=== PATIENT | female | born 1945 | race Caucasian/White ===

== ENCOUNTER → 2016-10-24 | Outpatient (CLI) | payer MEDICARE ==
--- NOTE | 2016-10-25 13:05 | MM ---
Reason for exam: screening (asymptomatic). Last mammogram was performed 1 year ago. History: Patient is postmenopausal. Excisional biopsy of the left breast. Took estrogen for 20 years beginning at age 46. Took progesterone for 20 years beginning at age 46. Physical Findings: A clinical breast exam by your physician is recommended on an annual basis and results should be correlated with mammographic findings. MG 3D Screening Mammo W/Cad Bilateral CC and MLO view(s) were taken. Prior study comparison: October 12, 2015, bilateral MG 3d screening mammo w/cad. September 24, 2013, bilateral MG screening mammo w CAD. September 14, 2012, bilateral digital screening mammo w/CAD. There are scattered fibroglandular densities. Breast density show slight increase compatible with the patients weight loss. No significant changes when compared with prior studies. ASSESSMENT: Negative, BI-RAD 1 RECOMMENDATION: Routine screening mammogram of both breasts in 1 year. Patient should continue monthly self breast exams. A negative mammogram should not preclude additional follow up of suspicious palpable abnormalities.
== END | disposition home or self-care (01) ==
LOC: RADMAMWWP 13:33
PROVIDERS: ATTEND Obstetrics & Gynecology
DX: Z12.31 Encounter for screening mammogram for malignant neoplasm of breast (principal)
CPT/HCPCS: 77063; G0202

== ENCOUNTER → 2018-12-11 | Outpatient (CLI) | payer MEDICARE ==
--- NOTE | 2018-12-14 13:16 | MM ---
Reason for exam: screening (asymptomatic). Last mammogram was performed 7 months ago. History: Patient is postmenopausal. Excisional biopsy of the left breast. Took estrogen for 20 years beginning at age 46. Took progesterone for 20 years beginning at age 46. Physical Findings: A clinical breast exam by your physician is recommended on an annual basis and results should be correlated with mammographic findings. MG 3D Screening Mammo W/Cad Bilateral CC and MLO view(s) were taken. Prior study comparison: May 20, 2018, mammogram, performed at [facility]. November 19, 2017, mammogram, performed at [facility]. November 06, 2017, mammogram, performed at [facility]. October 24, 2016, bilateral MG 3d screening mammo w/cad. October 12, 2015, bilateral MG 3d screening mammo w/cad. The breast tissue is heterogeneously dense. This may lower the sensitivity of mammography. Low axillary tail lymph nodes left posterior laterally. No significant changes when compared with prior studies. ASSESSMENT: Negative, BI-RAD 1 RECOMMENDATION: Routine screening mammogram of both breasts in 1 year.
== END | disposition home or self-care (01) ==
LOC: RADMAMWWP 12:05
PROVIDERS: ATTEND Internal Medicine
DX: Z12.31 Encounter for screening mammogram for malignant neoplasm of breast (principal); Z87.898 Personal history of other specified conditions
CPT/HCPCS: 77063; 77067

== ENCOUNTER 2019-09-08 21:05 | Inpatient (IN) | payer MEDICARE ==
[2019-09-08 22:16] LABS: Anisocytosis Slight; HCT 20.5 % (34.0-46.0); Hypochromasia Slight; MCH 31.7 pg (25.0-35.0); MCHC 32.5 g/dL (31.0-37.0); MCV 97.6 fL (80.0-100.0); Macrocytosis Slight; Mean Platelet Volume 10.3; Platelet Count 143 k/uL (150-450); Poikilocytosis Slight; RDW 17.7 % (11.5-15.5)
[2019-09-08] MEDS ORDERED: SODIUM CHLORIDE 0.9% 1,000 ML IV ONE (22:18)
--- NOTE | 2019-09-08 22:18 | ED ---
General Adult HPI - General Chief complaint: Recheck/Abnormal Lab/Rx Stated complaint: abnormal labs Time Seen by Provider: 09/08/19 21:15 Source: patient, RN/MD, EMS, RN notes reviewed, old records reviewed Mode of arrival: EMS Limitations: no limitations - History of Present Illness Initial comments: This is a 73-year-old female who presents emergency Department from [facility]. She went in there because her doctor had done some blood work and told her hemoglobin is low. Patient got a unit of blood prior to arrival here. Patient states she feels a little weak but she denied any shortness of breath or difficulty breathing. Patient denies any chest pain or palpitations. Patient was able to and bili in the emergency department and go to the bathroom on her own. Patient denied any pain. According to the [facility] physician the patient did have a guaiac positive stool. Patient's blood pressure was stable at [facility] and in transport as well as on arrival. - Related Data Home Medications Medication Instructions Recorded Confirmed Allopurinol [Zyloprim] 100 mg PO DAILY 09/08/19 09/08/19 Calcitriol [Rocaltrol] 0.25 mcg PO TU 09/08/19 09/08/19 Ferrous Sulfate [Feosol] 325 mg PO DAILY 09/08/19 09/08/19 Folate 666 mcg PO DAILY 09/08/19 09/08/19 Levothyroxine Sodium [Synthroid] 75 mcg PO DAILY 09/08/19 09/08/19 Losartan Potassium [Cozaar] 25 mg PO DAILY 09/08/19 09/08/19 NIFEdipine XL [Procardia Xl] 30 mg PO DAILY 09/08/19 09/08/19 Allergies Allergy/AdvReac Type Severity Reaction Status Date / Time No Known Allergies Allergy Unverified 09/08/19 21:40 Review of Systems ROS Statement: Those systems with pertinent positive or pertinent negative responses have been documented in the HPI. ROS Other: All systems not noted in ROS Statement are negative. Past Medical History Past Medical History: Hypertension, Renal Disease Additional Past Medical History / Comment(s): Anemia, Stage 4 kidney disease History of Any Multi-Drug Resistant Organisms: None Reported Past Surgical History: Appendectomy, Hysterectomy Past Psychological History: No Psychological Hx Reported Smoking Status: Never smoker Past Alcohol Use History: None Reported Past Drug Use History: None Reported General Exam - General Exam Comments Initial Comments: GENERAL: Patient is well-developed and well-nourished. Patient is nontoxic and well- hydrated and is in mild distress. ENT: Neck is soft and supple. No significant lymphadenopathy is noted. Oropharynx is clear. Moist mucous membranes. Neck has full range of motion without eliciting any pain. EYES: The sclera were anicteric and conjunctiva were pink and moist. Extraocular movements were intact and pupils were equal round and reactive to light. Eye lids were unremarkable. PULMONARY: Unlabored respirations. Good breath sounds bilaterally. No audible rales rhonchi or wheezing was noted. CARDIOVASCULAR: There is a regular rate and rhythm without any murmurs gallops or rubs. ABDOMEN: Soft and nontender with normal bowel sounds. No palpable organomegaly was noted. There is no palpable pulsatile mass. SKIN: Skin was pale NEUROLOGIC: Patient is alert and oriented x3. Cranial nerves II through XII are grossly intact. Motor and sensory are also intact. Normal speech, volume and content. Symmetrical smile. MUSCULOSKELETAL: Normal extremities with adequate strength and full range of motion. LYMPHATICS: No significant lymphadenopathy is noted PSYCHIATRIC: Normal psychiatric evaluation. Limitations: no limitations Course Vital Signs 09/08/19 09/08/19 21:28 22:12 Temperature 98.4 F 98.4 F Pulse Rate 89 93 Respiratory 16 16 Rate Blood Pressure 155/72 155/72 O2 Sat by Pulse 96 98 Oximetry Medical Decision Making - Medical Decision Making Patient received one unit of blood on the way and she was receiving a second unit of blood here in the emergency department. I spoke with Dr. layton. I admitted the patient admitted I wrote admitting orders. I consult the GI Disposition Clinical Impression: GI bleed, Anemia Disposition: ADMITTED IP TO THIS HOSP Referrals: Db Boyd MD [Primary Care Provider] - 1-2 days Time of Disposition: 22:17
[2019-09-08 22:23] LABS: HGB 6.7 gm/dL (11.4-16.0)
[2019-09-09 05:18] LABS: Total Cells Counted 100
[2019-09-09 05:21] LABS: Rouleaux Present
--- NOTE | 2019-09-09 06:37 | P.HPIM ---
History of Present Illness H&P Date: 09/08/19 Patient is 74-year-old female with of HTN and hypothyroidism who presented to the ED as a transfer from [facility] for severe anemia. The patient notes that she had been getting progressively weaker and feeling more lethargic over the past few weeks. She notes taking iron daily basis, and thereby did not notice any change in her stool. She denied bright red blood in her stools or bleeding ulcer. She also denied any additional complaints including abdominal pain, dizziness, nausea, or vomiting. She denied chest pain, shortness of breath, fever, chills, cough, recent travel, or sick contact. The patient underwent an extensive evaluation at [facility] which was reviewed, with hemoglobin 4.5, MCV 103.5, platelet count 135, WBC count 5.6, sodium 137, potassium 4.8, chloride 105, CO2 21, glucose 101, BUN 39, creatinine 2.3, AST 27, ALT 12, calcium 9.2, alkaline phosphatase 95, total protein 8.3, INR 1.1, fecal occult blood positive. First unit of PRBCs was ordered and the patient was transferred to [place] for GI evaluation. Review of Systems Pertinent positives and negatives as discussed in HPI, a complete review of systems was performed and all other systems are negative. Past Medical History Past Medical History: Hypertension, Renal Disease Additional Past Medical History / Comment(s): Anemia, Stage 4 kidney disease History of Any Multi-Drug Resistant Organisms: None Reported Past Surgical History: Appendectomy, Hysterectomy Past Psychological History: No Psychological Hx Reported Smoking Status: Never smoker Past Alcohol Use History: None Reported Past Drug Use History: None Reported Medications and Allergies Home Medications Medication Instructions Recorded Confirmed Type Allopurinol [Zyloprim] 100 mg PO DAILY 09/08/19 09/08/19 History Calcitriol [Rocaltrol] 0.25 mcg PO TU 09/08/19 09/08/19 History Ferrous Sulfate [Feosol] 325 mg PO DAILY 09/08/19 09/08/19 History Folate 666 mcg PO DAILY 09/08/19 09/08/19 History Levothyroxine Sodium [Synthroid] 75 mcg PO DAILY 09/08/19 09/08/19 History Losartan Potassium [Cozaar] 25 mg PO DAILY 09/08/19 09/08/19 History NIFEdipine XL [Procardia Xl] 30 mg PO DAILY 09/08/19 09/08/19 History Allergies Allergy/AdvReac Type Severity Reaction Status Date / Time No Known Allergies Allergy Unverified 09/08/19 21:40 Physical Exam Vitals: Vital Signs Temp Pulse Resp BP Pulse Ox 09/08/19 22:12 98.4 F 93 16 155/72 98 09/08/19 21:28 98.4 F 89 16 155/72 96 Intake and Output 09/08/19 09/08/19 09/08/19 06:59 14:59 22:59 Other: Weight 46.72 kg General: non toxic, no distress, appears at stated age, normal weight Derm: no unusual rashes/lesions no unusual ecchymoses, warm, dry Head: atraumatic, normocephalic, symmetric Eyes: EOMI, no lid lag, anicteric sclera, pupils equal round reactive to light ENT: Nose and ears atraumatic, no thrush, no pharyngeal erythema Neck: No thyromegaly, no cervical lymphadenopathy, trachea midline, supple Mouth: no lip lesion, mucus membranes moist Cardiovascular: S1S2 reg, no murmur, positive posterior tibial pulse bilateral, no edema, capillary refill less than 2 seconds Lungs: CTA bilateral, no rhonchi, no rales , no accessory muscle use Abdominal: soft, nontender to palpation, no guarding, no appreciable organomegaly, normal bowel sounds Ext: no gross muscle atrophy, muscle strength 5 out of 5 in all 4 extremities grossly, no contractures, Neuro: CN II-XI grossly intact, light touch intact all 4 extremities, finger to nose within normal limits, Psych: Alert, oriented, appropriate affect Results CBC & Chem 7: 09/08/19 21:49 Labs: Abnormal Lab Results - Last 24 Hours (Table) 09/08/19 Range/Units 21:49 RBC 2.10 L (3.80-5.40) m/uL Hgb 6.7 L* (11.4-16.0) gm/dL Hct 20.5 L (34.0-46.0) % RDW 17.7 H (11.5-15.5) % Plt Count 143 L (150-450) k/uL Assessment and Plan Plan: Severe anemia, likely secondary to GI bleeding with guaiac positive -Status post 1 unit of PRBCs -GI consult -Nothing by mouth for now -Monitor CBC every 8 hours Hypertension -Continue with home meds DVT prophylaxis -IPCDs The patient is admitted with an anticipated greater than 2 midnight stay for evaluation of GIB CODE STATUS: No Code Discussed with: Patient Anticipated discharge date: 2-[address]: Home A total of 40 minutes was spent on the care of this complex patient more than 5 0% of the time was spent in counseling and care coordination.
[2019-09-09 07:04] LABS: Anisocytosis Slight; HCT 26.7 % (34.0-46.0); Hypochromasia Slight; MCH 32.8 pg (25.0-35.0); MCHC 33.6 g/dL (31.0-37.0); MCV 97.8 fL (80.0-100.0); Macrocytosis Slight; Mean Platelet Volume 10.2; Platelet Count 133 k/uL (150-450); RBC 2.73 m/uL (3.80-5.40); RDW 16.6 % (11.5-15.5); WBC 4.7 k/uL (3.8-10.6)
[2019-09-09] MEDS: PANTOPRAZOLE 40 MG/10 ML VIAL IVP SCH ×2 (08:10→20:26)
[2019-09-09] MEDS: ALLOPURINOL 100 MG TAB PO SCH (08:10)
[2019-09-09] MEDS: LOSARTAN 25 MG TAB PO SCH (08:10)
[2019-09-09 08:51] LABS: Band Neutrophils % 7 %; Blast Cells # (M) 1.73 k/uL (0); Lymphocytes # (M) 1.97 k/uL (1.0-4.8); Metamyelocytes # (M) 0.05 k/uL (0); Metamyelocytes % 1 %; Monocytes # (M) 0.14 k/uL (0-1.0); Neutrophils % (M) 9 %; Nucleated Red Blood Cells 3 /100 WBC (0-0); Promyelocytes # (M) 0.14 k/uL (0); Promyelocytes % 3 %; WBC 4.8 k/uL (3.8-10.6)
[2019-09-09] MEDS ORDERED: NIFEdipine XL 30 MG TAB.ER.24 PO SCH (09:00)
[2019-09-09] MEDS ORDERED: FOLATE 666 MCG PO SCH (09:00)
[2019-09-09 09:51] LABS: Band Neutrophils % 1 %; Metamyelocytes # (M) 0.05 k/uL (0); Metamyelocytes % 1 %; Monocytes # (M) 0.42 k/uL (0-1.0); Neutrophils % (M) 21 %; Nucleated Red Blood Cells 0 /100 WBC (0-0)
[2019-09-09 09:53] LABS: Plasma Cells # (M) 0.09 k/uL (0)
[2019-09-09 09:54] LABS: Myelocytes # (M) 0.05 k/uL (0); Myelocytes % 1 %; Total Cells Counted 100
[2019-09-09 09:55] LABS: Blast Cells # (M) 1.65 k/uL (0)
[2019-09-09 14:00] VITALS: BMI 23.5
--- NOTE | 2019-09-09 14:55 | P.CONS ---
History of Present Illness - Reason for Consult Consult date: 09/09/19 blasts in peripheral blood Requesting physician: Milad Fernandes - Chief Complaint severe anemia - History of Present Illness Mrs. Jules is a very pleasant female who has been following with Dr. Chavez since 2011 as she has a history of ITP, no treatment, has been on observation only. She had non diagnostic bone marrow biopsies in August 2007 and February 2009. She is followed by Nephrology for CKD and subsequent anemia, on oral iron, no other treatment. Pt had routine labs and was found to be more anemic then he baseline (8-9), her occult was +, she had c/o progressive weakness, lethargy, severe tiredness, decreased appetite over the last 2-3 weeks. She was transferred here for further eval and work up. Her CBC on admit showed a 6.4 Hgb so, another unit was transfused, Hgb 9. On both CBCs blasts were found, 36% and 35% respectively. Pt denies fevers, recent illness, night sweats, new or unusual pain, difficulty swallowing, N,V, mild SOB on exertion, no chest pain, abd pain, acute changes in bowel or bladder habits. Review of Systems 14 point ROS is negative except as stated in HPI Past Medical History Past Medical History: Blood Disorder (ITP, anemia of CKD), Hypertension, Renal Disease Additional Past Medical History / Comment(s): Anemia, Stage 4 kidney disease History of Any Multi-Drug Resistant Organisms: None Reported Past Surgical History: Appendectomy, Hysterectomy Past Anesthesia/Blood Transfusion Reactions: No Reported Reaction Past Psychological History: No Psychological Hx Reported Smoking Status: Never smoker Past Alcohol Use History: None Reported Past Drug Use History: None Reported Medications and Allergies Home Medications Medication Instructions Recorded Confirmed Type Allopurinol [Zyloprim] 100 mg PO DAILY 09/08/19 09/08/19 History Calcitriol [Rocaltrol] 0.25 mcg PO TU 09/08/19 09/08/19 History Ferrous Sulfate [Feosol] 325 mg PO DAILY 09/08/19 09/08/19 History Folate 666 mcg PO DAILY 09/08/19 09/08/19 History Levothyroxine Sodium [Synthroid] 75 mcg PO DAILY 09/08/19 09/08/19 History Losartan Potassium [Cozaar] 25 mg PO DAILY 09/08/19 09/08/19 History NIFEdipine XL [Procardia Xl] 30 mg PO DAILY 09/08/19 09/08/19 History Allergies Allergy/AdvReac Type Severity Reaction Status Date / Time No Known Allergies Allergy Unverified 09/08/19 21:40 Physical Exam Vitals: Vital Signs Temp Pulse Pulse Resp BP BP Pulse Ox 09/09/19 11:01 16 09/09/19 11:00 98.8 F 82 16 145/72 96 09/09/19 08:09 16 09/09/19 08:07 98.2 F 80 16 156/84 97 09/09/19 04:00 98.3 F 81 16 166/73 96 09/08/19 22:48 98.3 F 81 17 164/70 97 09/08/19 22:12 98.4 F 93 16 155/72 98 09/08/19 21:28 98.4 F 89 16 155/72 96 Intake and Output 09/08/19 09/09/19 09/09/19 22:59 06:59 14:59 Intake Total 0 1290 Balance 0 1290 Intake: IV 630 Invasive Line 3 30 Sodium Chloride 0.9% 1, 600 000 ml @ 75 mls/hr IV . [id number] ONE Rx#:[id number] Oral 660 Blood Product 0 Rc As-1 Unit 0 [id number] Other: Voiding Method Toilet Toilet # Voids 2 Weight 45.9 kg 45.9 kg 45.9 kg - Constitutional General appearance: average body habitus, cooperative, no acute distress - EENT Eyes: anicteric sclerae, EOMI ENT: hearing grossly normal, normal oropharynx - Neck Neck: no lymphadenopathy - Respiratory Respiratory: bilateral: CTA - Cardiovascular Rhythm: regular Heart sounds: normal: S1, S2 Abnormal Heart Sounds: systolic murmur (2/6, RSB, 4th ICS) leg Peripheral Edema: bilateral: None - Gastrointestinal General gastrointestinal: no absent bowel sounds, no decreased bowel sounds, no distended, no hepatomegaly, no hyperactive bowel sounds, normal bowel sounds, no organomegaly, no rigid, no scaphoid, soft, no splenomegaly, no tenderness, no umbilical hernia, no ventral hernia - Integumentary Integumentary: pale - Neurologic Neurologic: CNII-XII intact - Musculoskeletal Musculoskeletal: generalized weakness, strength equal bilaterally - Psychiatric Psychiatric: A&O x's 3, appropriate affect, intact judgment & insight Results CBC & Chem 7: 09/09/19 06:11 Labs: Abnormal Lab Results - Last 24 Hours (Table) 09/08/19 09/08/19 09/09/19 Range/Units 21:49 21:49 06:11 RBC 2.10 L 2.73 L (3.80-5.40) m/uL Hgb 6.7 L* 9.0 L D (11.4-16.0) gm/dL Hct 20.5 L 26.7 L (34.0-46.0) % RDW 17.7 H 16.6 H (11.5-15.5) % Plt Count 143 L 133 L (150-450) k/uL Blast Cells % 36 H* 35 H* % Neutrophils # (Manual) 0.70 L 1.00 L (1.3-7.7) k/uL Metamyelocytes # (Man) 0.05 H 0.05 H (0) k/uL Myelocytes # (Manual) 0.05 H (0) k/uL Promyelocytes # (Man) 0.14 H (0) k/uL Blast Cells # (Man) 1.73 H 1.65 H (0) k/uL Plasma Cell # (Manual) 0.09 H (0) k/uL Nucleated RBCs 3 H (0-0) /100 WBC Crossmatch See Detail Assessment and Plan (1) GI bleed Narrative/Plan: GI evaluation. Current Visit: Yes Status: Acute Priority: High Code(s): K92.2 - GASTROINTESTINAL HEMORRHAGE, UNSPECIFIED SNOMED Code(s): 46184531 (2) Idiopathic thrombocytopenic purpura Narrative/Plan: History of, no treatment for the same, been on monitoring since 2011. Plt 133K, no acute intervention Current Visit: No Status: Chronic Priority: Low Code(s): D69.3 - IMMUNE THROMBOCYTOPENIC PURPURA SNOMED Code(s): 41842949 (3) Anemia in chronic kidney disease Narrative/Plan: Hgb baseline 8-9 range. No EPO supplementation. Transfuse if Hgb <7 Current Visit: Yes Status: Chronic Priority: High Code(s): N18.9 - CHRONIC KIDNEY DISEASE, UNSPECIFIED; D63.1 - ANEMIA IN CHRONIC KIDNEY DISEASE SNOMED Code(s): 046023861 Plan: BLASTS in peripheral blood: 2 separate lab draws, persistent, progressive anemia (bleeding vs marrow). Her WBC and platelets are at her baseline. Pt does have B symptoms of excessive fatigue, and weakness. Agree with GI eval to rule out acute bleeding. Plan for bone marrow. Pt has had in the past so, she is aware that I may schedule her for one JESÚS. She is ok with that. No acute intervention as her counts are otherwise ok. Ordered TLS labs, CMP.
[2019-09-09 15:19] LABS: Albumin 4.3 g/dL (3.5-5.0); Calcium 9.4 mg/dL (8.4-10.2); Phosphorus 4.2 mg/dL (2.5-4.5); Potassium 4.7 mmol/L (3.5-5.1); Total Bilirubin 0.8 mg/dL (0.2-1.3); Uric Acid 6.6 mg/dL (3.7-7.4)
--- NOTE | 2019-09-09 16:01 | P.PN ---
Subjective Progress Note Date: 09/09/19 Principal diagnosis: Anemia Patient was seen and examined. No acute events overnight. Patient reports improvement in her fatigue since blood transfusion. She denies any melena or blood in her stool. She denies any abdominal pain. She denies any chest pain, shortness breath or palpitations. No nausea or vomiting. No fever or chills. Objective - Vital Signs Vital signs: Vital Signs Temp 98.8 F 09/09/19 11:00 Pulse 82 09/09/19 11:00 Resp 16 09/09/19 11:01 BP 145/72 09/09/19 11:00 Pulse Ox 96 09/09/19 11:00 Intake & Output 09/08/19 09/09/19 09/09/19 18:59 06:59 18:59 Intake Total 0 1290 Balance 0 1290 Weight 45.9 kg 45.9 kg Intake: IV 630 Invasive Line 3 30 Sodium Chloride 0.9% 1, 600 000 ml @ 75 mls/hr IV . [id number] ONE Rx#:[id number] Oral 660 Blood Product 0 Rc As-1 Unit 0 [id number] Other: Voiding Method Toilet Toilet # Voids 2 - Exam General: [non toxic], [no distress], [appears at stated age] Derm: [warm], [dry] Head: [atraumatic], [normocephalic], [symmetric] Eyes: [EOMI], [no lid lag], [anicteric sclera] Mouth: [no lip lesion], [mucus membranes moist] Cardiovascular: [S1S2 reg], [no murmur], [positive posterior tibial pulse bilateral], Lungs: [CTA bilateral], [no rhonchi, no rales] , [no accessory muscle use] Abdominal: [soft], [ nontender to palpation], [no guarding], [no appreciable organomegaly] Ext: [no gross muscle atrophy], [no edema], [no contractures] Neuro: [ CN II-XI grossly intact], [no focal neuro deficits] Psych: [Alert], [oriented], [appropriate affect] - Labs CBC & Chem 7: 09/09/19 06:11 09/09/19 06:11 Labs: Abnormal Lab Results - Last 24 Hours (Table) 09/08/19 09/08/19 09/09/19 Range/Units 21:49 21:49 06:11 RBC 2.10 L 2.73 L (3.80-5.40) m/uL Hgb 6.7 L* 9.0 L D (11.4-16.0) gm/dL Hct 20.5 L 26.7 L (34.0-46.0) % RDW 17.7 H 16.6 H (11.5-15.5) % Plt Count 143 L 133 L (150-450) k/uL Blast Cells % 36 H* 35 H* % Neutrophils # (Manual) 0.70 L 1.00 L (1.3-7.7) k/uL Metamyelocytes # (Man) 0.05 H 0.05 H (0) k/uL Myelocytes # (Manual) 0.05 H (0) k/uL Promyelocytes # (Man) 0.14 H (0) k/uL Blast Cells # (Man) 1.73 H 1.65 H (0) k/uL Plasma Cell # (Manual) 0.09 H (0) k/uL Nucleated RBCs 3 H (0-0) /100 WBC Chloride (98-107) mmol/L Carbon Dioxide (22-30) mmol/L BUN (7-17) mg/dL Creatinine (0.52-1.04) mg/dL Crossmatch See Detail 09/09/19 Range/Units 06:11 RBC (3.80-5.40) m/uL Hgb (11.4-16.0) gm/dL Hct (34.0-46.0) % RDW (11.5-15.5) % Plt Count (150-450) k/uL Blast Cells % % Neutrophils # (Manual) (1.3-7.7) k/uL Metamyelocytes # (Man) (0) k/uL Myelocytes # (Manual) (0) k/uL Promyelocytes # (Man) (0) k/uL Blast Cells # (Man) (0) k/uL Plasma Cell # (Manual) (0) k/uL Nucleated RBCs (0-0) /100 WBC Chloride 110 H (98-107) mmol/L Carbon Dioxide 17 L (22-30) mmol/L BUN 33 H (7-17) mg/dL Creatinine 2.01 H (0.52-1.04) mg/dL Crossmatch Assessment and Plan Assessment: 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 She was transfused 1 unit PRBC and repeat hemoglobin was 9. Her symptoms are consistent with B symptoms. Patient reports previously following with Dr. Dr. Chan. There are plans to do a bone marrow biopsy. Hematology and oncology will be consulted for further diagnosis and management. There is initial concerns for GI bleed. Patient's CBC is suggestive of leukemia rather than acute GI bleed. Iron studies have been ordered. Reticulocyte count has been ordered. Plans on EGD canceled by GI. Patient's blood pressure is 145/72. She will be continued on losartan and nifedipine. Her vitals are be monitored and medications adjusted if necessary. Synthroid will be resumed for hypothyroidism. [Patient admitted for severe anemia. Received one PRBC. Found to have blast cells on peripheral smear. Hematology and oncology consulted.]
[2019-09-09] MEDS ORDERED: ACETAMINOPHEN TAB 325 MG TAB PO PRN (18:04)
--- NOTE | 2019-09-09 22:10 | CONS ---
CONSULTATION DATE OF DICTATION: 09/09/2019 REASON FOR CONSULTATION: Severe symptomatic anemia and dark-colored stool. HISTORY OF PRESENT ILLNESS: The patient is a 73-year-old pleasant white female with history of ITP who was admitted to the hospital because of severe symptomatic anemia and hemoglobin of 6.5 g/dL. She went to the emergency room at [facility]. She was noted to have a hemoglobin of 5.8, given one unit of blood transfusion, and was transferred to [facility]. Here her repeat hemoglobin was 6.5 g/dL and she was given another unit of blood transfusion. She denies any abdominal pain. No nausea, vomiting. No rectal bleeding or melena. She was complaining of progressive weakness and not feeling well, with tiredness for the last few days' duration. We are consulted in regards to anemia and dark-colored stool. The patient has been taking iron supplements for the last one year and her stools have been always darker in color. She denies any prior history of peptic ulcer disease or recent NSAID use. Last colonoscopy in 2016 in [facility] was normal, according to the patient. PAST MEDICAL HISTORY: Her past medical history is significant for ITP, hypertension, stage IV kidney disease. PAST SURGICAL HISTORY: Appendectomy, hysterectomy. HOME MEDICATIONS: Zyloprim, calcitriol, Feosol, Synthroid, Cozaar, Procardia, folate. ALLERGIES: NO KNOWN DRUG ALLERGIES. SOCIAL HISTORY: No smoking. No alcohol use. FAMILY HISTORY: Unremarkable. REVIEW OF SYSTEMS: CARDIOPULMONARY: No chest pain or shortness of breath. GENITOURINARY: No dysuria or hematuria. MUSCULOSKELETAL: Unremarkable. SKIN: Unremarkable. ENDOCRINE: Unremarkable. PSYCHIATRIC: Unremarkable. NEUROLOGY: Unremarkable. ENT/VISION: Unremarkable. CONSTITUTIONAL: No recent weight loss. No fever, chills, night sweats. PHYSICAL EXAMINATION: She appears comfortable. No apparent distress. VITAL SIGNS: Stable. Blood pressure was 149/71, pulse rate 80, temperature 98.6. HEENT examination unremarkable. Conjunctivae pale. Sclerae anicteric. Oral cavity no lesions. NECK: No JVD or lymph node enlargement. CHEST: Clear to auscultation. HEART: Regular rate and rhythm. ABDOMEN: Soft. Bowel sounds are positive. No organomegaly. EXTREMITIES: No pedal edema. SKIN: No rashes. NEUROLOGIC: Alert and oriented x3. No focal deficits. LABS: WBC 4.8, hemoglobin 6.7, platelets 143. Repeat hemoglobin after 2 units of blood transfusion was 9. There were 35% blasts noted in the peripheral smear. BUN and creatinine are 33 and 2.01, respectively. Rest of the labs are within normal limits. IMPRESSION: 1. This is a lady who presented with progressive fatigue and weakness for the last few weeks and noted to have a hemoglobin of 5.8, requiring 2 units of blood transfusion. She had a peripheral smear that showed evidence of blasts suspicious for bone marrow pathology. Clinically no evidence of active ongoing bleeding. She did have some dark-colored stools, but probably related to iron supplements. 2. History of idiopathic thrombocytopenic purpura. RECOMMENDATIONS: 1. No need for any endoscopic intervention at the present time. 2. Agree with bone marrow biopsy. 3. Will follow with you closely. Thank you for this consultation. MMODL / IJN: [id number] /
[2019-09-09] MEDS ORDERED: NIFEdipine XL 30 MG TAB.ER.24 PO STA (23:22)
[2019-09-10] MEDS ORDERED: hydrALAZINE HCL 50 MG TAB PO STA (03:50)
[2019-09-10 04:08] VITALS: TEMP 97.7
[2019-09-10] MEDS ORDERED: MIDAZOLAM 2 MG/2 ML VIAL IV PRN (05:22)
[2019-09-10] MEDS ORDERED: LIDOCAINE 1% (10MG/ML) FOR IV START INTRADERMA PRN (05:22)
[2019-09-10] MEDS ORDERED: LACTATED RINGERS 1,000 ML IV SCH (05:30)
[2019-09-10 06:29] LABS: Calcium 9.2 mg/dL (8.4-10.2); Total Bilirubin 1.2 mg/dL (0.2-1.3); Total Protein 7.8 g/dL (6.3-8.2)
[2019-09-10] MEDS ORDERED: LEVOTHYROXINE 75 MCG TAB PO SCH (06:30)
[2019-09-10 07:04] LABS: Reticulocyte % 2.2 % (0.5-2.0)
[2019-09-10] MEDS: PANTOPRAZOLE 40 MG/10 ML VIAL IVP SCH (09:22)
[2019-09-10] MEDS: ALLOPURINOL 100 MG TAB PO SCH (09:23)
[2019-09-10] MEDS: LOSARTAN 25 MG TAB PO SCH (09:23)
[2019-09-10 10:17] LABS: Anisocytosis Slight; HCT 28.9 % (34.0-46.0); HGB 9.1 gm/dL (11.4-16.0); Hypochromasia Slight; MCHC 31.5 g/dL (31.0-37.0); MCV 98.3 fL (80.0-100.0); Macrocytosis Slight; Mean Platelet Volume 11.7; Platelet Count 106 k/uL (150-450); RBC 2.94 m/uL (3.80-5.40); RDW 16.8 % (11.5-15.5)
[2019-09-10 10:59] LABS: Band Neutrophils % 7 %; Blast Cells # (M) 0.68 k/uL (0); Metamyelocytes # (M) 0.04 k/uL (0); Metamyelocytes % 1 %; Monocytes # (M) 0.16 k/uL (0-1.0); Neutrophils % (M) 21 %; Nucleated Red Blood Cells 4 /100 WBC (0-0); Total Cells Counted 100
[2019-09-10 11:00] LABS: Poikilocytosis (M) Present
[2019-09-10 12:07] VITALS: BP 135/73; PULSE 89; RESP 16
[2019-09-10 12:07] LABS: % Iron Saturation 48.51 (12.00-45.00)
--- NOTE | 2019-09-10 12:57 | P.PN ---
Subjective Progress Note Date: 09/10/19 Principal diagnosis: Anemia Patient was seen and examined. No acute events overnight. Patient reports improvement in her fatigue since blood transfusion. She denies any melena or blood in her stool. She denies any abdominal pain. She denies any chest pain, shortness breath or palpitations. No nausea or vomiting. No fever or chills. Upset that she can't eat anything until her biopsy. States that today [birth year] birthday. Objective - Vital Signs Vital signs: Vital Signs Temp 97.7 F 09/10/19 08:00 Pulse 89 09/10/19 12:00 Resp 16 09/10/19 12:00 BP 135/73 09/10/19 12:00 Pulse Ox 96 09/10/19 12:00 Intake & Output 09/09/19 09/10/19 09/10/19 18:59 06:59 18:59 Intake Total 1640 310 Output Total 700 Balance 1640 -390 Weight 45.9 kg 46 kg Intake: IV 630 Invasive Line 3 30 Sodium Chloride 0.9% 1, 600 000 ml @ 75 mls/hr IV . [id number] Rx#:[id number] Oral 1010 Blood Product 310 Rc As-1 Unit 310 [id number] Output: Urine 700 Other: Voiding Method Toilet Toilet # Voids 2 - Exam General: [non toxic], [no distress], [appears at stated age] Derm: [warm], [dry] Head: [atraumatic], [normocephalic], [symmetric] Eyes: [EOMI], [no lid lag], [anicteric sclera] Mouth: [no lip lesion], [mucus membranes moist] Cardiovascular: [S1S2 reg], [no murmur], [positive posterior tibial pulse bilateral], Lungs: [CTA bilateral], [no rhonchi, no rales] , [no accessory muscle use] Abdominal: [soft], [ nontender to palpation], [no guarding], [no appreciable organomegaly] Ext: [no gross muscle atrophy], [no edema], [no contractures] Neuro: [no focal neuro deficits] Psych: [Alert], [oriented], [appropriate affect] - Labs CBC & Chem 7: 09/10/19 05:39 09/10/19 05:39 Labs: Abnormal Lab Results - Last 24 Hours (Table) 09/08/19 09/08/19 09/09/19 Range/Units 21:49 21:49 06:11 RBC (3.80-5.40) m/uL Hgb (11.4-16.0) gm/dL Hct (34.0-46.0) % RDW (11.5-15.5) % Plt Count (150-450) k/uL Blast Cells % % Neutrophils # (Manual) (1.3-7.7) k/uL Metamyelocytes # (Man) (0) k/uL Blast Cells # (Man) (0) k/uL Nucleated RBCs (0-0) /100 WBC Pathologist Review See comment A Retic Count (0.5-2.0) % Chloride 110 H (98-107) mmol/L Carbon Dioxide 17 L (22-30) mmol/L BUN 33 H (7-17) mg/dL Creatinine 2.01 H (0.52-1.04) mg/dL % Saturation (12.00-45.00) Crossmatch See Detail 09/10/19 09/10/19 09/10/19 Range/Units 05:39 05:39 05:39 RBC 2.94 L (3.80-5.40) m/uL Hgb 9.1 L (11.4-16.0) gm/dL Hct 28.9 L (34.0-46.0) % RDW 16.8 H (11.5-15.5) % Plt Count 106 L (150-450) k/uL Blast Cells % 17 H* % Neutrophils # (Manual) 1.10 L (1.3-7.7) k/uL Metamyelocytes # (Man) 0.04 H (0) k/uL Blast Cells # (Man) 0.68 H (0) k/uL Nucleated RBCs 4 H (0-0) /100 WBC Pathologist Review Retic Count 2.2 H (0.5-2.0) % Chloride 109 H (98-107) mmol/L Carbon Dioxide (22-30) mmol/L BUN 30 H (7-17) mg/dL Creatinine 2.12 H (0.52-1.04) mg/dL % Saturation 48.51 H (12.00-45.00) Crossmatch Assessment and Plan Assessment: 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 She was transfused 1 unit PRBC and repeat hemoglobin was 9, 9.1. Her symptoms are consistent with B symptoms. Patient reports previously following with Dr. Dr. Chan. There are plans to do a bone marrow biopsy today. Hematology and oncology will be consulted for further diagnosis and management. There is initial concerns for GI bleed. Patient's CBC is suggestive of leukemia rather than acute GI bleed. Iron studies are relatively normal and reticulocyte count is slightly elevated.. Plans on EGD canceled by GI. Patient's blood pressure is 135/73. She will be continued on losartan and nifedipine. Her vitals are be monitored and medications adjusted if necessary. Synthroid will be resumed for hypothyroidism. [Patient admitted for severe anemia. Received one PRBC. Found to have blast cells on peripheral smear. Plans for bone marrow biopsy today. Hematology and oncology consulted for further management.]
[2019-09-10] MEDS ORDERED: IV FLUID CONTINUATION 700 ML IV ONE (14:07)
[2019-09-10] MEDS ORDERED: PROPOFOL 10 MG/ML 20 ML VIAL IV ONE ×2 (14:09)
--- NOTE | 2019-09-10 14:35 | P.PCN ---
Date of Procedure: 09/10/19 Preoperative Diagnosis: Anemia, blasts on peripheral smear, suspected acute leukemia Postoperative Diagnosis: Same Procedure(s) Performed: Bone marrow aspiration biopsy Anesthesia: MAC Surgeon: Keagan Escobar High Pressure Firer #1: Stated None Estimated Blood Loss (ml): 1 Pathology: other Condition: stable Disposition: floor Indications for Procedure: Progressive anemia, new onset of blasts on peripheral smear. Operative Findings: Adequate samples Description of Procedure: The procedure was explained indicated to the patient on the floor. Informed consent was obtained on the floor. She was brought to the outpatient endoscopy suite and placed in the left lateral decubitus position. The area over both posterior iliac crests was cleaned and prepped with chlorhexidine and sterile draping. IV sedation was then initiated. Local anesthesia was administered with lidocaine to the right posterior hilar crest. A Jamshidi needle was then inserted and bone marrow aspirate and biopsy obtained. On the first pass the amount of aspirate was quite small. Therefore an additional past was made with adequate aspirate obtained. On withdrawal of the needle hemostasis was easily achieved. Blood loss was minimal and recovery from sedation satisfactory. She appeared to have tolerated the procedure well without any obvious immediate complications.
--- NOTE | 2019-09-11 00:57 | P.PN ---
Subjective Progress Note Date: 09/11/19 Patient was evaluated prior to her bone marrow. She continues to have some generalized weakness and fatigue. She denied any fever or chills. No unusual bleeding or bruising noted. Objective - Vital Signs Vital signs: Vital Signs Temp 97.7 F 09/10/19 08:00 Pulse 89 09/10/19 12:00 Resp 16 09/10/19 12:00 BP 135/73 09/10/19 12:00 Pulse Ox 96 09/10/19 12:00 Intake & Output 09/10/19 09/10/19 09/11/19 06:59 18:59 06:59 Intake Total 310 300 Output Total 700 Balance -390 300 Weight 46 kg Intake: IV 300 Blood Product 310 Rc As-1 Unit 310 [id number] Output: Urine 700 Other: Voiding Method Toilet # Voids 1 - Constitutional General appearance: Present: no acute distress - EENT Eyes: Present: EOMI ENT: Present: hearing grossly normal, normal oropharynx - Respiratory Respiratory: bilateral: CTA - Cardiovascular Rhythm: regular Heart sounds: normal: S1, S2 - Gastrointestinal General gastrointestinal: Present: normal bowel sounds, soft - Integumentary Integumentary: Present: normal - Neurologic Neurologic: Present: CNII-XII intact - Musculoskeletal Musculoskeletal: Present: generalized weakness, strength equal bilaterally - Psychiatric Psychiatric: Present: A&O x's 3 - Labs CBC & Chem 7: 09/10/19 05:39 09/10/19 05:39 Labs: Abnormal Lab Results - Last 24 Hours (Table) 09/10/19 09/10/19 09/10/19 Range/Units 05:39 05:39 05:39 RBC 2.94 L (3.80-5.40) m/uL Hgb 9.1 L (11.4-16.0) gm/dL Hct 28.9 L (34.0-46.0) % RDW 16.8 H (11.5-15.5) % Plt Count 106 L (150-450) k/uL Blast Cells % 17 H* % Neutrophils # (Manual) 1.10 L (1.3-7.7) k/uL Metamyelocytes # (Man) 0.04 H (0) k/uL Blast Cells # (Man) 0.68 H (0) k/uL Nucleated RBCs 4 H (0-0) /100 WBC Retic Count 2.2 H (0.5-2.0) % Chloride 109 H (98-107) mmol/L BUN 30 H (7-17) mg/dL Creatinine 2.12 H (0.52-1.04) mg/dL % Saturation 48.51 H (12.00-45.00) Lactate Dehydrogenase (313-618) U/L 09/10/19 Range/Units 05:39 RBC (3.80-5.40) m/uL Hgb (11.4-16.0) gm/dL Hct (34.0-46.0) % RDW (11.5-15.5) % Plt Count (150-450) k/uL Blast Cells % % Neutrophils # (Manual) (1.3-7.7) k/uL Metamyelocytes # (Man) (0) k/uL Blast Cells # (Man) (0) k/uL Nucleated RBCs (0-0) /100 WBC Retic Count (0.5-2.0) % Chloride (98-107) mmol/L BUN (7-17) mg/dL Creatinine (0.52-1.04) mg/dL % Saturation (12.00-45.00) Lactate Dehydrogenase 1342 H (313-618) U/L Assessment and Plan (1) Anemia Narrative/Plan: Patient's hemoglobin is stable posttransfusion. It is currently stable in a safe range. Workup so far indicates that this is a hypoproliferative anemia, due to a primary bone marrow disorder Status: Acute Code(s): D64.9 - ANEMIA, UNSPECIFIED SNOMED Code(s): 456970564 (2) Blood dyscrasia Narrative/Plan: While total CBC is normal, the patient has obvious left shift with significant number of blasts. This is highly suspicious for primary bone marrow disorder, including acute leukemia, evolved from underlying myelodysplasia, or myelodysplasia in evolution among the differentials. Therefore bone marrow asp iration biopsy is being performed for further workup. Status: Acute Code(s): D75.9 - DISEASE OF BLOOD AND BLOOD-FORMING ORGANS, UNSPECIFIED SNOMED Code(s): 348656481 Plan: Add: As patient's hemoglobin and platelets are in a safe range, from our standpoint it is okay to discharge the patient home. We will monitor counts as an outpatient for supportive transfusions as needed. She'll follow-up in the office next week for the same. She'll follow-up with Dr. Chavez on 09/20/19 for discussion of bone marrow results. Case, and further plan from the hematology standpoint discussed in detail with the admitting service
[2019-09-14] MEDS ORDERED: CALCITRIOL 0.25 MCG CAP PO SCH (09:00)
--- NOTE | 2019-09-14 16:09 | P.DS ---
Providers Date of admission: 09/08/19 22:18 Expected date of discharge: 09/10/19 Attending physician: Mercy Carias MD Consults: 09/08/19 22:18 Consult Physician Urgent Consulting Provider: Joanna Rich Consult Reason/Comments: GI bleed Do you want consulting provider notified?: Yes 09/09/19 09:56 Consult Physician Stat Consulting Provider: Keagan Escobar Consult Reason/Comments: blast cells Do you want consulting provider notified?: Yes Primary care physician: [facility] Course: Patient is 74-year-old female with of HTN and hypothyroidism who presented to the ED as a transfer from [facility] for severe anemia. The patient notes that she had been getting progressively weaker and feeling more lethargic over the past few weeks. She notes taking iron daily basis, and thereby did not notice any change in her stool. She denied bright red blood in her stools or bleeding ulcer. She also denied any additional complaints including abdominal pain, dizziness, nausea, or vomiting. She denied chest pain, shortness of breath, fever, chills, cough, recent travel, or sick contact. The patient underwent an extensive evaluation at [facility] which was reviewed, with hemoglobin 4.5, MCV 103.5, platelet count 135, WBC count 5.6, sodium 137, potassium 4.8, chloride 105, CO2 21, glucose 101, BUN 39, creatinine 2.3, AST 27, ALT 12, calcium 9.2, alkaline phosphatase 95, total protein 8.3, INR 1.1, fecal occult blood positive. First unit of PRBCs was ordered and the patient was transferred to [place] for GI evaluation. Patient admitted with hemoglobin of 6.7 with 36% blast cells. She was transfused 1 unit PRBC and repeat hemoglobin was 9, 9.1. Her symptoms were consistent with B symptoms. GI was consulted due to her guaiac positive results but EGD was canceled when her source of anemia was thought to be related to leukemic process rather than GI bleed. Otherwise, her home medication was resumed for hypertension and hypothyroidism. She underwent bone marrow biopsy and was cleared for discharge with outpatient oncology follow-up. 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 She was transfused 1 unit PRBC and repeat hemoglobin was 9, 9.1. Her symptoms are consistent with B symptoms. Patient reports previously following with Dr. Dr. Chan. There are plans to do a bone marrow biopsy today. Hematology and oncology will be consulted for further diagnosis and management. There is initial concerns for GI bleed. Patient's CBC is suggestive of leukemia rather than acute GI bleed. Iron studies are relatively normal and reticulocyte count is slightly elevated. Plans on EGD canceled by GI. Patient's blood pressure is 135/73. She will be continued on losartan and nifedipine. Her vitals are be monitored and medications adjusted if necessary. Synthroid will be resumed for hypothyroidism. [Patient admitted for severe anemia. Received one PRBC. Found to have blast cells on peripheral smear. Plans for bone marrow biopsy today. Discussed with Dr. Escobar, patient cleared for discharge after her biopsy for follow up with oncology in the outpatient setting. This complex discharge took about 35 minutes to complete.] Pertinent Studies: Peripheral blood smear Procedures: Bone marrow biopsy Patient Condition at Discharge: Stable Plan - Discharge Summary Discharge Rx Participant: No New Discharge Prescriptions: Continue NIFEdipine XL [Procardia XL] 30 mg PO DAILY Losartan Potassium [Cozaar] 25 mg PO DAILY Levothyroxine Sodium [Synthroid] 75 mcg PO DAILY Ferrous Sulfate [Iron (65 MG Elemental)] 325 mg PO DAILY Calcitriol [Rocaltrol] 0.25 mcg PO TU Allopurinol [Zyloprim] 100 mg PO DAILY Folate 666 mcg PO DAILY Discharge Medication List Allopurinol [Zyloprim] 100 mg PO DAILY 09/08/19 [History] Calcitriol [Rocaltrol] 0.25 mcg PO TU 09/08/19 [History] Ferrous Sulfate [Iron (65 MG Elemental)] 325 mg PO DAILY 09/08/19 [History] Folate 666 mcg PO DAILY 09/08/19 [History] Levothyroxine Sodium [Synthroid] 75 mcg PO DAILY 09/08/19 [History] Losartan Potassium [Cozaar] 25 mg PO DAILY 09/08/19 [History] NIFEdipine XL [Procardia XL] 30 mg PO DAILY 09/08/19 [History] Follow up Appointment(s)/Referral(s): Jessy Woodall NPC [Nurse Practitioner] - 09/14/19 2:00 pm Db Boyd MD [Primary Care Provider] - 1-2 days (Please call this office Friday morning to schedule an appointment) Patient Instructions/Handouts: Low-Sodium Diet (DC), Anemia (DC) Activity/Diet/Wound Care/Special Instructions: Diet: Low-salt Follow-up with PCP within 3 days of discharge. Follow-up with hematology within 1 week of discharge. Follow-up with Dr. Merrill within 2 weeks of discharge. Follow-up care core loader for results of your bone marrow biopsy Discharge Disposition: HOME SELF-CARE
== END 2019-09-10 16:38 | disposition home or self-care (01) | DRG 835 ==
LOC: EC 21:05 → SUPCPDRO 21:05 → 3SCARD 22:18
PROVIDERS: ADMIT Internal Medicine; ATTEND Internal Medicine
PROC: 30233N1 Transfusion of Nonautologous Red Blood Cells into Peripheral Vein, Percutaneous Approach (ICD-10-PCS; principal; 2019-09-08)
PROC: 07DR3ZX Extraction of Iliac Bone Marrow, Percutaneous Approach, Diagnostic (ICD-10-PCS; 2019-09-10)
DX: C92.00 Acute myeloblastic leukemia, not having achieved remission (principal); D61.9 Aplastic anemia, unspecified; D69.3 Immune thrombocytopenic purpura; K92.1 Melena; N18.4 Chronic kidney disease, stage 4 (severe); D63.1 Anemia in chronic kidney disease; E03.9 Hypothyroidism, unspecified; I12.9 Hypertensive chronic kidney disease with stage 1 through stage 4 chronic kidney disease, or unspecified chronic kidney disease; Z79.890 Hormone replacement therapy; Z79.899 Other long term (current) drug therapy; Z90.710 Acquired absence of both cervix and uterus; Z90.49 Acquired absence of other specified parts of digestive tract; Z11.59 Encounter for screening for other viral diseases; D75.9 Disease of blood and blood-forming organs, unspecified; Z66 Do not resuscitate
CPT/HCPCS: 36415; 36430; 38222; 80053; 82607; 82747; 83540; 83550; 83615; 84100; 84550; 85025; 85045; 86850; 86900; 86901; 86920; 96360; 96361; 99285

== ENCOUNTER 2019-09-24 12:16 | Day surgery (SDC) | payer MEDICARE ==
[2019-09-24] MEDS ORDERED: LIDOCAINE 1% INJ 10MG/ML (20 ML MDV) ONE (13:03)
[2019-09-24] MEDS ORDERED: LIDOCAINE 1% INJ 10MG/ML (20 ML MDV) SQ ONE (13:10)
[2019-09-24 13:38] VITALS: PULSE 70; RESP 16; TEMP 98.3
--- NOTE | 2019-09-24 13:53 | IR ---
PICC LINE PLACEMENT: HISTORY: Chemotherapy PROCEDURE: Ultrasound and fluoroscopic guidance of PICC line placement. COMPLICATIONS: None ANESTHESIA: 1. 1% Lidocaine locally. FINDINGS/TECHNIQUE: The procedure was explained to the patient. The risks, complications, benefits and alternatives were discussed and any questions were answered. Informed consent was obtained. The patient was placed supine on the fluoroscopic table and prepped and draped in the usual sterile fash ion. Utilizing a 21 gauge needle and sonographic and fluoroscopic guidance, access in the left basi lic vein was achieved and there is placement of a 0.018 guidewire. The vein is patent. A 5-Fr sheat h was placed over the guidewire. The guidewire and dilator were removed and a 5-F. Double lumen PICC line was placed through the sheath with the tip at the level of the SVC. The sheath was removed, th e catheter was flushed and sutured into position. The patient was stable throughout the procedure an d remained stable upon discharge from the Department of Radiology. The vein puncture was patent under ultrasound. A arroyo scale image was obtained to document patency of the vein punctured. All elements of the maximal barrier technique were utilized. FLUOROSCOPY TIME: 0.1 minutes IMPRESSION: Successful PICC double lumen line placement under ultrasound and fluoroscopic guidance.
[2019-09-24 17:18] VITALS: BP 157/77
== END 2019-09-24 14:40 | disposition home or self-care (01) ==
LOC: CATHCVL 12:16
PROVIDERS: ATTEND Radiology Diagnostic Radiology
DX: C95.90 Leukemia, unspecified not having achieved remission (principal); D63.1 Anemia in chronic kidney disease; D63.8 Anemia in other chronic diseases classified elsewhere; E03.9 Hypothyroidism, unspecified; I12.9 Hypertensive chronic kidney disease with stage 1 through stage 4 chronic kidney disease, or unspecified chronic kidney disease; N18.4 Chronic kidney disease, stage 4 (severe); Z90.49 Acquired absence of other specified parts of digestive tract; Z90.710 Acquired absence of both cervix and uterus; Z79.899 Other long term (current) drug therapy; Z79.890 Hormone replacement therapy
CPT/HCPCS: 36573; C1751; C1769; J2001

== ENCOUNTER 2019-09-27 09:53 | Inpatient (IN) | payer MEDICARE ==
[2019-09-27] MEDS: SODIUM CHLORIDE 0.9% 1,000 ML IV SCH ×3 (11:05→20:53)
[2019-09-27] MEDS: VORICONAZOLE 200 MG PO SCH ×2 (11:06→21:03)
[2019-09-27] MEDS: VENCLEXTA 100 MG PO SCH (11:06)
[2019-09-27 11:24] LABS: Albumin 4.4 g/dL (3.5-5.0); Calcium 9.2 mg/dL (8.4-10.2); Magnesium 1.9 mg/dL (1.6-2.3); Phosphorus 3.9 mg/dL (2.5-4.5); Potassium 5.2 mmol/L (3.5-5.1); Total Bilirubin 0.7 mg/dL (0.2-1.3); Total Protein 8.2 g/dL (6.3-8.2); Uric Acid 5.8 mg/dL (3.7-7.4)
[2019-09-27 11:29] LABS: Anisocytosis Slight; Hypochromasia Slight; MCH 31.3 pg (25.0-35.0); MCHC 31.8 g/dL (31.0-37.0); MCV 98.2 fL (80.0-100.0); Macrocytosis Slight; Mean Platelet Volume 11.1; Platelet Count 100 k/uL (150-450); RBC 2.13 m/uL (3.80-5.40); RDW 16.6 % (11.5-15.5)
[2019-09-27 11:45] LABS: HGB 6.7 gm/dL (11.4-16.0)
[2019-09-27] MEDS: SALT AND SODA MOUTHWASH 1,000 ML PO SCH ×3 (12:17→20:52)
[2019-09-27] MEDS: [UNRECOGNIZED DRUG - OTHER] IV SCH (12:18)
[2019-09-27] MEDS: SODIUM CHLORIDE 0.9% IV SCH (12:18)
[2019-09-27 12:20] LABS: Band Neutrophils % 3 %; Lymphocytes # (M) 2.75 k/uL (1.0-4.8); Metamyelocytes # (M) 0.11 k/uL (0); Metamyelocytes % 1 %; Monocytes # (M) 1.32 k/uL (0-1.0); Myelocytes # (M) 0.22 k/uL (0); Myelocytes % 2 %; Neutrophils % (M) 10 %
[2019-09-27 12:21] LABS: Nucleated Red Blood Cells 0 /100 WBC (0-0); Total Cells Counted 200
[2019-09-27 12:22] LABS: Poikilocytosis (M) Present
[2019-09-27] MEDS ORDERED: ONDANSETRON 4 MG/2 ML VIAL IVP PRN (12:42)
[2019-09-27] MEDS ORDERED: LOPERAMIDE 2 MG CAP PO PRN (12:42)
[2019-09-27] MEDS ORDERED: MAGNESIUM HYDROXIDE 2,400 MG/10 ML CUP PO PRN (12:42)
[2019-09-27 15:43] LABS: Anisocytosis Slight; Hypochromasia Slight; MCH 30.5 pg (25.0-35.0); MCHC 31.5 g/dL (31.0-37.0); MCV 96.7 fL (80.0-100.0); Macrocytosis Slight; Mean Platelet Volume 11.2; RBC 2.01 m/uL (3.80-5.40); RDW 16.7 % (11.5-15.5); WBC 7.1 k/uL (3.8-10.6)
[2019-09-27 15:52] LABS: Albumin 3.9 g/dL (3.5-5.0); Calcium 8.6 mg/dL (8.4-10.2); Phosphorus 3.6 mg/dL (2.5-4.5); Total Bilirubin 0.5 mg/dL (0.2-1.3); Total Protein 7.4 g/dL (6.3-8.2); Uric Acid 5.4 mg/dL (3.7-7.4)
[2019-09-27 15:56] LABS: HCT 19.5 % (34.0-46.0); HGB 6.1 gm/dL (11.4-16.0)
[2019-09-27 15:57] LABS: Platelet Count 82 k/uL (150-450)
[2019-09-27 16:20] LABS: Band Neutrophils % 4 %; Metamyelocytes # (M) 0.14 k/uL (0); Metamyelocytes % 2 %; Myelocytes # (M) 0.07 k/uL (0); Myelocytes % 1 %; Neutrophils % (M) 12 %; Promyelocytes # (M) 0.07 k/uL (0); Promyelocytes % 1 %
[2019-09-27 16:21] LABS: Nucleated Red Blood Cells 0 /100 WBC (0-0); Total Cells Counted 100
[2019-09-27 16:23] LABS: Blast Cells # (M) 3.12 k/uL (0); Large Platelets Present; Lymphocytes # (M) 2.06 k/uL (1.0-4.8)
[2019-09-27] MEDS: ACETAMINOPHEN TAB 325 MG TAB PO PRN (17:07)
[2019-09-27] MEDS ORDERED: ACETAMINOPHEN SUPPOSITORY 650 MG SUPP RECTAL STA (17:19)
--- NOTE | 2019-09-27 17:35 | P.HPIM ---
History of Present Illness H&P Date: 09/27/19 Chief Complaint: Admit for AML treatment Mrs. Kingston is a very pleasant 74-year-old female patient of Dr. Chavez with a past medical history significant for ITP, no treatment, observation only. She had non diagnostic bone marrow biopsies in August 2007 and February of 2009. August 2019 she presented to [facility] with progressive weakness,fatigue, found to have severe anemia, requiring blood transfusion. 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 She had only mild constitutional symptoms, no fever, night sweats or weight loss. She is now being admitted for induction with venetoclax and Dacogen. Patient is in good spirits, 14 point review of systems is negative on admit. Review of Systems 14 point review of systems is negative except as stated in HPI Past Medical History Past Medical History: Blood Disorder, Cancer, Hypertension, Renal Disease Additional Past Medical History / Comment(s): Anemia, Stage 4 kidney disease, AML- started inpt. chemo 09/27/19- History of Any Multi-Drug Resistant Organisms: None Reported Past Surgical History: Appendectomy, Hysterectomy Past Anesthesia/Blood Transfusion Reactions: No Reported Reaction Past Psychological History: No Psychological Hx Reported Smoking Status: Never smoker Past Alcohol Use History: None Reported Past Drug Use History: None Reported - Past Family History Father Family Medical History: Cancer Additional Family Medical History / Comment(s): esophageal cancer Mother Family Medical History: Hypertension Medications and Allergies Home Medications Medication Instructions Recorded Confirmed Type Allopurinol [Zyloprim] 100 mg PO DAILY 09/08/19 09/27/19 History Calcitriol [Rocaltrol] 0.25 mcg PO TU 09/08/19 09/27/19 History Folate 666 mcg PO DAILY 09/08/19 09/27/19 History Levothyroxine Sodium [Synthroid] 75 mcg PO DAILY 09/08/19 09/27/19 History Losartan Potassium [Cozaar] 25 mg PO DAILY 09/08/19 09/27/19 History NIFEdipine XL [Procardia XL] 30 mg PO DAILY 09/08/19 09/27/19 History Venetoclax [Venclexta] 100 mg PO DAILY 09/27/19 09/27/19 History Voriconazole [Vfend] 200 mg PO Q12HR 09/27/19 09/27/19 History Allergies Allergy/AdvReac Type Severity Reaction Status Date / Time No Known Allergies Allergy Verified 09/27/19 11:24 Physical Exam Vitals: Vital Signs Temp Pulse Resp BP Pulse Ox 09/27/19 10:35 98.0 F 92 15 133/69 98 Intake and Output 09/26/19 09/27/19 09/27/19 22:59 06:59 14:59 Other: Weight 45.767 kg - Constitutional General appearance: average body habitus, cooperative, no acute distress - EENT Eyes: anicteric sclerae, EOMI, dentition normal ENT: hearing grossly normal, normal oropharynx - Neck Neck: no lymphadenopathy - Respiratory Respiratory: bilateral: CTA - Cardiovascular Rhythm: regular Heart sounds: normal: S1, S2 Abnormal Heart Sounds: systolic murmur (Greatest that right sternal border, third intercostal space, 2 out of 6 ) - Gastrointestinal General gastrointestinal: no absent bowel sounds, no decreased bowel sounds, no distended, no hepatomegaly, no hyperactive bowel sounds, normal bowel sounds, no organomegaly, no rigid, no scaphoid, soft, no splenomegaly, no tenderness, no umbilical hernia, no ventral hernia - Integumentary Integumentary: normal turgor, pale - Neurologic Neurologic: CNII-XII intact - Musculoskeletal Musculoskeletal: strength equal bilaterally - Psychiatric Psychiatric: A&O x's 3, appropriate affect, intact judgment & insight Results CBC & Chem 7: 09/27/19 15:27 09/27/19 15:27 Labs: Abnormal Lab Results - Last 24 Hours (Table) 09/27/19 09/27/19 Range/Units 11:00 11:00 WBC 11.0 H (3.8-10.6) k/uL RBC 2.13 L (3.80-5.40) m/uL Hgb 6.7 L* D (11.4-16.0) gm/dL Hct 21.0 L (34.0-46.0) % RDW 16.6 H (11.5-15.5) % Plt Count 100 L (150-450) k/uL Blast Cells % 50 H* % Monocytes # (Manual) 1.32 H (0-1.0) k/uL Metamyelocytes # (Man) 0.11 H (0) k/uL Myelocytes # (Manual) 0.22 H (0) k/uL Blast Cells # (Man) 5.50 H (0) k/uL Sodium 135 L (137-145) mmol/L Potassium 5.2 H (3.5-5.1) mmol/L Carbon Dioxide 21 L (22-30) mmol/L BUN 47 H (7-17) mg/dL Creatinine 1.89 H (0.52-1.04) mg/dL Thrombosis Risk Factor Assmnt - DVT/VTE Prophylaxis DVT/VTE Prophylaxis: Mechanical Prophylaxis ordered (While in bed. Early ambulation encouraged ) - Choose All That Apply Any of the Below Risk Factors Present?: No Other Risk Factors: Yes Each Risk Factor Represents 2 Points: Malignancy Each Risk Factor Represents 3 Points: Age 75 years or older Other congenital or acquired thrombophilia - If yes, enter type in comment: No Thrombosis Risk Factor Assessment Total Risk Factor Score: 5 Thrombosis Risk Factor Assessment Level: High Risk Assessment and Plan (1) Acute myeloid leukemia Narrative/Plan: Admitted for induction treatment with oral venetoclax and IV Dacogen 5 days. Orders reviewed. Supportive medications ordered for side effects. Preventative medications ordered. Reviewed anticipated hospital course with patient and her daughter at the [facility]. Home meds reviewed and reconciled. DVT prophylaxis with SCDs while in bed and early/frequent ambulation Ambulation ordered. Frequent labs, monitoring for tumor lysis syndrome. Patient is on allopurinol. Grayson fluids both IV and oral. Strict I's and O's to avoid fluid overload. Bone marrow biopsy and aspirate in 21 days reevaluate effectiveness of treatment. Current Visit: Yes Status: Acute Priority: High Code(s): C92.00 - ACUTE MYELOBLASTIC LEUKEMIA, NOT HAVING ACHIEVED REMISSION SNOMED Code(s): 78345033 (2) Pancytopenia Narrative/Plan: No [id number] is not confirmed AML remission Transfuse for hemoglobin less than 7 or symptomatic. 1 unit PRBCs for hemoglobin of 6.7 Transfused for platelet count less than 10,000, unless symptomatic. No transfusion today, platelets 100,000. Irradiated blood products only Current Visit: Yes Status: Acute Priority: High Code(s): D61.818 - OTHER PANCYTOPENIA SNOMED Code(s): 915105909
[2019-09-27] MEDS ORDERED: VANCOMYCIN IV PER PHARMACY 1 EACH MISC MISCELLANE PRN (17:46)
--- NOTE | 2019-09-27 17:46 | XR ---
EXAMINATION TYPE: XR chest 1V portable DATE OF EXAM: 09/27/2019 COMPARISON: NONE HISTORY: Fever TECHNIQUE: Single view FINDINGS: Heart is normal. Lungs are clear of consolidation. There is slight coarsening of interstiti al markings. There is no pleural effusion. There is left subclavian catheter with tip in the superior vena cava. Bony thorax appears intact. IMPRESSION: No active cardiopulmonary disease. Mild pulmonary fibrotic changes.
[2019-09-27] MEDS ORDERED: VANCOMYCIN 750 MG in SODIUM CHLORIDE 0.9% 250 ML IVPB ONE (18:30)
[2019-09-27] MEDS: PROMETHAZINE INJ 25 MG in SODIUM CHLORIDE 0.9% 50 ML IVPB PRN (18:33)
[2019-09-27] MEDS ORDERED: INSULIN REGULAR 100 UNIT/ML VIAL IV ONE ×2 (19:04→20:28)
[2019-09-27] MEDS ORDERED: DEXTROSE 50% SYRINGE 50 ML IVP STA ×2 (19:04→20:28)
[2019-09-27] MEDS ORDERED: CALCIUM GLUCONATE 1 GM in SODIUM CHLORIDE 0.9% 100 ML IVPB ONE (19:04)
[2019-09-27] MEDS ORDERED: SODIUM CHLORIDE 0.9% 1,000 ML IV ONE (19:08)
[2019-09-27 19:10] LABS: Albumin 3.8 g/dL (3.5-5.0); Calcium 7.7 mg/dL (8.4-10.2); Phosphorus 7.9 mg/dL (2.5-4.5); Total Bilirubin 0.4 mg/dL (0.2-1.3); Total Protein 7.2 g/dL (6.3-8.2); Uric Acid 5.9 mg/dL (3.7-7.4)
[2019-09-27] MEDS ORDERED: SODIUM POLYSTYRENE SULFONATE 15 GM/60 ML BOTTLE PO STA (19:10)
[2019-09-27 19:12] LABS: Anisocytosis Slight; Hypochromasia Slight; MCH 31.7 pg (25.0-35.0); MCHC 32.2 g/dL (31.0-37.0); MCV 98.5 fL (80.0-100.0); Macrocytosis Slight; Mean Platelet Volume 11.5; RBC 1.91 m/uL (3.80-5.40); RDW 16.5 % (11.5-15.5)
--- NOTE | 2019-09-27 19:15 | P.CONS ---
History of Present Illness - Reason for Consult Consult date: 09/27/19 Medical management Requesting physician: Keagan Escobar - Chief Complaint Medical management - History of Present Illness Patient is a 74-year-old female with PMH of hypertension, hypothyroidism and recent diagnosis of AML presents to [facility] for induction of chemotherapy. She was recently admitted from September 07 to September 13 for symptomatic anemia. Bone marrow biopsy was performed and she was diagnosed with AML. She is being admitted for induction with venetoclax and Decogen. [facility] physicians has been consulted for medical management of this patient. Patient was seen and examined. Patient reports some nausea and vomiting this morning, vomited her tuna sandwich and oral medication. She is currently receiving promethazine given by oncology service. She continues to complain of fatigue, similar to her previous admission. She denies any headache, lower extremity edema, fever or chills, cough, chest pain, shortness of breath, palpitations, changes in urination or bowel habits. No changes in appetite or weight. She denies any dizziness, numbness/weakness/tingling of the extremities. Her vital signs are stable. CBC shows hemoglobin of 6.1, platelet count of 82 with blast cells. CMP shows potassium of 6, BUN of 44 and creatinine of 1.94. Review of Systems Pertinent positives and negatives as discussed in HPI, a complete review of systems was performed and all other systems are negative. Past Medical History Past Medical History: Blood Disorder, Cancer, Hypertension, Renal Disease Additional Past Medical History / Comment(s): Anemia, Stage 4 kidney disease, AML- started inpt. chemo 09/27/19- History of Any Multi-Drug Resistant Organisms: None Reported Past Surgical History: Appendectomy, Hysterectomy Past Anesthesia/Blood Transfusion Reactions: No Reported Reaction Past Psychological History: No Psychological Hx Reported Smoking Status: Never smoker Past Alcohol Use History: None Reported Past Drug Use History: None Reported - Past Family History Father Family Medical History: Cancer Additional Family Medical History / Comment(s): esophageal cancer Mother Family Medical History: Hypertension Medications and Allergies Home Medications Medication Instructions Recorded Confirmed Type Allopurinol [Zyloprim] 100 mg PO DAILY 09/08/19 09/27/19 History Calcitriol [Rocaltrol] 0.25 mcg PO TU 09/08/19 09/27/19 History Folate 666 mcg PO DAILY 09/08/19 09/27/19 History Levothyroxine Sodium [Synthroid] 75 mcg PO DAILY 09/08/19 09/27/19 History Losartan Potassium [Cozaar] 25 mg PO DAILY 09/08/19 09/27/19 History NIFEdipine XL [Procardia XL] 30 mg PO DAILY 09/08/19 09/27/19 History Venetoclax [Venclexta] 100 mg PO DAILY 09/27/19 09/27/19 History Voriconazole [Vfend] 200 mg PO Q12HR 09/27/19 09/27/19 History Allergies Allergy/AdvReac Type Severity Reaction Status Date / Time No Known Allergies Allergy Verified 09/27/19 11:24 Physical Exam Vitals: Vital Signs Temp Pulse Resp BP Pulse Ox 09/27/19 18:37 99.6 F 09/27/19 17:41 100.8 F H 09/27/19 16:55 99.1 F 09/27/19 16:00 98.7 F 90 16 147/61 95 09/27/19 12:00 98.2 F 86 16 144/64 96 09/27/19 10:35 98.0 F 92 15 133/69 98 Intake and Output 09/27/19 09/27/19 09/27/19 06:59 14:59 22:59 Intake Total 240 1590 Output Total 650 Balance 240 940 Intake: Intake, IV Titration 900 Amount Sodium Chloride 0.9% 1, 900 000 ml @ 175 mls/hr IV . Q5H43M [facility] Rx#:[id number] Oral 240 690 Output: Urine 650 Other: Weight 45.767 kg General: [non toxic], [no distress], [appears at stated age] Derm: [warm], [dry] Head: [atraumatic], [normocephalic], [symmetric] Eyes: [EOMI], [no lid lag], [anicteric sclera] Mouth: [no lip lesion], [mucus membranes moist] Cardiovascular: [S1S2 reg], [systolic murmur], [positive posterior tibial pulse bilateral], Lungs: [CTA bilateral], [no rhonchi, no rales] , [no accessory muscle use] Abdominal: [soft], [ nontender to palpation], [no guarding], [no appreciable organomegaly] Ext: [no gross muscle atrophy], [no edema], [no contractures] Neuro: [ CN II-XI grossly intact], [no focal neuro deficits] Psych: [Alert], [oriented], [appropriate affect] Results CBC & Chem 7: 09/27/19 15:27 09/27/19 15:27 Labs: Abnormal Lab Results - Last 24 Hours (Table) 09/27/19 09/27/19 09/27/19 Range/Units 11:00 11:00 15:27 WBC 11.0 H (3.8-10.6) k/uL RBC 2.13 L 2.01 L (3.80-5.40) m/uL Hgb 6.7 L* D 6.1 L* (11.4-16.0) gm/dL Hct 21.0 L 19.5 L* (34.0-46.0) % RDW 16.6 H 16.7 H (11.5-15.5) % Plt Count 100 L 82 L (150-450) k/uL Blast Cells % 50 H* 44 H* % Neutrophils # (Manual) 1.10 L (1.3-7.7) k/uL Monocytes # (Manual) 1.32 H (0-1.0) k/uL Metamyelocytes # (Man) 0.11 H 0.14 H (0) k/uL Myelocytes # (Manual) 0.22 H 0.07 H (0) k/uL Promyelocytes # (Man) 0.07 H (0) k/uL Blast Cells # (Man) 5.50 H 3.12 H (0) k/uL Sodium 135 L (137-145) mmol/L Potassium 5.2 H (3.5-5.1) mmol/L Carbon Dioxide 21 L (22-30) mmol/L BUN 47 H (7-17) mg/dL Creatinine 1.89 H (0.52-1.04) mg/dL Glucose (74-99) mg/dL Crossmatch 09/27/19 09/27/19 Range/Units 15:27 15:27 WBC (3.8-10.6) k/uL RBC (3.80-5.40) m/uL Hgb (11.4-16.0) gm/dL Hct (34.0-46.0) % RDW (11.5-15.5) % Plt Count (150-450) k/uL Blast Cells % % Neutrophils # (Manual) (1.3-7.7) k/uL Monocytes # (Manual) (0-1.0) k/uL Metamyelocytes # (Man) (0) k/uL Myelocytes # (Manual) (0) k/uL Promyelocytes # (Man) (0) k/uL Blast Cells # (Man) (0) k/uL Sodium 135 L (137-145) mmol/L Potassium 6.0 H (3.5-5.1) mmol/L Carbon Dioxide (22-30) mmol/L BUN 44 H (7-17) mg/dL Creatinine 1.94 H (0.52-1.04) mg/dL Glucose 106 H (74-99) mg/dL Crossmatch See Detail Assessment and Plan Assessment: Severe anemia related to AML Hyperkalemia Acute kidney injury on probable chronic kidney disease Hypertension Hypothyroidism Her hemoglobin is 6.1. Likely related to AML. Plans: 2 units of PRBCs ordered. Potassium 6. Unknown etiology. Plans: 10 units of IV insulin with D50. Telemetry monitoring. EKG stat. Kayexalate 15g. Repeat potassium at 10:00. Hold losartan. BUN 44, creatinine 1.94. Likely related to dehydration and poor oral intake. Plans: Restart calcitriol. Continue normal saline at 175 mL per hour. Avoid nephrotoxins. Repeat BMP tomorrow morning. BP 147/61. Plans: Continue nifedipine. Monitor vitals, adjust medications as necessary. Plans: Resume Synthroid. DVT prophylaxis: [SCD boots due to anemia] Discussed with: [Patient] Anticipated discharge: [2-3 days] Anticipated discharge place: [Home] A total of [35] minutes was spent on the care of this complex patient more than 50% of the time was spent in counseling and care coordination. Patient names her daughter decision maker if she can't make decisions for herself. Patient would like to be full code.
[2019-09-27 19:23] LABS: HCT 18.8 % (34.0-46.0)
[2019-09-27 19:24] LABS: Platelet Count 92 k/uL (150-450)
[2019-09-27 19:28] LABS: Potassium 7.8 mmol/L (3.5-5.1)
[2019-09-27] MEDS: CEFEPIME 2 GM in SODIUM CHLORIDE 0.9% 100 ML IVPB SCH (20:15)
[2019-09-27 20:29] LABS: Band Neutrophils % 7 %; Metamyelocytes % 3 %; Myelocytes # (M) 0.05 k/uL (0); Myelocytes % 1 %; Neutrophils % (M) 10 %; Promyelocytes # (M) 0.05 k/uL (0); Promyelocytes % 1 %
[2019-09-27 20:30] LABS: Blast Cells # (M) 1.99 k/uL (0); Large Platelets Present; Lymphocytes # (M) 1.94 k/uL (1.0-4.8); Metamyelocytes # (M) 0.15 k/uL (0); Monocytes # (M) 0.15 k/uL (0-1.0); Nucleated Red Blood Cells 2 /100 WBC (0-0); Polychromasia Present; Total Cells Counted 200; WBC 5.1 k/uL (3.8-10.6)
[2019-09-27] MEDS ORDERED: VORICONAZOLE 200 MG TAB PO SCH (21:00)
[2019-09-27] MEDS: DEXTROSE 5% IN WATER 1,000 ML with SODIUM BICARB (1 MEQ/ML) 150 ML IV SCH (21:49)
[2019-09-27 23:37] LABS: Albumin 3.3 g/dL (3.5-5.0); Calcium 7.4 mg/dL (8.4-10.2); Magnesium 1.8 mg/dL (1.6-2.3); Phosphorus 7.5 mg/dL (2.5-4.5); Total Bilirubin 0.3 mg/dL (0.2-1.3); Total Protein 6.5 g/dL (6.3-8.2)
[2019-09-28 00:09] LABS: Anisocytosis Slight; Hypochromasia Slight; MCH 31.7 pg (25.0-35.0); MCHC 32.3 g/dL (31.0-37.0); MCV 98.1 fL (80.0-100.0); Macrocytosis Slight; Mean Platelet Volume 11.1; RBC 1.63 m/uL (3.80-5.40); RDW 16.7 % (11.5-15.5)
[2019-09-28 00:11] LABS: HGB 5.2 gm/dL (11.4-16.0)
[2019-09-28 00:12] LABS: Platelet Count 75 k/uL (150-450)
[2019-09-28 00:27] LABS: Potassium 6.9 mmol/L (3.5-5.1)
[2019-09-28] MEDS: SALT AND SODA MOUTHWASH 1,000 ML PO SCH ×7 (00:46→23:51)
[2019-09-28 00:50] LABS: Amorphous Sediment,Urine Rare /hpf; Appearance,Urine Clear (Clear); Bilirubin,Urine Negative (Negative); Blood,Urine Negative (Negative); Color,Urine Light Yellow; Glucose,Urine (UA) Negative (Negative); Hyaline Casts,Urine 1 /lpf (0-2); Ketones,Urine Negative (Negative); Leukocyte Esterase,Urine Negative (Negative); Mucus,Urine Rare /hpf; Nitrite,Urine Negative (Negative); PH, Urine 5.5 (5.0-8.0); Protein,Urine 1+ (Negative); Specific Gravity,Urine 1.008 (1.001-1.035); Squamous Epithelial Cell,Urine <1 /hpf (0-4); Urobilinogen,Urine <2.0 mg/dL (<2.0); WBC,Urine <1 /hpf (0-5)
[2019-09-28] MEDS ORDERED: INSULIN REGULAR 100 UNIT/ML VIAL IV ONE ×2 (01:04→12:00)
[2019-09-28] MEDS ORDERED: DEXTROSE 50% SYRINGE 50 ML IVP STA (01:04)
[2019-09-28] MEDS ORDERED: SODIUM CHLORIDE 0.9% 1,000 ML IV ONE (01:07)
[2019-09-28] MEDS: CEFEPIME 2 GM in SODIUM CHLORIDE 0.9% 100 ML IVPB SCH ×4 (01:15→23:50)
[2019-09-28 01:47] LABS: Band Neutrophils % 10 %; Blast Cells # (M) 1.59 k/uL (0); Lymphocytes # (M) 0.99 k/uL (1.0-4.8); Metamyelocytes # (M) 0.09 k/uL (0); Metamyelocytes % 2 %; Myelocytes # (M) 0.04 k/uL (0); Myelocytes % 1 %; Neutrophils % (M) 21 %; Nucleated Red Blood Cells 3 /100 WBC (0-0); Total Cells Counted 200; WBC 4.3 k/uL (3.8-10.6)
[2019-09-28 01:48] LABS: Polychromasia Present
[2019-09-28 01:49] LABS: Large Platelets Present
[2019-09-28] MEDS: LEVOTHYROXINE 75 MCG TAB PO SCH (05:51)
[2019-09-28] MEDS: DEXTROSE 5% IN WATER 1,000 ML with SODIUM BICARB (1 MEQ/ML) 150 ML IV SCH ×3 (05:51→17:40)
[2019-09-28 08:06] LABS: Anisocytosis Slight; MCH 31.2 pg (25.0-35.0); MCHC 32.7 g/dL (31.0-37.0); MCV 95.4 fL (80.0-100.0); Mean Platelet Volume 12.3; RDW 16.9 % (11.5-15.5); WBC 1.9 k/uL (3.8-10.6)
[2019-09-28 08:08] LABS: Albumin 2.8 g/dL (3.5-5.0); Calcium 6.7 mg/dL (8.4-10.2); Magnesium 1.9 mg/dL (1.6-2.3); Phosphorus 8.6 mg/dL (2.5-4.5); Total Bilirubin 0.4 mg/dL (0.2-1.3); Uric Acid 8.5 mg/dL (3.7-7.4)
[2019-09-28 08:13] LABS: Platelet Count 59 k/uL (150-450)
[2019-09-28 08:18] LABS: HGB 6.2 gm/dL (11.4-16.0)
[2019-09-28 08:29] LABS: Potassium 6.1 mmol/L (3.5-5.1)
[2019-09-28] MEDS: NIFEdipine XL 30 MG TAB.ER.24 PO SCH (08:58)
[2019-09-28] MEDS ORDERED: VENETOCLAX 100 MG PO SCH (09:00)
[2019-09-28] MEDS ORDERED: CALCIUM GLUCONATE 1 GM in SODIUM CHLORIDE 0.9% 100 ML IVPB ONE (09:00)
[2019-09-28] MEDS ORDERED: LOSARTAN 25 MG TAB PO SCH (09:00)
[2019-09-28] MEDS: FOLIC ACID 1 MG TAB PO SCH (09:02)
[2019-09-28] MEDS: allopurinoL 100 MG TAB PO SCH (09:03)
[2019-09-28 09:06] LABS: Band Neutrophils % 1 %; Blast Cells # (M) 0.23 k/uL (0); Lymphocytes # (M) 0.68 k/uL (1.0-4.8); Metamyelocytes # (M) 0.06 k/uL (0); Metamyelocytes % 3 %; Monocytes # (M) 0.13 k/uL (0-1.0); Myelocytes % 5 %; Neutrophils % (M) 38 %; Nucleated Red Blood Cells 0 /100 WBC (0-0); Total Cells Counted 200
[2019-09-28] MEDS ORDERED: RASBURICASE 6 MG in SODIUM CHLORIDE 0.9% 46 ML IV ONE (10:00)
[2019-09-28] MEDS ORDERED: INSULIN REGULAR 100 UNIT/ML VIAL SQ ONE (11:58)
[2019-09-28] MEDS ORDERED: VANCOMYCIN 750 MG in SODIUM CHLORIDE 0.9% 250 ML IVPB ONE (12:00)
[2019-09-28] MEDS: DEXTROSE 50% SYRINGE 50 ML IVP STA ×2 (12:07→12:13)
[2019-09-28] MEDS: VORICONAZOLE 200 MG PO SCH ×2 (12:14→20:53)
[2019-09-28] MEDS: VENCLEXTA 100 MG PO SCH (12:15)
[2019-09-28 12:16] LABS: Anisocytosis Slight; HCT 20.2 % (34.0-46.0); MCH 31.6 pg (25.0-35.0); MCHC 33.4 g/dL (31.0-37.0); MCV 94.6 fL (80.0-100.0); Mean Platelet Volume 11.9; RBC 2.14 m/uL (3.80-5.40); RDW 16.8 % (11.5-15.5)
[2019-09-28 12:21] LABS: Albumin 2.9 g/dL (3.5-5.0); Calcium 6.9 mg/dL (8.4-10.2); Magnesium 1.9 mg/dL (1.6-2.3); Phosphorus 8.6 mg/dL (2.5-4.5); Total Bilirubin 0.5 mg/dL (0.2-1.3); Uric Acid 7.4 mg/dL (3.7-7.4)
[2019-09-28 12:26] LABS: WBC 1.2 k/uL (3.8-10.6)
[2019-09-28 12:27] LABS: HGB 6.8 gm/dL (11.4-16.0)
[2019-09-28 12:40] LABS: Potassium 6.1 mmol/L (3.5-5.1)
[2019-09-28] MEDS: [UNRECOGNIZED DRUG - OTHER] IV SCH (13:25)
[2019-09-28] MEDS: SODIUM CHLORIDE 0.9% IV SCH (13:25)
[2019-09-28 14:58] LABS: Band Neutrophils % 2 %; Lymphocytes # (M) 0.59 k/uL (1.0-4.8); Monocytes # (M) 0.07 k/uL (0-1.0); Myelocytes # (M) 0.01 k/uL (0); Myelocytes % 1 %; Neutrophils % (M) 31 %
[2019-09-28 14:59] LABS: Blast Cells # (M) 0.16 k/uL (0); Nucleated Red Blood Cells 0 /100 WBC (0-0); Total Cells Counted 200
[2019-09-28 15:02] LABS: Hypochromasia (M) Present; Platelet Count 50 k/uL (150-450)
[2019-09-28 15:03] LABS: Polychromasia Present
--- NOTE | 2019-09-28 15:33 | CONS ---
CONSULTATION REASON FOR CONSULT: Renal failure and hyperkalemia. HISTORY OF PRESENT ILLNESS: Patient is a 74-year-old female with history of chronic kidney disease NKF stage IV with previous creatinine around 1.6-1.7 mg/dL secondary to nephrosclerosis. The patient's creatinine, however, had been close to 2 on her last visit in May of 2019. She has been diagnosed with AML and received her 1st dose of chemotherapy yesterday. The patient had Dacogen and . She has a previous history of ITP as well. The patient was found to have a serum creatinine of about 1.9 mg/dL for the last 2 days and her potassium increased from 6.0-7.8 yesterday. Patient has been treated with insulin and D50. She was also mildly acidotic and has been started on bicarb drip. Her serum potassium this morning was 6.1. The patient has not had any constipation. She has had some loose bowel movements. She was on Cozaar which is now discontinued. The patient has good urine output. Blood pressure has been slightly on the lower side with systolic around 85-111 mmHg. PAST MEDICAL HISTORY: CKD stage 4 secondary to nephrosclerosis, recent diagnosis of AML, previous history of ITP, hypertension, CKD mineral bone disorder. PAST SURGICAL HISTORY: Appendectomy and hysterectomy. SOCIAL HISTORY: Negative for smoking, drug abuse or alcohol abuse. MEDICATIONS: Medications at home prior to admission included Zyloprim, Rocaltrol, Synthroid, Cozaar, Procardia, Venclexta and V-Phen was recently started. ALLERGIES: None. REVIEW OF SYSTEMS: As per HPI. Other systems negative. PHYSICAL EXAMINATION: Patient is comfortable, awake, alert, oriented x3, not in any acute distress. Blood pressure was 111/57 this morning, heart rate 91 per minute. She is afebrile. Examination of the heart S1, S2. Examination of the lungs, decreased breath sounds bilateral bases. No crackles or wheezing is heard. Abdomen is soft, nontender. Examination of lower extremities shows trace edema bilaterally. [employer] exam is grossly intact. LABS: Show hemoglobin 6.2, white cell count 1.9, platelet count 59,000, sodium 136, potassium 6.1, chloride 106, CO2 is 23, BUN 55, creatinine 1.86. UA shows 1+ protein, otherwise fairly negative. ASSESSMENT: 1. Chronic kidney disease stage 4 secondary to nephrosclerosis with mild proteinuria. Renal function is stable and at baseline. 2. Hyperkalemia associated with tumor lysis syndrome status post treatment with insulin and D50 and also being treated for metabolic acidosis with IV bicarb which should help with the hyperkalemia as well. I will continue with the bicarb drip and repeat the insulin and D50 cocktail along with the calcium gluconate which was already given this morning. The patient has good urine output. I will check a postvoid residual to rule out any underlying urine retention and repeat serum potassium this evening. 3. Acute myeloid leukemia, status post chemotherapy yesterday. 4. Pancytopenia, multifactorial. 5. Chronic kidney disease mineral bone disorder maintained on calcitriol. Continue current dose. 6. Hypothyroidism. 7. History of hypertension currently controlled. PLAN: Continue off angiotensin receptor blockers. Repeat insulin and D50. Transfusion of packed RBCs as per Hematology. Check postvoid residual. May continue the antibiotics. Continue with the bicarb drip and repeat labs in a.m. and repeat potassium this evening. Thank you for this consultation. We will continue to follow the patient with you during her hospitalization. MMODL / IJN: [id number] /
--- NOTE | 2019-09-28 16:09 | P.PN ---
Subjective Progress Note Date: 09/28/19 Principal diagnosis: Hyperkalemia Patient was seen and examined. No acute events overnight. Potassium continues to be elevated, as high as 7.8 last night. She was given D50, Kayexalate and insulin. Serial EKGs ordered. Patient has no complaints. She denies any chest pain, shortness breath or palpitations. No nausea or vomiting. No fever or chills. Objective - Vital Signs Vital signs: Vital Signs Temp 98.2 F 09/28/19 15:39 Pulse 64 09/28/19 15:39 Resp 18 09/28/19 15:39 BP 112/67 09/28/19 15:39 Pulse Ox 93 L 09/28/19 12:00 Intake & Output 09/27/19 09/28/19 09/28/19 18:59 06:59 18:59 Intake Total 1830 2660 280 Output Total 650 678 Balance 1180 2660 -398 Weight 45.767 kg Intake: Intake, IV Titration 900 2350 Amount Cefepime 2 gm In Sodium 100 Chloride 0.9% 100 ml @ 200 mls/hr IVPB Q8HR [facility] Rx#:[id number] Dextrose 5% in Water 1, 1000 000 ml @ 175 mls/hr IV . Q6H35M [facility] with Sodium Bicarb (1 Meq/ml) 150 ml Rx#:[id number] Sodium Chloride 0.9% 1, 900 000 ml @ 175 mls/hr IV . Q5H43M [facility] Rx#:[id number] Sodium Chloride 0.9% 1, 1000 000 ml @ 999 mls/hr IV . Q1H1M ONE Rx#:[id number] Vancomycin 750 mg In 250 Sodium Chloride 0.9% 250 ml @ 125 mls/hr IVPB ONCE ONE Rx#:[id number] Oral 930 280 Blood Product 310 0 Rc Irr As1 Unit 0 [id number] Rc Irr As1 Unit 310 [id number] Output: Urine 650 600 Post Void Residual 78 Other: Voiding Method Toilet Toilet # Voids 3 - Exam General: [non toxic, appears pale], [no distress], [appears at stated age] Derm: [warm], [dry] Head: [atraumatic], [normocephalic], [symmetric] Eyes: [EOMI], [no lid lag], [anicteric sclera] Mouth: [no lip lesion], [mucus membranes moist] Cardiovascular: [S1S2 reg], [systolic murmur], [positive DP pulse bilateral], Lungs: [CTA bilateral], [no rhonchi, no rales] , [no accessory muscle use] Abdominal: [soft], [ nontender to palpation], [no guarding], [no appreciable organomegaly] Ext: [no gross muscle atrophy], [no edema], [no contractures] Neuro: [no focal neuro deficits] Psych: [Alert], [oriented], [appropriate affect] - Labs CBC & Chem 7: 09/28/19 11:48 09/28/19 11:48 Labs: Abnormal Lab Results - Last 24 Hours (Table) 09/27/19 09/27/19 09/27/19 Range/Units 15:27 15:27 18:27 WBC (3.8-10.6) k/uL RBC 1.91 L (3.80-5.40) m/uL Hgb 6.1 L* 6.0 L* (11.4-16.0) gm/dL Hct 18.8 L* (34.0-46.0) % RDW 16.5 H (11.5-15.5) % Plt Count 82 L 92 L (150-450) k/uL Blast Cells % 44 H* 39 H* % Neutrophils # (Manual) 1.10 L 0.80 L (1.3-7.7) k/uL Lymphocytes # (Manual) (1.0-4.8) k/uL Metamyelocytes # (Man) 0.14 H 0.15 H (0) k/uL Myelocytes # (Manual) 0.07 H 0.05 H (0) k/uL Promyelocytes # (Man) 0.07 H 0.05 H (0) k/uL Blast Cells # (Man) 3.12 H 1.99 H (0) k/uL Nucleated RBCs 2 H (0-0) /100 WBC Sodium (137-145) mmol/L Potassium (3.5-5.1) mmol/L Carbon Dioxide (22-30) mmol/L BUN (7-17) mg/dL Creatinine (0.52-1.04) mg/dL Glucose (74-99) mg/dL Uric Acid (3.7-7.4) mg/dL Calcium (8.4-10.2) mg/dL Phosphorus (2.5-4.5) mg/dL AST (14-36) U/L Total Protein (6.3-8.2) g/dL Albumin (3.5-5.0) g/dL Urine Protein (Negative) Amorphous Sediment (None) /hpf Urine Mucus (None) /hpf Crossmatch See Detail 09/27/19 09/27/19 09/27/19 Range/Units 18:27 23:05 23:05 WBC (3.8-10.6) k/uL RBC 1.63 L (3.80-5.40) m/uL Hgb 5.2 L* (11.4-16.0) gm/dL Hct 16.0 L* (34.0-46.0) % RDW 16.7 H (11.5-15.5) % Plt Count 75 L (150-450) k/uL Blast Cells % 37 H* % Neutrophils # (Manual) (1.3-7.7) k/uL Lymphocytes # (Manual) 0.99 L (1.0-4.8) k/uL Metamyelocytes # (Man) 0.09 H (0) k/uL Myelocytes # (Manual) 0.04 H (0) k/uL Promyelocytes # (Man) (0) k/uL Blast Cells # (Man) 1.59 H (0) k/uL Nucleated RBCs 3 H (0-0) /100 WBC Sodium 136 L 132 L (137-145) mmol/L Potassium 7.8 H* 6.9 H* (3.5-5.1) mmol/L Carbon Dioxide 17 L 19 L (22-30) mmol/L BUN 49 H 56 H (7-17) mg/dL Creatinine 1.97 H 1.90 H (0.52-1.04) mg/dL Glucose 103 H 102 H (74-99) mg/dL Uric Acid (3.7-7.4) mg/dL Calcium 7.7 L 7.4 L (8.4-10.2) mg/dL Phosphorus 7.9 H 7.5 H (2.5-4.5) mg/dL AST 110 H 101 H (14-36) U/L Total Protein (6.3-8.2) g/dL Albumin 3.3 L (3.5-5.0) g/dL Urine Protein (Negative) Amorphous Sediment (None) /hpf Urine Mucus (None) /hpf Crossmatch 09/28/19 09/28/19 09/28/19 Range/Units 00:15 06:34 06:34 WBC 1.9 L (3.8-10.6) k/uL RBC 2.00 L (3.80-5.40) m/uL Hgb 6.2 L* (11.4-16.0) gm/dL Hct 19.0 L* (34.0-46.0) % RDW 16.9 H (11.5-15.5) % Plt Count 59 L (150-450) k/uL Blast Cells % 12 H* % Neutrophils # (Manual) 0.70 L (1.3-7.7) k/uL Lymphocytes # (Manual) 0.68 L (1.0-4.8) k/uL Metamyelocytes # (Man) 0.06 H (0) k/uL Myelocytes # (Manual) 0.10 H (0) k/uL Promyelocytes # (Man) (0) k/uL Blast Cells # (Man) 0.23 H (0) k/uL Nucleated RBCs (0-0) /100 WBC Sodium 136 L (137-145) mmol/L Potassium 6.1 H* (3.5-5.1) mmol/L Carbon Dioxide (22-30) mmol/L BUN 55 H (7-17) mg/dL Creatinine 1.86 H (0.52-1.04) mg/dL Glucose (74-99) mg/dL Uric Acid 8.5 H (3.7-7.4) mg/dL Calcium 6.7 L (8.4-10.2) mg/dL Phosphorus 8.6 H (2.5-4.5) mg/dL AST 99 H (14-36) U/L Total Protein 6.0 L (6.3-8.2) g/dL Albumin 2.8 L (3.5-5.0) g/dL Urine Protein 1+ H (Negative) Amorphous Sediment Rare H (None) /hpf Urine Mucus Rare H (None) /hpf Crossmatch 09/28/19 09/28/19 Range/Units 11:48 11:48 WBC 1.2 L* (3.8-10.6) k/uL RBC 2.14 L (3.80-5.40) m/uL Hgb 6.8 L* (11.4-16.0) gm/dL Hct 20.2 L (34.0-46.0) % RDW 16.8 H (11.5-15.5) % Plt Count 50 L (150-450) k/uL Blast Cells % 13 H* % Neutrophils # (Manual) 0.30 L* (1.3-7.7) k/uL Lymphocytes # (Manual) 0.59 L (1.0-4.8) k/uL Metamyelocytes # (Man) (0) k/uL Myelocytes # (Manual) 0.01 H (0) k/uL Promyelocytes # (Man) (0) k/uL Blast Cells # (Man) 0.16 H (0) k/uL Nucleated RBCs (0-0) /100 WBC Sodium 136 L (137-145) mmol/L Potassium 6.1 H* (3.5-5.1) mmol/L Carbon Dioxide (22-30) mmol/L BUN 56 H (7-17) mg/dL Creatinine 1.97 H (0.52-1.04) mg/dL Glucose (74-99) mg/dL Uric Acid (3.7-7.4) mg/dL Calcium 6.9 L (8.4-10.2) mg/dL Phosphorus 8.6 H (2.5-4.5) mg/dL AST 96 H (14-36) U/L Total Protein 6.0 L (6.3-8.2) g/dL Albumin 2.9 L (3.5-5.0) g/dL Urine Protein (Negative) Amorphous Sediment (None) /hpf Urine Mucus (None) /hpf Crossmatch Assessment and Plan Assessment: Severe anemia with pancytopenia related to AML Hyperkalemia Acute kidney injury on probable chronic kidney disease Hypertension Hypothyroidism Her hemoglobin is 6.2. Likely related to AML. Plans: Has received 1 unit of PRBC so far. Additional unit ordered by oncology. Potassium 6.1. Unknown etiology, possible tumor lysis. Uric acid 8.5. Plans: Patient has received multiple units of insulin along with D50. She was given Kayexalate yesterday. She was given 1 g of calcium gluconate this morning. Nephrology on board, started on sodium bicarb drip. Serial EKGs every 4 hours. Telemetry monitoring. Plans to repeat potassium at 4 PM. Hold losartan. Rasburicase started by Oncology. BUN 55, creatinine 1.86. Likely related to dehydration and poor oral intake. Plans: Restart calcitriol. Continue IV hydration. Avoid nephrotoxins. Repeat BMP tomorrow morning. BP 121/67. Plans: Continue nifedipine. Monitor vitals, adjust medications as necessary. Plans: Resume Synthroid. DVT prophylaxis: [SCD boots due to anemia] Discussed with: [Patient] Anticipated discharge: [2-3 days] Anticipated discharge place: [Home] A total of [35] minutes was spent on the care of this complex patient more than 50% of the time was spent in counseling and care coordination. Patient names her daughter decision maker if she can't make decisions for herself. Patient would like to be full code.
[2019-09-28 16:21] LABS: Anisocytosis Slight; HCT 21.4 % (34.0-46.0); HGB 7.1 gm/dL (11.4-16.0); MCH 31.2 pg (25.0-35.0); MCV 94.4 fL (80.0-100.0); Mean Platelet Volume 11.8; RBC 2.27 m/uL (3.80-5.40); RDW 16.6 % (11.5-15.5)
[2019-09-28 16:26] LABS: WBC 1.2 k/uL (3.8-10.6)
[2019-09-28] MEDS: ACETAMINOPHEN TAB 325 MG TAB PO PRN (16:30)
[2019-09-28 17:33] LABS: Band Neutrophils % 1 %; Lymphocytes # (M) 0.56 k/uL (1.0-4.8); Monocytes # (M) 0.01 k/uL (0-1.0); Neutrophils % (M) 32 %
[2019-09-28 17:34] LABS: Metamyelocytes # (M) 0.02 k/uL (0); Metamyelocytes % 2 %; Nucleated Red Blood Cells 1 /100 WBC (0-0); Promyelocytes # (M) 0.01 k/uL (0); Promyelocytes % 1 %; Total Cells Counted 200
[2019-09-28 17:35] LABS: Hypochromasia (M) Present; Platelet Count 58 k/uL (150-450)
--- NOTE | 2019-09-28 18:29 | P.PN ---
Subjective Progress Note Date: 09/28/19 Principal diagnosis: AML, induction chemo In f/u today pt has not vomited, had diarrhea, she ate breakfast. She had a terrible 1st day of treatment but, a little better today, she is pretty tired. No fever, oral irritation, sore throat, cough, abd pain, dysuria. She is walkin g back and forth to the bathroom Objective - Vital Signs Vital signs: Vital Signs Temp 95.3 F L 09/28/19 16:25 Pulse 88 09/28/19 16:25 Resp 18 09/28/19 16:25 BP 121/67 09/28/19 16:25 Pulse Ox 94 L 09/28/19 16:25 Intake & Output 09/27/19 09/28/19 09/28/19 18:59 06:59 18:59 Intake Total 1830 2660 2380 Output Total 650 978 Balance 1180 2660 1402 Weight 45.767 kg Intake: Intake, IV Titration 900 2350 1550 Amount Calcium Gluconate 1 gm In 100 Sodium Chloride 0.9% 100 ml @ 100 mls/hr IVPB ONCE ONE Rx#:[id number] Cefepime 2 gm In Sodium 100 Chloride 0.9% 100 ml @ 200 mls/hr IVPB Q8HR [facility] Rx#:[id number] Dextrose 5% in Water 1, 1000 1400 000 ml @ 175 mls/hr IV . Q6H35M [facility] with Sodium Bicarb (1 Meq/ml) 150 ml Rx#:[id number] Promethazine Inj 25 mg In 50 Sodium Chloride 0.9% 50 ml @ 200 mls/hr IVPB Q6HR PRN Rx#:[id number] Sodium Chloride 0.9% 1, 900 000 ml @ 175 mls/hr IV . Q5H43M [facility] Rx#:[id number] Sodium Chloride 0.9% 1, 1000 000 ml @ 999 mls/hr IV . Q1H1M ONE Rx#:[id number] Vancomycin 750 mg In 250 Sodium Chloride 0.9% 250 ml @ 125 mls/hr IVPB ONCE ONE Rx#:[id number] Oral 930 520 Blood Product 310 310 Rc Irr As1 Unit 310 [id number] Rc Irr As1 Unit 310 [id number] Output: Urine 650 900 Post Void Residual 78 Other: Voiding Method Toilet Toilet # Voids 3 - Constitutional General appearance: Present: average body habitus, cooperative, no acute distress - EENT Eyes: Present: anicteric sclerae, EOMI ENT: Present: hearing grossly normal, normal oropharynx. Absent: hard of hearing, NA/AT, other, pharyngeal erythema, thrush, tonsillar exudates, tonsillar swelling - Respiratory Respiratory: bilateral: CTA - Cardiovascular Details: EKG shows BBB Rhythm: regular Heart sounds: normal: S1, S2 Abnormal Heart Sounds: Absent: systolic murmur, diastolic murmur, rub, S3 Gallop, S4 Gallop, click, other - Gastrointestinal General gastrointestinal: Present: normal bowel sounds, soft - Neurologic Neurologic: Present: CNII-XII intact - Musculoskeletal Musculoskeletal: Present: generalized weakness, strength equal bilaterally - Psychiatric Psychiatric: Present: A&O x's 3, appropriate affect, intact judgment & insight - Labs CBC & Chem 7: 09/28/19 15:55 09/28/19 15:52 Labs: Abnormal Lab Results - Last 24 Hours (Table) 09/27/19 09/27/19 09/27/19 Range/Units 15:27 18:27 18:27 WBC (3.8-10.6) k/uL RBC 1.91 L (3.80-5.40) m/uL Hgb 6.0 L* (11.4-16.0) gm/dL Hct 18.8 L* (34.0-46.0) % RDW 16.5 H (11.5-15.5) % Plt Count 92 L (150-450) k/uL Blast Cells % 39 H* % Neutrophils # (Manual) 0.80 L (1.3-7.7) k/uL Lymphocytes # (Manual) (1.0-4.8) k/uL Metamyelocytes # (Man) 0.15 H (0) k/uL Myelocytes # (Manual) 0.05 H (0) k/uL Promyelocytes # (Man) 0.05 H (0) k/uL Blast Cells # (Man) 1.99 H (0) k/uL Nucleated RBCs 2 H (0-0) /100 WBC Sodium 136 L (137-145) mmol/L Potassium 7.8 H* (3.5-5.1) mmol/L Carbon Dioxide 17 L (22-30) mmol/L BUN 49 H (7-17) mg/dL Creatinine 1.97 H (0.52-1.04) mg/dL Glucose 103 H (74-99) mg/dL Uric Acid (3.7-7.4) mg/dL Calcium 7.7 L (8.4-10.2) mg/dL Phosphorus 7.9 H (2.5-4.5) mg/dL AST 110 H (14-36) U/L Total Protein (6.3-8.2) g/dL Albumin (3.5-5.0) g/dL Urine Protein (Negative) Amorphous Sediment (None) /hpf Urine Mucus (None) /hpf Crossmatch See Detail 09/27/19 09/27/19 09/28/19 Range/Units 23:05 23:05 00:15 WBC (3.8-10.6) k/uL RBC 1.63 L (3.80-5.40) m/uL Hgb 5.2 L* (11.4-16.0) gm/dL Hct 16.0 L* (34.0-46.0) % RDW 16.7 H (11.5-15.5) % Plt Count 75 L (150-450) k/uL Blast Cells % 37 H* % Neutrophils # (Manual) (1.3-7.7) k/uL Lymphocytes # (Manual) 0.99 L (1.0-4.8) k/uL Metamyelocytes # (Man) 0.09 H (0) k/uL Myelocytes # (Manual) 0.04 H (0) k/uL Promyelocytes # (Man) (0) k/uL Blast Cells # (Man) 1.59 H (0) k/uL Nucleated RBCs 3 H (0-0) /100 WBC Sodium 132 L (137-145) mmol/L Potassium 6.9 H* (3.5-5.1) mmol/L Carbon Dioxide 19 L (22-30) mmol/L BUN 56 H (7-17) mg/dL Creatinine 1.90 H (0.52-1.04) mg/dL Glucose 102 H (74-99) mg/dL Uric Acid (3.7-7.4) mg/dL Calcium 7.4 L (8.4-10.2) mg/dL Phosphorus 7.5 H (2.5-4.5) mg/dL AST 101 H (14-36) U/L Total Protein (6.3-8.2) g/dL Albumin 3.3 L (3.5-5.0) g/dL Urine Protein 1+ H (Negative) Amorphous Sediment Rare H (None) /hpf Urine Mucus Rare H (None) /hpf Crossmatch 09/28/19 09/28/19 09/28/19 Range/Units 06:34 06:34 11:48 WBC 1.9 L 1.2 L* (3.8-10.6) k/uL RBC 2.00 L 2.14 L (3.80-5.40) m/uL Hgb 6.2 L* 6.8 L* (11.4-16.0) gm/dL Hct 19.0 L* 20.2 L (34.0-46.0) % RDW 16.9 H 16.8 H (11.5-15.5) % Plt Count 59 L 50 L (150-450) k/uL Blast Cells % 12 H* 13 H* % Neutrophils # (Manual) 0.70 L 0.30 L* (1.3-7.7) k/uL Lymphocytes # (Manual) 0.68 L 0.59 L (1.0-4.8) k/uL Metamyelocytes # (Man) 0.06 H (0) k/uL Myelocytes # (Manual) 0.10 H 0.01 H (0) k/uL Promyelocytes # (Man) (0) k/uL Blast Cells # (Man) 0.23 H 0.16 H (0) k/uL Nucleated RBCs (0-0) /100 WBC Sodium 136 L (137-145) mmol/L Potassium 6.1 H* (3.5-5.1) mmol/L Carbon Dioxide (22-30) mmol/L BUN 55 H (7-17) mg/dL Creatinine 1.86 H (0.52-1.04) mg/dL Glucose (74-99) mg/dL Uric Acid 8.5 H (3.7-7.4) mg/dL Calcium 6.7 L (8.4-10.2) mg/dL Phosphorus 8.6 H (2.5-4.5) mg/dL AST 99 H (14-36) U/L Total Protein 6.0 L (6.3-8.2) g/dL Albumin 2.8 L (3.5-5.0) g/dL Urine Protein (Negative) Amorphous Sediment (None) /hpf Urine Mucus (None) /hpf Crossmatch 09/28/19 09/28/19 09/28/19 Range/Units 11:48 15:52 15:55 WBC 1.2 L* (3.8-10.6) k/uL RBC 2.27 L (3.80-5.40) m/uL Hgb 7.1 L (11.4-16.0) gm/dL Hct 21.4 L (34.0-46.0) % RDW 16.6 H (11.5-15.5) % Plt Count 58 L (150-450) k/uL Blast Cells % 17 H* % Neutrophils # (Manual) 0.30 L* (1.3-7.7) k/uL Lymphocytes # (Manual) 0.56 L (1.0-4.8) k/uL Metamyelocytes # (Man) 0.02 H (0) k/uL Myelocytes # (Manual) (0) k/uL Promyelocytes # (Man) 0.01 H (0) k/uL Blast Cells # (Man) 0.20 H (0) k/uL Nucleated RBCs 1 H (0-0) /100 WBC Sodium 136 L (137-145) mmol/L Potassium 6.1 H* 5.6 H (3.5-5.1) mmol/L Carbon Dioxide (22-30) mmol/L BUN 56 H (7-17) mg/dL Creatinine 1.97 H (0.52-1.04) mg/dL Glucose (74-99) mg/dL Uric Acid (3.7-7.4) mg/dL Calcium 6.9 L (8.4-10.2) mg/dL Phosphorus 8.6 H (2.5-4.5) mg/dL AST 96 H (14-36) U/L Total Protein 6.0 L (6.3-8.2) g/dL Albumin 2.9 L (3.5-5.0) g/dL Urine Protein (Negative) Amorphous Sediment (None) /hpf Urine Mucus (None) /hpf Crossmatch - Imaging and Cardiology Chest x-ray: report reviewed Assessment and Plan (1) Acute myeloid leukemia Narrative/Plan: Admitted for induction treatment with oral venetoclax and IV Dacogen 5 days. Orders reviewed. Supportive medications ordered for side effects. Preventative medications ordered. Home meds reviewed and reconciled. DVT prophylaxis with SCDs while in bed and early/frequent ambulation Ambulation ordered. Frequent labs, monitoring for tumor lysis syndrome. Patient is on allopurinol. Elitec ordered today. Nephrology Rx for D50 and insulin for severe hyperkalemia [place] fluids both IV and oral. Strict I's and O's to avoid fluid overload. Bone marrow biopsy and aspirate in 21 days reevaluate effectiveness of treatment. Peripheral blast count down from 44 to 12! Current Visit: Yes Status: Acute Priority: High Code(s): C92.00 - ACUTE MYELOBLASTIC LEUKEMIA, NOT HAVING ACHIEVED REMISSION SNOMED Code(s): 61526444 (2) Pancytopenia Narrative/Plan: No [id number] is not confirmed AML remission Transfuse for hemoglobin less than 7 or symptomatic. 1 unit PRBCs for hemoglobin of 6.2 Transfused for platelet count less than 10,000, unless symptomatic. No transfusion today, platelets 59,000. Irradiated blood products only Current Visit: Yes Status: Acute Priority: High Code(s): D61.818 - OTHER PANCYTOPENIA SNOMED Code(s): 728597905 (3) Tumor lysis syndrome following antineoplastic drug therapy Narrative/Plan: Anticipated. Elitec ordered, cont allopurinol, fluids, labs in AM. Current Visit: Yes Status: Acute Priority: High Code(s): E88.3 - TUMOR LYSIS SYNDROME; T45.1X5A - ADVERSE EFFECT OF ANTINEOPLASTIC AND IMMUNOSUP DRUGS, INIT SNOMED Code(s): 130571906 Plan: Case discussed with IM. EKG reviewed with Dr. Escobar. Cont voriconazole Dr. Chavez consulted Nephrology for hyperkalemia and CARRIE. Appreciate IM and Neph following/consult Attests: I have seen and examined patient, performed H&P, developed impression and plan of care. Discussed with dictator, agree with documentation. Documented as a scribe.
[2019-09-28 20:40] LABS: Anisocytosis Slight; HCT 23.3 % (34.0-46.0); HGB 7.5 gm/dL (11.4-16.0); MCH 30.4 pg (25.0-35.0); MCHC 32.3 g/dL (31.0-37.0); MCV 94.1 fL (80.0-100.0); Mean Platelet Volume 11.4; RBC 2.48 m/uL (3.80-5.40)
[2019-09-28 20:50] LABS: WBC 0.8 k/uL (3.8-10.6)
[2019-09-28 21:29] LABS: Anisocytosis (M) Present; Platelet Count 49 k/uL (150-450); Polychromasia Present
[2019-09-28 21:30] LABS: Hypochromasia (M) Present
--- NOTE | 2019-09-28 23:32 | P.CONS ---
History of Present Illness - Reason for Consult Consult date: 09/28/19 AML and fever Requesting physician: Jessy Woodall - Chief Complaint Weakness and vomiting 1 day - History of Present Illness Patient is a 74-year-old female which has been recently diagnosed with acute myeloid leukemia patient has been electively admitted to the hospital on 09/27/2019 for induction chemotherapy, patient on admission Hospital was afebrile however later in the evening she did spike a fever 100.8, for the patient did have a chest x-ray that was negative for any pneumonia UA has been negative patient has been started on cefepime and vancomycin infectious disease was consulted for further management of fever in a patient with AML Patient has no fever after initial episode patient be complaining of weak and tired and no energy patient denies having any headache or URI symptoms denies having any chest pain or shortness of breath or cough denies any abdominal pain however did have an episode of vomiting no diarrhea though And no urinary sym ptoms of burning or frequency Review of Systems Positive point has been mentioned in the HPI rest of the systems are negative Past Medical History Past Medical History: Blood Disorder, Cancer, Hypertension, Renal Disease Additional Past Medical History / Comment(s): Anemia, Stage 4 kidney disease, AML- started inpt. chemo 09/27/19- History of Any Multi-Drug Resistant Organisms: None Reported Past Surgical History: Appendectomy, Hysterectomy Past Anesthesia/Blood Transfusion Reactions: No Reported Reaction Past Psychological History: No Psychological Hx Reported Smoking Status: Never smoker Past Alcohol Use History: None Reported Past Drug Use History: None Reported - Past Family History Father Family Medical History: Cancer Additional Family Medical History / Comment(s): esophageal cancer Mother Family Medical History: Hypertension Medications and Allergies Home Medications Medication Instructions Recorded Confirmed Type Allopurinol [Zyloprim] 100 mg PO DAILY 09/08/19 09/27/19 History Calcitriol [Rocaltrol] 0.25 mcg PO TU 09/08/19 09/27/19 History Folate 666 mcg PO DAILY 09/08/19 09/27/19 History Levothyroxine Sodium [Synthroid] 75 mcg PO DAILY 09/08/19 09/27/19 History Losartan Potassium [Cozaar] 25 mg PO DAILY 09/08/19 09/27/19 History NIFEdipine XL [Procardia XL] 30 mg PO DAILY 09/08/19 09/27/19 History Venetoclax [Venclexta] 100 mg PO DAILY 09/27/19 09/27/19 History Voriconazole [Vfend] 200 mg PO Q12HR 09/27/19 09/27/19 History Allergies Allergy/AdvReac Type Severity Reaction Status Date / Time No Known Allergies Allergy Verified 09/27/19 11:24 Physical Exam Vitals: Vital Signs Temp Pulse Pulse Resp BP BP Pulse Ox 09/28/19 08:33 92 L 09/28/19 07:50 98.8 F 91 16 111/57 90 L 09/28/19 05:34 85 96/52 90 L 09/28/19 04:00 99.4 F 92 16 100/52 93 L 09/28/19 02:33 95 09/28/19 02:32 98.1 F 88 18 97/49 95 09/28/19 00:41 98.3 F 98 18 92/45 92 L 09/28/19 00:11 98.0 F 95 18 94/49 94 L 09/28/19 00:02 98.2 F 92 16 94/47 92 L 09/28/19 00:01 98.2 F 92 16 94/47 92 L 09/27/19 23:40 98.2 F 93 16 85/35 93 L 09/27/19 20:00 99.1 F 110 H 16 91/52 95 09/27/19 18:37 99.6 F 09/27/19 17:41 100.8 F H 09/27/19 16:55 99.1 F 09/27/19 16:00 98.7 F 90 16 147/61 95 Intake and Output 09/27/19 09/28/19 09/28/19 22:59 06:59 14:59 Intake Total 1590 2660 120 Output Total 650 Balance 940 2660 120 Intake: Intake, IV Titration 900 2350 Amount Cefepime 2 gm In Sodium 100 Chloride 0.9% 100 ml @ 200 mls/hr IVPB Q8HR [facility] Rx#:[id number] Dextrose 5% in Water 1, 1000 000 ml @ 175 mls/hr IV . Q6H35M [facility] with Sodium Bicarb (1 Meq/ml) 150 ml Rx#:[id number] Sodium Chloride 0.9% 1, 900 000 ml @ 175 mls/hr IV . Q5H43M [facility] Rx#:[id number] Sodium Chloride 0.9% 1, 1000 000 ml @ 999 mls/hr IV . Q1H1M ONE Rx#:[id number] Vancomycin 750 mg In 250 Sodium Chloride 0.9% 250 ml @ 125 mls/hr IVPB ONCE ONE Rx#:[id number] Oral 690 120 Blood Product 310 Rc Irr As1 Unit 310 [id number] Output: Urine 650 Other: Voiding Method Toilet GENERAL DESCRIPTION: An elderly female lying in bed, no distress. No tachypnea or accessory muscle of respiration use. HEENT: Shows Pallor , no scleral icterus. Oral mucous membrane is dry. No pharyngeal erythema or thrush NECK: Trachea central, no thyromegaly. LUNGS: Unlabored breathing. Decreased breath sounds at the base. No wheeze or crackle. HEART: S1, S2, regular rate and rhythm. No loud murmur ABDOMEN: Soft, no tenderness , guarding or rigidity, no organomegaly EXTREMITIES: No edema of feet. SKIN: No rash, no masses palpable. NEUROLOGICAL: The patient is awake, alert, oriented x3, mood and affect normal. Results CBC & Chem 7: 09/28/19 20:21 09/28/19 20:21 Labs: Abnormal Lab Results - Last 24 Hours (Table) 09/27/19 09/27/19 09/27/19 Range/Units 11:00 15:27 15:27 WBC (3.8-10.6) k/uL RBC 2.01 L (3.80-5.40) m/uL Hgb 6.1 L* (11.4-16.0) gm/dL Hct 19.5 L* (34.0-46.0) % RDW 16.7 H (11.5-15.5) % Plt Count 82 L (150-450) k/uL Blast Cells % 50 H* 44 H* % Neutrophils # (Manual) 1.10 L (1.3-7.7) k/uL Lymphocytes # (Manual) (1.0-4.8) k/uL Monocytes # (Manual) 1.32 H (0-1.0) k/uL Metamyelocytes # (Man) 0.11 H 0.14 H (0) k/uL Myelocytes # (Manual) 0.22 H 0.07 H (0) k/uL Promyelocytes # (Man) 0.07 H (0) k/uL Blast Cells # (Man) 5.50 H 3.12 H (0) k/uL Nucleated RBCs (0-0) /100 WBC Sodium 135 L (137-145) mmol/L Potassium 6.0 H (3.5-5.1) mmol/L Carbon Dioxide (22-30) mmol/L BUN 44 H (7-17) mg/dL Creatinine 1.94 H (0.52-1.04) mg/dL Glucose 106 H (74-99) mg/dL Uric Acid (3.7-7.4) mg/dL Calcium (8.4-10.2) mg/dL Phosphorus (2.5-4.5) mg/dL AST (14-36) U/L Total Protein (6.3-8.2) g/dL Albumin (3.5-5.0) g/dL Urine Protein (Negative) Amorphous Sediment (None) /hpf Urine Mucus (None) /hpf Crossmatch 09/27/19 09/27/19 09/27/19 Range/Units 15:27 18:27 18:27 WBC (3.8-10.6) k/uL RBC 1.91 L (3.80-5.40) m/uL Hgb 6.0 L* (11.4-16.0) gm/dL Hct 18.8 L* (34.0-46.0) % RDW 16.5 H (11.5-15.5) % Plt Count 92 L (150-450) k/uL Blast Cells % 39 H* % Neutrophils # (Manual) 0.80 L (1.3-7.7) k/uL Lymphocytes # (Manual) (1.0-4.8) k/uL Monocytes # (Manual) (0-1.0) k/uL Metamyelocytes # (Man) 0.15 H (0) k/uL Myelocytes # (Manual) 0.05 H (0) k/uL Promyelocytes # (Man) 0.05 H (0) k/uL Blast Cells # (Man) 1.99 H (0) k/uL Nucleated RBCs 2 H (0-0) /100 WBC Sodium 136 L (137-145) mmol/L Potassium 7.8 H* (3.5-5.1) mmol/L Carbon Dioxide 17 L (22-30) mmol/L BUN 49 H (7-17) mg/dL Creatinine 1.97 H (0.52-1.04) mg/dL Glucose 103 H (74-99) mg/dL Uric Acid (3.7-7.4) mg/dL Calcium 7.7 L (8.4-10.2) mg/dL Phosphorus 7.9 H (2.5-4.5) mg/dL AST 110 H (14-36) U/L Total Protein (6.3-8.2) g/dL Albumin (3.5-5.0) g/dL Urine Protein (Negative) Amorphous Sediment (None) /hpf Urine Mucus (None) /hpf Crossmatch See Detail 09/27/19 09/27/19 09/28/19 Range/Units 23:05 23:05 00:15 WBC (3.8-10.6) k/uL RBC 1.63 L (3.80-5.40) m/uL Hgb 5.2 L* (11.4-16.0) gm/dL Hct 16.0 L* (34.0-46.0) % RDW 16.7 H (11.5-15.5) % Plt Count 75 L (150-450) k/uL Blast Cells % 37 H* % Neutrophils # (Manual) (1.3-7.7) k/uL Lymphocytes # (Manual) 0.99 L (1.0-4.8) k/uL Monocytes # (Manual) (0-1.0) k/uL Metamyelocytes # (Man) 0.09 H (0) k/uL Myelocytes # (Manual) 0.04 H (0) k/uL Promyelocytes # (Man) (0) k/uL Blast Cells # (Man) 1.59 H (0) k/uL Nucleated RBCs 3 H (0-0) /100 WBC Sodium 132 L (137-145) mmol/L Potassium 6.9 H* (3.5-5.1) mmol/L Carbon Dioxide 19 L (22-30) mmol/L BUN 56 H (7-17) mg/dL Creatinine 1.90 H (0.52-1.04) mg/dL Glucose 102 H (74-99) mg/dL Uric Acid (3.7-7.4) mg/dL Calcium 7.4 L (8.4-10.2) mg/dL Phosphorus 7.5 H (2.5-4.5) mg/dL AST 101 H (14-36) U/L Total Protein (6.3-8.2) g/dL Albumin 3.3 L (3.5-5.0) g/dL Urine Protein 1+ H (Negative) Amorphous Sediment Rare H (None) /hpf Urine Mucus Rare H (None) /hpf Crossmatch 09/28/19 09/28/19 Range/Units 06:34 06:34 WBC 1.9 L (3.8-10.6) k/uL RBC 2.00 L (3.80-5.40) m/uL Hgb 6.2 L* (11.4-16.0) gm/dL Hct 19.0 L* (34.0-46.0) % RDW 16.9 H (11.5-15.5) % Plt Count 59 L (150-450) k/uL Blast Cells % 12 H* % Neutrophils # (Manual) 0.70 L (1.3-7.7) k/uL Lymphocytes # (Manual) 0.68 L (1.0-4.8) k/uL Monocytes # (Manual) (0-1.0) k/uL Metamyelocytes # (Man) 0.06 H (0) k/uL Myelocytes # (Manual) 0.10 H (0) k/uL Promyelocytes # (Man) (0) k/uL Blast Cells # (Man) 0.23 H (0) k/uL Nucleated RBCs (0-0) /100 WBC Sodium 136 L (137-145) mmol/L Potassium 6.1 H* (3.5-5.1) mmol/L Carbon Dioxide (22-30) mmol/L BUN 55 H (7-17) mg/dL Creatinine 1.86 H (0.52-1.04) mg/dL Glucose (74-99) mg/dL Uric Acid 8.5 H (3.7-7.4) mg/dL Calcium 6.7 L (8.4-10.2) mg/dL Phosphorus 8.6 H (2.5-4.5) mg/dL AST 99 H (14-36) U/L Total Protein 6.0 L (6.3-8.2) g/dL Albumin 2.8 L (3.5-5.0) g/dL Urine Protein (Negative) Amorphous Sediment (None) /hpf Urine Mucus (None) /hpf Crossmatch Assessment and Plan Assessment: 1- patient with recent diagnosis of acute myeloid leukemia in this patient who has been admitted to the hospital electively for induction chemotherapy subsequently speculum difficult 100.8F this patient only symptom has been vomiting no significant abdominal pain or other GI symptoms initial workup so far has been negative including chest x-ray and negative UA with a question of possible fever related to her underlying hematological malignancy versus abdominal source (1) Febrile neutropenia Current Visit: Yes Status: Acute Code(s): D70.9 - NEUTROPENIA, UNSPECIFIED; R50.81 - FEVER PRESENTING WITH CONDITIONS CLASSIFIED ELSEWHERE SNOMED Code(s): 717113207 Plan: 1- we will check an ultrasound of the abdomen 2-cefepime 2 g every 8 hours and vancomycin to continue 3-gentle IV fluid We will follow on clinical condition and cultures to further adjust medication if needed Thank you for this consultation will follow this patient with you Time with Patient: Greater than 30
[2019-09-29] MEDS: DEXTROSE 5% IN WATER 1,000 ML with SODIUM BICARB (1 MEQ/ML) 150 ML IV SCH ×3 (00:15→14:13)
[2019-09-29] MEDS: SALT AND SODA MOUTHWASH 1,000 ML PO SCH ×5 (03:44→19:37)
[2019-09-29] MEDS: ACETAMINOPHEN TAB 325 MG TAB PO PRN ×2 (04:33→16:24)
[2019-09-29] MEDS: LEVOTHYROXINE 75 MCG TAB PO SCH (05:33)
[2019-09-29 07:01] LABS: HCT 21.9 % (34.0-46.0); HGB 7.4 gm/dL (11.4-16.0); MCH 31.7 pg (25.0-35.0); MCHC 33.8 g/dL (31.0-37.0); MCV 93.9 fL (80.0-100.0); Mean Platelet Volume 11.5; Platelet Count 35 k/uL (150-450); RBC 2.33 m/uL (3.80-5.40)
[2019-09-29 07:27] LABS: Albumin 2.7 g/dL (3.5-5.0); Magnesium 1.6 mg/dL (1.6-2.3); Phosphorus 7.6 mg/dL (2.5-4.5); Potassium 4.5 mmol/L (3.5-5.1); Total Bilirubin 1.2 mg/dL (0.2-1.3); Total Protein 5.7 g/dL (6.3-8.2); Uric Acid 5.2 mg/dL (3.7-7.4)
[2019-09-29 07:39] LABS: Calcium 6.3 mg/dL (8.4-10.2); WBC 0.5 k/uL (3.8-10.6)
[2019-09-29 08:26] LABS: Poikilocytosis (M) Present
[2019-09-29] MEDS ORDERED: CALCIUM GLUCONATE 2 GM in SODIUM CHLORIDE 0.9% 100 ML IVPB ONE (08:52)
[2019-09-29] MEDS: FOLIC ACID 1 MG TAB PO SCH (09:27)
[2019-09-29] MEDS: allopurinoL 100 MG TAB PO SCH (09:28)
[2019-09-29] MEDS: NIFEdipine XL 30 MG TAB.ER.24 PO SCH (09:28)
[2019-09-29] MEDS: VENCLEXTA 100 MG PO SCH (09:28)
[2019-09-29] MEDS: VORICONAZOLE 200 MG PO SCH ×2 (09:29→19:40)
--- NOTE | 2019-09-29 09:29 | XR ---
EXAMINATION TYPE: XR chest 1V portable DATE OF EXAM: 09/29/2019 HISTORY: Shortness of breath. COMPARISON: 09/27/2019 TECHNIQUE: Single view of the chest is submitted. FINDINGS: Demonstrated are scattered senescent parenchymal change. Basilar pleural effusions with underlying atelectasis. Infiltrates are difficult to exclude. Left-nano ed PICC line in place. The heart is stable. Hilar and mediastinal structures are within normal limits. Degenerative changes are seen of the dorsal spine. IMPRESSION: 1. Basilar pleural effusions with underlying atelectasis. Infiltrates are difficult to exclude. Left -sided PICC line in place.
[2019-09-29] MEDS: CEFEPIME 2 GM in SODIUM CHLORIDE 0.9% 100 ML IVPB SCH ×3 (09:36→23:28)
[2019-09-29] MEDS ORDERED: VANCOMYCIN 750 MG in SODIUM CHLORIDE 0.9% 250 ML IVPB ONE (10:00)
--- NOTE | 2019-09-29 10:11 | P.PN ---
Subjective Progress Note Date: 09/29/19 Principal diagnosis: AML, induction chemo In f/u today pt denies oral irritation, cough, vomiting, diarrhea, she ate some breakfast. Tired, no pain. She continues walking back and forth to the bathroom Objective - Vital Signs Vital signs: Vital Signs Temp 98.1 F 09/29/19 08:00 Pulse 101 H 09/29/19 08:00 Resp 18 09/29/19 08:00 BP 101/57 09/29/19 08:00 Pulse Ox 92 L 09/29/19 08:00 Intake & Output 09/28/19 09/29/19 09/29/19 18:59 06:59 18:59 Intake Total 2380 1600 712.5 Output Total 978 2000 500 Balance 1402 -400 212.5 Intake: Intake, IV Titration 1550 1400 712.5 Amount Calcium Gluconate 1 gm In 100 Sodium Chloride 0.9% 100 ml @ 100 mls/hr IVPB ONCE ONE Rx#:[id number] Cefepime 2 gm In Sodium 100 Chloride 0.9% 100 ml @ 200 mls/hr IVPB Q8HR [facility] Rx#:[id number] Dextrose 5% in Water 1, 1400 1400 612.5 000 ml @ 70 mls/hr IV . [id number] [facility] with Sodium Bicarb (1 Meq/ml) 150 ml Rx#:[id number] Promethazine Inj 25 mg In 50 Sodium Chloride 0.9% 50 ml @ 200 mls/hr IVPB Q6HR PRN Rx#:[id number] Oral 520 200 Blood Product 310 Rc Irr As1 Unit 310 [id number] Output: Urine 900 2000 500 Post Void Residual 78 Other: Voiding Method Toilet Toilet Toilet # Voids 3 - Constitutional General appearance: Present: average body habitus, cooperative, no acute distress - EENT Eyes: Present: anicteric sclerae, EOMI ENT: Present: normal oropharynx - Respiratory Respiratory: bilateral: CTA - Cardiovascular Rhythm: regular Heart sounds: normal: S1, S2 Abnormal Heart Sounds: Absent: systolic murmur, diastolic murmur, rub, S3 Gallop, S4 Gallop, click, other - Peripheral edema leg Peripheral Edema: bilateral: None - Gastrointestinal General gastrointestinal: Present: normal bowel sounds, soft - Integumentary Integumentary: Present: pale - Neurologic Neurologic: Present: CNII-XII intact - Musculoskeletal Musculoskeletal: Present: strength equal bilaterally - Psychiatric Psychiatric: Present: A&O x's 3, appropriate affect, intact judgment & insight - Labs CBC & Chem 7: 09/29/19 06:49 09/29/19 06:49 Labs: Abnormal Lab Results - Last 24 Hours (Table) 09/27/19 09/28/19 09/28/19 Range/Units 15:27 11:48 11:48 WBC 1.2 L* (3.8-10.6) k/uL RBC 2.14 L (3.80-5.40) m/uL Hgb 6.8 L* (11.4-16.0) gm/dL Hct 20.2 L (34.0-46.0) % RDW 16.8 H (11.5-15.5) % Plt Count 50 L (150-450) k/uL Blast Cells % 13 H* % Neutrophils # (Manual) 0.30 L* (1.3-7.7) k/uL Lymphocytes # (Manual) 0.59 L (1.0-4.8) k/uL Metamyelocytes # (Man) (0) k/uL Myelocytes # (Manual) 0.01 H (0) k/uL Promyelocytes # (Man) (0) k/uL Blast Cells # (Man) 0.16 H (0) k/uL Nucleated RBCs (0-0) /100 WBC Sodium 136 L (137-145) mmol/L Potassium 6.1 H* (3.5-5.1) mmol/L BUN 56 H (7-17) mg/dL Creatinine 1.97 H (0.52-1.04) mg/dL Glucose (74-99) mg/dL Calcium 6.9 L (8.4-10.2) mg/dL Phosphorus 8.6 H (2.5-4.5) mg/dL AST 96 H (14-36) U/L Total Protein 6.0 L (6.3-8.2) g/dL Albumin 2.9 L (3.5-5.0) g/dL Crossmatch See Detail 09/28/19 09/28/19 09/28/19 Range/Units 15:52 15:55 20:21 WBC 1.2 L* 0.8 L* (3.8-10.6) k/uL RBC 2.27 L 2.48 L (3.80-5.40) m/uL Hgb 7.1 L 7.5 L (11.4-16.0) gm/dL Hct 21.4 L 23.3 L (34.0-46.0) % RDW 16.6 H 16.0 H (11.5-15.5) % Plt Count 58 L 49 L (150-450) k/uL Blast Cells % 17 H* % Neutrophils # (Manual) 0.30 L* (1.3-7.7) k/uL Lymphocytes # (Manual) 0.56 L (1.0-4.8) k/uL Metamyelocytes # (Man) 0.02 H (0) k/uL Myelocytes # (Manual) (0) k/uL Promyelocytes # (Man) 0.01 H (0) k/uL Blast Cells # (Man) 0.20 H (0) k/uL Nucleated RBCs 1 H (0-0) /100 WBC Sodium (137-145) mmol/L Potassium 5.6 H (3.5-5.1) mmol/L BUN (7-17) mg/dL Creatinine (0.52-1.04) mg/dL Glucose (74-99) mg/dL Calcium (8.4-10.2) mg/dL Phosphorus (2.5-4.5) mg/dL AST (14-36) U/L Total Protein (6.3-8.2) g/dL Albumin (3.5-5.0) g/dL Crossmatch 09/28/19 09/29/19 09/29/19 Range/Units 20:21 06:49 06:49 WBC 0.5 L* (3.8-10.6) k/uL RBC 2.33 L (3.80-5.40) m/uL Hgb 7.4 L (11.4-16.0) gm/dL Hct 21.9 L (34.0-46.0) % RDW 16.0 H (11.5-15.5) % Plt Count 35 L (150-450) k/uL Blast Cells % % Neutrophils # (Manual) (1.3-7.7) k/uL Lymphocytes # (Manual) (1.0-4.8) k/uL Metamyelocytes # (Man) (0) k/uL Myelocytes # (Manual) (0) k/uL Promyelocytes # (Man) (0) k/uL Blast Cells # (Man) (0) k/uL Nucleated RBCs (0-0) /100 WBC Sodium 135 L (137-145) mmol/L Potassium 5.3 H (3.5-5.1) mmol/L BUN 56 H (7-17) mg/dL Creatinine 1.91 H (0.52-1.04) mg/dL Glucose 107 H (74-99) mg/dL Calcium 6.3 L* (8.4-10.2) mg/dL Phosphorus 7.6 H (2.5-4.5) mg/dL AST 69 H (14-36) U/L Total Protein 5.7 L (6.3-8.2) g/dL Albumin 2.7 L (3.5-5.0) g/dL Crossmatch Microbiology - Last 24 Hours (Table) 09/27/19 18:27 Blood Culture - Preliminary Blood No Growth after 24 hours Assessment and Plan (1) Acute myeloid leukemia Narrative/Plan: Admitted for induction treatment with oral venetoclax and IV Dacogen 5 days. Cont as ordered. Supportive medications ordered for side effects. Preventative medications ordered. DVT prophylaxis with SCDs while in bed and early/frequent ambulation Ambulation ordered. Frequent labs, monitoring for tumor lysis syndrome. Patient is on allopurinol. Elitec ordered yesterday with improved uric acid. Dr. Escobar discussed with Nephrology. Tx for hyperphosphatemia. [place] fluids both IV and oral. Strict I's and O's to avoid fluid overload. Bone marrow biopsy and aspirate 21 days after initiation of treatment to evaluate effectiveness of treatment. Current Visit: Yes Status: Acute Priority: High Code(s): C92.00 - ACUTE MYELOBLASTIC LEUKEMIA, NOT HAVING ACHIEVED REMISSION SNOMED Code(s): 49204488 (2) Pancytopenia Narrative/Plan: No G-[id number] is not confirmed AML remission Transfuse for hemoglobin less than 7 or symptomatic. Hgb 7.4, no transfusion to day Transfused for platelet count less than 10,000, unless symptomatic. No transfusion today, platelets 35,000. Irradiated blood products only Current Visit: Yes Status: Acute Priority: High Code(s): D61.818 - OTHER PANCYTOPENIA SNOMED Code(s): 198639974 (3) Tumor lysis syndrome following antineoplastic drug therapy Narrative/Plan: Anticipated. Elitec given, cont allopurinol, fluids. Labs improved/stable today. Cont labs daily. Current Visit: Yes Status: Acute Priority: High Code(s): E88.3 - TUMOR LYSIS SYNDROME; T45.1X5A - ADVERSE EFFECT OF ANTINEOPLASTIC AND IMMUNOSUP DRUGS, INIT SNOMED Code(s): 197271703 Plan: Attests: I have seen and examined patient, performed H&P, developed impression and plan of care. Discussed with dictator, agree with documentation. Documented as a scribe.
--- NOTE | 2019-09-29 10:15 | US ---
EXAMINATION TYPE: US abdomen comp/pelvis limited DATE OF EXAM: 09/29/2019 COMPARISON: NONE CLINICAL HISTORY: Fever and vomiting. Patient receiving chemotherapy for leukemia; hysterectomy EXAM MEASUREMENTS: Liver Length: 19.6 cm Gallbladder Wall: 0.3 cm CBD: 0.6 cm Spleen: 12.1 x 14.2 x 4.4 cm Right Kidney: 10.0 x 5.1 x 4.0 cm Left Kidney: 9.0 x 4.0 x 3.9cm cm Post Void Residual: not assessed on inpatient Pancreas: wnl Liver: no masses seen; prominent MPV = 13.3cm and color flow patency is hepatopetal Gallbladder: pericholecystic free fluid is seen; gallbladder size is wnl CBD: wnl and is at upper limits of normal Spleen: enlarged in one view Right Kidney: No hydronephrosis or masses seen; small amount of perirenal fluid is seen vs. small am ount of ascites at hepatorenal recess. Left Kidney: mid cortical complex cyst is seen = 1.4 x 1.7 x 1.0cm; small amount of perirenal fluid is seen Upper IVC: wnl Abd Aorta: upper seen near liver and size is wnl; mid and distal is gassed out Bladder: well distended for pelvic US Limited Pelvis US with hysterectomy: vaginal cuff noted; ovaries not seen; small amount of free flui d is seen in cul de sac = 1.4 x 1.8 x 2.0cm. IMPRESSION: 1. Splenomegaly. 2. Ascites. 3. Hysterectomy changes. Ovaries not visualized.
[2019-09-29] MEDS: SODIUM CHLORIDE 0.9% 1,000 ML IV SCH (10:22)
[2019-09-29] MEDS ORDERED: SODIUM CHLORIDE 0.9% 1,000 ML IV SCH (12:45)
[2019-09-29] MEDS: CALCIUM ACETATE 667 MG TAB PO SCH ×2 (14:10→17:13)
--- NOTE | 2019-09-29 14:13 | PN ---
PROGRESS NOTE Patient is seen for followup for acute kidney injury, hyperkalemia. She also has chronic kidney disease. Renal function has been fairly stable. Her potassium is improved. Patient is maintained on bicarb drip. She was treated with chemotherapy for AML and had tumor lysis. On examination today, patient is comfortable. Blood pressure is 122/58, heart rate 91 per minute. She is afebrile. She did have a temp of 100.1 earlier this morning. Examination of the heart S1, S2. Examination of the lungs, bilateral breath sounds are heard. Abdomen is soft, nontender. Examination of lower extremities shows no significant edema. CLAY CASTER exam grossly intact. LABS: Show sodium 135, potassium 4.5, chloride 100, CO2 is 29, BUN 56, creatinine 1.9, calcium was 6.3, hemoglobin 7.4 g/dL. ASSESSMENT: 1. Chronic kidney disease stage 4 renal function at baseline, etiology is nephrosclerosis. 2. Hyperkalemia associated with tumor lysis syndrome in the setting of chronic kidney disease currently improved. Patient is maintained on bicarb drip. 3. Acute myeloid leukemia status post chemotherapy. 4. Chronic kidney disease mineral bone disorder maintained on calcitriol. 5. Pancytopenia, multifactorial. 6. Metabolic acidosis currently improved. PLAN: DC bicarb drip. Add PhosLo for hyperphosphatemia and decrease IV fluids to about 70 mL an hour. Repeat labs in a.m. and avoid nephrotoxic agents. MMODL / IJN: [id number] /
[2019-09-29] MEDS: [UNRECOGNIZED DRUG - OTHER] IV SCH (14:43)
[2019-09-29] MEDS: SODIUM CHLORIDE 0.9% IV SCH (14:43)
[2019-09-29] MEDS ORDERED: FUROSEMIDE 10 MG/ML 4 ML VIAL IV STA (16:39)
--- NOTE | 2019-09-29 16:42 | P.PN ---
Subjective Progress Note Date: 09/29/19 Principal diagnosis: Hyperkalemia Patient was seen and examined. No acute events overnight. Hemoglobin improved to 7.4 this morning. Potassium within normal limits this morning. Patient has no complaints except some mild shortness of breath. She denies any chest pain, or palpitations. No nausea or vomiting. No fever or chills. Objective - Vital Signs Vital signs: Vital Signs Temp 98.0 F 09/29/19 16:00 Pulse 64 09/29/19 16:00 Resp 16 09/29/19 16:00 BP 113/61 09/29/19 16:00 Pulse Ox 91 L 09/29/19 16:00 Intake & Output 09/28/19 09/29/19 09/29/19 18:59 06:59 18:59 Intake Total 2380 1600 2762.5 Output Total 978 2000 1350 Balance 1402 -400 1412.5 Intake: Intake, IV Titration 1550 1400 1562.5 Amount Calcium Gluconate 1 gm In 100 Sodium Chloride 0.9% 100 ml @ 100 mls/hr IVPB ONCE ONE Rx#:[id number] Calcium Gluconate 2 gm In 100 Sodium Chloride 0.9% 100 ml @ 60 mls/hr IVPB ONCE ONE Rx#:[id number] Cefepime 2 gm In Sodium 100 Chloride 0.9% 100 ml @ 200 mls/hr IVPB Q8HR [facility] Rx#:[id number] Dextrose 5% in Water 1, 1400 1400 912.5 000 ml @ 70 mls/hr IV . [id number] [facility] with Sodium Bicarb (1 Meq/ml) 150 ml Rx#:[id number] Promethazine Inj 25 mg In 50 Sodium Chloride 0.9% 50 ml @ 200 mls/hr IVPB Q6HR PRN Rx#:[id number] Sodium Chloride 0.9% 1, 200 000 ml @ 50 mls/hr IV . Q20H [facility] Rx#:[id number] Vancomycin 750 mg In 250 Sodium Chloride 0.9% 250 ml @ 125 mls/hr IVPB ONCE ONE Rx#:[id number] Oral 163 934 9937 Blood Product 310 Rc Irr As1 Unit 310 [id number] Output: Urine 900 2000 1350 Post Void Residual 78 Other: Voiding Method Toilet Toilet Toilet # Voids 3 1 - Exam General: [non toxic, appears pale], [no distress], [appears at stated age] Derm: [warm], [dry] Head: [atraumatic], [normocephalic], [symmetric] Eyes: [EOMI], [no lid lag], [anicteric sclera] Mouth: [no lip lesion], [mucus membranes moist] Cardiovascular: [S1S2 reg], [systolic murmur], [positive DP pulse bilateral], Lungs: [Decreased breath sounds bilateral], [no rhonchi, no rales] , [no accessory muscle use] Abdominal: [soft], [ nontender to palpation], [no guarding], [no appreciable organomegaly] Ext: [no gross muscle atrophy], [no edema], [no contractures] Neuro: [no focal neuro deficits] Psych: [Alert], [oriented], [appropriate affect] - Labs CBC & Chem 7: 09/29/19 06:49 09/29/19 06:49 Labs: Abnormal Lab Results - Last 24 Hours (Table) 09/27/19 09/28/19 09/28/19 Range/Units 15:27 15:55 20:21 WBC 1.2 L* 0.8 L* (3.8-10.6) k/uL RBC 2.48 L (3.80-5.40) m/uL Hgb 7.5 L (11.4-16.0) gm/dL Hct 23.3 L (34.0-46.0) % RDW 16.0 H (11.5-15.5) % Plt Count 58 L 49 L (150-450) k/uL Blast Cells % 17 H* % Neutrophils # (Manual) 0.30 L* (1.3-7.7) k/uL Lymphocytes # (Manual) 0.56 L (1.0-4.8) k/uL Metamyelocytes # (Man) 0.02 H (0) k/uL Promyelocytes # (Man) 0.01 H (0) k/uL Blast Cells # (Man) 0.20 H (0) k/uL Nucleated RBCs 1 H (0-0) /100 WBC Sodium (137-145) mmol/L Potassium (3.5-5.1) mmol/L BUN (7-17) mg/dL Creatinine (0.52-1.04) mg/dL Glucose (74-99) mg/dL Calcium (8.4-10.2) mg/dL Phosphorus (2.5-4.5) mg/dL AST (14-36) U/L Total Protein (6.3-8.2) g/dL Albumin (3.5-5.0) g/dL Crossmatch See Detail 09/28/19 09/29/19 09/29/19 Range/Units 20:21 06:49 06:49 WBC 0.5 L* (3.8-10.6) k/uL RBC 2.33 L (3.80-5.40) m/uL Hgb 7.4 L (11.4-16.0) gm/dL Hct 21.9 L (34.0-46.0) % RDW 16.0 H (11.5-15.5) % Plt Count 35 L (150-450) k/uL Blast Cells % % Neutrophils # (Manual) (1.3-7.7) k/uL Lymphocytes # (Manual) (1.0-4.8) k/uL Metamyelocytes # (Man) (0) k/uL Promyelocytes # (Man) (0) k/uL Blast Cells # (Man) (0) k/uL Nucleated RBCs (0-0) /100 WBC Sodium 135 L (137-145) mmol/L Potassium 5.3 H (3.5-5.1) mmol/L BUN 56 H (7-17) mg/dL Creatinine 1.91 H (0.52-1.04) mg/dL Glucose 107 H (74-99) mg/dL Calcium 6.3 L* (8.4-10.2) mg/dL Phosphorus 7.6 H (2.5-4.5) mg/dL AST 69 H (14-36) U/L Total Protein 5.7 L (6.3-8.2) g/dL Albumin 2.7 L (3.5-5.0) g/dL Crossmatch Microbiology - Last 24 Hours (Table) 09/27/19 18:27 Blood Culture - Preliminary Blood No Growth after 24 hours Assessment and Plan Assessment: Acute hypoxic respiratory failure from volume overload Hypocalcemia Severe anemia with pancytopenia related to AML Acute kidney injury on probable chronic kidney disease Hypertension Hypothyroidism Resolved: Hyperkalemia Chest x-ray showing bilateral pleural effusions. Patient has received 2 units of PRBCs during this admission. She has also been aggressively hydrated. Will DC IVF and give 1 dose of Lasix 40 mg IV. Her corrected calcium is 7.3. She received 2 g of calcium gluconate today. Repeat CMP tomorrow morning. Her hemoglobin is 7.4. Likely related to AML. Plans: Has received 2 units PRBC so far. Repeat CBC tomorrow morning. BUN 56, creatinine 1.91. Likely related to dehydration and poor oral intake. Plans: Restart calcitriol. Avoid nephrotoxins. Repeat BMP tomorrow morning. BP 113/61. Plans: Continue nifedipine. Monitor vitals, adjust medications as necessary. Plans: Resume Synthroid. DVT prophylaxis: [SCD boots due to anemia] Discussed with: [Patient] Anticipated discharge: [2-3 days] Anticipated discharge place: [Home] A total of [35] minutes was spent on the care of this complex patient more than 50% of the time was spent in counseling and care coordination. Patient names her daughter decision maker if she can't make decisions for hersel f. Patient would like to be full code.
[2019-09-29] MEDS: MORPHINE SULFATE 4 MG/ML SYRINGE IVP PRN (20:16)
--- NOTE | 2019-09-29 23:21 | PN ---
PROGRESS NOTE DATE OF SERVICE: 09/29/2019 REASON FOR FOLLOWUP: Febrile neutropenia. INTERVAL HISTORY: The patient did have a low-grade fever of 100.1 early this morning. The patient is afebrile since then. Overall the patient says she is feeling better, breathing comfortably. Denies having any chest pain or shortness of breath or cough. No abdominal pain and no further vomiting has been reported. PHYSICAL EXAMINATION: Blood pressure 102/57 with a pulse of 91, temperature 97.4. She is 92% on 5 L nasal cannula. General description is an elderly female up in the bed in no distress. RESPIRATORY SYSTEM: Unlabored breathing. Clear to auscultation anteriorly. HEART: S1, S2. Regular rate and rhythm. ABDOMEN: Soft. No tenderness. LABS: Hemoglobin 7.4, white count 0.5, BUN of 56, creatinine 1.91. Blood culture has been negative so far. Abdominal ultrasound shows splenomegaly and ascites; no other acute changes. Chest x-ray repeat with bilateral effusion. Infiltrates difficult to exclude. DIAGNOSTIC IMPRESSION AND PLAN: Patient with febrile neutropenia in this patient admitted to hospital for induction chemotherapy without any localizing symptoms of infection. The patient is currently covered with cefepime; to continue and will monitor her clinical course and cultures closely. Continue with supportive care. MMODL / IJN: [id number] /
[2019-09-30] MEDS: SALT AND SODA MOUTHWASH 1,000 ML PO SCH ×7 (01:07→23:37)
[2019-09-30] MEDS: LEVOTHYROXINE 75 MCG TAB PO SCH (05:00)
[2019-09-30] MEDS: CEFEPIME 2 GM in SODIUM CHLORIDE 0.9% 100 ML IVPB SCH ×3 (07:52→23:37)
[2019-09-30] MEDS: allopurinoL 100 MG TAB PO SCH (07:53)
[2019-09-30] MEDS: CALCIUM ACETATE 667 MG TAB PO SCH ×3 (07:53→17:56)
[2019-09-30] MEDS: FOLIC ACID 1 MG TAB PO SCH (07:53)
[2019-09-30] MEDS: NIFEdipine XL 30 MG TAB.ER.24 PO SCH (07:54)
[2019-09-30] MEDS: PROMETHAZINE INJ 25 MG in SODIUM CHLORIDE 0.9% 50 ML IVPB PRN (08:44)
[2019-09-30 08:49] LABS: HCT 25.8 % (34.0-46.0); HGB 8.1 gm/dL (11.4-16.0); MCHC 31.5 g/dL (31.0-37.0); Mean Platelet Volume 11.9; RBC 2.71 m/uL (3.80-5.40); RDW 15.8 % (11.5-15.5)
[2019-09-30 08:56] LABS: Platelet Count 28 k/uL (150-450); WBC 0.5 k/uL (3.8-10.6)
[2019-09-30 09:00] LABS: Albumin 3.1 g/dL (3.5-5.0); Calcium 7.4 mg/dL (8.4-10.2); Magnesium 1.5 mg/dL (1.6-2.3); Potassium 4.4 mmol/L (3.5-5.1); Total Bilirubin 1.4 mg/dL (0.2-1.3); Total Protein 6.5 g/dL (6.3-8.2); Uric Acid 3.4 mg/dL (3.7-7.4)
[2019-09-30 09:05] LABS: Vancomycin,Random 12.2 ug/mL
[2019-09-30] MEDS ORDERED: FUROSEMIDE 10 MG/ML 4 ML VIAL IV STA (10:01)
[2019-09-30] MEDS: VORICONAZOLE 200 MG PO SCH ×2 (10:30→20:28)
[2019-09-30] MEDS: VENCLEXTA 100 MG PO SCH (10:30)
[2019-09-30] MEDS ORDERED: LORazepam 2 MG/ML INJ IV PRN (10:35)
--- NOTE | 2019-09-30 10:58 | P.PN ---
Subjective Progress Note Date: 09/30/19 Principal diagnosis: AML, induction chemo In f/u pt vomited after breakfast, denied nausea prior, appetite is fair, no fever, oral irritation, mild generalized abd discomfort, her back is aching, LUE swelling since yesterday, no diarrhea, dysuria, bleeding Objective - Vital Signs Vital signs: Vital Signs Temp 98.0 F 09/30/19 05:00 Pulse 89 09/30/19 05:00 Resp 20 09/30/19 05:00 BP 113/57 09/30/19 05:00 Pulse Ox 92 L 09/30/19 05:00 Intake & Output 09/29/19 09/30/19 09/30/19 18:59 06:59 18:59 Intake Total 2762.5 300 100 Output Total 1350 2750 450 Balance 1412.5 -2450 -350 Intake: Intake, IV Titration 1562.5 100 Amount Calcium Gluconate 2 gm In 100 Sodium Chloride 0.9% 100 ml @ 60 mls/hr IVPB ONCE ONE Rx#:[id number] Cefepime 2 gm In Sodium 100 100 Chloride 0.9% 100 ml @ 200 mls/hr IVPB Q8HR [facility] Rx#:[id number] Dextrose 5% in Water 1, 912.5 000 ml @ 70 mls/hr IV . [id number] [facility] with Sodium Bicarb (1 Meq/ml) 150 ml Rx#:[id number] Sodium Chloride 0.9% 1, 200 000 ml @ 50 mls/hr IV . Q20H [facility] Rx#:[id number] Vancomycin 750 mg In 250 Sodium Chloride 0.9% 250 ml @ 125 mls/hr IVPB ONCE ONE Rx#:[id number] Oral 1200 300 Output: Urine 1350 2750 450 Other: Voiding Method Toilet Toilet # Voids 1 3 - Constitutional General appearance: Present: average body habitus, cooperative, no acute distress - EENT Eyes: Present: anicteric sclerae, EOMI ENT: Present: hearing grossly normal, normal oropharynx - Respiratory Respiratory: bilateral: CTA - Cardiovascular Heart sounds: normal: S1, S2 - Peripheral edema leg Peripheral Edema Comment(s): LUE swelling Peripheral Edema: bilateral: None - Gastrointestinal General gastrointestinal: Present: normal bowel sounds, soft. Absent: absent bowel sounds, decreased bowel sounds, distended, hepatomegaly, hyperactive bowel sounds, organomegaly, rigid, scaphoid, splenomegaly, tenderness, umbilical hernia, ventral hernia - Integumentary Integumentary: Present: normal, pale - Neurologic Neurologic: Present: CNII-XII intact - Musculoskeletal Musculoskeletal: Present: generalized weakness, strength equal bilaterally - Psychiatric Psychiatric: Present: A&O x's 3, appropriate affect, intact judgment & insight - Labs CBC & Chem 7: 09/30/19 08:20 09/30/19 08:20 Labs: Abnormal Lab Results - Last 24 Hours (Table) 09/27/19 09/30/19 09/30/19 Range/Units 15:27 08:20 08:20 WBC 0.5 L* (3.8-10.6) k/uL RBC 2.71 L (3.80-5.40) m/uL Hgb 8.1 L (11.4-16.0) gm/dL Hct 25.8 L (34.0-46.0) % RDW 15.8 H (11.5-15.5) % Plt Count 28 L (150-450) k/uL Sodium 131 L (137-145) mmol/L Chloride 96 L (98-107) mmol/L BUN 48 H (7-17) mg/dL Creatinine 1.98 H (0.52-1.04) mg/dL Glucose 118 H (74-99) mg/dL Uric Acid 3.4 L (3.7-7.4) mg/dL Calcium 7.4 L (8.4-10.2) mg/dL Phosphorus 6.0 H (2.5-4.5) mg/dL Magnesium 1.5 L (1.6-2.3) mg/dL Total Bilirubin 1.4 H (0.2-1.3) mg/dL AST 55 H (14-36) U/L Albumin 3.1 L (3.5-5.0) g/dL Crossmatch See Detail Microbiology - Last 24 Hours (Table) 09/27/19 18:27 Blood Culture - Preliminary Blood No Growth after 48 hours Assessment and Plan (1) Acute myeloid leukemia Narrative/Plan: Admitted for induction treatment with oral venetoclax and IV Dacogen 5 days. Cont as ordered, dacogen to complete today. Supportive medications ordered for side effects. Preventative medications ordered. DVT prophylaxis with SCDs while in bed and early/frequent ambulation Ambulation ordered. Frequent labs, monitoring for tumor lysis syndrome. She did have TLS, treated, labs stable [place] fluids both IV and oral. Strict I's and O's to avoid fluid overload. Bone marrow biopsy and aspirate 21 days after initiation of treatment to evaluate effectiveness of treatment. Current Visit: Yes Status: Acute Priority: High Code(s): C92.00 - ACUTE MYELOBLASTIC LEUKEMIA, NOT HAVING ACHIEVED REMISSION SNOMED Code(s): 36424267 (2) Pancytopenia Narrative/Plan: No [id number] is not confirmed AML remission Transfuse for hemoglobin less than 7 or symptomatic. Hgb 8.1, no transfusion today Transfused for platelet count less than 10,000, unless symptomatic. No transfusion today, platelets 28,000. Irradiated blood products only Current Visit: Yes Status: Acute Priority: High Code(s): D61.818 - OTHER PANCYTOPENIA SNOMED Code(s): 009373167 (3) Tumor lysis syndrome following antineoplastic drug therapy Narrative/Plan: Anticipated. Elitec given, fluids. Labs stable today. Cont labs daily. Current Visit: Yes Status: Acute Priority: High Code(s): E88.3 - TUMOR LYSIS SYNDROME; T45.1X5A - ADVERSE EFFECT OF ANTINEOPLASTIC AND IMMUNOSUP DRUGS, INIT SNOMED Code(s): 651420801 (4) Left upper extremity swelling Narrative/Plan: Extremity PICC is in. Doppler ordered for evaluation. If pt does have a clot, she cannot be on anticoagulation at this time because of low platelets. Would have to remove line and treat conservatively until plt recover adequately to start anticoagulation. Ativan ordered PRN and zofran frequency increased for nausea DC allopurinol and phenergan. Pt using morphine for back ache-states adequate pain control, denies side effects Current Visit: Yes Status: Acute Priority: High Code(s): M79.89 - OTHER SPECIFIED SOFT TISSUE DISORDERS SNOMED Code(s): 378220606 Plan: Attests: I have seen and examined patient, performed H&P, developed impression and plan of care. Discussed with dictator, agree with documentation. Documented as a scribe.
[2019-09-30] MEDS: SODIUM CHLORIDE 0.9% 1,000 ML IV SCH (11:32)
--- NOTE | 2019-09-30 12:26 | PN ---
PROGRESS NOTE Patient is seen for followup for chronic kidney disease, hyperkalemia, severe acidosis and tumor lysis syndrome post chemotherapy for AML. The patient's renal function is stable. She is complaining of mild shortness of breath. Otherwise, just generalized weakness. No significant complaints. On examination, blood pressure was 113/57, heart rate 89 per minute she is afebrile examination of the heart S1, S2. Examination of the lungs, decreased breath sounds at bases. Abdomen soft, nontender. Exam of lower extremities shows trace edema bilaterally. OPHTHALMOLOGY TECHNICIAN exam is grossly intact. Labs show hemoglobin 8.1, white cell count 0.5, platelet count 28,000, sodium 131, potassium 4.4, chloride 96, CO2 is 27, BUN 48, creatinine 1.98. ASSESSMENT: 1. Chronic kidney disease secondary to nephrosclerosis, renal function fairly stable. 2. Volume overload. I will discontinue the IV fluids. Maintain patient on IV Lasix for at least 24 hours. 3. Hyperkalemia associated with tumor lysis syndrome in the setting of chronic kidney disease, currently improved, status post bicarb drip. 4. Metabolic acidosis associated with renal failure tumor lysis syndrome, now resolved. 5. Chronic kidney disease mineral bone disorder, maintained on calcitriol. 6. Pancytopenia, multifactorial. PLAN: Discontinue IV fluids maintain. Patient on IV Lasix for at least 24 hours. Repeat labs in a.m. MMODL / IJN: [id number] /
[2019-09-30 12:50] LABS: T4, Free (Free Thyroxine) 1.83 ng/dL (0.78-2.19)
[2019-09-30] MEDS: ONDANSETRON 4 MG/2 ML VIAL IVP PRN (12:54)
--- NOTE | 2019-09-30 13:14 | US ---
EXAMINATION TYPE: US venous doppler duplex UE LT DATE OF EXAM: 09/30/2019 COMPARISON: NONE CLINICAL HISTORY: 74-year-old female swelling in arm with PICC line. Swelling left arm, pt had PICC l ine placement 6 days ago SIDE PERFORMED: Left TECHNIQUE: Grayscale, color doppler, spectral doppler imaging performed of the deep veins of the upp er extremities. FINDINGS: There is normal flow, compressibility and vascular waveforms. Left Arm: Senior Accounting Associate notes: Visualized portions appeared negative for DVT, PICC line felt to be with in left axillary and brachial vein, not within basilic vein/ blood flow is visualized around PICC ramila e/ Unable to follow brachial vein to antecubital fossa due to IV and large bandage on left arm, limit ed visualization IMPRESSION: Limited exam as above. No visualized DVT. Note PICC line position as mentioned above.
[2019-09-30] MEDS: SODIUM CHLORIDE 0.9% IV SCH (14:13)
[2019-09-30] MEDS: [UNRECOGNIZED DRUG - OTHER] IV SCH (14:13)
--- NOTE | 2019-09-30 15:33 | P.PN ---
Subjective Progress Note Date: 09/30/19 Principal diagnosis: Hyperkalemia Patient was seen and examined. No acute events overnight. Hemoglobin improved to 8.1 this morning. Potassium within normal limits this morning. Patient has no complaints except some mild shortness of breath. She also has increased swelling in her left upper extremity. She denies any chest pain, or palpitations. No nausea or vomiting. No fever or chills. Objective - Vital Signs Vital signs: Vital Signs Temp 97.9 F 09/30/19 11:54 Pulse 88 09/30/19 11:54 Resp 16 09/30/19 11:54 BP 111/56 09/30/19 11:54 Pulse Ox 89 L 09/30/19 11:54 Intake & Output 09/29/19 09/30/19 09/30/19 18:59 06:59 18:59 Intake Total 2762.5 300 1090 Output Total 1350 2750 1150 Balance 1412.5 -2450 -60 Intake: Intake, IV Titration 1562.5 500 Amount Calcium Gluconate 2 gm In 100 Sodium Chloride 0.9% 100 ml @ 60 mls/hr IVPB ONCE ONE Rx#:[id number] Cefepime 2 gm In Sodium 100 100 Chloride 0.9% 100 ml @ 200 mls/hr IVPB Q8HR [facility] Rx#:[id number] Dextrose 5% in Water 1, 912.5 000 ml @ 70 mls/hr IV . [id number] [facility] with Sodium Bicarb (1 Meq/ml) 150 ml Rx#:[id number] Promethazine Inj 25 mg In 50 Sodium Chloride 0.9% 50 ml @ 200 mls/hr IVPB Q6HR PRN Rx#:[id number] Sodium Chloride 0.9% 1, 200 350 000 ml @ 50 mls/hr IV . Q20H [facility] Rx#:[id number] Vancomycin 750 mg In 250 Sodium Chloride 0.9% 250 ml @ 125 mls/hr IVPB ONCE ONE Rx#:[id number] Oral 1200 300 590 Output: Urine 1350 2750 1150 Other: Voiding Method Toilet Toilet # Voids 1 3 - Exam General: [non toxic, appears pale], [no distress], [appears at stated age] Derm: [warm], [dry] Head: [atraumatic], [normocephalic], [symmetric] Eyes: [EOMI], [no lid lag], [anicteric sclera] Mouth: [no lip lesion], [mucus membranes moist] Cardiovascular: [S1S2 reg], [systolic murmur], [positive DP pulse bilateral], Lungs: [Decreased breath sounds bilateral], [no rhonchi, no rales] , [no accessory muscle use] Abdominal: [soft], [ nontender to palpation], [no guarding], [no appreciable organomegaly] Ext: [no gross muscle atrophy], [no edema], [no contractures], [left upper extremity generalized swelling with intact radial pulse] Neuro: [no focal neuro deficits] Psych: [Alert], [oriented], [appropriate affect] - Labs CBC & Chem 7: 09/30/19 08:20 09/30/19 08:20 Labs: Abnormal Lab Results - Last 24 Hours (Table) 09/27/19 09/30/19 09/30/19 Range/Units 15:27 08:20 08:20 WBC 0.5 L* (3.8-10.6) k/uL RBC 2.71 L (3.80-5.40) m/uL Hgb 8.1 L (11.4-16.0) gm/dL Hct 25.8 L (34.0-46.0) % RDW 15.8 H (11.5-15.5) % Plt Count 28 L (150-450) k/uL Sodium 131 L (137-145) mmol/L Chloride 96 L (98-107) mmol/L BUN 48 H (7-17) mg/dL Creatinine 1.98 H (0.52-1.04) mg/dL Glucose 118 H (74-99) mg/dL Uric Acid 3.4 L (3.7-7.4) mg/dL Calcium 7.4 L (8.4-10.2) mg/dL Phosphorus 6.0 H (2.5-4.5) mg/dL Magnesium 1.5 L (1.6-2.3) mg/dL Total Bilirubin 1.4 H (0.2-1.3) mg/dL AST 55 H (14-36) U/L Albumin 3.1 L (3.5-5.0) g/dL TSH (0.465-4.680) mIU/L Crossmatch See Detail 09/30/19 Range/Units 08:20 WBC (3.8-10.6) k/uL RBC (3.80-5.40) m/uL Hgb (11.4-16.0) gm/dL Hct (34.0-46.0) % RDW (11.5-15.5) % Plt Count (150-450) k/uL Sodium (137-145) mmol/L Chloride (98-107) mmol/L BUN (7-17) mg/dL Creatinine (0.52-1.04) mg/dL Glucose (74-99) mg/dL Uric Acid (3.7-7.4) mg/dL Calcium (8.4-10.2) mg/dL Phosphorus (2.5-4.5) mg/dL Magnesium (1.6-2.3) mg/dL Total Bilirubin (0.2-1.3) mg/dL AST (14-36) U/L Albumin (3.5-5.0) g/dL TSH 4.870 H (0.465-4.680) mIU/L Crossmatch Microbiology - Last 24 Hours (Table) 09/27/19 18:27 Blood Culture - Preliminary Blood No Growth after 48 hours Assessment and Plan Assessment: Acute hypoxic respiratory failure from volume overload Hyponatremia Left upper extremity swelling Hypocalcemia 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 Patient has received 2 units of PRBCs during this admission. She has also been aggressively hydrated. Start Lasix 40 mg IV twice a day and repeat chest x-ray tomorrow morning. Her hyponatremia is likely related to volume overload and will hopefully improve with diuresis. Received PICC line in the left upper extremity. Duplex has been ordered to rule out DVT. Continue Lasix as above. Her calcium is 7.4, improved. She received 2 g of calcium gluconate yesterday. Repeat CMP tomorrow morning. Her hemoglobin is 8.1. Likely related to AML. Plans: Has received 2 units PRBC so far. Repeat CBC tomorrow morning. BUN 48, creatinine 1.98. Likely related to dehydration and poor oral intake. Plans: Restart calcitriol. Avoid nephrotoxins. Repeat BMP tomorrow morning. BP 111/56. Plans: Continue nifedipine. Monitor vitals, adjust medications as necessary. Plans: Resume Synthroid. Repeat TSH in 6 weeks. DVT prophylaxis: [SCD boots due to anemia] Discussed with: [Patient] Anticipated discharge: [2-3 days] Anticipated discharge place: [Home] A total of [35] minutes was spent on the care of this complex patient more than 50% of the time was spent in counseling and care coordination. Patient names her daughter decision maker if she can't make decisions for herself. Patient would like to be full code.
[2019-09-30] MEDS: PANTOPRAZOLE 40 MG/10 ML VIAL IVP SCH (20:27)
[2019-09-30] MEDS: FUROSEMIDE 10 MG/ML 4 ML VIAL IV SCH (20:27)
[2019-09-30] MEDS: ACETAMINOPHEN TAB 325 MG TAB PO PRN (20:33)
[2019-09-30] MEDS ORDERED: VANCOMYCIN 750 MG in SODIUM CHLORIDE 0.9% 250 ML IVPB ONE (21:00)
--- NOTE | 2019-09-30 23:21 | XR ---
EXAMINATION TYPE: XR chest 1V portable DATE OF EXAM: 09/30/2019 COMPARISON: Yesterday HISTORY: Hypoxemia TECHNIQUE: FINDINGS: Heart appears enlarged. There is blunting of the costophrenic angles bilaterally. There is some pulmonary vascular congestion. There are chest leads. IMPRESSION: Congestive heart failure with pleural effusions. Right lower lobe pneumonia is possible. No change compared to yesterday.
[2019-10-01] MEDS: SALT AND SODA MOUTHWASH 1,000 ML PO SCH ×6 (03:00→23:05)
[2019-10-01] MEDS: LEVOTHYROXINE 75 MCG TAB PO SCH (06:09)
--- NOTE | 2019-10-01 07:06 | PN ---
PROGRESS NOTE DATE OF SERVICE: 09/30/2019 REASON FOR FOLLOWUP: Febrile neutropenia. INTERVAL HISTORY: Patient is currently afebrile with no fever for the last 24 hours. The patient is feeling better. No chest pain, shortness of breath or cough. No abdominal pain and no further diarrhea. Did have one episode of vomiting. PHYSICAL EXAMINATION: Blood pressure 113/59 with a pulse of 82, temperature of 98. She is 91% on 5 L nasal cannula. General description is an elderly female lying in bed in no distress. Respiratory system: Unlabored breathing, clear to auscultation anteriorly. Heart S1, S2. Regular rate and rhythm. Abdomen soft, no tenderness. LABS: Hemoglobin 8.8, white count 0.5, creatinine 1.98. Blood culture has been negative. DIAGNOSTIC IMPRESSION AND PLAN: Patient with ( ) in this patient with admission hospital with ( ) for induction of chemotherapy with evidence of neutropenia. The patient is currently covered with cefepime, to continue and monitor clinical course closely. Continue supportive care. MMODL / IJN: [id number] /
--- NOTE | 2019-10-01 07:19 | XR ---
EXAMINATION TYPE: XR chest 1V portable DATE OF EXAM: 10/01/2019 COMPARISON: Prior chest x-ray 09/30/2019 HISTORY: Hypoxia TECHNIQUE: Single frontal view of the chest is obtained. FINDINGS: Bibasilar increased density persists, the hemidiaphragms are secured. Heart size is likely stable. There is no evident pneumothorax. Left-sided PICC line is present, distal tip is overlying t he cavoatrial junction. There are overlying cardiac leads. IMPRESSION: Bibasilar effusions and associated atelectasis, correlate for possible edema or pneumoni a.
[2019-10-01 08:20] LABS: HCT 21.2 % (34.0-46.0); MCH 30.4 pg (25.0-35.0); MCHC 32.3 g/dL (31.0-37.0); MCV 94.2 fL (80.0-100.0); Mean Platelet Volume 11.2; RBC 2.25 m/uL (3.80-5.40); RDW 15.7 % (11.5-15.5)
[2019-10-01 08:28] LABS: WBC 0.5 k/uL (3.8-10.6)
[2019-10-01 08:30] LABS: Albumin 2.9 g/dL (3.5-5.0); Calcium 7.7 mg/dL (8.4-10.2); Magnesium 1.4 mg/dL (1.6-2.3); Phosphorus 5.7 mg/dL (2.5-4.5); Potassium 4.4 mmol/L (3.5-5.1); Total Bilirubin 1.3 mg/dL (0.2-1.3); Total Protein 6.2 g/dL (6.3-8.2)
[2019-10-01 08:31] LABS: HGB 6.8 gm/dL (11.4-16.0); Platelet Count 18 k/uL (150-450)
[2019-10-01] MEDS: PANTOPRAZOLE 40 MG/10 ML VIAL IVP SCH ×2 (09:07→20:30)
[2019-10-01] MEDS: CEFEPIME 2 GM in SODIUM CHLORIDE 0.9% 100 ML IVPB SCH (09:07)
[2019-10-01] MEDS: FUROSEMIDE 10 MG/ML 4 ML VIAL IV SCH (09:07)
[2019-10-01] MEDS: CALCIUM ACETATE 667 MG TAB PO SCH ×3 (09:08→17:48)
[2019-10-01] MEDS: FOLIC ACID 1 MG TAB PO SCH (09:08)
[2019-10-01] MEDS: ACETAMINOPHEN TAB 325 MG TAB PO PRN (09:08)
[2019-10-01] MEDS: VENCLEXTA 100 MG PO SCH (09:10)
[2019-10-01] MEDS: NIFEdipine XL 30 MG TAB.ER.24 PO SCH (09:11)
[2019-10-01] MEDS: VORICONAZOLE 200 MG PO SCH ×2 (09:11→20:31)
[2019-10-01] MEDS ORDERED: MAGNESIUM SULFATE-D5W PMX 1 GM in DEXTROSE/WATER 1 100ML.BAG IVPB ONE (09:26)
--- NOTE | 2019-10-01 12:19 | P.PN ---
Subjective Progress Note Date: 10/01/19 Principal diagnosis: This 74-year-old female with acute kidney injury from tumor lysis syndrome, with a creatinine peak of 2.31 this morning she additionally has chronic kidney dis ease her creatinine was 1.7 as of 09/17/2017 2 years ago. 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 She was admitted for induction chemotherapy. Today she is complaining of feeling fatigued and tired no nausea vomiting diarrhea no chest pain. She is on oxygen but not very short of breath at rest. Her heart rates are in the 70-80. Blood pressure in the 110 range Objective - Vital Signs Vital signs: Vital Signs Temp 98 F 10/01/19 11:49 Pulse 84 10/01/19 11:49 Resp 18 10/01/19 11:49 BP 116/60 10/01/19 11:49 Pulse Ox 90 L 10/01/19 11:49 Intake & Output 09/30/19 10/01/19 10/01/19 18:59 06:59 18:59 Intake Total 1210 590 100 Output Total 1150 2500 1200 Balance 60 -1910 -1100 Intake: Intake, IV Titration 500 350 100 Amount Cefepime 2 gm In Sodium 100 100 100 Chloride 0.9% 100 ml @ 200 mls/hr IVPB Q8HR [facility] Rx#:[id number] Promethazine Inj 25 mg In 50 Sodium Chloride 0.9% 50 ml @ 200 mls/hr IVPB Q6HR PRN Rx#:[id number] Sodium Chloride 0.9% 1, 350 000 ml @ 50 mls/hr IV . Q20H [facility] Rx#:[id number] Vancomycin 750 mg In 250 Sodium Chloride 0.9% 250 ml @ 125 mls/hr IVPB ONCE ONE Rx#:[id number] Oral 710 240 Output: Urine 1150 2500 1200 Other: Voiding Method Toilet Toilet On examination awake alert oriented on nasal cannula oxygen. HEENT exam no JVP neck is supple no facial asymmetry Lungs are clear to auscultation good air entry bilaterally Heart sounds are unremarkable for any murmur rub gallop Abdomen soft nontender Extreme exam was trace edema Neurologically awake alert oriented - Labs CBC & Chem 7: 10/01/19 07:48 10/01/19 07:48 Labs: Abnormal Lab Results - Last 24 Hours (Table) 07/05/2010/01/19 10/01/19 Range/Units 08:20 07:48 07:48 WBC 0.5 L* (3.8-10.6) k/uL RBC 2.25 L (3.80-5.40) m/uL Hgb 6.8 L* (11.4-16.0) gm/dL Hct 21.2 L (34.0-46.0) % RDW 15.7 H (11.5-15.5) % Plt Count 18 L* (150-450) k/uL Sodium 133 L (137-145) mmol/L Chloride 97 L (98-107) mmol/L BUN 49 H (7-17) mg/dL Creatinine 2.31 H (0.52-1.04) mg/dL Uric Acid 1.0 L (3.7-7.4) mg/dL Calcium 7.7 L (8.4-10.2) mg/dL Phosphorus 5.7 H (2.5-4.5) mg/dL Magnesium 1.4 L (1.6-2.3) mg/dL AST 53 H (14-36) U/L Total Protein 6.2 L (6.3-8.2) g/dL Albumin 2.9 L (3.5-5.0) g/dL TSH 4.870 H (0.465-4.680) mIU/L Crossmatch 10/01/19 Range/Units 10:17 WBC (3.8-10.6) k/uL RBC (3.80-5.40) m/uL Hgb (11.4-16.0) gm/dL Hct (34.0-46.0) % RDW (11.5-15.5) % Plt Count (150-450) k/uL Sodium (137-145) mmol/L Chloride (98-107) mmol/L BUN (7-17) mg/dL Creatinine (0.52-1.04) mg/dL Uric Acid (3.7-7.4) mg/dL Calcium (8.4-10.2) mg/dL Phosphorus (2.5-4.5) mg/dL Magnesium (1.6-2.3) mg/dL AST (14-36) U/L Total Protein (6.3-8.2) g/dL Albumin (3.5-5.0) g/dL TSH (0.465-4.680) mIU/L Crossmatch See Detail Microbiology - Last 24 Hours (Table) 09/27/19 18:27 Blood Culture - Preliminary Blood No Growth after 72 hours Assessment and Plan Assessment: Impression 1. Acute kidney injury slowly worsening creatinine and possibly volume depleted. Initially it was thought to be from tumor lysis syndrome as this is resolved with uric acid being 1, potassium is 4.4 phosphorus 5.7. Creatinine is up to 2.31, was 1.98 yesterday and 1.91 the day before. 2. Chronic kidney disease with nephrosclerosis Baseline creatinine 1.8 3. Recent diagnosis of acute myeloid leukemia admitted for induction chemotherapy 4. Mild hyponatremia secondary acute kidney injury. 5. Hypocalcemia from acute kidney injury calcium is 7.7 albumin is 2.9 and therefore corrected calcium is normal 6. Magnesium low is 1.4 this morning, possibly from the chemotherapy she received Dacogen Recommendation 1. Hold Lasix. 2. Reduce nifedipine because of the pressure being somewhat low 3. Replace magnesium. 4. Patient is vancomycin watch for worsening of renal function. 5. Monitor labs. 6. Gently hydrated normal saline at 50 an hour
[2019-10-01] MEDS: SODIUM CHLORIDE 0.9% 1,000 ML IV SCH ×2 (13:20→21:10)
--- NOTE | 2019-10-01 14:02 | P.CRDCN ---
History of Present Illness Consult date: 10/01/19 History of present illness: This is 74-year-old female is admitted for chemotherapy for acute myeloid leukemia. Patient developed renal failure and also anemia, and also thrombocytopenia related to chemotherapy. We're asked to see the patient because of bradycardia and suspected nonsustained V. tach. Patient has underlying left bundle branch block pattern. Patient had episodes of sinus pause during sleep hours. Patient is asymptomatic. Patient has sleep apnea. The bradycardia was most probably related to sleep apnea. Clinically patient does have systolic murmur in the aortic area and left sternal border consistent with probably mild aortic stenosis. No history of previous myocardial infarction. No hypertension or diabetes. We'll continue to monitor her rhythm. We'll get an echocardiogram. The observed suspected nonsustained V. tach seemed to be artifact. Review of Systems As per the chart Past Medical History Past Medical History: Blood Disorder, Cancer, Hypertension, Renal Disease Additional Past Medical History / Comment(s): Anemia, Stage 4 kidney disease, AML- started inpt. chemo 09/27/19- History of Any Multi-Drug Resistant Organisms: None Reported Past Surgical History: Appendectomy, Hysterectomy Past Anesthesia/Blood Transfusion Reactions: No Reported Reaction Past Psychological History: No Psychological Hx Reported Smoking Status: Never smoker Past Alcohol Use History: None Reported Past Drug Use History: None Reported - Past Family History Father Family Medical History: Cancer Additional Family Medical History / Comment(s): esophageal cancer Mother Family Medical History: Hypertension Medications and Allergies Home Medications Medication Instructions Recorded Confirmed Type Allopurinol [Zyloprim] 100 mg PO DAILY 09/08/19 09/27/19 History Calcitriol [Rocaltrol] 0.25 mcg PO TU 09/08/19 09/27/19 History Folate 666 mcg PO DAILY 09/08/19 09/27/19 History Levothyroxine Sodium [Synthroid] 75 mcg PO DAILY 09/08/19 09/27/19 History Losartan Potassium [Cozaar] 25 mg PO DAILY 09/08/19 09/27/19 History NIFEdipine XL [Procardia XL] 30 mg PO DAILY 09/08/19 09/27/19 History Venetoclax [Venclexta] 100 mg PO DAILY 09/27/19 09/27/19 History Voriconazole [Vfend] 200 mg PO Q12HR 09/27/19 09/27/19 History Allergies Allergy/AdvReac Type Severity Reaction Status Date / Time No Known Allergies Allergy Verified 09/27/19 11:24 Physical Exam Vitals: Vital Signs Temp Pulse Resp BP Pulse Ox 10/01/19 11:49 98 F 84 18 116/60 90 L 10/01/19 08:00 98.1 F 82 16 117/59 90 L 10/01/19 03:57 98.2 F 73 18 106/57 91 L 10/01/19 00:00 16 09/30/19 20:18 98 F 82 16 113/59 81 L 09/30/19 16:00 98.1 F 83 17 109/57 91 L Intake and Output 09/30/19 10/01/19 10/01/19 22:59 06:59 14:59 Intake Total 240 470 100 Output Total 4274 969 8576 Balance -1660 -130 -1100 Intake: Intake, IV Titration 350 100 Amount Cefepime 2 gm In Sodium 100 100 Chloride 0.9% 100 ml @ 200 mls/hr IVPB Q8HR [facility] Rx#:[id number] Vancomycin 750 mg In 250 Sodium Chloride 0.9% 250 ml @ 125 mls/hr IVPB ONCE ONE Rx#:[id number] Oral 240 120 Output: Urine 8005 724 1792 Other: Voiding Method Toilet Toilet GENERAL EXAM: Patient is alert and oriented and doesn't appear to be in any acute distress HEENT: Normocephalic. Normal reaction of pupils, equal size, normal range of extraocular motion. No erythema or exudates in the throat. NECK: No masses, no nuchal rigidity. CHEST: No chest wall deformity. LUNGS: Equal air entry with no crackles or wheeze. HEART: S1 and S2 normal with no audible mumurs or gallops. Regular rhythm, femorals equal on both sides.. ABDOMEN: No hepatosplenomegaly, normal bowel sounds, no guarding or rigidity. SKIN: No rashes CENTRAL NERVOUS SYSTEM: No focal deficits. EXTREMITIES: No cyanosis, clubbing or edema. Results 10/01/19 07:48 10/01/19 07:48 Cardiac Enzymes 10/01/19 Range/Units 07:48 AST 53 H (14-36) U/L CBC 10/01/19 Range/Units 07:48 WBC 0.5 L* (3.8-10.6) k/uL RBC 2.25 L (3.80-5.40) m/uL Hgb 6.8 L* (11.4-16.0) gm/dL Hct 21.2 L (34.0-46.0) % Plt Count 18 L* (150-450) k/uL Comprehensive Metabolic Panel 10/01/19 Range/Units 07:48 Sodium 133 L (137-145) mmol/L Potassium 4.4 (3.5-5.1) mmol/L Chloride 97 L (98-107) mmol/L Carbon Dioxide 29 (22-30) mmol/L BUN 49 H (7-17) mg/dL Creatinine 2.31 H (0.52-1.04) mg/dL Glucose 86 (74-99) mg/dL Calcium 7.7 L (8.4-10.2) mg/dL AST 53 H (14-36) U/L ALT 19 (4-34) U/L Alkaline Phosphatase 59 (38-126) U/L Total Protein 6.2 L (6.3-8.2) g/dL Albumin 2.9 L (3.5-5.0) g/dL Current Medications Generic Name Dose Route Start Last Admin Trade Name Freq PRN Reason Stop Dose Admin Acetaminophen 650 mg 09/27/19 17:00 10/01/19 09:08 Tylenol Tab PO 650 mg Q4HR PRN Administration Fever and/ or Pain Calcitriol 0.25 mcg 09/28/19 09:00 09/28/19 09:03 Rocaltrol PO 0.25 mcg TU [facility] Administration Calcium Acetate 667 mg 09/29/19 12:30 10/01/19 13:19 Phoslo PO 667 mg TID-W/MEALS [facility] Administration Folic Acid 0.5 mg 09/28/19 09:00 10/01/19 09:08 Folic Acid PO 0.5 mg DAILY [facility] Administration Dacogen (Decitabine) 50 mls @ 50 mls/hr 09/27/19 14:00 09/30/19 14:13 27 Mg In Sodium IV 10/01/19 14:59 50 mls/hr Chloride 0.9% 50 Ml Q24H [facility] Administration Cefepime HCl 2 gm/ Sodium 100 mls @ 200 mls/hr 09/27/19 18:00 10/01/19 09:07 Chloride IVPB 200 mls/hr Q8HR [facility] Administration Sodium Chloride 1,000 mls @ 50 mls/hr 10/01/19 12:30 10/01/19 13:20 Saline 0.9% IV 50 mls/hr .Q20H [facility] Administration Levothyroxine Sodium 75 mcg 09/28/19 06:30 10/01/19 06:09 Synthroid PO 75 mcg DAILY@0630 [facility] Administration Loperamide HCl 2 mg 09/27/19 12:42 09/27/19 16:35 Imodium PO 2 mg QID PRN Administration Diarrhea Lorazepam 0.5 mg 09/30/19 10:35 Ativan IV Q4HR PRN Anxiety Magnesium Hydroxide 2,400 mg 09/27/19 12:42 Milk Of Magnesia PO DAILY PRN Constipation Miscellaneous Information 1 each 09/27/19 17:46 Pharmacy To Dose Iv Vancomycin MISCELLANE DIRECTED PRN Per Protocol Protocol Morphine Sulfate 4 mg 09/29/19 19:59 09/29/19 20:16 Morphine Sulfate (Inj) IVP 4 mg Q4HR PRN Administration Pain Venclexta ( 1 each 09/27/19 09:00 10/01/19 09:10 Venetoclax) 100 Mg PO 1 each Tablet DAILY [facility] Administration Voriconazole (Vfend) 1 each 09/27/19 09:00 10/01/19 09:11 200 Mg Tablet PO 1 each BID [facility] Administration Ondansetron HCl 4 mg 09/30/19 09:23 09/30/19 12:54 Zofran IVP 4 mg Q4HR PRN Administration Nausea And Vomiting Pantoprazole Sodium 40 mg 09/30/19 21:00 10/01/19 09:07 Protonix IVP 40 mg BID [facility] Administration Senna 8.6 mg 09/27/19 12:42 Senokot PO BID PRN Constipation Sodium Bicarbonate 5 ml 09/27/19 11:00 10/01/19 11:36 PO 5 ml Q4H [facility] Administration Intake and Output 09/30/19 10/01/19 10/01/19 22:59 06:59 14:59 Intake Total 240 470 100 Output Total 8270 577 4844 Balance -1660 -130 -1100 Intake: Intake, IV Titration 350 100 Amount Cefepime 2 gm In Sodium 100 100 Chloride 0.9% 100 ml @ 200 mls/hr IVPB Q8HR [facility] Rx#:[id number] Vancomycin 750 mg In 250 Sodium Chloride 0.9% 250 ml @ 125 mls/hr IVPB ONCE ONE Rx#:[id number] Oral 240 120 Output: Urine 5301 000 6980 Other: Voiding Method Toilet Toilet 10/01/19 07:48 10/01/19 07:48 EKG Interpretations (text) Sinus rhythm with left bundle-branch block pattern Assessment and Plan (1) Acute myeloid leukemia Current Visit: Yes Status: Acute Priority: High Code(s): C92.00 - ACUTE MYELOBLASTIC LEUKEMIA, NOT HAVING ACHIEVED REMISSION SNOMED Code(s): 31499566 (2) Sinus pause Current Visit: Yes Status: Acute Code(s): I45.5 - OTHER SPECIFIED HEART BLOCK SNOMED Code(s): 22577151 (3) Left bundle branch block Current Visit: Yes Status: Acute Code(s): I44.7 - LEFT BUNDLE-BRANCH BLOCK, UNSPECIFIED SNOMED Code(s): 46424225 (4) Left bundle branch block Current Visit: Yes Status: Acute Code(s): I44.7 - LEFT BUNDLE-BRANCH BLOCK, UNSPECIFIED SNOMED Code(s): 42897408 (5) Aortic stenosis Current Visit: Yes Status: Acute Code(s): I35.0 - NONRHEUMATIC AORTIC (VALVE) STENOSIS SNOMED Code(s): 54173383 Plan: Continue to monitor her for any further arrhythmias. CPAP patient may help. We'll get an echocardiogram to assess LV function and also to assess aortic valve function
[2019-10-01] MEDS: [UNRECOGNIZED DRUG - OTHER] IV SCH (14:36)
[2019-10-01] MEDS: SODIUM CHLORIDE 0.9% IV SCH (14:36)
--- NOTE | 2019-10-01 15:58 | P.PN ---
Subjective Progress Note Date: 10/01/19 Principal diagnosis: Hyperkalemia Patient was seen and examined. No acute events overnight. Hemoglobin decreased to 6.8 this morning. Potassium within normal limits this morning. Overnight, patient went bradycardic into the 40s. She was asymptomatic at that time. Patient reports shortness of breath especially with exertion. Swelling in her left upper extremity has improved since yesterday. She denies any chest pain, or palpitations. No nausea or vomiting. No fever or chills. Objective - Vital Signs Vital signs: Vital Signs Temp 98 F 10/01/19 11:49 Pulse 84 10/01/19 11:49 Resp 18 10/01/19 11:49 BP 116/60 10/01/19 11:49 Pulse Ox 90 L 10/01/19 11:49 Intake & Output 09/30/19 10/01/19 10/01/19 18:59 06:59 18:59 Intake Total 1210 590 200 Output Total 1150 2500 1200 Balance 60 -1910 -1000 Intake: Intake, IV Titration 500 350 200 Amount Cefepime 2 gm In Sodium 100 100 100 Chloride 0.9% 100 ml @ 200 mls/hr IVPB Q8HR [facility] Rx#:[id number] Magnesium Sulfate-D5w Pmx 100 1 gm In Dextrose/Water 1 100ml.bag @ 100 mls/hr IVPB ONCE ONE Rx#: [id number] Promethazine Inj 25 mg In 50 Sodium Chloride 0.9% 50 ml @ 200 mls/hr IVPB Q6HR [facility] Rx#:[id number] Sodium Chloride 0.9% 1, 350 000 ml @ 50 mls/hr IV . Q20H [facility] Rx#:[id number] Vancomycin 750 mg In 250 Sodium Chloride 0.9% 250 ml @ 125 mls/hr IVPB ONCE ONE Rx#:[id number] Oral 710 240 Output: Urine 1150 2500 1200 Other: Voiding Method Toilet Toilet - Exam General: [non toxic, appears pale], [no distress], [appears at stated age] Derm: [warm], [dry] Head: [atraumatic], [normocephalic], [symmetric] Eyes: [EOMI], [no lid lag], [anicteric sclera] Mouth: [no lip lesion], [mucus membranes moist] Cardiovascular: [S1S2 reg], [systolic murmur], [positive DP pulse bilateral], Lungs: [Decreased breath sounds bilateral], [no rhonchi, no rales] , [no accessory muscle use] Abdominal: [soft], [ nontender to palpation], [no guarding], [no appreciable organomegaly] Ext: [no gross muscle atrophy], [no edema], [no contractures], [left upper extremity generalized swelling with intact radial pulse] Neuro: [no focal neuro deficits] Psych: [Alert], [oriented], [appropriate affect] - Labs CBC & Chem 7: 10/01/19 07:48 10/01/19 07:48 Labs: Abnormal Lab Results - Last 24 Hours (Table) 10/01/19 10/01/19 10/01/19 Range/Units 07:48 07:48 10:17 WBC 0.5 L* (3.8-10.6) k/uL RBC 2.25 L (3.80-5.40) m/uL Hgb 6.8 L* (11.4-16.0) gm/dL Hct 21.2 L (34.0-46.0) % RDW 15.7 H (11.5-15.5) % Plt Count 18 L* (150-450) k/uL Sodium 133 L (137-145) mmol/L Chloride 97 L (98-107) mmol/L BUN 49 H (7-17) mg/dL Creatinine 2.31 H (0.52-1.04) mg/dL Uric Acid 1.0 L (3.7-7.4) mg/dL Calcium 7.7 L (8.4-10.2) mg/dL Phosphorus 5.7 H (2.5-4.5) mg/dL Magnesium 1.4 L (1.6-2.3) mg/dL AST 53 H (14-36) U/L Total Protein 6.2 L (6.3-8.2) g/dL Albumin 2.9 L (3.5-5.0) g/dL Crossmatch See Detail Microbiology - Last 24 Hours (Table) 09/27/19 18:27 Blood Culture - Preliminary Blood No Growth after 72 hours Assessment and Plan Assessment: Acute hypoxic respiratory failure from volume overload Bradycardia with left bundle branch block Hyponatremia Left upper extremity swelling Hypocalcemia and hypomagnesemia 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 Patient has received 2 units of PRBCs during this admission. She has also been aggressively hydrated. Continue Lasix 40 mg IV twice a day and repeat chest x-ray tomorrow morning. Patient had heart rate in the 40s documented by nursing. Cardiology will be consulted for further recommendations. Follow-up echocardiogram. Her hyponatremia is likely related to volume overload and is improving with diuresis. Received PICC line in the left upper extremity. Duplex has been ordered to rule out DVT and is negative. Continue Lasix as above. Her calcium is 7.7, improved. She received 2 g of calcium gluconate yesterday. Repeat CMP tomorrow morning. Her hemoglobin is 6.8. Likely related to AML. Plans: Has received 2 units PRBC so far. Blood transfusion depending on oncology recommendations. Repeat CBC tomorrow morning. BUN 49, creatinine 2.31. Likely related to dehydration and poor oral intake. Plans: Restart calcitriol. Avoid nephrotoxins. Repeat BMP tomorrow morning. BP 116/60. Plans: Continue nifedipine. Monitor vitals, adjust medications as necessary. Plans: Resume Synthroid. Repeat TSH in 6 weeks. DVT prophylaxis: [SCD boots due to anemia] Discussed with: [Patient] Anticipated discharge: [2-3 days] Anticipated discharge place: [Home] A total of [35] minutes was spent on the care of this complex patient more than 50% of the time was spent in counseling and care coordination. Patient names her daughter decision maker if she can't make decisions for herself. Patient would like to be full code.
--- NOTE | 2019-10-01 16:37 | P.PN ---
Subjective Progress Note Date: 10/01/19 Patient had developed increased shortness of breath yesterday which was felt to be due to fluid overload. She also had nonsustained V. tach. Patient is improved with current management. She'll not had recurrence of nausea since her visit yesterday. No history of any bleeding. She continues to complain of discomfort in the left arm. Objective - Vital Signs Vital signs: Vital Signs Temp 98 F 10/01/19 11:49 Pulse 84 10/01/19 11:49 Resp 18 10/01/19 16:00 BP 116/60 10/01/19 11:49 Pulse Ox 90 L 10/01/19 11:49 Intake & Output 09/30/19 10/01/19 10/01/19 18:59 06:59 18:59 Intake Total 1210 590 200 Output Total 1150 2500 1200 Balance 60 -1910 -1000 Intake: Intake, IV Titration 500 350 200 Amount Cefepime 2 gm In Sodium 100 100 100 Chloride 0.9% 100 ml @ 200 mls/hr IVPB Q8HR [facility] Rx#:[id number] Magnesium Sulfate-D5w Pmx 100 1 gm In Dextrose/Water 1 100ml.bag @ 100 mls/hr IVPB ONCE ONE Rx#: [id number] Promethazine Inj 25 mg In 50 Sodium Chloride 0.9% 50 ml @ 200 mls/hr IVPB Q6HR [facility] Rx#:[id number] Sodium Chloride 0.9% 1, 350 000 ml @ 50 mls/hr IV . Q20H [facility] Rx#:[id number] Vancomycin 750 mg In 250 Sodium Chloride 0.9% 250 ml @ 125 mls/hr IVPB ONCE ONE Rx#:[id number] Oral 710 240 Output: Urine 1150 2500 1200 Other: Voiding Method Toilet Toilet - Constitutional General appearance: Present: no acute distress - EENT Eyes: Present: EOMI ENT: Present: hearing grossly normal, normal oropharynx - Respiratory Respiratory: bilateral: diminished - Cardiovascular Rhythm: regular Heart sounds: normal: S1, S2 - Gastrointestinal General gastrointestinal: Present: normal bowel sounds, soft - Integumentary Integumentary: Present: normal - Neurologic Neurologic: Present: CNII-XII intact - Musculoskeletal Musculoskeletal: Present: generalized weakness, strength equal bilaterally - Psychiatric Psychiatric: Present: A&O x's 3, appropriate affect - Labs CBC & Chem 7: 10/01/19 07:48 10/01/19 07:48 Labs: Abnormal Lab Results - Last 24 Hours (Table) 10/01/19 10/01/19 10/01/19 Range/Units 07:48 07:48 10:17 WBC 0.5 L* (3.8-10.6) k/uL RBC 2.25 L (3.80-5.40) m/uL Hgb 6.8 L* (11.4-16.0) gm/dL Hct 21.2 L (34.0-46.0) % RDW 15.7 H (11.5-15.5) % Plt Count 18 L* (150-450) k/uL Sodium 133 L (137-145) mmol/L Chloride 97 L (98-107) mmol/L BUN 49 H (7-17) mg/dL Creatinine 2.31 H (0.52-1.04) mg/dL Uric Acid 1.0 L (3.7-7.4) mg/dL Calcium 7.7 L (8.4-10.2) mg/dL Phosphorus 5.7 H (2.5-4.5) mg/dL Magnesium 1.4 L (1.6-2.3) mg/dL AST 53 H (14-36) U/L Total Protein 6.2 L (6.3-8.2) g/dL Albumin 2.9 L (3.5-5.0) g/dL Crossmatch See Detail Microbiology - Last 24 Hours (Table) 09/27/19 18:27 Blood Culture - Preliminary Blood No Growth after 72 hours Assessment and Plan (1) Dyspnea Narrative/Plan: This is felt to be due to fluid overload. Patient is improved with oxygen, diuretics, and decrease in IV fluid. Echocardiogram has been ordered. She has been evaluated by cardiology. The patient may need to resume IV hydration because of her underlying tumor lysis, depending on renal function. Nephrology is following. Defer to Them for fluid management. Current Visit: Yes Status: Acute Code(s): R06.00 - DYSPNEA, UNSPECIFIED SNOMED Code(s): 848461589 (2) Acute myeloid leukemia Narrative/Plan: Continue venetoclax. Tumor lysis labs are improved. Renal function is somewhat was in today but that could be due to diuresis. Hemoglobin was 6.8 today and 1 unit of irradiated PRBCs was ordered. Continue to monitor counts platelet transfusion support as needed. Continue oral therapy. Current Visit: Yes Status: Acute Priority: High Code(s): C92.00 - ACUTE MYELOBLASTIC LEUKEMIA, NOT HAVING ACHIEVED REMISSION SNOMED Code(s): 19239402 (3) Left upper extremity swelling Narrative/Plan: The case was discussed with radiology. The clarified that the position of the PICC line was satisfactory and would not interfere with function. It appears that the insertion site area could not be evaluated well on the initial Doppler as the patient had a bandage her arm. She has slightly related to this area. Therefore based on my discussion with radiologist, a repeat ultrasound without the bandage was ordered. If the patient is found to have a DVT, she'll require removal of the line and replacement of the other side. If this procedure isn't needed, she'll need platelet transfusion at that time. Current Visit: Yes Status: Acute Priority: High Code(s): M79.89 - OTHER SPECIFIED SOFT TISSUE DISORDERS SNOMED Code(s): 863049465 (4) Pancytopenia Narrative/Plan: PRBC transfusion today. Continue to monitor counts with transfusion to keep hemoglobin greater than 7 and platelets greater than 10. 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 Hydration had to be discontinued because of fluid overload. Continue to monitor. If there is evidence of recurrence, the patient will need to resume hydration, likely with more aggressive diuresis. Nephrology is following. Current Visit: Yes Status: Acute Priority: High Code(s): E88.3 - TUMOR LY SIS SYNDROME; T45.1X5A - ADVERSE EFFECT OF ANTINEOPLASTIC AND IMMUNOSUP DRUGS, INIT SNOMED Code(s): 488857819
--- NOTE | 2019-10-01 16:41 | US ---
EXAMINATION TYPE: US venous doppler duplex UE LT DATE OF EXAM: 10/01/2019 COMPARISON: 09/30/2019 CLINICAL HISTORY: 74-year-old female LUE swelling. Swelling within left arm, PICC line, patient's sanjuana se removed bandage at site of PICC insertion for tech to evaluate further SIDE PERFORMED: Left TECHNIQUE: Grayscale, color doppler, spectral doppler imaging performed of the deep veins of the upp er extremities. FINDINGS: Left Arm: PICC line seen within anterior brachial vein appears to have thrombus around insertion site , no flow detected around PICC with debris noted around line antecubital fossa IMPRESSION: PICC line seen within the left brachial vein. There is surrounding thrombus which appears occlusive n ear the insertion site. There is nonocclusive thrombus and debris within this vein extending up to th e level of the antecubital fossa.
[2019-10-01] MEDS: MORPHINE SULFATE 4 MG/ML SYRINGE IVP PRN (21:10)
--- NOTE | 2019-10-01 23:11 | PN ---
PROGRESS NOTE DATE OF SERVICE: 10/01/2019 REASON FOR FOLLOWUP: Febrile neutropenia. INTERVAL HISTORY: Patient is currently afebrile. The patient is breathing comfortably. Denies having any chest pain, shortness of breath or cough. No nausea, vomiting, abdominal pain or diarrhea. On exam, blood pressure 132/66, pulse of 82. Temperature is 97.5. She is 91% on 5 L nasal cannula. General description is an elderly female lying in bed in no distress. Respiratory system: Unlabored breathing, clear to auscultation anteriorly. HEART S1, S2. Regular rate and rhythm. Abdomen soft, no tenderness. LABS: Hemoglobin 6.1, white count 0.5, BUN of 49, creatinine is 2.31. DIAGNOSTIC IMPRESSION AND PLAN: Patient with febrile neutropenia in this patient currently undergoing induction chemotherapy. Culture has been negative so far with worsening of her kidney function. Vancomycin will be discontinued as no gram-positive infection has been seen. Continue with cefepime and monitor clinical course closely. MMODL / IJN: [id number] /
[2019-10-02] MEDS: SALT AND SODA MOUTHWASH 1,000 ML PO SCH ×6 (02:43→22:13)
[2019-10-02] MEDS: LEVOTHYROXINE 75 MCG TAB PO SCH (05:59)
[2019-10-02 07:10] LABS: HCT 23.9 % (34.0-46.0); HGB 7.7 gm/dL (11.4-16.0); MCHC 32.4 g/dL (31.0-37.0); MCV 92.6 fL (80.0-100.0); Mean Platelet Volume 13.8; RBC 2.58 m/uL (3.80-5.40); RDW 15.4 % (11.5-15.5)
[2019-10-02 07:21] LABS: Platelet Count 13 k/uL (150-450); WBC 0.5 k/uL (3.8-10.6)
[2019-10-02 07:23] LABS: ALT 29 U/L (4-34); AST 61 U/L (14-36); African American GFR (CKD) 23 (>60 ml/min/1.73 sqM); Albumin 2.9 g/dL (3.5-5.0); Alkaline Phosphatase 73 U/L (38-126); Anion Gap 8 mmol/L; Blood Urea Nitrogen 45 mg/dL (7-17); Calcium 7.8 mg/dL (8.4-10.2); Carbon Dioxide 26 mmol/L (22-30); Chloride 99 mmol/L (98-107); Glucose 85 mg/dL (74-99); Magnesium 1.6 mg/dL (1.6-2.3); Non-African American GFR(CKD) 20 (>60 ml/min/1.73 sqM); Phosphorus 4.5 mg/dL (2.5-4.5); Potassium 3.9 mmol/L (3.5-5.1); Sodium 133 mmol/L (137-145); Total Bilirubin 1.1 mg/dL (0.2-1.3); Uric Acid <0.5 mg/dL (3.7-7.4)
[2019-10-02] MEDS: FOLIC ACID 1 MG TAB PO SCH (08:17)
[2019-10-02] MEDS: CEFEPIME 2 GM in SODIUM CHLORIDE 0.9% 100 ML IVPB SCH (08:17)
[2019-10-02] MEDS: PANTOPRAZOLE 40 MG/10 ML VIAL IVP SCH ×2 (08:18→20:46)
[2019-10-02] MEDS: CALCIUM ACETATE 667 MG TAB PO SCH ×3 (08:18→17:13)
[2019-10-02] MEDS: VORICONAZOLE 200 MG PO SCH ×2 (08:20→20:46)
[2019-10-02 08:21] LABS: Large Platelets Present
[2019-10-02] MEDS: VENCLEXTA 100 MG PO SCH (08:22)
--- NOTE | 2019-10-02 08:45 | XR ---
EXAMINATION TYPE: XR chest 1V portable DATE OF EXAM: 10/02/2019 COMPARISON: 10/01/2019 INDICATION: Short of breath TECHNIQUE: Single frontal view of the chest is obtained. FINDINGS: The heart size is normal. The pulmonary vasculature is normal. Small right and minimal left pleural effusions are present, stable from yesterday. IMPRESSION: 1. Bilateral stable pleural effusions.
[2019-10-02] MEDS ORDERED: FUROSEMIDE 10 MG/ML 4 ML VIAL IV SCH (09:00)
[2019-10-02] MEDS: ONDANSETRON 4 MG/2 ML VIAL IVP PRN (09:07)
--- NOTE | 2019-10-02 10:19 | P.PN ---
Subjective Progress Note Date: 10/02/19 Principal diagnosis: Bradycardia/ LBBB / Sleep Apnea PROGRESS NOTE Patient seen lying in bed this morning with no acute distress. Patient receiving IV and oral chemotherapy for AML. Currently sinus rhythm on monitors heart rate in 80s. VSS. Afebrile. Patient has no current complains of chest pain, chest pressure, shortness of breath or palpitations. patient does have complaints of left arm pain with known thrombus on recent Doppler. Patient con tinues with Lasix 40 mg IV daily. TSH mildly elevated 4.870. Patient states she has followed with cardiology in the past but cannot remember the real estate operations manager's name. Patient has history of low thyroid hypertension, well- controlled and sleep apnea but is noncompliant with CPAP. Bradycardia secondary to MELINDA. Patient hemoglobin and hematocrit remain low. Platelet count 13. Currently on supplemental O2 at 10 L. Recent echo shows preserved ejection fraction at 55% with mild aortic stenosis. PHYSICAL EXAMINATION: HEENT: Head is atraumatic, normocephalic. Pupils are equal, round. Sclerae anicteric. Conjunctivae are clear. Mucous membranes of the mouth are moist. Neck is supple. There is no jugular venous distention. No carotid bruit is heard. No thyromegaly. LUNGS: Diminished to auscultation bilaterally. No chest wall tenderness is noted on palpation or with deep breathing. HEART: Regular rate and rhythm with III/ systolic murmur at base noted. No rubs or gallops. S1 and S2 heard. No lower extremity edema noted. ABDOMEN: Abdominal exam revealed normal bowel sounds. The abdomen was soft, non- tender, and without masses, organomegaly, or appreciable enlargement of the abdominal aorta. EXTREMITIES: Examination of the extremities revealed easily palpable radial, femoral and pedal pulses. There was no cyanosis, clubbing or edema. No calf tenderness noted. VASCULAR: Radial and dorsalis pedis pulses palpated, no evidence of clubbing. NEUROLOGIC: Patient is awake, alert and oriented x3. There were no obvious focal neurologic abnormalities. LAB DATA: WBC 0.5. Hemoglobin 7.7, hematocrit 23.9. Platelet count 13.0. Sodium 133. k 3.9, mag 2.0. BUN 45, CR 2.33. CA 7.8. Albumin/protien low. FINAL IMPRESSION: 1. hypertension, well-controlled 2. bradycardia secondary to MELINDA, advised CPAP use 3. hypothyroid, elevated TSH increased levothyroxine to 88 g daily 4. lower extremity edema, improved decrease Lasix to 20 mg by oral route once d aily. Monitor BUNs /creatinine trend. 5. left bundle branch block PLAN: STOP IV Lasix. Start oral Lasix 20 mg once daily. Increase levothyroxine to 88 g daily. Continue to monitor kidney function and hemoglobin hematocrit, platelet levels. Cardiology to follow along on a when necessary basis. Objective - Vital Signs Vital signs: Vital Signs Temp 97.3 F L 10/02/19 04:46 Pulse 79 10/02/19 08:10 Resp 16 10/02/19 08:10 BP 129/57 10/02/19 08:10 Pulse Ox 92 L 10/02/19 08:10 Intake & Output 10/01/19 10/02/19 10/02/19 18:59 06:59 18:59 Intake Total 755 760 Output Total 1200 1800 Balance -445 -1040 Intake: Intake, IV Titration 255 450 Amount Cefepime 2 gm In Sodium 100 Chloride 0.9% 100 ml @ 200 mls/hr IVPB Q8HR [facility] Rx#:[id number] Magnesium Sulfate-D5w Pmx 100 1 gm In Dextrose/Water 1 100ml.bag @ 100 mls/hr IVPB ONCE ONE Rx#: [id number] Sodium Chloride 0.9% 1, 55 450 000 ml @ 50 mls/hr IV . Q20H [facility] Rx#:[id number] Blood Product 0 310 Rc Irr As1 Unit 0 310 [id number] Other 500 Output: Urine 1200 1800 Other: Voiding Method Toilet Toilet Toilet - Labs CBC & Chem 7: 10/02/19 06:21 10/02/19 06:21 Labs: Abnormal Lab Results - Last 24 Hours (Table) 10/01/19 10/02/19 10/02/19 Range/Units 10:17 06:21 06:21 WBC 0.5 L* (3.8-10.6) k/uL RBC 2.58 L (3.80-5.40) m/uL Hgb 7.7 L (11.4-16.0) gm/dL Hct 23.9 L (34.0-46.0) % Plt Count 13 L* (150-450) k/uL Sodium 133 L (137-145) mmol/L BUN 45 H (7-17) mg/dL Creatinine 2.33 H (0.52-1.04) mg/dL Uric Acid <0.5 L (3.7-7.4) mg/dL Calcium 7.8 L (8.4-10.2) mg/dL AST 61 H (14-36) U/L Total Protein 6.0 L (6.3-8.2) g/dL Albumin 2.9 L (3.5-5.0) g/dL Crossmatch See Detail Microbiology - Last 24 Hours (Table) 09/27/19 18:27 Blood Culture - Preliminary Blood No Growth after 96 hours
--- NOTE | 2019-10-02 12:43 | P.CNPUL ---
History of Present Illness Consult date: 10/02/19 Requesting physician: Nelson Madsen Reason for consult: dyspnea, abnormal CXR/CT Chief complaint: Shortness of breath History of present illness: This is a very pleasant 74-year-old female patient who follows with Dr. Boyd as her primary care provider. She has a history of gout, hypertension, hy pothyroidism, stage IV kidney disease. She does follow with Dr. Chavez for a past history of ITP with observation only. Nondiagnostic bone marrow biopsies in August 2007 and February 2009. In early August she had presented to [facility] for progressive weakness and fatigue and was found to be severely anemic. She was transferred here to [facility] where she was worked up for her anemia. 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 She was subsequently discharged and had a PICC line placed on 09/24/2019. She was admitted here on 09/27/2019 for induction treatment with oral venetoclax and IV Dacogen for 5 days. She had been doing fairly well but did develop prog ressive shortness of breath. Abdominal ultrasound revealed evidence of splenomegaly, ascites. Initial chest x-ray showed mild fibrotic changes but no active acute pulmonary disease. Her oxygen requirements have increased she is currently at 10 L high flow nasal cannula. Today's chest x-ray shows bilateral pleural effusions. We are consulted for the same. She is seen on the oncology floor. She is currently awake and alert in no acute distress. Remains on 10 L high flow nasal cannula. She's currently afebrile. Hemodynamically stable. She did have emesis following her medication this morning. She is having some back discomfort. She has a loose nonproductive cough. She has received 3 units this admission. Blood culture revealing no growth. White count 0.5. Hemoglobin 7.7. Platelet count 13,000. Sodium 133. Potassium 3.9. Creatinine 2.33. She is on cefepime. IV diuretics switched to oral per cardiology. 0.9 normal saline at 50 MLS per hour. Echocardiogram revealed preserved left ventricular systolic function with ejection fraction of 55% and there was noted mild aortic stenosis. Ultrasound of the left upper extremity revealed thrombus around the insertion site of the PICC line, no flow detected around the PICC with debris noted around the left antecubital fossae. Review of Systems REVIEW OF SYSTEMS: CONSTITUTIONAL: Positive for weakness and fatigue. Denies any recent significant weight loss or weight gain. EYES: Denies change in vision. EARS, NOSE, MOUTH, THROAT: Denies headaches, denies sore throat. CARDIOVASCULAR: Denies chest pain, palpitations or syncopal episodes. RESPIRATORY: Positive for shortness of breath, cough, congestion or hemoptysis. GASTROINTESTINAL: Denies change in appetite, denies abdominal pain GENITOURINARY: Denies hematuria, denies infections. MUSKULOSKELETAL: Positive for back pain, denies swelling. INTEGUMENTARY: Denies rash, denies eczema. NEUROLOGICAL: Denies recent memory loss, no recent seizure activity. PSYCHIATRIC: Denies anxiety, denies depression. HEMATOLOGIC/LYMPHATIC: Denies anemia, denies enlarged lymph nodes. Past Medical History Past Medical History: Blood Disorder, Cancer, Hypertension, Renal Disease Additional Past Medical History / Comment(s): Anemia, Stage 4 kidney disease, AML- started inpt. chemo 09/27/19- History of Any Multi-Drug Resistant Organisms: None Reported Past Surgical History: Appendectomy, Hysterectomy Past Anesthesia/Blood Transfusion Reactions: No Reported Reaction Past Psychological History: No Psychological Hx Reported Smoking Status: Never smoker Past Alcohol Use History: None Reported Past Drug Use History: None Reported - Past Family History Father Family Medical History: Cancer Additional Family Medical History / Comment(s): esophageal cancer Mother Family Medical History: Hypertension Medications and Allergies Home Medications Medication Instructions Recorded Confirmed Type Allopurinol [Zyloprim] 100 mg PO DAILY 09/08/19 09/27/19 History Calcitriol [Rocaltrol] 0.25 mcg PO TU 09/08/19 09/27/19 History Folate 666 mcg PO DAILY 09/08/19 09/27/19 History Levothyroxine Sodium [Synthroid] 75 mcg PO DAILY 09/08/19 09/27/19 History Losartan Potassium [Cozaar] 25 mg PO DAILY 09/08/19 09/27/19 History NIFEdipine XL [Procardia XL] 30 mg PO DAILY 09/08/19 09/27/19 History Venetoclax [Venclexta] 100 mg PO DAILY 09/27/19 09/27/19 History Voriconazole [Vfend] 200 mg PO Q12HR 09/27/19 09/27/19 History Allergies Allergy/AdvReac Type Severity Reaction Status Date / Time No Known Allergies Allergy Verified 09/27/19 11:24 Physical Exam Vitals: Vital Signs Temp Pulse Pulse Resp BP BP Pulse Ox 10/02/19 11:24 97.9 F 84 16 133/62 94 L 10/02/19 08:10 79 16 129/57 92 L 10/02/19 08:00 79 16 10/02/19 06:57 16 90 L 10/02/19 06:04 16 86 L 10/02/19 05:47 90 L 10/02/19 05:42 90 L 10/02/19 05:00 90 L 10/02/19 04:46 97.3 F L 79 16 130/61 88 L 10/01/19 20:49 97.5 F L 82 18 132/66 91 L 10/01/19 20:29 97.7 F 67 18 128/65 10/01/19 18:05 97.6 F 79 16 130/56 91 L 10/01/19 17:35 97.6 F 83 18 129/55 89 L 10/01/19 17:25 97.6 F 93 16 115/58 90 L 10/01/19 16:00 97.7 F 79 18 115/59 90 L Intake and Output 10/01/19 10/02/19 10/02/19 22:59 06:59 14:59 Intake Total 865 450 Output Total 1050 750 900 Balance -185 -300 -900 Intake: Intake, IV Titration 55 450 Amount Sodium Chloride 0.9% 1, 55 450 000 ml @ 50 mls/hr IV . Q20H [facility] Rx#:[id number] Blood Product 310 Rc Irr As1 Unit 310 [id number] Other 500 Output: Urine 1050 750 900 Other: Voiding Method Toilet Toilet Toilet GENERAL EXAM: Alert, pleasant 74-year-old female patient, on 10 L high flow nasal cannula, currently comfortable in no apparent distress. HEAD: Normocephalic. EYES: Normal reaction of pupils, equal size. NOSE: Clear with pink turbinates. THROAT: No erythema or exudates. NECK: No masses, no JVD. CHEST: No chest wall deformity. LUNGS: Equal air entry with faint crackles in the posterior bases, diminished. CVS: S1 and S2 normal with no audible murmur, regular rhythm. ABDOMEN: No hepatosplenomegaly, normal bowel sounds, no guarding or rigidity. SPINE: No scoliosis or deformity SKIN: No rashes CENTRAL NERVOUS SYSTEM: No focal deficits, tone is normal in all 4 extremities. EXTREMITIES: Left upper extremity edema. There is no peripheral edema. No clubbing, no cyanosis. Peripheral pulses are intact. Results - Laboratory Findings CBC and BMP: 10/02/19 06:21 10/02/19 06:21 Abnormal lab findings: Abnormal Labs 09/27/19 09/27/19 09/27/19 11:00 11:00 15:27 WBC 11.0 H RBC 2.13 L 2.01 L Hgb 6.7 L* D 6.1 L* Hct 21.0 L 19.5 L* RDW 16.6 H 16.7 H Plt Count 100 L 82 L Blast Cells % 50 H* 44 H* Neutrophils # (Manual) 1.10 L Lymphocytes # (Manual) Monocytes # (Manual) 1.32 H Metamyelocytes # (Man) 0.11 H 0.14 H Myelocytes # (Manual) 0.22 H 0.07 H Promyelocytes # (Man) 0.07 H Blast Cells # (Man) 5.50 H 3.12 H Nucleated RBCs Sodium 135 L Potassium 5.2 H Chloride Carbon Dioxide 21 L BUN 47 H Creatinine 1.89 H Glucose Uric Acid Calcium Phosphorus Magnesium Total Bilirubin AST Total Protein Albumin TSH Urine Protein Amorphous Sediment Urine Mucus Crossmatch 09/27/19 09/27/19 09/27/19 15:27 15:27 18:27 WBC RBC 1.91 L Hgb 6.0 L* Hct 18.8 L* RDW 16.5 H Plt Count 92 L Blast Cells % 39 H* Neutrophils # (Manual) 0.80 L Lymphocytes # (Manual) Monocytes # (Manual) Metamyelocytes # (Man) 0.15 H Myelocytes # (Manual) 0.05 H Promyelocytes # (Man) 0.05 H Blast Cells # (Man) 1.99 H Nucleated RBCs 2 H Sodium 135 L Potassium 6.0 H Chloride Carbon Dioxide BUN 44 H Creatinine 1.94 H Glucose 106 H Uric Acid Calcium Phosphorus Magnesium Total Bilirubin AST Total Protein Albumin TSH Urine Protein Amorphous Sediment Urine Mucus Crossmatch See Detail 09/27/19 09/27/19 09/27/19 18:27 23:05 23:05 WBC RBC 1.63 L Hgb 5.2 L* Hct 16.0 L* RDW 16.7 H Plt Count 75 L Blast Cells % 37 H* Neutrophils # (Manual) Lymphocytes # (Manual) 0.99 L Monocytes # (Manual) Metamyelocytes # (Man) 0.09 H Myelocytes # (Manual) 0.04 H Promyelocytes # (Man) Blast Cells # (Man) 1.59 H Nucleated RBCs 3 H Sodium 136 L 132 L Potassium 7.8 H* 6.9 H* Chloride Carbon Dioxide 17 L 19 L BUN 49 H 56 H Creatinine 1.97 H 1.90 H Glucose 103 H 102 H Uric Acid Calcium 7.7 L 7.4 L Phosphorus 7.9 H 7.5 H Magnesium Total Bilirubin AST 110 H 101 H Total Protein Albumin 3.3 L TSH Urine Protein Amorphous Sediment Urine Mucus Crossmatch 09/28/19 09/28/19 09/28/19 00:15 06:34 06:34 WBC 1.9 L RBC 2.00 L Hgb 6.2 L* Hct 19.0 L* RDW 16.9 H Plt Count 59 L Blast Cells % 12 H* Neutrophils # (Manual) 0.70 L Lymphocytes # (Manual) 0.68 L Monocytes # (Manual) Metamyelocytes # (Man) 0.06 H Myelocytes # (Manual) 0.10 H Promyelocytes # (Man) Blast Cells # (Man) 0.23 H Nucleated RBCs Sodium 136 L Potassium 6.1 H* Chloride Carbon Dioxide BUN 55 H Creatinine 1.86 H Glucose Uric Acid 8.5 H Calcium 6.7 L Phosphorus 8.6 H Magnesium Total Bilirubin AST 99 H Total Protein 6.0 L Albumin 2.8 L TSH Urine Protein 1+ H Amorphous Sediment Rare H Urine Mucus Rare H Crossmatch 09/28/19 09/28/19 09/28/19 11:48 11:48 15:52 WBC 1.2 L* RBC 2.14 L Hgb 6.8 L* Hct 20.2 L RDW 16.8 H Plt Count 50 L Blast Cells % 13 H* Neutrophils # (Manual) 0.30 L* Lymphocytes # (Manual) 0.59 L Monocytes # (Manual) Metamyelocytes # (Man) Myelocytes # (Manual) 0.01 H Promyelocytes # (Man) Blast Cells # (Man) 0.16 H Nucleated RBCs Sodium 136 L Potassium 6.1 H* 5.6 H Chloride Carbon Dioxide BUN 56 H Creatinine 1.97 H Glucose Uric Acid Calcium 6.9 L Phosphorus 8.6 H Magnesium Total Bilirubin AST 96 H Total Protein 6.0 L Albumin 2.9 L TSH Urine Protein Amorphous Sediment Urine Mucus Crossmatch 09/28/19 09/28/19 09/28/19 15:55 20:21 20:21 WBC 1.2 L* 0.8 L* RBC 2.27 L 2.48 L Hgb 7.1 L 7.5 L Hct 21.4 L 23.3 L RDW 16.6 H 16.0 H Plt Count 58 L 49 L Blast Cells % 17 H* Neutrophils # (Manual) 0.30 L* Lymphocytes # (Manual) 0.56 L Monocytes # (Manual) Metamyelocytes # (Man) 0.02 H Myelocytes # (Manual) Promyelocytes # (Man) 0.01 H Blast Cells # (Man) 0.20 H Nucleated RBCs 1 H Sodium Potassium 5.3 H Chloride Carbon Dioxide BUN Creatinine Glucose Uric Acid Calcium Phosphorus Magnesium Total Bilirubin AST Total Protein Albumin TSH Urine Protein Amorphous Sediment Urine Mucus Crossmatch 09/29/19 09/29/19 09/30/19 06:49 06:49 08:20 WBC 0.5 L* 0.5 L* RBC 2.33 L 2.71 L Hgb 7.4 L 8.1 L Hct 21.9 L 25.8 L RDW 16.0 H 15.8 H Plt Count 35 L 28 L Blast Cells % Neutrophils # (Manual) Lymphocytes # (Manual) Monocytes # (Manual) Metamyelocytes # (Man) Myelocytes # (Manual) Promyelocytes # (Man) Blast Cells # (Man) Nucleated RBCs Sodium 135 L Potassium Chloride Carbon Dioxide BUN 56 H Creatinine 1.91 H Glucose 107 H Uric Acid Calcium 6.3 L* Phosphorus 7.6 H Magnesium Total Bilirubin AST 69 H Total Protein 5.7 L Albumin 2.7 L TSH Urine Protein Amorphous Sediment Urine Mucus Crossmatch 09/30/19 09/30/19 10/01/19 08:20 08:20 07:48 WBC 0.5 L* RBC 2.25 L Hgb 6.8 L* Hct 21.2 L RDW 15.7 H Plt Count 18 L* Blast Cells % Neutrophils # (Manual) Lymphocytes # (Manual) Monocytes # (Manual) Metamyelocytes # (Man) Myelocytes # (Manual) Promyelocytes # (Man) Blast Cells # (Man) Nucleated RBCs Sodium 131 L Potassium Chloride 96 L Carbon Dioxide BUN 48 H Creatinine 1.98 H Glucose 118 H Uric Acid 3.4 L Calcium 7.4 L Phosphorus 6.0 H Magnesium 1.5 L Total Bilirubin 1.4 H AST 55 H Total Protein Albumin 3.1 L TSH 4.870 H Urine Protein Amorphous Sediment Urine Mucus Crossmatch 10/01/19 10/01/19 10/02/19 07:48 10:17 06:21 WBC 0.5 L* RBC 2.58 L Hgb 7.7 L Hct 23.9 L RDW Plt Count 13 L* Blast Cells % Neutrophils # (Manual) Lymphocytes # (Manual) Monocytes # (Manual) Metamyelocytes # (Man) Myelocytes # (Manual) Promyelocytes # (Man) Blast Cells # (Man) Nucleated RBCs Sodium 133 L Potassium Chloride 97 L Carbon Dioxide BUN 49 H Creatinine 2.31 H Glucose Uric Acid 1.0 L Calcium 7.7 L Phosphorus 5.7 H Magnesium 1.4 L Total Bilirubin AST 53 H Total Protein 6.2 L Albumin 2.9 L TSH Urine Protein Amorphous Sediment Urine Mucus Crossmatch See Detail 10/02/19 06:21 WBC RBC Hgb Hct RDW Plt Count Blast Cells % Neutrophils # (Manual) Lymphocytes # (Manual) Monocytes # (Manual) Metamyelocytes # (Man) Myelocytes # (Manual) Promyelocytes # (Man) Blast Cells # (Man) Nucleated RBCs Sodium 133 L Potassium Chloride Carbon Dioxide BUN 45 H Creatinine 2.33 H Glucose Uric Acid <0.5 L Calcium 7.8 L Phosphorus Magnesium Total Bilirubin AST 61 H Total Protein 6.0 L Albumin 2.9 L TSH Urine Protein Amorphous Sediment Urine Mucus Crossmatch Assessment and Plan Assessment: 1 Acute hypoxemic respiratory failure secondary to bilateral effusions/atelectasis secondary to fluid volume overload 2 Acute myeloid leukemia. Currently on venetoclax and Dacogen 3 Pancytopenia secondary to above, status post 3 units packed red blood cells this admission. 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 6 History of hypertension 7 Prior history of ITP with observation only Plan: The patient was seen and evaluated by Dr. Alcantara Chest x-ray and labs reviewed Continue with diuretics Encouraged increased use the incentive spirometer and cough and deep breathing exercises No plans for thoracentesis at this time Titrate down the FiO2 as tolerated We will continue to follow and make further recommendations based on her clinical status I, the cosigning physician, performed a history & physical examination of the patient. Lungs sounds with faint crackles in the posterior bases, diminished. Maintaining good O2 saturations in the 90s on 10 L high flow nasal cannula. I discussed the assessment and plan of care with my nurse practitioner, Lily Alegre. I attest to the above consultation as dictated by her. Time with Patient: Greater than 30
--- NOTE | 2019-10-02 13:40 | P.PN ---
Subjective Progress Note Date: 10/02/19 Principal diagnosis: This 74-year-old female with acute kidney injury from tumor lysis syndrome, with a creatinine peak of 2.31 this morning she additionally has chronic kidney dis ease her creatinine was 1.7 as of 09/17/2017, 2 years ago. 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 She was admitted for induction chemotherapy. She is feeling slightly better today. She was started on IV fluids the Lasix was discontinued. She had edema and mild cough with some minimal shortness of breath on nasal cannula oxygen She continues to be nauseated and occasionally throws up needed no diarrhea. Blood pressure is at target in the 120 to 1:30 range afebrile Objective - Vital Signs Vital signs: Vital Signs Temp 97.9 F 10/02/19 11:24 Pulse 84 10/02/19 11:24 Resp 16 10/02/19 11:24 BP 133/62 10/02/19 11:24 Pulse Ox 94 L 10/02/19 11:24 Intake & Output 10/01/19 10/02/19 10/02/19 18:59 06:59 18:59 Intake Total 755 760 Output Total 1200 1800 900 Balance -024 -0575 -900 Intake: Intake, IV Titration 255 450 Amount Cefepime 2 gm In Sodium 100 Chloride 0.9% 100 ml @ 200 mls/hr IVPB Q8HR [facility] Rx#:[id number] Magnesium Sulfate-D5w Pmx 100 1 gm In Dextrose/Water 1 100ml.bag @ 100 mls/hr IVPB ONCE ONE Rx#: [id number] Sodium Chloride 0.9% 1, 55 450 000 ml @ 50 mls/hr IV . Q20H [facility] Rx#:[id number] Blood Product 0 310 Rc Irr As1 Unit 0 310 [id number] Other 500 Output: Urine 1200 1800 900 Other: Voiding Method Toilet Toilet Toilet On exam she is awake alert oriented but fatigued and tired looking HEENT exam no JVP neck is supple no facial asymmetry Lungs are significant for an occasional coarse crackle at bases Heart sounds are unremarkable for any murmur rub gallop Abdomen soft nontender nondistended Extremity exam reveals minimal to mild edema Neurologically awake alert oriented - Labs CBC & Chem 7: 10/02/19 06:21 10/02/19 06:21 Labs: Abnormal Lab Results - Last 24 Hours (Table) 10/01/19 10/02/19 10/02/19 Range/Units 10:17 06:21 06:21 WBC 0.5 L* (3.8-10.6) k/uL RBC 2.58 L (3.80-5.40) m/uL Hgb 7.7 L (11.4-16.0) gm/dL Hct 23.9 L (34.0-46.0) % Plt Count 13 L* (150-450) k/uL Sodium 133 L (137-145) mmol/L BUN 45 H (7-17) mg/dL Creatinine 2.33 H (0.52-1.04) mg/dL Uric Acid <0.5 L (3.7-7.4) mg/dL Calcium 7.8 L (8.4-10.2) mg/dL AST 61 H (14-36) U/L Total Protein 6.0 L (6.3-8.2) g/dL Albumin 2.9 L (3.5-5.0) g/dL Crossmatch See Detail Microbiology - Last 24 Hours (Table) 09/27/19 18:27 Blood Culture - Preliminary Blood No Growth after 96 hours Assessment and Plan Assessment: Impression 1. Acute kidney injury slowly worsening creatinine and possibly volume depleted. Initially it was thought to be from tumor lysis syndrome as this is resolved with uric acid being 1, potassium is 4.4 phosphorus 5.7. Creatinine is up to 2.31, was 2.31 yesterday and 1.98 day before yesterday and 1.91 the day before. 2. Chronic kidney disease with nephrosclerosis Baseline creatinine 1.8 3. Recent diagnosis of acute myeloid leukemia admitted for induction chemotherapy 4. Mild hyponatremia secondary acute kidney injury. Sodium is 133 stable 5. Hypocalcemia from acute kidney injury calcium is 7.7 albumin is 2.9 and the refore corrected calcium is normal 6. Magnesium improved from 1.4-1.6 this morning etiology is possibly from the chemotherapy she received Dacogen Recommendation 1. Hold Lasix. 2. Patient is vancomycin watch for worsening of renal function. 5. Monitor labs. 6. continue toGently hydrated normal saline
--- NOTE | 2019-10-02 14:29 | P.PN ---
Subjective Progress Note Date: 10/02/19 Principal diagnosis: Hyperkalemia Patient was seen and examined. No acute events overnight. Hemoglobin improved to 7.7. Potassium within normal limits this morning. Increase oxygen requirements currently on high flow nasal cannula. Requiring 10 L to maintain O2 saturation in the low 90s. Patient reports shortness of breath especially with exertion. Swelling in her left upper extremity has improved since yesterday. She denies any chest pain, or palpitations. No nausea or vomiting. No fever or chills. Objective - Vital Signs Vital signs: Vital Signs Temp 97.9 F 10/02/19 11:24 Pulse 84 10/02/19 11:24 Resp 16 10/02/19 11:24 BP 133/62 10/02/19 11:24 Pulse Ox 94 L 10/02/19 11:24 Intake & Output 10/01/19 10/02/19 10/02/19 18:59 06:59 18:59 Intake Total 755 760 Output Total 1200 1800 900 Balance -984 -5464 -900 Intake: Intake, IV Titration 255 450 Amount Cefepime 2 gm In Sodium 100 Chloride 0.9% 100 ml @ 200 mls/hr IVPB Q8HR [facility] Rx#:[id number] Magnesium Sulfate-D5w Pmx 100 1 gm In Dextrose/Water 1 100ml.bag @ 100 mls/hr IVPB ONCE ONE Rx#: [id number] Sodium Chloride 0.9% 1, 55 450 000 ml @ 50 mls/hr IV . Q20H [facility] Rx#:[id number] Blood Product 0 310 Rc Irr As1 Unit 0 310 [id number] Other 500 Output: Urine 1200 1800 900 Other: Voiding Method Toilet Toilet Toilet - Exam General: [non toxic, appears pale], [no distress], [appears at stated age] Derm: [warm], [dry] Head: [atraumatic], [normocephalic], [symmetric] Eyes: [EOMI], [no lid lag], [anicteric sclera] Mouth: [no lip lesion], [mucus membranes moist] Cardiovascular: [S1S2 reg], [systolic murmur], [positive DP pulse bilateral], Lungs: [Decreased breath sounds bilateral], [no rhonchi, no rales] , [no accessory muscle use] Abdominal: [soft], [ nontender to palpation], [no guarding], [no appreciable organomegaly] Ext: [no gross muscle atrophy], [no edema], [no contractures], [left upper extremity generalized swelling with intact radial pulse] Neuro: [no focal neuro deficits] Psych: [Alert], [oriented], [appropriate affect] - Labs CBC & Chem 7: 10/02/19 06:21 10/02/19 06:21 Labs: Abnormal Lab Results - Last 24 Hours (Table) 10/01/19 10/02/19 10/02/19 Range/Units 10:17 06:21 06:21 WBC 0.5 L* (3.8-10.6) k/uL RBC 2.58 L (3.80-5.40) m/uL Hgb 7.7 L (11.4-16.0) gm/dL Hct 23.9 L (34.0-46.0) % Plt Count 13 L* (150-450) k/uL Sodium 133 L (137-145) mmol/L BUN 45 H (7-17) mg/dL Creatinine 2.33 H (0.52-1.04) mg/dL Uric Acid <0.5 L (3.7-7.4) mg/dL Calcium 7.8 L (8.4-10.2) mg/dL AST 61 H (14-36) U/L Total Protein 6.0 L (6.3-8.2) g/dL Albumin 2.9 L (3.5-5.0) g/dL Crossmatch See Detail Microbiology - Last 24 Hours (Table) 09/27/19 18:27 Blood Culture - Preliminary Blood No Growth after 96 hours Assessment and Plan Assessment: Acute hypoxic respiratory failure from volume overload Bradycardia with left bundle branch block Hyponatremia Left upper extremity swelling with thrombus Hypocalcemia and hypomagnesemia 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 Patient has received 2 units of PRBCs during this admission. She has also been aggressively hydrated. Supplemental O2 per NC to keep O2 saturation greater than 92%. Lasix discontinued by cardiology. Pulmonology was consulted. Patient had heart rate in the 40s documented by nursing. Echocardiogram shows EF of 55%. Cardiology associates bradycardia to MELINDA. Cardiology will follow on as needed basis. Her hyponatremia is likely related to volume overload and is improving with diuresis. Received PICC line in the left upper extremity. Duplex has been reordered and there is a thrombus around the PICC line which was taken out. Will defer management to primary service oncology. Her calcium is 7.8, improved. Repeat CMP tomorrow morning. Her hemoglobin is 7.7. Likely related to AML. Plans: Has received 3 units PRBC so far. Repeat CBC tomorrow morning. BUN 45, creatinine 2.33. Likely related to dehydration and poor oral intake. Plans: Restart calcitriol. Avoid nephrotoxins. Repeat BMP tomorrow morning. BP 133/62. Plans: Continue nifedipine. Monitor vitals, adjust medications as necessary. Plans: Resume Synthroid. Repeat TSH in 6 weeks. DVT prophylaxis: [SCD boots due to anemia] Discussed with: [Patient] Anticipated discharge: [2-3 days] Anticipated discharge place: [Home] A total of [35] minutes was spent on the care of this complex patient more than 50% of the time was spent in counseling and care coordination. Patient names her daughter decision maker if she can't make decisions for herself. Patient would like to be full code.
--- NOTE | 2019-10-02 15:52 | PN ---
PROGRESS NOTE DATE OF SERVICE: October 02, 2019. CHIEF COMPLAINT: Tired. Roxane is seen today as a followup. She feels tired. There is no fever or chills. She is a little nauseated. No vomiting. No melena, hematochezia, or hemoptysis. Her current medications are reviewed in her electronic medical record. On physical examination, she is alert and x3. No acute distress. Her vital signs: Temperature 97.9, afebrile, pulse 84 regular, respirations 16, blood pressure 133/62, pulse ox 94 percent. HEENT: Normocephalic, atraumatic. She has sores on her lower lip. NECK: Supple. Chest equal expansion bilaterally. LUNGS: Clear to auscultation. Heart is regular rate and rhythm. ABDOMEN: Soft. No tenderness. Extremities reveal 1+ edema. Skin reveals multiple bruises. No petechiae or ecchymosis. LABORATORY DATA: Total WBC of 0.5, hemoglobin 7.7, hematocrit is 23.9, platelet count 13. Sodium 133, potassium 3.9, chloride is 99, CO2 is 26, and BUN is 45, creatinine 2.33. Her calcium is 7.8. IMPRESSION AND PLAN: 1. Recent diagnosis of acute myelogenous leukemia. The patient is currently on induction with Dacogen and oral Venetoclax. She completed 5 days of Dacogen and she continues on Venetoclax. 2. Tumor lysis syndrome. Appeared to be improving. 3. Elevated congestive heart failure due to fluid overload. This also has improved with diuresis, although her creatinine has gone up, but she has a good urine output and Nephrology has been following the patient. 4. Upper extremity thrombosis at the site of PICC line insertion, the PICC line was removed and there is no need of anticoagulation. Anyway she is significantly thrombocytopenic and the anticoagulation is contraindicated. 5. Continue to monitor blood counts. Supportive transfusion as needed. 6. Continue supportive care. 7. Continue prophylactic antifungal antibacterial and also add antiviral medication as well. Above was discussed in detail with the patient. I have answered all her questions. MMODL / IJN: [id number] /
[2019-10-02] MEDS: SODIUM CHLORIDE 0.9% 1,000 ML IV SCH (17:15)
[2019-10-02] MEDS: ACYCLOVIR 200 MG CAP PO SCH (20:46)
[2019-10-02] MEDS: ACETAMINOPHEN TAB 325 MG TAB PO PRN (22:12)
--- NOTE | 2019-10-02 22:21 | PN ---
PROGRESS NOTE DATE OF SERVICE: 10/02/2019 REASON FOR FOLLOWUP: Febrile neutropenia. INTERVAL HISTORY: Patient is currently afebrile. The patient denies having any chest pain. Some shortness of breath and requiring supplemental oxygen. One episode of vomiting this morning. No abdominal pain and no diarrhea. PHYSICAL EXAMINATION: Blood pressure 133/60 with a pulse of 84, temperature 97.9. She is on high-flow oxygen. General description is an elderly female lying in bed in no distress. Respiratory system: Unlabored breathing, clear to auscultation anteriorly. Heart S1, S2. Regular rate and rhythm. Abdomen soft, no tenderness. LABS: Hemoglobin 7.7, white count 0.5, BUN of 25, creatinine is 2.33. DIAGNOSTIC IMPRESSION AND PLAN: Patient with febrile neutropenia. Currently no obvious focus of infection. X-ray is more of a pulmonary vascular congestion, not a pneumonia pattern. The patient is covered with cefepime to continue and will monitor clinical course closely. MMODL / IJN: [id number] /
[2019-10-03] MEDS: MORPHINE SULFATE 4 MG/ML SYRINGE IVP PRN (00:27)
[2019-10-03] MEDS: SALT AND SODA MOUTHWASH 1,000 ML PO SCH ×6 (01:12→22:17)
[2019-10-03] MEDS: LEVOTHYROXINE 88 MCG TAB PO SCH (05:50)
[2019-10-03 07:26] LABS: HCT 23.2 % (34.0-46.0); HGB 7.7 gm/dL (11.4-16.0); Hypochromasia Slight; MCH 31.3 pg (25.0-35.0); MCHC 33.1 g/dL (31.0-37.0); MCV 94.6 fL (80.0-100.0); Mean Platelet Volume 11.9; RBC 2.45 m/uL (3.80-5.40); RDW 15.8 % (11.5-15.5)
[2019-10-03 07:35] LABS: Phosphorus 4.4 mg/dL (2.5-4.5)
[2019-10-03 07:39] LABS: Platelet Count 10 k/uL (150-450); WBC 0.5 k/uL (3.8-10.6)
[2019-10-03 08:02] LABS: Total Bilirubin 0.8 mg/dL (0.2-1.3); Total Protein 6.2 g/dL (6.3-8.2)
[2019-10-03] MEDS ORDERED: FUROSEMIDE 20 MG TAB PO SCH (09:00)
[2019-10-03] MEDS: PANTOPRAZOLE 40 MG/10 ML VIAL IVP SCH ×2 (09:11→21:50)
[2019-10-03] MEDS: ACYCLOVIR 200 MG CAP PO SCH ×2 (09:12→21:50)
[2019-10-03] MEDS: FOLIC ACID 1 MG TAB PO SCH (09:13)
[2019-10-03] MEDS: CALCIUM ACETATE 667 MG TAB PO SCH ×3 (09:13→17:41)
[2019-10-03] MEDS: CEFEPIME 2 GM in SODIUM CHLORIDE 0.9% 100 ML IVPB SCH (09:13)
[2019-10-03] MEDS: VENCLEXTA 100 MG PO SCH (09:14)
[2019-10-03] MEDS: VORICONAZOLE 200 MG PO SCH ×2 (09:14→21:51)
[2019-10-03] MEDS ORDERED: ALPRAZolam 0.5 MG TAB PO PRN (11:54)
--- NOTE | 2019-10-03 12:13 | P.PN ---
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 She was admitted for induction chemotherapy, which she received in the form of dacogen and Venetoclax She is complaining of shortness of breath this morning. She looks comfortable is on nasal cannula oxygen. Chest x-ray yesterday showed minimal bilateral effusions but no congestive heart failure. Creatinine stays stable at 2.31 which probably is her baseline or not far from it She is on small dose of IV Lasix on and off. She has good urine output over the last several days including 4900 mL yesterday. Her hemoglobin though is somewhat low at 7.7, bicarb is 26 therefore she is not acidotic Objective - Vital Signs Vital signs: Vital Signs Temp 97.9 F 10/03/19 11:16 Pulse 90 10/03/19 11:16 Resp 16 10/03/19 11:16 BP 153/65 10/03/19 11:16 Pulse Ox 97 10/03/19 11:16 Intake & Output 10/02/19 10/03/19 10/03/19 18:59 06:59 18:59 Intake Total 240 1390 0 Output Total 3000 1900 Balance -2760 -510 0 Intake: Intake, IV Titration 600 Amount Sodium Chloride 0.9% 1, 600 000 ml @ 50 mls/hr IV . Q20H [facility] Rx#:[id number] Oral 240 790 Blood Product 0 Platelet Irr Pheresis 0 Acda Unit [id number] Output: Urine 3000 1900 Other: Voiding Method Toilet Toilet Toilet # Voids 3 1 On examination awake alert oriented somewhat anxious and concerned. HEENT exam shows no JVP. Neck is supple no facial asymmetry Lungs are clear to auscultation fairly good air entry bilaterally Heart sounds are unremarkable for any murmur rub gallop Abdomen soft nontender Extremity exam reveals trace edema. - Labs CBC & Chem 7: 10/03/19 06:40 10/03/19 06:40 Labs: Abnormal Lab Results - Last 24 Hours (Table) 10/03/19 10/03/19 Range/Units 06:40 06:40 WBC 0.5 L* (3.8-10.6) k/uL RBC 2.45 L (3.80-5.40) m/uL Hgb 7.7 L (11.4-16.0) gm/dL Hct 23.2 L (34.0-46.0) % RDW 15.8 H (11.5-15.5) % Plt Count 10 L* (150-450) k/uL Sodium 136 L (137-145) mmol/L BUN 45 H (7-17) mg/dL Creatinine 2.31 H (0.52-1.04) mg/dL Calcium 8.0 L (8.4-10.2) mg/dL AST 61 H (14-36) U/L ALT 38 H (4-34) U/L Total Protein 6.2 L (6.3-8.2) g/dL Albumin 3.0 L (3.5-5.0) g/dL Microbiology - Last 24 Hours (Table) 09/27/19 18:27 Blood Culture - Preliminary Blood No Growth after 120 hours Assessment and Plan Assessment: Impression 1. Acute kidney injury slowly worsening creatinine and possibly volume depleted. Initially it was thought to be from tumor lysis syndrome as this is resolved with uric acid being 1, potassium is 4.4 phosphorus 5.7. Creatinine is 1.98, 2.31, 2.33, 2.31 over the last few days. 2. Chronic kidney disease, stage IV. Creatinine fluctuates between 1.8-2 over the last 2 years. Etiology is with nephrosclerosis 3. Recent diagnosis of acute myeloid leukemia admitted for induction c hemotherapy, received Dacogen and Venetoclox 4. Mild hyponatremia secondary acute kidney injury. Sodium is 133 stable 5. Hypocalcemia from acute kidney injury calcium is 7.7 albumin is 2.9 and t herefore corrected calcium is normal 6. Magnesium improved from 1.4-1.6 this morning etiology is possibly from the chemotherapy she received Dacogen Recommendation 1. Because of the shortness of breath she was given Lasix and she has made large amount of urine. There is no evidence of congestive heart failure by chest x-ray except for mild bilateral effusions. 2. Will give her 1 more dose of Lasix. 3. Will discontinue IV fluids. 4. Watch labs, including calcium phosphorus and creatinine
--- NOTE | 2019-10-03 12:18 | XR ---
EXAMINATION TYPE: XR chest 1V portable DATE OF EXAM: 10/03/2019 COMPARISON: 16/07/2019 HISTORY: Shortness of breath FINDINGS: There are bilateral pleural effusions with cardiomegaly and bibasilar infiltrate. There is a diffuse interstitial pattern. Heart size stable. IMPRESSION: 1. Bilateral pleural-parenchymal changes correlate for CHF otherwise consider pneumonia.
[2019-10-03] MEDS ORDERED: FUROSEMIDE 10 MG/ML 2 ML VIAL IV ONE (14:00)
--- NOTE | 2019-10-03 14:01 | PN ---
PROGRESS NOTE DATE OF SERVICE: October 03, 2019. CHIEF COMPLAINT: Short of breath. Roxane is seen today as a followup. She feels less just shortness of breath but also she also complained of being anxious and she denies any chest pain or heaviness in her chest. She had nausea, which has improved. No fever or chills. No melena, hematochezia, hematuria or hemoptysis. Medication reviewed in her electronic medical record. On physical examination, she is alert and oriented x3. Does not appear to be in distress. Her vital signs are temperature 98, afebrile, pulse 83, regular, respiration 18, blood pressure 142/70, pulse ox is 97 percent on 8 L nasal cannula. She had she has a good urine output. HEENT: Normocephalic atraumatic. No icterus. NECK: Supple. CHEST equal expansion bilaterally. LUNGS revealed decreased breath sounds at both bases, worse on the right. ABDOMEN: Soft. No tenderness or organomegaly. Bowel sounds present. EXTREMITIES: No edema. SKIN: A few bruises noted. MUSCULOSKELETAL: Moving all extremities appropriately. No percussion tenderness or response to sternum. LABORATORY DATA: Total WBC of 0.5, hemoglobin 7.7, hematocrit is 10. Sodium 136, potassium 4.0, chloride 103, CO2 is 7. Her creatinine is 2.3. Her uric acid is less than 0.5, calcium is 8.0, magnesium is 1.6. IMPRESSION AND PLAN: 1. Recent diagnosis of acute myelogenous leukemia. The patient started on induction treatment with Dacogen and Venetoclax. She completed Dacogen and she continues on Venetoclax. 2. Tumor lysis syndrome. Seems to be improving. 3. Acute on chronic kidney disease. 4. Creatinine now is around baseline. 5. Myelosuppression secondary to above. On supportive transfusion, she will receive platelet transfusion today. 6. Dyspnea. It could be possibly related to fluid overload. She does have bilateral pleural effusion. I did discuss her care with per Nephrology service and plan to give her an extra dose of Lasix later today and to discontinue IV fluids. 7. Continue prophylactic antifungal antiviral and antibiotics. 8. Continue supportive care. MMODL / IJN: [id number] /
[2019-10-03 17:21] LABS: Glucose,Whole Blood 88 mg/dL (75-99)
--- NOTE | 2019-10-03 18:18 | P.PN ---
Subjective Progress Note Date: 10/03/19 Principal diagnosis: Hyperkalemia Patient was seen and examined. No acute events overnight. Hemoglobin improved to 7.7. Potassium within normal limits this morning. Increase oxygen requirements currently on high flow nasal cannula. Requiring 10 L to maintain O2 saturation in the low 90s. Patient reports shortness of breath especially with exertion, worsened from yesterday. Also has lesions on her lip. Swelling in her left upper extremity has improved since yesterday. She denies any chest pain, or palpitations. No nausea or vomiting. No fever or chills. Objective - Vital Signs Vital signs: Vital Signs Temp 98.4 F 10/03/19 12:34 Pulse 90 10/03/19 14:57 Resp 18 10/03/19 14:57 BP 146/78 10/03/19 12:34 Pulse Ox 96 10/03/19 12:34 Intake & Output 10/02/19 10/03/19 10/03/19 18:59 06:59 18:59 Intake Total 240 1390 513 Output Total 3000 1900 1150 Balance -2760 -510 -637 Weight 45.767 kg Intake: Intake, IV Titration 600 Amount Sodium Chloride 0.9% 1, 600 000 ml @ 50 mls/hr IV . Q20H [facility] Rx#:[id number] Oral 240 790 120 Blood Product 393 Platelet Irr Pheresis 393 Acda Unit [id number] Output: Urine 3000 1900 1150 Other: Voiding Method Toilet Toilet Toilet # Voids 3 1 1 - Exam General: [non toxic, appears pale], [no distress], [appears at stated age] Derm: [warm], [dry] herpetic lesions on the left, Head: [atraumatic], [normocephalic], [symmetric] Eyes: [EOMI], [no lid lag], [anicteric sclera] Mouth: [no lip lesion], [mucus membranes moist] Cardiovascular: [S1S2 reg], [systolic murmur], [positive DP pulse bilateral], Lungs: [Decreased breath sounds bilateral], [no rhonchi, no rales] , [no accessory muscle use] Abdominal: [soft], [ nontender to palpation], [no guarding], [no appreciable organomegaly] Ext: [no gross muscle atrophy], [no edema], [no contractures], [left upper extremity generalized swelling with intact radial pulse] Neuro: [no focal neuro deficits] Psych: [Alert], [oriented], [appropriate affect] - Labs CBC & Chem 7: 10/03/19 06:40 10/03/19 06:40 Labs: Abnormal Lab Results - Last 24 Hours (Table) 10/03/19 10/03/19 Range/Units 06:40 06:40 WBC 0.5 L* (3.8-10.6) k/uL RBC 2.45 L (3.80-5.40) m/uL Hgb 7.7 L (11.4-16.0) gm/dL Hct 23.2 L (34.0-46.0) % RDW 15.8 H (11.5-15.5) % Plt Count 10 L* (150-450) k/uL Sodium 136 L (137-145) mmol/L BUN 45 H (7-17) mg/dL Creatinine 2.31 H (0.52-1.04) mg/dL Calcium 8.0 L (8.4-10.2) mg/dL AST 61 H (14-36) U/L ALT 38 H (4-34) U/L Total Protein 6.2 L (6.3-8.2) g/dL Albumin 3.0 L (3.5-5.0) g/dL Microbiology - Last 24 Hours (Table) 09/27/19 18:27 Blood Culture - Preliminary Blood No Growth after 120 hours Assessment and Plan Assessment: Acute hypoxic respiratory failure from volume overload Herpes Bradycardia with left bundle branch block Hyponatremia Left upper extremity swelling with thrombus Hypocalcemia and hypomagnesemia 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 Patient has received 2 units of PRBCs during this admission. She has also been aggressively hydrated. Supplemental O2 per NC to keep O2 saturation greater than 92%. One dose of Lasix 20 mg IV today. Follow cardiology consultation. Follow pulmonology consultation. Likely from chemotherapy. Continue acyclovir. Patient had heart rate in the 40s documented by nursing. Echocardiogram shows EF of 55%. Cardiology associates bradycardia to MELINDA. Cardiology will follow on as needed basis. Her hyponatremia is likely related to volume overload and is improving with diuresis. Received PICC line in the left upper extremity. Duplex has been reordered and there is a thrombus around the PICC line which was taken out. Oncology does not recommend anticoagulation at this time. Her calcium is 8, improved. Repeat CMP tomorrow morning. Her hemoglobin is 7.7. Likely related to AML. Plans: Has received 3 units PRBC so far. Repeat CBC tomorrow morning. BUN 45, creatinine 2.31. Likely related to dehydration and poor oral intake. Plans: Restart calcitriol. Avoid nephrotoxins. Repeat BMP tomorrow morning. BP 146/78. Plans: Continue nifedipine. Monitor vitals, adjust medications as necessary. Plans: Resume Synthroid. Repeat TSH in 6 weeks. DVT prophylaxis: [SCD boots due to anemia] Discussed with: [Patient] Anticipated discharge: [2-3 days] Anticipated discharge place: [Home] A total of [35] minutes was spent on the care of this complex patient more than 50% of the time was spent in counseling and care coordination. Patient names her daughter decision maker if she can't make decisions for herself. Patient would like to be full code.
[2019-10-04] MEDS: SALT AND SODA MOUTHWASH 1,000 ML PO SCH ×6 (03:24→22:41)
[2019-10-04] MEDS: LEVOTHYROXINE 88 MCG TAB PO SCH (06:08)
--- NOTE | 2019-10-04 07:28 | PN ---
PROGRESS NOTE DATE OF SERVICE: 10/03/2019 REASON FOR FOLLOWUP: Febrile neutropenia. INTERVAL HISTORY: The patient is currently afebrile. The patient is breathing slightly comfortably. The patient denies having any chest pain. Minimal cough. No sputum. Some nausea and vomiting. No abdominal pain and no diarrhea. PHYSICAL EXAMINATION: Blood pressure 149/67, pulse of 90, temperature 97.8. She is 94% on high-flow oxygen. General description is an elderly female lying in bed in no distress. RESPIRATORY SYSTEM: Unlabored breathing, clear to auscultation anteriorly. HEART: S1, S2. Regular rate and rhythm. ABDOMEN: Soft, no tenderness. LABS: Hemoglobin 7.7, white count 0.5, BUN 45, creatinine is 2.31. DIAGNOSTIC IMPRESSION AND PLAN: Patient with fever in this patient undergoing chemotherapy for acute myeloid leukemia and significant neutropenia. Patient is covered with cefepime to continue. Will monitor clinical course closely. Continue with supportive care. MMODL / MARIANNEN: [id number] /
[2019-10-04 07:37] LABS: HCT 21.1 % (34.0-46.0); MCH 29.9 pg (25.0-35.0); MCHC 31.8 g/dL (31.0-37.0); Mean Platelet Volume 13.2; RBC 2.25 m/uL (3.80-5.40); RDW 15.4 % (11.5-15.5)
[2019-10-04 07:40] LABS: WBC 0.4 k/uL (3.8-10.6)
[2019-10-04 07:41] LABS: Platelet Count 7 k/uL (150-450)
[2019-10-04 07:44] LABS: HGB 6.7 gm/dL (11.4-16.0)
[2019-10-04] MEDS: CEFEPIME 2 GM in SODIUM CHLORIDE 0.9% 100 ML IVPB SCH (07:50)
[2019-10-04] MEDS: CALCIUM ACETATE 667 MG TAB PO SCH ×3 (07:51→17:58)
[2019-10-04] MEDS: PANTOPRAZOLE 40 MG/10 ML VIAL IVP SCH ×2 (07:51→21:41)
[2019-10-04] MEDS: FOLIC ACID 1 MG TAB PO SCH (07:51)
[2019-10-04] MEDS: ACYCLOVIR 200 MG CAP PO SCH ×2 (07:51→21:41)
[2019-10-04 08:25] LABS: Calcium 8.2 mg/dL (8.4-10.2); Phosphorus 3.1 mg/dL (2.5-4.5); Potassium 3.5 mmol/L (3.5-5.1)
[2019-10-04] MEDS: VENCLEXTA 100 MG PO SCH (08:56)
[2019-10-04] MEDS: VORICONAZOLE 200 MG PO SCH ×2 (08:56→21:43)
[2019-10-04] MEDS ORDERED: FUROSEMIDE 10 MG/ML 4 ML VIAL IV STA (13:18)
[2019-10-04] MEDS ORDERED: LIDOCAINE 1% INJ 10MG/ML (20 ML MDV) ONE (13:38)
[2019-10-04] MEDS ORDERED: LIDOCAINE 1% INJ 10MG/ML (20 ML MDV) SQ ONE (13:42)
--- NOTE | 2019-10-04 14:16 | IR ---
PICC LINE PLACEMENT: HISTORY: Infection requiring long-term antibiotic therapy PROCEDURE: Ultrasound and fluoroscopic guidance of PICC line placement. COMPLICATIONS: None ANESTHESIA: 1. 1% Lidocaine locally. FINDINGS/TECHNIQUE: The procedure was explained to the patient. The risks, complications, benefits and alternatives were discussed and any questions were answered. Informed consent was obtained. The patient was placed supine on the fluoroscopic table and prepped and draped in the usual sterile fash ion. Utilizing a 21 gauge needle and sonographic and fluoroscopic guidance, access in the right cep halic vein was achieved and there is placement of a 0.018 guidewire. The vein is patent. A 4-F mata th was placed over the guidewire. The guidewire and dilator were removed and a 4-F. PICC line was pl aced through the sheath with the tip at the level of the SVC. The sheath was removed, the catheter w as flushed and sutured into position. The patient was stable throughout the procedure and remained s table upon discharge from the Department of Radiology. The vein puncture was patent under ultrasound. A arroyo scale image was obtained to document patency of the vein punctured. All elements of the maximal barrier technique were utilized. FLUOROSCOPY TIME: 0.1 and 1 images submitted IMPRESSION: Successful PICC line placement under ultrasound and fluoroscopic guidance.
--- NOTE | 2019-10-04 15:46 | PN ---
PROGRESS NOTE DATE OF SERVICE: 10/04/2019 REASON FOR FOLLOWUP: Febrile neutropenia. INTERVAL HISTORY: The patient is currently afebrile. She has been complaining of some shortness of breath but denies having any chest pain or cough. Nausea but no vomiting. No abdominal pain and no diarrhea. PHYSICAL EXAMINATION: Blood pressure is 184/71 with a pulse of 87, temperature 97.8. She is 96% on 3 L nasal cannula. General description is an elderly female lying in bed in no distress. RESPIRATORY SYSTEM: Unlabored breathing. Clear to auscultation anteriorly. HEART: S1, S2. Regular rate and rhythm. ABDOMEN: Soft. No tenderness. LABS: Hemoglobin 6.7, white count 0.4. Creatinine is 2.35. DIAGNOSTIC IMPRESSION AND PLAN: Patient with febrile neutropenia. Currently no other focus of infection. Patient is currently covered with cefepime; to continue. Culture has been negative. Monitor clinical course closely. MMODL / IJN: [id number] /
--- NOTE | 2019-10-04 16:03 | P.PN ---
Subjective Progress Note Date: 10/04/19 Principal diagnosis: Dyspnea, fluid overload This is a very pleasant 74-year-old female patient who follows with Dr. Boyd as her primary care provider. She has a history of gout, hypertension, hypothyroidism, stage IV kidney disease. She does follow with Dr. Chavez for a past history of ITP with observation only. Nondiagnostic bone marrow biopsies in August 2007 and February 2009. In early August she had presented to [facility] for progressive weakness and fatigue and was found to be severely anemic. She was transferred here to [facility] where she was worked up for her anemia. 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 She was subsequently discharged and had a PICC line placed on 09/24/2019. She was admitted here on 09/27/2019 for induction treatment with oral venetoclax and IV Dacogen for 5 days. She had been doing fairly well but did develop progressive shortness of breath. Abdominal ultrasound revealed evidence of splenomegaly, ascites. Initial chest x-ray showed mild fibrotic changes but no active acute pulmonary disease. Her oxygen requirements have increased she is currently at 10 L high flow nasal cannula. Today's chest x-ray shows bilateral pleural effusions. We are consulted for the same. She is seen on the oncology floor. She is currently awake and alert in no acute distress. Remains on 10 L high flow nasal cannula. She's currently afebrile. Hemodynamically stable. She did have emesis following her medication this morning. She is having some back discomfort. She has a loose nonproductive cough. She has received 3 units this admission. Blood culture revealing no growth. White count 0.5. Hemoglobin 7.7. Platelet count 13,000. Sodium 133. Potassium 3.9. Creatinine 2.33. She is on cefepime. IV diuretics switched to oral per cardiology. 0.9 normal saline at 50 MLS per hour. Echocardiogram revealed preserved left ventricular systolic function with ejection fraction of 55% and there was noted mild aortic stenosis. Ultrasound of the left upper extremity revealed thrombus around the insertion site of the PICC line, no flow detected around the PICC with debris noted around the left antecubital fossae. On 10/04/2019 patient seen in follow-up on medical oncology unit. She is awake and alert, but appears generally weak, and fatigued, on 3 L of oxygen a pulse ox of 96%, she is afebrile. Mild dyspnea is noted with conversation, lung sounds are diminished at the bases, no complaints of cough or congestion. Patient is on IV antibiotics, she is getting maintenance dose of oral Lasix daily, she received an extra dose of IV Lasix today per nephrology. She is maintaining negative fluid balance, she is in -1 L over the last 24 hours. Yesterday's chest x-ray showed bilateral pleural effusions and bibasilar infiltrated it with a diffuse interstitial pattern related to fluid overload, and CHF. Today's labs have been reviewed showing white blood cell, 0.4, hemoglobin of 6.7, sodium is 135, the rest of the left lites are within normal limits, renal profile is relatively stable with BUN of 41, and creatinine 2.35. Blood culture has shown no growth thus far. Still remains significantly neutropenic, and patient continues on supportive treatment. Objective - Vital Signs Vital signs: Vital Signs Temp 98.1 F 10/04/19 14:35 Pulse 83 10/04/19 14:35 Resp 18 10/04/19 14:35 BP 168/74 10/04/19 14:35 Pulse Ox 99 10/04/19 13:03 Intake & Output 10/03/19 10/04/19 10/04/19 18:59 06:59 18:59 Intake Total 513 1310 1209 Output Total 1150 3300 2250 Balance -637 -1990 -1041 Weight 45.767 kg Intake: Intake, IV Titration 100 Amount Cefepime 2 gm In Sodium 100 Chloride 0.9% 100 ml @ 200 mls/hr IVPB Q24HR [facility] Rx#:[id number] Oral 120 1310 600 Blood Product 393 509 Platelet Irr Pheresis 2 199 Acda Unit [id number] Platelet Irr Pheresis 393 Acda Unit [id number] Rc Irr As1 Unit 310 [id number] Output: Urine 1150 3300 2250 Other: Voiding Method Toilet Toilet # Voids 1 1 - Exam GENERAL EXAM: Alert, active, 74-year-old white female, on 3 L of oxygen pulse ox of 96% comfortable in no apparent distress. Patient appears to be generally weak and tired, mildly dyspneic with conversation HEAD: Normocephalic/atraumatic. EYES: Normal reaction of pupils, equal size. Conjunctiva pink, sclera white. NOSE: Clear with pink turbinates. THROAT: No erythema or exudates. NECK: No masses, no JVD, no thyroid enlargement, no adenopathy. CHEST: No chest wall deformity. Symmetrical expansion. LUNGS: Equal air entry with no crackles, wheeze, rhonchi or dullness. Diminished breath sounds at the bases CVS: Regular rate and rhythm, normal S1 and S2, no gallops, systolic murmur auscultated throughout the precordium, loudest in the right sternal border, second intercostal space, no rubs ABDOMEN: Soft, nontender. No hepatosplenomegaly, normal bowel sounds, no guarding or rigidity. EXTREMITIES: No clubbing, no edema, no cyanosis, 2+ pulses and upper and lower extremities. MUSCULOSKELETAL: Muscle strength and tone normal. SPINE: No scoliosis or deformity SKIN: No rashes CENTRAL NERVOUS SYSTEM: Alert and oriented -3. No focal deficits, tone is normal in all 4 extremities. PSYCHIATRIC: Alert and oriented -3. Appropriate affect. Intact judgment and insight. - Labs CBC & Chem 7: 10/04/19 06:57 10/04/19 06:57 Labs: Abnormal Lab Results - Last 24 Hours (Table) 10/01/19 10/04/19 10/04/19 Range/Units 10:17 06:57 06:57 WBC 0.4 L* (3.8-10.6) k/uL RBC 2.25 L (3.80-5.40) m/uL Hgb 6.7 L* (11.4-16.0) gm/dL Hct 21.1 L (34.0-46.0) % Plt Count 7 L* (150-450) k/uL Sodium 135 L (137-145) mmol/L BUN 41 H (7-17) mg/dL Creatinine 2.35 H (0.52-1.04) mg/dL Glucose 107 H (74-99) mg/dL Calcium 8.2 L (8.4-10.2) mg/dL Crossmatch See Detail Microbiology - Last 24 Hours (Table) 09/27/19 18:27 Blood Culture - Final Blood No Growth after 144 hours Assessment and Plan Plan: Assessment: 1 Acute hypoxemic respiratory failure secondary to bilateral effusions/atelectasis secondary to fluid volume overload 2 Acute myeloid leukemia. Currently on venetoclax and Dacogen 3 Pancytopenia secondary to above, status post 3 units packed red blood cells this admission. 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 6 History of hypertension 7 Prior history of ITP with observation only 8 Valvular heart disease with mild aortic stenosis, and preserved LV function according to recent echocardiogram that must of taken place on an outpatient basis Plan: Recommend additional dose of IV Lasix, patient did receive additional dose of IV Lasix per nephrology, follow-up chest x-ray in the morning, will obtain pro- calcitonin and proBNP. Repeat labs in the morning including CBC and BMP, accurate weight, and accurate intake and output. I performed a history & physical examination of the patient and discussed their management with my nurse practitioner, Silvina Hardwick. I reviewed the nurse practitioner's note and agree with the documented findings and plan of care. Lung sounds are positive for diminished breath sounds. The findings and the impression was discussed with the patient. I attest to the documentation by the nurse practitioner. Time with Patient: Less than 30
[2019-10-04] MEDS: MAG HYDROX/AL HYDROX/SIMETH 30 ML, LIDOCAINE VISCOUS 30 ML, diphenhydrAMINE ELIXIR 75 M... PO SCH ×8 (16:18→21:43)
[2019-10-04] MEDS: DEXAMETHASONE ORAL 4 MG/ML VIAL PO SCH (16:18)
--- NOTE | 2019-10-04 16:19 | PN ---
PROGRESS NOTE Patient is seen for followup for chronic kidney disease. She was admitted for chemotherapy for AML. Renal function has remained fairly stable. Patient has been receiving IV Lasix on and off. This morning she is complaining of weakness. Blood pressure was 172/77, heart rate 90 per minute, she is afebrile. Examination of the heart S1, S2. Examination of the lungs, decreased breath sounds at bases. Abdomen is soft, nontender. Examination of the lower extremities shows edema trace bilaterally. LOAN CLERK exam is grossly intact. LABS: Show sodium of 135, potassium 3.5, chloride 101, BUN 41, creatinine 2.35, hemoglobin 6.7, white cell count 0.4, platelet count 7000. ASSESSMENT: 1. Chronic kidney disease secondary to nephrosclerosis. Renal function is stable. 2. Mild volume overload. Will repeat a dose of IV Lasix today and maintain patient on oral diuretics. 3. AML, status post chemotherapy. 4. Pancytopenia secondary to AML and chemotherapy. 5. Metabolic acidosis, now resolved. PLAN: Repeat IV Lasix today. Maintain on a scheduled dose of oral Lasix. MMODL / IJN: [id number] /
--- NOTE | 2019-10-04 16:45 | P.PN ---
Subjective Progress Note Date: 10/04/19 Principal diagnosis: Hyperkalemia Patient was seen and examined. No acute events overnight. Hemoglobin decreases 6.7 1 unit PRBC ordered. Potassium within normal limits this morning. Platelet count down to 7, 1 unit ordered. Oxygen requirements decreased to 3 L nasal cannula. Patient reports shortness of breath especially with exertion, worsened from yesterday. Also has lesions on her lip complains of sores inside of her mouth. Swelling in her left upper extremity has improved since yesterday. She denies any chest pain, or palpitations. No nausea or vomiting. No fever or chills. Objective - Vital Signs Vital signs: Vital Signs Temp 98.1 F 10/04/19 14:35 Pulse 83 10/04/19 14:35 Resp 18 10/04/19 14:35 BP 168/74 10/04/19 14:35 Pulse Ox 99 10/04/19 13:03 Intake & Output 10/03/19 10/04/19 10/04/19 18:59 06:59 18:59 Intake Total 513 1310 1209 Output Total 1150 3300 2250 Balance -637 -1990 -1041 Weight 45.767 kg Intake: Intake, IV Titration 100 Amount Cefepime 2 gm In Sodium 100 Chloride 0.9% 100 ml @ 200 mls/hr IVPB Q24HR [facility] Rx#:[id number] Oral 120 1310 600 Blood Product 393 509 Platelet Irr Pheresis 2 199 Acda Unit [id number] Platelet Irr Pheresis 393 Acda Unit [id number] Rc Irr As1 Unit 310 [id number] Output: Urine 1150 3300 2250 Other: Voiding Method Toilet Toilet # Voids 1 1 - Exam General: [non toxic, appears pale], [no distress], [appears at stated age] Derm: [warm], [dry] herpetic lesions on the left, Head: [atraumatic], [normocephalic], [symmetric] Eyes: [EOMI], [no lid lag], [anicteric sclera] Mouth: [no lip lesion], [mucus membranes moist] Cardiovascular: [S1S2 reg], [systolic murmur], [positive DP pulse bilateral], Lungs: [Decreased breath sounds bilateral], [no rhonchi, no rales] , [no accessory muscle use] Abdominal: [soft], [ nontender to palpation], [no guarding], [no appreciable organomegaly] Ext: [no gross muscle atrophy], [no edema], [no contractures], [left upper extremity generalized swelling with intact radial pulse] Neuro: [no focal neuro deficits] Psych: [Alert], [oriented], [appropriate affect] - Labs CBC & Chem 7: 10/04/19 06:57 10/04/19 06:57 Labs: Abnormal Lab Results - Last 24 Hours (Table) 10/01/19 10/04/19 10/04/19 Range/Units 10:17 06:57 06:57 WBC 0.4 L* (3.8-10.6) k/uL RBC 2.25 L (3.80-5.40) m/uL Hgb 6.7 L* (11.4-16.0) gm/dL Hct 21.1 L (34.0-46.0) % Plt Count 7 L* (150-450) k/uL Sodium 135 L (137-145) mmol/L BUN 41 H (7-17) mg/dL Creatinine 2.35 H (0.52-1.04) mg/dL Glucose 107 H (74-99) mg/dL Calcium 8.2 L (8.4-10.2) mg/dL Crossmatch See Detail Microbiology - Last 24 Hours (Table) 09/27/19 18:27 Blood Culture - Final Blood No Growth after 144 hours Assessment and Plan Assessment: Acute hypoxic respiratory failure from volume overload Herpes Mucositis Bradycardia with left bundle branch block Hyponatremia Left upper extremity swelling with thrombus Hypocalcemia and hypomagnesemia 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 Patient has received 2 units of PRBCs during this admission. She has also been aggressively hydrated. Supplemental O2 per NC to keep O2 saturation greater than 92%. One dose of Lasix 40 mg IV today. Start Lasix 40 mg by mouth daily starting tomorrow. Follow cardiology consultation. Follow pulmonology consultation. Likely from chemotherapy. Continue acyclovir. Decadron oral and stomatitis cocktail. Patient had heart rate in the 40s documented by nursing. Echocardiogram shows EF of 55%. Cardiology associates bradycardia to MELINDA. Cardiology will follow on as needed basis. Continue telemetry monitoring. Her hyponatremia is likely related to volume overload and is improving with diuresis. Now improved to 135. Received PICC line in the left upper extremity. Duplex has been reordered and there is a thrombus around the PICC line which was taken out. Oncology does not recommend anticoagulation at this time. Her calcium is 8.2, improved. Repeat CMP tomorrow morning. Her hemoglobin is 6.7. Platelet count 7. Likely related to AML. Plans: Has received 4 units PRBC so far. Total of 2 units platelets. Repeat CBC tomorrow morning. BUN 41, creatinine 2.35. Likely related to dehydration and poor oral intake. Plans: Restart calcitriol. Avoid nephrotoxins. Repeat BMP tomorrow morning. BP 168/74. Plans: Continue nifedipine. Monitor vitals, adjust medications as necessary. Plans: Resume Synthroid. Repeat TSH in 6 weeks. DVT prophylaxis: [SCD boots due to anemia] Discussed with: [Patient] Anticipated discharge: [2-3 days] Anticipated discharge place: [Home] A total of [35] minutes was spent on the care of this complex patient more than 50% of the time was spent in counseling and care coordination. Patient names her daughter decision maker if she can't make decisions for herself. Patient would like to be full code.
[2019-10-04] MEDS: MORPHINE SULFATE 4 MG/ML SYRINGE IVP PRN (19:36)
--- NOTE | 2019-10-04 22:22 | P.PN ---
Subjective Progress Note Date: 10/04/19 Principal diagnosis: Acute Leukemia Transfusion support today. No acute complaints overnight. Objective - Vital Signs Vital signs: Vital Signs Temp 98.1 F 10/04/19 14:35 Pulse 83 10/04/19 14:35 Resp 18 10/04/19 14:35 BP 168/74 10/04/19 14:35 Pulse Ox 99 10/04/19 13:03 Intake & Output 10/03/19 10/04/19 10/04/19 18:59 06:59 18:59 Intake Total 513 1310 1209 Output Total 1150 3300 1750 Balance -637 -1990 -541 Weight 45.767 kg Intake: Intake, IV Titration 100 Amount Cefepime 2 gm In Sodium 100 Chloride 0.9% 100 ml @ 200 mls/hr IVPB Q24HR [facility] Rx#:[id number] Oral 120 1310 600 Blood Product 393 509 Platelet Irr Pheresis 2 199 Acda Unit [id number] Platelet Irr Pheresis 393 Acda Unit [id number] Rc Irr As1 Unit 310 [id number] Output: Urine 1150 3300 1750 Other: Voiding Method Toilet Toilet # Voids 1 1 - Exam - Constitutional General appearance: Present: no acute distress - EENT Eyes: Present: EOMI ENT: Present: hearing grossly normal, normal oropharynx - Respiratory Respiratory: bilateral: diminished - Cardiovascular Rhythm: regular Heart sounds: normal: S1, S2 - Gastrointestinal General gastrointestinal: Present: normal bowel sounds, soft - Integumentary Integumentary: Present: normal - Neurologic Neurologic: Present: CNII-XII intact - Musculoskeletal Musculoskeletal: Present: generalized weakness, strength equal bilaterally - Psychiatric Psychiatric: Present: A&O x's 3, appropriate affect - Labs CBC & Chem 7: 10/04/19 06:57 10/04/19 06:57 Labs: Abnormal Lab Results - Last 24 Hours (Table) 10/01/19 10/04/19 10/04/19 Range/Units 10:17 06:57 06:57 WBC 0.4 L* (3.8-10.6) k/uL RBC 2.25 L (3.80-5.40) m/uL Hgb 6.7 L* (11.4-16.0) gm/dL Hct 21.1 L (34.0-46.0) % Plt Count 7 L* (150-450) k/uL Sodium 135 L (137-145) mmol/L BUN 41 H (7-17) mg/dL Creatinine 2.35 H (0.52-1.04) mg/dL Glucose 107 H (74-99) mg/dL Calcium 8.2 L (8.4-10.2) mg/dL Crossmatch See Detail Microbiology - Last 24 Hours (Table) 09/27/19 18:27 Blood Culture - Final Blood No Growth after 144 hours Assessment and Plan Plan: Assessment and Plan Dyspnea - improving This is felt to be due to fluid overload. - Echocardiogram Reviewed - Cardiology following The patient may need to resume IV hydration because of her underlying tumor lysis, depending on renal function. - Nephrology is following. Defer to Them for fluid management. Acute myeloid leukemia - Continue venetoclax. - Tumor lysis labs are improving - Renal function remains stagnant - stable Left upper extremity swelling - Picc associated DVT, status post removal of the line and replacement of the other side. - platelets prior Pancytopenia PRBC transfusion today. Continue to monitor counts with transfusion to keep hem oglobin greater than 7 and platelets greater than 10. Tumor lysis syndrome following antineoplastic drug therapy Tumor lysis labs are overall improved. Hydration had to be discontinued because of fluid overload. Continue to monitor. Physician Attest: I have completed the full history and physical and agree with above dictation, dictated as a scribe
[2019-10-05] MEDS: DEXAMETHASONE ORAL 4 MG/ML VIAL PO SCH ×4 (00:02→17:43)
[2019-10-05] MEDS: SALT AND SODA MOUTHWASH 1,000 ML PO SCH ×6 (02:48→21:49)
[2019-10-05] MEDS: LEVOTHYROXINE 88 MCG TAB PO SCH (05:57)
[2019-10-05 07:13] LABS: HCT 24.7 % (34.0-46.0); MCH 29.9 pg (25.0-35.0); MCHC 32.5 g/dL (31.0-37.0); MCV 92.1 fL (80.0-100.0); Mean Platelet Volume 12.5; RBC 2.68 m/uL (3.80-5.40); RDW 14.9 % (11.5-15.5)
[2019-10-05 07:16] LABS: Platelet Count 7 k/uL (150-450); WBC 0.5 k/uL (3.8-10.6)
[2019-10-05 07:28] LABS: Albumin 3.3 g/dL (3.5-5.0); Calcium 8.2 mg/dL (8.4-10.2); Magnesium 1.5 mg/dL (1.6-2.3); Potassium 4.1 mmol/L (3.5-5.1); Total Bilirubin 0.9 mg/dL (0.2-1.3); Total Protein 6.6 g/dL (6.3-8.2); Uric Acid 0.7 mg/dL (3.7-7.4)
[2019-10-05] MEDS: CEFEPIME 2 GM in SODIUM CHLORIDE 0.9% 100 ML IVPB SCH (08:01)
[2019-10-05] MEDS: PANTOPRAZOLE 40 MG/10 ML VIAL IVP SCH ×2 (08:02→20:24)
[2019-10-05] MEDS: CALCIUM ACETATE 667 MG TAB PO SCH ×2 (08:02→13:04)
[2019-10-05] MEDS: SENNOSIDES 8.6 MG TAB PO PRN (08:02)
[2019-10-05] MEDS: FUROSEMIDE 40 MG TAB PO SCH (08:03)
[2019-10-05] MEDS: ACYCLOVIR 200 MG CAP PO SCH ×2 (08:03→20:24)
[2019-10-05] MEDS: FOLIC ACID 1 MG TAB PO SCH (08:03)
[2019-10-05] MEDS: MAG HYDROX/AL HYDROX/SIMETH 30 ML, LIDOCAINE VISCOUS 30 ML, diphenhydrAMINE ELIXIR 75 M... PO SCH ×12 (08:05→21:47)
[2019-10-05] MEDS: ONDANSETRON 4 MG/2 ML VIAL IVP PRN (08:46)
--- NOTE | 2019-10-05 09:52 | XR ---
EXAMINATION TYPE: XR chest 1V portable DATE OF EXAM: 10/05/2019 COMPARISON: 10/03/2019 INDICATION: Dyspnea TECHNIQUE: Single frontal view of the chest is obtained. FINDINGS: The heart size is normal. The pulmonary vasculature is normal. Small bilateral pleural effusions are present. A right lower lobe infiltrate may be improving residua l remains at the diaphragm. PICC line enters on the right with the tip in the superior vena cava aquilino on. IMPRESSION: 1. Improving right lower lobe infiltrate. 2. Small bilateral pleural effusions, stable.
--- NOTE | 2019-10-05 10:02 | P.PN ---
Subjective Progress Note Date: 10/05/19 Principal diagnosis: Dyspnea, fluid overload This is a very pleasant 74-year-old female patient who follows with Dr. Boyd as her primary care provider. She has a history of gout, hypertension, hypothyroidism, stage IV kidney disease. She does follow with Dr. Chavez for a past history of ITP with observation only. Nondiagnostic bone marrow biopsies in August 2007 and February 2009. In early August she had presented to [facility] for progressive weakness and fatigue and was found to be severely anemic. She was transferred here to [facility] where she was worked up for her anemia. 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 She was subsequently discharged and had a PICC line placed on 09/24/2019. She was admitted here on 09/27/2019 for induction treatment with oral venetoclax and IV Dacogen for 5 days. She had been doing fairly well but did develop progressive shortness of breath. Abdominal ultrasound revealed evidence of splenomegaly, ascites. Initial chest x-ray showed mild fibrotic changes but no active acute pulmonary disease. Her oxygen requirements have increased she is currently at 10 L high flow nasal cannula. Today's chest x-ray shows bilateral pleural effusions. We are consulted for the same. She is seen on the oncology floor. She is currently awake and alert in no acute distress. Remains on 10 L high flow nasal cannula. She's currently afebrile. Hemodynamically stable. She did have emesis following her medication this morning. She is having some back discomfort. She has a loose nonproductive cough. She has received 3 units this admission. Blood culture revealing no growth. White count 0.5. Hemoglobin 7.7. Platelet count 13,000. Sodium 133. Potassium 3.9. Creatinine 2.33. She is on cefepime. IV diuretics switched to oral per cardiology. 0.9 normal saline at 50 MLS per hour. Echocardiogram revealed preserved left ventricular systolic function with ejection fraction of 55% and there was noted mild aortic stenosis. Ultrasound of the left upper extremity revealed thrombus around the insertion site of the PICC line, no flow detected around the PICC with debris noted around the left antecubital fossae. On 10/04/2019 patient seen in follow-up on medical oncology unit. She is awake and alert, but appears generally weak, and fatigued, on 3 L of oxygen a pulse ox of 96%, she is afebrile. Mild dyspnea is noted with conversation, lung sounds are diminished at the bases, no complaints of cough or congestion. Patient is on IV antibiotics, she is getting maintenance dose of oral Lasix daily, she received an extra dose of IV Lasix today per nephrology. She is maintaining negative fluid balance, she is in -1 L over the last 24 hours. Yesterday's chest x-ray showed bilateral pleural effusions and bibasilar infiltrated it with a diffuse interstitial pattern related to fluid overload, and CHF. Today's labs have been reviewed showing white blood cell, 0.4, hemoglobin of 6.7, sodium is 135, the rest of the left lites are within normal limits, renal profile is relatively stable with BUN of 41, and creatinine 2.35. Blood culture has shown no growth thus far. Still remains significantly neutropenic, and patient continues on supportive treatment. On 10/05/2019 patient seen in follow-up on medical oncology unit. She looks a little better today, although still very fatigued. Patient is on 10/2 L to 3 L of oxygen a pulse ox of 95%, afebrile, patient was given additional dose of Lasix yesterday, today's chest x-ray shows improving right lower lobe infiltrate and small bilateral pleural effusions that are stable in appearance. Patient has produced 3.8 L in urine output, and she is in 2.6 L negative fluid balance over the last 24 hours. Today's labs have been reviewed showing white count of 0.5, hemoglobin of 8.0, platelet count is 7, and patient will be transfused with platelets per medical oncology, sodium is 136, potassium is 4.1, chloride is 101, CO2 is 28, BUN is 47, creatinine is 2.34. Antibiotic coverage is cefepime, and acyclovir. No evidence of oropharyngeal thrush, blood culture has been negative since admission. No nausea vomiting or diarrhea. Appetite is poor, patient is generally weak, but looks to be in no acute distress. Objective - Vital Signs Vital signs: Vital Signs Temp 97.6 F 10/05/19 04:48 Pulse 91 10/05/19 04:48 Resp 16 10/05/19 04:48 BP 171/72 10/05/19 04:48 Pulse Ox 95 10/05/19 04:48 Intake & Output 10/04/19 10/05/19 10/05/19 18:59 06:59 18:59 Intake Total 1209 120 Output Total 3050 800 100 Balance -1841 -800 20 Weight 50.5 kg Intake: Intake, IV Titration 100 Amount Cefepime 2 gm In Sodium 100 Chloride 0.9% 100 ml @ 200 mls/hr IVPB Q24HR [facility] Rx#:[id number] Oral 600 120 Blood Product 509 Platelet Irr Pheresis 2 199 Acda Unit [id number] Rc Irr As1 Unit 310 [id number] Output: Urine 3050 800 Emesis 100 Other: Voiding Method Toilet # Voids 1 - Exam GENERAL EXAM: Alert, active, 74-year-old white female, on 3 L of oxygen pulse ox of 96% comfortable in no apparent distress. Patient appears to be generally weak and tired, less dyspneic with conversation HEAD: Normocephalic/atraumatic. EYES: Normal reaction of pupils, equal size. Conjunctiva pink, sclera white. NOSE: Clear with pink turbinates. THROAT: No erythema or exudates. NECK: No masses, no JVD, no thyroid enlargement, no adenopathy. CHEST: No chest wall deformity. Symmetrical expansion. LUNGS: Equal air entry with no crackles, wheeze, rhonchi or dullness. Diminished breath sounds at the bases CVS: Regular rate and rhythm, normal S1 and S2, no gallops, systolic murmur auscultated throughout the precordium, loudest in the right sternal border, second intercostal space, no rubs ABDOMEN: Soft, nontender. No hepatosplenomegaly, normal bowel sounds, no guarding or rigidity. EXTREMITIES: No clubbing, no edema, no cyanosis, 2+ pulses and upper and lower extremities. MUSCULOSKELETAL: Muscle strength and tone normal. SPINE: No scoliosis or deformity SKIN: No rashes CENTRAL NERVOUS SYSTEM: Alert and oriented -3. No focal deficits, tone is normal in all 4 extremities. PSYCHIATRIC: Alert and oriented -3. Appropriate affect. Intact judgment and insight. - Labs CBC & Chem 7: 10/05/19 06:48 10/05/19 06:48 Labs: Abnormal Lab Results - Last 24 Hours (Table) 10/01/19 10/04/19 10/05/19 Range/Units 10:17 15:06 06:48 WBC 0.5 L* (3.8-10.6) k/uL RBC 2.68 L (3.80-5.40) m/uL Hgb 8.0 L (11.4-16.0) gm/dL Hct 24.7 L (34.0-46.0) % Plt Count 7 L* (150-450) k/uL Sodium (137-145) mmol/L BUN (7-17) mg/dL Creatinine (0.52-1.04) mg/dL Uric Acid (3.7-7.4) mg/dL Calcium (8.4-10.2) mg/dL Magnesium (1.6-2.3) mg/dL AST (14-36) U/L ALT (4-34) U/L Albumin (3.5-5.0) g/dL Crossmatch See Detail See Detail 10/05/19 Range/Units 06:48 WBC (3.8-10.6) k/uL RBC (3.80-5.40) m/uL Hgb (11.4-16.0) gm/dL Hct (34.0-46.0) % Plt Count (150-450) k/uL Sodium 136 L (137-145) mmol/L BUN 47 H (7-17) mg/dL Creatinine 2.34 H (0.52-1.04) mg/dL Uric Acid 0.7 L (3.7-7.4) mg/dL Calcium 8.2 L (8.4-10.2) mg/dL Magnesium 1.5 L (1.6-2.3) mg/dL AST 52 H (14-36) U/L ALT 35 H (4-34) U/L Albumin 3.3 L (3.5-5.0) g/dL Crossmatch Assessment and Plan Plan: Assessment: 1 Acute hypoxemic respiratory failure secondary to bilateral effusions/atelectasis secondary to fluid volume overload 2 Acute myeloid leukemia. Currently on venetoclax and Dacogen 3 Pancytopenia secondary to above, status post 3 units packed red blood cells this admission. 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 6 History of hypertension 7 Prior history of ITP with observation only 8 Valvular heart disease with mild aortic stenosis, and preserved LV function according to recent echocardiogram that must of taken place on an outpatient basis Plan: Today's chest x-ray shows improvement in the appearance of right lower lobe infiltrate, and small bilateral pleural effusions. Continue with oral diuretics, antibiotics, echocardiogram is pending. ProBNP and broke acetone pending, microbiology data is negative, patient is afebrile, will continue with current medical treatment I performed a history & physical examination of the patient and discussed their management with my nurse practitioner, Silvina Hardwick. I reviewed the nurse practitioner's note and agree with the documented findings and plan of care. Lung sounds are positive for diminished breath sounds. The findings and the impression was discussed with the patient. I attest to the documentation by the nurse practitioner. Time with Patient: Less than 30
[2019-10-05] MEDS: VENCLEXTA 100 MG PO SCH (10:15)
[2019-10-05] MEDS: VORICONAZOLE 200 MG PO SCH ×2 (10:16→20:24)
--- NOTE | 2019-10-05 15:03 | P.PN ---
Subjective Progress Note Date: 10/05/19 Principal diagnosis: Hyperkalemia Patient was seen and examined. No acute events overnight. Hemoglobin improved to 8 with one PRBC yesterday. Potassium within normal limits this morning. Platelet count down to 7, 1 unit ordered. Oxygen requirements decreased now on room air. Chest x-ray improved. Patient reports no improvement in her breathing. Also has lesions on her lip complains of sores inside of her mouth. Swelling in her left upper extremity has improved since yesterday. She denies any chest pain, or palpitations. No nausea or vomiting. No fever or chills. Objective - Vital Signs Vital signs: Vital Signs Temp 97.8 F 10/05/19 12:22 Pulse 85 10/05/19 12:22 Resp 18 10/05/19 12:22 BP 163/68 10/05/19 12:22 Pulse Ox 94 L 10/05/19 12:22 Intake & Output 10/04/19 10/05/19 10/05/19 18:59 06:59 18:59 Intake Total 1209 321 Output Total 3050 800 100 Balance -1841 -800 221 Weight 50.5 kg Intake: Intake, IV Titration 100 Amount Cefepime 2 gm In Sodium 100 Chloride 0.9% 100 ml @ 200 mls/hr IVPB Q24HR [facility] Rx#:[id number] Oral 600 120 Blood Product 509 201 Platelet Irr Pheresis 2 201 Acda Unit [id number] Platelet Irr Pheresis 2 199 Acda Unit [id number] Rc Irr As1 Unit 310 [id number] Output: Urine 3050 800 Emesis 100 Other: Voiding Method Toilet # Voids 1 - Exam General: [non toxic, appears pale], [no distress], [appears at stated age] Derm: [warm], [dry] herpetic lesions on the left, Head: [atraumatic], [normocephalic], [symmetric] Eyes: [EOMI], [no lid lag], [anicteric sclera] Mouth: [no lip lesion], [mucus membranes moist] Cardiovascular: [S1S2 reg], [systolic murmur], [positive DP pulse bilateral], Lungs: [Decreased breath sounds bilateral], [no rhonchi, no rales] , [no accessory muscle use] Abdominal: [soft], [ nontender to palpation], [no guarding], [no appreciable organomegaly] Ext: [no gross muscle atrophy], [no edema], [no contractures], [left upper extremity generalized swelling with intact radial pulse] Neuro: [no focal neuro deficits] Psych: [Alert], [oriented], [appropriate affect] - Labs CBC & Chem 7: 10/05/19 06:48 10/05/19 06:48 Labs: Abnormal Lab Results - Last 24 Hours (Table) 10/04/19 10/05/19 10/05/19 Range/Units 15:06 06:48 06:48 WBC 0.5 L* (3.8-10.6) k/uL RBC 2.68 L (3.80-5.40) m/uL Hgb 8.0 L (11.4-16.0) gm/dL Hct 24.7 L (34.0-46.0) % Plt Count 7 L* (150-450) k/uL Sodium 136 L (137-145) mmol/L BUN 47 H (7-17) mg/dL Creatinine 2.34 H (0.52-1.04) mg/dL Uric Acid 0.7 L (3.7-7.4) mg/dL Calcium 8.2 L (8.4-10.2) mg/dL Magnesium 1.5 L (1.6-2.3) mg/dL AST 52 H (14-36) U/L ALT 35 H (4-34) U/L Albumin 3.3 L (3.5-5.0) g/dL Crossmatch See Detail Assessment and Plan Assessment: Acute hypoxic respiratory failure from volume overload Herpes Mucositis Bradycardia with left bundle branch block Hyponatremia Left upper extremity swelling with thrombus Hypocalcemia and hypomagnesemia 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 Patient has received 4 units of PRBCs during this admission along with 3 units of platelets. She has also been aggressively hydrated. Supplemental O2 per NC to keep O2 saturation greater than 92%. Start Lasix 40 mg by mouth daily starting today. Follow cardiology consultation. Follow pulmonology consultation. Likely from chemotherapy. Continue acyclovir. Decadron oral and stomatitis cocktail. Patient had heart rate in the 40s documented by nursing. Echocardiogram shows EF of 55%. Cardiology associates bradycardia to MELINDA. Cardiology will follow on as needed basis. Continue telemetry monitoring. Her hyponatremia is likely related to volume overload and is improving with diuresis. Now improved to 136. Received PICC line in the left upper extremity. Duplex has been reordered and there is a thrombus around the PICC line which was taken out. Oncology does not recommend anticoagulation at this time. Her calcium is 8.2, improved. Repeat CMP tomorrow morning. Her hemoglobin is 8. Platelet count 7. Likely related to AML. Plans: Has received 4 units PRBC so far. Total of 2 units platelets. Plans for platelets today. Repeat CBC tomorrow morning. BUN 47, creatinine 2.34. Likely related to dehydration and poor oral intake. Plans: Restart calcitriol. Avoid nephrotoxins. Repeat BMP tomorrow morning. BP 163/68. Plans: Continue nifedipine. Monitor vitals, adjust medications as necessary. Plans: Resume Synthroid. Repeat TSH in 6 weeks.
--- NOTE | 2019-10-05 15:27 | PN ---
PROGRESS NOTE DATE OF SERVICE: 10/05/2019 REASON FOR FOLLOWUP: Febrile neutropenia. INTERVAL HISTORY: The patient is currently afebrile, patient is breathing comfortably. Currently off nasal cannula oxygen. Denies having any chest pain. She still complaints of shortness of breath, but no cough, did have an episode of vomiting but no abdominal pain, no diarrhea. PHYSICAL EXAMINATION: Blood pressure 130/68 with a pulse of 85, temperature 97.8. She is 94% on room air. General description is an elderly female, lying in bed in no distress. RESPIRATORY SYSTEM: Unlabored breathing, clear to auscultation anteriorly. HEART: S1, S2. Regular rhythm and rhythm. ABDOMEN: Soft, no tenderness. LABS: Hemoglobin 8, white count 0.5, creatinine is 2.34. Chest x-ray improving right lower lobe infiltrate. DIAGNOSTIC IMPRESSION AND PLAN: Patient with febrile neutropenia with concern for possible pneumonia. X-ray did show overall improvement. Patient to continue with cefepime and monitor clinical course closely. MMODL / IJN: [id number] /
--- NOTE | 2019-10-05 15:50 | PN ---
PROGRESS NOTE Patient is seen for followup for chronic kidney disease. Patient's renal function has been stable. This morning she is complaining of nausea and was not able to eat much. PHYSICAL EXAMINATION: On examination, blood pressure is 155/71, heart rate 83 per minute. She is afebrile. EXAMINATION OF THE HEART: S1 and S2. EXAMINATION OF LUNGS: Decreased breath sounds at bases. ABDOMEN: Soft, non-tender. Examination of lower extremities shows no significant edema. Trace ankle edema is noted. SURFACE GRINDER TENDER exam is grossly intact. LABS: Labs show sodium 136, potassium 4.1, chloride 101, BUN 47, creatinine 2.34. White cell count was 0.5, hemoglobin 8.0, platelet count 7000. ASSESSMENT: 1. Chronic kidney disease, stage 4, secondary to nephrosclerosis, currently stable. 2. AML, status post chemotherapy. 3. Pancytopenia secondary to AML and chemotherapy. 4. Metabolic acidosis, resolved. Sodium bicarb has been discontinued. 5. Mild hypervolemia, maintained on oral Lasix. PLAN: Encourage increased oral intake. Monitor renal function periodically. Continue with the Rocaltrol. Hold PhosLo, as phosphorus is low at 3 and patient is not eating much. MMODL / IJN: [id number] /
--- NOTE | 2019-10-05 19:49 | P.PN ---
Subjective Progress Note Date: 10/05/19 Principal diagnosis: AML, induction chemo In f/u pt is feeling frustrated, she is weak, SOB with any exertion, mouth is sore, nausea, Vx1 today and her back hurts from laying in bed. She denies fever, purulent sputum, bleeding, abd pain, dysuria, diarrhea or constipation. Objective - Vital Signs Vital signs: Vital Signs Temp 97.8 F 10/05/19 12:22 Pulse 85 10/05/19 12:22 Resp 18 10/05/19 12:22 BP 163/68 10/05/19 12:22 Pulse Ox 94 L 10/05/19 12:22 Intake & Output 10/05/19 10/05/19 10/06/19 06:59 18:59 06:59 Intake Total 1141 Output Total 800 1500 Balance -800 -359 Weight 50.5 kg Intake: Intake, IV Titration 100 Amount Cefepime 2 gm In Sodium 100 Chloride 0.9% 100 ml @ 200 mls/hr IVPB Q24HR [facility] Rx#:[id number] Oral 840 Blood Product 201 Platelet Irr Pheresis 2 201 Acda Unit [id number] Output: Urine 800 1400 Emesis 100 Other: Voiding Method Toilet # Voids 2 - Constitutional General appearance: Present: average body habitus, cooperative, mild distress - EENT EENT Comment(s): moderate mucositis Eyes: Present: anicteric sclerae, EOMI ENT: Present: hearing grossly normal, pharyngeal erythema - Respiratory Respiratory: bilateral: CTA, other (weak inspiratory effort) - Cardiovascular Rhythm: regular Heart sounds: normal: S1, S2 Abnormal Heart Sounds: Present: systolic murmur - Peripheral edema leg Peripheral Edema: bilateral: None - Gastrointestinal General gastrointestinal: Present: normal bowel sounds, soft. Absent: absent bowel sounds, decreased bowel sounds, distended, hepatomegaly, hyperactive bowel sounds, organomegaly, rigid, scaphoid, splenomegaly, tenderness, umbilical hernia, ventral hernia - Integumentary Integumentary: Present: pale - Neurologic Neurologic: Present: CNII-XII intact - Musculoskeletal Musculoskeletal: Present: generalized weakness - Psychiatric Psychiatric: Present: A&O x's 3, appropriate affect (improving RLL infiltrate, bilateral pleural effusions stable), intact judgment & insight - Labs CBC & Chem 7: 10/05/19 06:48 10/05/19 06:48 Labs: Abnormal Lab Results - Last 24 Hours (Table) 10/04/19 10/05/19 10/05/19 Range/Units 15:06 06:48 06:48 WBC 0.5 L* (3.8-10.6) k/uL RBC 2.68 L (3.80-5.40) m/uL Hgb 8.0 L (11.4-16.0) gm/dL Hct 24.7 L (34.0-46.0) % Plt Count 7 L* (150-450) k/uL Sodium 136 L (137-145) mmol/L BUN 47 H (7-17) mg/dL Creatinine 2.34 H (0.52-1.04) mg/dL Uric Acid 0.7 L (3.7-7.4) mg/dL Calcium 8.2 L (8.4-10.2) mg/dL Magnesium 1.5 L (1.6-2.3) mg/dL AST 52 H (14-36) U/L ALT 35 H (4-34) U/L Albumin 3.3 L (3.5-5.0) g/dL Procalcitonin (0.02-0.09) ng/mL Crossmatch See Detail 10/05/19 Range/Units 06:48 WBC (3.8-10.6) k/uL RBC (3.80-5.40) m/uL Hgb (11.4-16.0) gm/dL Hct (34.0-46.0) % Plt Count (150-450) k/uL Sodium (137-145) mmol/L BUN (7-17) mg/dL Creatinine (0.52-1.04) mg/dL Uric Acid (3.7-7.4) mg/dL Calcium (8.4-10.2) mg/dL Magnesium (1.6-2.3) mg/dL AST (14-36) U/L ALT (4-34) U/L Albumin (3.5-5.0) g/dL Procalcitonin 2.60 H (0.02-0.09) ng/mL Crossmatch Assessment and Plan (1) Acute myeloid leukemia Narrative/Plan: Admitted for induction treatment with oral venetoclax and IV Dacogen 5 days. Supportive medications ordered for side effects. Preventative medications ordered. DVT prophylaxis with SCDs while in bed and early/frequent ambulation Ambulation ordered. Daily labs [place] fluids both IV and oral. Strict I's and O's to avoid fluid overload. Bone marrow biopsy and aspirate 21 days after initiation of treatment to evaluate effectiveness of treatment. Current Visit: Yes Status: Acute Priority: High Code(s): C92.00 - ACUTE MYELOBLASTIC LEUKEMIA, NOT HAVING ACHIEVED REMISSION SNOMED Code(s): 72702449 (2) Pancytopenia Narrative/Plan: No L-KBM-utadptn is not confirmed AML remission Transfuse for hemoglobin less than 7 or symptomatic. Hgb 8, no transfusion today Transfused for platelet count less than 10,000, unless symptomatic. Transfusion today, platelets 7,000. Irradiated blood products only Current Visit: Yes Status: Acute Priority: High Code(s): D61.818 - OTHER PANCYTOPENIA SNOMED Code(s): 482698436 (3) Tumor lysis syndrome following antineoplastic drug therapy Current Visit: Yes Status: Resolved Priority: High Code(s): E88.3 - TUMOR LYSIS SYNDROME; T45.1X5A - ADVERSE EFFECT OF ANTINEOPLASTIC AND IMMUNOSUP DRUGS, INIT SNOMED Code(s): 285254685 (4) Left upper extremity swelling Narrative/Plan: Clot at PICC line, line removed. No anticoagulation due to extremely low plt Current Visit: Yes Status: Acute Priority: High Code(s): M79.89 - OTHER SPECIFIED SOFT TISSUE DISORDERS SNOMED Code(s): 469662425 Plan: Had a long talk with pt, she is frustrated with her condition and situation. We discussed what things we can change and what we cannot. I cannot say how fast her counts would recover if she were to stop treatment, or if they will recover at all. It is not certain at this time what treatment has done to the leukemia. I reminded her that she is not quite half way (she is 8 days into 1st 21 day cycle). I told her that she can choose if she wants to continue with treatment and we will support her decision. Together we made some changes to her meds and diet to see if she can be more comfortable. We will talk again in the morning and if she is not better or worse she can stop. She verbalized understanding Spoke to daughter and told her the same Discussed case with RN.
[2019-10-06] MEDS: DEXAMETHASONE ORAL 4 MG/ML VIAL PO SCH ×4 (00:49→18:02)
[2019-10-06] MEDS: SALT AND SODA MOUTHWASH 1,000 ML PO SCH ×6 (02:21→23:00)
[2019-10-06] MEDS: LEVOTHYROXINE 88 MCG TAB PO SCH (05:45)
[2019-10-06] MEDS: CEFEPIME 2 GM in SODIUM CHLORIDE 0.9% 100 ML IVPB SCH (08:14)
[2019-10-06] MEDS: FUROSEMIDE 40 MG TAB PO SCH (08:15)
[2019-10-06] MEDS: PANTOPRAZOLE 40 MG/10 ML VIAL IVP SCH ×2 (08:15→20:00)
[2019-10-06] MEDS: ACYCLOVIR 200 MG CAP PO SCH ×2 (08:15→20:00)
[2019-10-06] MEDS: MAG HYDROX/AL HYDROX/SIMETH 30 ML, LIDOCAINE VISCOUS 30 ML, diphenhydrAMINE ELIXIR 75 M... PO SCH ×12 (08:16→22:00)
[2019-10-06] MEDS: FOLIC ACID 1 MG TAB PO SCH (08:16)
[2019-10-06] MEDS ORDERED: VANCOMYCIN 750 MG in SODIUM CHLORIDE 0.9% 250 ML IVPB ONE ×2 (12:52→19:00)
[2019-10-06] MEDS ORDERED: VANCOMYCIN IV PER PHARMACY 1 EACH MISC MISCELLANE PRN ×2 (12:53→18:57)
--- NOTE | 2019-10-06 12:55 | P.PN ---
Subjective Progress Note Date: 10/06/19 Principal diagnosis: Hyperkalemia Patient was seen and examined. No acute events overnight. CBC and CMP pending this morning. Oxygen requirements decreased now on room air. She continues to report shortness of breath especially with exertion. She denies any cough. Patient appears to be depressed with flat affect. Agreeable to continuing chemotherapy. Also has lesions on her lip complains of sores inside of her mouth. She denies any chest pain, or palpitations. No nausea or vomiting. No fever or chills. Objective - Vital Signs Vital signs: Vital Signs Temp 98 F 10/06/19 05:00 Pulse 104 H 10/06/19 05:00 Resp 18 10/06/19 05:00 BP 149/79 10/06/19 05:00 Pulse Ox 93 L 10/06/19 05:00 Intake & Output 10/05/19 10/06/19 10/06/19 18:59 06:59 18:59 Intake Total 1141 960 Output Total 1500 500 Balance -359 460 Weight 50.5 kg Intake: Intake, IV Titration 100 Amount Cefepime 2 gm In Sodium 100 Chloride 0.9% 100 ml @ 200 mls/hr IVPB Q24HR [facility] Rx#:[id number] Oral 840 960 Blood Product 201 Platelet Irr Pheresis 2 201 Acda Unit [id number] Output: Urine 1400 500 Emesis 100 Other: Voiding Method Toilet # Voids 2 - Exam General: [non toxic, appears pale], [no distress], [appears at stated age] Derm: [warm], [dry] herpetic lesions on the left, Head: [atraumatic], [normocephalic], [symmetric] Eyes: [EOMI], [no lid lag], [anicteric sclera] Mouth: [no lip lesion], [mucus membranes moist] Cardiovascular: [S1S2 reg], [systolic murmur], [positive DP pulse bilateral], Lungs: [Decreased breath sounds bilateral], [no rhonchi, no rales] , [no accessory muscle use] Abdominal: [soft], [ nontender to palpation], [no guarding], [no appreciable organomegaly] Ext: [no gross muscle atrophy], [no edema], [no contractures], [left upper extremity generalized swelling with intact radial pulse] Neuro: [no focal neuro deficits] Psych: [Alert], [oriented], [appropriate affect] - Labs CBC & Chem 7: 10/05/19 06:48 10/05/19 06:48 Labs: Abnormal Lab Results - Last 24 Hours (Table) 10/05/19 Range/Units 06:48 Procalcitonin 2.60 H (0.02-0.09) ng/mL Assessment and Plan Assessment: Acute hypoxic respiratory failure from volume overload versus pneumonia Herpes Mucositis Bradycardia with left bundle branch block Hyponatremia Left upper extremity swelling with thrombus Hypocalcemia and hypomagnesemia Severe anemia with pancytopenia related to AML Acute kidney injury on probable chronic kidney disease Hypertension Subclinical hypothyroidism Resolved: Hyperkalemia Chest x-ray showing bilateral pleural effusions and right lower lobe infiltrate with elevated pro-calcitonin. Patient has received 4 units of PRBCs during this admission along with 3 units of platelets. She has also been aggressively hydrated. Supplemental O2 per NC to keep O2 saturation greater than 92%. Continue Lasix 40 mg by mouth daily. Continue cefepime IV for possible pneumonia and follow sputum culture. Start vancomycin for coverage of MRSA g iven her neutropenia. Follow cardiology consultation. Follow pulmonology consultation. Likely from chemotherapy. Continue acyclovir. Decadron oral and stomatitis cocktail. Patient had heart rate in the 40s documented by nursing. Echocardiogram shows EF of 55%. Cardiology associates bradycardia to MELINDA. Cardiology will follow on as needed basis. Continue telemetry monitoring. Her hyponatremia is likely related to volume overload and is improving with diuresis. Now improved to 136. CMP pending this morning. Received PICC line in the left upper extremity. Duplex has been reordered and there is a thrombus around the PICC line which was taken out. Oncology does not recommend anticoagulation at this time. Her calcium is 8.2, improved. CMP pending this morning. Her hemoglobin is 8. Platelet count 7. Likely related to AML. Plans: Has rece ived 4 units PRBC so far. Total of 2 units platelets. CBC pending this morning. BUN 47, creatinine 2.34. Likely related to dehydration and poor oral intake. Plans: Restart calcitriol. Avoid nephrotoxins. CMP pending this morning. BP 149/79. Plans: Continue nifedipine. Monitor vitals, adjust medications as necessary. Plans: Resume Synthroid. Repeat TSH in 6 weeks.
[2019-10-06] MEDS: VENCLEXTA 100 MG PO SCH (12:59)
[2019-10-06] MEDS: VORICONAZOLE 200 MG PO SCH (12:59)
[2019-10-06 13:11] LABS: HCT 23.8 % (34.0-46.0); HGB 7.7 gm/dL (11.4-16.0); MCH 30.1 pg (25.0-35.0); MCHC 32.3 g/dL (31.0-37.0); MCV 93.2 fL (80.0-100.0); Mean Platelet Volume 10.6; RBC 2.55 m/uL (3.80-5.40); RDW 15.1 % (11.5-15.5); WBC 0.4 k/uL (3.8-10.6)
[2019-10-06 13:12] LABS: Albumin 3.5 g/dL (3.5-5.0); Calcium 8.2 mg/dL (8.4-10.2); Potassium 3.9 mmol/L (3.5-5.1); Total Bilirubin 0.8 mg/dL (0.2-1.3); Total Protein 6.8 g/dL (6.3-8.2)
[2019-10-06 13:21] LABS: Platelet Count 12 k/uL (150-450)
[2019-10-06 14:03] LABS: Anisocytosis (M) Present; Poikilocytosis (M) Present
--- NOTE | 2019-10-06 14:49 | P.PN ---
Subjective Progress Note Date: 10/06/19 Principal diagnosis: AML, induction chemo In f/u pt is feeling just a little better then yesterday. Mouth soreness little less, mild N, no V today, she is using pain and antianxiety meds with fair relief of symptoms, she did get some sleep. Denies fever, bleeding, mild abd discomfort, no dysuria, diarrhea or constipation. Objective - Vital Signs Vital signs: Vital Signs Temp 97.8 F 10/06/19 13:00 Pulse 82 10/06/19 13:00 Resp 16 10/06/19 13:00 BP 173/77 10/06/19 13:00 Pulse Ox 97 10/06/19 13:00 Intake & Output 10/05/19 10/06/19 10/06/19 18:59 06:59 18:59 Intake Total 1141 960 480 Output Total 1500 500 Balance -359 460 480 Weight 50.5 kg Intake: Intake, IV Titration 100 Amount Cefepime 2 gm In Sodium 100 Chloride 0.9% 100 ml @ 200 mls/hr IVPB Q24HR [facility] Rx#:[id number] Oral 840 960 480 Blood Product 201 Platelet Irr Pheresis 2 201 Acda Unit [id number] Output: Urine 1400 500 Emesis 100 Other: Voiding Method Toilet # Voids 2 750 - Constitutional General appearance: Present: average body habitus, cooperative, no acute distress - EENT Eyes: Present: anicteric sclerae, EOMI ENT: Present: hearing grossly normal, pharyngeal erythema (less intense today) - Respiratory Respiratory: bilateral: CTA, diminished (bases) - Cardiovascular Rhythm: regular Heart sounds: normal: S1, S2 - Peripheral edema leg Peripheral Edema: bilateral: None - Gastrointestinal General gastrointestinal: Present: normal bowel sounds, soft, tenderness (RLQ, mild rebound, no ascites) - Integumentary Integumentary: Present: pale - Neurologic Neurologic: Present: CNII-XII intact - Musculoskeletal Musculoskeletal: Present: generalized weakness - Psychiatric Psychiatric: Present: A&O x's 3, appropriate affect, intact judgment & insight - Labs CBC & Chem 7: 10/06/19 12:00 10/06/19 12:00 Labs: Abnormal Lab Results - Last 24 Hours (Table) 07/07/20 07/08/20 07/08/20 Range/Units 06:48 12:00 12:00 WBC 0.4 L* (3.8-10.6) k/uL RBC 2.55 L (3.80-5.40) m/uL Hgb 7.7 L (11.4-16.0) gm/dL Hct 23.8 L (34.0-46.0) % Plt Count 12 L* D (150-450) k/uL Sodium 133 L (137-145) mmol/L Chloride 97 L (98-107) mmol/L BUN 55 H (7-17) mg/dL Creatinine 2.53 H (0.52-1.04) mg/dL Glucose 118 H (74-99) mg/dL Calcium 8.2 L (8.4-10.2) mg/dL AST 46 H (14-36) U/L Procalcitonin 2.60 H (0.02-0.09) ng/mL Assessment and Plan (1) Acute myeloid leukemia Narrative/Plan: Admitted for induction treatment with oral venetoclax and IV Dacogen 5 days. Supportive medications ordered for side effects. Preventative medications ordered. DVT prophylaxis with SCDs while in bed and early/frequent ambulation-due to low plt counts Ambulation ordered. Daily labs [place] fluids both IV and oral. Strict I's and O's to avoid fluid overload. Bone marrow biopsy and aspirate 21 days after initiation of treatment to evalua te effectiveness of treatment. Current Visit: Yes Status: Acute Priority: High Code(s): C92.00 - ACUTE MYELOBLASTIC LEUKEMIA, NOT HAVING ACHIEVED REMISSION SNOMED Code(s): 06264529 (2) Pancytopenia Narrative/Plan: No [id number] is not confirmed AML remission Transfuse for hemoglobin less than 7 or symptomatic. Hgb 7.7, no transfusion today Transfused for platelet count less than 10,000, unless symptomatic. No transfusion today, platelets 12,000. Irradiated blood products only Current Visit: Yes Status: Acute Priority: High Code(s): D61.818 - OTHER PANCYTOPENIA SNOMED Code(s): 270298640 (3) Tumor lysis syndrome following antineoplastic drug therapy Current Visit: Yes Status: Resolved Priority: High Code(s): E88.3 - TUMOR LYSIS SYNDROME; T45.1X5A - ADVERSE EFFECT OF ANTINEOPLASTIC AND IMMUNOSUP DRUGS, INIT SNOMED Code(s): 192075847 (4) Left upper extremity swelling Narrative/Plan: Clot at PICC line, line removed. No anticoagulation due to extremely low plt Current Visit: Yes Status: Acute Priority: High Code(s): M79.89 - OTHER SPECIFIED SOFT TISSUE DISORDERS SNOMED Code(s): 055095947 Plan: Had a long talk with pt, she is frustrated with her condition and situation. We discussed what things we can change and what we cannot. I cannot say how fast her counts would recover if she were to stop treatment, or if they will recover at all. It is not certain at this time what treatment has done to the leukemia. I reminded her that she is not quite half way (she is 8 days into 1st 21 day cycle). I told her that she can choose if she wants to continue with treatment and we will support her decision. Together we made some changes to her meds and diet to see if she can be more comfortable. We will talk again in the morning and if she is not better or worse she can stop. She verbalized understanding 10/06/19-We revisited our discussion from yesterday-as above. Pt was able to say she feels a little better with some easy changes in her care. All questions discussed to pt satisfaction. She is going to continue for now. Changed fungal prophylaxis from BID voriconazole to daily diflucan. Clear liquid diet Neph cont to follow for stable CKD
--- NOTE | 2019-10-06 15:33 | PN ---
PROGRESS NOTE DATE OF SERVICE: 10/06/2019 This is a very pleasant 74-year-old female patient with a known history of acute myelocytic leukemia, status post chemotherapy, who developed pancytopenia and shortness of breath. She is seen again today in followup in the oncology area. She is awake and alert, in no acute distress. No worsening shortness of breath, cough or congestion. PHYSICAL EXAMINATION: CONSTITUTIONAL: Alert and oriented 74-year-old female patient in no acute distress. HEAD: Normocephalic. Sclerae anicteric. NECK: Supple. Trachea midline. LUNGS: Her lungs are clear anteriorly and posteriorly. HEART: Regular S1, S2. ABDOMEN: Soft, nontender. Bowel sounds are present. EXTREMITIES: There is no peripheral edema. No clubbing. No cyanosis. Peripheral pulses are intact. NEUROLOGIC: Alert and oriented. No focal deficits. INVESTIGATIONS: Lab results reviewed. Medications reviewed. IMPRESSION: 1. Pancytopenia secondary to acute myelocytic leukemia, status post chemotherapy. 2. Multiple medical problems, as mentioned in our previous note. PLAN: The patient was seen and evaluated by Dr. Rivas. She is currently stable from the pulmonary standpoint. Oncology is following as well. Increase her activity as tolerated. Will continue to follow. I, the cosigning physician, performed a history and physical examination on the patient. Lung sounds are clear. Maintain oxygen saturations in the 90s on room air. I discussed the assessment and plan of care with my nurse practitioner, Lily Alegre. I attest to the above progress as dictated by her. MMODL / IJN: [id number] /
--- NOTE | 2019-10-06 16:00 | ECHOF ---
Referral Reason:murmur MEASUREMENTS -------- HEIGHT: 147.3 cm WEIGHT: 45.4 kg BP: 116/60 RVIDd: 3.8 cm (< 3.3) IVSd: 1.8 cm (0.6 - 1.1) LVIDd: 3.1 cm (3.9 - 5.3) LVPWd: 1.9 cm (0.6 - 1.1) IVSs: 2.2 cm LVIDs: 2.2 cm LVPWs: 1.5 cm LAESV Index (A-L): 40.78 ml/m Ao Diam: 3.3 cm (2.0 - 3.7) AV Cusp: 1.5 cm (1.5 - 2.6) MV EXCURSION: 12.108 mm (> 18.000) MV EF SLOPE: 73 mm/s (70 - 150) EPSS: 1.0 cm MV E Eliot: 0.94 m/s MV DecT: 261 ms MV A Eliot: 1.34 m/s MV E/A Ratio: 0.71 AV maxP.19 mmHg AV meanP.12 mmHg RAP: 5.00 mmHg RVSP: 34.18 mmHg FINDINGS -------- This was a technically adequate study. The left ventricular size is normal. There is severe concentric left ventricular hypertrophy. Ove rall left ventricular systolic function is normal with, an EF between 55 - 60 %. Left ventricular f illimg pressure cannot be estimated due to severe mitral annular calcification. Septal wall motion is delayed, and consistent with conduction delay/bundle branch block. The right ventricle is mild to moderately enlarged. LA is moderately dilated 34-39 ml/m2 The right atrium is mildly enlarged. Interatrial and interventricular septum intact. There is no evidence of aortic regurgitation. There is mild aortic stenosis present. Peak/mean gr adient across the Aortic Valve is 25.19mmHg / 13.12mmHg. Severe mitral annular calcification present. Moderate mitral regurgitation is present. Mild tricuspid regurgitation present. There is borderline pulmonary artery hypertension. The righ t ventricular systolic pressure, as measured by Doppler, is 34.18mmHg. There is no pulmonic regurgitation present. The aortic root size is normal. IVC Not well visulized. There is no pericardial effusion. CONCLUSIONS -------- 1. This was a technically adequate study. 2. The left ventricular size is normal. 3. There is severe concentric left ventricular hypertrophy. 4. Overall left ventricular systolic function is normal with, an EF between 55 - 60 %. 5. Left ventricular fillimg pressure cannot be estimated due to severe mitral annular calcification. 6. Septal wall motion is delayed, and consistent with conduction delay/bundle branch block. 7. The right ventricle is mild to moderately enlarged. 8. LA is moderately dilated 34-39 ml/m2 9. The right atrium is mildly enlarged. 10. Interatrial and interventricular septum intact. 11. There is no evidence of aortic regurgitation. 12. There is mild aortic stenosis present. 13. Peak/mean gradient across the Aortic Valve is 25.19mmHg / 13.12mmHg. 14. Severe mitral annular calcification present. 15. Moderate mitral regurgitation is present. 16. Mild tricuspid regurgitation present. 17. There is borderline pulmonary artery hypertension. 18. The right ventricular systolic pressure, as measured by Doppler, is 34.18mmHg. 19. There is no pulmonic regurgitation present. 20. The aortic root size is normal. 21. IVC Not well visulized. 22. There is no pericardial effusion. RADIOLOGY CT TECHNOLOGIST: Rain Mahajan RDCS
[2019-10-06] MEDS ORDERED: DEXAMETHASONE ORAL 4 MG/ML VIAL ONE (21:00)
[2019-10-06] MEDS ORDERED: ACYCLOVIR 200 MG CAP ONE (21:00)
[2019-10-06] MEDS ORDERED: PANTOPRAZOLE 40 MG/10 ML VIAL ONE (21:00)
[2019-10-06] MEDS: MORPHINE SULFATE 4 MG/ML SYRINGE IVP PRN (22:28)
--- NOTE | 2019-10-06 23:50 | PN ---
PROGRESS NOTE DATE OF SERVICE: 10/06/2019 REASON FOR FOLLOWUP: Febrile neutropenia, possible pneumonia. INTERVAL HISTORY: Patient is currently afebrile. The patient is breathing comfortably. Denies having any chest pain. Occasional cough. No nausea, no vomiting or any diarrhea. PHYSICAL EXAMINATION: Blood pressure 189/95 with a pulse of 89, temperature 97.1. She is 92% on room air. General description is an elderly female up in the bed in no distress. RESPIRATORY SYSTEM: Unlabored breathing with decreased breath sounds in the bases. No wheeze. HEART: S1, S2. Regular rate and rhythm. ABDOMEN: Soft, no tenderness. LABS: Hemoglobin is 7.7, white count 0.4, BUN of 55, creatinine is 2.53. DIAGNOSTIC IMPRESSION AND PLAN: Patient with fever and is admitted to the hospital for induction chemo for the acute myeloid leukemia. So far culture has been negative. Patient is currently covered with cefepime to continue. No need for vancomycin. Continue with supportive care. MMODL / IJN: [id number] /
[2019-10-07] MEDS ORDERED: DEXAMETHASONE ORAL 4 MG/ML VIAL ONE
[2019-10-07] MEDS: SALT AND SODA MOUTHWASH 1,000 ML PO SCH ×6 (03:00→23:08)
[2019-10-07] MEDS: LEVOTHYROXINE 88 MCG TAB PO SCH (06:12)
[2019-10-07] MEDS: DEXAMETHASONE ORAL 4 MG/ML VIAL PO SCH ×4 (06:12→17:36)
[2019-10-07 08:31] LABS: HCT 22.6 % (34.0-46.0); HGB 7.4 gm/dL (11.4-16.0); MCH 30.2 pg (25.0-35.0); MCHC 32.8 g/dL (31.0-37.0); Mean Platelet Volume 12.6; RBC 2.45 m/uL (3.80-5.40); RDW 14.8 % (11.5-15.5)
[2019-10-07 08:36] LABS: Platelet Count 11 k/uL (150-450); WBC 0.5 k/uL (3.8-10.6)
[2019-10-07] MEDS: ONDANSETRON 4 MG/2 ML VIAL IVP PRN (08:39)
[2019-10-07] MEDS: CEFEPIME 2 GM in SODIUM CHLORIDE 0.9% 100 ML IVPB SCH (08:40)
[2019-10-07] MEDS: PANTOPRAZOLE 40 MG/10 ML VIAL IVP SCH ×2 (08:41→20:00)
[2019-10-07] MEDS ORDERED: VANCOMYCIN 750 MG in SODIUM CHLORIDE 0.9% 250 ML IVPB ONE (09:00)
[2019-10-07] MEDS ORDERED: FLUCONAZOLE 100 MG TAB PO SCH ×2 (09:00)
[2019-10-07] MEDS: FUROSEMIDE 40 MG TAB PO SCH (09:25)
[2019-10-07] MEDS: ACYCLOVIR 200 MG CAP PO SCH ×2 (09:25→20:00)
[2019-10-07] MEDS: MAG HYDROX/AL HYDROX/SIMETH 30 ML, LIDOCAINE VISCOUS 30 ML, diphenhydrAMINE ELIXIR 75 M... PO SCH ×12 (09:26→21:48)
[2019-10-07] MEDS: VENCLEXTA 100 MG PO SCH (09:26)
[2019-10-07] MEDS: FOLIC ACID 1 MG TAB PO SCH (09:28)
--- NOTE | 2019-10-07 10:34 | P.PN ---
Subjective Progress Note Date: 10/07/19 Principal diagnosis: AML, induction chemo In f/u pt is feeling just a little better then yesterday. Mouth soreness stable, persistent, moderate N and V, she is using pain meds, antiemetics and antianxiety meds with little to no relief at this time. Denies fever, bleeding, mild abd discomfort, no dysuria, diarrhea or constipation. Objective - Vital Signs Vital signs: Vital Signs Temp 97.8 F 10/07/19 04:30 Pulse 66 10/07/19 04:30 Resp 16 10/07/19 04:30 BP 176/84 10/07/19 06:05 Pulse Ox 95 10/07/19 04:30 Intake & Output 10/06/19 10/07/19 10/07/19 18:59 06:59 18:59 Intake Total 720 Output Total 1650 1000 Balance -930 -1000 Weight 52.8 kg 51.8 kg Intake: Oral 720 Output: Urine 1650 1000 Other: Voiding Method Toilet # Voids 750 # Bowel Movements 1 1 - Constitutional General appearance: Present: average body habitus, cooperative, mild distress - EENT Eyes: Present: anicteric sclerae, EOMI ENT: Present: hearing grossly normal, pharyngeal erythema - Respiratory Respiratory: bilateral: CTA (weak inspiratory effort) - Cardiovascular Rhythm: regular Heart sounds: normal: S1, S2 Abnormal Heart Sounds: Absent: systolic murmur, diastolic murmur, rub, S3 Gallop, S4 Gallop, click, other - Peripheral edema leg Peripheral Edema: bilateral: None - Gastrointestinal General gastrointestinal: Present: normal bowel sounds, soft - Neurologic Neurologic: Present: CNII-XII intact - Musculoskeletal Musculoskeletal: Present: generalized weakness - Psychiatric Psychiatric Comment(s): flat affect Psychiatric: Present: A&O x's 3, intact judgment & insight - Labs CBC & Chem 7: 10/07/19 07:19 10/06/19 12:00 Labs: Abnormal Lab Results - Last 24 Hours (Table) 09/27/19 09/30/19 10/01/19 Range/Units 15:27 08:20 10:17 WBC (3.8-10.6) k/uL RBC (3.80-5.40) m/uL Hgb (11.4-16.0) gm/dL Hct (34.0-46.0) % Plt Count (150-450) k/uL Sodium (137-145) mmol/L Chloride (98-107) mmol/L BUN (7-17) mg/dL Creatinine (0.52-1.04) mg/dL Glucose (74-99) mg/dL Calcium (8.4-10.2) mg/dL AST (14-36) U/L ALT (4-34) U/L Total Protein (6.3-8.2) g/dL Albumin (3.5-5.0) g/dL TSH 4.870 H (0.465-4.680) mIU/L Crossmatch See Detail See Detail 10/03/19 10/04/19 10/06/19 Range/Units 06:40 15:06 12:00 WBC (3.8-10.6) k/uL RBC (3.80-5.40) m/uL Hgb (11.4-16.0) gm/dL Hct (34.0-46.0) % Plt Count (150-450) k/uL Sodium 136 L 133 L (137-145) mmol/L Chloride 97 L (98-107) mmol/L BUN 45 H 55 H (7-17) mg/dL Creatinine 2.31 H 2.53 H (0.52-1.04) mg/dL Glucose 118 H (74-99) mg/dL Calcium 8.0 L 8.2 L (8.4-10.2) mg/dL AST 61 H 46 H (14-36) U/L ALT 38 H (4-34) U/L Total Protein 6.2 L (6.3-8.2) g/dL Albumin 3.0 L (3.5-5.0) g/dL TSH (0.465-4.680) mIU/L Crossmatch See Detail 10/06/19 10/07/19 Range/Units 12:00 07:19 WBC 0.4 L* (3.8-10.6) k/uL RBC 2.55 L 2.45 L (3.80-5.40) m/uL Hgb 7.7 L 7.4 L (11.4-16.0) gm/dL Hct 23.8 L 22.6 L (34.0-46.0) % Plt Count 12 L* D (150-450) k/uL Sodium (137-145) mmol/L Chloride (98-107) mmol/L BUN (7-17) mg/dL Creatinine (0.52-1.04) mg/dL Glucose (74-99) mg/dL Calcium (8.4-10.2) mg/dL AST (14-36) U/L ALT (4-34) U/L Total Protein (6.3-8.2) g/dL Albumin (3.5-5.0) g/dL TSH (0.465-4.680) mIU/L Crossmatch Assessment and Plan (1) Acute myeloid leukemia Narrative/Plan: Admitted for induction treatment with oral venetoclax and IV Dacogen 5 days. Supportive medications ordered for side effects. Preventative medications ordered. DVT prophylaxis with SCDs while in bed and early/frequent ambulation-due to low plt counts Ambulation ordered. Daily labs [place] fluids both IV and oral. Strict I's and O's to avoid fluid overload. Bone marrow biopsy and aspirate 21 days after initiation of treatment to evaluate effectiveness of treatment. Holding antifungal medication to see if r/t symptoms/side effects Current Visit: Yes Status: Acute Priority: High Code(s): C92.00 - ACUTE MYELOBLASTIC LEUKEMIA, NOT HAVING ACHIEVED REMISSION SNOMED Code(s): 39168824 (2) Pancytopenia Narrative/Plan: No [id number] is not confirmed AML remission Transfuse for hemoglobin less than 7 or symptomatic. Hgb 7.4, no transfusion today Transfused for platelet count less than 10,000, unless symptomatic. Pending plt count this AM, Nursing will report and orders will be given if needed. Irradiated blood products only Current Visit: Yes Status: Acute Priority: High Code(s): D61.818 - OTHER PANCYTOPENIA SNOMED Code(s): 526866313 (3) Tumor lysis syndrome following antineoplastic drug therapy Current Visit: Yes Status: Resolved Priority: High Code(s): E88.3 - TUMOR LYSIS SYNDROME; T45.1X5A - ADVERSE EFFECT OF ANTINEOPLASTIC AND IMMUNOSUP DRUGS, INIT SNOMED Code(s): 544180220 (4) Left upper extremity swelling Narrative/Plan: Clot at PICC line, line removed. No anticoagulation due to extremely low plt Current Visit: Yes Status: Acute Priority: High Code(s): M79.89 - OTHER SPECIFIED SOFT TISSUE DISORDERS SNOMED Code(s): 381918669 (5) Hypertension Narrative/Plan: Asked Nursing to communicate with Nephrology re: resuming BP meds Current Visit: Yes Status: Acute Priority: High Code(s): I10 - ESSENTIAL (PRIMARY) HYPERTENSION SNOMED Code(s): 06521652 (6) Acute renal failure superimposed on chronic kidney disease Narrative/Plan: Renal function worse today. Pending Neph evaluation and exam today. Current Visit: Yes Status: Acute Priority: High Code(s): N17.9 - ACUTE KIDNEY FAILURE, UNSPECIFIED; N18.9 - CHRONIC KIDNEY DISEASE, UNSPECIFIED SNOMED Code(s): 242327980 Plan: DC daily diflucan. Cont clear liquid diet. Add Olanzapine for nausea. Doctor attests: I performed a history and physical examination of this patient, developed impression and plan of care. Discussed with dictator. I agree with dictators note, documented as a scribe.
[2019-10-07] MEDS ORDERED: LORazepam 2 MG/ML INJ IV PRN (10:35)
--- NOTE | 2019-10-07 10:50 | P.PN ---
Subjective Progress Note Date: 10/07/19 Principal diagnosis: Dyspnea, fluid overload This is a very pleasant 74-year-old female patient who follows with Dr. Boyd as her primary care provider. She has a history of gout, hypertension, hypothyroidism, stage IV kidney disease. She does follow with Dr. Chavez for a past history of ITP with observation only. Nondiagnostic bone marrow biopsies in August 2007 and February 2009. In early August she had presented to [facility] for progressive weakness and fatigue and was found to be severely anemic. She was transferred here to [facility] where she was worked up for her anemia. 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 She was subsequently discharged and had a PICC line placed on 09/24/2019. She was admitted here on 09/27/2019 for induction treatment with oral venetoclax and IV Dacogen for 5 days. She had been doing fairly well but did develop progressive shortness of breath. Abdominal ultrasound revealed evidence of splenomegaly, ascites. Initial chest x-ray showed mild fibrotic changes but no active acute pulmonary disease. Her oxygen requirements have increased she is currently at 10 L high flow nasal cannula. Today's chest x-ray shows bilateral pleural effusions. We are consulted for the same. She is seen on the oncology floor. She is currently awake and alert in no acute distress. Remains on 10 L high flow nasal cannula. She's currently afebrile. Hemodynamically stable. She did have emesis following her medication this morning. She is having some back discomfort. She has a loose nonproductive cough. She has received 3 units this admission. Blood culture revealing no growth. White count 0.5. Hemoglobin 7.7. Platelet count 13,000. Sodium 133. Potassium 3.9. Creatinine 2.33. She is on cefepime. IV diuretics switched to oral per cardiology. 0.9 normal saline at 50 MLS per hour. Echocardiogram revealed preserved left ventricular systolic function with ejection fraction of 55% and there was noted mild aortic stenosis. Ultrasound of the left upper extremity revealed thrombus around the insertion site of the PICC line, no flow detected around the PICC with debris noted around the left antecubital fossae. On 10/04/2019 patient seen in follow-up on medical oncology unit. She is awake and alert, but appears generally weak, and fatigued, on 3 L of oxygen a pulse ox of 96%, she is afebrile. Mild dyspnea is noted with conversation, lung sounds are diminished at the bases, no complaints of cough or congestion. Patient is on IV antibiotics, she is getting maintenance dose of oral Lasix daily, she received an extra dose of IV Lasix today per nephrology. She is maintaining negative fluid balance, she is in -1 L over the last 24 hours. Yesterday's chest x-ray showed bilateral pleural effusions and bibasilar infiltrated it with a diffuse interstitial pattern related to fluid overload, and CHF. Today's labs have been reviewed showing white blood cell, 0.4, hemoglobin of 6.7, sodium is 135, the rest of the left lites are within normal limits, renal profile is relatively stable with BUN of 41, and creatinine 2.35. Blood culture has shown no growth thus far. Still remains significantly neutropenic, and patient continues on supportive treatment. On 10/05/2019 patient seen in follow-up on medical oncology unit. She looks a little better today, although still very fatigued. Patient is on 10/2 L to 3 L of oxygen a pulse ox of 95%, afebrile, patient was given additional dose of Lasix yesterday, today's chest x-ray shows improving right lower lobe infiltrate and small bilateral pleural effusions that are stable in appearance. Patient has produced 3.8 L in urine output, and she is in 2.6 L negative fluid balance over the last 24 hours. Today's labs have been reviewed showing white count of 0.5, hemoglobin of 8.0, platelet count is 7, and patient will be transfused with platelets per medical oncology, sodium is 136, potassium is 4.1, chloride is 101, CO2 is 28, BUN is 47, creatinine is 2.34. Antibiotic coverage is cefepime, and acyclovir. No evidence of oropharyngeal thrush, blood culture has been negative since admission. No nausea vomiting or diarrhea. Appetite is poor, patient is generally weak, but looks to be in no acute distress. On 10/07/2019 patient seen in follow-up on medical oncology floor, she is resting comfortably in bed, appears to be in no acute distress. Reports no shortness of breath, room air pulse ox is 95%, lung sounds are clear, patient is afebrile, vital signs reviewed and patient is hypertensive, with systolic in the 160s to 180s range. No complaints of chest pain, no cough or congestion, her only complaint today is nausea and vomiting. Today's blood work has been reviewed, white blood cell count is still pending, hemoglobin is 7.4, no BMP. No new chest x-ray. Patient is on cefepime and vancomycin. Blood culture has shown no growth. She is on maintenance dose of oral Lasix on a daily basis. Nephrology is following. Patient is in -930 mL fluid balance over the last 24 hours. Objective - Vital Signs Vital signs: Vital Signs Temp 97.8 F 10/07/19 04:30 Pulse 66 10/07/19 04:30 Resp 16 10/07/19 04:30 BP 176/84 10/07/19 06:05 Pulse Ox 95 10/07/19 04:30 Intake & Output 10/06/19 10/07/19 10/07/19 18:59 06:59 18:59 Intake Total 720 Output Total 1650 1000 Balance -930 -1000 Weight 52.8 kg 51.8 kg Intake: Oral 720 Output: Urine 1650 1000 Other: Voiding Method Toilet Toilet # Voids 750 # Bowel Movements 1 1 - Exam GENERAL EXAM: Alert, active, 74-year-old white female, on room air, with a pulse ox of 95% comfortable in no apparent distress. Patient appears to be in no acute distress, she sits up in bed, looks comfortable, does report some nausea and vomiting. HEAD: Normocephalic/atraumatic. EYES: Normal reaction of pupils, equal size. Conjunctiva pink, sclera white. NOSE: Clear with pink turbinates. THROAT: No erythema or exudates. NECK: No masses, no JVD, no thyroid enlargement, no adenopathy. CHEST: No chest wall deformity. Symmetrical expansion. LUNGS: Equal air entry with no crackles, wheeze, rhonchi or dullness. Diminished breath sounds at the bases CVS: Regular rate and rhythm, normal S1 and S2, no gallops, systolic murmur auscultated throughout the precordium, loudest in the right sternal border, second intercostal space, no rubs ABDOMEN: Soft, nontender. No hepatosplenomegaly, normal bowel sounds, no guarding or rigidity. EXTREMITIES: No clubbing, no edema, no cyanosis, 2+ pulses and upper and lower extremities. MUSCULOSKELETAL: Muscle strength and tone normal. SPINE: No scoliosis or deformity SKIN: No rashes CENTRAL NERVOUS SYSTEM: Alert and oriented -3. No focal deficits, tone is normal in all 4 extremities. PSYCHIATRIC: Alert and oriented -3. Appropriate affect. Intact judgment and insight. - Labs CBC & Chem 7: 10/07/19 07:19 10/06/19 12:00 Labs: Abnormal Lab Results - Last 24 Hours (Table) 09/27/19 09/30/19 10/01/19 Range/Units 15:27 08:20 10:17 WBC (3.8-10.6) k/uL RBC (3.80-5.40) m/uL Hgb (11.4-16.0) gm/dL Hct (34.0-46.0) % Plt Count (150-450) k/uL Sodium (137-145) mmol/L Chloride (98-107) mmol/L BUN (7-17) mg/dL Creatinine (0.52-1.04) mg/dL Glucose (74-99) mg/dL Calcium (8.4-10.2) mg/dL AST (14-36) U/L ALT (4-34) U/L Total Protein (6.3-8.2) g/dL Albumin (3.5-5.0) g/dL TSH 4.870 H (0.465-4.680) mIU/L Crossmatch See Detail See Detail 10/03/19 10/04/19 10/06/19 Range/Units 06:40 15:06 12:00 WBC (3.8-10.6) k/uL RBC (3.80-5.40) m/uL Hgb (11.4-16.0) gm/dL Hct (34.0-46.0) % Plt Count (150-450) k/uL Sodium 136 L 133 L (137-145) mmol/L Chloride 97 L (98-107) mmol/L BUN 45 H 55 H (7-17) mg/dL Creatinine 2.31 H 2.53 H (0.52-1.04) mg/dL Glucose 118 H (74-99) mg/dL Calcium 8.0 L 8.2 L (8.4-10.2) mg/dL AST 61 H 46 H (14-36) U/L ALT 38 H (4-34) U/L Total Protein 6.2 L (6.3-8.2) g/dL Albumin 3.0 L (3.5-5.0) g/dL TSH (0.465-4.680) mIU/L Crossmatch See Detail 10/06/19 10/07/19 Range/Units 12:00 07:19 WBC 0.4 L* (3.8-10.6) k/uL RBC 2.55 L 2.45 L (3.80-5.40) m/uL Hgb 7.7 L 7.4 L (11.4-16.0) gm/dL Hct 23.8 L 22.6 L (34.0-46.0) % Plt Count 12 L* D (150-450) k/uL Sodium (137-145) mmol/L Chloride (98-107) mmol/L BUN (7-17) mg/dL Creatinine (0.52-1.04) mg/dL Glucose (74-99) mg/dL Calcium (8.4-10.2) mg/dL AST (14-36) U/L ALT (4-34) U/L Total Protein (6.3-8.2) g/dL Albumin (3.5-5.0) g/dL TSH (0.465-4.680) mIU/L Crossmatch Assessment and Plan Plan: Assessment: 1 Acute hypoxemic respiratory failure secondary to bilateral effusions/atelectasis secondary to fluid volume overload, improved, patient has been diuresed, and patient is on room air on today's exam on 10/07/2019 2 Acute myeloid leukemia. Currently on venetoclax and Dacogen 3 Pancytopenia secondary to above, status post 3 units packed red blood cells this admission. 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 6 History of hypertension 7 Prior history of ITP with observation only 8 Valvular heart disease with mild aortic stenosis, and preserved LV function according to recent echocardiogram that must of taken place on an outpatient basis Plan: Continue with oral dose of Lasix, antibiotics, blood cultures have shown no growth, patient is afebrile, her shortness of breath has improved, patient is currently on room air, no cough or congestion. Reports some nausea and vomiting. Vital signs are stable. Continue supportive treatment. ID service is following. Monitor white blood cell count, hemoglobin and platelets. Medical oncology is following. I performed a history & physical examination of the patient and discussed their management with my nurse practitioner, Silvina Hardwick. I reviewed the nurse practitioner's note and agree with the documented findings and plan of care. Lung sounds are positive for diminished breath sounds. The findings and the impression was discussed with the patient. I attest to the documentation by the nurse practitioner. Time with Patient: Less than 30
[2019-10-07] MEDS ORDERED: SODIUM CHLORIDE 0.9% 1,000 ML IV SCH (11:45)
[2019-10-07] MEDS ORDERED: NIFEdipine XL 30 MG TAB.ER.24 PO SCH (11:45)
--- NOTE | 2019-10-07 11:52 | P.PN ---
Subjective Progress Note Date: 10/07/19 Patient is awake and alert. She is still complaining of nausea. She also vomited this morning. She denies any abdominal pain. Objective - Vital Signs Vital signs: Vital Signs Temp 97.8 F 10/07/19 04:30 Pulse 66 10/07/19 04:30 Resp 16 10/07/19 04:30 BP 176/84 10/07/19 06:05 Pulse Ox 95 10/07/19 04:30 Intake & Output 10/06/19 10/07/19 10/07/19 18:59 06:59 18:59 Intake Total 720 Output Total 1650 1000 Balance -930 -1000 Weight 52.8 kg 51.8 kg Intake: Oral 720 Output: Urine 1650 1000 Other: Voiding Method Toilet Toilet # Voids 750 # Bowel Movements 1 1 - Exam General: The patient is awake and alert, in no distress Eye: there is normal conjunctiva bilaterally. Neck: The neck is supple, there is no JVD. Cardiovascular: Normal S1-S2, no S3-S4, no murmurs. Respiratory: Lungs clear to auscultation bilaterally Gastrointestinal: Abdomen is soft, nontender Musculoskeletal: There is no pedal edema. Neurological:. Speech is normal. Skin: Skin is warm and dry - Labs CBC & Chem 7: 10/07/19 07:19 10/06/19 12:00 Labs: Abnormal Lab Results - Last 24 Hours (Table) 09/27/19 09/30/19 10/01/19 Range/Units 15:27 08:20 10:17 WBC (3.8-10.6) k/uL RBC (3.80-5.40) m/uL Hgb (11.4-16.0) gm/dL Hct (34.0-46.0) % Plt Count (150-450) k/uL Sodium (137-145) mmol/L Chloride (98-107) mmol/L BUN (7-17) mg/dL Creatinine (0.52-1.04) mg/dL Glucose (74-99) mg/dL Calcium (8.4-10.2) mg/dL AST (14-36) U/L ALT (4-34) U/L Total Protein (6.3-8.2) g/dL Albumin (3.5-5.0) g/dL TSH 4.870 H (0.465-4.680) mIU/L Crossmatch See Detail See Detail 10/03/19 10/04/19 10/06/19 Range/Units 06:40 15:06 12:00 WBC (3.8-10.6) k/uL RBC (3.80-5.40) m/uL Hgb (11.4-16.0) gm/dL Hct (34.0-46.0) % Plt Count (150-450) k/uL Sodium 136 L 133 L (137-145) mmol/L Chloride 97 L (98-107) mmol/L BUN 45 H 55 H (7-17) mg/dL Creatinine 2.31 H 2.53 H (0.52-1.04) mg/dL Glucose 118 H (74-99) mg/dL Calcium 8.0 L 8.2 L (8.4-10.2) mg/dL AST 61 H 46 H (14-36) U/L ALT 38 H (4-34) U/L Total Protein 6.2 L (6.3-8.2) g/dL Albumin 3.0 L (3.5-5.0) g/dL TSH (0.465-4.680) mIU/L Crossmatch See Detail 10/06/19 10/07/19 Range/Units 12:00 07:19 WBC 0.4 L* (3.8-10.6) k/uL RBC 2.55 L 2.45 L (3.80-5.40) m/uL Hgb 7.7 L 7.4 L (11.4-16.0) gm/dL Hct 23.8 L 22.6 L (34.0-46.0) % Plt Count 12 L* D (150-450) k/uL Sodium (137-145) mmol/L Chloride (98-107) mmol/L BUN (7-17) mg/dL Creatinine (0.52-1.04) mg/dL Glucose (74-99) mg/dL Calcium (8.4-10.2) mg/dL AST (14-36) U/L ALT (4-34) U/L Total Protein (6.3-8.2) g/dL Albumin (3.5-5.0) g/dL TSH (0.465-4.680) mIU/L Crossmatch Assessment and Plan Assessment: 1. Acute myeloid leukemia, management per hematology. Admitted for induction chemotherapy. 2. Pancytopenia, potassium is as needed for hemoglobin less than 7 and platelets less than 10. Hematology following closely. Status post 4 units of PRBC transfusion since admission. 3 units of platelets since admission. 3. Right lower lobe pneumonia, with elevated pro-calcitonin. Maintained on cefepime. Infectious disease following closely. Vancomycin discontinued. 4. Acute hypoxic respiratory failure, continue to wean off oxygen as tolerated for O2 sats greater than 90% 5. Acute kidney injury, continue IV fluid hydration 6. Stage IIIC daily, with baseline creatinine around 2 7. Essential hypertension, blood pressure not well controlled. Increase nifedipine dose to 60 mg daily 8. Bradycardia: patient had heart rate in the 40s documented by nursing. Echocardiogram shows EF of 55%. Cardiology associates bradycardia to MELINDA. Cardiology will follow on as needed basis. Continue telemetry monitoring. 9. Hypothyroidism, maintained on levothyroxin Continue current management otherwise. Appreciate hematology recommendations.
[2019-10-07 11:57] LABS: Poikilocytosis (M) Present
[2019-10-07] MEDS: OLANZapine ODT 5 MG TAB PO SCH (12:14)
--- NOTE | 2019-10-07 14:36 | PN ---
PROGRESS NOTE Patient is seen for followup for chronic kidney disease. She was admitted for chemotherapy for AML. Patient's renal function has remained fairly stable. Her serum creatinine was slightly elevated at 2.5 from 2.34. Previously patient is maintained on oral Lasix. She states she has not been eating much. She has had good urine output. There was evidence of volume overload previously. Therefore, she was started on regular dose of p.o. Lasix. PHYSICAL EXAMINATION: On examination today, blood pressure is 176/84, heart rate 66 per minute, she is afebrile. Examination of the heart S1, S2. Examination of the lungs, decreased breath sounds at the bases. Abdomen is soft, nontender. Examination of lower extremities shows no edema [employer] exam grossly intact. LABS: From yesterday sodium 133, potassium 3.9, chloride 97, BUN 55, creatinine 2.53, hemoglobin 7.7 g/dL from yesterday, today it is 7.4. ASSESSMENT: 1. Chronic kidney disease NKF stage 4 secondary to nephrosclerosis. Serum creatinine was slightly elevated yesterday, mostly prerenal as patient is not eating. I will hold off on her Lasix. 2. A mL status post chemotherapy, currently complaining of fatigue. 3. Pancytopenia, multifactorial. 4. Tumor lysis syndrome post antineoplastic drug therapy, currently improved. 5. Hypertension, blood pressure remains elevated. Patient is maintained on Cozaar at home and Procardia. PLAN: Add Procardia hold Lasix. Add IV fluids for about 8 hours today and encourage increased oral intake. If renal function is stable and if the blood pressure remains elevated, we can resume the Cozaar as well. MMODL / IJN: [id number] /
--- NOTE | 2019-10-07 15:50 | PN ---
PROGRESS NOTE DATE OF SERVICE: 10/07/2019 REASON FOR FOLLOWUP: Febrile neutropenia and question of pneumonia. INTERVAL HISTORY: The patient is currently afebrile, patient is breathing more comfortably. Patient denies having any chest pain. Minimal cough. No nausea, no vomiting. No abdominal pain, no diarrhea. PHYSICAL EXAMINATION: Blood pressure 130/75 with a pulse of 81, temperature is . General description is an elderly female, lying in bed in no distress. RESPIRATORY SYSTEM: Unlabored breathing, decreased breath sounds at the base, no wheeze. HEART: S1, S2. Regular rate and rhythm. ABDOMEN: Soft, no tenderness. LABS: Hemoglobin 7.4, white count is 0.5. DIAGNOSTIC IMPRESSION AND PLAN: Patient with a fever in this patient with underlying neutropenia from her chemotherapy with concern for possible pneumonia. Chest x-ray showed improvement, oxygen has decreased with the patient's pain and monitor clinical course closely. MMODL / IJN: [id number] /
[2019-10-07] MEDS: MORPHINE SULFATE 4 MG/ML SYRINGE IVP PRN (21:47)
[2019-10-08] MEDS: DEXAMETHASONE ORAL 4 MG/ML VIAL PO SCH ×4 (00:08→16:24)
[2019-10-08] MEDS: SALT AND SODA MOUTHWASH 1,000 ML PO SCH ×6 (03:30→23:31)
[2019-10-08] MEDS: LEVOTHYROXINE 88 MCG TAB PO SCH (06:03)
[2019-10-08 06:25] LABS: HCT 22.6 % (34.0-46.0); HGB 7.5 gm/dL (11.4-16.0); MCH 30.5 pg (25.0-35.0); MCHC 33.3 g/dL (31.0-37.0); MCV 91.7 fL (80.0-100.0); Mean Platelet Volume 12.1; RBC 2.47 m/uL (3.80-5.40); RDW 14.9 % (11.5-15.5)
[2019-10-08 06:50] LABS: Platelet Count 6 k/uL (150-450); WBC 0.5 k/uL (3.8-10.6)
[2019-10-08 07:25] LABS: Anisocytosis (M) Present
[2019-10-08] MEDS: ACYCLOVIR 200 MG CAP PO SCH ×2 (08:57→20:49)
[2019-10-08] MEDS: PANTOPRAZOLE 40 MG/10 ML VIAL IVP SCH ×2 (08:57→20:50)
[2019-10-08] MEDS: CEFEPIME 2 GM in SODIUM CHLORIDE 0.9% 100 ML IVPB SCH (08:57)
[2019-10-08] MEDS: OLANZapine ODT 5 MG TAB PO SCH (08:57)
[2019-10-08] MEDS: NIFEdipine XL 30 MG TAB.ER.24 PO SCH (08:57)
[2019-10-08] MEDS: FOLIC ACID 1 MG TAB PO SCH (08:58)
[2019-10-08] MEDS: VENCLEXTA 100 MG PO SCH (08:59)
[2019-10-08] MEDS: MAG HYDROX/AL HYDROX/SIMETH 30 ML, LIDOCAINE VISCOUS 30 ML, diphenhydrAMINE ELIXIR 75 M... PO SCH ×12 (08:59→22:22)
[2019-10-08 10:59] LABS: Calcium 8.2 mg/dL (8.4-10.2); Potassium 3.6 mmol/L (3.5-5.1)
--- NOTE | 2019-10-08 11:01 | P.PN ---
Subjective Progress Note Date: 10/08/19 Patient is feeling very weak today. She is still having some nausea but no vomiting. Objective - Vital Signs Vital signs: Vital Signs Temp 97.4 F L 10/08/19 05:00 Pulse 89 10/08/19 05:00 Resp 16 10/08/19 05:00 BP 188/81 10/08/19 05:00 Pulse Ox 93 L 10/08/19 05:00 Intake & Output 10/07/19 10/08/19 10/08/19 18:59 06:59 18:59 Intake Total 100 Output Total 1900 1400 Balance -1900 -1300 Weight 50.8 kg Intake: Oral 100 Output: Urine 1900 1400 Other: Voiding Method Toilet Toilet Toilet # Bowel Movements 1 - Exam General: The patient is awake and alert, in no distress Eye: there is normal conjunctiva bilaterally. Neck: The neck is supple, there is no JVD. Cardiovascular: Normal S1-S2, no S3-S4, no murmurs. Respiratory: Lungs clear to auscultation bilaterally Gastrointestinal: Abdomen is soft, nontender Musculoskeletal: There is no pedal edema. Neurological:. Speech is normal. Skin: Skin is warm and dry - Labs CBC & Chem 7: 10/08/19 05:39 10/06/19 12:00 Labs: Abnormal Lab Results - Last 24 Hours (Table) 10/07/19 10/08/19 Range/Units 07:19 05:39 WBC 0.5 L* 0.5 L* (3.8-10.6) k/uL RBC 2.47 L (3.80-5.40) m/uL Hgb 7.5 L (11.4-16.0) gm/dL Hct 22.6 L (34.0-46.0) % Plt Count 11 L* 6 L* (150-450) k/uL Assessment and Plan Assessment: This is a 74-year-old female with complex past medical history noted below who presented to the hospital originally with worsening weakness, fatigue, and nausea. Patient was found to have severe anemia and admitted to the hospital for further management of her medical problems noted below. 1. Acute myeloid leukemia, diagnosed in August 2019, management per hematology. Admitted for induction chemotherapy. 2. Pancytopenia, transfuse as needed for hemoglobin less than 7 and platelets less than 10. Hematology following closely. Status post 4 units of PRBC transfusion since admission. 3 units of platelets since admission.. She is receiving another platelet transfusion today for a platelet count of 6 3. Right lower lobe pneumonia, with elevated pro-calcitonin. Maintained on c efepime. Infectious disease following closely. Vancomycin discontinued. 4. Acute hypoxic respiratory failure, continue to wean off oxygen as tolerated for O2 sats greater than 90% 5. Acute kidney injury, awaiting repeat lab work this morning. continue IV fluid hydration for now given poor by mouth intake 6. Stage IIIb CKD, with baseline creatinine around 2 7. Essential hypertension, blood pressure not well controlled. I Increased nifedipine dose to 60 mg daily. Continue to monitor closely 8. Bradycardia: patient had heart rate in the 40s documented by nursing. Echocardiogram shows EF of 55%. Cardiology associates bradycardia to MELINDA. Cardiology will follow on as needed basis. Continue telemetry monitoring. 9. Hypothyroidism, maintained on levothyroxin Continue current management otherwise. Appreciate hematology recommendations.
[2019-10-08] MEDS ORDERED: SODIUM CHLORIDE 0.9% 500 ML 500 ML IV ONE (11:35)
--- NOTE | 2019-10-08 11:39 | P.PN ---
Subjective Progress Note Date: 10/08/19 Principal diagnosis: Dyspnea, fluid overload This is a very pleasant 74-year-old female patient who follows with Dr. Boyd as her primary care provider. She has a history of gout, hypertension, hypothyroidism, stage IV kidney disease. She does follow with Dr. Chavez for a past history of ITP with observation only. Nondiagnostic bone marrow biopsies in August 2007 and February 2009. In early August she had presented to [facility] for progressive weakness and fatigue and was found to be severely anemic. She was transferred here to [facility] where she was worked up for her anemia. 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 She was subsequently discharged and had a PICC line placed on 09/24/2019. She was admitted here on 09/27/2019 for induction treatment with oral venetoclax and IV Dacogen for 5 days. She had been doing fairly well but did develop progressive shortness of breath. Abdominal ultrasound revealed evidence of splenomegaly, ascites. Initial chest x-ray showed mild fibrotic changes but no active acute pulmonary disease. Her oxygen requirements have increased she is currently at 10 L high flow nasal cannula. Today's chest x-ray shows bilateral pleural effusions. We are consulted for the same. She is seen on the oncology floor. She is currently awake and alert in no acute distress. Remains on 10 L high flow nasal cannula. She's currently afebrile. Hemodynamically stable. She did have emesis following her medication this morning. She is having some back discomfort. She has a loose nonproductive cough. She has received 3 units this admission. Blood culture revealing no growth. White count 0.5. Hemoglobin 7.7. Platelet count 13,000. Sodium 133. Potassium 3.9. Creatinine 2.33. She is on cefepime. IV diuretics switched to oral per cardiology. 0.9 normal saline at 50 MLS per hour. Echocardiogram revealed preserved left ventricular systolic function with ejection fraction of 55% and there was noted mild aortic stenosis. Ultrasound of the left upper extremity revealed thrombus around the insertion site of the PICC line, no flow detected around the PICC with debris noted around the left antecubital fossae. On 10/04/2019 patient seen in follow-up on medical oncology unit. She is awake and alert, but appears generally weak, and fatigued, on 3 L of oxygen a pulse ox of 96%, she is afebrile. Mild dyspnea is noted with conversation, lung sounds are diminished at the bases, no complaints of cough or congestion. Patient is on IV antibiotics, she is getting maintenance dose of oral Lasix daily, she received an extra dose of IV Lasix today per nephrology. She is maintaining negative fluid balance, she is in -1 L over the last 24 hours. Yesterday's chest x-ray showed bilateral pleural effusions and bibasilar infiltrated it with a diffuse interstitial pattern related to fluid overload, and CHF. Today's labs have been reviewed showing white blood cell, 0.4, hemoglobin of 6.7, sodium is 135, the rest of the left lites are within normal limits, renal profile is relatively stable with BUN of 41, and creatinine 2.35. Blood culture has shown no growth thus far. Still remains significantly neutropenic, and patient continues on supportive treatment. On 10/05/2019 patient seen in follow-up on medical oncology unit. She looks a little better today, although still very fatigued. Patient is on 10/2 L to 3 L of oxygen a pulse ox of 95%, afebrile, patient was given additional dose of Lasix yesterday, today's chest x-ray shows improving right lower lobe infiltrate and small bilateral pleural effusions that are stable in appearance. Patient has produced 3.8 L in urine output, and she is in 2.6 L negative fluid balance over the last 24 hours. Today's labs have been reviewed showing white count of 0.5, hemoglobin of 8.0, platelet count is 7, and patient will be transfused with platelets per medical oncology, sodium is 136, potassium is 4.1, chloride is 101, CO2 is 28, BUN is 47, creatinine is 2.34. Antibiotic coverage is cefepime, and acyclovir. No evidence of oropharyngeal thrush, blood culture has been negative since admission. No nausea vomiting or diarrhea. Appetite is poor, patient is generally weak, but looks to be in no acute distress. On 10/07/2019 patient seen in follow-up on medical oncology floor, she is resting comfortably in bed, appears to be in no acute distress. Reports no shortness of breath, room air pulse ox is 95%, lung sounds are clear, patient is afebrile, vital signs reviewed and patient is hypertensive, with systolic in the 160s to 180s range. No complaints of chest pain, no cough or congestion, her only complaint today is nausea and vomiting. Today's blood work has been reviewed, white blood cell count is still pending, hemoglobin is 7.4, no BMP. No new chest x-ray. Patient is on cefepime and vancomycin. Blood culture has shown no growth. She is on maintenance dose of oral Lasix on a daily basis. Nephrology is following. Patient is in -930 mL fluid balance over the last 24 hours. On 10/08/2019 patient seen in follow-up on medical oncology floor. She is resting comfortably in bed, still slightly nauseous but has not thrown up today. Denies any shortness of breath, currently on 2 L of oxygen with pulse ox of 93- 95%, lung sounds are clear, diminished at the bases, breathing seems to be comfortable, we'll obtain follow-up chest x-ray today, patient remains on antibiotics with cefepime and vancomycin. Blood cultures have been negative, patient has not produced a sputum sample, she is afebrile, today's labs have been reviewed showing white blood cell, 0.5, hemoglobin of 7.5, sodium is 134, the rest of electrolytes are within normal limits, BUN is 63 and creatinine is 2.63. Diuretics have been discontinued. IV bolus has been ordered. I'll intake has been poor. Today's platelet count has further dropped down to 6, and patient is awaiting transfusion of platelets Objective - Vital Signs Vital signs: Vital Signs Temp 97.4 F L 10/08/19 05:00 Pulse 89 10/08/19 05:00 Resp 16 10/08/19 05:00 BP 188/81 10/08/19 05:00 Pulse Ox 93 L 10/08/19 05:00 Intake & Output 10/07/19 10/08/19 10/08/19 18:59 06:59 18:59 Intake Total 100 Output Total 1900 1400 Balance -1900 -1300 Weight 50.8 kg Intake: Oral 100 Output: Urine 1900 1400 Other: Voiding Method Toilet Toilet Toilet # Bowel Movements 1 - Exam GENERAL EXAM: Alert, active, 74-year-old white female, 2 L of oxygen with a pulse ox of 93-95% comfortable in no apparent distress. Patient appears to be in no acute distress, she sits up in bed, looks comfortable, does report some nausea and vomiting. HEAD: Normocephalic/atraumatic. EYES: Normal reaction of pupils, equal size. Conjunctiva pink, sclera white. NOSE: Clear with pink turbinates. THROAT: No erythema or exudates. NECK: No masses, no JVD, no thyroid enlargement, no adenopathy. CHEST: No chest wall deformity. Symmetrical expansion. LUNGS: Equal air entry with no crackles, wheeze, rhonchi or dullness. Diminished breath sounds at the bases CVS: Regular rate and rhythm, normal S1 and S2, no gallops, systolic murmur auscultated throughout the precordium, loudest in the right sternal border, se cond intercostal space, no rubs ABDOMEN: Soft, nontender. No hepatosplenomegaly, normal bowel sounds, no guarding or rigidity. EXTREMITIES: No clubbing, no edema, no cyanosis, 2+ pulses and upper and lower extremities. MUSCULOSKELETAL: Muscle strength and tone normal. SPINE: No scoliosis or deformity SKIN: No rashes CENTRAL NERVOUS SYSTEM: Alert and oriented -3. No focal deficits, tone is norm al in all 4 extremities. PSYCHIATRIC: Alert and oriented -3. Appropriate affect. Intact judgment and insight. - Labs CBC & Chem 7: 10/08/19 05:39 10/08/19 05:39 Labs: Abnormal Lab Results - Last 24 Hours (Table) 10/07/19 10/08/19 10/08/19 Range/Units 07:19 05:39 05:39 WBC 0.5 L* 0.5 L* (3.8-10.6) k/uL RBC 2.47 L (3.80-5.40) m/uL Hgb 7.5 L (11.4-16.0) gm/dL Hct 22.6 L (34.0-46.0) % Plt Count 11 L* 6 L* (150-450) k/uL Sodium 134 L (137-145) mmol/L BUN 53 H (7-17) mg/dL Creatinine 2.63 H (0.52-1.04) mg/dL Calcium 8.2 L (8.4-10.2) mg/dL Assessment and Plan Plan: Assessment: 1 Acute hypoxemic respiratory failure secondary to bilateral effusions/atelectasis secondary to fluid volume overload, improved, patient has been diuresed, and patient is on room air on today's exam on 10/07/2019 2 Acute myeloid leukemia. Currently on venetoclax and Dacogen 3 Pancytopenia secondary to above, status post 3 units packed red blood cells this admission. 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 6 History of hypertension 7 Prior history of ITP with observation only 8 Valvular heart disease with mild aortic stenosis, and preserved LV function according to recent echocardiogram that must of taken place on an outpatient basis Plan: We'll repeat chest x-ray today, patient likely denies any shortness of breath, she is afebrile, she remains on antibiotics, cultures are negative thus far, platelet count has further decreased, and patient is awaiting transfusion of platelets. Lasix is on hold, oral intake has been very poor, patient still nauseous, and will receive a small IV bolus. Nephrology is following. We'll review the chest x-ray, otherwise patient denies cough or congestion, shortness of breath, continue to follow I performed a history & physical examination of the patient and discussed their management with my nurse practitioner, Silvina Hardwick. I reviewed the nurse practitioner's note and agree with the documented findings and plan of care. Lung sounds are positive for diminished breath sounds. The findings and the impression was discussed with the patient. I attest to the documentation by the nurse practitioner. Time with Patient: Less than 30
--- NOTE | 2019-10-08 12:28 | PN ---
PROGRESS NOTE Patient is seen for followup for chronic kidney disease and acute kidney injury. Patient was admitted to the hospital for initiation of chemotherapy for AML. Her renal function has remained fairly stable with creatinine at about 2.3 mg/dL. However, for the last couple of days, her serum creatinine has increased. The patient was maintained on Lasix p.o. for volume overload. However, but this was discontinued yesterday and patient did receive gentle IV hydration last night. She did get her dose of p.o. Lasix yesterday. Overall, patient states she is feeling slightly better. Her nausea has improved. PHYSICAL EXAMINATION: On examination today, blood pressure was still elevated at 188/81, heart rate of 80 per minute, she is afebrile. Examination of the heart S1, S2. Examination of lungs, bilateral breath sounds are heard. Abdomen is soft, nontender. Examination of the lower extremities shows no evidence of edema. [employer] exam is grossly intact. LABS: Show sodium 134, potassium of 3.6, chloride 99, BUN 53, serum creatinine 2.63. ASSESSMENT: 1. Acute kidney injury, mostly prerenal, status post IV fluids yesterday. Patient did receive the p.o. dose of Lasix yesterday morning. Her Lasix is now discontinued. We will repeat labs in a.m. She is encouraged to increase her oral intake as she is not nauseated anymore. If her creatinine is again higher tomorrow, I will start her on IV hydration. I will give her 250 mL bolus today. 2. AML, status post chemotherapy, currently with pancytopenia, receiving platelet transfusion. 3. Chronic kidney disease, NKF stage IV, secondary to nephrosclerosis, baseline creatinine about 2.3 mg/dL. 4. Hypertension, uncontrolled. Patient was restarted on Procardia. Her blood pressure was slightly better but again high this morning. I will increase the Procardia to 60 mg daily. 5. Volume overload, now resolved. At this point patient appears hypovolemic. She did get IV fluids yesterday. PLAN: A 500 mL IV fluid bolus today. Repeat labs in a.m. Continue to avoid nephrotoxic agents. Increase Procardia to 60 mg daily. MMODL / IJN: [id number] /
--- NOTE | 2019-10-08 14:49 | PN ---
PROGRESS NOTE DATE OF SERVICE: 10/08/2019 REASON FOR FOLLOWUP: Fever and a question of pneumonia. INTERVAL HISTORY: The patient is currently afebrile. The patient is breathing comfortably. The patient denies having any chest pain, no shortness of breath or cough. Currently not requiring any supplemental oxygen. No nausea, no vomiting. No abdominal pain or diarrhea. PHYSICAL EXAMINATION: Blood pressure 118/81 with a pulse of 89, temperature is 97.4. She is 93% on 2 L on room air. General description is an elderly female up in the bed in no distress. RESPIRATORY SYSTEM: Unlabored breathing, decreased breath sounds at the base, no wheeze. HEART: S1, S2. Regular rate and rhythm. ABDOMEN: Soft, no tenderness. EXTREMITIES: No edema of the feet. LABS: Hemoglobin 7.5, white count 0.5, BUN 53, creatinine 2.63. DIAGNOSTIC IMPRESSION AND PLAN: Patient with febrile neutropenia, concern for possible pneumonia and this patient seemed to have shown overall clinical improvement on cefepime to continue and will monitor clinical course closely. Daughter at the bedside. Questions were answered. MMODL / IJN: [id number] /
--- NOTE | 2019-10-08 15:37 | XR ---
EXAMINATION TYPE: XR chest 1V portable DATE OF EXAM: 10/08/2019 HISTORY: Shortness of breath. COMPARISON: 10/05/2019 TECHNIQUE: Single view of the chest is submitted. FINDINGS: Demonstrated are scattered senescent parenchymal change. Basilar infiltrates and/or atelectasis with small effusions remain unchanged. Right-sided PICC line r edemonstrated. The heart is stable. Hilar and mediastinal structures are within normal limits. Degenerative changes are seen of the dorsal spine. IMPRESSION: 1. Basilar infiltrates and/or atelectasis with small effusions remain unchanged.
--- NOTE | 2019-10-08 16:43 | P.PN ---
Subjective Progress Note Date: 10/08/19 Principal diagnosis: Acute Leukemia Nausea is mildly improved on zyprexa. She still feels nauseated but no emesis yet today Objective - Vital Signs Vital signs: Vital Signs Temp 97.6 F 10/08/19 14:03 Pulse 80 10/08/19 14:43 Resp 18 10/08/19 14:43 BP 131/71 10/08/19 14:43 Pulse Ox 95 10/08/19 14:13 Intake & Output 10/07/19 10/08/19 10/08/19 18:59 06:59 18:59 Intake Total 100 0 Output Total 1900 1400 Balance -1900 -1300 0 Weight 50.8 kg Intake: Oral 100 Blood Product 0 Platelet Irr Pheresis 0 Acda1 Unit [id number] Output: Urine 1900 1400 Other: Voiding Method Toilet Toilet Toilet # Bowel Movements 1 - Exam - Constitutional General appearance: Present: average body habitus, cooperative, mild distress - EENT Eyes: Present: anicteric sclerae, EOMI ENT: Present: hearing grossly normal, pharyngeal erythema - Respiratory Respiratory: bilateral: CTA (weak inspiratory effort) - Cardiovascular Rhythm: regular Heart sounds: normal: S1, S2 Abnormal Heart Sounds: Absent: systolic murmur, diastolic murmur, rub, S3 Gallop, S4 Gallop, click, other - Peripheral edema leg Peripheral Edema: bilateral: None - Gastrointestinal General gastrointestinal: Present: normal bowel sounds, soft - Neurologic Neurologic: Present: CNII-XII intact - Musculoskeletal Musculoskeletal: Present: generalized weakness - Psychiatric Psychiatric Comment(s): flat affect Psychiatric: Present: A&O x's 3, intact judgment & insight - Labs CBC & Chem 7: 10/08/19 05:39 10/08/19 05:39 Labs: Abnormal Lab Results - Last 24 Hours (Table) 10/08/19 10/08/19 Range/Units 05:39 05:39 WBC 0.5 L* (3.8-10.6) k/uL RBC 2.47 L (3.80-5.40) m/uL Hgb 7.5 L (11.4-16.0) gm/dL Hct 22.6 L (34.0-46.0) % Plt Count 6 L* (150-450) k/uL Sodium 134 L (137-145) mmol/L BUN 53 H (7-17) mg/dL Creatinine 2.63 H (0.52-1.04) mg/dL Calcium 8.2 L (8.4-10.2) mg/dL Assessment and Plan Plan: Assessment and Plan Nausea and vomiting: - Zyprexa initated 10/06 - with some improvement Mucocytits: - Stable - COntinue supportive care Dyspnea - improving This is felt to be due to fluid overload. - Echocardiogram Reviewed - Cardiology following The patient may need to resume IV hydration because of her underlying tumor lysis, depending on renal function. - Nephrology is following. Defer to Them for fluid management. Acute myeloid leukemia - Continue venetoclax. - Tumor lysis labs are improving - Renal function remains stagnant - stable Left upper extremity swelling - Picc associated DVT, status post removal of the line and replacement of the other side. - platelets prior Pancytopenia - Secondary to AML and Chemo Platelets to transfuse today for 6K - Daily CBC - Irradiated products Keep hemoglobin greater than 7 and platelets greater than 10. Tumor lysis syndrome following antineoplastic drug therapy - Tumor lysis labs are overall improved. Hydration had to be discontinued because of fluid overload. Continue to monitor. Physician Attest: I have completed the full history and physical and agree with above dictation, dictated as a scribe
[2019-10-08] MEDS: MORPHINE SULFATE 4 MG/ML SYRINGE IVP PRN (22:21)
[2019-10-09] MEDS: DEXAMETHASONE ORAL 4 MG/ML VIAL PO SCH ×5 (00:02→23:57)
[2019-10-09] MEDS: SALT AND SODA MOUTHWASH 1,000 ML PO SCH ×6 (04:03→23:56)
[2019-10-09] MEDS: LEVOTHYROXINE 88 MCG TAB PO SCH (06:17)
[2019-10-09 07:09] LABS: MCH 31.5 pg (25.0-35.0); MCHC 34.1 g/dL (31.0-37.0); MCV 92.2 fL (80.0-100.0); RBC 1.94 m/uL (3.80-5.40); RDW 14.9 % (11.5-15.5)
[2019-10-09 07:24] LABS: INR 1.2 (<1.2); Prothrombin Time 11.9 sec (9.0-12.0)
[2019-10-09 07:34] LABS: Albumin 3.2 g/dL (3.5-5.0); Calcium 8.3 mg/dL (8.4-10.2); Magnesium 1.5 mg/dL (1.6-2.3); Potassium 3.4 mmol/L (3.5-5.1); Total Bilirubin 0.7 mg/dL (0.2-1.3); Total Protein 6.4 g/dL (6.3-8.2); WBC 0.4 k/uL (3.8-10.6)
[2019-10-09 07:37] LABS: HCT 17.8 % (34.0-46.0); HGB 6.1 gm/dL (11.4-16.0)
[2019-10-09 07:38] LABS: Platelet Count 10 k/uL (150-450)
[2019-10-09] MEDS: NIFEdipine XL 30 MG TAB.ER.24 PO SCH (08:08)
[2019-10-09] MEDS: ACYCLOVIR 200 MG CAP PO SCH ×2 (08:08→20:51)
[2019-10-09] MEDS: FOLIC ACID 1 MG TAB PO SCH (08:08)
[2019-10-09] MEDS: CEFEPIME 2 GM in SODIUM CHLORIDE 0.9% 100 ML IVPB SCH (08:09)
[2019-10-09] MEDS: PANTOPRAZOLE 40 MG/10 ML VIAL IVP SCH ×2 (08:09→20:51)
[2019-10-09] MEDS: OLANZapine ODT 5 MG TAB PO SCH (08:09)
[2019-10-09] MEDS: VENCLEXTA 100 MG PO SCH (08:10)
[2019-10-09] MEDS: MAG HYDROX/AL HYDROX/SIMETH 30 ML, LIDOCAINE VISCOUS 30 ML, diphenhydrAMINE ELIXIR 75 M... PO SCH ×12 (08:15→22:13)
[2019-10-09] MEDS: ONDANSETRON 4 MG/2 ML VIAL IVP PRN (08:50)
[2019-10-09] MEDS ORDERED: FUROSEMIDE 10 MG/ML 2 ML VIAL IV ONE (12:45)
[2019-10-09] MEDS: POTASSIUM CHLORIDE ER 20 MEQ TAB.ER PO SCH ×2 (13:07→14:33)
--- NOTE | 2019-10-09 14:01 | P.PN ---
Subjective Progress Note Date: 10/09/19 Principal diagnosis: Acute Leukemia Transfuse today one unit Platelets irradiated and one unit of PRBC irradiated Hemoglobin 6.1, platelets 10K Objective - Vital Signs Vital signs: Vital Signs Temp 98.3 F 10/09/19 12:46 Pulse 78 10/09/19 12:46 Resp 16 10/09/19 12:46 BP 163/68 10/09/19 12:46 Pulse Ox 95 10/09/19 12:46 Intake & Output 10/08/19 10/09/19 10/09/19 18:59 06:59 18:59 Intake Total 773 197 0011 Balance 755 187 7124 Weight 50.8 kg Intake: Oral 120 720 Blood Product 310 310 Platelet Irr Pheresis 310 Acda1 Unit [id number] Rc Irr As1 Unit 310 [id number] Other: Voiding Method Toilet Toilet Toilet - Exam - Constitutional General appearance: Present: average body habitus, cooperative, mild distress - EENT Eyes: Present: anicteric sclerae, EOMI ENT: Present: hearing grossly normal, pharyngeal erythema - Respiratory Respiratory: bilateral: CTA (weak inspiratory effort) - Cardiovascular Rhythm: regular Heart sounds: normal: S1, S2 Abnormal Heart Sounds: Absent: systolic murmur, diastolic murmur, rub, S3 Gallop, S4 Gallop, click, other - Peripheral edema leg Peripheral Edema: bilateral: None - Gastrointestinal General gastrointestinal: Present: normal bowel sounds, soft - Neurologic Neurologic: Present: CNII-XII intact - Musculoskeletal Musculoskeletal: Present: generalized weakness - Psychiatric Psychiatric Comment(s): flat affect Psychiatric: Present: A&O x's 3, intact judgment & insight - Labs CBC & Chem 7: 10/09/19 06:09 10/09/19 06:09 Labs: Abnormal Lab Results - Last 24 Hours (Table) 10/09/19 10/09/19 10/09/19 Range/Units 06:09 06:09 06:09 WBC 0.4 L* (3.8-10.6) k/uL RBC 1.94 L (3.80-5.40) m/uL Hgb 6.1 L* (11.4-16.0) gm/dL Hct 17.8 L* (34.0-46.0) % Plt Count 10 L* D (150-450) k/uL INR 1.2 H (<1.2) Sodium 135 L (137-145) mmol/L Potassium 3.4 L (3.5-5.1) mmol/L BUN 46 H (7-17) mg/dL Creatinine 2.58 H (0.52-1.04) mg/dL Calcium 8.3 L (8.4-10.2) mg/dL Magnesium 1.5 L (1.6-2.3) mg/dL Albumin 3.2 L (3.5-5.0) g/dL Crossmatch 10/09/19 Range/Units 08:55 WBC (3.8-10.6) k/uL RBC (3.80-5.40) m/uL Hgb (11.4-16.0) gm/dL Hct (34.0-46.0) % Plt Count (150-450) k/uL INR (<1.2) Sodium (137-145) mmol/L Potassium (3.5-5.1) mmol/L BUN (7-17) mg/dL Creatinine (0.52-1.04) mg/dL Calcium (8.4-10.2) mg/dL Magnesium (1.6-2.3) mg/dL Albumin (3.5-5.0) g/dL Crossmatch See Detail Assessment and Plan Plan: Assessment and Plan Nausea and vomiting: - Zyprexa initated 10/06 - with some improvement Mucocytits: - Stable - Continue supportive care Dyspnea - improving This is felt to be due to fluid overload. - Echocardiogram Reviewed - Cardiology following The patient may need to resume IV hydration because of her underlying tumor lysis, depending on renal function. - Nephrology is following. Defer to Them for fluid management. Acute myeloid leukemia - Continue venetoclax. - Tumor lysis labs are improving - Renal function remains stagnant - stable Left upper extremity swelling - Picc associated DVT, status post removal of the line and replacement of the other side. - platelets prior Pancytopenia - Secondary to AML and Chemo Platelets to transfuse today for 10K PRBC transfusion today for hemoglobin of 6.1 - Daily CBC - Irradiated products Keep hemoglobin greater than 7 and platelets greater than 10. - Anemia work-up ordered to re-assess for asssociated causes Tumor lysis syndrome following antineoplastic drug therapy - Tumor lysis labs are overall improved. Hydration had to be discontinued because of fluid overload. Continue to monitor.
--- NOTE | 2019-10-09 14:02 | P.PN ---
Subjective Patient is seen in follow-up for acute kidney injury on chronic kidney disease. Renal function is stable. Hemoglobin 6.1 this morning. She's currently receiving a unit of blood. She remains pancytopenic. Denies chest pain or shortness of breath. Feels weak. Oral intake just fair. She has been voiding. Vital signs are stable. General: The patient appeared well nourished and normally developed. HEENT: Head exam is unremarkable. Neck is without jugular venous distension. LUNGS: Lungs are clear to auscultation and percussion. Breath sounds decreased. HEART: Rate and Rhythm are regular. ABDOMEN: Soft, nontender. EXTREMITITES: No clubbing, cyanosis, or edema. Objective - Vital Signs Vital signs: Vital Signs Temp 98.3 F 10/09/19 12:46 Pulse 78 10/09/19 12:46 Resp 16 10/09/19 12:46 BP 163/68 10/09/19 12:46 Pulse Ox 95 10/09/19 12:46 Intake & Output 10/08/19 10/09/19 10/09/19 18:59 06:59 18:59 Intake Total 620 076 2298 Balance 332 947 4160 Weight 50.8 kg Intake: Oral 120 720 Blood Product 310 310 Platelet Irr Pheresis 310 Acda1 Unit [id number] Rc Irr As1 Unit 310 [id number] Other: Voiding Method Toilet Toilet Toilet - Labs CBC & Chem 7: 10/09/19 06:09 10/09/19 06:09 Labs: Abnormal Lab Results - Last 24 Hours (Table) 10/09/19 10/09/19 10/09/19 Range/Units 06:09 06:09 06:09 WBC 0.4 L* (3.8-10.6) k/uL RBC 1.94 L (3.80-5.40) m/uL Hgb 6.1 L* (11.4-16.0) gm/dL Hct 17.8 L* (34.0-46.0) % Plt Count 10 L* D (150-450) k/uL INR 1.2 H (<1.2) Sodium 135 L (137-145) mmol/L Potassium 3.4 L (3.5-5.1) mmol/L BUN 46 H (7-17) mg/dL Creatinine 2.58 H (0.52-1.04) mg/dL Calcium 8.3 L (8.4-10.2) mg/dL Magnesium 1.5 L (1.6-2.3) mg/dL Albumin 3.2 L (3.5-5.0) g/dL Crossmatch 10/09/19 Range/Units 08:55 WBC (3.8-10.6) k/uL RBC (3.80-5.40) m/uL Hgb (11.4-16.0) gm/dL Hct (34.0-46.0) % Plt Count (150-450) k/uL INR (<1.2) Sodium (137-145) mmol/L Potassium (3.5-5.1) mmol/L BUN (7-17) mg/dL Creatinine (0.52-1.04) mg/dL Calcium (8.4-10.2) mg/dL Magnesium (1.6-2.3) mg/dL Albumin (3.5-5.0) g/dL Crossmatch See Detail Assessment and Plan Plan: Assessment: 1. Acute kidney injury mostly prerenal secondary to diuresis. Renal function stable. 2. Chronic kidney disease stage IV secondary to nephrosclerosis with baseline creatinine near 2-2.3. 3. AML status post chemotherapy. 4. Pancytopenia. Oncology following. Receiving blood transfusion today. 5. Volume overload. Resolved. 6. Hypertension with chronic kidney disease. Stable. 7. Chronic kidney disease mineral bone disease maintained on calcitriol. 8. Hypokalemia from poor oral intake and diuresis. Plan: Lasix 20 mg IV post blood transfusion. Replace potassium. 40 mg once today. Replace magnesium. 2 g IV today. Continue to monitor renal function and urine output. Follow-up iron studies.
--- NOTE | 2019-10-09 14:07 | P.PN ---
Subjective Progress Note Date: 10/09/19 Patient was seen and examined at the bedside on 10/08. Patient reported that she continues to feel really weak and has inability to tolerate any solids. She denied any additional complaints including chest pain, shortness of breath, fever, chills, cough. Objective - Vital Signs Vital signs: Vital Signs Temp 98.3 F 10/09/19 12:46 Pulse 78 10/09/19 12:46 Resp 16 10/09/19 12:46 BP 163/68 10/09/19 12:46 Pulse Ox 95 10/09/19 12:46 Intake & Output 10/08/19 10/09/19 10/09/19 18:59 06:59 18:59 Intake Total 092 923 0141 Balance 098 575 7098 Weight 50.8 kg Intake: Oral 120 720 Blood Product 310 310 Platelet Irr Pheresis 310 Acda1 Unit [id number] Rc Irr As1 Unit 310 [id number] Other: Voiding Method Toilet Toilet Toilet - Exam General: Non-toxic, in no acute distress, appears stated age, normal weight HEENT: NC/AT, anicteric sclerae, moist conjunctiva, no lid-lag, PERRLA Cardiovascular: S1/S2 wnl, no murmurs, rubs, or gallops Lungs: Clear to auscultation, normal respiratory effort, no accessory muscle use Abdominal: Soft, non-tender, non-distended, no guarding, rebound, or rigidity Skin: Warm, dry Extremities: No edema or contractures Psychiatric: Alert and oriented to person, place and time, appropriate affect Neuro: Speech intact, no focal neuro deficits noted - Labs CBC & Chem 7: 10/09/19 06:09 10/09/19 06:09 Labs: Abnormal Lab Results - Last 24 Hours (Table) 10/09/19 10/09/19 10/09/19 Range/Units 06:09 06:09 06:09 WBC 0.4 L* (3.8-10.6) k/uL RBC 1.94 L (3.80-5.40) m/uL Hgb 6.1 L* (11.4-16.0) gm/dL Hct 17.8 L* (34.0-46.0) % Plt Count 10 L* D (150-450) k/uL INR 1.2 H (<1.2) Sodium 135 L (137-145) mmol/L Potassium 3.4 L (3.5-5.1) mmol/L BUN 46 H (7-17) mg/dL Creatinine 2.58 H (0.52-1.04) mg/dL Calcium 8.3 L (8.4-10.2) mg/dL Magnesium 1.5 L (1.6-2.3) mg/dL Albumin 3.2 L (3.5-5.0) g/dL Crossmatch 10/09/19 Range/Units 08:55 WBC (3.8-10.6) k/uL RBC (3.80-5.40) m/uL Hgb (11.4-16.0) gm/dL Hct (34.0-46.0) % Plt Count (150-450) k/uL INR (<1.2) Sodium (137-145) mmol/L Potassium (3.5-5.1) mmol/L BUN (7-17) mg/dL Creatinine (0.52-1.04) mg/dL Calcium (8.4-10.2) mg/dL Magnesium (1.6-2.3) mg/dL Albumin (3.5-5.0) g/dL Crossmatch See Detail Assessment and Plan Plan: Acute myeloleukemia, diagnosed 08/2019, admitted for induction chemotherapy -Management as per hematology/oncology Pancytopenia -Patient has received multiple blood and platelet transfusions and received a platelet transfusion yesterday and another PRBC transfusion today -Heme/Onc following Right lower lobe pneumonia -Vancomycin and cefepime now discontinued -Infectious disease following CARRIE on chronic kidney disease -Nephrology following, believed to be mostly prerenal from diuresis -Lasix post-transfusion -Monitor BMP Hypokalemia and hypomagnesemia -Replace and monitor Hypertension -Continue with nifedipine 60 mg daily Hypothyroidism -Continue levothyroxine home dose
[2019-10-09] MEDS: MAGNESIUM SULFATE-D5W PMX 1 GM in DEXTROSE/WATER 1 100ML.BAG IVPB SCH ×2 (14:40→17:20)
[2019-10-09 14:49] LABS: Reticulocyte % 2.6 % (0.5-2.0)
--- NOTE | 2019-10-09 16:53 | PN ---
PROGRESS NOTE DATE OF SERVICE: 10/09/2019 REASON FOR FOLLOWUP: Possible pneumonia. INTERVAL HISTORY: Patient is currently afebrile. Patient is breathing comfortably. Patient denies having any chest pain or shortness of breath. Minimal cough. No nausea, no vomiting. No abdominal pain or diarrhea. PHYSICAL EXAMINATION: Blood pressure 130/68 with a pulse of 78, temperature 98.2. She is 95% on room air. General description is an elderly female up in the bed in no distress. Respiratory system: Unlabored breathing, decreased breath sounds at the base. No wheeze. Heart: S1, S2. Regular rate and rhythm. Abdomen soft, no tenderness. LABS: Hemoglobin 6.1, white count 0.4, BUN of 46, creatinine 2.58. DIAGNOSTIC IMPRESSION AND PLAN: Patient with fever with concern for possible pneumonia. The patient received about 10 days of antibiotic therapy. The patient's cefepime has been discontinued. Will monitor the patient closely off antibiotics. Continue supportive care. MMODL / IJN: [id number] /
[2019-10-09 22:56] LABS: % Iron Saturation 40.76 (12.00-45.00)
[2019-10-09 23:28] LABS: Ferritin 1793.3 ng/mL (10.0-291.0); Folate, Serum 23.1 ng/mL
[2019-10-10] MEDS: SALT AND SODA MOUTHWASH 1,000 ML PO SCH ×6 (02:37→22:20)
[2019-10-10] MEDS: DEXAMETHASONE ORAL 4 MG/ML VIAL PO SCH ×3 (06:42→17:00)
[2019-10-10 07:21] LABS: HCT 24.5 % (34.0-46.0); MCH 31.5 pg (25.0-35.0); MCHC 34.9 g/dL (31.0-37.0); MCV 90.3 fL (80.0-100.0); RBC 2.71 m/uL (3.80-5.40); RDW 14.6 % (11.5-15.5)
[2019-10-10 07:22] LABS: HGB 8.6 gm/dL (11.4-16.0); Platelet Count 7 k/uL (150-450); WBC 0.4 k/uL (3.8-10.6)
[2019-10-10 07:24] LABS: Albumin 3.5 g/dL (3.5-5.0); Calcium 8.8 mg/dL (8.4-10.2); Potassium 3.8 mmol/L (3.5-5.1); Total Bilirubin 0.9 mg/dL (0.2-1.3); Total Protein 6.9 g/dL (6.3-8.2)
[2019-10-10] MEDS: FOLIC ACID 1 MG TAB PO SCH (09:31)
[2019-10-10] MEDS: LEVOTHYROXINE 88 MCG TAB PO SCH (09:32)
[2019-10-10] MEDS: OLANZapine ODT 5 MG TAB PO SCH ×2 (09:32→22:02)
[2019-10-10] MEDS: ACYCLOVIR 200 MG CAP PO SCH ×2 (09:32→22:01)
[2019-10-10] MEDS: NIFEdipine XL 30 MG TAB.ER.24 PO SCH (09:32)
[2019-10-10] MEDS: PANTOPRAZOLE 40 MG/10 ML VIAL IVP SCH ×2 (09:32→22:01)
[2019-10-10] MEDS: VENCLEXTA 100 MG PO SCH (09:32)
[2019-10-10] MEDS: SENNOSIDES 8.6 MG TAB PO PRN (09:32)
[2019-10-10] MEDS: MAG HYDROX/AL HYDROX/SIMETH 30 ML, LIDOCAINE VISCOUS 30 ML, diphenhydrAMINE ELIXIR 75 M... PO SCH ×12 (09:33→22:03)
[2019-10-10] MEDS: ONDANSETRON 4 MG/2 ML VIAL IVP PRN (09:42)
--- NOTE | 2019-10-10 11:18 | P.PN ---
Subjective Patient is seen in follow-up for acute kidney injury on chronic kidney disease. Renal function is stable. Hemoglobin 8.6 this morning. She received blood transfusion on October 08. She remains pancytopenic. Denies chest pain or shortness of breath. Feels weak. Oral intake just fair. Could not tolerate Ensure. She has been voiding. Vital signs are stable. General: The patient appeared well nourished and normally developed. HEENT: Head exam is unremarkable. Neck is without jugular venous distension. LUNGS: Lungs are clear to auscultation and percussion. Breath sounds decreased. HEART: Rate and Rhythm are regular. ABDOMEN: Soft, nontender. EXTREMITITES: No clubbing, cyanosis, or edema. Objective - Vital Signs Vital signs: Vital Signs Temp 98.7 F 10/10/19 04:35 Pulse 93 10/10/19 08:00 Resp 16 10/10/19 08:00 BP 151/68 10/10/19 04:35 Pulse Ox 96 10/10/19 04:35 Intake & Output 10/09/19 10/10/19 10/10/19 18:59 06:59 18:59 Intake Total 2470 540 1440 Output Total 900 1500 1500 Balance 1570 -960 -60 Weight 50.2 kg Intake: Oral 2160 240 1440 Blood Product 310 300 Platelet Irr Pheresis 2 300 Acda Unit [id number] Rc Irr As1 Unit 310 [id number] Output: Urine 900 1500 1500 Other: Voiding Method Toilet Toilet Toilet # Voids 750 750 - Labs CBC & Chem 7: 10/10/19 06:41 10/10/19 06:41 Labs: Abnormal Lab Results - Last 24 Hours (Table) 09/27/19 10/09/19 10/09/19 Range/Units 15:27 06:09 06:09 WBC (3.8-10.6) k/uL RBC (3.80-5.40) m/uL Hgb (11.4-16.0) gm/dL Hct (34.0-46.0) % Plt Count (150-450) k/uL Retic Count 2.6 H (0.5-2.0) % Sodium (137-145) mmol/L BUN (7-17) mg/dL Creatinine (0.52-1.04) mg/dL TIBC 211 L (228-460) ug/dL Ferritin 1793.3 H (10.0-291.0) ng/mL Lactate Dehydrogenase 1282 H (313-618) U/L Crossmatch See Detail 10/09/19 10/10/19 10/10/19 Range/Units 08:55 06:41 06:41 WBC 0.4 L* (3.8-10.6) k/uL RBC 2.71 L (3.80-5.40) m/uL Hgb 8.6 L D (11.4-16.0) gm/dL Hct 24.5 L (34.0-46.0) % Plt Count 7 L* (150-450) k/uL Retic Count (0.5-2.0) % Sodium 136 L (137-145) mmol/L BUN 46 H (7-17) mg/dL Creatinine 2.66 H (0.52-1.04) mg/dL TIBC (228-460) ug/dL Ferritin (10.0-291.0) ng/mL Lactate Dehydrogenase (313-618) U/L Crossmatch See Detail Assessment and Plan Plan: Assessment: 1. Acute kidney injury mostly prerenal secondary to diuresis and anemia. Renal function stable. 2. Chronic kidney disease stage IV secondary to nephrosclerosis with baseline creatinine near 2-2.3. 3. AML status post chemotherapy. 4. Pancytopenia. Oncology following. Status post blood transfusion this admission. Iron replete. 5. Volume overload. Resolved. 6. Hypertension with chronic kidney disease. Stable. 7. Chronic kidney disease mineral bone disease maintained on calcitriol. 8. Hypokalemia from poor oral intake and diuresis. Better post replacement. Plan: Encouraged oral intake. Hold diuretics. Continue to monitor renal function and urine output.
--- NOTE | 2019-10-10 14:26 | P.PN ---
Subjective Progress Note Date: 10/10/19 Principal diagnosis: Acute Leukemia Patient has required Platelet transfusion daily last three days, appears she is likely refractory. Have asked nursing to discuss ording crossmatched platelets this week, anticipating 2-3 crossmatched units, orradiated. Please draw one hour post platelets after each transfusion. Platelets 7K today and transfusion ordered Objective - Vital Signs Vital signs: Vital Signs Temp 98 F 10/10/19 13:00 Pulse 81 10/10/19 13:00 Resp 19 10/10/19 13:00 BP 155/77 10/10/19 13:00 Pulse Ox 96 10/10/19 13:00 Intake & Output 10/09/19 10/10/19 10/10/19 18:59 06:59 18:59 Intake Total 2470 540 1440 Output Total 900 1500 1500 Balance 1570 -960 -60 Weight 50.2 kg Intake: Oral 2160 240 1440 Blood Product 310 300 Platelet Irr Pheresis 2 300 Acda Unit [id number] Rc Irr As1 Unit 310 [id number] Output: Urine 900 1500 1500 Other: Voiding Method Toilet Toilet Toilet # Voids 750 750 - Exam - Constitutional General appearance: Present: average body habitus, cooperative, mild distress - EENT Eyes: Present: anicteric sclerae, EOMI ENT: Present: hearing grossly normal, pharyngeal erythema - Respiratory Respiratory: bilateral: CTA (weak inspiratory effort) - Cardiovascular Rhythm: regular Heart sounds: normal: S1, S2 Abnormal Heart Sounds: Absent: systolic murmur, diastolic murmur, rub, S3 Gallop, S4 Gallop, click, other - Peripheral edema leg Peripheral Edema: bilateral: None - Gastrointestinal General gastrointestinal: Present: normal bowel sounds, soft - Neurologic Neurologic: Present: CNII-XII intact - Musculoskeletal Musculoskeletal: Present: generalized weakness - Psychiatric Psychiatric Comment(s): flat affect Psychiatric: Present: A&O x's 3, intact judgment & insight - Labs CBC & Chem 7: 10/10/19 06:41 10/10/19 06:41 Labs: Abnormal Lab Results - Last 24 Hours (Table) 09/27/19 10/09/19 10/09/19 Range/Units 15:27 06:09 06:09 WBC (3.8-10.6) k/uL RBC (3.80-5.40) m/uL Hgb (11.4-16.0) gm/dL Hct (34.0-46.0) % Plt Count (150-450) k/uL Retic Count 2.6 H (0.5-2.0) % Sodium (137-145) mmol/L BUN (7-17) mg/dL Creatinine (0.52-1.04) mg/dL TIBC 211 L (228-460) ug/dL Ferritin 1793.3 H (10.0-291.0) ng/mL Lactate Dehydrogenase 1282 H (313-618) U/L Crossmatch See Detail 10/09/19 10/10/19 10/10/19 Range/Units 08:55 06:41 06:41 WBC 0.4 L* (3.8-10.6) k/uL RBC 2.71 L (3.80-5.40) m/uL Hgb 8.6 L D (11.4-16.0) gm/dL Hct 24.5 L (34.0-46.0) % Plt Count 7 L* (150-450) k/uL Retic Count (0.5-2.0) % Sodium 136 L (137-145) mmol/L BUN 46 H (7-17) mg/dL Creatinine 2.66 H (0.52-1.04) mg/dL TIBC (228-460) ug/dL Ferritin (10.0-291.0) ng/mL Lactate Dehydrogenase (313-618) U/L Crossmatch See Detail Assessment and Plan Plan: Assessment and Plan Nausea and vomiting: - Zyprexa initated 10/06 - with some improvement Mucocytits: Improving - Stable - Continue supportive care Dyspnea - improving This is felt to be due to fluid overload. - Echocardiogram Reviewed - Cardiology following The patient may need to resume IV hydration because of her underlying tumor lysis, depending on renal function. - Nephrology is following. Defer to Them for fluid management. Acute myeloid leukemia - Continue venetoclax. - Tumor lysis labs are improving - Renal function remains stagnant - stable Left upper extremity swelling - Picc associated DVT, status post removal of the line and replacement of the other side. - platelets prior - Unable to anticoagulate due to thrombocytopenia Pancytopenia - Secondary to AML and Chemo Platelets to transfuse today for 10K - Daily CBC - Irradiated products Keep hemoglobin greater than 7 and platelets greater than 10. - Anemia work-up ordered to re-assess for asssociated causes Platelets appear refractory, will order crossmatched platelets for future units, anticipate 3 units this week, continue irradiated when crossmatched Plan: - Crossmatched Irradiated Platelets moving Forward - Increase Zyprexa dose, no emesis but still persistent nausea - Increase Bowel Protocol for perisistent constipation - Add marinol for appetite and nausea - Transfusion platelets today irradiated and one hour post CBC
--- NOTE | 2019-10-10 16:35 | P.PN ---
Subjective Progress Note Date: 10/10/19 Patient was seen and examined at the bedside on 10/09. Patient reports that he continues to feel weak though somewhat better than yesterday. Denied any additional complaints. Denied chest pain, shortness of breath, fever, chills, nausea, vomiting. Objective - Vital Signs Vital signs: Vital Signs Temp 98 F 10/10/19 13:00 Pulse 81 10/10/19 13:00 Resp 19 10/10/19 13:00 BP 155/77 10/10/19 13:00 Pulse Ox 96 10/10/19 13:00 Intake & Output 10/09/19 10/10/19 10/10/19 18:59 06:59 18:59 Intake Total 2470 540 2880 Output Total 900 1500 2700 Balance 1570 -960 180 Weight 50.2 kg Intake: Oral 2160 240 2880 Blood Product 310 300 Platelet Irr Pheresis 2 300 Acda Unit [id number] Rc Irr As1 Unit 310 [id number] Output: Urine 900 1500 2700 Other: Voiding Method Toilet Toilet Toilet # Voids 750 3 - Exam General: Non-toxic, in no acute distress, appears stated age, normal weight HEENT: NC/AT, anicteric sclerae, moist conjunctiva, no lid-lag, PERRLA Cardiovascular: S1/S2 wnl, systolic murmur appreciated, rubs, or gallops Lungs: Clear to auscultation, normal respiratory effort, no accessory muscle use Abdominal: Soft, non-tender, non-distended, no guarding, rebound, or rigidity Skin: Warm, dry Extremities: No edema or contractures Psychiatric: Alert and oriented to person, place and time, appropriate affect Neuro: Speech intact, no focal neuro deficits noted - Labs CBC & Chem 7: 10/10/19 06:41 10/10/19 06:41 Labs: Abnormal Lab Results - Last 24 Hours (Table) 09/27/19 10/09/19 10/09/19 Range/Units 15:27 06:09 08:55 WBC (3.8-10.6) k/uL RBC (3.80-5.40) m/uL Hgb (11.4-16.0) gm/dL Hct (34.0-46.0) % Plt Count (150-450) k/uL Sodium (137-145) mmol/L BUN (7-17) mg/dL Creatinine (0.52-1.04) mg/dL TIBC 211 L (228-460) ug/dL Ferritin 1793.3 H (10.0-291.0) ng/mL Crossmatch See Detail See Detail 10/10/19 10/10/19 Range/Units 06:41 06:41 WBC 0.4 L* (3.8-10.6) k/uL RBC 2.71 L (3.80-5.40) m/uL Hgb 8.6 L D (11.4-16.0) gm/dL Hct 24.5 L (34.0-46.0) % Plt Count 7 L* (150-450) k/uL Sodium 136 L (137-145) mmol/L BUN 46 H (7-17) mg/dL Creatinine 2.66 H (0.52-1.04) mg/dL TIBC (228-460) ug/dL Ferritin (10.0-291.0) ng/mL Crossmatch Assessment and Plan Plan: Acute myeloleukemia, diagnosed 08/2019, admitted for induction chemotherapy -Management as per hematology/oncology Pancytopenia -Patient has received a total of 5 PRBCs and 5 platelet transfusions -Continue to monitor CBC Right lower lobe pneumonia -Vancomycin and cefepime now discontinued, after receiving a total of 10 days -Infectious disease following CARRIE on chronic kidney disease -Nephrology following, believed to be mostly prerenal from diuresis -Lasix post-transfusion -Monitor BMP Hypokalemia and hypomagnesemia -Replace and monitor Hypertension -Continue with nifedipine 60 mg daily Hypothyroidism -Continue levothyroxine home dose
[2019-10-10 21:34] LABS: HCT 20.4 % (34.0-46.0); MCH 30.9 pg (25.0-35.0); MCHC 34.3 g/dL (31.0-37.0); MCV 90.2 fL (80.0-100.0); Mean Platelet Volume 10.9; RBC 2.26 m/uL (3.80-5.40); RDW 14.5 % (11.5-15.5)
[2019-10-10 21:57] LABS: Platelet Count 8 k/uL (150-450)
[2019-10-10] MEDS: SENNOSIDES-DOCUSATE SODIUM 1 EACH TAB PO SCH (22:03)
[2019-10-10 22:27] LABS: WBC 0.3 k/uL (3.8-10.6)
--- NOTE | 2019-10-10 23:22 | P.PN ---
Progress Note - Text Progress Note Date: 10/10/19 REASON FOR FOLLOWUP: Possible pneumonia. INTERVAL HISTORY: Patient remains to be afebrile. Patient is breathing comfortably. Patient denies having any chest pain or shortness of breath. Patient did have minimal cough. No nausea, no vomiting. No abdominal pain or diarrhea. PHYSICAL EXAMINATION: Blood pressure 130/60 with a pulse of 70, temperature 98.2. She is 95% on room air. General description is an elderly female up in the bed in no distress. Respiratory system: Unlabored breathing, decreased breath sounds at the base. No wheeze. Heart: S1, S2. Regular rate and rhythm. Abdomen soft, no tenderness. LABS: Reviewed DIAGNOSTIC IMPRESSION AND PLAN: Patient with fever with concern for possible pneumonia. The patient received about 10 days of antibiotic therapy and the patient's cefepime has been discontinued. ID will Signoff please call back if any questions regarding her infectious disease care
[2019-10-11] MEDS: DEXAMETHASONE ORAL 4 MG/ML VIAL PO SCH ×5 (00:58→23:18)
[2019-10-11] MEDS: SALT AND SODA MOUTHWASH 1,000 ML PO SCH ×6 (03:37→23:19)
[2019-10-11 05:44] LABS: HCT 25.6 % (34.0-46.0); MCH 31.2 pg (25.0-35.0); MCHC 34.7 g/dL (31.0-37.0); MCV 89.9 fL (80.0-100.0); RBC 2.85 m/uL (3.80-5.40)
[2019-10-11 05:59] LABS: WBC 0.4 k/uL (3.8-10.6)
[2019-10-11 06:00] LABS: Platelet Count 7 k/uL (150-450)
[2019-10-11] MEDS: LEVOTHYROXINE 88 MCG TAB PO SCH (06:09)
[2019-10-11 06:35] LABS: Albumin 3.3 g/dL (3.5-5.0); Calcium 8.6 mg/dL (8.4-10.2); Magnesium 2.1 mg/dL (1.6-2.3); Potassium 3.7 mmol/L (3.5-5.1); Total Bilirubin 0.9 mg/dL (0.2-1.3); Total Protein 6.5 g/dL (6.3-8.2)
[2019-10-11 06:45] LABS: HGB 8.9 gm/dL (11.4-16.0)
[2019-10-11] MEDS: SENNOSIDES-DOCUSATE SODIUM 1 EACH TAB PO SCH ×2 (08:14→21:32)
[2019-10-11] MEDS: FOLIC ACID 1 MG TAB PO SCH (08:14)
[2019-10-11] MEDS: ACYCLOVIR 200 MG CAP PO SCH ×2 (08:14→20:46)
[2019-10-11] MEDS: MAG HYDROX/AL HYDROX/SIMETH 30 ML, LIDOCAINE VISCOUS 30 ML, diphenhydrAMINE ELIXIR 75 M... PO SCH ×12 (08:17→21:33)
[2019-10-11] MEDS: polyethylene glycoL 3350 17 GM POWD.PACK PO SCH (08:23)
[2019-10-11] MEDS: NIFEdipine XL 30 MG TAB.ER.24 PO SCH (08:24)
[2019-10-11] MEDS: PANTOPRAZOLE 40 MG/10 ML VIAL IVP SCH ×2 (08:24→20:47)
[2019-10-11] MEDS: VENCLEXTA 100 MG PO SCH (08:35)
--- NOTE | 2019-10-11 09:55 | P.PN ---
Subjective Patient is seen in follow-up for acute kidney injury on chronic kidney disease. Renal function is stable. Hemoglobin 8.9 this morning. She has received blood transfusions this admission. She remains pancytopenic. Denies chest pain or shortness of breath. Feels weak. Oral intake just fair. Could not tolerate Ensure. She has been voiding. Vital signs are stable. General: The patient appeared well nourished and normally developed. HEENT: Head exam is unremarkable. Neck is without jugular venous distension. LUNGS: Lungs are clear to auscultation and percussion. Breath sounds decreased. HEART: Rate and Rhythm are regular. ABDOMEN: Soft, nontender. EXTREMITITES: No clubbing, cyanosis, or edema. Objective - Vital Signs Vital signs: Vital Signs Temp 97.7 F 10/11/19 05:00 Pulse 78 10/11/19 05:00 Resp 16 10/11/19 05:00 BP 149/72 10/11/19 05:00 Pulse Ox 95 10/11/19 05:51 Intake & Output 10/10/19 10/11/19 10/11/19 18:59 06:59 18:59 Intake Total 3600 454 Output Total 3900 1600 Balance -300 -1146 Weight 49.4 kg Intake: Oral 3600 Blood Product 0 454 Platelet Irr Pheresis 3 0 204 Acda Unit [id number] Rc Irr Cpda1 Unit 250 [id number] Output: Urine 3900 1600 Other: Voiding Method Toilet Toilet # Voids 3 - Labs CBC & Chem 7: 10/11/19 04:55 10/11/19 04:55 Labs: Abnormal Lab Results - Last 24 Hours (Table) 10/09/19 10/10/19 10/11/19 Range/Units 08:55 21:04 04:55 WBC 0.3 L* 0.4 L* (3.8-10.6) k/uL RBC 2.26 L 2.85 L (3.80-5.40) m/uL Hgb 7.0 L D 8.9 L D (11.4-16.0) gm/dL Hct 20.4 L 25.6 L (34.0-46.0) % Plt Count 8 L* 7 L* (150-450) k/uL Sodium (137-145) mmol/L BUN (7-17) mg/dL Creatinine (0.52-1.04) mg/dL Albumin (3.5-5.0) g/dL Crossmatch See Detail 10/11/19 Range/Units 04:55 WBC (3.8-10.6) k/uL RBC (3.80-5.40) m/uL Hgb (11.4-16.0) gm/dL Hct (34.0-46.0) % Plt Count (150-450) k/uL Sodium 136 L (137-145) mmol/L BUN 43 H (7-17) mg/dL Creatinine 2.64 H (0.52-1.04) mg/dL Albumin 3.3 L (3.5-5.0) g/dL Crossmatch Assessment and Plan Plan: Assessment: 1. Acute kidney injury mostly prerenal secondary to diuresis and anemia. Renal function stable. 2. Chronic kidney disease stage IV secondary to nephrosclerosis with baseline creatinine near 2-2.3. 3. AML status post chemotherapy. 4. Pancytopenia. Oncology following. Status post blood transfusion this admission. Iron replete. 5. Volume overload. Resolved. 6. Hypertension with chronic kidney disease. Stable. 7. Chronic kidney disease mineral bone disease maintained on calcitriol. 8. Hypokalemia from poor oral intake and diuresis. Better post replacement. Plan: Encouraged oral intake. Continue to hold diuretics. Continue to monitor renal function and urine output.
--- NOTE | 2019-10-11 14:03 | P.PN ---
Subjective Progress Note Date: 10/11/19 Patient was seen and examined at the bedside on 10/10. Patient continues to feel weak and overall fatigue. Though denying any additional complaints. Denying fever, chills, chest pain, shortness of breath or nausea, vomiting, or abdominal pain. Objective - Vital Signs Vital signs: Vital Signs Temp 97.4 F L 10/11/19 11:49 Pulse 76 10/11/19 11:49 Resp 17 10/11/19 11:49 BP 164/66 10/11/19 11:49 Pulse Ox 99 10/11/19 11:49 Intake & Output 10/10/19 10/11/19 10/11/19 18:59 06:59 18:59 Intake Total 3600 454 Output Total 3900 1600 Balance -300 -1146 Weight 49.4 kg 49.4 kg Intake: Oral 3600 Blood Product 0 454 Platelet Irr Pheresis 3 0 204 Acda Unit [id number] Rc Irr Cpda1 Unit 250 [id number] Output: Urine 3900 1600 Other: Voiding Method Toilet Toilet Toilet # Voids 3 - Exam General: Non-toxic, in no acute distress, appears stated age, normal weight HEENT: NC/AT, anicteric sclerae, moist conjunctiva, no lid-lag, PERRLA Cardiovascular: S1/S2 wnl, systolic murmur appreciated, rubs, or gallops Lungs: Clear to auscultation, normal respiratory effort, no accessory muscle use Abdominal: Soft, non-tender, non-distended, no guarding, rebound, or rigidity Skin: Warm, dry Extremities: No edema or contractures Psychiatric: Alert and oriented to person, place and time, appropriate affect Neuro: Speech intact, no focal neuro deficits noted - Labs CBC & Chem 7: 10/11/19 04:55 10/11/19 04:55 Labs: Abnormal Lab Results - Last 24 Hours (Table) 10/08/19 10/09/19 10/10/19 Range/Units 05:39 08:55 21:04 WBC 0.3 L* (3.8-10.6) k/uL RBC 2.26 L (3.80-5.40) m/uL Hgb 7.0 L D (11.4-16.0) gm/dL Hct 20.4 L (34.0-46.0) % Plt Count 8 L* (150-450) k/uL Haptoglobin 229.0 H (31.2-198.0) mg/dL Sodium (137-145) mmol/L BUN (7-17) mg/dL Creatinine (0.52-1.04) mg/dL Albumin (3.5-5.0) g/dL Crossmatch See Detail 10/11/19 10/11/19 Range/Units 04:55 04:55 WBC 0.4 L* (3.8-10.6) k/uL RBC 2.85 L (3.80-5.40) m/uL Hgb 8.9 L D (11.4-16.0) gm/dL Hct 25.6 L (34.0-46.0) % Plt Count 7 L* (150-450) k/uL Haptoglobin (31.2-198.0) mg/dL Sodium 136 L (137-145) mmol/L BUN 43 H (7-17) mg/dL Creatinine 2.64 H (0.52-1.04) mg/dL Albumin 3.3 L (3.5-5.0) g/dL Crossmatch Assessment and Plan Plan: Acute myeloleukemia, diagnosed 08/2019, admitted for induction chemotherapy -Management as per hematology/oncology Pancytopenia -Patient has received a total of 6 PRBCs and 6 platelet transfusions -Continue to monitor CBC Right lower lobe pneumonia -Vancomycin and cefepime now discontinued, after receiving a total of 10 days -Infectious disease following CARRIE on chronic kidney disease -Nephrology following, believed to be mostly prerenal from diuresis -Lasix post-transfusion -Monitor BMP Hypokalemia and hypomagnesemia, resolved Hypertension -Continue with nifedipine 60 mg daily Hypothyroidism -Continue levothyroxine home dose
[2019-10-11] MEDS: OLANZapine ODT 5 MG TAB PO SCH (20:46)
[2019-10-11 21:09] LABS: HCT 23.7 % (34.0-46.0); HGB 8.4 gm/dL (11.4-16.0); MCH 31.8 pg (25.0-35.0); MCHC 35.2 g/dL (31.0-37.0); MCV 90.3 fL (80.0-100.0); Mean Platelet Volume 12.1; RBC 2.63 m/uL (3.80-5.40); RDW 14.2 % (11.5-15.5)
--- NOTE | 2019-10-11 21:20 | P.PN ---
Subjective Progress Note Date: 10/11/19 Principal diagnosis: Acute Leukemia Patient is not responding to platelets, awaiting cross matched. Objective - Vital Signs Vital signs: Vital Signs Temp 98 F 10/11/19 20:08 Pulse 82 10/11/19 20:08 Resp 18 10/11/19 20:08 BP 161/72 10/11/19 20:08 Pulse Ox 95 10/11/19 20:08 Intake & Output 10/11/19 10/11/19 10/12/19 06:59 18:59 06:59 Intake Total 454 0 205 Output Total 1600 600 Balance -1146 -600 205 Weight 49.4 kg 49.4 kg Intake: Blood Product 454 0 205 Platelet Irr Pheresis 2 0 205 Acda Unit [id number] Platelet Irr Pheresis 3 204 Acda Unit [id number] Rc Irr Cpda1 Unit 250 [id number] Output: Urine 1600 600 Other: Voiding Method Toilet Toilet - Exam - Constitutional General appearance: Present: average body habitus, cooperative, mild distress - EENT Eyes: Present: anicteric sclerae, EOMI ENT: Present: hearing grossly normal, pharyngeal erythema - Respiratory Respiratory: bilateral: CTA (weak inspiratory effort) - Cardiovascular Rhythm: regular Heart sounds: normal: S1, S2 Abnormal Heart Sounds: Absent: systolic murmur, diastolic murmur, rub, S3 Gallop, S4 Gallop, click, other - Peripheral edema leg Peripheral Edema: bilateral: None - Gastrointestinal General gastrointestinal: Present: normal bowel sounds, soft - Neurologic Neurologic: Present: CNII-XII intact - Musculoskeletal Musculoskeletal: Present: generalized weakness - Psychiatric Psychiatric Comment(s): flat affect Psychiatric: Present: A&O x's 3, intact judgment & insight - Labs CBC & Chem 7: 10/11/19 04:55 10/11/19 04:55 Labs: Abnormal Lab Results - Last 24 Hours (Table) 10/08/19 10/09/19 10/10/19 Range/Units 05:39 08:55 21:04 WBC 0.3 L* (3.8-10.6) k/uL RBC 2.26 L (3.80-5.40) m/uL Hgb 7.0 L D (11.4-16.0) gm/dL Hct 20.4 L (34.0-46.0) % Plt Count 8 L* (150-450) k/uL Haptoglobin 229.0 H (31.2-198.0) mg/dL Sodium (137-145) mmol/L BUN (7-17) mg/dL Creatinine (0.52-1.04) mg/dL Albumin (3.5-5.0) g/dL Crossmatch See Detail 10/11/19 10/11/19 Range/Units 04:55 04:55 WBC 0.4 L* (3.8-10.6) k/uL RBC 2.85 L (3.80-5.40) m/uL Hgb 8.9 L D (11.4-16.0) gm/dL Hct 25.6 L (34.0-46.0) % Plt Count 7 L* (150-450) k/uL Haptoglobin (31.2-198.0) mg/dL Sodium 136 L (137-145) mmol/L BUN 43 H (7-17) mg/dL Creatinine 2.64 H (0.52-1.04) mg/dL Albumin 3.3 L (3.5-5.0) g/dL Crossmatch Assessment and Plan Plan: Assessment and Plan Nausea and vomiting: - Zyprexa initated 10/06 - with some improvement Mucocytits: Improving - Stable - Continue supportive care Dyspnea - improving This is felt to be due to fluid overload. - Echocardiogram Reviewed - Cardiology following The patient may need to resume IV hydration because of her underlying tumor lysis, depending on renal function. - Nephrology is following. Defer to Them for fluid management. Acute myeloid leukemia - Continue venetoclax. - Tumor lysis labs are improving - Renal function remains stagnant - stable Left upper extremity swelling - Picc associated DVT, status post removal of the line and replacement of the other side. - platelets prior - Unable to anticoagulate due to thrombocytopenia Pancytopenia - Secondary to AML and Chemo Platelets to transfuse today for 10K - Daily CBC - Irradiated products Keep hemoglobin greater than 7 and platelets greater than 10. - Anemia work-up ordered to re-assess for asssociated causes Platelets appear refractory, will order crossmatched platelets for future units, anticipate 3 units this week, continue irradiated when crossmatched Plan: - Crossmatched Irradiated Platelets moving Forward, although until they are available continue to transsfuse irradiated platelets - Increase Bowel Protocol for perisistent constipation - Add marinol for appetite and nausea - Transfusion platelets today irradiated and one hour post CBC
[2019-10-11 21:44] LABS: WBC 0.4 k/uL (3.8-10.6)
[2019-10-11 21:45] LABS: Platelet Count 8 k/uL (150-450)
[2019-10-12 01:20] LABS: Anisocytosis (M) Present
[2019-10-12] MEDS: SALT AND SODA MOUTHWASH 1,000 ML PO SCH ×6 (02:21→22:24)
[2019-10-12] MEDS: DEXAMETHASONE ORAL 4 MG/ML VIAL PO SCH ×3 (05:51→17:00)
[2019-10-12] MEDS: LEVOTHYROXINE 88 MCG TAB PO SCH (05:51)
[2019-10-12 07:05] LABS: Albumin 3.4 g/dL (3.5-5.0); Calcium 8.4 mg/dL (8.4-10.2); Magnesium 1.9 mg/dL (1.6-2.3); Phosphorus 3.1 mg/dL (2.5-4.5); Potassium 3.7 mmol/L (3.5-5.1); Total Bilirubin 0.9 mg/dL (0.2-1.3); Total Protein 6.7 g/dL (6.3-8.2)
[2019-10-12 08:33] LABS: HCT 25.3 % (34.0-46.0); HGB 8.5 gm/dL (11.4-16.0); MCH 30.3 pg (25.0-35.0); MCHC 33.8 g/dL (31.0-37.0); MCV 89.7 fL (80.0-100.0); Mean Platelet Volume 12.9; RBC 2.82 m/uL (3.80-5.40)
[2019-10-12 08:36] LABS: Platelet Count 6 k/uL (150-450); WBC 0.3 k/uL (3.8-10.6)
[2019-10-12] MEDS: VENCLEXTA 100 MG PO SCH (09:22)
[2019-10-12] MEDS: FOLIC ACID 1 MG TAB PO SCH (09:23)
[2019-10-12] MEDS: polyethylene glycoL 3350 17 GM POWD.PACK PO SCH (09:23)
[2019-10-12] MEDS: ACYCLOVIR 200 MG CAP PO SCH ×2 (09:23→22:09)
[2019-10-12] MEDS: SENNOSIDES-DOCUSATE SODIUM 1 EACH TAB PO SCH ×2 (09:23→22:09)
[2019-10-12] MEDS: PANTOPRAZOLE 40 MG/10 ML VIAL IVP SCH ×2 (09:23→22:10)
[2019-10-12] MEDS: MAG HYDROX/AL HYDROX/SIMETH 30 ML, LIDOCAINE VISCOUS 30 ML, diphenhydrAMINE ELIXIR 75 M... PO SCH ×12 (09:24→22:15)
[2019-10-12] MEDS: NIFEdipine XL 30 MG TAB.ER.24 PO SCH (09:24)
--- NOTE | 2019-10-12 11:50 | P.PN ---
Subjective Patient is seen in follow-up for acute kidney injury on chronic kidney disease. Renal function is fairly stable. Hemoglobin 8.5 this morning. She has received blood transfusions this admission. She remains pancytopenic. Denies chest pain or shortness of breath. Feels weak. Oral intake just fair. Could not tolerate Ensure. She has been voiding. No changes overnight. No edema. Vital signs are stable. General: The patient appeared well nourished and normally developed. HEENT: Head exam is unremarkable. Neck is without jugular venous distension. LUNGS: Lungs are clear to auscultation and percussion. Breath sounds decreased. HEART: Rate and Rhythm are regular. ABDOMEN: Soft, nontender. EXTREMITITES: No clubbing, cyanosis, or edema. Objective - Vital Signs Vital signs: Vital Signs Temp 98.6 F 10/12/19 05:00 Pulse 87 10/12/19 05:00 Resp 16 10/12/19 05:00 BP 172/79 10/12/19 05:00 Pulse Ox 95 10/12/19 07:19 Intake & Output 10/11/19 10/12/19 10/12/19 18:59 06:59 18:59 Intake Total 0 1095 Output Total 600 1500 800 Balance -600 -405 -800 Weight 49.4 kg 49.9 kg Intake: Oral 890 Blood Product 0 205 Platelet Irr Pheresis 2 0 205 Acda Unit [id number] Output: Urine 600 1500 800 Other: Voiding Method Toilet Toilet Toilet - Labs CBC & Chem 7: 10/12/19 05:37 10/12/19 05:31 Labs: Abnormal Lab Results - Last 24 Hours (Table) 10/08/19 10/08/19 10/11/19 Range/Units 05:39 05:39 20:38 WBC 0.4 L* (3.8-10.6) k/uL RBC 2.63 L (3.80-5.40) m/uL Hgb 8.4 L (11.4-16.0) gm/dL Hct 23.7 L (34.0-46.0) % Plt Count 8 L* (150-450) k/uL Haptoglobin 229.0 H (31.2-198.0) mg/dL BUN (7-17) mg/dL Creatinine (0.52-1.04) mg/dL Albumin (3.5-5.0) g/dL Methylmalonic Acid 0.90 H (<0.40) umol/L 10/12/19 10/12/19 Range/Units 05:31 05:37 WBC 0.3 L* (3.8-10.6) k/uL RBC 2.82 L (3.80-5.40) m/uL Hgb 8.5 L (11.4-16.0) gm/dL Hct 25.3 L (34.0-46.0) % Plt Count 6 L* (150-450) k/uL Haptoglobin (31.2-198.0) mg/dL BUN 42 H (7-17) mg/dL Creatinine 2.76 H (0.52-1.04) mg/dL Albumin 3.4 L (3.5-5.0) g/dL Methylmalonic Acid (<0.40) umol/L Assessment and Plan Plan: Assessment: 1. Acute kidney injury mostly prerenal secondary to diuresis and anemia. Renal function fairly stable. 2. Chronic kidney disease stage IV secondary to nephrosclerosis with baseline creatinine near 2-2.3. 3. AML status post chemotherapy. 4. Pancytopenia. Oncology following. Status post blood transfusion this admission. Iron replete. 5. Volume overload. Resolved. 6. Hypertension with chronic kidney disease. Stable. 7. Chronic kidney disease mineral bone disease maintained on calcitriol. 8. Hypokalemia from poor oral intake and diuresis. Better post replacement. Plan: Encouraged oral intake. Continue to hold diuretics. Continue to monitor renal function and urine output. Increase Procardia to 90 mg daily.
--- NOTE | 2019-10-12 14:25 | P.PN ---
Subjective Progress Note Date: 10/12/19 Principal diagnosis: Acute Leukemia Her counts are lower this am, she is still very weak and overall not appearing to respond. Awaiting on Crossmatched platelets for refractory status. Objective - Vital Signs Vital signs: Vital Signs Temp 98.1 F 10/12/19 11:44 Pulse 81 10/12/19 11:44 Resp 16 10/12/19 11:44 BP 169/72 10/12/19 11:44 Pulse Ox 95 10/12/19 11:44 Intake & Output 10/11/19 10/12/19 10/12/19 18:59 06:59 18:59 Intake Total 0 1095 Output Total 600 1500 1200 Balance -600 -405 -1200 Weight 49.4 kg 49.9 kg Intake: Oral 890 Blood Product 0 205 Platelet Irr Pheresis 2 0 205 Acda Unit [id number] Output: Urine 600 1500 1200 Other: Voiding Method Toilet Toilet Toilet - Exam - Constitutional General appearance: Present: average body habitus, cooperative, mild distress - EENT Eyes: Present: anicteric sclerae, EOMI ENT: Present: hearing grossly normal, pharyngeal erythema - Respiratory Respiratory: bilateral: CTA (weak inspiratory effort) - Cardiovascular Rhythm: regular Heart sounds: normal: S1, S2 Abnormal Heart Sounds: Absent: systolic murmur, diastolic murmur, rub, S3 Gallop, S4 Gallop, click, other - Peripheral edema leg Peripheral Edema: bilateral: None - Gastrointestinal General gastrointestinal: Present: normal bowel sounds, soft - Neurologic Neurologic: Present: CNII-XII intact - Musculoskeletal Musculoskeletal: Present: generalized weakness - Psychiatric Psychiatric Comment(s): flat affect Psychiatric: Present: A&O x's 3, intact judgment & insight - Labs CBC & Chem 7: 10/12/19 05:37 10/12/19 05:31 Labs: Abnormal Lab Results - Last 24 Hours (Table) 10/08/19 10/11/19 10/12/19 Range/Units 05:39 20:38 05:31 WBC 0.4 L* (3.8-10.6) k/uL RBC 2.63 L (3.80-5.40) m/uL Hgb 8.4 L (11.4-16.0) gm/dL Hct 23.7 L (34.0-46.0) % Plt Count 8 L* (150-450) k/uL BUN 42 H (7-17) mg/dL Creatinine 2.76 H (0.52-1.04) mg/dL Albumin 3.4 L (3.5-5.0) g/dL Methylmalonic Acid 0.90 H (<0.40) umol/L 10/11/ Range/Units 05:37 WBC 0.3 L* (3.8-10.6) k/uL RBC 2.82 L (3.80-5.40) m/uL Hgb 8.5 L (11.4-16.0) gm/dL Hct 25.3 L (34.0-46.0) % Plt Count 6 L* (150-450) k/uL BUN (7-17) mg/dL Creatinine (0.52-1.04) mg/dL Albumin (3.5-5.0) g/dL Methylmalonic Acid (<0.40) umol/L Assessment and Plan Plan: Assessment and Plan Nausea and vomiting: Improving - Zyprexa initated 10/06 - with some improvement Mucocytits: Improving - Stable - Continue supportive care Dyspnea - improving This is felt to be due to fluid overload. - Echocardiogram Reviewed - Cardiology following The patient may need to resume IV hydration because of her underlying tumor lysis, depending on renal function. - Nephrology is following. Defer to Them for fluid management. Acute myeloid leukemia - Continue venetoclax. - Tumor lysis labs are improving - Renal function remains stagnant - stable - Likely need repeat BM soon without improvement in CBC Left upper extremity swelling - Picc associated DVT, status post removal of the line and replacement of the other side. - platelets prior - Unable to anticoagulate due to thrombocytopenia Pancytopenia - Secondary to AML and Chemo - Worsening Platelets to transfuse today for 10K - Daily CBC - Irradiated products Keep hemoglobin greater than 7 and platelets greater than 10. - Anemia work-up ordered to re-assess for asssociated causes Platelets appear refractory, will order crossmatched platelets for future units, anticipate 3 units this week, continue irradiated when crossmatched Plan: - Crossmatched Irradiated Platelets moving Forward, although until they are available continue to transsfuse irradiated platelets - Transfusion platelets today irradiated and one hour post CBC - Per Dr. Escobar Stop Venetoclax and Bone Marrow biopsy to be scheduled
--- NOTE | 2019-10-12 15:01 | P.PN ---
Subjective Progress Note Date: 10/12/19 Principal diagnosis: Thrombocytopenia Patient was seen and examined. No acute events overnight. Patient reports fatigue and tiredness. She reports exertional shortness of breath. She denies any chest pain or palpitations. No nausea or vomiting. No fever or chills. Objective - Vital Signs Vital signs: Vital Signs Temp 98.1 F 10/12/19 11:44 Pulse 81 10/12/19 11:44 Resp 16 10/12/19 11:44 BP 169/72 10/12/19 11:44 Pulse Ox 95 10/12/19 11:44 Intake & Output 10/11/19 10/12/19 10/12/19 18:59 06:59 18:59 Intake Total 0 1095 Output Total 600 1500 1200 Balance -600 -405 -1200 Weight 49.4 kg 49.9 kg Intake: Oral 890 Blood Product 0 205 Platelet Irr Pheresis 2 0 205 Acda Unit [id number] Output: Urine 600 1500 1200 Other: Voiding Method Toilet Toilet Toilet - Exam General: [non toxic, appears pale], [no distress], [appears at stated age] Derm: [warm], [dry] Head: [atraumatic], [normocephalic], [symmetric] Eyes: [EOMI], [no lid lag], [anicteric sclera] Mouth: [no lip lesion], [mucus membranes moist] Cardiovascular: [S1S2 reg], [systolic murmur], [positive DP pulse bilateral], Lungs: [Decreased breath sounds bilateral], [no rhonchi, no rales] , [no acce ssory muscle use] Abdominal: [soft], [ nontender to palpation], [no guarding], [no appreciable organomegaly] Ext: [no gross muscle atrophy], [no edema], [no contractures] Neuro: [no focal neuro deficits] Psych: [Alert], [oriented], [appropriate affect] - Labs CBC & Chem 7: 10/12/19 05:37 10/12/19 05:31 Labs: Abnormal Lab Results - Last 24 Hours (Table) 10/08/19 10/11/19 10/12/19 Range/Units 05:39 20:38 05:31 WBC 0.4 L* (3.8-10.6) k/uL RBC 2.63 L (3.80-5.40) m/uL Hgb 8.4 L (11.4-16.0) gm/dL Hct 23.7 L (34.0-46.0) % Plt Count 8 L* (150-450) k/uL BUN 42 H (7-17) mg/dL Creatinine 2.76 H (0.52-1.04) mg/dL Albumin 3.4 L (3.5-5.0) g/dL Methylmalonic Acid 0.90 H (<0.40) umol/L 10/12/19 Range/Units 05:37 WBC 0.3 L* (3.8-10.6) k/uL RBC 2.82 L (3.80-5.40) m/uL Hgb 8.5 L (11.4-16.0) gm/dL Hct 25.3 L (34.0-46.0) % Plt Count 6 L* (150-450) k/uL BUN (7-17) mg/dL Creatinine (0.52-1.04) mg/dL Albumin (3.5-5.0) g/dL Methylmalonic Acid (<0.40) umol/L Assessment and Plan Assessment: Severe anemia with pancytopenia related to AML Herpes with mucositis Left upper extremity swelling with thrombus Acute kidney injury on probable chronic kidney disease Hypertension Subclinical hypothyroidism Resolved: Hyperkalemia, hypocalcemia, hypomagnesemia, hyponatremia, bradycardia with left bundle branch block, acute hypoxic respiratory failure Her hemoglobin is 8.5. Platelet count 6. Likely related to AML. Plans: Has received 6 units PRBC so far. Total of 7 units platelets. Waiting on HLA crossmatched irradiated platelets. Daily CBC. Follow hematology recommendations. Transfuse PRBC if hemoglobin is less than 7. Likely from chemotherapy. Continue acyclovir. Continue Decadron oral and stomatitis cocktail. Received PICC line in the left upper extremity. Duplex has been reordered and there is a thrombus around the PICC line which was taken out. Oncology does not recommend anticoagulation at this time. BUN 42, creatinine 2.76. Likely related to dehydration and poor oral intake. Plans: Restart calcitriol. Avoid nephrotoxins. Daily BMP. BP 169/72. Plans: Procardia increased. Monitor vitals, adjust medications as necessary. Plans: Resume Synthroid. Repeat TSH in 6 weeks.
[2019-10-12] MEDS ORDERED: LORazepam 2 MG/ML INJ IV PRN (17:32)
[2019-10-12] MEDS: ONDANSETRON 4 MG/2 ML VIAL IVP PRN (21:01)
[2019-10-12] MEDS: OLANZapine ODT 5 MG TAB PO SCH (22:10)
[2019-10-13] MEDS: ACETAMINOPHEN TAB 325 MG TAB PO PRN (00:22)
[2019-10-13] MEDS: DEXAMETHASONE ORAL 4 MG/ML VIAL PO SCH ×4 (02:05→16:57)
[2019-10-13] MEDS: SALT AND SODA MOUTHWASH 1,000 ML PO SCH ×5 (04:06→21:52)
[2019-10-13] MEDS: LEVOTHYROXINE 88 MCG TAB PO SCH (06:13)
[2019-10-13 08:08] LABS: INR 1.1 (<1.2); Partial Thromboplastin Time 29.4 sec (22.0-30.0); Prothrombin Time 11.7 sec (9.0-12.0)
[2019-10-13 08:12] LABS: HCT 23.9 % (34.0-46.0); HGB 8.3 gm/dL (11.4-16.0); MCH 31.8 pg (25.0-35.0); MCHC 34.9 g/dL (31.0-37.0); MCV 91.1 fL (80.0-100.0); Mean Platelet Volume 11.4; RBC 2.62 m/uL (3.80-5.40); RDW 14.2 % (11.5-15.5)
[2019-10-13 08:13] LABS: Platelet Count 11 k/uL (150-450); WBC 0.5 k/uL (3.8-10.6)
[2019-10-13 08:32] LABS: Albumin 3.4 g/dL (3.5-5.0); Calcium 8.2 mg/dL (8.4-10.2); Magnesium 1.7 mg/dL (1.6-2.3); Phosphorus 3.7 mg/dL (2.5-4.5); Potassium 3.6 mmol/L (3.5-5.1); Total Bilirubin 0.9 mg/dL (0.2-1.3); Total Protein 6.7 g/dL (6.3-8.2)
[2019-10-13 08:54] LABS: Anisocytosis (M) Present; Poikilocytosis (M) Present
[2019-10-13 08:55] LABS: Spherocytes Present
[2019-10-13] MEDS: amLODIPine 10 MG TAB PO SCH (09:00)
[2019-10-13] MEDS: polyethylene glycoL 3350 17 GM POWD.PACK PO SCH (09:00)
[2019-10-13] MEDS: ACYCLOVIR 200 MG CAP PO SCH ×2 (09:00→21:51)
[2019-10-13] MEDS: FOLIC ACID 1 MG TAB PO SCH (09:00)
[2019-10-13] MEDS ORDERED: NIFEdipine XL 90 MG TAB.ER.24 PO SCH (09:00)
[2019-10-13] MEDS: SENNOSIDES-DOCUSATE SODIUM 1 EACH TAB PO SCH ×2 (09:00→21:51)
[2019-10-13] MEDS: MAG HYDROX/AL HYDROX/SIMETH 30 ML, LIDOCAINE VISCOUS 30 ML, diphenhydrAMINE ELIXIR 75 M... PO SCH ×12 (09:01→21:51)
[2019-10-13] MEDS: VENCLEXTA 100 MG PO SCH (09:01)
[2019-10-13] MEDS: PANTOPRAZOLE 40 MG/10 ML VIAL IVP SCH ×2 (09:01→21:50)
--- NOTE | 2019-10-13 10:48 | P.PN ---
Subjective Patient is seen in follow-up for acute kidney injury on chronic kidney disease. Renal function is fairly stable. Hemoglobin 8.3 this morning. She has received blood transfusions this admission. She remains pancytopenic. Denies chest pain or shortness of breath. Feels weak. Oral intake just fair. Could not tolerate Ensure. She has been voiding. No changes overnight. No edema. Vital signs are stable. General: The patient appeared well nourished and normally developed. HEENT: Head exam is unremarkable. Neck is without jugular venous distension. LUNGS: Lungs are clear to auscultation and percussion. Breath sounds decreased. HEART: Rate and Rhythm are regular. ABDOMEN: Soft, nontender. EXTREMITITES: No clubbing, cyanosis, or edema. Objective - Vital Signs Vital signs: Vital Signs Temp 98.2 F 10/13/19 09:10 Pulse 94 10/13/19 09:10 Resp 18 10/13/19 09:10 BP 159/76 10/13/19 09:10 Pulse Ox 92 L 10/13/19 09:10 Intake & Output 10/12/19 10/13/19 10/13/19 18:59 06:59 18:59 Intake Total 334 Output Total 1400 400 Balance -1400 334 -400 Weight 49.9 kg 50.1 kg Intake: Blood Product 334 Platelet Irr Pheresis Pas 334 -C Unit [id number] Output: Urine 1400 400 Other: Voiding Method Toilet Toilet Toilet # Voids 0 - Labs CBC & Chem 7: 10/13/19 07:27 10/13/19 07:27 Labs: Abnormal Lab Results - Last 24 Hours (Table) 10/13/19 10/13/19 Range/Units 07:27 07:27 WBC 0.5 L* (3.8-10.6) k/uL RBC 2.62 L (3.80-5.40) m/uL Hgb 8.3 L (11.4-16.0) gm/dL Hct 23.9 L (34.0-46.0) % Plt Count 11 L* D (150-450) k/uL BUN 45 H (7-17) mg/dL Creatinine 2.76 H (0.52-1.04) mg/dL Calcium 8.2 L (8.4-10.2) mg/dL Lactate Dehydrogenase 1122 H (313-618) U/L Albumin 3.4 L (3.5-5.0) g/dL Assessment and Plan Plan: Assessment: 1. Acute kidney injury mostly prerenal secondary to diuresis and anemia. Renal function fairly stable. 2. Chronic kidney disease stage IV secondary to nephrosclerosis with baseline creatinine near 2-2.3. 3. AML status post chemotherapy. 4. Pancytopenia. Oncology following. Status post blood transfusion this admission. Iron replete. 5. Volume overload. Resolved. 6. Hypertension with chronic kidney disease. Stable. 7. Chronic kidney disease mineral bone disease maintained on calcitriol. 8. Hypokalemia from poor oral intake and diuresis. Better post replacement. Plan: Encouraged oral intake. Continue to hold diuretics. Continue to monitor renal function and urine output. Maintain amlodipine. Add hydralazine.
--- NOTE | 2019-10-13 14:20 | P.PN ---
Subjective Progress Note Date: 10/13/19 Principal diagnosis: Acute Leukemia Spoke to dieticien today, patient has been introduced to many options for increasing PO intake. She is worried and states she has no appetite. Marinol has been added, zyprexa for nausea, which did greatly reduce emesis. Only one episode since starting. Her CBC is not recovering either and BM biopsy is planned for am. Objective - Vital Signs Vital signs: Vital Signs Temp 98.9 F 10/13/19 12:50 Pulse 103 H 10/13/19 12:50 Resp 22 10/13/19 12:50 BP 161/72 10/13/19 12:50 Pulse Ox 92 L 10/13/19 12:50 Intake & Output 10/12/19 10/13/19 10/13/19 18:59 06:59 18:59 Intake Total 334 Output Total 1400 400 Balance -1400 334 -400 Weight 49.9 kg 50.1 kg Intake: Blood Product 334 Platelet Irr Pheresis Pas 334 -C Unit [id number] Output: Urine 1400 400 Other: Voiding Method Toilet Toilet Toilet # Voids 0 - Exam - Constitutional General appearance: Present: malnourished body habitus, cooperative, mild distress, thin and chronically ill appearing - EENT Eyes: Present: anicteric sclerae, EOMI ENT: Present: hearing grossly normal, pharyngeal erythema - Respiratory Respiratory: bilateral: CTA (weak inspiratory effort) - Cardiovascular Rhythm: regular Heart sounds: normal: S1, S2 Abnormal Heart Sounds: Absent: systolic murmur, diastolic murmur, rub, S3 Gallop, S4 Gallop, click, other - Peripheral edema leg Peripheral Edema: bilateral: None - Gastrointestinal General gastrointestinal: Present: normal bowel sounds, soft - Neurologic Neurologic: Present: CNII-XII intact - Musculoskeletal Musculoskeletal: Present: generalized weakness - Psychiatric Psychiatric Comment(s): flat affect Psychiatric: Present: A&O x's 3, intact judgment & insight - Labs CBC & Chem 7: 10/13/19 07:27 10/13/19 07:27 Labs: Abnormal Lab Results - Last 24 Hours (Table) 10/13/19 10/13/19 Range/Units 07:27 07:27 WBC 0.5 L* (3.8-10.6) k/uL RBC 2.62 L (3.80-5.40) m/uL Hgb 8.3 L (11.4-16.0) gm/dL Hct 23.9 L (34.0-46.0) % Plt Count 11 L* D (150-450) k/uL BUN 45 H (7-17) mg/dL Creatinine 2.76 H (0.52-1.04) mg/dL Calcium 8.2 L (8.4-10.2) mg/dL Lactate Dehydrogenase 1122 H (313-618) U/L Albumin 3.4 L (3.5-5.0) g/dL Assessment and Plan Plan: Assessment and Plan Nausea and vomiting: Improving - Zyprexa initated 10/06 - with some improvement Mucocytits: Improving - Stable - Continue supportive care Protein calorie Malnutrition: - Marinol added - Dieticien following - Mucocytis and Nausea interventions increased. - Have asked for a dobhoff to increase protein per recs of dieticien and dieticien to manage feedings Dyspnea - improving This is felt to be due to fluid overload. - Cardiology following The patient may need to resume IV hydration because of her underlying tumor lysis, depending on renal function. - Nephrology is following. Defer to Them for fluid management. Acute myeloid leukemia - Continue venetoclax. - Tumor lysis labs are improving - Renal function remains stagnant - stable - Likely need repeat BM soon without improvement in CBC Left upper extremity swelling - Picc associated DVT, status post removal of the line and replacement of the other side. - platelets prior - Unable to anticoagulate due to thrombocytopenia Pancytopenia - Secondary to AML and Chemo - Worsening Platelets to transfuse today for 10K - Daily CBC - Irradiated products (crossmatched preferred) Keep hemoglobin greater than 7 and platelets greater than 10. Platelets appear refractory, will order crossmatched platelets for future units, anticipate 3 units this week, continue irradiated when crossmatched Plan: - Dobhoff for enteral feedings ordered and dieticien to manage TF recommendations, discussed with patient and daughter agreeable - Plan for BM biopsy in am. - Crossmatched Irradiated Platelets moving Forward, although until they are available continue to transfuse irradiated platelets - Transfusion platelets today irradiated and one hour post CBC - Per Dr. Escobar Stop Venetoclax and Bone Marrow biopsy to be scheduled tomorrow Physician Attest: I have completed the full history and physical and agree with above dictation, dictated as a scribe.
--- NOTE | 2019-10-13 14:43 | P.PN ---
Subjective Progress Note Date: 10/13/19 Principal diagnosis: Thrombocytopenia Patient was seen and examined. Family member at bedside. No acute events overnight. Patient reports fatigue and tiredness. She reports exertional shortness of breath. She denies any chest pain or palpitations. Patient reports very poor appetite and nausea just at the thought of eating food. No fever or chills. Objective - Vital Signs Vital signs: Vital Signs Temp 98.9 F 10/13/19 12:50 Pulse 103 H 10/13/19 12:50 Resp 22 10/13/19 12:50 BP 161/72 10/13/19 12:50 Pulse Ox 92 L 10/13/19 12:50 Intake & Output 10/12/19 10/13/19 10/13/19 18:59 06:59 18:59 Intake Total 334 Output Total 1400 700 Balance -1400 334 -700 Weight 49.9 kg 50.1 kg Intake: Blood Product 334 Platelet Irr Pheresis Pas 334 -C Unit [id number] Output: Urine 1400 700 Other: Voiding Method Toilet Toilet Toilet # Voids 0 - Exam General: [non toxic, appears pale], [no distress], [appears at stated age] Derm: [warm], [dry] Head: [atraumatic], [normocephalic], [symmetric] Eyes: [EOMI], [no lid lag], [anicteric sclera] Mouth: [no lip lesion], [mucus membranes moist] Cardiovascular: [S1S2 reg], [systolic murmur], [positive DP pulse bilateral], Lungs: [Decreased breath sounds bilateral], [no rhonchi, no rales] , [no accessory muscle use] Abdominal: [soft], [ nontender to palpation], [no guarding], [no appreciable organomegaly] Ext: [no gross muscle atrophy], [no edema], [no contractures] Neuro: [no focal neuro deficits] Psych: [Alert], [oriented], [appropriate affect] - Labs CBC & Chem 7: 10/13/19 07:27 10/13/19 07:27 Labs: Abnormal Lab Results - Last 24 Hours (Table) 10/13/19 10/13/19 Range/Units 07: 07:27 WBC 0.5 L* (3.8-10.6) k/uL RBC 2.62 L (3.80-5.40) m/uL Hgb 8.3 L (11.4-16.0) gm/dL Hct 23.9 L (34.0-46.0) % Plt Count 11 L* D (150-450) k/uL BUN 45 H (7-17) mg/dL Creatinine 2.76 H (0.52-1.04) mg/dL Calcium 8.2 L (8.4-10.2) mg/dL Lactate Dehydrogenase 1122 H (313-618) U/L Albumin 3.4 L (3.5-5.0) g/dL Assessment and Plan Assessment: Protein calorie malnutrition 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 Dietitian has been consulted. Family at bedside aware. Stop Zyprexa as she has received 3 days for chemotherapy-induced nausea. Continue Marinol. Her hemoglobin is 8.3. Platelet count 11. Likely related to AML. Plans: Has received 6 units PRBC so far. Total of 8 units platelets. Waiting on HLA crossmatched irradiated platelets. Daily CBC. Follow hematology recommendations. Transfuse PRBC if hemoglobin is less than 7. Transfuse if platelet count less than 10. Likely from chemotherapy. Continue acyclovir. Continue Decadron oral and stomatitis cocktail. Received PICC line in the left upper extremity. Duplex has been reordered and there is a thrombus around the PICC line which was taken out. Oncology does not recommend anticoagulation at this time. BUN 45, creatinine 2.76. Likely related to dehydration and poor oral intake. Plans: Restart calcitriol. Avoid nephrotoxins. Daily BMP. BP 161/72. Plans: Procardia discontinued yesterday due to interaction with chem otherapy agent. Started on amlodipine and hydralazine added this morning. Monitor vitals, adjust medications as necessary. Plans: Resume Synthroid. Repeat TSH in 6 weeks.
[2019-10-13] MEDS: hydrALAZINE HCL 25 MG TAB PO SCH ×2 (16:57→21:51)
[2019-10-14] MEDS: SALT AND SODA MOUTHWASH 1,000 ML PO SCH ×7 (00:12→22:10)
[2019-10-14] MEDS: DEXAMETHASONE ORAL 4 MG/ML VIAL PO SCH ×4 (00:18→17:12)
[2019-10-14] MEDS: LEVOTHYROXINE 88 MCG TAB PO SCH (06:25)
[2019-10-14 06:54] LABS: HGB 8.3 gm/dL (11.4-16.0); MCH 31.5 pg (25.0-35.0); MCHC 34.6 g/dL (31.0-37.0); Mean Platelet Volume 12.6; RBC 2.63 m/uL (3.80-5.40); RDW 14.2 % (11.5-15.5)
[2019-10-14 07:07] LABS: Platelet Count 8 k/uL (150-450); WBC 0.5 k/uL (3.8-10.6)
[2019-10-14 07:21] LABS: Calcium 8.1 mg/dL (8.4-10.2); Magnesium 1.6 mg/dL (1.6-2.3); Potassium 3.5 mmol/L (3.5-5.1)
[2019-10-14] MEDS: ONDANSETRON 4 MG/2 ML VIAL IVP PRN (09:50)
[2019-10-14] MEDS: ACYCLOVIR 200 MG CAP PO SCH ×2 (09:51→20:09)
[2019-10-14] MEDS: hydrALAZINE HCL 25 MG TAB PO SCH ×3 (09:52→22:08)
[2019-10-14] MEDS: FOLIC ACID 1 MG TAB PO SCH (09:52)
[2019-10-14] MEDS: amLODIPine 10 MG TAB PO SCH (09:52)
[2019-10-14] MEDS: PANTOPRAZOLE 40 MG/10 ML VIAL IVP SCH ×2 (09:52→20:09)
[2019-10-14] MEDS: VENCLEXTA 100 MG PO SCH ×2 (09:52→13:30)
[2019-10-14] MEDS: SENNOSIDES-DOCUSATE SODIUM 1 EACH TAB PO SCH ×2 (09:53→20:09)
[2019-10-14] MEDS: MAG HYDROX/AL HYDROX/SIMETH 30 ML, LIDOCAINE VISCOUS 30 ML, diphenhydrAMINE ELIXIR 75 M... PO SCH ×12 (09:56→22:09)
--- NOTE | 2019-10-14 10:42 | P.PN ---
Subjective Patient is seen in follow-up for acute kidney injury on chronic kidney disease. Renal function is fairly stable. Hemoglobin stable at 8.3 this morning. She has received blood transfusions this admission. She remains pancytopenic. Denies chest pain or shortness of breath. Oral intake just fair. Could not tolerate Ensure. She has been voiding. No changes overnight. No edema. Feels constipated. Vital signs are stable. General: The patient appeared well nourished and normally developed. HEENT: Head exam is unremarkable. Neck is without jugular venous distension. LUNGS: Lungs are clear to auscultation and percussion. Breath sounds decreased. HEART: Rate and Rhythm are regular. ABDOMEN: Soft, nontender. EXTREMITITES: No clubbing, cyanosis, or edema. Objective - Vital Signs Vital signs: Vital Signs Temp 99.2 F 10/14/19 04:45 Pulse 95 10/14/19 04:45 Resp 22 10/14/19 04:45 BP 149/65 10/14/19 04:45 Pulse Ox 92 L 10/14/19 04:45 Intake & Output 10/13/19 10/14/19 10/14/19 18:59 06:59 18:59 Intake Total 240 Output Total 950 600 0 Balance -950 -600 240 Weight 50.1 kg 49 kg Intake: Oral 240 Output: Urine 950 600 0 Other: Voiding Method Toilet Toilet # Voids 0 0 - Labs CBC & Chem 7: 10/14/19 06:31 10/14/19 06:31 Labs: Abnormal Lab Results - Last 24 Hours (Table) 10/14/19 10/14/19 Range/Units 06:31 06:31 WBC 0.5 L* (3.8-10.6) k/uL RBC 2.63 L (3.80-5.40) m/uL Hgb 8.3 L (11.4-16.0) gm/dL Hct 24.0 L (34.0-46.0) % Plt Count 8 L* (150-450) k/uL BUN 44 H (7-17) mg/dL Creatinine 2.70 H (0.52-1.04) mg/dL Calcium 8.1 L (8.4-10.2) mg/dL Assessment and Plan Plan: Assessment: 1. Acute kidney injury mostly prerenal secondary to diuresis and anemia. Renal function fairly stable. 2. Chronic kidney disease stage IV secondary to nephrosclerosis with baseline creatinine near 2-2.3. 3. AML status post chemotherapy. 4. Pancytopenia. Oncology following. Status post blood transfusion this admission. Iron replete. 5. Volume overload. Resolved. 6. Hypertension with chronic kidney disease. Better controlled. 7. Chronic kidney disease mineral bone disease maintained on calcitriol. 8. Hypokalemia from poor oral intake and diuresis. Better post replacement. Plan: Encouraged oral intake. Continue to hold diuretics. Continue to monitor renal function and urine output. Add lactulose as needed for constipation.
--- NOTE | 2019-10-14 10:45 | CDI ---
Documentation Clarification Form Date: 10/14/2019 10:26:49 AM From: Leelee Del Rio CCS, CCDS Admit Date: 09/27/2019 09:53:00 AM Patient Name: Roxane Jules Visit Number: [id number] Discharge Date: ATTENTION: The Clinical Documentation Specialists (CDI) and [facility] Coding Staff appreciate your assistance in clarifying documentation. Please respond to the clarification below the line at the bottom and electronically sign. The CDI & [facility] Coding staff will review the response and follow-up if needed. Please note: Queries are made part of the Legal Health Record. If you have any questions, please contact the author of this message via ITS. Dr. Milad Fernandes: Per the 10/12 Medical Management Progress Note: "Protein Calorie Malnutrition" is documented without further specificity. History/Risk Factors: ITP, Hypertension, CKD stage IV, Anemia. Clinical Indicators: 74 yo female patient, admitted on 09/26 for chemotherapy to treat AML Labs 09/26 total Protein 8.2, Albumin 4.4-3.3*; 09/27: Total Protein 6.0*, Albumin 2.8*; 09/28 total Protein 5.7*, Albumin 2.7*; 10/12 Total Protein 6.7, Albumin 3.4*. Current BMI: 24.2 Nutritional Assessment on Admission: Diet tolerated: [id number]. On 10/02: Intake: poor (25-50%), has lip mouth sores: difficult to eat, Fair appetite; Given Ensure Enlive BID. Wt 45.767 kg. Ht 4 ft 8 in. BMI 22.6. Inadequate energy balance. 10/12: Dietitian consult. Diet: 0-25%, Weight: 59 kg. Refused some food due to nausea. Treatment: Oral supplements, soft foods, high protein snacks. Marinol added for nausea. Chemotherapy continued. Transfusions: PRBC, Platelets, Irradiated Platelets. IV Promethazine, IV Cefepime, IV Vancomycin, IV Calcium Gluconate, IV fluid boluses, IV Zofran. Oncology requested Dofhoff to increase protein per recommendation by dietitician. In your professional opinion, can you please clarify if these findings signify one of the following conditions? Mild Protein-Calorie Malnutrition Moderate Protein-Calorie Malnutrition Severe Protein-Calorie Malnutrition Other condition, please specify Unable to determine (Last Revision: September 2018) mild MTDD
[2019-10-14 11:40] LABS: Reticulocyte % 1.9 % (0.5-2.0)
[2019-10-14] MEDS ORDERED: PROPOFOL 10 MG/ML 20 ML VIAL IV ONE (12:39)
[2019-10-14] MEDS ORDERED: LACTATED RINGERS 1,000 ML IV ONE ×2 (12:39)
--- NOTE | 2019-10-14 13:05 | P.PCN ---
Date of Procedure: 10/14/19 Preoperative Diagnosis: Acute myeloid leukemia, status post induction chemotherapy. Persistent pancytopenia Postoperative Diagnosis: Same Procedure(s) Performed: Bone marrow aspiration and biopsy Anesthesia: MAC Surgeon: Keagan Escobar Angular Developer #1: Stated None Estimated Blood Loss (ml): 1 Pathology: other Condition: stable Disposition: floor Indications for Procedure: Acute myeloid leukemia, status post induction chemotherapy. Persistent pancytopenia. Bone marrow aspiration biopsy is being done to assess response Operative Findings: Adequate samples Description of Procedure: The procedure was explained in detail to the patient on the floor. Informed consent was obtained on the floor. She was brought to the outpatient endoscopy suite and placed in the left lateral decubitus position. The area over both posterior iliac crest was cleaned and prepped with chlorhexidine and sterile draping. IV sedation was then initiated. Local anesthesia was administered with Xylocaine to the right posterior iliac crest. A Jamshidi needle was then inserted and bone marrow aspirate and biopsy obtained. On withdrawal of the needle hemostasis was easily achieved. Blood loss was minimal and recovery from sedation was satisfactory. She appeared to have tolerated the procedure well without any obvious immediate complications.
[2019-10-14] MEDS: polyethylene glycoL 3350 17 GM POWD.PACK PO SCH (13:30)
[2019-10-14] MEDS: MAGNESIUM SULFATE-D5W PMX 1 GM in DEXTROSE/WATER 1 100ML.BAG IVPB SCH ×2 (13:30→15:31)
--- NOTE | 2019-10-14 15:29 | P.PN ---
Subjective Progress Note Date: 10/14/19 Principal diagnosis: Acute Leukemia Plan for bone marrow biopsy today. Platelet transfusion today Plt count 8K Objective - Vital Signs Vital signs: Vital Signs Temp 97.9 F 10/14/19 13:41 Pulse 90 10/14/19 13:41 Resp 22 10/14/19 08:00 BP 153/71 10/14/19 13:41 Pulse Ox 92 L 10/14/19 13:41 Intake & Output 10/13/19 10/14/19 10/14/19 18:59 06:59 18:59 Intake Total 200 Output Total 950 600 0 Balance -950 -600 200 Weight 50.1 kg 49 kg Intake: IV 200 Oral 0 Output: Urine 950 600 0 Other: Voiding Method Toilet Toilet Toilet # Voids 0 0 - Exam - Constitutional General appearance: Present: malnourished body habitus, cooperative, mild distress, thin and chronically ill appearing - EENT Eyes: Present: anicteric sclerae, EOMI ENT: Present: hearing grossly normal, pharyngeal erythema - Respiratory Respiratory: bilateral: CTA (weak inspiratory effort) - Cardiovascular Rhythm: regular Heart sounds: normal: S1, S2 Abnormal Heart Sounds: Absent: systolic murmur, diastolic murmur, rub, S3 Gallop, S4 Gallop, click, other - Peripheral edema leg Peripheral Edema: bilateral: None - Gastrointestinal General gastrointestinal: Present: normal bowel sounds, soft - Neurologic Neurologic: Present: CNII-XII intact - Musculoskeletal Musculoskeletal: Present: generalized weakness - Psychiatric Psychiatric Comment(s): flat affect Psychiatric: Present: A&O x's 3, intact judgment & insight - Labs CBC & Chem 7: 10/14/19 06:31 10/14/19 06:31 Labs: Abnormal Lab Results - Last 24 Hours (Table) 10/14/19 10/14/19 Range/Units 06:31 06:31 WBC 0.5 L* (3.8-10.6) k/uL RBC 2.63 L (3.80-5.40) m/uL Hgb 8.3 L (11.4-16.0) gm/dL Hct 24.0 L (34.0-46.0) % Plt Count 8 L* (150-450) k/uL BUN 44 H (7-17) mg/dL Creatinine 2.70 H (0.52-1.04) mg/dL Calcium 8.1 L (8.4-10.2) mg/dL Assessment and Plan Plan: Assessment and Plan Nausea and vomiting: Improving - Zyprexa initated 10/06 - with some improvement Mucocytits: Improving - Stable - Continue supportive care Protein calorie Malnutrition: - Marinol added - Dieticien following - Mucocytis and Nausea interventions increased. - Have asked for a dobhoff to increase protein per recs of dieticien and dieticien to manage feedings. I do not see this order anymore, will further review. Dyspnea - improving This is felt to be due to fluid overload. - Cardiology following The patient may need to resume IV hydration because of her underlying tumor lysis, depending on renal function. - Nephrology is following. Defer to Them for fluid management. Acute myeloid leukemia - Continue venetoclax. - Tumor lysis labs are improving - Renal function remains stagnant - stable - Likely need repeat BM soon without improvement in CBC Left upper extremity swelling - Picc associated DVT, status post removal of the line and replacement of the other side. - platelets prior - Unable to anticoagulate due to thrombocytopenia Pancytopenia - Secondary to AML and Chemo - Worsening Platelets to transfuse today for 10K - Daily CBC - Irradiated products (crossmatched preferred) Keep hemoglobin greater than 7 and platelets greater than 10. Platelets appear refractory, crossmatched arrived today and first unit to be given this evening Plan: - Dobhoff for enteral feedings ordered and dieticien to manage TF recommendations, discussed with patient and daughter agreeable - Status post BM biopsy await results. Physician Attest: I have completed the full history and physical and agree with above dictation, dictated as a scribe.
[2019-10-14] MEDS ORDERED: LACTULOSE 20 GM/30 ML CUP PO PRN (16:48)
--- NOTE | 2019-10-14 16:52 | P.PN ---
Subjective Progress Note Date: 10/14/19 Principal diagnosis: Thrombocytopenia Patient was seen and examined. No acute events overnight. Patient reports fatigue and tiredness. She denies any chest pain or palpitations. Patient reports very poor appetite and nausea just at the thought of eating food. No fever or chills. Her condition is unchanged from yesterday. Objective - Vital Signs Vital signs: Vital Signs Temp 97.7 F 10/14/19 16:36 Pulse 91 10/14/19 16:36 Resp 18 10/14/19 16:36 BP 142/68 10/14/19 16:36 Pulse Ox 94 L 10/14/19 16:36 Intake & Output 10/13/19 10/14/19 10/14/19 18:59 06:59 18:59 Intake Total 680 Output Total 950 600 0 Balance -950 -600 680 Weight 50.1 kg 49 kg Intake: IV 200 Oral 480 Blood Product 0 Platelet Irr Pheresis Pas 0 -C Unit [id number] Output: Urine 950 600 0 Other: Voiding Method Toilet Toilet Toilet # Voids 0 0 - Exam General: [non toxic, appears pale], [no distress], [appears at stated age] Derm: [warm], [dry] Head: [atraumatic], [normocephalic], [symmetric] Eyes: [EOMI], [no lid lag], [anicteric sclera] Mouth: [no lip lesion], [mucus membranes moist] Cardiovascular: [S1S2 reg], [systolic murmur, tachycardic], [positive DP pulse bilateral], Lungs: [Decreased breath sounds bilateral], [no rhonchi, no rales] , [no accessory muscle use] Abdominal: [soft], [ nontender to palpation], [no guarding], [no appreciable organomegaly] Ext: [no gross muscle atrophy], [no edema], [no contractures] Neuro: [no focal neuro deficits] Psych: [Alert], [oriented], [appropriate affect] - Labs CBC & Chem 7: 10/14/19 06:31 10/14/19 06:31 Labs: Abnormal Lab Results - Last 24 Hours (Table) 10/14/19 10/14/19 Range/Units 06:31 06:31 WBC 0.5 L* (3.8-10.6) k/uL RBC 2.63 L (3.80-5.40) m/uL Hgb 8.3 L (11.4-16.0) gm/dL Hct 24.0 L (34.0-46.0) % Plt Count 8 L* (150-450) k/uL BUN 44 H (7-17) mg/dL Creatinine 2.70 H (0.52-1.04) mg/dL Calcium 8.1 L (8.4-10.2) mg/dL Assessment and Plan Assessment: Protein calorie malnutrition 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 Dietitian has been consulted. Family at bedside aware. Continue Marinol. Her hemoglobin is 8.3. Platelet count 8. Likely related to AML. Plans: Has received 6 units PRBC so far. Total of 8 units platelets. Waiting on HLA crossmatched irradiated platelets. Daily CBC. Follow hematology recommendations. Transfuse PRBC if hemoglobin is less than 7. Transfuse if platelet count less than 10 with plans to transfuse 1 unit platelet today. Likely from chemotherapy. Continue acyclovir. Continue Decadron oral and stomatitis cocktail. Received PICC line in the left upper extremity. Duplex has been reordered and there is a thrombus around the PICC line which was taken out. Oncology does not recommend anticoagulation at this time. BUN 44, creatinine 2.7. Likely related to dehydration and poor oral intake. Plans: Restart calcitriol. Avoid nephrotoxins. Daily BMP. BP 142/68. Plans: Procardia discontinued due to interaction with chemotherapy agent. Started on amlodipine and hydralazine added. Monitor vitals, adjust medications as necessary. Plans: Resume Synthroid. Repeat TSH in 6 weeks.
[2019-10-14] MEDS: ACETAMINOPHEN TAB 325 MG TAB PO PRN (17:12)
[2019-10-15] MEDS: DEXAMETHASONE ORAL 4 MG/ML VIAL PO SCH ×5 (00:25→23:16)
[2019-10-15] MEDS: ONDANSETRON 4 MG/2 ML VIAL IVP PRN ×2 (03:04→13:19)
[2019-10-15] MEDS: SALT AND SODA MOUTHWASH 1,000 ML PO SCH ×6 (03:05→23:15)
[2019-10-15] MEDS: LEVOTHYROXINE 88 MCG TAB PO SCH (05:53)
[2019-10-15] MEDS: MAG HYDROX/AL HYDROX/SIMETH 30 ML, LIDOCAINE VISCOUS 30 ML, diphenhydrAMINE ELIXIR 75 M... PO SCH ×12 (08:01→21:00)
[2019-10-15] MEDS: hydrALAZINE HCL 25 MG TAB PO SCH ×3 (08:02→21:00)
[2019-10-15] MEDS: FOLIC ACID 1 MG TAB PO SCH (08:02)
[2019-10-15] MEDS: ACYCLOVIR 200 MG CAP PO SCH ×2 (08:02→20:58)
[2019-10-15] MEDS: amLODIPine 10 MG TAB PO SCH (08:02)
[2019-10-15] MEDS: SENNOSIDES-DOCUSATE SODIUM 1 EACH TAB PO SCH ×2 (08:03→20:59)
[2019-10-15] MEDS: polyethylene glycoL 3350 17 GM POWD.PACK PO SCH (08:03)
[2019-10-15] MEDS: PANTOPRAZOLE 40 MG/10 ML VIAL IVP SCH ×2 (08:03→20:58)
[2019-10-15] MEDS: VENCLEXTA 100 MG PO SCH (08:03)
[2019-10-15 08:04] LABS: HCT 23.3 % (34.0-46.0); MCH 30.7 pg (25.0-35.0); MCHC 34.1 g/dL (31.0-37.0); MCV 89.8 fL (80.0-100.0); Mean Platelet Volume 14.3; RDW 14.4 % (11.5-15.5)
[2019-10-15 08:08] LABS: WBC 0.8 k/uL (3.8-10.6)
[2019-10-15 08:09] LABS: Platelet Count 15 k/uL (150-450)
[2019-10-15 08:30] LABS: Calcium 8.3 mg/dL (8.4-10.2); Potassium 3.6 mmol/L (3.5-5.1)
--- NOTE | 2019-10-15 11:37 | P.PN ---
Subjective Patient is seen in follow-up for acute kidney injury on chronic kidney disease. Renal function is fairly stable. Hemoglobin stable at 8.0 this morning. She has received blood as well as platelet transfusions this admission. She remains pancytopenic. Denies chest pain or shortness of breath. Oral intake just fair. Could not tolerate Ensure. She has been voiding. No changes overnight. No edema. Vital signs are stable. General: The patient appeared well nourished and normally developed. HEENT: Head exam is unremarkable. Neck is without jugular venous distension. LUNGS: Lungs are clear to auscultation and percussion. Breath sounds decreased. HEART: Rate and Rhythm are regular. ABDOMEN: Soft, nontender. EXTREMITITES: No clubbing, cyanosis, or edema. Objective - Vital Signs Vital signs: Vital Signs Temp 98.1 F 10/15/19 04:25 Pulse 99 10/15/19 04:25 Resp 22 10/15/19 04:25 BP 137/66 10/15/19 04:25 Pulse Ox 92 L 10/15/19 04:25 Intake & Output 10/14/19 10/15/19 10/15/19 18:59 06:59 18:59 Intake Total 1454 240 530 Output Total 0 900 500 Balance 1454 -660 30 Weight 49.4 kg Intake: IV 200 Oral 960 240 530 Blood Product 294 Platelet Irr Pheresis Pas 294 -C Unit [id number] Output: Urine 0 900 500 Other: Voiding Method Toilet Toilet # Voids 0 1 # Bowel Movements 1 - Labs CBC & Chem 7: 10/15/19 07:40 10/15/19 07:40 Labs: Abnormal Lab Results - Last 24 Hours (Table) 10/15/19 10/15/19 Range/Units 07:40 07:40 WBC 0.8 L* (3.8-10.6) k/uL RBC 2.60 L (3.80-5.40) m/uL Hgb 8.0 L (11.4-16.0) gm/dL Hct 23.3 L (34.0-46.0) % Plt Count 15 L* D (150-450) k/uL BUN 48 H (7-17) mg/dL Creatinine 2.68 H (0.52-1.04) mg/dL Calcium 8.3 L (8.4-10.2) mg/dL Assessment and Plan Plan: Assessment: 1. Acute kidney injury mostly prerenal secondary to diuresis and anemia. Renal function fairly stable. 2. Chronic kidney disease stage IV secondary to nephrosclerosis with baseline creatinine near 2-2.3. 3. AML status post chemotherapy. 4. Pancytopenia. Oncology following. Status post blood transfusion this admission. Iron replete. 5. Volume overload. Resolved. 6. Hypertension with chronic kidney disease. Better controlled. 7. Chronic kidney disease mineral bone disease maintained on calcitriol. 8. Hypokalemia from poor oral intake and diuresis. Better post replacement. Plan: Encouraged oral intake. Continue to hold diuretics. Continue to monitor renal function and urine output.
--- NOTE | 2019-10-15 13:17 | P.PN ---
Subjective Progress Note Date: 10/15/19 Principal diagnosis: Acute Leukemia Discussed Dobhoff with surgery today and Dieticien. Platelets are 15K and will transfuse this now in preparation for procedure. Objective - Vital Signs Vital signs: Vital Signs Temp 98.1 F 10/15/19 04:25 Pulse 99 10/15/19 04:25 Resp 22 10/15/19 04:25 BP 137/66 10/15/19 04:25 Pulse Ox 92 L 10/15/19 04:25 Intake & Output 10/14/19 10/15/19 10/15/19 18:59 06:59 18:59 Intake Total 1454 240 530 Output Total 0 900 500 Balance 1454 -660 30 Weight 49.4 kg Intake: IV 200 Oral 960 240 530 Blood Product 294 Platelet Irr Pheresis Pas 294 -C Unit [id number] Output: Urine 0 900 500 Other: Voiding Method Toilet Toilet # Voids 0 1 # Bowel Movements 1 - Exam - Constitutional General appearance: Present: malnourished body habitus, cooperative, mild distress, thin and chronically ill appearing - EENT Eyes: Present: anicteric sclerae, EOMI ENT: Present: hearing grossly normal, pharyngeal erythema - Respiratory Respiratory: bilateral: CTA (weak inspiratory effort) - Cardiovascular Rhythm: regular Heart sounds: normal: S1, S2 Abnormal Heart Sounds: Absent: systolic murmur, diastolic murmur, rub, S3 Gallop, S4 Gallop, click, other - Peripheral edema leg Peripheral Edema: bilateral: None - Gastrointestinal General gastrointestinal: Present: normal bowel sounds, soft - Neurologic Neurologic: Present: CNII-XII intact - Musculoskeletal Musculoskeletal: Present: generalized weakness - Psychiatric Psychiatric Comment(s): flat affect Psychiatric: Present: A&O x's 3, intact judgment & insight - Labs CBC & Chem 7: 10/15/19 07:40 10/15/19 07:40 Labs: Abnormal Lab Results - Last 24 Hours (Table) 10/15/19 10/15/19 Range/Units 07:40 07:40 WBC 0.8 L* (3.8-10.6) k/uL RBC 2.60 L (3.80-5.40) m/uL Hgb 8.0 L (11.4-16.0) gm/dL Hct 23.3 L (34.0-46.0) % Plt Count 15 L* D (150-450) k/uL BUN 48 H (7-17) mg/dL Creatinine 2.68 H (0.52-1.04) mg/dL Calcium 8.3 L (8.4-10.2) mg/dL Assessment and Plan Plan: Assessment and Plan Nausea and vomiting: Improving - Zyprexa initated 10/06 - with some improvement Mucocytits: Improving - Stable - Continue supportive care Protein calorie Malnutrition: - Marinol added - Dieticien following - Mucocytis and Nausea interventions increased. - Have asked for a dobhoff to increase protein per recs of dieticien and dieticien to manage feedings. I do not see this order anymore to IR, therefore will consult Gen surgery Dyspnea - improving This is felt to be due to fluid overload. - Cardiology following The patient may need to resume IV hydration because of her underlying tumor lysis, depending on renal function. - Nephrology is following. Defer to Them for fluid management. Acute myeloid leukemia - Continue venetoclax. - Tumor lysis labs are improving - Renal function remains stagnant - stable - Likely need repeat BM soon without improvement in CBC Left upper extremity swelling - Picc associated DVT, status post removal of the line and replacement of the other side. - platelets prior - Unable to anticoagulate due to thrombocytopenia Pancytopenia - Secondary to AML and Chemo - Worsening Platelets to transfuse today for 10K - Daily CBC - Irradiated products (crossmatched preferred) Keep hemoglobin greater than 7 and platelets greater than 10. Platelets appear refractory, crossmatched to be used. Plan: - Dobhoff for enteral feedings ordered and dieticien to manage TF recommendations, discussed with patient and daughter agreeable - Consult placed for Dr. Nguyen. Discussed with him and crossmatched platelets prior - Status post BM biopsy 10/14/19 await results. Physician Attest: I have completed the full history and physical and agree with above dictation, dictated as a scribe.
[2019-10-15] MEDS ORDERED: TRIMETHOBENZAMIDE 100 MG/ML 2 ML VIAL IM STA (13:37)
--- NOTE | 2019-10-15 14:00 | P.GSCN ---
History of Present Illness Consult date: 10/15/19 Reason for Consult: nmalnutrition History of present illness: this a 74-year-old female who is being treated for AML. Patient has dentures and she is unable to eat anything significant. I will see her regarding Dobbhoff tube placement Past Medical History Past Medical History: Blood Disorder, Cancer, Hypertension, Renal Disease Additional Past Medical History / Comment(s): Anemia, Stage 4 kidney disease, AML- started inpt. chemo 09/27/19- History of Any Multi-Drug Resistant Organisms: None Reported Past Surgical History: Appendectomy, Hysterectomy Past Anesthesia/Blood Transfusion Reactions: No Reported Reaction Past Psychological History: No Psychological Hx Reported Past Alcohol Use History: None Reported Past Drug Use History: None Reported - Past Family History Father Family Medical History: Cancer Additional Family Medical History / Comment(s): esophageal cancer Mother Family Medical History: Hypertension Medications and Allergies Home Medications Medication Instructions Recorded Confirmed Type Allopurinol [Zyloprim] 100 mg PO DAILY 09/08/19 09/27/19 History Calcitriol [Rocaltrol] 0.25 mcg PO TU 09/08/19 09/27/19 History Folate 666 mcg PO DAILY 09/08/19 09/27/19 History Levothyroxine Sodium [Synthroid] 75 mcg PO DAILY 09/08/19 09/27/19 History Losartan Potassium [Cozaar] 25 mg PO DAILY 09/08/19 09/27/19 History NIFEdipine XL [Procardia XL] 30 mg PO DAILY 09/08/19 09/27/19 History Venetoclax [Venclexta] 100 mg PO DAILY 09/27/19 09/27/19 History Voriconazole [Vfend] 200 mg PO Q12HR 09/27/19 09/27/19 History Allergies Allergy/AdvReac Type Severity Reaction Status Date / Time No Known Allergies Allergy Verified 09/27/19 11:24 Surgical - Exam Vital Signs Temp Pulse Resp BP Pulse Ox 98.0 F 92 15 133/69 98 09/27/19 10:35 09/27/19 10:35 09/27/19 10:35 09/27/19 10:35 09/27/19 10:35 - General no distress - Eyes PERRL - ENT normal pinna - Neck no masses - Respiratory normal expansion - Cardiovascular Rhythm: regular - Abdomen Abdomen: soft, non tender Results - Labs 10/15/19 07:40 10/15/19 07:40 Abnormal Lab Results - Last 24 Hours (Table) 10/15/19 10/15/19 Range/Units 07:40 07:40 WBC 0.8 L* (3.8-10.6) k/uL RBC 2.60 L (3.80-5.40) m/uL Hgb 8.0 L (11.4-16.0) gm/dL Hct 23.3 L (34.0-46.0) % Plt Count 15 L* D (150-450) k/uL BUN 48 H (7-17) mg/dL Creatinine 2.68 H (0.52-1.04) mg/dL Calcium 8.3 L (8.4-10.2) mg/dL Diabetes panel 10/15/19 Range/Units 07:40 Sodium 137 (137-145) mmol/L Potassium 3.6 (3.5-5.1) mmol/L Chloride 101 (98-107) mmol/L Carbon Dioxide 24 (22-30) mmol/L BUN 48 H (7-17) mg/dL Creatinine 2.68 H (0.52-1.04) mg/dL Glucose 90 (74-99) mg/dL Calcium 8.3 L (8.4-10.2) mg/dL Calcium panel 10/15/19 Range/Units 07:40 Calcium 8.3 L (8.4-10.2) mg/dL Pituitary panel 10/15/19 Range/Units 07:40 Sodium 137 (137-145) mmol/L Potassium 3.6 (3.5-5.1) mmol/L Chloride 101 (98-107) mmol/L Carbon Dioxide 24 (22-30) mmol/L BUN 48 H (7-17) mg/dL Creatinine 2.68 H (0.52-1.04) mg/dL Glucose 90 (74-99) mg/dL Calcium 8.3 L (8.4-10.2) mg/dL Adrenal panel 10/15/19 Range/Units 07:40 Sodium 137 (137-145) mmol/L Potassium 3.6 (3.5-5.1) mmol/L Chloride 101 (98-107) mmol/L Carbon Dioxide 24 (22-30) mmol/L BUN 48 H (7-17) mg/dL Creatinine 2.68 H (0.52-1.04) mg/dL Glucose 90 (74-99) mg/dL Calcium 8.3 L (8.4-10.2) mg/dL Assessment and Plan Assessment: mild attrition. Patient will receive Dobbhoff tube placement.
--- NOTE | 2019-10-15 14:30 | P.PN ---
Subjective Progress Note Date: 10/15/19 Principal diagnosis: Thrombocytopenia Patient was seen and examined. No acute events overnight. Patient reports fatigue and tiredness. She denies any chest pain or palpitations. Patient reports very poor appetite and nausea just at the thought of eating food. No fever or chills. Her condition is unchanged from yesterday. Patient reports a small bowel movement today. Objective - Vital Signs Vital signs: Vital Signs Temp 98.1 F 10/15/19 14:26 Pulse 88 10/15/19 14:26 Resp 16 10/15/19 14:26 BP 142/68 10/15/19 14:26 Pulse Ox 92 L 10/15/19 14:26 Intake & Output 10/14/19 10/15/19 10/15/19 18:59 06:59 18:59 Intake Total 1454 240 530 Output Total 0 900 500 Balance 1454 -660 30 Weight 49.4 kg 49.4 kg Intake: IV 200 Oral 960 240 530 Blood Product 294 0 Platelet Irr Pheresis Pas 294 0 -C Unit [id number] Output: Urine 0 900 500 Other: Voiding Method Toilet Toilet # Voids 0 1 # Bowel Movements 1 - Exam General: [non toxic, appears pale], [no distress], [appears at stated age] Derm: [warm], [dry] Head: [atraumatic], [normocephalic], [symmetric] Eyes: [EOMI], [no lid lag], [anicteric sclera] Mouth: [no lip lesion], [mucus membranes moist] Cardiovascular: [S1S2 reg], [systolic murmur], [positive DP pulse bilateral], Lungs: [Decreased breath sounds bilateral], [no rhonchi, no rales] , [no accessory muscle use] Abdominal: [soft], [ nontender to palpation], [no guarding], [no appreciable organomegaly] Ext: [no gross muscle atrophy], [no edema], [no contractures] Neuro: [no focal neuro deficits] Psych: [Alert], [oriented], [appropriate affect] - Labs CBC & Chem 7: 10/15/19 07:40 10/15/19 07:40 Labs: Abnormal Lab Results - Last 24 Hours (Table) 10/15/19 10/15/19 Range/Units 07:40 07:40 WBC 0.8 L* (3.8-10.6) k/uL RBC 2.60 L (3.80-5.40) m/uL Hgb 8.0 L (11.4-16.0) gm/dL Hct 23.3 L (34.0-46.0) % Plt Count 15 L* D (150-450) k/uL BUN 48 H (7-17) mg/dL Creatinine 2.68 H (0.52-1.04) mg/dL Calcium 8.3 L (8.4-10.2) mg/dL Assessment and Plan Assessment: Protein calorie malnutrition 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 Dietitian has been consulted. Family at bedside aware. Continue Marinol. Discussed with Dr. Nguyen for Dubhoff placement. Her hemoglobin is 8. Platelet count 15. Likely related to AML. Plans: Has received 6 units PRBC so far. Total of 9 units platelets. Waiting on HLA crossmatched irradiated platelets. Daily CBC. Follow hematology recommendations. Transfuse PRBC if hemoglobin is less than 7. Transfuse if platelet count less than 10. Likely from chemotherapy. Continue acyclovir. Continue Decadron oral and stomatitis cocktail. Received PICC line in the left upper extremity. Duplex has been reordered and there is a thrombus around the PICC line which was taken out. Oncology does not recommend anticoagulation at this time. BUN 48, creatinine 2.6.. Likely related to dehydration and poor oral intake. Plans: Restart calcitriol. Avoid nephrotoxins. Daily BMP. BP 142/68. Plans: Procardia discontinued due to interaction with chemotherapy agent. Started on amlodipine and hydralazine added. Monitor vitals, adjust medications as necessary. Plans: Resume Synthroid. Repeat TSH in 6 weeks.
--- NOTE | 2019-10-15 14:59 | XR ---
EXAMINATION TYPE: XR abdomen 1V DATE OF EXAM: 10/15/2019 COMPARISON: None INDICATION: Dobbhoff tube placement TECHNIQUE: Single view abdomen FINDINGS: There is prominent loops of bowel present within the midabdomen. Air is within the descending colon r egion. Psoas margins are normal. No organomegaly is present. Dobbhoff tube is present with tip in left upper quadrant of the abdomen. This appears to be the expec cielo region of the stomach. IMPRESSION: 1. Feeding tube with tip placement in left upper quadrant abdomen. 2. Nonspecific bowel gas with prominent mid bowel loops
[2019-10-15] MEDS: METOCLOPRAMIDE 5 MG/ML 2 ML VIAL IVP SCH ×2 (17:12→23:17)
[2019-10-16] MEDS: SALT AND SODA MOUTHWASH 1,000 ML PO SCH ×6 (02:45→23:34)
[2019-10-16] MEDS: LEVOTHYROXINE 88 MCG TAB PO SCH (06:19)
[2019-10-16] MEDS: DEXAMETHASONE ORAL 4 MG/ML VIAL PO SCH ×4 (06:19→23:34)
[2019-10-16 08:50] LABS: HCT 21.6 % (34.0-46.0); HGB 7.4 gm/dL (11.4-16.0); MCH 31.2 pg (25.0-35.0); MCV 91.7 fL (80.0-100.0); Mean Platelet Volume 14.1; RBC 2.36 m/uL (3.80-5.40); RDW 14.9 % (11.5-15.5)
[2019-10-16] MEDS: PANTOPRAZOLE 40 MG/10 ML VIAL IVP SCH ×2 (08:50→20:37)
[2019-10-16] MEDS: amLODIPine 10 MG TAB PO SCH (08:51)
[2019-10-16] MEDS: ACYCLOVIR 200 MG CAP PO SCH ×2 (08:51→20:37)
[2019-10-16] MEDS: FOLIC ACID 1 MG TAB PO SCH (08:52)
[2019-10-16] MEDS: hydrALAZINE HCL 25 MG TAB PO SCH ×3 (08:52→21:36)
[2019-10-16] MEDS: METOCLOPRAMIDE 5 MG/ML 2 ML VIAL IVP SCH ×3 (08:52→23:34)
[2019-10-16 08:53] LABS: WBC 0.8 k/uL (3.8-10.6)
[2019-10-16] MEDS: polyethylene glycoL 3350 17 GM POWD.PACK PO SCH (08:53)
[2019-10-16 08:54] LABS: Platelet Count 25 k/uL (150-450)
[2019-10-16] MEDS: MAG HYDROX/AL HYDROX/SIMETH 30 ML, LIDOCAINE VISCOUS 30 ML, diphenhydrAMINE ELIXIR 75 M... PO SCH ×12 (08:54→21:36)
[2019-10-16 08:55] LABS: Albumin 3.4 g/dL (3.5-5.0); Calcium 8.1 mg/dL (8.4-10.2); Potassium 3.3 mmol/L (3.5-5.1); Total Bilirubin 0.9 mg/dL (0.2-1.3); Total Protein 6.8 g/dL (6.3-8.2)
[2019-10-16] MEDS: SENNOSIDES-DOCUSATE SODIUM 1 EACH TAB PO SCH ×2 (09:20→20:37)
[2019-10-16] MEDS: VENCLEXTA 100 MG PO SCH (09:21)
[2019-10-16] MEDS ORDERED: ONDANSETRON 4 MG/2 ML VIAL IVP PRN (10:45)
--- NOTE | 2019-10-16 11:00 | P.PN ---
Progress Note - Text Progress Note Date: 10/16/19 The patient states she feels bloated. She also had an emesis this morning with medication. On exam vital signs are stable. Abdomen soft. Patient may have an ileus. Her tube feed rate will be decreased at 10 mL an hour. We will follow with you.
[2019-10-16] MEDS ORDERED: Potassium Replacement Protocol 1 EACH MISC MISCELLANE PRN (13:39)
--- NOTE | 2019-10-16 14:32 | P.PN ---
Subjective Progress Note Date: 10/16/19 Principal diagnosis: AML Nausea/vomiting Pancytopenia Mucositis LUE DVT Acute on chronic renal failure Dobhoff placed yesterday. Tube feeding started. Had bout of emesis today when tube feeds were at goal at 35 cc/hr, decreased rate to 10 cc after stopping for a while. No further vomiting but still nauseated. Objective - Vital Signs Vital signs: Vital Signs Temp 98.1 F 10/15/19 20:10 Pulse 95 10/15/19 20:10 Resp 18 10/15/19 20:10 BP 134/71 10/15/19 20:10 Pulse Ox 94 L 10/15/19 20:10 Intake & Output 10/15/19 10/15/19 10/16/19 06:59 18:59 06:59 Intake Total 240 1543 250 Output Total 900 950 200 Balance -660 593 50 Weight 49.4 kg 49.4 kg Intake: Oral 240 1250 150 Tube Feeding 100 Blood Product 293 Platelet Irr Pheresis Pas 293 -C Unit [id number] Output: Urine 900 950 200 Other: Voiding Method Toilet Toilet # Voids 1 # Bowel Movements 1 - Exam General: In no acute distress. HEENT: She does have conjunctival pallor. No scleral icterus. Mucosa moist. Neck: Neck supple. Lungs: No respiratory distress, on 3L NC. Heart: Regular rate. Abdomen: Soft. MSK: 4/4 strength in all 4 extremities. Neuro: Alert and oriented 3. Skin: No jaundice or rash. Psych: Appropriate affect. - Labs CBC & Chem 7: 10/16/19 07:16 10/16/19 07:16 Labs: Abnormal Lab Results - Last 24 Hours (Table) 10/15/19 10/15/19 Range/Units 07:40 07:40 WBC 0.8 L* (3.8-10.6) k/uL RBC 2.60 L (3.80-5.40) m/uL Hgb 8.0 L (11.4-16.0) gm/dL Hct 23.3 L (34.0-46.0) % Plt Count 15 L* D (150-450) k/uL BUN 48 H (7-17) mg/dL Creatinine 2.68 H (0.52-1.04) mg/dL Calcium 8.3 L (8.4-10.2) mg/dL Assessment and Plan Assessment: 1. AML 2. Pancytopenia due to leukemia and chemotherapy 3. Nausea/vomiting, due to chemotherapy 4. Mucositis due to chemotherapy 5. Dyspnea due to fluid overload 6. LUE DVT due to PICC line 7. Severe Malnutrition 8. Acute on chronic renal failure Plan: Ms. Jules is a very pleasant 74 yo female with newly found AML here for induction chemotherapy with venetoclax and dacogen, admitted on 09/27/19. She is having several toxicities from chemotherapy, including the following N/V which has improved with zyprexa, mucositis overall improving, and pancytopenia due to chemotherapy and leukemia. She is also not eating. Dobhoff placed and she was started on tube feeding. Would advance tube feed very slowly to avoid further nausea and vomiting. Hold off on adjusting antiemetics for now and will reassess in 1-2 days if tube feeding otherwise is tolerated. Plan to monitor CBC and supportive transfusion for Hgb <7 or plt <10, leukoreduced and irradiated blood products (crossmatched plt due to refractory thrombocytopenia). Continue tube feeding and watch for electrolyte derangements and supplement as needed. Diuresis for her dyspnea, nephrology and cardiology following. Await repeat BMB results from 10/14/19. Hold anticoagulation for LUE PICC associated DVT due to thrombocytopenia; PICC removed and placed on RUE. Discussed with pt and family at bedside and they are agreeable to the plan. All questions answered.
--- NOTE | 2019-10-16 15:19 | P.PN ---
Subjective Progress Note Date: 10/16/19 Follow-up for acute kidney injury. Denies any nausea vomiting diarrhea. Complains of some abdominal discomfort. Objective - Vital Signs Vital signs: Vital Signs Temp 98 F 10/16/19 11:30 Pulse 90 10/16/19 11:30 Resp 16 10/16/19 11:30 BP 142/72 10/16/19 11:30 Pulse Ox 97 10/16/19 11:30 Intake & Output 10/15/19 10/16/19 10/16/19 18:59 06:59 18:59 Intake Total 1543 660 95 Output Total 950 700 Balance 593 -40 95 Weight 49.4 kg Intake: Oral 1250 400 Tube Feeding 260 95 Blood Product 293 Platelet Irr Pheresis Pas 293 -C Unit [id number] Output: Urine 950 700 Other: Voiding Method Toilet Toilet Toilet Bedside Commode Bedside Commode # Voids 1 # Bowel Movements 1 - Exam No acute distress lying comfortable S1-S2 heard Lungs clear Abdomen distended No edema - Labs CBC & Chem 7: 10/16/19 07:16 10/16/19 07:16 Labs: Abnormal Lab Results - Last 24 Hours (Table) 10/16/19 10/16/19 Range/Units 07:16 07:16 WBC 0.8 L* (3.8-10.6) k/uL RBC 2.36 L (3.80-5.40) m/uL Hgb 7.4 L (11.4-16.0) gm/dL Hct 21.6 L (34.0-46.0) % Plt Count 25 L D (150-450) k/uL Sodium 136 L (137-145) mmol/L Potassium 3.3 L (3.5-5.1) mmol/L BUN 52 H (7-17) mg/dL Creatinine 2.75 H (0.52-1.04) mg/dL Glucose 125 H (74-99) mg/dL Calcium 8.1 L (8.4-10.2) mg/dL Albumin 3.4 L (3.5-5.0) g/dL Assessment and Plan Assessment: #1 acute kidney injury suspect prerenal process/progressive chronic kidney disease. Renal function stable. #2 chronic kidney disease stage IV secondary to nephrosclerosis baseline creatinine 2.0-2.3 MG per DL. #3 AML status post chemotherapy #4 abdominal distention rule out urinary retention #5 hypertension with chronic kidney disease #6 pancytopenia #7 mild hypokalemia Plan: #1 bladder scan to rule out urinary retention #2 renal function stable, replace potassium #3 avoid nephrotoxic agents and hypotensive episodes. #4 continue to hold diuretics for now.
[2019-10-16] MEDS: POTASSIUM CHLORIDE 20 MEQ in WATER FOR INJECTION 1 100ML.BAG IVPB SCH ×2 (16:03→19:53)
--- NOTE | 2019-10-16 18:04 | P.PN ---
Subjective Progress Note Date: 10/16/19 Principal diagnosis: Thrombocytopenia Patient was seen and examined. No acute events overnight. Patient reports fatigue and tiredness. She denies any chest pain or palpitations. Patient reports very poor appetite and nausea just at the thought of eating food. She underwent Dobbhoff placement and started on tube feeds overnight. This morning she had an episode of emesis and tube feeds were decreased to 10 mL per hour. Objective - Vital Signs Vital signs: Vital Signs Temp 98 F 10/16/19 11:30 Pulse 90 10/16/19 11:30 Resp 16 10/16/19 11:30 BP 142/72 10/16/19 11:30 Pulse Ox 97 10/16/19 11:30 Intake & Output 10/15/19 10/16/19 10/16/19 18:59 06:59 18:59 Intake Total 1543 660 135 Output Total 950 700 349 Balance 593 -40 -214 Weight 49.4 kg 50.1 kg Intake: Oral 1250 400 Tube Feeding 260 135 Blood Product 293 Platelet Irr Pheresis Pas 293 -C Unit [id number] Output: Urine 950 700 300 Post Void Residual 49 Other: Voiding Method Toilet Toilet Toilet Bedside Commode Bedside Commode # Voids 1 # Bowel Movements 1 - Exam General: [non toxic, appears pale], [no distress], [appears at stated age] Derm: [warm], [dry] Head: [atraumatic], [normocephalic], [symmetric], Dobbhoff in place Eyes: [EOMI], [no lid lag], [anicteric sclera] Mouth: [no lip lesion], [mucus membranes moist] Cardiovascular: [S1S2 reg], [systolic murmur with tachycardia], [positive DP pulse bilateral], Lungs: [Decreased breath sounds bilateral], [no rhonchi, no rales] , [no accessory muscle use] Abdominal: [soft], [ nontender to palpation], [no guarding], [no appreciable organomegaly] Ext: [no gross muscle atrophy], [no edema], [no contractures] Neuro: [no focal neuro deficits] Psych: [Alert], [oriented], [appropriate affect] - Labs CBC & Chem 7: 10/16/19 07:16 10/16/19 07:16 Labs: Abnormal Lab Results - Last 24 Hours (Table) 10/16/19 10/16/19 Range/Units 07:16 07:16 WBC 0.8 L* (3.8-10.6) k/uL RBC 2.36 L (3.80-5.40) m/uL Hgb 7.4 L (11.4-16.0) gm/dL Hct 21.6 L (34.0-46.0) % Plt Count 25 L D (150-450) k/uL Sodium 136 L (137-145) mmol/L Potassium 3.3 L (3.5-5.1) mmol/L BUN 52 H (7-17) mg/dL Creatinine 2.75 H (0.52-1.04) mg/dL Glucose 125 H (74-99) mg/dL Calcium 8.1 L (8.4-10.2) mg/dL Albumin 3.4 L (3.5-5.0) g/dL Assessment and Plan Assessment: Protein calorie malnutrition with chemotherapy-induced nausea and vomiting Hypokalemia Severe anemia with pancytopenia related to AML Herpes with mucositis Left upper extremity swelling with thrombus Acute kidney injury on probable chronic kidney disease Hypertension Subclinical hypothyroidism Resolved: Hyperkalemia, hypocalcemia, hypomagnesemia, hyponatremia, bradycardia with left bundle branch block, acute hypoxic respiratory failure Noyff placed October 14 and started on tube feeds. Dietitian has been consulted. Family at bedside aware. Continue Marinol. She had 3 days of [place]. Started on Reglan scheduled. Zofran as needed for nausea or vomiting. Potassium 3.3. Replace via protocol. Repeat BMP tomorrow morning. Her hemoglobin is 7.4. Platelet count 25. Likely related to AML. Plans: Has received 6 units PRBC so far. Total of 10 units platelets. Waiting on HLA crossmatched irradiated platelets. Daily CBC. Follow hematology recommendations. Transfuse PRBC if hemoglobin is less than 7. Transfuse if platelet count less than 10. Likely from chemotherapy. Continue acyclovir. Continue Decadron oral and stomatitis cocktail. Received PICC line in the left upper extremity. Duplex has been reordered and there is a thrombus around the PICC line which was taken out. Oncology does not recommend anticoagulation at this time. BUN 52, creatinine 2.75. Likely related to dehydration and poor oral intake. Plans: Restart calcitriol. Avoid nephrotoxins. Daily BMP. BP 142/72. Plans: Procardia discontinued due to interaction with chemotherapy agent. Started on amlodipine and hydralazine added. Monitor vitals, adjust medications as necessary. Plans: Resume Synthroid. Repeat TSH in 6 weeks.
[2019-10-17] MEDS: SALT AND SODA MOUTHWASH 1,000 ML PO SCH ×6 (02:31→23:58)
[2019-10-17] MEDS: DEXAMETHASONE ORAL 4 MG/ML VIAL PO SCH ×4 (05:59→23:58)
[2019-10-17] MEDS: LEVOTHYROXINE 88 MCG TAB PO SCH (05:59)
--- NOTE | 2019-10-17 07:22 | XR ---
EXAMINATION TYPE: XR chest 1V portable DATE OF EXAM: 10/17/2019 HISTORY: SOB. REFERENCE: Previous study dated 10/08/2019. FINDINGS: Tubing projects over the right upper chest. There is bibasilar infiltrates present. There are bilateral effusions. Heart size is mildly prominent . IMPRESSION: 1. CONTINUING BILATERAL EFFUSIONS, SLIGHTLY LARGER ON THE RIGHT. 2. BIBASILAR INFILTRATES 3. MILD CARDIOMEGALY.
[2019-10-17 08:49] LABS: Albumin 3.3 g/dL (3.5-5.0); Calcium 8.3 mg/dL (8.4-10.2); Potassium 4.1 mmol/L (3.5-5.1); Total Bilirubin 0.9 mg/dL (0.2-1.3); Total Protein 6.5 g/dL (6.3-8.2)
[2019-10-17 08:56] LABS: HCT 20.7 % (34.0-46.0); MCH 31.3 pg (25.0-35.0); Mean Platelet Volume 13.3; RBC 2.25 m/uL (3.80-5.40)
[2019-10-17 09:00] LABS: WBC 0.8 k/uL (3.8-10.6)
[2019-10-17 09:02] LABS: Platelet Count 30 k/uL (150-450)
[2019-10-17] MEDS: METOCLOPRAMIDE 5 MG/ML 2 ML VIAL IVP SCH ×3 (09:38→23:58)
[2019-10-17] MEDS: polyethylene glycoL 3350 17 GM POWD.PACK PO SCH (09:38)
[2019-10-17] MEDS: VENCLEXTA 100 MG PO SCH (09:38)
[2019-10-17] MEDS: ACYCLOVIR 200 MG CAP PO SCH ×2 (09:39→21:08)
[2019-10-17] MEDS: PANTOPRAZOLE 40 MG/10 ML VIAL IVP SCH ×2 (09:39→21:08)
[2019-10-17] MEDS: amLODIPine 10 MG TAB PO SCH (09:39)
[2019-10-17] MEDS: FOLIC ACID 1 MG TAB PO SCH (09:39)
[2019-10-17] MEDS: hydrALAZINE HCL 25 MG TAB PO SCH ×3 (09:39→21:08)
[2019-10-17] MEDS: SENNOSIDES-DOCUSATE SODIUM 1 EACH TAB PO SCH ×2 (09:39→21:08)
[2019-10-17] MEDS: MAG HYDROX/AL HYDROX/SIMETH 30 ML, LIDOCAINE VISCOUS 30 ML, diphenhydrAMINE ELIXIR 75 M... PO SCH ×12 (09:40→21:09)
[2019-10-17] MEDS ORDERED: FUROSEMIDE 10 MG/ML 4 ML VIAL IV STA (09:40)
--- NOTE | 2019-10-17 11:27 | P.PN ---
Progress Note - Text Progress Note Date: 10/17/19 The patient is resting comfortably bed. Her tube feeds are at 25 mL per hour. On exam vital signs are stable. Abdomen soft. Patient's had no further nausea. Patient will have her tube feed increased to goal rate of 35 mL/h. Appears that her ileus is resolved.
--- NOTE | 2019-10-17 12:01 | P.PN ---
Subjective Progress Note Date: 10/17/19 Principal diagnosis: AML Nausea/vomiting Pancytopenia Mucositis LUE DVT Acute on chronic renal failure Tube feeding slowly being increased, at 25cc/hr now and pt tolerating now without nausea or vomiting. Continues to be fatigued. Improved mucositis. Objective - Vital Signs Vital signs: Vital Signs Temp 98.3 F 10/17/19 05:58 Pulse 102 H 10/17/19 05:58 Resp 15 10/17/19 05:58 BP 145/65 10/17/19 05:58 Pulse Ox 94 L 10/17/19 05:58 Intake & Output 10/16/19 10/17/19 10/17/19 18:59 06:59 18:59 Intake Total 135 960 60 Output Total 349 500 Balance -214 460 60 Weight 50.1 kg 50.6 kg Intake: Intake, IV Titration 100 Amount Potassium Chloride 20 meq 100 In Water For Injection 1 100ml.bag @ 50 mls/hr IVPB Q2H [facility] Rx#: [id number] Oral 720 Tube Feeding 135 140 60 Output: Urine 300 500 Post Void Residual 49 Other: Voiding Method Toilet Bedside Commode Bedside Commode Bedside Commode - Exam General: In no acute distress. HEENT: She does have conjunctival pallor. No scleral icterus. Mucosa moist. Neck: Neck supple. Lungs: No respiratory distress, on 3L NC. Heart: Regular rate. Abdomen: Soft. MSK: 4/4 strength in all 4 extremities. Neuro: Alert and oriented 3. Skin: No jaundice or rash. Psych: Appropriate affect. - Labs CBC & Chem 7: 10/17/19 07:36 10/17/19 07:36 Labs: Abnormal Lab Results - Last 24 Hours (Table) 10/17/19 10/17/19 Range/Units 07:36 07:36 WBC 0.8 L* (3.8-10.6) k/uL RBC 2.25 L (3.80-5.40) m/uL Hgb 7.0 L (11.4-16.0) gm/dL Hct 20.7 L (34.0-46.0) % Plt Count 30 L (150-450) k/uL Sodium 134 L (137-145) mmol/L BUN 57 H (7-17) mg/dL Creatinine 2.83 H (0.52-1.04) mg/dL Glucose 112 H (74-99) mg/dL Calcium 8.3 L (8.4-10.2) mg/dL Albumin 3.3 L (3.5-5.0) g/dL Assessment and Plan Assessment: 1. AML 2. Pancytopenia due to leukemia and chemotherapy 3. Nausea/vomiting, due to chemotherapy 4. Mucositis due to chemotherapy 5. Dyspnea due to fluid overload 6. LUE DVT due to PICC line 7. Severe Malnutrition 8. Acute on chronic renal failure Plan: Ms. Jules is a very pleasant 74 yo female with newly found AML here for induction chemotherapy with venetoclax and dacogen, admitted on 09/27/19. She is having several toxicities from chemotherapy, including the following N/V which has improved with zyprexa, mucositis overall improving, and pancytopenia due to chemotherapy and leukemia. She is also not eating. Dobhoff placed and she was started on tube feeding. Would advance tube feed very slowly to avoid further nausea and vomiting. Hold off on adjusting antiemetics for now and will reassess in 1-2 days if tube feeding otherwise is tolerated. Plan to monitor CBC and supportive transfusion for Hgb <7 or plt <10, leukoreduced and irradiated blood products (crossmatched plt due to refractory thrombocytopenia; will give 1 unit pRBC today). Continue tube feeding and watch for electrolyte derangements and supplement as needed. Diuresis for her dyspnea, nephrology and cardiology following. Await repeat BMB results from 10/14/19. Hold anticoagulation for LUE PICC associated DVT due to thrombocytopenia; PICC removed and placed on RUE. Discussed with pt and she is agreeable to the plan. All questions answered.
--- NOTE | 2019-10-17 13:39 | P.PN ---
Subjective Progress Note Date: 10/17/19 Follow-up for acute kidney injury. Denies any nausea vomiting diarrhea. Objective - Vital Signs Vital signs: Vital Signs Temp 98.0 F 10/17/19 12:43 Pulse 97 10/17/19 12:43 Resp 14 10/17/19 12:43 BP 131/71 10/17/19 12:43 Pulse Ox 96 10/17/19 12:43 Intake & Output 10/16/19 10/17/19 10/17/19 18:59 06:59 18:59 Intake Total 135 960 80 Output Total 349 500 Balance -214 460 80 Weight 50.1 kg 50.6 kg Intake: Intake, IV Titration 100 Amount Potassium Chloride 20 meq 100 In Water For Injection 1 100ml.bag @ 50 mls/hr IVPB Q2H [facility] Rx#: [id number] Oral 720 Tube Feeding 135 140 80 Output: Urine 300 500 Post Void Residual 49 Other: Voiding Method Toilet Bedside Commode Bedside Commode Bedside Commode - Exam No acute distress lying comfortable S1-S2 heard Lungs clear Abdomen distended No edema - Labs CBC & Chem 7: 10/17/19 07:36 10/17/19 07:36 Labs: Abnormal Lab Results - Last 24 Hours (Table) 10/17/19 10/17/19 Range/Units 07:36 07:36 WBC 0.8 L* (3.8-10.6) k/uL RBC 2.25 L (3.80-5.40) m/uL Hgb 7.0 L (11.4-16.0) gm/dL Hct 20.7 L (34.0-46.0) % Plt Count 30 L (150-450) k/uL Sodium 134 L (137-145) mmol/L BUN 57 H (7-17) mg/dL Creatinine 2.83 H (0.52-1.04) mg/dL Glucose 112 H (74-99) mg/dL Calcium 8.3 L (8.4-10.2) mg/dL Albumin 3.3 L (3.5-5.0) g/dL Assessment and Plan Assessment: #1 acute kidney injury suspect prerenal process/progressive chronic kidney disease. Renal function stable. #2 chronic kidney disease stage IV secondary to nephrosclerosis baseline creatinine 2.0-2.3 MG per DL. #3 AML status post chemotherapy #4 abdominal distention rule out urinary retention #5 hypertension with chronic kidney disease #6 pancytopenia Plan: #1 bladder scan no urinary retention #2 renal function stable. #3 avoid nephrotoxic agents and hypotensive episodes. #4 continue to hold diuretics for now.
--- NOTE | 2019-10-17 17:12 | P.PN ---
Subjective Progress Note Date: 10/17/19 Principal diagnosis: Thrombocytopenia Patient was seen and examined. No acute events overnight. Patient reports fatigue and tiredness. She denies any chest pain or palpitations. Patient continues to report poor appetite only able to eat a few spoonfuls of applesauce today. Drinking jose alberto jamari. She denies any nausea today. Patient reports small bowel movement today. Passing plenty of gas. Objective - Vital Signs Vital signs: Vital Signs Temp 99.6 F 10/17/19 16:25 Pulse 100 10/17/19 16:25 Resp 22 10/17/19 16:25 BP 125/56 10/17/19 16:25 Pulse Ox 94 L 10/17/19 16:25 Intake & Output 10/16/19 10/17/19 10/17/19 18:59 06:59 18:59 Intake Total 135 960 100 Output Total 349 500 Balance -214 460 100 Weight 50.1 kg 50.6 kg 50.6 kg Intake: Intake, IV Titration 100 Amount Potassium Chloride 20 meq 100 In Water For Injection 1 100ml.bag @ 50 mls/hr IVPB Q2H [facility] Rx#: [id number] Oral 720 Tube Feeding 135 140 100 Blood Product 0 Rc Irr Cpda1 Unit 0 [id number] Output: Urine 300 500 Post Void Residual 49 Other: Voiding Method Toilet Bedside Commode Bedside Commode Bedside Commode - Exam General: [non toxic, appears pale], [no distress], [appears at stated age] Derm: [warm], [dry] Head: [atraumatic], [normocephalic], [symmetric], Dobbhoff in place Eyes: [EOMI], [no lid lag], [anicteric sclera] Mouth: [no lip lesion], [mucus membranes moist] Cardiovascular: [S1S2 reg], [systolic murmur with tachycardia], [positive DP pulse bilateral], Lungs: [Decreased breath sounds bilateral], [no rhonchi, no rales] , [no accessory muscle use] Abdominal: [soft], [ nontender to palpation with decreased bowel sounds], [no guarding], [no appreciable organomegaly] Ext: [no gross muscle atrophy], [no edema], [no contractures] Neuro: [no focal neuro deficits] Psych: [Alert and oriented 3, flat affect] - Labs CBC & Chem 7: 10/17/19 07:36 10/17/19 07:36 Labs: Abnormal Lab Results - Last 24 Hours (Table) 10/17/19 10/17/19 10/17/19 Range/Units 07:36 07:36 12:16 WBC 0.8 L* (3.8-10.6) k/uL RBC 2.25 L (3.80-5.40) m/uL Hgb 7.0 L (11.4-16.0) gm/dL Hct 20.7 L (34.0-46.0) % Plt Count 30 L (150-450) k/uL Sodium 134 L (137-145) mmol/L BUN 57 H (7-17) mg/dL Creatinine 2.83 H (0.52-1.04) mg/dL Glucose 112 H (74-99) mg/dL Calcium 8.3 L (8.4-10.2) mg/dL Albumin 3.3 L (3.5-5.0) g/dL Crossmatch See Detail Assessment and Plan Assessment: Protein calorie malnutrition with chemotherapy-induced nausea and vomiting Bilateral pleural effusion 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 Dietitian has been consulted. Family at bedside aware. Continue Marinol. She had 3 days of olanzapine. Started on Reglan scheduled. Zofran as needed for nausea or vomiting. As seen on chest x-ray. Lasix 40 mg IV 1. Supplemental O2 to maintain O2 saturation greater than 92%. Her hemoglobin is 7. Platelet count 30. Likely related to AML. Plans: Has received 6 units PRBC so far. Total of 10 units platelets. Plans for one PRBC today. Daily CBC. Follow hematology recommendations. Transfuse PRBC if hemoglobin is less than 7. Transfuse if platelet count less than 10. Likely from chemotherapy. Continue acyclovir. Continue Decadron oral and stomatitis cocktail. Received PICC line in the left upper extremity. Duplex has been reordered and there is a thrombus around the PICC line which was taken out. Oncology does not recommend anticoagulation at this time. BUN 57, creatinine 2.83. Likely related to dehydration and poor oral intake. Plans: Restart calcitriol. Avoid nephrotoxins. Daily BMP. BP 144/66. Plans: Procardia discontinued due to interaction with chemotherapy agent. Started on amlodipine and hydralazine added. Monitor vitals, adjust medications as necessary. Plans: Resume Synthroid. Repeat TSH in 6 weeks.
[2019-10-18] MEDS: SALT AND SODA MOUTHWASH 1,000 ML PO SCH ×6 (02:42→23:44)
[2019-10-18] MEDS: DEXAMETHASONE ORAL 4 MG/ML VIAL PO SCH ×4 (05:55→23:46)
[2019-10-18] MEDS: LEVOTHYROXINE 88 MCG TAB PO SCH (05:55)
[2019-10-18] MEDS: ACYCLOVIR 200 MG CAP PO SCH (08:28)
[2019-10-18] MEDS: hydrALAZINE HCL 25 MG TAB PO SCH ×3 (08:28→21:04)
[2019-10-18] MEDS: METOCLOPRAMIDE 5 MG/ML 2 ML VIAL IVP SCH ×3 (08:29→23:46)
[2019-10-18] MEDS: SENNOSIDES-DOCUSATE SODIUM 1 EACH TAB PO SCH ×2 (08:29→21:04)
[2019-10-18] MEDS: amLODIPine 10 MG TAB PO SCH (08:29)
[2019-10-18] MEDS: FOLIC ACID 1 MG TAB PO SCH (08:29)
[2019-10-18] MEDS: VENCLEXTA 100 MG PO SCH (08:30)
[2019-10-18] MEDS: PANTOPRAZOLE 40 MG/10 ML VIAL IVP SCH ×2 (08:31→21:04)
[2019-10-18] MEDS: polyethylene glycoL 3350 17 GM POWD.PACK PO SCH ×2 (08:31→08:34)
[2019-10-18] MEDS: MAG HYDROX/AL HYDROX/SIMETH 30 ML, LIDOCAINE VISCOUS 30 ML, diphenhydrAMINE ELIXIR 75 M... PO SCH ×12 (08:33→21:04)
[2019-10-18 09:40] LABS: Calcium 8.1 mg/dL (8.4-10.2); Potassium 3.7 mmol/L (3.5-5.1)
[2019-10-18 09:46] LABS: HGB 8.3 gm/dL (11.4-16.0); MCH 30.7 pg (25.0-35.0); MCHC 34.6 g/dL (31.0-37.0); Mean Platelet Volume 14.2; RDW 15.6 % (11.5-15.5)
[2019-10-18 09:59] LABS: WBC 1.1 k/uL (3.8-10.6)
[2019-10-18 10:00] LABS: Platelet Count 42 k/uL (150-450)
--- NOTE | 2019-10-18 10:08 | CDI ---
Documentation Clarification Form Date: 10/18/2019 10:02:00 AM From: Leelee Del Rio CCS, CCDS Admit Date: 09/27/2019 09:53:00 AM Patient Name: Roxane Jules Visit Number: [id number] Discharge Date: ATTENTION: The Clinical Documentation Specialists (CDI) and [facility] Coding Staff appreciate your assistance in clarifying documentation. Please respond to the clarification below the line at the bottom and electronically sign. The CDI & [facility] Coding staff will review the response and follow-up if needed. Please note: Queries are made part of the Legal Health Record. If you have any questions, please contact the author of this message via ITS. Dr. Milad Fernandes: Thank you for responding to this malnutrition query. There is now conflicting documentation in the record regarding the severity of malnutrition. Per the 10/12 Medical Management Progress Note: "Protein Calorie Malnutrition" is documented without further specificity. Per the 10/14 & 10/16 Oncology Progress Notes: the patient has "severe malnutrition". History/Risk Factors: ITP, Hypertension, CKD stage IV, Anemia. Clinical Indicators: 74 yo female patient, admitted on 09/26 for chemotherapy to treat AML Labs 09/26 total Protein 8.2, Albumin 4.4-3.3*; 09/27: Total Protein 6.0*, Albumin 2.8*; 09/28 total Protein 5.7*, Albumin 2.7*; 10/12 Totap Protein 6.7, Albumin 3.4*. BMI as of 10/14: 24.2 Current BMI: 25.0 Nutritional Assessment on Admission: Diet tolerated: [id number]. On 10/02: Intake: poor (25-50%), has lip mouth sores: difficult to eat, Fair appetite; Given Ensure Enlive BID. Wt 45.767 kg. Ht 4 ft 8 in. BMI 22.6. Inadequate energy balance. 10/12: Dietitian consult. Diet: 0-25%, Weight: 59 kg. Refused some food due to nausea. Treatment: Oral supplements, soft foods, high protein snacks. Marinol added for nausea. Chemotherapy continued. Transfusions: PRBC, Platelets, Irradiated Platelets. IV Promethazine, IV Cefepime, IV Vancomycin, IV Calcium Gluconate, IV fluid boluses, IV Zofran. Oncology requested Dofhoff to increase protein per recommendation by dietitian. Dobhoff feeding tube was placed on 09/28 by general surgery. In your professional opinion, can you please clarify if these findings signify one of the following conditions? Mild Protein-Calorie Malnutrition Moderate Protein-Calorie Malnutrition Severe Protein-Calorie Malnutrition Other condition, please specify Unable to determine Present on Admission: Yes or No (Last Revision: September 2018) severe malnutrition developed during chemotherapy while inpatient MTDD
--- NOTE | 2019-10-18 10:25 | P.PN ---
Progress Note - Text Progress Note Date: 10/18/19 Patient's resting comfortably bed. Her tube feeds are at goal. She appears to be tolerating them. On exam vessels are stable. Abdomen soft. Malnutrition. Patient's a Dobbhoff tube feedings. We will follow with you
[2019-10-18 10:52] LABS: Lymphocytes # (M) 0.35 k/uL (1.0-4.8); Monocytes # (M) 0.13 k/uL (0-1.0); Neutrophils # (M) 0.62 k/uL (1.3-7.7); Neutrophils % (M) 56 %; Nucleated Red Blood Cells 0 /100 WBC (0-0); Total Cells Counted 100
[2019-10-18 10:54] LABS: Polychromasia Present
[2019-10-18 11:04] LABS: Uric Acid 5.7 mg/dL (3.7-7.4)
--- NOTE | 2019-10-18 12:19 | PN ---
PROGRESS NOTE Patient is seen for followup for chronic kidney disease and acute kidney injury. She has not been eating much and currently has a Dobbhoff tube with feeding. The feeding was increased to goal last night. The patient is complaining of weakness. She denies any significant chest pains or shortness of breath. PHYSICAL EXAMINATION: On examination today, blood pressure 147/68, heart rate 93 per minute. She is afebrile. Examination of the heart S1, S2. Examination of lungs decreased breath sounds at bases. Abdomen is soft, nontender. Examination of lower extremities shows no significant edema. SIGNS CLEANER exam grossly intact. LAB: Show hemoglobin 8.3, white cell count 1.1, platelet count 42,000. Sodium 135, potassium 3.7, BUN 57 serum creatinine 2.94. ASSESSMENT: 1. Acute kidney injury, possibly prerenal versus acute tubular necrosis currently maintained on tube feedings. The goal was increased last night. Serum creatinine has increased slightly to 2.9 now from baseline of about 2.5 mg/dL. Urine output over 24 hours at about 849 mL. The patient did receive IV Lasix recently for mild volume overload. Therefore, I will hold off on IV fluid administration since the tube feedings was recently increased. We will repeat labs in a.m. and avoid hypotension and any other nephrotoxic medications. 2. Acute myeloid leukemia status post chemotherapy. 3. Chronic kidney disease stage 4 secondary to nephrosclerosis. Baseline creatinine 2- 2.5 mg/dL. 4. Pancytopenia, being followed by Hematology. PLAN: Continue to feedings with free water down the feeding tube. Repeat labs in a.m. I will hold off on IV fluids for now, as chest x-ray from yesterday shows bilateral pleural effusions and mild cardiomegaly. MMODL / IJN: [id number] /
--- NOTE | 2019-10-18 14:59 | P.PN ---
Subjective Progress Note Date: 10/18/19 Principal diagnosis: Thrombocytopenia Patient was seen and examined. No acute events overnight. Patient reports fatigue and tiredness. She denies any chest pain or palpitations. Patient was able to eat some chicken Knodel soup today. Drinking jose alberto jamari. She denies any nausea or vomiting today. She reports some exertional dyspnea but able to ambulate the hallways without much difficulties. Objective - Vital Signs Vital signs: Vital Signs Temp 97.6 F 10/18/19 05:00 Pulse 93 10/18/19 05:00 Resp 18 10/18/19 05:00 BP 147/68 10/18/19 05:00 Pulse Ox 95 10/18/19 05:00 Intake & Output 10/17/19 10/18/19 10/18/19 18:59 06:59 18:59 Intake Total 100 950 280 Output Total 600 Balance 100 350 280 Weight 50.6 kg 50.6 kg Intake: Oral 300 Tube Feeding 100 400 280 Blood Product 0 250 Rc Irr Cpda1 Unit 0 250 [id number] Output: Urine 600 Other: Voiding Method Bedside Commode Bedside Commode - Exam General: [non toxic, appears pale], [no distress], [appears at stated age] Derm: [warm], [dry] Head: [atraumatic], [normocephalic], [symmetric], Dobbhoff in place Eyes: [EOMI], [no lid lag], [anicteric sclera] Mouth: [no lip lesion], [mucus membranes moist] Cardiovascular: [S1S2 reg], [systolic murmur with tachycardia], [positive DP pulse bilateral], Lungs: [Decreased breath sounds bilateral], [no rhonchi, no rales] , [no accessory muscle use] Abdominal: [soft], [ nontender to palpation with decreased bowel sounds], [no guarding], [no appreciable organomegaly] Ext: [no gross muscle atrophy], [no edema], [no contractures] Neuro: [no focal neuro deficits] Psych: [Alert and oriented 3, flat affect] - Labs CBC & Chem 7: 10/18/19 09:06 10/18/19 09:06 Labs: Abnormal Lab Results - Last 24 Hours (Table) 10/17/19 10/18/19 10/18/19 Range/Units 12:16 09:06 09:06 WBC 1.1 L* (3.8-10.6) k/uL RBC 2.70 L (3.80-5.40) m/uL Hgb 8.3 L (11.4-16.0) gm/dL Hct 24.0 L (34.0-46.0) % RDW 15.6 H (11.5-15.5) % Plt Count 42 L (150-450) k/uL Neutrophils # (Manual) 0.62 L (1.3-7.7) k/uL Lymphocytes # (Manual) 0.35 L (1.0-4.8) k/uL Sodium 135 L (137-145) mmol/L BUN 57 H (7-17) mg/dL Creatinine 2.94 H (0.52-1.04) mg/dL Glucose 113 H (74-99) mg/dL Calcium 8.1 L (8.4-10.2) mg/dL Lactate Dehydrogenase (313-618) U/L Crossmatch See Detail 10/18/19 Range/Units 09:06 WBC (3.8-10.6) k/uL RBC (3.80-5.40) m/uL Hgb (11.4-16.0) gm/dL Hct (34.0-46.0) % RDW (11.5-15.5) % Plt Count (150-450) k/uL Neutrophils # (Manual) (1.3-7.7) k/uL Lymphocytes # (Manual) (1.0-4.8) k/uL Sodium (137-145) mmol/L BUN (7-17) mg/dL Creatinine (0.52-1.04) mg/dL Glucose (74-99) mg/dL Calcium (8.4-10.2) mg/dL Lactate Dehydrogenase 1043 H (313-618) U/L Crossmatch Assessment and Plan Assessment: Protein calorie malnutrition with chemotherapy-induced nausea and vomiting Bilateral pleural effusion 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 Dietitian has been consulted. Family at bedside aware. Continue Marinol. She had 3 days of olanzapine. Started on Reglan scheduled. Zofran as needed for nausea or vomiting. Patient will likely need to be discharged with tube feeds. As seen on chest x-ray. Lasix 40 mg IV 1 yesterday. Supplemental O2 to maintain O2 saturation greater than 92%. Her hemoglobin is 8.3. Platelet count 42. Likely related to AML. Plans: Has received 7 units PRBC so far. Total of 10 units platelets. Daily CBC. Follow hematology recommendations. Transfuse PRBC if hemoglobin is less than 7. Transfuse if platelet count less than 10. Likely from chemotherapy. Continue acyclovir. Continue Decadron oral and stomatitis cocktail. Received PICC line in the left upper extremity. Duplex has been reordered and there is a thrombus around the PICC line which was taken out. Oncology does not recommend anticoagulation at this time. BUN 57, creatinine 2.94. Likely related to dehydration and poor oral intake. Plans: Restart calcitriol. Avoid nephrotoxins. Daily BMP. BP 147/68. Plans: Procardia discontinued due to interaction with chemotherapy agent. Started on amlodipine and hydralazine added. Monitor vitals, adjust medications as necessary. Plans: Resume Synthroid. Repeat TSH in 6 weeks. [Patient's nausea and vomiting has improved greatly since admission. Her platelet count has improved over the last few days. Her hemoglobin is stable. Would consider discharge planning in the next 1-2 days for patient to recover at home prior to her next round of chemotherapy. She will need home O2 evaluation prior to discharge. Oncology on board.]
[2019-10-18] MEDS ORDERED: bisacodyL 10 MG SUPP RECTAL STA (15:46)
--- NOTE | 2019-10-18 22:19 | P.PN ---
Subjective Progress Note Date: 10/18/19 Principal diagnosis: Acute Leukemia blood counts stable and platelets improving Objective - Vital Signs Vital signs: Vital Signs Temp 97.6 F 10/18/19 05:00 Pulse 93 10/18/19 05:00 Resp 18 10/18/19 05:00 BP 147/68 10/18/19 05:00 Pulse Ox 95 10/18/19 05:00 Intake & Output 10/17/19 10/18/19 10/18/19 18:59 06:59 18:59 Intake Total 100 950 280 Output Total 600 Balance 100 350 280 Weight 50.6 kg 50.6 kg Intake: Oral 300 Tube Feeding 100 400 280 Blood Product 0 250 Rc Irr Cpda1 Unit 0 250 [id number] Output: Urine 600 Other: Voiding Method Bedside Commode Bedside Commode - Exam - Constitutional General appearance: Present: malnourished body habitus, cooperative, mild distress, thin and chronically ill appearing - EENT Eyes: Present: anicteric sclerae, EOMI ENT: Present: hearing grossly normal, pharyngeal erythema - Respiratory Respiratory: bilateral: CTA (weak inspiratory effort) - Cardiovascular Rhythm: regular Heart sounds: normal: S1, S2 Abnormal Heart Sounds: Absent: systolic murmur, diastolic murmur, rub, S3 Gallop, S4 Gallop, click, other - Peripheral edema leg Peripheral Edema: bilateral: None - Gastrointestinal General gastrointestinal: Present: normal bowel sounds, soft - Neurologic Neurologic: Present: CNII-XII intact - Musculoskeletal Musculoskeletal: Present: generalized weakness - Psychiatric Psychiatric Comment(s): flat affect Psychiatric: Present: A&O x's 3, intact judgment & insight - Labs CBC & Chem 7: 10/18/19 09:06 10/18/19 09:06 Labs: Abnormal Lab Results - Last 24 Hours (Table) 10/17/19 10/18/19 10/18/19 Range/Units 12:16 09:06 09:06 WBC 1.1 L* (3.8-10.6) k/uL RBC 2.70 L (3.80-5.40) m/uL Hgb 8.3 L (11.4-16.0) gm/dL Hct 24.0 L (34.0-46.0) % RDW 15.6 H (11.5-15.5) % Plt Count 42 L (150-450) k/uL Neutrophils # (Manual) 0.62 L (1.3-7.7) k/uL Lymphocytes # (Manual) 0.35 L (1.0-4.8) k/uL Sodium 135 L (137-145) mmol/L BUN 57 H (7-17) mg/dL Creatinine 2.94 H (0.52-1.04) mg/dL Glucose 113 H (74-99) mg/dL Calcium 8.1 L (8.4-10.2) mg/dL Lactate Dehydrogenase (313-618) U/L Crossmatch See Detail 10/18/19 Range/Units 09:06 WBC (3.8-10.6) k/uL RBC (3.80-5.40) m/uL Hgb (11.4-16.0) gm/dL Hct (34.0-46.0) % RDW (11.5-15.5) % Plt Count (150-450) k/uL Neutrophils # (Manual) (1.3-7.7) k/uL Lymphocytes # (Manual) (1.0-4.8) k/uL Sodium (137-145) mmol/L BUN (7-17) mg/dL Creatinine (0.52-1.04) mg/dL Glucose (74-99) mg/dL Calcium (8.4-10.2) mg/dL Lactate Dehydrogenase 1043 H (313-618) U/L Crossmatch Assessment and Plan Plan: Assessment and Plan Nausea and vomiting: Improving - COntinue antieemetics and zyprexa Mucocytits: Improving - Stable - Continue supportive care Protein calorie Malnutrition: - Continue TF via dobhoff - Dieticien following Dyspnea - improving This is felt to be due to fluid overload. - Cardiology following Renal Insufficiency - Worsening - Nephrology FOllowing 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 - Tumor lysis resolved - Status POst repeat Bone Marrow biopsy Friday - Await results Left upper extremity swelling - Picc associated DVT, status post removal of the line and replacement of the other side. - platelets prior - Unable to anticoagulate due to thrombocytopenia - Start AC when platlets are greater than 50K Pancytopenia - Secondary to AML and Chemo - improved Platelets to transfuse today for 10K - Daily CBC - Irradiated products (crossmatched preferred) Keep hemoglobin greater than 7 and platelets greater than 10. Platelets appear refractory, crossmatched to be used. Plan: - COntinue daily cbc - COntinue TF Physician Attest: I have completed the full history and physical and agree with above dictation, dictated as a scribe.
[2019-10-19] MEDS: SALT AND SODA MOUTHWASH 1,000 ML PO SCH ×5 (02:26→17:59)
[2019-10-19] MEDS: DEXAMETHASONE ORAL 4 MG/ML VIAL PO SCH ×3 (06:06→17:58)
[2019-10-19] MEDS: LEVOTHYROXINE 88 MCG TAB PO SCH (06:06)
[2019-10-19 06:50] LABS: HCT 23.5 % (34.0-46.0); HGB 8.2 gm/dL (11.4-16.0); MCH 31.1 pg (25.0-35.0); MCHC 34.9 g/dL (31.0-37.0); MCV 89.2 fL (80.0-100.0); Mean Platelet Volume 13.3; RBC 2.64 m/uL (3.80-5.40); RDW 15.7 % (11.5-15.5)
[2019-10-19 06:58] LABS: Albumin 3.4 g/dL (3.5-5.0); Calcium 8.4 mg/dL (8.4-10.2); Potassium 4.1 mmol/L (3.5-5.1); Total Protein 6.6 g/dL (6.3-8.2)
[2019-10-19 07:02] LABS: Platelet Count 65 k/uL (150-450); WBC 1.1 k/uL (3.8-10.6)
[2019-10-19] MEDS: METOCLOPRAMIDE 5 MG/ML 2 ML VIAL IVP SCH ×2 (09:30→16:26)
[2019-10-19] MEDS: amLODIPine 10 MG TAB PO SCH (09:31)
[2019-10-19] MEDS: hydrALAZINE HCL 25 MG TAB PO SCH ×3 (09:31→21:36)
[2019-10-19] MEDS: VENCLEXTA 100 MG PO SCH (09:31)
[2019-10-19] MEDS: FOLIC ACID 1 MG TAB PO SCH (09:31)
[2019-10-19] MEDS: PANTOPRAZOLE 40 MG/10 ML VIAL IVP SCH ×2 (09:32→21:36)
[2019-10-19] MEDS: polyethylene glycoL 3350 17 GM POWD.PACK PO SCH (09:32)
[2019-10-19] MEDS: SENNOSIDES-DOCUSATE SODIUM 1 EACH TAB PO SCH ×2 (09:32→21:36)
[2019-10-19] MEDS: MAG HYDROX/AL HYDROX/SIMETH 30 ML, LIDOCAINE VISCOUS 30 ML, diphenhydrAMINE ELIXIR 75 M... PO SCH ×12 (09:33→21:37)
[2019-10-19 11:16] LABS: Band Neutrophils % 1 %; Neutrophils % (M) 44 %
[2019-10-19 11:17] LABS: Metamyelocytes # (M) 0.01 k/uL (0); Metamyelocytes % 1 %; Nucleated Red Blood Cells 0 /100 WBC (0-0); Total Cells Counted 100
[2019-10-19 11:38] LABS: Anisocytosis (M) Present; Poikilocytosis (M) Present
--- NOTE | 2019-10-19 12:16 | P.PN ---
Progress Note - Text Progress Note Date: 10/19/19 Patient is resting comfortably in bed. She is tolerant tube feeds at goal. On exam vital signs are stable. Abdomen soft. Malnutrition. Patient continue tube feeds via Dobbhoff catheter.
--- NOTE | 2019-10-19 12:59 | P.PN ---
Subjective Progress Note Date: 10/19/19 Principal diagnosis: Acute Leukemia She is tolerating TF well. Her CBC is actually appearing to recover. She is status post BM biopsy late last week, those results are still pending. Objective - Vital Signs Vital signs: Vital Signs Temp 98.3 F 10/19/19 11:39 Pulse 95 10/19/19 11:39 Resp 17 10/19/19 11:39 BP 131/72 10/19/19 11:39 Pulse Ox 93 L 10/19/19 11:39 Intake & Output 10/18/19 10/19/19 10/19/19 18:59 06:59 18:59 Intake Total 420 870 280 Output Total 600 300 Balance -180 570 280 Weight 50.1 kg 50.1 kg Intake: Oral 450 Tube Feeding 420 420 280 Output: Urine 600 300 Other: Voiding Method Bedside Commode Bedside Commode - Exam - Constitutional General appearance: Present: malnourished body habitus, cooperative, mild distress, thin and chronically ill appearing - EENT Eyes: Present: anicteric sclerae, EOMI ENT: Present: hearing grossly normal, pharyngeal erythema - Respiratory Respiratory: bilateral: CTA (weak inspiratory effort) - Cardiovascular Rhythm: regular Heart sounds: normal: S1, S2 Abnormal Heart Sounds: Absent: systolic murmur, diastolic murmur, rub, S3 Gallop, S4 Gallop, click, other - Peripheral edema leg Peripheral Edema: bilateral: None - Gastrointestinal General gastrointestinal: Present: normal bowel sounds, soft - Neurologic Neurologic: Present: CNII-XII intact - Musculoskeletal Musculoskeletal: Present: generalized weakness - Psychiatric Psychiatric Comment(s): flat affect Psychiatric: Present: A&O x's 3, intact judgment & insight - Labs CBC & Chem 7: 10/19/19 06:11 10/19/19 06:11 Labs: Abnormal Lab Results - Last 24 Hours (Table) 10/19/19 10/19/19 Range/Units 06:11 06:11 WBC 1.1 L* (3.8-10.6) k/uL RBC 2.64 L (3.80-5.40) m/uL Hgb 8.2 L (11.4-16.0) gm/dL Hct 23.5 L (34.0-46.0) % RDW 15.7 H (11.5-15.5) % Plt Count 65 L D (150-450) k/uL Neutrophils # (Manual) 0.40 L* (1.3-7.7) k/uL Lymphocytes # (Manual) 0.40 L (1.0-4.8) k/uL Metamyelocytes # (Man) 0.01 H (0) k/uL BUN 57 H (7-17) mg/dL Creatinine 2.90 H (0.52-1.04) mg/dL Glucose 110 H (74-99) mg/dL Albumin 3.4 L (3.5-5.0) g/dL Assessment and Plan Plan: Assessment and Plan Nausea and vomiting: Improving - COntinue antieemetics and zyprexa Mucocytits: Improving - Stable - Continue supportive care Protein calorie Malnutrition: - Continue TF via dobhoff - Dieticien following Dyspnea - improving This is felt to be due to fluid overload. - Cardiology following Renal Insufficiency - Worsening/Stable - Nephrology FOllowing 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 - Tumor lysis resolved - Status POst repeat Bone Marrow biopsy Friday - Await results Left upper extremity swelling - Picc associated DVT, status post removal of the line and replacement of the other side. - platelets prior - Unable to anticoagulate due to thrombocytopenia - Start AC when platlets are greater than 50K Pancytopenia - Secondary to AML and Chemo - improved Platelets to transfuse today for 10K - Daily CBC - Irradiated products (crossmatched preferred) Keep hemoglobin greater than 7 and platelets greater than 10. Platelets appeared refractory, crossmatched to be used. This has now improved and no transfusion needed at this time Plan: - COntinue daily cbc - COntinue TF - COntinue PT/OT
--- NOTE | 2019-10-19 14:34 | PN ---
PROGRESS NOTE Patient is seen for followup for chronic kidney disease and acute kidney injury. Her serum creatinine is staying at about 2.9 mg/dL. Patient's tube feedings were just increased. She continues to have fairly good urine output. The patient did receive Lasix over the weekend for mild hypervolemia. At this time, I will hold off on any diuretics or IV fluids and continue to maintain tube feedings at goal and continue with the free water as well. Avoid nephrotoxic medications. PHYSICAL EXAMINATION: On examination, blood pressure is 131/72, heart rate 95 per minute, patient is afebrile. Examination of the heart, S1, S2. Examination of the lungs, bilateral breath sounds are heard. Decreased breath sounds at bases. Abdomen is soft, nontender. Examination of lower extremities shows no significant edema. [employer] exam grossly intact. LAB: Show hemoglobin 8.2, white cell count 1.1, platelet count 65,000. Sodium 137, potassium 4.1, chloride 101, BUN 57, creatinine 2.9. ASSESSMENT: 1. Chronic kidney disease NKF stage IV. Baseline creatinine about 2.5 mg/dL. 2. Acute kidney injury, mostly prerenal. I will hold off on the IV fluids or IV Lasix. Continue to maintain tube feedings at goal. Renal function is stable since yesterday. Patient's urine output is adequate. Continue to avoid nephrotoxic medications. 3. Acute myeloid leukemia, status post chemotherapy. 4. Pancytopenia, secondary to chemotherapy, being followed by Hematology. PLAN: Continue to maintain patient on tube feedings. Hold off on IV fluids or Lasix for now. MMODL / IJN: [id number] /
[2019-10-20] MEDS: SALT AND SODA MOUTHWASH 1,000 ML PO SCH ×6 (00:07→17:41)
[2019-10-20] MEDS: METOCLOPRAMIDE 5 MG/ML 2 ML VIAL IVP SCH ×2 (00:07→08:31)
[2019-10-20] MEDS: DEXAMETHASONE ORAL 4 MG/ML VIAL PO SCH ×4 (00:08→17:39)
[2019-10-20] MEDS: LEVOTHYROXINE 88 MCG TAB PO SCH (06:09)
[2019-10-20] MEDS: polyethylene glycoL 3350 17 GM POWD.PACK PO SCH (08:30)
[2019-10-20] MEDS: amLODIPine 10 MG TAB PO SCH (08:30)
[2019-10-20] MEDS: FOLIC ACID 1 MG TAB PO SCH (08:30)
[2019-10-20] MEDS: hydrALAZINE HCL 25 MG TAB PO SCH ×3 (08:30→20:40)
[2019-10-20] MEDS: SENNOSIDES-DOCUSATE SODIUM 1 EACH TAB PO SCH ×2 (08:31→20:40)
[2019-10-20] MEDS: PANTOPRAZOLE 40 MG/10 ML VIAL IVP SCH ×2 (08:31→20:40)
[2019-10-20] MEDS: MAG HYDROX/AL HYDROX/SIMETH 30 ML, LIDOCAINE VISCOUS 30 ML, diphenhydrAMINE ELIXIR 75 M... PO SCH ×8 (08:33→16:02)
[2019-10-20] MEDS: VENCLEXTA 100 MG PO SCH (08:33)
--- NOTE | 2019-10-20 11:54 | P.PN ---
Subjective Progress Note Date: 10/20/19 Principal diagnosis: Acute Leukemia Awaiting on CBC from today and path still pending Objective - Vital Signs Vital signs: Vital Signs Temp 98.4 F 10/20/19 05:00 Pulse 95 10/20/19 05:00 Resp 16 10/20/19 05:00 BP 146/71 10/20/19 05:00 Pulse Ox 93 L 10/20/19 05:00 Intake & Output 10/19/19 10/20/19 10/20/19 18:59 06:59 18:59 Intake Total 900 450 Output Total 850 450 Balance 50 0 Weight 50.1 kg 50.3 kg Intake: Oral 480 Tube Feeding 420 450 Output: Urine 850 450 Other: Voiding Method Bedside Commode Bedside Commode # Voids 1 - Exam - Constitutional General appearance: Present: malnourished body habitus, cooperative, mild distress, thin and chronically ill appearing - EENT Eyes: Present: anicteric sclerae, EOMI ENT: Present: hearing grossly normal, pharyngeal erythema - Respiratory Respiratory: bilateral: CTA (weak inspiratory effort) - Cardiovascular Rhythm: regular Heart sounds: normal: S1, S2 Abnormal Heart Sounds: Absent: systolic murmur, diastolic murmur, rub, S3 Gallop, S4 Gallop, click, other - Peripheral edema leg Peripheral Edema: bilateral: None - Gastrointestinal General gastrointestinal: Present: normal bowel sounds, soft - Neurologic Neurologic: Present: CNII-XII intact - Musculoskeletal Musculoskeletal: Present: generalized weakness - Psychiatric Psychiatric Comment(s): flat affect Psychiatric: Present: A&O x's 3, intact judgment & insight - Labs CBC & Chem 7: 10/20/19 11:55 10/20/19 11:55 Labs: Abnormal Lab Results - Last 24 Hours (Table) 10/19/19 Range/Units 06:11 WBC 1.1 L* (3.8-10.6) k/uL Neutrophils # (Manual) 0.40 L* (1.3-7.7) k/uL Lymphocytes # (Manual) 0.40 L (1.0-4.8) k/uL Metamyelocytes # (Man) 0.01 H (0) k/uL Assessment and Plan Plan: Assessment and Plan Nausea and vomiting: Improving - Cntinue antiemetics and zyprexa Mucocytits: Improving she - Stable - Continue supportive care Protein calorie Malnutrition: - Continue TF via dobhoff - Dieticien following Dyspnea - improving This is felt to be due to fluid overload. - Cardiology following Renal Insufficiency - Worsening/Stable - Nephrology FOllowing 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 - Tumor lysis resolved - Status POst repeat Bone Marrow biopsy Friday - Await results Left upper extremity swelling - Picc associated DVT, status post removal of the line and replacement of the other side. - platelets prior - Unable to anticoagulate due to thrombocytopenia - Start AC when platlets are greater than 50K Pancytopenia - Secondary to AML and Chemo - improved Platelets to transfuse today for 10K - Daily CBC - Irradiated products (crossmatched preferred) Keep hemoglobin greater than 7 and platelets greater than 10. Platelets appeared refractory, crossmatched to be used. This has now improved and no transfusion needed at this time Plan: - Continue daily cbc - Continue TF - Continue PT/OT Long discussion with daughter, currently patients performance is poor, will need to improve. She will also need another round of treatment (possibly decreased intensity as induction was difficult for her.) - Will discuss increased PT/OT while inpatient - Will add incentive spirometer - WIll proceed with plan of IPR prior to home. we discussed the importance of her getting out of bed, working with PT/OT and increasing activity.
[2019-10-20 12:34] LABS: HCT 27.1 % (34.0-46.0); HGB 8.8 gm/dL (11.4-16.0); MCH 30.2 pg (25.0-35.0); MCHC 32.4 g/dL (31.0-37.0); RBC 2.91 m/uL (3.80-5.40); RDW 15.3 % (11.5-15.5); WBC 1.5 k/uL (3.8-10.6)
[2019-10-20 12:39] LABS: Platelet Count 90 k/uL (150-450)
[2019-10-20 12:41] LABS: Albumin 3.4 g/dL (3.5-5.0); Calcium 8.4 mg/dL (8.4-10.2); Potassium 4.3 mmol/L (3.5-5.1); Total Bilirubin 0.8 mg/dL (0.2-1.3); Total Protein 6.8 g/dL (6.3-8.2)
[2019-10-20 13:12] LABS: Band Neutrophils % 1 %; Lymphocytes # (M) 0.33 k/uL (1.0-4.8); Neutrophils % (M) 57 %; Nucleated Red Blood Cells 0 /100 WBC (0-0); Total Cells Counted 100
[2019-10-20] MEDS ORDERED: METOCLOPRAMIDE 5 MG/ML 2 ML VIAL IVP PRN (13:16)
--- NOTE | 2019-10-20 13:19 | P.PN ---
Subjective Progress Note Date: 10/20/19 (cat charting seen at 0815) Principal diagnosis: chemo start Patient is a 74 -year-old female with a history of acute myelogenous leukemia, chronic kidney disease stage IV, anemia, hypertension, ITP and hypothyroidism who presented for induction chemotherapy. Patient seen and examined at bedside. She is feeling very fatigued. Some shortness of breath when up and moving, no nausea or vomiting today, still not much of an appetite, no chest discomfort. We had a long discussion and she would be agreeable to palliative care on discharge. She states her daughter will be with her almost 21/10 when she goes home. All questions answered best of my ability. Objective - Vital Signs Vital signs: Vital Signs Temp 98.4 F 10/20/19 05:00 Pulse 95 10/20/19 05:00 Resp 16 10/20/19 05:00 BP 146/71 10/20/19 05:00 Pulse Ox 93 L 10/20/19 05:00 Intake & Output 10/19/19 10/20/19 10/20/19 18:59 06:59 18:59 Intake Total 900 450 Output Total 850 450 Balance 50 0 Weight 50.1 kg 50.3 kg Intake: Oral 480 Tube Feeding 420 450 Output: Urine 850 450 Other: Voiding Method Bedside Commode Bedside Commode # Voids 1 - Exam General: ill appearing, no distress, appears at stated age Derm: warm, dry Head: atraumatic, normocephalic, symmetric Eyes: EOMI, no lid lag, anicteric sclera Mouth: no lip lesion, mucus membranes dry, + NGT in place Cardiovascular: S1S2 reg, no murmur, positive posterior tibial pulse bilateral, Lungs: Decreased bs bilateral, no rhonchi, no rales , no accessory muscle use Abdominal: soft, nontender to palpation, no guarding, no appreciable organomegaly Ext: no gross muscle atrophy, no edema, no contractures Neuro: CN II-XI grossly intact, no focal neuro deficits Psych: Alert, oriented, flat affect - Labs CBC & Chem 7: 10/20/19 11:55 10/20/19 11:55 Labs: Abnormal Lab Results - Last 24 Hours (Table) 10/20/19 10/20/19 Range/Units 11:55 11:55 WBC 1.5 L (3.8-10.6) k/uL RBC 2.91 L (3.80-5.40) m/uL Hgb 8.8 L (11.4-16.0) gm/dL Hct 27.1 L (34.0-46.0) % Sodium 135 L (137-145) mmol/L BUN 56 H (7-17) mg/dL Creatinine 2.55 H (0.52-1.04) mg/dL Glucose 133 H (74-99) mg/dL Albumin 3.4 L (3.5-5.0) g/dL Assessment and Plan Assessment: 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 -Status post 7 units packed red blood cells and 10 units of platelets -Follow CBC -Management per oncology - Palliative care on discharge Intractable nausea and vomiting resulting in severe protein calorie malnutrition requiring Dobbhoff placement -Continue tube feeds -Dexamethasone on Reglan scheduled will change to prn , will adjust to as needed -On Marinol for appetite stimulation PICC associated DVT -Status post PICC being changed to alternate site Acute kidney injury on chronic kidney disease stage IV -Nephro recommendations -Continue with tube feeds -Avoid additional nephrotoxic agents -Outpatient follow-up Bilateral pleural effusions - chronic, continue to monitor Hypertension, controlled -Continue with Norvasc, hydralazine Hypothyroidism -Patient was on 75 g of Synthroid prior to hospitalization now on 88 mcg -Recheck TSH -Subclinical hypothyroidism has been ruled out as the patient already had a diagnosis of hypothyroidism and was noted to have elevated TSH with normal T4 which is to be in anticipated if Synthroid dosing needs to be adjusted. Resolved: Tumor lysis syndrome
--- NOTE | 2019-10-20 16:26 | P.PN ---
Progress Note - Text Progress Note Date: 10/20/19 The patient's resting comfortably in her bed. She is tolerating tube feeds. On exam vital signs are stable. Abdomen soft. Malnutrition. Patient's is being supported with Jevity tube feeds.
--- NOTE | 2019-10-20 22:57 | PN ---
PROGRESS NOTE The patient is seen for followup for chronic kidney disease. She is resting comfortably this morning. Patient is arousable. She denies any significant complaints. The patient is tolerating her tube feeds. She has good urine output, although it is not documented. Serum creatinine has decreased to 2.5 mg/dL today. On examination, patient is comfortable. Blood pressure was 131/72, heart rate 80 per minute. Patient is afebrile. Examination of the legs shows trace edema bilaterally. Abdomen is soft, nontender. Labs show sodium of 135, potassium 4.3, BUN 56, serum creatinine 2.5 mg/dL. ASSESSMENT: 1. Chronic kidney disease, NKF stage 4, secondary to nephrosclerosis. Serum creatinine decreased back to baseline. 2. Acute kidney injury, mostly prerenal, improved with tube feeds, currently at goal. 3. AML, status post chemotherapy. 4. Hypervolemia, currently improved. Patient received Lasix over the weekend. We will continue to monitor her volume status. Chest x-ray from 10/17/2019 continues to show bilateral pleural effusions and bibasilar infiltrates. Patient is currently asymptomatic and resting comfortably while she is flat. MMODL / IJN: [id number] /
[2019-10-21] MEDS: SALT AND SODA MOUTHWASH 1,000 ML PO SCH ×7 (00:06→22:15)
[2019-10-21] MEDS: DEXAMETHASONE ORAL 4 MG/ML VIAL PO SCH ×5 (00:06→23:33)
[2019-10-21] MEDS: LEVOTHYROXINE 88 MCG TAB PO SCH (06:05)
[2019-10-21] MEDS: hydrALAZINE HCL 25 MG TAB PO SCH ×3 (07:14→22:15)
[2019-10-21] MEDS: amLODIPine 10 MG TAB PO SCH (07:14)
[2019-10-21] MEDS: SENNOSIDES-DOCUSATE SODIUM 1 EACH TAB PO SCH ×2 (07:14→20:58)
[2019-10-21] MEDS: FOLIC ACID 1 MG TAB PO SCH (07:15)
[2019-10-21] MEDS: PANTOPRAZOLE 40 MG/10 ML VIAL IVP SCH ×2 (07:15→20:58)
[2019-10-21] MEDS: polyethylene glycoL 3350 17 GM POWD.PACK PO SCH (07:17)
[2019-10-21] MEDS: VENCLEXTA 100 MG PO SCH (07:23)
[2019-10-21 08:23] LABS: Albumin 3.6 g/dL (3.5-5.0); Calcium 8.5 mg/dL (8.4-10.2); Potassium 4.3 mmol/L (3.5-5.1); Total Bilirubin 1.1 mg/dL (0.2-1.3)
[2019-10-21 08:43] LABS: HCT 27.3 % (34.0-46.0); HGB 9.1 gm/dL (11.4-16.0); MCH 30.2 pg (25.0-35.0); MCHC 33.2 g/dL (31.0-37.0); MCV 90.9 fL (80.0-100.0); Mean Platelet Volume 13.7; Platelet Count 102 k/uL (150-450); RBC 3.01 m/uL (3.80-5.40); RDW 15.4 % (11.5-15.5); WBC 2.2 k/uL (3.8-10.6)
[2019-10-21] MEDS ORDERED: bisacodyL 5 MG TABLET.DR PO STA (09:01)
[2019-10-21] MEDS ORDERED: bisacodyL 5 MG TABLET.DR PO PRN (09:01)
[2019-10-21 09:16] LABS: T4, Free (Free Thyroxine) 1.82 ng/dL (0.78-2.19)
[2019-10-21 09:42] LABS: Band Neutrophils % 4 %; Lymphocytes # (M) 0.33 k/uL (1.0-4.8); Monocytes # (M) 0.92 k/uL (0-1.0); Myelocytes # (M) 0.02 k/uL (0); Myelocytes % 1 %; Neutrophils % (M) 38 %; Nucleated Red Blood Cells 0 /100 WBC (0-0); Total Cells Counted 100
[2019-10-21 09:43] LABS: Anisocytosis (M) Present; Poikilocytosis (M) Present
--- NOTE | 2019-10-21 12:27 | PN ---
PROGRESS NOTE Patient is seen for followup for acute kidney injury and chronic kidney disease. Patient is currently doing fairly well. She has ongoing tube feedings. Overall, she appears to be better and she has had good urine output. PHYSICAL EXAMINATION: Today blood pressure was 156/76, heart rate of 99 per minute, patient is afebrile. Examination of the heart S1, S2. Examination of the lungs, bilateral breath sounds are heard. Abdomen is soft, nontender. Examination of the lower extremities shows no evidence of edema. LABS: Show sodium 137, potassium 4.3, chloride 101, BUN 50, creatinine 2.7. ASSESSMENT: 1. Chronic kidney disease, NKF stage IV. Baseline creatinine about 2.5 mg/dL. 2. Acute kidney injury, mostly prerenal. Renal function had improved with creatinine going down to 2.5 yesterday when advancement in tube feedings. However, serum creatinine is again up to 2.7 today. I will not make any changes. We will continue off of diuretics and fluids, continue with tube feedings. 3. 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 4. AML, status post chemotherapy. 5. Protein calorie malnutrition with decreased oral intake, currently with ongoing tube feeds. PLAN: Continue with the tube feedings. Continue to hold off on IV fluids or diuretics. MMODL / IJN: [id number] /
--- NOTE | 2019-10-21 14:03 | P.PN ---
Subjective Progress Note Date: 10/21/19 Principal diagnosis: chemo start Patient is a 74 -year-old female with a history of acute myelogenous leukemia, chronic kidney disease stage IV, anemia, hypertension, ITP and hypothyroidism who presented for induction chemotherapy. Patient seen and examined at bedside. She denies any pain, slight nausea this morning, no shortness of breath, no chest pain, still feeling very tired and fatigued. We discussed that she will either need to come off tube feeding or get a PEG placed prior to discharge. We will start to decreased tube feeds to encourage oral intake. She needs to get out of bed more and on her own if she wants to go home and not to rehab. Patient states she is going home and does not want rehab. Objective - Vital Signs Vital signs: Vital Signs Temp 98.3 F 10/21/19 12:49 Pulse 93 10/21/19 12:49 Resp 18 10/21/19 12:49 BP 133/67 10/21/19 12:49 Pulse Ox 94 L 10/21/19 12:49 Intake & Output 10/20/19 10/21/19 10/21/19 18:59 06:59 18:59 Intake Total 1500 450 Output Total 450 Balance 1050 450 Weight 50.3 kg Intake: Oral 960 Tube Feeding 540 450 Output: Urine 450 Other: Voiding Method Bedside Commode Bedside Commode Bedside Commode # Voids 1 - Exam General: ill appearing, no distress, appears at stated age Derm: warm, dry Head: atraumatic, normocephalic, symmetric Eyes: EOMI, no lid lag, anicteric sclera Mouth: no lip lesion, mucus membranes dry, + sony in place Cardiovascular: S1S2 reg, no murmur, positive posterior tibial pulse bilateral, Lungs: Decreased bs bilateral, no rhonchi, no rales , no accessory muscle use Abdominal: soft, nontender to palpation, no guarding, no appreciable organomegaly Ext: no gross muscle atrophy, no edema, no contractures Neuro: CN II-XI grossly intact, no focal neuro deficits Psych: Alert, oriented, flat affect - Labs CBC & Chem 7: 10/21/19 06:40 10/21/19 06:40 Labs: Abnormal Lab Results - Last 24 Hours (Table) 10/21/19 10/21/19 Range/Units 06:40 06:40 WBC 2.2 L (3.8-10.6) k/uL RBC 3.01 L (3.80-5.40) m/uL Hgb 9.1 L (11.4-16.0) gm/dL Hct 27.3 L (34.0-46.0) % Plt Count 102 L (150-450) k/uL Neutrophils # (Manual) 0.90 L (1.3-7.7) k/uL Lymphocytes # (Manual) 0.33 L (1.0-4.8) k/uL Myelocytes # (Manual) 0.02 H (0) k/uL BUN 50 H (7-17) mg/dL Creatinine 2.78 H (0.52-1.04) mg/dL TSH 6.100 H (0.465-4.680) mIU/L Assessment and Plan Assessment: 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 - pancytopenia improving, Status post 7 units packed red blood cells and 10 units of platelets - Follow CBC - Management per oncology - Palliative care on discharge Intractable nausea and vomiting resulting in severe protein calorie malnutrition requiring Dobbhoff placement -Continue tube feeds decreased rate by half to see if she can take in orals. If unable to tolerate orals would be safer to consider more permanent feeding tube options. Patient aware that TF not covered by insurance for low appetite -Dexamethasone, Reglan prn -On Marinol for appetite stimulation PICC associated DVT -Status post PICC being changed to alternate site - Plt have improved will begin eliquis if okay with oncology Acute kidney injury on chronic kidney disease stage IV -Nephro recommendations -Continue with tube feeds -Avoid additional nephrotoxic agents -Outpatient follow-up Bilateral pleural effusions - chronic, continue to monitor Hypertension, controlled -Continue with Norvasc, hydralazine Hypothyroidism -TSH still elevated and now more so, will increase levothyroxine -Recheck TSH in 4 weeks Resolved: Tumor lysis syndrome
--- NOTE | 2019-10-21 16:04 | P.PN ---
Subjective Progress Note Date: 10/21/19 Principal diagnosis: Acute Leukemia She is still weak and fatigued. Her CBC is recovering and platelets greater 50K therefore will re-evaluate UE DVT and initiate AC therapy. Objective - Vital Signs Vital signs: Vital Signs Temp 98.3 F 10/21/19 12:49 Pulse 93 10/21/19 12:49 Resp 18 10/21/19 12:49 BP 133/67 10/21/19 12:49 Pulse Ox 94 L 10/21/19 12:49 Intake & Output 10/20/19 10/21/19 10/21/19 18:59 06:59 18:59 Intake Total 1500 450 Output Total 450 Balance 1050 450 Weight 50.3 kg 50.3 kg Intake: Oral 960 Tube Feeding 540 450 Output: Urine 450 Other: Voiding Method Bedside Commode Bedside Commode Bedside Commode # Voids 1 - Exam - Constitutional General appearance: Present: malnourished body habitus, cooperative, mild distress, thin and chronically ill appearing - EENT Eyes: Present: anicteric sclerae, EOMI ENT: Present: hearing grossly normal, pharyngeal erythema - Respiratory Respiratory: bilateral: CTA (weak inspiratory effort) - Cardiovascular Rhythm: regular Heart sounds: normal: S1, S2 Abnormal Heart Sounds: Absent: systolic murmur, diastolic murmur, rub, S3 Gallop, S4 Gallop, click, other - Peripheral edema leg Peripheral Edema: bilateral: None - Gastrointestinal General gastrointestinal: Present: normal bowel sounds, soft - Neurologic Neurologic: Present: CNII-XII intact - Musculoskeletal Musculoskeletal: Present: generalized weakness - Psychiatric Psychiatric Comment(s): flat affect Psychiatric: Present: A&O x's 3, intact judgment & insight - Labs CBC & Chem 7: 10/21/19 06:40 10/21/19 06:40 Labs: Abnormal Lab Results - Last 24 Hours (Table) 10/21/19 10/21/19 Range/Units 06:40 06:40 WBC 2.2 L (3.8-10.6) k/uL RBC 3.01 L (3.80-5.40) m/uL Hgb 9.1 L (11.4-16.0) gm/dL Hct 27.3 L (34.0-46.0) % Plt Count 102 L (150-450) k/uL Neutrophils # (Manual) 0.90 L (1.3-7.7) k/uL Lymphocytes # (Manual) 0.33 L (1.0-4.8) k/uL Myelocytes # (Manual) 0.02 H (0) k/uL BUN 50 H (7-17) mg/dL Creatinine 2.78 H (0.52-1.04) mg/dL TSH 6.100 H (0.465-4.680) mIU/L Assessment and Plan Plan: Assessment and Plan Nausea and vomiting: Improving Mucocytits: Improving Protein calorie Malnutrition: - Continue TF via dobhoff - Dieticien following - Need to start increasing PO intake, to eliminate dobhoff and be stable for discharge Dyspnea - improving Renal Insufficiency - Worsening/Stable - Nephrology Following 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 - Tumor lysis resolved - Status Post repeat Bone Marrow biopsy Friday - Results do show response, although she had a very difficult time with round one and was not able to complete full round. Will discuss with Dr. Chavez plan for continuation of treatment. If rehab is needed, to increase performance this will delay treatment as this cannot be given while there. IPR would be better choice if patient candidate Left upper extremity swelling - Picc associated DVT, status post removal of the line and replacement of the other side. - Recheck doppler and initiate eliquis Pancytopenia - Secondary to AML and Chemo - improved - Continue to monitor daily - Supportive transfusions PRN Illness Myopathy and overall generalized weakness and decreased performance - Continued Re-education to patient about increasing activity and need for increased performance. SHe lives alone and cares for a dog. At her current status it is not felt she could perform her ADLs independently. - RN has been asked to increase activity, up in chair with meals and walking to bathroom rather then BSC - PT/OT has been asked to increase treatment as well. Discussed above with Primary team Discussed with Daughter Niki Will discuss eligibility with PT/OT for option of IPR (could receive at least her venetoclax) Will discuss increasing PO intake with dieticien and add PO intake Physician Attest: I have completed the above history and physical and agree with assessment and plan, dictated as a scribe.
[2019-10-21] MEDS ORDERED: RIVAROXABAN 15 MG TAB PO SCH (17:30)
--- NOTE | 2019-10-21 20:04 | P.PN ---
Progress Note - Text Progress Note Date: 10/21/19 Patient appears be stable. She is tolerating tube feeds at 35 mL an hour. Abdomen soft nontender.
[2019-10-21] MEDS: APIXABAN 5 MG TAB PO SCH (20:58)
[2019-10-22] MEDS: SALT AND SODA MOUTHWASH 1,000 ML PO SCH ×6 (02:42→22:51)
[2019-10-22] MEDS: LEVOTHYROXINE 100 MCG TAB PO SCH (05:39)
[2019-10-22] MEDS: DEXAMETHASONE ORAL 4 MG/ML VIAL PO SCH ×3 (05:39→18:08)
[2019-10-22] MEDS ORDERED: LACTULOSE 20 GM/30 ML CUP PO ONE (08:29)
[2019-10-22] MEDS: FOLIC ACID 1 MG TAB PO SCH (09:16)
[2019-10-22] MEDS: amLODIPine 10 MG TAB PO SCH (09:16)
[2019-10-22] MEDS: hydrALAZINE HCL 25 MG TAB PO SCH ×3 (09:16→22:51)
[2019-10-22] MEDS: APIXABAN 5 MG TAB PO SCH ×2 (09:17→19:58)
[2019-10-22] MEDS: PANTOPRAZOLE 40 MG/10 ML VIAL IVP SCH ×2 (09:25→19:56)
[2019-10-22] MEDS: polyethylene glycoL 3350 17 GM POWD.PACK PO SCH (09:26)
[2019-10-22] MEDS: SENNOSIDES-DOCUSATE SODIUM 1 EACH TAB PO SCH ×2 (09:26→19:59)
[2019-10-22 09:55] LABS: HGB 8.7 gm/dL (11.4-16.0); MCH 29.2 pg (25.0-35.0); MCHC 32.3 g/dL (31.0-37.0); MCV 90.4 fL (80.0-100.0); Mean Platelet Volume 13.5; Platelet Count 125 k/uL (150-450); RBC 2.99 m/uL (3.80-5.40); RDW 15.5 % (11.5-15.5); WBC 2.8 k/uL (3.8-10.6)
[2019-10-22 10:02] LABS: Calcium 8.5 mg/dL (8.4-10.2); Magnesium 1.9 mg/dL (1.6-2.3); Potassium 4.4 mmol/L (3.5-5.1)
--- NOTE | 2019-10-22 12:12 | P.PN ---
Progress Note - Text Progress Note Date: 10/22/19 Patient denies any abdominal pain. On exam vessels are stable.. Patient is having tube feeds at 35 mL an hour. She will continue receive supportive care.
[2019-10-22 12:24] LABS: Lymphocytes # (M) 0.25 k/uL (1.0-4.8); Monocytes # (M) 0.59 k/uL (0-1.0); Neutrophils # (M) 1.96 k/uL (1.3-7.7); Neutrophils % (M) 70 %; Nucleated Red Blood Cells 0 /100 WBC (0-0); Total Cells Counted 100
[2019-10-22 12:25] LABS: Anisocytosis (M) Present; Poikilocytosis (M) Present
[2019-10-22] MEDS: VENCLEXTA 100 MG PO SCH (13:39)
--- NOTE | 2019-10-22 15:00 | P.PN ---
Subjective Progress Note Date: 10/22/19 Principal diagnosis: Acute Leukemia Blood counts continue to recover although her drive to increase activity and po intake Objective - Vital Signs Vital signs: Vital Signs Temp 97.6 F 10/22/19 12:46 Pulse 78 10/22/19 12:46 Resp 17 10/22/19 12:46 BP 134/74 10/22/19 12:46 Pulse Ox 96 10/22/19 12:46 Intake & Output 10/21/19 10/22/19 10/22/19 18:59 06:59 18:59 Intake Total 520 100 Output Total 425 200 200 Balance -425 320 -100 Weight 50.3 kg 43.5 kg Intake: Oral 120 Tube Feeding 400 100 Output: Urine 425 200 200 Other: Voiding Method Bedside Commode Toilet Toilet # Voids 1 - Exam - Constitutional General appearance: Present: malnourished body habitus, cooperative, mild distress, thin and chronically ill appearing - EENT Eyes: Present: anicteric sclerae, EOMI ENT: Present: hearing grossly normal, pharyngeal erythema - Respiratory Respiratory: bilateral: CTA (weak inspiratory effort) - Cardiovascular Rhythm: regular Heart sounds: normal: S1, S2 Abnormal Heart Sounds: Absent: systolic murmur, diastolic murmur, rub, S3 Gallop, S4 Gallop, click, other - Peripheral edema leg Peripheral Edema: bilateral: None - Gastrointestinal General gastrointestinal: Present: normal bowel sounds, soft - Neurologic Neurologic: Present: CNII-XII intact - Musculoskeletal Musculoskeletal: Present: generalized weakness - Psychiatric Psychiatric Comment(s): flat affect Psychiatric: Present: A&O x's 3, intact judgment & insight - Labs CBC & Chem 7: 10/22/19 09:40 10/22/19 09:40 Labs: Abnormal Lab Results - Last 24 Hours (Table) 10/22/19 10/22/19 Range/Units 09:40 09:40 WBC 2.8 L (3.8-10.6) k/uL RBC 2.99 L (3.80-5.40) m/uL Hgb 8.7 L (11.4-16.0) gm/dL Hct 27.0 L (34.0-46.0) % Plt Count 125 L (150-450) k/uL Lymphocytes # (Manual) 0.25 L (1.0-4.8) k/uL Sodium 136 L (137-145) mmol/L BUN 51 H (7-17) mg/dL Creatinine 2.61 H (0.52-1.04) mg/dL Glucose 157 H (74-99) mg/dL Assessment and Plan Plan: Assessment and Plan Nausea and vomiting: Improving Mucocytits: Improving Protein calorie Malnutrition: - Continue TF via dobhoff, start to Wean - Dieticien following - Need to start increasing PO intake, to eliminate dobhoff and be stable for discharge Dyspnea - improving Renal Insufficiency - Worsening/Stable - Nephrology Following 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 - Tumor lysis resolved - Status Post repeat Bone Marrow biopsy Friday - Results do show response, although she had a very difficult time with round one and was not able to complete full round. Will discuss with Dr. Chavez plan for continuation of treatment. If rehab is needed, to increase performance this will delay treatment as this cannot be given while there. IPR would be better choice if patient candidate Left upper extremity swelling - Picc associated DVT, status post removal of the line and replacement of the other side. - Recheck doppler and initiate eliquis Pancytopenia - Secondary to AML and Chemo - improved - Continue to monitor daily - Supportive transfusions PRN Illness Myopathy and overall generalized weakness and decreased performance - Continued Re-education to patient about increasing activity and need for increased performance. SHe lives alone and cares for a dog. At her current status it is not felt she could perform her ADLs independently. - RN has been asked to increase activity, up in chair with meals and walking to bathroom rather then BSC - PT/OT has been asked to increase treatment as well. Will discuss eligibility with PT/OT for option of IPR (could receive at least her venetoclax) Will discuss increasing PO intake with dieticien and add PO intake and wean dophoff Physician Attest: I have completed the above history and physical and agree with assessment and plan, dictated as a scribe.
--- NOTE | 2019-10-22 15:10 | P.PN ---
Subjective Progress Note Date: 10/22/19 (delayed charting seen at 0815) Principal diagnosis: chemo start Patient is a 74 -year-old female with a history of acute myelogenous leukemia, chronic kidney disease stage IV, anemia, hypertension, ITP and hypothyroidism who presented for induction chemotherapy. Patient seen and examined at bedside. She was able to eat a little that for lunch yesterday, was not really hungry at dinner. We discussed the importance of increasing her diet and she is in agreement. She does not want to go home on tube feeds. She denies any current nausea or vomiting. She states she had 3 bowel movements yesterday but still feels as though she has more she needs to pass. Denies any chest pain or shortness of breath. He got up and sat in the chair multiple times of the day yesterday. We discussed the importance of trying a shower today. She is in agreement. Objective - Vital Signs Vital signs: Vital Signs Temp 97.6 F 10/22/19 12:46 Pulse 78 10/22/19 12:46 Resp 17 10/22/19 12:46 BP 134/74 10/22/19 12:46 Pulse Ox 96 10/22/19 12:46 Intake & Output 10/21/19 10/22/19 10/22/19 18:59 06:59 18:59 Intake Total 520 100 Output Total 425 200 200 Balance -425 320 -100 Weight 50.3 kg 43.5 kg Intake: Oral 120 Tube Feeding 400 100 Output: Urine 425 200 200 Other: Voiding Method Bedside Commode Toilet Toilet # Voids 1 - Exam General: Chronically ill appearing, no distress, appears at stated age Derm: warm, dry Head: atraumatic, normocephalic, symmetric Eyes: EOMI, no lid lag, anicteric sclera Mouth: no lip lesion, mucus membranes dry, + sony in place Cardiovascular: S1S2 reg, no murmur, positive posterior tibial pulse bilateral, Lungs: Decreased bs bilateral, no rhonchi, no rales , no accessory muscle use Abdominal: soft, nontender to palpation, no guarding, no appreciable organo megaly Ext: no gross muscle atrophy, no edema, no contractures Neuro: CN II-XI grossly intact, no focal neuro deficits Psych: Alert, oriented, flat affect - Labs CBC & Chem 7: 10/22/19 09:40 07/24/20 09:40 Labs: Abnormal Lab Results - Last 24 Hours (Table) 10/22/19 10/22/19 Range/Units 09:40 09:40 WBC 2.8 L (3.8-10.6) k/uL RBC 2.99 L (3.80-5.40) m/uL Hgb 8.7 L (11.4-16.0) gm/dL Hct 27.0 L (34.0-46.0) % Plt Count 125 L (150-450) k/uL Lymphocytes # (Manual) 0.25 L (1.0-4.8) k/uL Sodium 136 L (137-145) mmol/L BUN 51 H (7-17) mg/dL Creatinine 2.61 H (0.52-1.04) mg/dL Glucose 157 H (74-99) mg/dL Assessment and Plan Assessment: 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 - pancytopenia improving, Status post 7 units packed red blood cells and 10 units of platelets - Follow CBC - Management per oncology - Palliative care on discharge Intractable nausea and vomiting resulting in severe protein calorie malnutrition requiring Dobbhoff placement -Continue tube feeds at 25 cc/hr encourage oral intake. If unable to tolerate orals would be safer to consider more permanent feeding tube options. Patient aware that TF not covered by insurance for low appetite -Dexamethasone, Reglan prn -On Marinol for appetite stimulation PICC associated DVT -Status post PICC being changed to alternate site -Eliquis on discharge, RX sent Acute kidney injury on chronic kidney disease stage IV -Nephro recommendations -Continue with tube feeds -Avoid additional nephrotoxic agents -Outpatient follow-up Bilateral pleural effusions - chronic, continue to monitor Hypertension, controlled -Continue with Norvasc, hydralazine Hypothyroidism -TSH still elevated and now more so, will increase levothyroxine -Recheck TSH in 4 weeks Resolved: Tumor lysis syndrome Hyperkalemia hypokalemia hypocalcemia hypomagnesemia hyponatremia bradycardia with left bundle branch block acute hypoxic respiratory failure
--- NOTE | 2019-10-22 17:12 | PN ---
PROGRESS NOTE Patient is seen for followup for chronic kidney disease. She is currently sitting up on a bedside chair. Patient is comfortable. She denies any complaints. She is maintained on tube feedings. On examination this morning, blood pressure was 157/77, heart rate 80 per minute. She is afebrile. EXAMINATION OF THE HEART: S1 and S2. EXAMINATION OF LUNGS: Bilateral breath sounds are heard. ABDOMEN: Soft, non-tender. Examination of lower extremities shows no significant edema. KILN FEEDER exam is grossly intact. Labs show sodium of 136, potassium 4.4, BUN 51, creatinine 2.6, hemoglobin 8.7 g/dL. ASSESSMENT: 1. Chronic kidney disease, currently stable, NKF stage IV. Renal function close to baseline. 2. Acute kidney injury, somewhat improved; serum creatinine fluctuating between 2.5 and 2.7 mg/dL. Today it is down to 2.6. Continue with goal tube feedings and free water. Continue to hold off on diuretics. 3. AML, status post chemotherapy. 4. 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 5. Hypertension, now controlled. PLAN: Continue tube feedings at goal rate. Continue current antihypertensive regimen. Encourage increased oral intake as well. MMODL / IJN: [id number] /
[2019-10-23] MEDS: DEXAMETHASONE ORAL 4 MG/ML VIAL PO SCH ×4 (01:09→17:04)
[2019-10-23] MEDS: SALT AND SODA MOUTHWASH 1,000 ML PO SCH ×6 (04:49→23:40)
[2019-10-23] MEDS: LEVOTHYROXINE 100 MCG TAB PO SCH (05:55)
[2019-10-23] MEDS: amLODIPine 10 MG TAB PO SCH (07:26)
[2019-10-23] MEDS: APIXABAN 5 MG TAB PO SCH ×2 (07:27→20:22)
[2019-10-23] MEDS: FOLIC ACID 1 MG TAB PO SCH (07:29)
[2019-10-23] MEDS: hydrALAZINE HCL 25 MG TAB PO SCH ×3 (07:29→21:18)
[2019-10-23] MEDS: VENCLEXTA 100 MG PO SCH (07:30)
[2019-10-23] MEDS: PANTOPRAZOLE 40 MG/10 ML VIAL IVP SCH ×2 (07:30→20:22)
[2019-10-23] MEDS: polyethylene glycoL 3350 17 GM POWD.PACK PO SCH (07:30)
[2019-10-23] MEDS: SENNOSIDES-DOCUSATE SODIUM 1 EACH TAB PO SCH (07:30)
[2019-10-23 08:07] LABS: HCT 23.3 % (34.0-46.0); HGB 7.6 gm/dL (11.4-16.0); MCH 29.4 pg (25.0-35.0); MCHC 32.5 g/dL (31.0-37.0); MCV 90.5 fL (80.0-100.0); Mean Platelet Volume 13.3; RBC 2.58 m/uL (3.80-5.40); RDW 15.2 % (11.5-15.5); WBC 1.5 k/uL (3.8-10.6)
[2019-10-23 08:16] LABS: Calcium 7.8 mg/dL (8.4-10.2); Potassium 4.7 mmol/L (3.5-5.1)
[2019-10-23 09:00] LABS: Band Neutrophils % 5 %; Lymphocytes # (M) 0.26 k/uL (1.0-4.8); Monocytes # (M) 0.18 k/uL (0-1.0); Neutrophils % (M) 66 %; Nucleated Red Blood Cells 0 /100 WBC (0-0); Total Cells Counted 100
[2019-10-23 09:01] LABS: Large Platelets Present; Platelet Count 86 k/uL (150-450); Poikilocytosis (M) Present
--- NOTE | 2019-10-23 10:28 | P.PN ---
Subjective Progress Note Date: 10/23/19 Patient states that she did well with physical therapy yesterday. She reports some increase in appetite, but states she does not like the hospital food. No obvious bleeding. No fevers/chills/nausea/vomiting. Objective - Vital Signs Vital signs: Vital Signs Temp 97.9 F 10/23/19 06:16 Pulse 88 10/23/19 07:50 Resp 15 10/23/19 06:16 BP 134/69 10/23/19 06:16 Pulse Ox 97 10/23/19 06:16 Intake & Output 10/22/19 10/23/19 10/23/19 18:59 06:59 18:59 Intake Total 200 300 Output Total 400 Balance -200 300 Intake: Tube Feeding 200 300 Output: Urine 400 Other: Voiding Method Toilet Toilet # Voids 1 # Bowel Movements 2 1 - Constitutional General appearance: Present: no acute distress - EENT Eyes: Present: EOMI ENT: Present: hearing grossly normal, normal oropharynx - Respiratory Respiratory: bilateral: CTA - Cardiovascular Rhythm: regular - Gastrointestinal General gastrointestinal: Present: normal bowel sounds, soft - Integumentary Integumentary: Present: normal - Neurologic Neurologic: Present: CNII-XII intact - Musculoskeletal Musculoskeletal: Present: generalized weakness, strength equal bilaterally - Psychiatric Psychiatric: Present: A&O x's 3, appropriate affect - Labs CBC & Chem 7: 10/23/19 07:15 10/23/19 07:15 Labs: Abnormal Lab Results - Last 24 Hours (Table) 10/22/19 10/23/19 10/23/19 Range/Units 09:40 07:15 07:15 WBC 1.5 L (3.8-10.6) k/uL RBC 2.58 L (3.80-5.40) m/uL Hgb 7.6 L (11.4-16.0) gm/dL Hct 23.3 L (34.0-46.0) % Plt Count 125 L 86 L (150-450) k/uL Neutrophils # (Manual) 1.00 L (1.3-7.7) k/uL Lymphocytes # (Manual) 0.25 L 0.26 L (1.0-4.8) k/uL Sodium 135 L (137-145) mmol/L BUN 52 H (7-17) mg/dL Creatinine 2.33 H (0.52-1.04) mg/dL Calcium 7.8 L (8.4-10.2) mg/dL Assessment and Plan (1) Acute myeloid leukemia Narrative/Plan: The patient's bone marrow had shown a very good partial response. She still however had about 7-8% blasts. Blood counts were improving, as expected with the response. However today blood counts are slightly lower than yesterday. 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 - The patient was advised that for continued benefit against leukemia, we would need to start her back on treatment as soon as possible. She had questions about problems in the future. She was advised that this could not be predicted unless she is challenged. It is however possible that given the decreased burde n of disease at this time tolerance could be somewhat better. At this time the plan is to resume the patient on Venetoclax, if she is improved enough for discharge. Current Visit: Yes Status: Acute Priority: High Code(s): C92.00 - ACUTE MYELOBLASTIC LEUKEMIA, NOT HAVING ACHIEVED REMISSION SNOMED Code(s): 55124753 (2) Left upper extremity swelling Narrative/Plan: PICC line has been removed and the patient started on anticoagulation once her platelet counts improved. Continue to monitor platelet counts. We'll repeat Doppler of the left lower extremity to check for resolution of the clot as I'm not sure how long we can continue the anticoagulation especially if the patient resumes treatment for her leukemia Current Visit: Yes Status: Acute Priority: High Code(s): M79.89 - OTHER SPECIFIED SOFT TISSUE DISORDERS SNOMED Code(s): 265015191 (3) Pancytopenia Narrative/Plan: Due to underlying AML, treatment effect, and MDS. Counts have been improving due to response to treatment. However counts today were somewhat less than yesterday though still in a safe range. The implications were discussed with the patient, as noted above. Current Visit: Yes Status: Acute Priority: High Code(s): D61.818 - OTHER PANCYTOPENIA SNOMED Code(s): 304605295 (4) Tumor lysis syndrome following antineoplastic drug therapy Narrative/Plan: Resolved. If the patient is able to resume treatment in the near future, the risk of recurrence would be much lower than before given the markedly decreased burden of disease compared to before her first cycle. Current Visit: Yes Status: Resolved Priority: High Code(s): E88.3 - TUMOR LYSIS SYNDROME; T45.1X5A - ADVERSE EFFECT OF ANTINEOPLASTIC AND IMMUNOSUP DRUGS, INIT SNOMED Code(s): 218843684 Plan: The patient's to feed is being decreased to try to improve her on appetite and oral intake. Nursing was advised that patient can take food from home.
--- NOTE | 2019-10-23 11:34 | P.PN ---
Subjective Progress Note Date: 10/23/19 (delayed charting seen at 0845) Principal diagnosis: chemo start Patient is a 74 -year-old female with a history of acute myelogenous leukemia, chronic kidney disease stage IV, anemia, hypertension, ITP and hypothyroidism who presented for induction chemotherapy. Patient seen and examined at bedside. Feeling much improved today. No chest pain, no nausea, + multiple large BM yesterday. Walked with OT and did well needing minimal assistance. Objective - Vital Signs Vital signs: Vital Signs Temp 97.9 F 10/23/19 06:16 Pulse 88 10/23/19 07:50 Resp 15 10/23/19 06:16 BP 134/69 10/23/19 06:16 Pulse Ox 97 10/23/19 06:16 Intake & Output 10/22/19 10/23/19 10/23/19 18:59 06:59 18:59 Intake Total 200 300 Output Total 400 Balance -200 300 Intake: Tube Feeding 200 300 Output: Urine 400 Other: Voiding Method Toilet Toilet # Voids 1 # Bowel Movements 2 1 - Exam General: Chronically ill appearing, no distress, appears at stated age Derm: warm, dry Head: atraumatic, normocephalic, symmetric Eyes: EOMI, no lid lag, anicteric sclera Mouth: no lip lesion, mucus membranes dry, + sony in place Cardiovascular: S1S2 reg, no murmur, positive posterior tibial pulse bilateral, Lungs: Decreased bs bilateral, no rhonchi, no rales , no accessory muscle use Abdominal: soft, nontender to palpation, no guarding, no appreciable organomegaly Ext: no gross muscle atrophy, no edema, no contractures Neuro: CN II-XI grossly intact, no focal neuro deficits Psych: Alert, oriented, flat affect - Labs CBC & Chem 7: 10/23/19 07:15 10/23/19 07:15 Labs: Abnormal Lab Results - Last 24 Hours (Table) 10/22/19 10/22/19 10/23/19 Range/Units 09:40 09:40 07:15 WBC 2.8 L 1.5 L (3.8-10.6) k/uL RBC 2.99 L 2.58 L (3.80-5.40) m/uL Hgb 8.7 L 7.6 L (11.4-16.0) gm/dL Hct 27.0 L 23.3 L (34.0-46.0) % Plt Count 125 L 86 L (150-450) k/uL Neutrophils # (Manual) 1.00 L (1.3-7.7) k/uL Lymphocytes # (Manual) 0.25 L 0.26 L (1.0-4.8) k/uL Sodium 136 L (137-145) mmol/L BUN 51 H (7-17) mg/dL Creatinine 2.61 H (0.52-1.04) mg/dL Glucose 157 H (74-99) mg/dL Calcium (8.4-10.2) mg/dL 10/23/19 Range/Units 07:15 WBC (3.8-10.6) k/uL RBC (3.80-5.40) m/uL Hgb (11.4-16.0) gm/dL Hct (34.0-46.0) % Plt Count (150-450) k/uL Neutrophils # (Manual) (1.3-7.7) k/uL Lymphocytes # (Manual) (1.0-4.8) k/uL Sodium 135 L (137-145) mmol/L BUN 52 H (7-17) mg/dL Creatinine 2.33 H (0.52-1.04) mg/dL Glucose (74-99) mg/dL Calcium 7.8 L (8.4-10.2) mg/dL Assessment and Plan Assessment: 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 - Pancytopenia, Status post 7 units packed red blood cells and 10 units of platelets - Follow CBC - Management per oncology - Palliative care on discharge Intractable nausea and vomiting resulting in severe protein calorie malnutrition requiring Dobbhoff placement -Continue to decrease tube feedings -Dexamethasone, Reglan prn -On Marinol for appetite stimulation PICC associated DVT -Status post PICC being changed to alternate site -Eliquis on discharge, RX sent Constipation, resolved - Doing well and resolved, Acute kidney injury on chronic kidney disease stage IV -Nephro recommendations -Continue with tube feeds -Avoid additional nephrotoxic agents -Outpatient follow-up Bilateral pleural effusions - chronic, continue to monitor Hypertension, controlled -Continue with Norvasc, hydralazine Hypothyroidism -TSH still elevated and now more so, will increase levothyroxine -Recheck TSH in 4 weeks Resolved: Tumor lysis syndrome Hyperkalemia hypokalemia hypocalcemia hypomagnesemia hyponatremia bradycardia with left bundle branch block acute hypoxic respiratory failure
[2019-10-23 11:39] LABS: Glucose,Whole Blood 135 mg/dL (75-99)
--- NOTE | 2019-10-23 13:41 | PN ---
PROGRESS NOTE REASON FOR FOLLOWUP: For chronic kidney disease. She is currently in a shower. Patient denies any significant complaints. Blood pressure was noted to be 134/69, heart rate 88 per minute. Tube feeds were decreased. Patient is tolerating increased oral intake. She has had good urine output. Renal function is fairly stable. Creatinine was down to 2.3 today. ASSESSMENT: 1. Chronic kidney disease, NKF stage IV, currently stable. 2. Acute kidney injury with improvement in renal function with tube feeding. Patient is encouraged to maintain good oral intake. 3. Acute myelocytic leukemia, status post chemotherapy. 4. 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 5. Hypertension, controlled. PLAN: Continue to encourage increased oral intake. Continue to avoid nephrotoxic agents. MMODL / IJN: [id number] /
[2019-10-23 13:47] LABS: Glucose,Whole Blood 124 mg/dL (75-99)
--- NOTE | 2019-10-23 14:56 | US ---
EXAMINATION TYPE: US venous doppler duplex UE LT DATE OF EXAM: 10/23/2019 COMPARISON: NONE CLINICAL HISTORY: DVT. HX of DVT chemo patient limitations patient has very small vessels. SIDE PERFORMED: Left Left Arm: Negative for DVT There is patency demonstrated in the subclavian axillary and brachial veins. There is patency of the radial and ulnar veins. IMPRESSION: No sign of left arm deep vein thrombosis.
--- NOTE | 2019-10-23 15:21 | P.PN ---
Subjective Progress Note Date: 10/23/19 CHIEF COMPLAINT: AML HISTORY OF PRESENT ILLNESS: The patient is a 74-year-old female with AML. She has a feeding tube with Dobhoff. She is sleeping well. She is resting comfortably. Per nursing, she is having a good day. She had multiple bowel movements. ROS: No reports of nausea and vomiting. No fevers or chills. No new chest pain. No productive sputum PHYSICAL EXAM: VITAL SIGNS: Reviewed CONSTITUTIONAL: Well developed and in no acute distress. EYES: Conjuctivae without sclera icterus. Extraocular movements grossly intact. HEAD, EARS, NOSE, THROAT: Moist buccal mucosa. Head is atraumatic, normocephalic. Hears conversational speech. No nasal drainage. NECK: Supple. No thyroidomegaly. RESPIRATORY: Non-labored respirations and equal bilateral excursions. CARDIOVASCULAR: Palpable 2+ radial pulses. Regular rate. Regular rhythm. ABDOMEN: Incisions clean dry and intact. Soft. No peritonitis. Minimal tenderness left upper quadrant. MUSCULOSKELETAL: No gross deformity of the lower extremities noted. No clubbing. No cyanosis. SKIN: Good skin turgor. Well perfused. NEUROLOGIC: Cranial nerves II through XII grossly intact. No focal or lateralizing signs. PSYCH: Appropriate affect. Alert and oriented to person, place and time. CLINICAL LABS: White blood cell count 1.5. Hgb down 8.7 to 7.6 ASSESSMENT: 1. AML PLAN: 1. Continue tube feeds. 2. Will follow as needed. Objective - Vital Signs Vital signs: Vital Signs Temp 97.9 F 10/23/19 12:46 Pulse 74 10/23/19 12:46 Resp 16 10/23/19 12:46 BP 133/67 10/23/19 12:46 Pulse Ox 98 10/23/19 12:46 Intake & Output 10/22/19 10/23/19 10/23/19 18:59 06:59 18:59 Intake Total 200 300 250 Output Total 400 Balance -200 300 250 Weight 49.5 kg Intake: Oral 250 Tube Feeding 200 300 Output: Urine 400 Other: Voiding Method Toilet Toilet # Voids 1 1 # Bowel Movements 2 1 1 - Labs CBC & Chem 7: 10/23/19 07:15 10/23/19 07:15 Labs: Abnormal Lab Results - Last 24 Hours (Table) 10/23/19 10/23/19 10/23/19 Range/Units 07:15 07:15 11:28 WBC 1.5 L (3.8-10.6) k/uL RBC 2.58 L (3.80-5.40) m/uL Hgb 7.6 L (11.4-16.0) gm/dL Hct 23.3 L (34.0-46.0) % Plt Count 86 L (150-450) k/uL Neutrophils # (Manual) 1.00 L (1.3-7.7) k/uL Lymphocytes # (Manual) 0.26 L (1.0-4.8) k/uL Sodium 135 L (137-145) mmol/L BUN 52 H (7-17) mg/dL Creatinine 2.33 H (0.52-1.04) mg/dL POC Glucose (mg/dL) 135 H (75-99) mg/dL Calcium 7.8 L (8.4-10.2) mg/dL 10/23/19 Range/Units 13:44 WBC (3.8-10.6) k/uL RBC (3.80-5.40) m/uL Hgb (11.4-16.0) gm/dL Hct (34.0-46.0) % Plt Count (150-450) k/uL Neutrophils # (Manual) (1.3-7.7) k/uL Lymphocytes # (Manual) (1.0-4.8) k/uL Sodium (137-145) mmol/L BUN (7-17) mg/dL Creatinine (0.52-1.04) mg/dL POC Glucose (mg/dL) 124 H (75-99) mg/dL Calcium (8.4-10.2) mg/dL Assessment and Plan (1) Acute myeloid leukemia Current Visit: Yes Status: Acute Priority: High Code(s): C92.00 - ACUTE MYELOBLASTIC LEUKEMIA, NOT HAVING ACHIEVED REMISSION SNOMED Code(s): 73943686 (2) Anemia Current Visit: No Status: Acute Code(s): D64.9 - ANEMIA, UNSPECIFIED SNOMED Code(s): 892105748
[2019-10-23 15:40] LABS: Glucose,Whole Blood 157 mg/dL (75-99)
[2019-10-24] MEDS: DEXAMETHASONE ORAL 4 MG/ML VIAL PO SCH ×5 (01:12→23:32)
[2019-10-24] MEDS: SALT AND SODA MOUTHWASH 1,000 ML PO SCH ×6 (03:35→22:42)
[2019-10-24] MEDS: LEVOTHYROXINE 100 MCG TAB PO SCH (05:57)
[2019-10-24 08:11] LABS: HCT 25.4 % (34.0-46.0); HGB 8.2 gm/dL (11.4-16.0); MCH 29.1 pg (25.0-35.0); MCHC 32.1 g/dL (31.0-37.0); MCV 90.6 fL (80.0-100.0); RDW 15.4 % (11.5-15.5); WBC 1.5 k/uL (3.8-10.6)
[2019-10-24] MEDS: DOCUSATE 100 MG CAP PO SCH (08:14)
[2019-10-24] MEDS: APIXABAN 5 MG TAB PO SCH ×2 (08:14→20:44)
[2019-10-24] MEDS: amLODIPine 10 MG TAB PO SCH (08:14)
[2019-10-24] MEDS: hydrALAZINE HCL 25 MG TAB PO SCH ×3 (08:14→20:45)
[2019-10-24] MEDS: VENCLEXTA 100 MG PO SCH (08:15)
[2019-10-24] MEDS: FOLIC ACID 1 MG TAB PO SCH (08:15)
[2019-10-24] MEDS: PANTOPRAZOLE 40 MG/10 ML VIAL IVP SCH ×2 (08:15→20:44)
[2019-10-24 08:17] LABS: Albumin 3.5 g/dL (3.5-5.0); Calcium 7.8 mg/dL (8.4-10.2); Potassium 4.3 mmol/L (3.5-5.1); Total Bilirubin 0.8 mg/dL (0.2-1.3); Total Protein 6.8 g/dL (6.3-8.2)
[2019-10-24 08:27] LABS: Platelet Count 98 k/uL (150-450)
[2019-10-24 09:55] LABS: Band Neutrophils % 1 %; Large Platelets Present; Lymphocytes # (M) 0.56 k/uL (1.0-4.8); Metamyelocytes # (M) 0.03 k/uL (0); Metamyelocytes % 2 %; Monocytes # (M) 0.32 k/uL (0-1.0); Neutrophils % (M) 39 %; Nucleated Red Blood Cells 0 /100 WBC (0-0); Total Cells Counted 100
[2019-10-24 09:56] LABS: Poikilocytosis (M) Present
--- NOTE | 2019-10-24 10:44 | P.PN ---
Subjective Progress Note Date: 10/24/19 The patient continues to show incremental improvement. Feeding tube has been discontinued. She had food brought from home by her daughter yesterday and tolerated it well. She denies any obvious bleeding. She has been more active, walking outside in the corridor. No fever/chills/nausea/vomiting Objective - Vital Signs Vital signs: Vital Signs Temp 98.2 F 10/24/19 06:11 Pulse 81 10/24/19 06:11 Resp 16 10/24/19 06:11 BP 155/75 10/24/19 06:11 Pulse Ox 97 10/24/19 06:11 Intake & Output 10/23/19 10/24/19 10/24/19 18:59 06:59 18:59 Intake Total 250 200 0 Balance 250 200 0 Weight 48.1 kg Intake: Oral 250 Tube Feeding 200 0 Other: Voiding Method Toilet Toilet # Voids 1 1 # Bowel Movements 1 1 - Constitutional General appearance: Present: no acute distress - EENT Eyes: Present: EOMI ENT: Present: hearing grossly normal, normal oropharynx - Respiratory Respiratory: bilateral: diminished (At bases) - Cardiovascular Rhythm: regular Heart sounds: normal: S1, S2 - Gastrointestinal General gastrointestinal: Present: normal bowel sounds, soft - Integumentary Integumentary: Present: normal - Neurologic Neurologic: Present: CNII-XII intact - Musculoskeletal Musculoskeletal: Present: generalized weakness (Improved), strength equal bilaterally - Psychiatric Psychiatric: Present: A&O x's 3, appropriate affect - Labs CBC & Chem 7: 10/24/19 07:39 10/24/19 07:39 Labs: Abnormal Lab Results - Last 24 Hours (Table) 10/23/19 10/23/19 10/23/19 Range/Units 11:28 13:44 15:37 WBC (3.8-10.6) k/uL RBC (3.80-5.40) m/uL Hgb (11.4-16.0) gm/dL Hct (34.0-46.0) % Plt Count (150-450) k/uL Neutrophils # (Manual) (1.3-7.7) k/uL Lymphocytes # (Manual) (1.0-4.8) k/uL Metamyelocytes # (Man) (0) k/uL BUN (7-17) mg/dL Creatinine (0.52-1.04) mg/dL POC Glucose (mg/dL) 135 H 124 H 157 H (75-99) mg/dL Calcium (8.4-10.2) mg/dL 10/24/19 10/24/19 Range/Units 07:39 07:39 WBC 1.5 L (3.8-10.6) k/uL RBC 2.80 L (3.80-5.40) m/uL Hgb 8.2 L (11.4-16.0) gm/dL Hct 25.4 L (34.0-46.0) % Plt Count 98 L (150-450) k/uL Neutrophils # (Manual) 0.60 L (1.3-7.7) k/uL Lymphocytes # (Manual) 0.56 L (1.0-4.8) k/uL Metamyelocytes # (Man) 0.03 H (0) k/uL BUN 47 H (7-17) mg/dL Creatinine 2.39 H (0.52-1.04) mg/dL POC Glucose (mg/dL) (75-99) mg/dL Calcium 7.8 L (8.4-10.2) mg/dL Assessment and Plan (1) Acute myeloid leukemia Narrative/Plan: Good partial remission following treatment. Currently treatment is on hold because of multiple issues related to this hospitalization. At this time the plan is to resume Venetoclax at the time of discharge. She will then follow-up with Dr. Chavez in the office, with likely a plan to be rechallenged with HMA resuming her performance status is adequate. Current Visit: Yes Status: Acute Priority: High Code(s): C92.00 - ACUTE MYELOBLASTIC LEUKEMIA, NOT HAVING ACHIEVED REMISSION SNOMED Code(s): 77227650 (2) Left upper extremity swelling Narrative/Plan: Repeat Doppler shows resolution of the clot in the left upper extremity. Continue anticoagulation as long as platelets are adequate, greater than 50,000 Current Visit: Yes Status: Acute Priority: High Code(s): M79.89 - OTHER SPECIFIED SOFT TISSUE DISORDERS SNOMED Code(s): 500910075 (3) Pancytopenia Narrative/Plan: P2 underlying marrow condition as well as affect of treatment. Counts are fairly stable compared to yesterday. Continue to monitor and transfuse as needed to keep hemoglobin greater than 7. Current Visit: Yes Status: Acute Priority: High Code(s): D61.818 - OTHER PANCYTOPENIA SNOMED Code(s): 671413583 (4) Tumor lysis syndrome following antineoplastic drug therapy Narrative/Plan: No evidence of the same at this time. Given decrease in tumor burden, risk of recurrence is going to be lower as and when the patient is able to resume treatment. Current Visit: Yes Status: Resolved Priority: High Code(s): E88.3 - TUMOR LYSIS SYNDROME; T45.1X5A - ADVERSE EFFECT OF ANTINEOPLASTIC AND IMMUNOSUP DRUGS, INIT SNOMED Code(s): 046019574 Plan: - Tube feeds have been discontinued and the patient is tolerating orals well. She is doing better with food brought from home than from the hospital. - Patient encourage to continue to increase mobility and also use the incentive spirometer.
--- NOTE | 2019-10-24 13:58 | P.PN ---
Subjective Progress Note Date: 10/24/19 Principal diagnosis: Thrombocytopenia Patient was seen and examined. No acute events overnight. Dobbhoff discontinued this morning. Patient tolerating diet well. Able to ambulate the hallways without much difficulties. Patient denies any chest pain or palpitations. No nausea or vomiting. No fever or chills. Wanting to go home. Objective - Vital Signs Vital signs: Vital Signs Temp 98.4 F 10/24/19 12:55 Pulse 87 10/24/19 12:55 Resp 16 10/24/19 12:55 BP 148/72 10/24/19 12:55 Pulse Ox 95 10/24/19 12:55 Intake & Output 10/23/19 10/24/19 10/24/19 18:59 06:59 18:59 Intake Total 250 200 0 Balance 250 200 0 Weight 48.1 kg Intake: Oral 250 Tube Feeding 200 0 Other: Voiding Method Toilet Toilet # Voids 1 1 # Bowel Movements 1 1 - Exam General: [non toxic, appears pale], [no distress], [appears at stated age] Derm: [warm], [dry] Head: [atraumatic], [normocephalic], [symmetric] Eyes: [EOMI], [no lid lag], [anicteric sclera] Mouth: [no lip lesion], [mucus membranes moist] Cardiovascular: [S1S2 reg], [systolic murmur], [positive DP pulse bilateral], Lungs: [Decreased breath sounds bilateral], [no rhonchi, no rales] , [no accessory muscle use] Abdominal: [soft], [ nontender to palpation with decreased bowel sounds], [no guarding], [no appreciable organomegaly] Ext: [no gross muscle atrophy], [no edema], [no contractures] Neuro: [no focal neuro deficits] Psych: [Alert and oriented 3, flat affect] - Labs CBC & Chem 7: 10/24/19 07:39 10/24/19 07:39 Labs: Abnormal Lab Results - Last 24 Hours (Table) 10/23/19 10/24/19 10/24/19 Range/Units 15:37 07:39 07:39 WBC 1.5 L (3.8-10.6) k/uL RBC 2.80 L (3.80-5.40) m/uL Hgb 8.2 L (11.4-16.0) gm/dL Hct 25.4 L (34.0-46.0) % Plt Count 98 L (150-450) k/uL Neutrophils # (Manual) 0.60 L (1.3-7.7) k/uL Lymphocytes # (Manual) 0.56 L (1.0-4.8) k/uL Metamyelocytes # (Man) 0.03 H (0) k/uL BUN 47 H (7-17) mg/dL Creatinine 2.39 H (0.52-1.04) mg/dL POC Glucose (mg/dL) 157 H (75-99) mg/dL Calcium 7.8 L (8.4-10.2) mg/dL Assessment and Plan Assessment: 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 - Pancytopenia, Status post 7 units packed red blood cells and 10 units of platelets - Follow CBC - Management per oncology - Palliative care on discharge Intractable nausea and vomiting resulting in severe protein calorie malnutrition requiring Dobbhoff placement -Encourage oral intake -Dexamethasone, Reglan prn -On Marinol for appetite stimulation PICC associated DVT -Status post PICC being changed to alternate site -Eliquis on discharge, RX sent Constipation, resolved - Doing well and resolved Acute kidney injury on chronic kidney disease stage IV -Nephro recommendations -Avoid additional nephrotoxic agents -Outpatient follow-up Bilateral pleural effusions - chronic, continue to monitor Hypertension, controlled -Continue with Norvasc, hydralazine Hypothyroidism -TSH still elevated and now more so, will increase levothyroxine -Recheck TSH in 4 weeks Resolved: Tumor lysis syndrome Hyperkalemia hypokalemia hypocalcemia hypomagnesemia hyponatremia bradycardia with left bundle branch block acute hypoxic respiratory failure [Patient has improved significantly since admission. Dobbhoff discontinued. Patient encouraged oral intake. Patient encouraged increased ambulation. Plans on DC home tomorrow if patient continues to progress well. Discussed with oncology.]
[2019-10-24 14:22] VITALS: BMI 23.8
--- NOTE | 2019-10-24 15:21 | PN ---
PROGRESS NOTE Patient is seen for followup for chronic kidney disease and acute kidney injury. She is currently doing well. Serum creatinine has improved and staying at about 2.3 mg/dL. Tube feeds have been decreased and patient has increased her oral intake. PHYSICAL EXAMINATION: On examination today, blood pressure was 148/72, heart rate 87 per minute, patient is afebrile. She is sitting on a bedside chair. She is comfortable. Denies any significant complaints. Examination of the heart S1, S2. Examination of lungs, bilateral breath sounds are heard. Abdomen is soft, nontender. Examination of lower extremities shows no edema. RATE SUPERVISOR exam grossly intact. LABS: Show hemoglobin 8.2, white cell count 1.5, sodium 138, potassium 4.3, chloride 104. BUN 47, serum creatinine 2.39. ASSESSMENT: 1. Acute kidney injury, prerenal, currently improved. 2. Chronic kidney disease stage 4 secondary to nephrosclerosis. Baseline creatinine 2.3-2.5 mg/dL. 3. AML, status post chemotherapy. 4. Generalized debility, currently improved. 5. Protein calorie malnutrition, improved with tube feedings. Currently patient's tube feedings have been decreased and she has increased her oral intake through the mouth. PLAN: Patient is stable for discharge from nephrology standpoint. She should follow up as outpatient for CKD management post discharge. MMODL / IJN: [id number] /
[2019-10-24 20:56] VITALS: RESP 14
[2019-10-25] MEDS: SALT AND SODA MOUTHWASH 1,000 ML PO SCH ×2 (02:59→10:07)
[2019-10-25 06:13] VITALS: BP 148/67; PULSE 89; TEMP 98.3
[2019-10-25] MEDS: LEVOTHYROXINE 100 MCG TAB PO SCH (06:24)
[2019-10-25] MEDS: DEXAMETHASONE ORAL 4 MG/ML VIAL PO SCH (06:24)
[2019-10-25 09:11] LABS: HCT 23.1 % (34.0-46.0); HGB 7.9 gm/dL (11.4-16.0); MCH 30.8 pg (25.0-35.0); MCV 90.6 fL (80.0-100.0); Mean Platelet Volume 13.3; RBC 2.55 m/uL (3.80-5.40); RDW 15.5 % (11.5-15.5); WBC 2.3 k/uL (3.8-10.6)
[2019-10-25 09:12] LABS: Platelet Count 92 k/uL (150-450)
[2019-10-25 09:17] LABS: Albumin 3.4 g/dL (3.5-5.0); Potassium 3.9 mmol/L (3.5-5.1); Total Bilirubin 0.9 mg/dL (0.2-1.3); Total Protein 6.7 g/dL (6.3-8.2)
[2019-10-25] MEDS: APIXABAN 5 MG TAB PO SCH (09:29)
[2019-10-25] MEDS: VENCLEXTA 100 MG PO SCH (09:30)
[2019-10-25] MEDS: FOLIC ACID 1 MG TAB PO SCH (09:31)
[2019-10-25] MEDS: DOCUSATE 100 MG CAP PO SCH (09:31)
[2019-10-25] MEDS: hydrALAZINE HCL 25 MG TAB PO SCH (09:31)
[2019-10-25] MEDS: PANTOPRAZOLE 40 MG/10 ML VIAL IVP SCH (09:33)
[2019-10-25] MEDS: amLODIPine 10 MG TAB PO SCH (10:07)
[2019-10-25 10:11] LABS: Band Neutrophils % 1 %; Lymphocytes # (M) 0.62 k/uL (1.0-4.8); Metamyelocytes # (M) 0.02 k/uL (0); Metamyelocytes % 1 %; Monocytes # (M) 0.25 k/uL (0-1.0); Myelocytes # (M) 0.05 k/uL (0); Myelocytes % 2 %; Neutrophils % (M) 60 %; Nucleated Red Blood Cells 0 /100 WBC (0-0); Total Cells Counted 200
[2019-10-25 10:13] LABS: Large Platelets Present; Polychromasia Present
--- NOTE | 2019-10-25 10:29 | P.PN ---
Subjective Patient is seen in follow-up for acute kidney injury on chronic kidney disease. Renal function is a little improved. Hemoglobin stable at 7.9 this morning. She has received blood as well as platelet transfusions this admission. Denies chest pain or shortness of breath. Oral intake is fair. Good urine output. No vomiting or diarrhea. Vital signs are stable. General: The patient appeared well nourished and normally developed. HEENT: Head exam is unremarkable. Neck is without jugular venous distension. LUNGS: Lungs are clear to auscultation and percussion. Breath sounds decreased. HEART: Rate and Rhythm are regular. ABDOMEN: Soft, nontender. EXTREMITITES: No clubbing, cyanosis, or edema. Objective - Vital Signs Vital signs: Vital Signs Temp 98.3 F 10/25/19 05:20 Pulse 89 10/25/19 08:00 Resp 14 10/25/19 08:00 BP 148/67 10/25/19 05:20 Pulse Ox 95 10/25/19 05:20 Intake & Output 10/24/19 10/25/19 10/25/19 18:59 06:59 18:59 Intake Total 0 Output Total 200 Balance 0 -200 Weight 48.1 kg 46.9 kg Intake: Tube Feeding 0 Output: Urine 200 Other: Voiding Method Toilet Toilet # Voids 3 3 # Bowel Movements 2 2 - Labs CBC & Chem 7: 10/25/19 07:57 10/25/19 07:57 Labs: Abnormal Lab Results - Last 24 Hours (Table) 10/25/19 10/25/19 Range/Units 07:57 07:57 WBC 2.3 L (3.8-10.6) k/uL RBC 2.55 L (3.80-5.40) m/uL Hgb 7.9 L (11.4-16.0) gm/dL Hct 23.1 L (34.0-46.0) % Plt Count 92 L (150-450) k/uL Lymphocytes # (Manual) 0.62 L (1.0-4.8) k/uL Metamyelocytes # (Man) 0.02 H (0) k/uL Myelocytes # (Manual) 0.05 H (0) k/uL Sodium 136 L (137-145) mmol/L BUN 40 H (7-17) mg/dL Creatinine 2.17 H (0.52-1.04) mg/dL Calcium 8.0 L (8.4-10.2) mg/dL Albumin 3.4 L (3.5-5.0) g/dL Assessment and Plan Plan: Assessment: 1. Acute kidney injury mostly prerenal secondary to diuresis and anemia. Renal function a little better. Creatinine 2.17 today. 2. Chronic kidney disease stage IV secondary to nephrosclerosis with baseline creatinine near 2-2.3. 3. AML status post chemotherapy. 4. Pancytopenia. Oncology following. Status post blood and platelet transfusion this admission. Iron replete. Stable. 5. Volume overload. Resolved. 6. Hypertension with chronic kidney disease. Better controlled. 7. Chronic kidney disease mineral bone disease maintained on calcitriol. Plan: Encouraged oral intake. Continue to hold diuretics. Continue to monitor renal function and urine output. Stable to be discharged home from nephrology standpoint. Follow up outpatient in 1-2 weeks.
--- NOTE | 2019-10-25 10:56 | P.DS ---
Providers Date of admission: 09/27/19 09:53 Expected date of discharge: 10/25/19 Attending physician: Litzy Chavez Consults: 09/27/19 12:53 Consult Physician Routine Consulting Provider: Milad Fernandes Consult Reason/Comments: medical management Do you want consulting provider notified?: Yes 09/27/19 17:50 Consult Physician Urgent Consulting Provider: Olga Lidia Ness Consult Reason/Comments: AML, fever Do you want consulting provider notified?: Yes 09/27/19 19:40 Consult Physician Stat Consulting Provider: Jeff Mendez Consult Reason/Comments: k+ 7.8; ? tumor lysis syndrome Do you want consulting provider notified?: Yes 10/01/19 04:40 Consult Physician Routine Consulting Provider: Maulik Murphy Consult Reason/Comments: Bradycardia Do you want consulting provider notified?: Yes, Notify in am 10/02/19 07:26 Consult Physician Stat Consulting Provider: Jaime Alcantara Consult Reason/Comments: pulm edema Do you want consulting provider notified?: Yes 10/15/19 13:02 Consult Physician Routine Consulting Provider: Devyn Nguyen Consult Reason/Comments: Dobhoff for malnutrition Do you want consulting provider notified?: Yes Primary care physician: Matthew Chaudhari - Discharge Diagnosis(es) (1) Acute myeloid leukemia Current Visit: Yes Status: Acute Priority: High (2) Pancytopenia Current Visit: Yes Status: Acute Priority: High (3) Tumor lysis syndrome following antineoplastic drug therapy Current Visit: Yes Status: Resolved Priority: High (4) Left upper extremity swelling Current Visit: Yes Status: Acute Priority: High (5) Hypertension Current Visit: Yes Status: Acute Priority: High (6) Acute renal failure superimposed on chronic kidney disease Current Visit: Yes Status: Acute Priority: High Hospital Course: Patient was admitted 28 days ago for treatment of acute myeloid leukemia. She received 1 week of parenteral therapy and then she was on oral therapy. She has required blood and platelet transfusions for anticipated jerome. Patient was tr eated for tumor lysis syndrome with resolution. Patient did experience moderate to severe neutropenic colitis which has resolved. Medications were adjusted during the time of moderate/severe gastrointestinal distress and nausea. This has resolved. Patient required feeding tube, this is been discontinued. She is now tolerating significant oral intake. Patient had a left upper extremity thrombus secondary to PICC line, this was removed, PICC line inserted in the right upper extremity, she is on anticoagulation without complaints of bleeding. Repeat Doppler of the left upper extremity shows no thrombus. Patient is now standby assist for ambulation. Patient is anxious to go home. Case was discussed with Internal Medicine. Assessment: Well-developed, adequately nourished, no acute distress, alert and oriented 4. Oral mucosa is free of thrush or lesions, respirations are even and unlabored, skin is warm and dry to the touch, patient is able to position her on body weight, she is able to stand with holding onto something, standby assist. Health Concerns: We reviewed activity, nutrition, use of incentive spirometry. Medications reviewed and reconciled with appropriate adjustments. Case discussed with Internal Medicine. Medications that were adjusted have been prescribed at the new adjusted doses. Doctor attests: I performed a history and physical examination of this patient, developed impression and plan of care. Discussed with dictator. I agree with dictators note, documented as a scribe. Procedures: PICC line left upper extremity removal and right upper extremity insertion Dobboff feeding tube insertion and removal Patient Condition at Discharge: Fair Plan - Discharge Summary Discharge Rx Participant: No New Discharge Prescriptions: New Apixaban [Eliquis Starter Pack (for VTE)] 0 mg PO DIRECTED 30 Days #1 pack hydrALAZINE HCL [Apresoline] 25 mg PO TID #90 tab bisacodyL [Dulcolax] 5 mg PO DAILY PRN #30 tablet.dr [place] Reason: Constipation amLODIPine [Norvasc] 10 mg PO DAILY #30 tab Levothyroxine Sodium [Synthroid] 100 mcg PO DAILY@0630 #30 tab Continue allopurinoL [Zyloprim] 100 mg PO DAILY Discontinued NIFEdipine XL [Procardia XL] 30 mg PO DAILY Losartan Potassium [Cozaar] 25 mg PO DAILY Levothyroxine Sodium [Synthroid] 75 mcg PO DAILY Voriconazole [Vfend] 200 mg PO Q12HR No Action calcitrioL [Rocaltrol] 0.25 mcg PO TU Folate 666 mcg PO DAILY Venetoclax [Venclexta] 200 mg PO DAILY Discharge Medication List Folate 666 mcg PO DAILY 09/08/19 [History] allopurinoL [Zyloprim] 100 mg PO DAILY 09/08/19 [History] calcitrioL [Rocaltrol] 0.25 mcg PO TU 09/08/19 [History] Venetoclax [Venclexta] 200 mg PO DAILY 09/27/19 [History] Apixaban [Eliquis Starter Pack (for VTE)] 0 mg PO DIRECTED 30 Days #1 pack 10/22/19 [Rx] Levothyroxine Sodium [Synthroid] 100 mcg PO DAILY@0630 #30 tab 10/25/19 [Rx] amLODIPine [Norvasc] 10 mg PO DAILY #30 tab 10/25/19 [Rx] bisacodyL [Dulcolax] 5 mg PO DAILY PRN #30 tablet. 10/25/19 [Rx] hydrALAZINE HCL [Apresoline] 25 mg PO TID #90 tab 10/25/19 [Rx] Follow up Appointment(s)/Referral(s): Winifred Hall MD [STAFF PHYSICIAN] - 1 Week ([facility], [NON-STAFF] - 1 Week Matthew Chaudhari NPC [Primary Care Provider] - 1 Week Patient Instructions/Handouts: Acute Myeloid Leukemia (DC), Chemo Induced Nausea and Vomiting (DC) Activity/Diet/Wound Care/Special Instructions: Activity: [] As tolerated, encouraged, use assistive device Diet: [] As tolerated Wound Care: [] PICC line dressing change weekly and when necessary. PICC line flush 3 times a week with 10 mL of normal saline Special Instructions: Repeat TSH in 4-6 weeks Walk around the house 3 times daily Palliative care and home health will also follow with you at home Discharge Disposition: HOME WITH HOME HEALTH SERVICES
--- NOTE | 2019-10-25 11:17 | P.PN ---
Subjective Progress Note Date: 10/25/19 (trevae charting seen at 0845) Principal diagnosis: chemo start Patient is a 74 -year-old female with a history of acute myelogenous leukemia, chronic kidney disease stage IV, anemia, hypertension, ITP and hypothyroidism who presented for induction chemotherapy. Patient seen and examined at bedside. Doing well, still feeling tired, daily BM, no SOB, no nausea, no chest pain, has been up and walking. Feeling ready to go home. Objective - Vital Signs Vital signs: Vital Signs Temp 98.3 F 10/25/19 05:20 Pulse 89 10/25/19 08:00 Resp 14 10/25/19 08:00 BP 148/67 10/25/19 05:20 Pulse Ox 95 10/25/19 05:20 Intake & Output 10/24/19 10/25/19 10/25/19 18:59 06:59 18:59 Intake Total 0 Output Total 200 Balance 0 -200 Weight 48.1 kg 46.9 kg Intake: Tube Feeding 0 Output: Urine 200 Other: Voiding Method Toilet Toilet # Voids 3 1 # Bowel Movements 2 1 - Exam General: Chronically ill appearing, no distress, appears at stated age Derm: warm, dry Head: atraumatic, normocephalic, symmetric Eyes: EOMI, no lid lag, anicteric sclera Mouth: no lip lesion, mucus membranes moist Cardiovascular: S1S2 reg, no murmur, positive posterior tibial pulse bilateral, Lungs: Decreased bs bilateral, no rhonchi, no rales , no accessory muscle use Abdominal: soft, nontender to palpation, no guarding, no appreciable organomegaly Ext: no gross muscle atrophy, no edema, no contractures Neuro: CN II-XI grossly intact, no focal neuro deficits Psych: Alert, oriented, flat affect - Labs CBC & Chem 7: 10/25/19 07:57 10/25/19 07:57 Labs: Abnormal Lab Results - Last 24 Hours (Table) 10/25/19 10/25/19 Range/Units 07:57 07:57 WBC 2.3 L (3.8-10.6) k/uL RBC 2.55 L (3.80-5.40) m/uL Hgb 7.9 L (11.4-16.0) gm/dL Hct 23.1 L (34.0-46.0) % Plt Count 92 L (150-450) k/uL Lymphocytes # (Manual) 0.62 L (1.0-4.8) k/uL Metamyelocytes # (Man) 0.02 H (0) k/uL Myelocytes # (Manual) 0.05 H (0) k/uL Sodium 136 L (137-145) mmol/L BUN 40 H (7-17) mg/dL Creatinine 2.17 H (0.52-1.04) mg/dL Calcium 8.0 L (8.4-10.2) mg/dL Albumin 3.4 L (3.5-5.0) g/dL Assessment and Plan Assessment: 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 - Pancytopenia, Status post 7 units packed red blood cells and 10 units of platelets - Follow CBC - Management per oncology - Palliative care on discharge PICC associated DVT -Status post PICC being changed to alternate site -Eliquis on discharge, RX sent Acute kidney injury on chronic kidney disease stage IV -Nephro recommendations outpatient follow-up added to discharge -Avoid additional nephrotoxic agents Bilateral pleural effusions - chronic, continue to monitor Hypertension, controlled -Continue with Norvasc, hydralazine- new RX sent Hypothyroidism -TSH still elevated and now more so, will increase levothyroxine -Recheck TSH in 4 weeks Resolved: Tumor lysis syndrome Hyperkalemia hypokalemia hypocalcemia hypomagnesemia hyponatremia bradycardia with left bundle branch block acute hypoxic respiratory failure Constipation Intractable nausea and vomiting resulting in severe protein calorie malnutrition
== END 2019-10-25 16:14 | disposition home health service (06) | DRG 837 ==
LOC: 5NMEDONC 09:53
PROVIDERS: ADMIT Internal Medicine Hematology & Oncology; ATTEND Internal Medicine Hematology & Oncology
PROC: XW0DXR5 Introduction of Venetoclax Antineoplastic into Mouth and Pharynx, External Approach, New Technology Group 5 (ICD-10-PCS; principal; 2019-09-27)
PROC: 30233N1 Transfusion of Nonautologous Red Blood Cells into Peripheral Vein, Percutaneous Approach (ICD-10-PCS; 2019-09-30)
PROC: 30233R1 Transfusion of Nonautologous Platelets into Peripheral Vein, Percutaneous Approach (ICD-10-PCS; 2019-09-30)
PROC: 02HV33Z Insertion of Infusion Device into Superior Vena Cava, Percutaneous Approach (ICD-10-PCS; 2019-10-04)
PROC: 0DH67UZ Insertion of Feeding Device into Stomach, Via Natural or Artificial Opening (ICD-10-PCS; 2019-10-04)
PROC: 3E0G76Z Introduction of Nutritional Substance into Upper GI, Via Natural or Artificial Opening (ICD-10-PCS; 2019-10-04)
PROC: 07DR3ZX Extraction of Iliac Bone Marrow, Percutaneous Approach, Diagnostic (ICD-10-PCS; 2019-10-14)
DX: Z51.11 Encounter for antineoplastic chemotherapy (principal); E88.3 Tumor lysis syndrome; C92.00 Acute myeloblastic leukemia, not having achieved remission; E43 Unspecified severe protein-calorie malnutrition; J96.01 Acute respiratory failure with hypoxia; D61.810 Antineoplastic chemotherapy induced pancytopenia; J18.9 Pneumonia, unspecified organism; N18.4 Chronic kidney disease, stage 4 (severe); N17.9 Acute kidney failure, unspecified; E87.2 Acidosis; E44.1 Mild protein-calorie malnutrition; E87.1 Hypo-osmolality and hyponatremia; I47.2 Ventricular tachycardia; T82.868A Thrombosis due to vascular prosthetic devices, implants and grafts, initial encounter; J98.11 Atelectasis; I82.622 Acute embolism and thrombosis of deep veins of left upper extremity; K56.7 Ileus, unspecified; J90 Pleural effusion, not elsewhere classified; R18.8 Other ascites; E83.51 Hypocalcemia; E83.42 Hypomagnesemia; Y84.8 Other medical procedures as the cause of abnormal reaction of the patient, or of later complication, without mention of misadventure at the time of the procedure; E86.1 Hypovolemia; E87.6 Hypokalemia; Z51.5 Encounter for palliative care; E87.5 Hyperkalemia; E03.9 Hypothyroidism, unspecified; I12.9 Hypertensive chronic kidney disease with stage 1 through stage 4 chronic kidney disease, or unspecified chronic kidney disease; E86.0 Dehydration; N25.0 Renal osteodystrophy; D70.1 Agranulocytosis secondary to cancer chemotherapy; E83.39 Other disorders of phosphorus metabolism; D69.59 Other secondary thrombocytopenia; M10.9 Gout, unspecified; I44.7 Left bundle-branch block, unspecified; G47.33 Obstructive sleep apnea (adult) (pediatric); B00.9 Herpesviral infection, unspecified; T50.2X5A Adverse effect of carbonic-anhydrase inhibitors, benzothiadiazides and other diuretics, initial encounter; T45.1X5A Adverse effect of antineoplastic and immunosuppressive drugs, initial encounter; R50.81 Fever presenting with conditions classified elsewhere; K12.31 Oral mucositis (ulcerative) due to antineoplastic therapy; K59.00 Constipation, unspecified; I35.0 Nonrheumatic aortic (valve) stenosis; Z60.2 Problems related to living alone; R53.81 Other malaise; Z86.2 Personal history of diseases of the blood and blood-forming organs and certain disorders involving the immune mechanism; Z91.19 Patient's noncompliance with other medical treatment and regimen; Z90.710 Acquired absence of both cervix and uterus; Z90.49 Acquired absence of other specified parts of digestive tract; Z80.0 Family history of malignant neoplasm of digestive organs; Z82.49 Family history of ischemic heart disease and other diseases of the circulatory system; Z79.899 Other long term (current) drug therapy; Z79.890 Hormone replacement therapy; Z79.2 Long term (current) use of antibiotics; Z79.01 Long term (current) use of anticoagulants; Z68.25 Body mass index [BMI] 25.0-25.9, adult
CPT/HCPCS: 36573; 38222; 71045; 74018; 76700; 76857; 80048; 80053; 80202; 81001; 82607; 82728; 82746; 83010; 83540; 83550; 83615; 83735; 83880; 83921; 84100; 84132; 84145; 84439; 84443; 84550; 85025; 85027; 85045; 85610; 85730; 86850; 86900; 86901; 86920; 87040; 93005; 93306; 94760

== ENCOUNTER 2019-11-17 14:32 | Inpatient (IN) | payer MEDICARE ==
[2019-11-17] MEDS ORDERED: NALOXONE 0.4 MG/ML 1 ML VIAL IV PRN (15:54)
[2019-11-17] MEDS ORDERED: HYDROmorphone 0.5 MG/0.5 ML SYRINGE IVP PRN (15:57)
[2019-11-17] MEDS ORDERED: ALPRAZolam 0.25 MG TAB PO PRN (15:57)
[2019-11-17] MEDS ORDERED: TEMAZEPAM 15 MG CAP PO PRN (15:57)
[2019-11-17] MEDS ORDERED: HYDROcodone/APAP 5-325MG 1 EACH TAB PO PRN (15:57)
[2019-11-17] MEDS ORDERED: SODIUM CHLORIDE 0.9% 1,000 ML IV SCH (16:00)
[2019-11-17 17:41] LABS: INR 1.1 (<1.2); Prothrombin Time 10.9 sec (9.0-12.0)
[2019-11-17 17:42] LABS: Basophils % (A) 1 %; Eosinophils % (A) 0 %; HCT 20.8 % (34.0-46.0); Lymphocytes # (A) 0.2 k/uL (1.0-4.8); Lymphocytes % (A) 30 %; MCH 29.9 pg (25.0-35.0); MCHC 32.9 g/dL (31.0-37.0); MCV 90.8 fL (80.0-100.0); Mean Platelet Volume 8.4; Monocytes # (A) 0.1 k/uL (0-1.0); Monocytes % (A) 8 %; Neutrophils % (A) 58 %; RBC 2.28 m/uL (3.80-5.40); RDW 15.7 % (11.5-15.5)
[2019-11-17 17:43] LABS: Neutrophils # (A) 0.4 k/uL (1.3-7.7)
[2019-11-17 17:44] LABS: HGB 6.8 gm/dL (11.4-16.0); WBC 0.6 k/uL (3.8-10.6)
[2019-11-17 18:06] LABS: Albumin 4.6 g/dL (3.5-5.0); Calcium 9.3 mg/dL (8.4-10.2); Magnesium 1.7 mg/dL (1.6-2.3); Potassium 4.9 mmol/L (3.5-5.1); Total Bilirubin 0.9 mg/dL (0.2-1.3); Total Protein 8.4 g/dL (6.3-8.2)
[2019-11-17 18:16] LABS: Platelet Count 2 k/uL (150-450)
[2019-11-17] MEDS ORDERED: bisacodyL 5 MG TABLET.DR PO PRN (18:34)
--- NOTE | 2019-11-17 18:59 | XR ---
EXAMINATION TYPE: XR chest 1V portable DATE OF EXAM: 11/17/2019 COMPARISON: 10/17/2019 HISTORY: Short of breath TECHNIQUE: Single view FINDINGS: There is no heart failure nor confluent pneumonic infiltrate. There are chest leads. Thorac ic aorta is atheromatous. There is some coarse interstitial density at the lung bases. There is right central venous catheter with tip in the superior vena cava. IMPRESSION: Mild interstitial basilar pulmonary infiltrates. Chest is much improved compared to previ ous exam. There is significant clearing of the pleural fluid and atelectasis and infiltrate at the mariana ng bases.
[2019-11-17] MEDS: PANTOPRAZOLE 40 MG/10 ML VIAL IVP SCH (19:46)
[2019-11-17] MEDS: hydrALAZINE HCL 25 MG TAB PO SCH (22:16)
--- NOTE | 2019-11-17 23:28 | HP ---
HISTORY AND PHYSICAL CHIEF COMPLAINTS: Severe thrombocytopenia as well as epistaxis. HISTORY OF PRESENT ILLNESS: This 74-year-old woman with a past medical history of acute myeloid leukemia, hypertension, history of renal disease, stage 4 kidney disease, being followed by Dr. Umesh Ramos in the outpatient setting, was diagnosed with AML recently with anemia and blast. The patient was receiving inpatient chemotherapy and subsequently currently on outpatient chemotherapy by Dr. Chavez the patient were noted to have epistaxis and platelets were found to be 2. The patient was admitted for further evaluation and treatment. White count is 0.6, hemoglobin 6.8, indicating severe pancytopenia. Also sodium is 134, creatinine is 2.51. The baseline creatinine was around 2 to 3. There is no history of any fever, rigor or chills. No history of headache, loss of consciousness, seizures. PAST MEDICAL HISTORY: History of AML, history of hypertension, history of kidney disease, history of appendectomy, hysterectomy. HOME MEDICATIONS: Medications prior to admission include: 1. Apresoline 25 mg p.o. b.i.d. 2. Rocaltrol 0.5 mg Friday. 3. Dulcolax 5 mg daily p.r.n. 4. Norvasc 10 mg daily. 5. Zyloprim 100 mg p.o. daily. 6. Venetoclax 200 mg p.o. daily. 7. Synthroid 100 mcg p.o. daily. 8. Folate 666 p.o. daily. 9. Eliquis taper b.i.d. ALLERGIES: NONE. FAMILY HISTORY: History of esophageal cancer in the family. SOCIAL HISTORY: No history of smoking. No history of alcohol intake. REVIEW OF SYSTEMS: ENT: As mentioned earlier. CARDIOVASCULAR SYSTEM: No angina, palpitations. RESPIRATORY SYSTEM: No cough, hemoptysis. GI: As mentioned earlier. : No dysuria or retention. NERVOUS SYSTEM: No numbness, weakness. ALLERGY/IMMUNOLOGY: No asthma, hayfever. MUSCULOSKELETAL: As mentioned earlier. HEMATOLOGY/ONCOLOGY: As mentioned earlier. ENDOCRINE: No history of diabetes, hypothyroidism. CONSTITUTIONAL: As mentioned earlier. DERMATOLOGY: Negative. RHEUMATOLOGY: Negative. PSYCHIATRY: As mentioned earlier. PHYSICAL EXAMINATION: Patient alert and oriented x3. The pulse is 80, blood pressure ntd, respiration normal. HEENT: Conjunctivae pale. Oral mucosa moist. NECK: No jugular venous distention. No carotid bruit. No lymph node enlargement. CARDIOVASCULAR SYSTEM: S1, S2 muffled. No S3. No S4. Ejection systolic murmur present. RESPIRATORY SYSTEM: Breath sounds diminished at the bases. No rhonchi. No crackles. ABDOMEN: Soft, non-tender. No mass palpable. LEGS: Minimal leg edema and bilateral petechial hemorrhage also present around the perifollicular NERVOUS SYSTEM: Higher functions as mentioned earlier. Moves all 4 limbs. No focal motor or sensory deficit. LYMPHATICS: No lymph node palpable in neck, axillae or groin. JOINTS: No active deforming arthropathy. SKIN: As mentioned earlier. LABS: Labs at this time show WBC 0.6, hemoglobin 6.8, and platelets are 2. Sodium 134, potassium 4.9. Creatinine is 2.1. ASSESSMENT: 1. Epistaxis secondary from severe thrombocytopenia secondary to chemotherapy. 2. Severe pancytopenia secondary to chemotherapy. 3. Acute myeloid leukemia, on chemotherapy. 4. Hyponatremia. 5. Decreased carbon dioxide. 6. Chronic kidney disease, stage 4. 7. History of hypertension. 8. History of renal disease. 9. History of appendectomy. 10.History of hysterectomy. 11.FULL CODE. RECOMMENDATIONS AND DISCUSSION: In this 74-year-old woman who presented with multiple medical issues, we will monitor the patient closely, continue the current medications, continue with symptomatic treatment. I recommend transfusion and also platelet transfusion. Closely follow with Hematology/Oncology. Resume the home medications. Repeat labs. Prognosis guarded because of multiple complex medical problems. Further recommendations to follow. A copy of this dictation is being forwarded to Dr. Ramos, who is the primary physician. MMODL / IJN: [id number] / [facility]
[2019-11-18] MEDS ORDERED: LEVOTHYROXINE 100 MCG TAB PO SCH (06:30)
[2019-11-18 06:42] LABS: HCT 23.2 % (34.0-46.0); HGB 7.7 gm/dL (11.4-16.0); MCH 29.6 pg (25.0-35.0); MCHC 33.3 g/dL (31.0-37.0); MCV 88.8 fL (80.0-100.0); RBC 2.62 m/uL (3.80-5.40); RDW 15.1 % (11.5-15.5)
[2019-11-18 06:47] LABS: WBC 0.4 k/uL (3.8-10.6)
[2019-11-18 06:53] LABS: Calcium 8.8 mg/dL (8.4-10.2); Potassium 4.7 mmol/L (3.5-5.1)
[2019-11-18 07:07] LABS: Platelet Count 10 k/uL (150-450)
[2019-11-18] MEDS ORDERED: amLODIPine 10 MG TAB PO SCH (09:00)
[2019-11-18] MEDS ORDERED: allopurinoL 100 MG TAB PO SCH (09:00)
[2019-11-18] MEDS ORDERED: FOLIC ACID 1 MG TAB PO SCH (09:00)
[2019-11-18 10:14] VITALS: RESP 16
[2019-11-18] MEDS: PANTOPRAZOLE 40 MG/10 ML VIAL IVP SCH (10:18)
[2019-11-18] MEDS: hydrALAZINE HCL 25 MG TAB PO SCH (10:18)
[2019-11-18 11:20] LABS: Appearance,Urine Clear (Clear); Bilirubin,Urine Negative (Negative); Blood,Urine Negative (Negative); Color,Urine Light Yellow; Glucose,Urine (UA) Negative (Negative); Ketones,Urine Negative (Negative); Leukocyte Esterase,Urine Negative (Negative); Nitrite,Urine Negative (Negative); PH, Urine 5.5 (5.0-8.0); Protein,Urine Trace (Negative); Specific Gravity,Urine 1.008 (1.001-1.035); Urobilinogen,Urine <2.0 mg/dL (<2.0)
[2019-11-18 14:58] VITALS: BP 117/55; PULSE 90; TEMP 98.6
--- NOTE | 2019-11-18 16:34 | P.CONS ---
History of Present Illness - Reason for Consult Consult date: 11/18/19 AML Requesting physician: Nelson Madsen - Chief Complaint Epistaxis - History of Present Illness Pt being seen today as a follow up for ITP,has been on observation only. 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 On 09/26/2019,she was admitted to the hospital for the first cycle of dacogen/venetoclax,her course was complicated by TLS,which resolved. She had a repeat bone marrow biopsy on 10/12/2019 which revealed residual 7-8% blasts She feels tired,weak,no fever,night sweats,her ANC and platelets counts improved,she remained anemic. She was last seen on 11/17/19-patient is here status post second 5 day cycle of Dacogen, continues on ventoclax 100 mg daily. She presents with complaints of bloody nose, platlets 2K on arriival, today 10K. Review of Systems All systems: negative (hpi) Past Medical History Past Medical History: Blood Disorder, Cancer, Hypertension, Renal Disease Additional Past Medical History / Comment(s): Anemia, Stage 4 kidney disease, AML- started inpt. chemo 11/17/19- History of Any Multi-Drug Resistant Organisms: None Reported Past Surgical History: Appendectomy, Hysterectomy Past Anesthesia/Blood Transfusion Reactions: No Reported Reaction Past Psychological History: No Psychological Hx Reported Smoking Status: Never smoker Past Alcohol Use History: None Reported Past Drug Use History: None Reported - Past Family History Father Family Medical History: Cancer Additional Family Medical History / Comment(s): esophageal cancer Mother Family Medical History: Hypertension Medications and Allergies Home Medications Medication Instructions Recorded Confirmed Type Folate 666 mcg PO DAILY 09/08/19 11/17/19 History allopurinoL [Zyloprim] 100 mg PO DAILY 09/08/19 11/17/19 History calcitrioL [Rocaltrol] 0.25 mcg PO TU 09/08/19 11/17/19 History Venetoclax [Venclexta] 200 mg PO DAILY 09/27/19 11/17/19 History Levothyroxine Sodium [Synthroid] 100 mcg PO DAILY@0630 #30 tab 10/25/19 11/17/19 Rx amLODIPine [Norvasc] 10 mg PO DAILY #30 tab 10/25/19 11/17/19 Rx bisacodyL [Dulcolax] 5 mg PO DAILY PRN #30 tablet. 10/25/19 11/17/19 Rx hydrALAZINE HCL [Apresoline] 25 mg PO TID tab 11/18/19 Rx hydrALAZINE HCL [Apresoline] 25 mg PO TID 30 Days #90 tab 11/18/19 Rx Allergies Allergy/AdvReac Type Severity Reaction Status Date / Time No Known Allergies Allergy Verified 11/17/19 18:25 Physical Exam Vitals: Vital Signs Temp Pulse Pulse Resp BP BP Pulse Ox 11/18/19 11:10 98.6 F 90 16 117/55 98 11/18/19 10:00 98.5 F 85 85 16 131/61 131/61 96 11/18/19 07:10 98.1 F 77 18 123/56 97 11/18/19 06:40 98.2 F 79 20 116/56 11/18/19 06:30 98.2 F 84 18 121/58 98 11/18/19 06:10 98.3 F 86 16 119/58 97 11/18/19 05:38 98.4 F 83 18 115/56 97 11/18/19 05:37 98.4 F 83 18 115/56 11/18/19 05:28 98.2 F 82 18 108/52 97 11/18/19 05:03 98.6 F 85 20 109/53 11/18/19 04:00 98.6 F 94 20 107/53 96 11/18/19 02:25 98.1 F 81 20 108/51 11/18/19 01:55 98.9 F 81 20 105/52 11/18/19 01:45 98.1 F 88 18 98/50 97 11/18/19 00:00 98.1 F 88 18 98/50 97 11/17/19 20:00 98.2 F 83 18 106/53 98 Intake and Output 11/18/19 11/18/19 11/18/19 06:59 14:59 22:59 Intake Total 1127 250 Output Total 900 Balance 1127 -650 Intake: Blood Product 1127 250 Platelet Irr Pheresis 317 Acda1 Unit [id number] Rc Irr As1 Unit 310 [id number] Rc Irr Cpda1 Unit 0 250 [id number] Output: Urine 900 Other: Voiding Method Toilet Toilet Weight 43.1 kg Constitutional General appearance: Present: no acute distress - EENT Eyes: Present: EOMI ENT: Present: hearing grossly normal, normal oropharynx - Respiratory Respiratory: bilateral: diminished (At bases) - Cardiovascular Rhythm: regular Heart sounds: normal: S1, S2 - Gastrointestinal General gastrointestinal: Present: normal bowel sounds, soft - Integumentary Integumentary: Present: normal - Neurologic Neurologic: Present: CNII-XII intact - Musculoskeletal Musculoskeletal: Present: generalized weakness (Improved), strength equal bilaterally - Psychiatric Psychiatric: Present: A&O x's 3, appropriate affect Results CBC & Chem 7: 11/18/19 06:16 11/18/19 06:16 Labs: Abnormal Lab Results - Last 24 Hours (Table) 11/17/19 11/17/19 11/17/19 Range/Units 17:15 17:15 17:15 WBC 0.6 L* (3.8-10.6) k/uL RBC 2.28 L (3.80-5.40) m/uL Hgb 6.8 L* (11.4-16.0) gm/dL Hct 20.8 L (34.0-46.0) % RDW 15.7 H (11.5-15.5) % Plt Count 2 L* D (150-450) k/uL Neutrophils # 0.4 L* (1.3-7.7) k/uL Lymphocytes # 0.2 L (1.0-4.8) k/uL Sodium 134 L (137-145) mmol/L Chloride (98-107) mmol/L Carbon Dioxide 15 L (22-30) mmol/L BUN 53 H (7-17) mg/dL Creatinine 2.51 H (0.52-1.04) mg/dL Total Protein 8.4 H (6.3-8.2) g/dL Urine Protein (Negative) Crossmatch See Detail 11/18/19 11/18/19 11/18/19 Range/Units 06:16 06:16 11:00 WBC 0.4 L* (3.8-10.6) k/uL RBC 2.62 L (3.80-5.40) m/uL Hgb 7.7 L (11.4-16.0) gm/dL Hct 23.2 L (34.0-46.0) % RDW (11.5-15.5) % Plt Count 10 L* D (150-450) k/uL Neutrophils # (1.3-7.7) k/uL Lymphocytes # (1.0-4.8) k/uL Sodium 136 L (137-145) mmol/L Chloride 109 H (98-107) mmol/L Carbon Dioxide 18 L (22-30) mmol/L BUN 47 H (7-17) mg/dL Creatinine 2.06 H (0.52-1.04) mg/dL Total Protein (6.3-8.2) g/dL Urine Protein Trace H (Negative) Crossmatch Assessment and Plan Plan: Assessment and Plan 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 - Tumor lysis resolved - Current treatment with Dacogen Left upper ex picc associated DVT - No AC therapy with Thrombocytopenia Pancytopenia - Secondary to AML and Chemo - improved - Continue to monitor daily - Supportive transfusions PRN Plan: I anticipate patient will need platelts again by tomorrow or over weekend and with recent bleeding and recent refractory to platelets would recommend am draw and transfuse if needed before discharge. Physician Attest: I have completed the above history and physical and agree with assessment and plan, dictated as a scribe.
[2019-11-19] MEDS ORDERED: PANTOPRAZOLE 40 MG TABLET PO SCH (07:30)
--- NOTE | 2019-11-19 15:30 | P.DS ---
Providers Date of admission: 11/17/19 16:33 Expected date of discharge: 11/18/19 Attending physician: Maria G Desai Consults: 11/17/19 15:57 Consult Physician Routine Consulting Provider: Keagan Escobar Consult Reason/Comments: malignancy Do you want consulting provider notified?: Yes Primary care physician: Stated None Hospital Course: Final diagnosis Epistaxis secondary from severe thrombocytopenia secondary to chemotherapy Severe pancytopenia secondary to chemotherapy Acute myeloid leukemia, currently on chemotherapy Hyponatremia Decreased carbon dioxide Chronic kidney disease stage IV history of hypertension history of renal disease history of appendectomy history of hysterectomy Full code Discharge disposition Patient is being discharged in a stable condition with guarded prognosis to home. Patient will follow-up with Matthew Chaudhari NP in the outpatient setting upon discharge. Patient also instructed to follow-up with oncology Dr. Merrill. Patient is to continue to hold anticoagulants and aspirin until follow-up. Total time taken is greater than 35 minutes. History of present illness This is a 74-year-old female who was recently admitted with anemia and low platelets and was being closely monitored. Patient was recently diagnosed with AML and is being closely monitored with hematology oncology in the outpatient setting. Patient was admitted for a hemoglobin of less than 7 with a platelet count of 2 and was transfused 2 units of PRBCs along with a unit of platelets. Hemoglobin today is 7.7 and platelet count is 10. Prescriptions provided for repeat CBC and BMP to monitor kidney functions along with hemoglobin and platelets. Patient would like to go home today. Patient was seen and evaluated by oncology while hospitalized recommending close outpatient follow-up with Dr. Chavez. Currently no reports of chest pain, shortness of breath, or palpitations. Patient is afebrile. No reports of nausea or vomiting and patient is tolerating diet. Patient will be going home today. On exam vital signs are stable. Temp is 98.6F, pulse is 90, respirations are 16, blood pressure is 117/55, oxygen saturation is 98 % on room air. Cardio S1, S2 are muffled. Respiratory system shows diminished breath sounds at the bases with no wheezing or rhonchi noted. Abdomen is soft and nontender. Nervous system shows no focal deficits. Please refer to medication reconciliation sheet for a list of medications. Patient Condition at Discharge: Stable Plan - Discharge Summary New Discharge Prescriptions: Continue calcitrioL [Rocaltrol] 0.25 mcg PO TU allopurinoL [Zyloprim] 100 mg PO DAILY Folate 666 mcg PO DAILY Venetoclax [Venclexta] 200 mg PO DAILY amLODIPine [Norvasc] 10 mg PO DAILY #30 tab Levothyroxine Sodium [Synthroid] 100 mcg PO DAILY@0630 #30 tab Discontinued hydrALAZINE HCL [Apresoline] 25 mg PO BID Apixaban [Eliquis Starter Pack (for VTE)] See Taper PO BID No Action Acetaminophen Tab [Tylenol] 325 - 650 mg PO Q4H PRN PRN Reason: Pain hydrALAZINE HCL [Apresoline] 25 mg PO BID Discharge Medication List Folate 666 mcg PO DAILY 09/08/19 [History] allopurinoL [Zyloprim] 100 mg PO DAILY 09/08/19 [History] calcitrioL [Rocaltrol] 0.25 mcg PO TU 09/08/19 [History] Venetoclax [Venclexta] 200 mg PO DAILY 09/27/19 [History] Levothyroxine Sodium [Synthroid] 100 mcg PO DAILY@0630 #30 tab 10/25/19 [Rx] amLODIPine [Norvasc] 10 mg PO DAILY #30 tab 10/25/19 [Rx] Acetaminophen Tab [Tylenol] 325 - 650 mg PO Q4H PRN 11/19/19 [History] hydrALAZINE HCL [Apresoline] 25 mg PO BID 11/19/19 [History] Follow up Appointment(s)/Referral(s): Matthew Chaudhari NPC [REFERRING] - 11/22/19 9:30 am Litzy Chavez MD [STAFF PHYSICIAN] - 12/08/19 3:45 pm (11/22 1145- Bone marrow biopsy 11/28- Chemo ) Ambulatory/Diagnostic Orders: Basic Metabolic Panel [LAB.AMB] Time Frame: 2 Days, Location: None Selected Complete Blood Count w/diff [LAB.AMB] Time Frame: 2 Days, Location: None Selected Patient Instructions/Handouts: Thrombocytopenia (DC), Pancytopenia (DC) Activity/Diet/Wound Care/Special Instructions: Activity Limited until follow-up Follow-up with Dr. Merrill this week Continue current diet Follow-up with primary care provider upon discharge Repeat labs to monitor CBC Hold anticoagulants and aspirin until follow-up Discharge Disposition: HOME SELF-CARE
== END 2019-11-18 16:36 | disposition home or self-care (01) | DRG 813 ==
LOC: 5NMEDONC 16:33 → 3SCARD 16:44
PROVIDERS: ADMIT Internal Medicine; ATTEND Internal Medicine
PROC: 30233R1 Transfusion of Nonautologous Platelets into Peripheral Vein, Percutaneous Approach (ICD-10-PCS; principal; 2019-11-18)
PROC: 30233N1 Transfusion of Nonautologous Red Blood Cells into Peripheral Vein, Percutaneous Approach (ICD-10-PCS; 2019-11-18)
DX: D69.59 Other secondary thrombocytopenia (principal); C92.00 Acute myeloblastic leukemia, not having achieved remission; E87.1 Hypo-osmolality and hyponatremia; T82.868A Thrombosis due to vascular prosthetic devices, implants and grafts, initial encounter; N18.4 Chronic kidney disease, stage 4 (severe); T45.1X5A Adverse effect of antineoplastic and immunosuppressive drugs, initial encounter; I12.9 Hypertensive chronic kidney disease with stage 1 through stage 4 chronic kidney disease, or unspecified chronic kidney disease; R04.0 Epistaxis; Z20.828 Contact with and (suspected) exposure to other viral communicable diseases; Z79.890 Hormone replacement therapy; Z79.899 Other long term (current) drug therapy; Z79.01 Long term (current) use of anticoagulants; Z90.710 Acquired absence of both cervix and uterus; Z90.49 Acquired absence of other specified parts of digestive tract; Z80.0 Family history of malignant neoplasm of digestive organs; Z82.49 Family history of ischemic heart disease and other diseases of the circulatory system; Y84.8 Other medical procedures as the cause of abnormal reaction of the patient, or of later complication, without mention of misadventure at the time of the procedure
CPT/HCPCS: 71045; 80048; 80053; 81003; 83735; 85025; 85610; 86850; 86900; 86901; 86920

== ENCOUNTER 2019-11-23 10:39 | Day surgery (SDC) | payer MEDICARE ==
[2019-11-19 10:54] VITALS: BMI 20.5
[~2019-11-23 10:39] MED LIST: LACTATED RINGERS 1,000 ML IV SCH; LIDOCAINE 1% (10MG/ML) FOR IV START INTRADERMA PRN
[2019-11-23 11:29] VITALS: TEMP 98.6
[2019-11-23] MEDS ORDERED: PROPOFOL 10 MG/ML 20 ML VIAL IV ONE (12:05)
[2019-11-23] MEDS ORDERED: LIDOCAINE 1% INJ 10MG/ML (20 ML MDV) ONE (12:05)
[2019-11-23 12:59] LABS: HCT 31.7 % (34.0-46.0); HGB 10.3 gm/dL (11.4-16.0); MCH 29.6 pg (25.0-35.0); MCHC 32.7 g/dL (31.0-37.0); MCV 90.8 fL (80.0-100.0); RBC 3.49 m/uL (3.80-5.40); RDW 15.6 % (11.5-15.5); Reticulocyte % 1.4 % (0.5-2.0)
[2019-11-23 13:01] LABS: Platelet Count 24 k/uL (150-450); WBC 0.2 k/uL (3.8-10.6)
[2019-11-23 13:17] VITALS: BP 134/67; PULSE 80; RESP 16
[2019-11-23 13:46] LABS: Large Platelets Present; Poikilocytosis (M) Present
--- NOTE | 2019-11-23 15:06 | PCN ---
PROCEDURE NOTE PREOPERATIVE DIAGNOSES: AML. POSTOPERATIVE DIAGNOSES: AML. PROCEDURE: Bone marrow aspirate and biopsy. SITE: Right iliac crest. PROCEDURE DESCRIPTION: Utilizing sterile technique, the skin overlying the right iliac crest was prepared with Betadine and alcohol. After adequate sterile draping, local anesthesia and 1% lidocaine and systemic sedation size 11 4 inch Jamshidi needle was utilized to access the periosteum with ease. A total of 12 mL of aspirate as well as 1 cm cross bone biopsies were obtained. The patient tolerated the procedure very well. There was no immediate procedure-related complication. TOTAL BLOOD LOSS: Less than 1 mL. RESULTS: Pending. MMODL / IJN: [id number] /
== END 2019-11-23 13:15 | disposition home or self-care (01) ==
LOC: OR 10:39
PROVIDERS: ATTEND Internal Medicine Hematology & Oncology
DX: C92.00 Acute myeloblastic leukemia, not having achieved remission (principal); I12.9 Hypertensive chronic kidney disease with stage 1 through stage 4 chronic kidney disease, or unspecified chronic kidney disease; N18.9 Chronic kidney disease, unspecified; E88.3 Tumor lysis syndrome; E07.9 Disorder of thyroid, unspecified; Z79.890 Hormone replacement therapy; Z79.899 Other long term (current) drug therapy; Z92.21 Personal history of antineoplastic chemotherapy
CPT/HCPCS: 85025; 85045; 38222; J2001; J2704

== ENCOUNTER 2019-11-24 23:40 | Inpatient (IN) | payer MEDICARE ==
[2019-11-25] MEDS ORDERED: PIPERACILLIN-TAZOBACTAM 3.375 GM in SODIUM CHLORIDE 0.9% 100 ML IVPB STA (00:19)
[2019-11-25] MEDS ORDERED: ACETAMINOPHEN TAB 500 MG TAB PO STA (00:19)
--- NOTE | 2019-11-25 00:24 | ED ---
Weakness HPI - General Chief complaint: Weakness Stated complaint: weakness Time Seen by Provider: 11/24/19 23:45 Source: patient, EMS, RN notes reviewed, old records reviewed Mode of arrival: EMS - History of Present Illness Initial comments: This is a 74-year-old female with history of AML exception in transfer. On arrival in her facility patient is fever sent for pancytopenia. Patient herself has no specific current complaints. Has been feeling weak no nausea vomiting no chest pain or shortness breath no cough no congestion no diarrhea MD Complaint: generalized weakness -: days(s) Location: generalized Severity: moderate Severity scale (1-10): 5 Consistency: constant Improves with: none Worsens with: none Context: new medication, recent illness Associated Symptoms: confusion, fever/chills, loss of appetite - Related Data Home Medications Medication Instructions Recorded Confirmed Folate 666 mcg PO DAILY 09/08/19 11/23/19 allopurinoL [Zyloprim] 100 mg PO DAILY 09/08/19 11/23/19 calcitrioL [Rocaltrol] 0.25 mcg PO TU 09/08/19 11/23/19 Venetoclax [Venclexta] 200 mg PO DAILY 09/27/19 11/23/19 Acetaminophen Tab [Tylenol] 325 - 650 mg PO Q4H PRN 11/19/19 11/23/19 hydrALAZINE HCL [Apresoline] 25 mg PO BID 11/19/19 11/23/19 Previous Rx's Medication Instructions Recorded Levothyroxine Sodium [Synthroid] 100 mcg PO DAILY@0630 #30 tab 10/25/19 amLODIPine [Norvasc] 10 mg PO DAILY #30 tab 10/25/19 Allergies Allergy/AdvReac Type Severity Reaction Status Date / Time No Known Allergies Allergy Verified 11/23/19 11:22 Review of Systems ROS Statement: Those systems with pertinent positive or pertinent negative responses have been documented in the HPI. ROS Other: All systems not noted in ROS Statement are negative. Past Medical History Past Medical History: Blood Disorder, Cancer, Hypertension, Renal Disease Additional Past Medical History / Comment(s): Anemia, Stage 4 kidney disease, AML- started inpt. chemo 11/17/19- History of Any Multi-Drug Resistant Organisms: None Reported Past Surgical History: Appendectomy, Hysterectomy Past Anesthesia/Blood Transfusion Reactions: No Reported Reaction Past Psychological History: Depression Smoking Status: Never smoker Past Alcohol Use History: None Reported Past Drug Use History: None Reported - Past Family History Father Family Medical History: Cancer Additional Family Medical History / Comment(s): esophageal cancer Mother Family Medical History: Hypertension General Exam General appearance: alert, in no apparent distress, lethargic Head exam: Present: atraumatic, normocephalic, normal inspection Eye exam: Present: normal appearance, PERRL, EOMI. Absent: scleral icterus, conjunctival injection, periorbital swelling ENT exam: Present: normal exam, mucous membranes moist Neck exam: Present: normal inspection. Absent: tenderness, meningismus, lymphadenopathy Respiratory exam: Present: normal lung sounds bilaterally. Absent: respiratory distress, wheezes, rales, rhonchi, stridor Cardiovascular Exam: Present: regular rate, normal rhythm, normal heart sounds. Absent: systolic murmur, diastolic murmur, rubs, gallop, clicks GI/Abdominal exam: Present: soft, normal bowel sounds. Absent: distended, tenderness, guarding, rebound, rigid Extremities exam: Present: normal inspection, full ROM, normal capillary refill. Absent: tenderness, pedal edema, joint swelling, calf tenderness Back exam: Present: normal inspection Neurological exam: Present: alert, oriented X3, CN II-XII intact Psychiatric exam: Present: normal affect, normal mood Skin exam: Present: warm, dry, intact, normal color. Absent: rash Course Vital Signs 11/24/19 11/25/19 23:42 00:01 Temperature 98.4 F 100.3 F H Pulse Rate 98 89 Respiratory 16 20 Rate Blood Pressure 114/63 103/49 O2 Sat by Pulse 95 98 Oximetry - Reevaluation(s) Reevaluation #1: 11/25/19 00:23 Medical records reviewed 11/25/19 00:23 Transfer paperwork is reviewed including anemia and leukopenia Reevaluation #2: 11/25/19 00:23 Patient is in no acute distress - Consultations Consultation #1: Spoke with percussion agrees to admit Medical Decision Making - Medical Decision Making 74 female with fever neutropenic fever and pancytopenia. Patient will be admitted for continued evaluation, blood cultures and hemodynamic support as well as monitoring of CBC - Radiology Data Radiology results: report reviewed (Chest x-rays negative for acute disease), image reviewed Critical Care Time Critical Care Time: Yes Total Critical Care Time: 31 Disposition Clinical Impression: Weakness, Anemia, Blood dyscrasia, Pancytopenia, Acute myeloid leukemia, Fever Disposition: ADMITTED IP TO THIS [facility] Condition: Fair Is patient prescribed a controlled substance at d/c from ED?: No Referrals: Db Boyd MD [Primary Care Provider] - 1-2 days
--- NOTE | 2019-11-25 00:40 | XR ---
EXAMINATION TYPE: XR chest 1V portable DATE OF EXAM: 11/25/2019 COMPARISON: 11/17/2019 HISTORY: Cough. Short of breath TECHNIQUE: FINDINGS: There is no heart failure. There is some coarsening of interstitial markings in the lower l alysha cantu. There is no pleural effusion. There are no hilar masses. There is right-sided central karin ous catheter with tip in the superior vena cava. IMPRESSION: Lower lobe mild pulmonary interstitial infiltrates unchanged. No heart failure seen. Ther e is probably some interstitial fibrosis.
[2019-11-25 00:49] LABS: INR 1.4 (<1.2); Partial Thromboplastin Time 36.8 sec (22.0-30.0); Prothrombin Time 13.7 sec (9.0-12.0)
[2019-11-25 01:19] LABS: HCT 21.9 % (34.0-46.0); MCH 30.5 pg (25.0-35.0); MCHC 34.3 g/dL (31.0-37.0); Mean Platelet Volume 12.9; Platelet Count 20 k/uL (150-450); RBC 2.46 m/uL (3.80-5.40); RDW 15.6 % (11.5-15.5)
[2019-11-25] MEDS: SODIUM CHLORIDE 0.9% 1,000 ML IV SCH ×3 (01:21→19:33)
[2019-11-25 01:24] LABS: HGB 7.5 gm/dL (11.4-16.0)
[2019-11-25 01:25] LABS: WBC 0.2 k/uL (3.8-10.6)
[2019-11-25 01:35] LABS: Albumin 3.3 g/dL (3.5-5.0); Calcium 7.9 mg/dL (8.4-10.2); Magnesium 1.3 mg/dL (1.6-2.3); Total Protein 6.6 g/dL (6.3-8.2)
[2019-11-25 01:44] LABS: Large Platelets Present
[2019-11-25 01:48] LABS: C Reactive Protein 174.2 mg/L (<10.0)
[2019-11-25] MEDS: ACETAMINOPHEN TAB 325 MG TAB PO PRN (08:25)
[2019-11-25] MEDS ORDERED: PIPERACILLIN-TAZOBACTAM 3.375 GM in SODIUM CHLORIDE 0.9% 100 ML IVPB SCH (09:00)
[2019-11-25] MEDS ORDERED: VENETOCLAX PO SCH (10:30)
[2019-11-25] MEDS: amLODIPine 10 MG TAB PO SCH (11:20)
[2019-11-25] MEDS: hydrALAZINE HCL 25 MG TAB PO SCH ×2 (11:43→20:57)
[2019-11-25] MEDS: FOLIC ACID 1 MG TAB PO SCH (11:44)
[2019-11-25] MEDS: VORICONAZOLE 200 MG TAB PO SCH ×2 (11:44→20:58)
[2019-11-25] MEDS: allopurinoL 100 MG TAB PO SCH (11:44)
[2019-11-25] MEDS: LEVOTHYROXINE 100 MCG TAB PO SCH (11:45)
[2019-11-25] MEDS: VENETOCLAX 100 MG PO SCH (12:46)
[2019-11-25] MEDS ORDERED: ONDANSETRON 4 MG/2 ML VIAL IVP PRN (13:16)
[2019-11-25] MEDS ORDERED: VANCOMYCIN IV PER PHARMACY 1 EACH MISC MISCELLANE PRN (14:04)
[2019-11-25] MEDS ORDERED: VANCOMYCIN 750 MG in SODIUM CHLORIDE 0.9% 250 ML IVPB ONE (14:30)
--- NOTE | 2019-11-25 17:57 | P.HPIM ---
History of Present Illness H&P Date: 11/25/19 Chief Complaint: Fever History of presenting complaint: This is 74-year-old patient who follows with Dr. Boyd. Oncologist is Dr. Merrill. Chronic stable medical conditions include hypertension, hypothyroid, chronic kidney disease,. Patient has been diagnosed with AML. Has been getting chemotherapy. Patient now presents with decreased appetite nausea and vomiting 1 today. Also had fever. 100.3 documented here. Tired and rundown. Admitted for the same. Started on IV fluids. Denies any sores in the mouth. No diarrhea. No skin changes. Review of systems: GEN.: Tired, fever EYES: None HEENT: None NECK: None RESPIRATORY: None CARDIOVASCULAR: None GASTROINTESTINAL: [Nausea, vomited 1 today GENITOURINARY: None MUSCULOSKELETAL: None LYMPHATICS: None HEMATOLOGICAL: None PSYCHIATRY: None NEUROLOGICAL: None Past medical history to include: AML, hypertension, chronic kidney disease stage IV, depression Social history: Does not smoke or drink alcohol. Lives alone. Physical examination: VITAL SIGNS: 100.3, 89, 20, 103/49, 98% on 2 L GENERAL: BMI 22.7, laying in bed, tired. EYES: Pupils equal. Conjunctiva palel. HEENT: External appearance of nose and ears normal, oral cavity grossly normal. NECK: JVD not raised; masses not palpable. HEART: First and second heart sounds are normal; no edema. LUNGS: Respiratory rate normal; clear to auscultation. ABDOMEN: Soft, nontender, liver spleen not palpable, no masses palpable. PSYCH: [Alert and oriented x3; mood and affect bit anxious l. NEUROLOGICAL: Cranial nerves grossly intact; no facial asymmetry, power and sensation grossly intact. LYMPHATICS: No lymph nodes palpable in the axilla and neck INVESTIGATIONS, reviewed in the clinical context: White count 0.2 hemoglobin 7.5 platelets 20 potassium 4 bun 41 and creatinine 1.70 CRP 174 pro-calcitonin 1.85 Chest x-ray film personally reviewed by me-questionable chronic infiltrate EKG tracing personally reviewed by me-sinus rhythm with left bundle-branch block Assessment: -Neutropenic fever in a patient getting chemotherapy for AML. No obvious source of infection. Empirically started on IV Zosyn and vancomycin added. -Pancytopenia secondary to chemotherapy -AML -Left bundle-branch block -Chronic kidney disease stage IV, multifactorial -Essential hypertension -Hypothyroid Plan: Patient started on IV vancomycin and Zosyn. Home medications resumed. Blood cultures are pending. Sendoff a UA. Oncology consulted. Discussed with the patient. IV fluids. Past Medical History Past Medical History: Blood Disorder, Cancer, Hypertension, Renal Disease Additional Past Medical History / Comment(s): Anemia, Stage 4 kidney disease, AML- started inpt. chemo 11/17/19- History of Any Multi-Drug Resistant Organisms: None Reported Past Surgical History: Appendectomy, Hysterectomy Past Anesthesia/Blood Transfusion Reactions: No Reported Reaction Past Psychological History: Depression Smoking Status: Never smoker Past Alcohol Use History: None Reported Past Drug Use History: None Reported - Past Family History Father Family Medical History: Cancer Additional Family Medical History / Comment(s): esophageal cancer Mother Family Medical History: Hypertension Medications and Allergies Home Medications Medication Instructions Recorded Confirmed Type Folate 666 mcg PO DAILY 09/08/19 11/25/19 History allopurinoL [Zyloprim] 100 mg PO DAILY 09/08/19 11/25/19 History calcitrioL [Rocaltrol] 0.25 mcg PO TU 09/08/19 11/25/19 History Venetoclax [Venclexta] 200 mg PO DAILY 09/27/19 11/25/19 History Levothyroxine Sodium [Synthroid] 100 mcg PO DAILY@0630 #30 tab 10/25/19 11/25/19 Rx amLODIPine [Norvasc] 10 mg PO DAILY #30 tab 10/25/19 11/25/19 Rx Acetaminophen Tab [Tylenol] 325 - 650 mg PO Q4H PRN 11/19/19 11/25/19 History hydrALAZINE HCL [Apresoline] 25 mg PO BID 11/19/19 11/25/19 History Voriconazole 200 mg PO BID 11/25/19 11/25/19 History Allergies Allergy/AdvReac Type Severity Reaction Status Date / Time No Known Allergies Allergy Verified 11/25/19 08:30 Physical Exam Vitals: Vital Signs Temp Pulse Resp BP Pulse Ox 11/25/19 09:27 99.5 F 11/25/19 08:00 18 11/25/19 03:41 18 11/25/19 01:00 98.0 F 79 18 108/51 97 11/25/19 00:01 100.3 F H 89 20 103/49 98 08/26/20 23:42 98.4 F 98 16 114/63 95 Intake and Output 11/24/19 11/25/19 11/25/19 22:59 06:59 14:59 Intake Total 100 Output Total 1 Balance 99 Intake: Oral 100 Output: Urine 1 Other: Voiding Method Toilet Toilet # Voids 1 Weight 42.638 kg 42.638 kg Results CBC & Chem 7: 11/25/19 01:10 11/25/19 01:10 Labs: Abnormal Lab Results - Last 24 Hours (Table) 11/25/19 11/25/19 11/25/19 Range/Units 00:26 00:26 01:10 WBC 0.2 L* (3.8-10.6) k/uL RBC 2.46 L (3.80-5.40) m/uL Hgb 7.5 L D (11.4-16.0) gm/dL Hct 21.9 L (34.0-46.0) % RDW 15.6 H (11.5-15.5) % Plt Count 20 L (150-450) k/uL PT 13.7 H (9.0-12.0) sec INR 1.4 H (<1.2) APTT 36.8 H (22.0-30.0) sec Sodium (137-145) mmol/L Carbon Dioxide (22-30) mmol/L BUN (7-17) mg/dL Creatinine (0.52-1.04) mg/dL Plasma Lactic Acid Campbell 0.5 L (0.7-2.0) mmol/L Calcium (8.4-10.2) mg/dL Magnesium (1.6-2.3) mg/dL C-Reactive Protein (<10.0) mg/L Albumin (3.5-5.0) g/dL 11/25/19 Range/Units 01:10 WBC (3.8-10.6) k/uL RBC (3.80-5.40) m/uL Hgb (11.4-16.0) gm/dL Hct (34.0-46.0) % RDW (11.5-15.5) % Plt Count (150-450) k/uL PT (9.0-12.0) sec INR (<1.2) APTT (22.0-30.0) sec Sodium 131 L (137-145) mmol/L Carbon Dioxide 17 L (22-30) mmol/L BUN 41 H (7-17) mg/dL Creatinine 1.70 H (0.52-1.04) mg/dL Plasma Lactic Acid Campbell (0.7-2.0) mmol/L Calcium 7.9 L (8.4-10.2) mg/dL Magnesium 1.3 L (1.6-2.3) mg/dL C-Reactive Protein 174.2 H (<10.0) mg/L Albumin 3.3 L (3.5-5.0) g/dL Thrombosis Risk Factor Assmnt - Choose All That Apply Each Risk Factor Represents 3 Points: Age 75 years or older Thrombosis Risk Factor Assessment Total Risk Factor Score: 3 Thrombosis Risk Factor Assessment Level: Moderate Risk
[2019-11-25] MEDS: PIPERACILLIN-TAZOBACTAM 3.375 GM in SODIUM CHLORIDE 0.9% 100 ML IVPB SCH (20:58)
[2019-11-26] MEDS: SODIUM CHLORIDE 0.9% 1,000 ML IV SCH ×4 (02:03→20:30)
[2019-11-26] MEDS: LEVOTHYROXINE 100 MCG TAB PO SCH (05:54)
[2019-11-26 06:45] LABS: Amorphous Sediment,Urine Rare /hpf; Appearance,Urine Cloudy (Clear); Bacteria,Urine Occasional /hpf; Bilirubin,Urine Negative (Negative); Blood,Urine Trace (Negative); Color,Urine Yellow; Glucose,Urine (UA) Negative (Negative); Ketones,Urine Negative (Negative); Leukocyte Esterase,Urine Negative (Negative); Nitrite,Urine Negative (Negative); PH, Urine 5.5 (5.0-8.0); Protein,Urine 1+ (Negative); RBC,Urine 1 /hpf (0-5); Specific Gravity,Urine 1.014 (1.001-1.035); Squamous Epithelial Cell,Urine <1 /hpf (0-4); Urobilinogen,Urine <2.0 mg/dL (<2.0); WBC,Urine 1 /hpf (0-5)
[2019-11-26] MEDS: amLODIPine 10 MG TAB PO SCH (07:44)
[2019-11-26] MEDS: hydrALAZINE HCL 25 MG TAB PO SCH ×2 (07:45→20:16)
[2019-11-26] MEDS: VENETOCLAX 100 MG PO SCH (08:00)
[2019-11-26] MEDS: allopurinoL 100 MG TAB PO SCH (08:00)
[2019-11-26] MEDS: PIPERACILLIN-TAZOBACTAM 3.375 GM in SODIUM CHLORIDE 0.9% 100 ML IVPB SCH (08:00)
[2019-11-26] MEDS: FOLIC ACID 1 MG TAB PO SCH (08:00)
[2019-11-26] MEDS: VORICONAZOLE 200 MG TAB PO SCH ×2 (08:00→20:30)
[2019-11-26 08:53] LABS: Calcium 7.6 mg/dL (8.4-10.2); Potassium 4.2 mmol/L (3.5-5.1)
[2019-11-26 08:55] LABS: HCT 20.1 % (34.0-46.0); Hypochromasia Slight; MCH 29.5 pg (25.0-35.0); MCHC 32.1 g/dL (31.0-37.0); MCV 92.1 fL (80.0-100.0); Mean Platelet Volume 15.8; RBC 2.19 m/uL (3.80-5.40); RDW 15.9 % (11.5-15.5)
[2019-11-26] MEDS ORDERED: VANCOMYCIN 750 MG in SODIUM CHLORIDE 0.9% 250 ML IVPB ONE (09:00)
[2019-11-26 09:07] LABS: WBC 0.2 k/uL (3.8-10.6)
[2019-11-26 09:10] LABS: Platelet Count 16 k/uL (150-450)
[2019-11-26 09:11] LABS: HGB 6.5 gm/dL (11.4-16.0)
[2019-11-26 10:41] LABS: Poikilocytosis (M) Present
[2019-11-26 10:43] LABS: Large Platelets Present
[2019-11-26 11:54] LABS: Phosphorus 3.9 mg/dL (2.5-4.5); Uric Acid 3.5 mg/dL (3.7-7.4)
[2019-11-26] MEDS ORDERED: CEFEPIME 1 GM in SODIUM CHLORIDE 0.9% 50 ML IVPB ONE (12:00)
[2019-11-26 12:37] LABS: INR 1.2 (<1.2); Prothrombin Time 12.1 sec (9.0-12.0)
--- NOTE | 2019-11-26 13:54 | P.CONS ---
History of Present Illness - Reason for Consult Consult date: 11/26/19 aml Requesting physician: Graham Fishman - Chief Complaint Weakness - History of Present Illness Roxane is a pleasant 74 year old female well known to our practice for treatment of her Acute Leukemia, primary oncologist Dr. Chavez. 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 On 09/26/2019,she was admitted to the hospital for the first cycle of dacogen/venetoclax,her course was complicated by TLS,which resolved. She had a repeat bone marrow biopsy on 10/12/2019 which revealed residual 7-8% blasts She feels tired,weak,no fever,night sweats,her ANC and platelets counts improved,she remained anemic. She was last seen on 11/17/19-This was status post second 5 day cycle of Dacogen, continued on ventoclax 100 mg daily. She has had two hospital admissions since this time for need of transfusions, weakness. She presented on 11/24 with fevers and weakness. T max 101.7. Full peraza cultures have been ordered and pending. 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 Review of Systems All systems: negative (HPI) Past Medical History Past Medical History: Blood Disorder, Cancer, Hypertension, Renal Disease Additional Past Medical History / Comment(s): Anemia, Stage 4 kidney disease, AML- started inpt. chemo 11/17/19- History of Any Multi-Drug Resistant Organisms: None Reported Past Surgical History: Appendectomy, Hysterectomy Past Anesthesia/Blood Transfusion Reactions: No Reported Reaction Past Psychological History: Depression Smoking Status: Never smoker Past Alcohol Use History: None Reported Past Drug Use History: None Reported - Past Family History Father Family Medical History: Cancer Additional Family Medical History / Comment(s): esophageal cancer Mother Family Medical History: Hypertension Medications and Allergies Home Medications Medication Instructions Recorded Confirmed Type Folate 666 mcg PO DAILY 09/08/19 11/25/19 History allopurinoL [Zyloprim] 100 mg PO DAILY 09/08/19 11/25/19 History calcitrioL [Rocaltrol] 0.25 mcg PO TU 09/08/19 11/25/19 History Venetoclax [Venclexta] 200 mg PO DAILY 09/27/19 11/25/19 History Levothyroxine Sodium [Synthroid] 100 mcg PO DAILY@0630 #30 tab 10/25/19 11/25/19 Rx amLODIPine [Norvasc] 10 mg PO DAILY #30 tab 10/25/19 11/25/19 Rx Acetaminophen Tab [Tylenol] 325 - 650 mg PO Q4H PRN 11/19/19 11/25/19 History hydrALAZINE HCL [Apresoline] 25 mg PO BID 11/19/19 11/25/19 History Voriconazole 200 mg PO BID 11/25/19 11/25/19 History Allergies Allergy/AdvReac Type Severity Reaction Status Date / Time No Known Allergies Allergy Verified 11/25/19 08:30 Physical Exam Vitals: Vital Signs Temp Pulse Resp BP Pulse Ox 11/26/19 08:04 65 16 11/26/19 07:22 97.7 F 65 16 95/57 91 L 11/26/19 00:58 101.7 F H 69 22 105/56 87 L 11/26/19 00:00 105 H 18 11/25/19 19:46 97.6 F 105 H 16 115/60 95 Intake and Output 11/25/19 11/26/19 11/26/19 22:59 06:59 14:59 Intake Total 590 200 Output Total 1 Balance 590 199 Intake: Intake, IV Titration 490 Amount Piperacillin-Tazobactam 3 100 .375 gm In Sodium Chloride 0.9% 100 ml @ 25 mls/hr IVPB Q12HR [facility] Rx #:[id number] Sodium Chloride 0.9% 1, 390 000 ml @ 130 mls/hr IV . Q7H42M [facility] Rx#:[id number] Oral 100 200 Output: Urine 1 Other: Voiding Method Toilet Toilet Toilet # Voids 1 1 Constitutional General appearance: Present: no acute distress - EENT Eyes: Present: EOMI ENT: Present: hearing grossly normal, normal oropharynx - Respiratory Respiratory: bilateral: diminished (At bases) - Cardiovascular Rhythm: regular Heart sounds: normal: S1, S2 - Gastrointestinal General gastrointestinal: Present: normal bowel sounds, soft - Integumentary Integumentary: Present: normal - Neurologic Neurologic: Present: CNII-XII intact - Musculoskeletal Musculoskeletal: Present: generalized weakness (Improved), strength equal bilaterally - Psychiatric Psychiatric: Present: A&O x's 3, appropriate affect Results CBC & Chem 7: 11/27/19 06:00 11/27/19 06:00 Labs: Abnormal Lab Results - Last 24 Hours (Table) 11/26/19 11/26/19 11/26/19 Range/Units 06:30 07:57 07:57 WBC 0.2 L* (3.8-10.6) k/uL RBC 2.19 L (3.80-5.40) m/uL Hgb 6.5 L* (11.4-16.0) gm/dL Hct 20.1 L (34.0-46.0) % RDW 15.9 H (11.5-15.5) % Plt Count 16 L* (150-450) k/uL PT (9.0-12.0) sec INR (<1.2) APTT (22.0-30.0) sec Sodium 131 L (137-145) mmol/L Carbon Dioxide 14 L (22-30) mmol/L BUN 38 H (7-17) mg/dL Creatinine 2.01 H (0.52-1.04) mg/dL Uric Acid (3.7-7.4) mg/dL Calcium 7.6 L (8.4-10.2) mg/dL Urine Appearance Cloudy H (Clear) Urine Protein 1+ H (Negative) Urine Blood Trace H (Negative) Amorphous Sediment Rare H (None) /hpf Urine Bacteria Occasional H (None) /hpf 11/26/19 11/26/19 Range/Units 07:57 11:45 WBC (3.8-10.6) k/uL RBC (3.80-5.40) m/uL Hgb (11.4-16.0) gm/dL Hct (34.0-46.0) % RDW (11.5-15.5) % Plt Count (150-450) k/uL PT 12.1 H (9.0-12.0) sec INR 1.2 H (<1.2) APTT 37.0 H (22.0-30.0) sec Sodium (137-145) mmol/L Carbon Dioxide (22-30) mmol/L BUN (7-17) mg/dL Creatinine (0.52-1.04) mg/dL Uric Acid 3.5 L (3.7-7.4) mg/dL Calcium (8.4-10.2) mg/dL Urine Appearance (Clear) Urine Protein (Negative) Urine Blood (Negative) Amorphous Sediment (None) /hpf Urine Bacteria (None) /hpf Microbiology - Last 24 Hours (Table) 11/25/19 00:26 Blood Culture - Preliminary Blood No Growth after 24 hours Assessment and Plan Plan: Assessment and recommendations: Febrile Neutropenia: - ID following - Awaiting full peraza cultures - Broad abx Acute on Chronic Renal Failure: - Worsening with dehydration and infection - Monitor daily 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 - Dacogen on hold last treatment 11/03 Left upper ex picc associated DVT - No AC therapy with Thrombocytopenia Pancytopenia - Secondary to AML and Chemo - improved - Continue to monitor daily - Supportive transfusions PRN - No GCSF as patient has not acheived remission - transfuse PRBC irradiated today hemoglobin less than 7 - Transfuse platelets less than 10K PLan Transfuse one unit today WIll plan for another BM soon Physician Attest: I have completed the fullhistory and physical and agree with above dictation, dictated as a scribe
[2019-11-26] MEDS ORDERED: CEFEPIME 2 GM in SODIUM CHLORIDE 0.9% 100 ML IVPB SCH (16:00)
[2019-11-26] MEDS: ACETAMINOPHEN TAB 325 MG TAB PO PRN (19:35)
--- NOTE | 2019-11-26 21:12 | P.PN ---
Progress Note - Text Progress Note Date: 11/26/19 Chief Complaint: Fever History of presenting complaint: This is 74-year-old patient who follows with Dr. Boyd. Oncologist is Dr. Merrill. Chronic stable medical conditions include hypertension, hypothyroid, chronic kidney disease,. Patient has been diagnosed with AML. Has been getting chemotherapy. Patient now presents with decreased appetite nausea and vomiting 1 today. Also had fever. 100.3 documented here. Tired and rundown. Admitted for the same. Started on IV fluids. Denies any sores in the mouth. No diarrhea. No skin changes. Today-feeling tired. Decreased appetite. Eating about 25%. No fever. Getting antibiotics. No further fever Review of systems: Was done for constitutional, cardiovascular, GI, pulmonary. relevant finding as above Active Medications Acetaminophen (Tylenol Tab) 650 mg PO Q6HR PRN PRN Reason: Fever and/ or Pain Last Admin: 11/26/19 19:35 Dose: 650 mg Documented by: Allopurinol (Zyloprim) 100 mg PO DAILY [facility] Last Admin: 11/26/19 08:00 Dose: 100 mg Documented by: Amlodipine Besylate (Norvasc) 10 mg PO DAILY [facility] Last Admin: 11/26/19 07:44 Dose: Not Given Documented by: Calcitriol (Rocaltrol) 0.25 mcg PO [facility] Folic Acid (Folic Acid) 1 mg PO DAILY [facility] Last Admin: 11/26/19 08:00 Dose: 1 mg Documented by: Hydralazine HCl (Apresoline) 25 mg PO BID [facility] Last Admin: 11/26/19 20:16 Dose: Not Given Documented by: Sodium Chloride (Saline 0.9%) 1,000 mls @ 130 mls/hr IV .Q7H42M [facility] Last Admin: 11/26/19 20:30 Dose: 130 mls/hr Documented by: Cefepime HCl 1 gm/ Sodium (Chloride) 50 mls @ 12.5 mls/hr IVPB Q12H [facility] Levothyroxine Sodium (Synthroid) 100 mcg PO DAILY@0630 [facility] Last Admin: 11/26/19 05:54 Dose: 100 mcg Documented by: Miscellaneous Information (Pharmacy To Dose Iv Vancomycin) 1 each MISCELLANE DIRECTED PRN; Protocol PRN Reason: Per Protocol Ondansetron HCl (Zofran) 4 mg IVP Q6HR PRN PRN Reason: Nausea And Vomiting Voriconazole (Vfend) 200 mg PO BID [facility] Last Admin: 11/26/19 20:30 Dose: 200 mg Documented by: Physical examination: VITAL SIGNS: 97.7, 65, 16, 95/57, 91% on 4 L GENERAL: BMI 22.7, laying in bed, tired. EYES: Pupils equal. Conjunctiva palel. HEENT: External appearance of nose and ears normal, oral cavity grossly normal. NECK: JVD not raised; masses not palpable. HEART: First and second heart sounds are normal; no edema. LUNGS: Respiratory rate normal; clear to auscultation. ABDOMEN: Soft, nontender, liver spleen not palpable, no masses palpable. PSYCH: Alert and oriented x3; mood and affect bit anxious INVESTIGATIONS, reviewed in the clinical context: White count 0.2 hemoglobin 6.5 platelets 16 potassium 4.2 bun 38 creatinine 2.01 Blood cultures negative lung Previous testing White count 0.2 hemoglobin 7.5 platelets 20 potassium 4 bun 41 and creatinine 1.70 CRP 174 pro-calcitonin 1.85 Chest x-ray film personally reviewed by me-questionable chronic infiltrate EKG tracing personally reviewed by me-sinus rhythm with left bundle-branch block Assessment: -Neutropenic fever in a patient getting chemotherapy for AML. No obvious source of infection. Empirically started on IV Zosyn and vancomycin added. -Pancytopenia secondary to chemotherapy-worsening -Severe anemia from pancytopenia to be transfer unit of blood today -AML -Left bundle-branch block -Chronic kidney disease stage IV, multifactorial -Essential hypertension -Hypothyroid -Metabolic acidosis from renal failure Plan: In view of patient's renal failure this is the patient over to daptomycin. Follow renal function closely. Unit of blood was ordered. Patient encouraged to take ensure supplement. Encouraged to sit up in a chair. Zosyn changed over over to cefepime.
--- NOTE | 2019-11-26 22:56 | P.CONS ---
History of Present Illness - Reason for Consult Consult date: 11/26/19 Febrile neutropenia Requesting physician: Graham Fishman - Chief Complaint Fever 1 day - History of Present Illness Patient is 74 -year-old female with recent diagnosis of acute myeloid leukemia for the patient has completed her induction chemotherapy, through a right forearm PICC line which has been there for more than a month now, patient presented to the ER yesterday with a chief complaints of fever and weakness patient did have fever for 1 day for presented to hospital patient denies having any headache or URI symptoms, denies having any chest pain she did have some shortness of breath on minimal exertion and a minimal cough or bring up any sputum patient denies having nausea no vomiting no abdominal pain no diarrhea or constipation on arrival to the patient did have low-grade fever 100.3F subsequent discharged back to fever of 101F patient was noticed to be neutropenic with a white count of 0.5, patient did have a normal UA chest x-ray has been done which did shows left lower lobe mild pulmonary interstitial infiltrate unchanged and no new infiltrate patient was started on vancomycin and Zosyn and infectious disease was consulted for further management of antibiotic therapy Review of Systems Positive point has been mentioned in the HPI rest of the systems are negative Past Medical History Past Medical History: Blood Disorder, Cancer, Hypertension, Renal Disease Additional Past Medical History / Comment(s): Anemia, Stage 4 kidney disease, AML- started inpt. chemo 11/17/19- History of Any Multi-Drug Resistant Organisms: None Reported Past Surgical History: Appendectomy, Hysterectomy Past Anesthesia/Blood Transfusion Reactions: No Reported Reaction Past Psychological History: Depression Smoking Status: Never smoker Past Alcohol Use History: None Reported Past Drug Use History: None Reported - Past Family History Father Family Medical History: Cancer Additional Family Medical History / Comment(s): esophageal cancer Mother Family Medical History: Hypertension Medications and Allergies Home Medications Medication Instructions Recorded Confirmed Type Folate 666 mcg PO DAILY 09/08/19 11/25/19 History allopurinoL [Zyloprim] 100 mg PO DAILY 09/08/19 11/25/19 History calcitrioL [Rocaltrol] 0.25 mcg PO TU 09/08/19 11/25/19 History Venetoclax [Venclexta] 200 mg PO DAILY 09/27/19 11/25/19 History Levothyroxine Sodium [Synthroid] 100 mcg PO DAILY@0630 #30 tab 10/25/19 11/25/19 Rx amLODIPine [Norvasc] 10 mg PO DAILY #30 tab 10/25/19 11/25/19 Rx Acetaminophen Tab [Tylenol] 325 - 650 mg PO Q4H PRN 11/19/19 11/25/19 History hydrALAZINE HCL [Apresoline] 25 mg PO BID 11/19/19 11/25/19 History Voriconazole 200 mg PO BID 11/25/19 11/25/19 History Allergies Allergy/AdvReac Type Severity Reaction Status Date / Time No Known Allergies Allergy Verified 11/25/19 08:30 Physical Exam Vitals: Vital Signs Temp Pulse Resp BP Pulse Ox 11/26/19 08:04 65 16 11/26/19 07:22 97.7 F 65 16 95/57 91 L 11/26/19 00:58 101.7 F H 69 22 105/56 87 L 11/26/19 00:00 105 H 18 11/25/19 19:46 97.6 F 105 H 16 115/60 95 11/25/19 13:26 98.1 F 89 14 104/61 97 Intake and Output 11/25/19 11/26/19 11/26/19 22:59 06:59 14:59 Intake Total 590 200 Output Total 1 Balance 590 199 Intake: Intake, IV Titration 490 Amount Piperacillin-Tazobactam 3 100 .375 gm In Sodium Chloride 0.9% 100 ml @ 25 mls/hr IVPB Q12HR [facility] Rx #:[id number] Sodium Chloride 0.9% 1, 390 000 ml @ 130 mls/hr IV . Q7H42M [facility] Rx#:[id number] Oral 100 200 Output: Urine 1 Other: Voiding Method Toilet Toilet Toilet # Voids 1 1 GENERAL DESCRIPTION: An elderly female lying in bed, no distress. No tachypnea or accessory muscle of respiration use. HEENT: Shows Pallor , no scleral icterus. Oral mucous membrane is dry. No pharyngeal erythema or thrush NECK: Trachea central, no thyromegaly. LUNGS: Unlabored breathing. Decreased breath sounds at the base. No wheeze or crackle. HEART: S1, S2, regular rate and rhythm. No loud murmur ABDOMEN: Soft, no tenderness , guarding or rigidity, no organomegaly EXTREMITIES: No edema of feet. SKIN: No rash, no masses palpable. NEUROLOGICAL: The patient is awake, alert, oriented x3, mood and affect normal. Results CBC & Chem 7: 11/26/19 07:57 11/26/19 07:57 Labs: Abnormal Lab Results - Last 24 Hours (Table) 11/25/19 11/26/19 11/26/19 Range/Units 00:26 06:30 07:57 WBC (3.8-10.6) k/uL RBC (3.80-5.40) m/uL Hgb (11.4-16.0) gm/dL Hct (34.0-46.0) % RDW (11.5-15.5) % Plt Count (150-450) k/uL Sodium 131 L (137-145) mmol/L Carbon Dioxide 14 L (22-30) mmol/L BUN 38 H (7-17) mg/dL Creatinine 2.01 H (0.52-1.04) mg/dL Calcium 7.6 L (8.4-10.2) mg/dL Procalcitonin 1.85 H (0.02-0.09) ng/mL Urine Appearance Cloudy H (Clear) Urine Protein 1+ H (Negative) Urine Blood Trace H (Negative) Amorphous Sediment Rare H (None) /hpf Urine Bacteria Occasional H (None) /hpf 11/26/19 Range/Units 07:57 WBC 0.2 L* (3.8-10.6) k/uL RBC 2.19 L (3.80-5.40) m/uL Hgb 6.5 L* (11.4-16.0) gm/dL Hct 20.1 L (34.0-46.0) % RDW 15.9 H (11.5-15.5) % Plt Count 16 L* (150-450) k/uL Sodium (137-145) mmol/L Carbon Dioxide (22-30) mmol/L BUN (7-17) mg/dL Creatinine (0.52-1.04) mg/dL Calcium (8.4-10.2) mg/dL Procalcitonin (0.02-0.09) ng/mL Urine Appearance (Clear) Urine Protein (Negative) Urine Blood (Negative) Amorphous Sediment (None) /hpf Urine Bacteria (None) /hpf Microbiology - Last 24 Hours (Table) 11/25/19 00:26 Blood Culture - Preliminary Blood No Growth after 24 hours Assessment and Plan Assessment: 1- patient with a history of acute myeloid leukemia for the patient did have induction chemotherapy now presenting to the hospital with fever In this patient source is probably the PICC line which has been there for more than a month now patient currently did not have significant respiratory symptoms and chest x-ray did not show any consolidation no urinary symptoms and UA has been negative evidence of any cellulitis and abdominal soft nontender on clinical Examination (1) Febrile neutropenia Current Visit: No Status: Acute Code(s): D70.9 - NEUTROPENIA, UNSPECIFIED; R50.81 - FEVER PRESENTING WITH CONDITIONS CLASSIFIED ELSEWHERE SNOMED Code(s): 568874750 Plan: 1- blood cultures will be requested from the PICC line and peripherally 2- Vancomycin pharmacy to dose target trough of 15 while watching his kidney function and Vanco trough closely 3- discontinue Zosyn and add cefepime to cover for gram-negative We will follow on clinical condition and cultures to further adjust medication if needed Thank you for this consultation will follow this patient with you Time with Patient: Greater than 30
[2019-11-26] MEDS: CEFEPIME 1 GM in SODIUM CHLORIDE 0.9% 50 ML IVPB SCH (23:12)
[2019-11-27] MEDS: LEVOTHYROXINE 100 MCG TAB PO SCH (05:54)
[2019-11-27] MEDS: SODIUM CHLORIDE 0.9% 1,000 ML IV SCH ×2 (05:54→16:37)
[2019-11-27 06:25] LABS: Anisocytosis Slight; HCT 20.6 % (34.0-46.0); MCH 29.6 pg (25.0-35.0); MCHC 32.3 g/dL (31.0-37.0); MCV 91.6 fL (80.0-100.0); Mean Platelet Volume 15.6; RBC 2.25 m/uL (3.80-5.40); RDW 16.2 % (11.5-15.5)
[2019-11-27 06:27] LABS: Albumin 2.6 g/dL (3.5-5.0); Calcium 7.6 mg/dL (8.4-10.2); HGB 6.7 gm/dL (11.4-16.0); Magnesium 1.4 mg/dL (1.6-2.3); Phosphorus 3.4 mg/dL (2.5-4.5); Platelet Count 20 k/uL (150-450); Potassium 3.7 mmol/L (3.5-5.1); Total Protein 5.7 g/dL (6.3-8.2); WBC 0.2 k/uL (3.8-10.6)
[2019-11-27 06:46] LABS: Large Platelets Present
[2019-11-27 06:52] LABS: Crenated RBC Present
[2019-11-27 07:14] LABS: Vancomycin,Random 11.3 ug/mL
[2019-11-27] MEDS ORDERED: DAPTOmycin 500 MG in SODIUM CHLORIDE 0.9% 50 ML IVPB SCH (08:00)
[2019-11-27] MEDS: VORICONAZOLE 200 MG TAB PO SCH ×2 (08:38→20:15)
[2019-11-27] MEDS: allopurinoL 100 MG TAB PO SCH (08:38)
[2019-11-27] MEDS: FOLIC ACID 1 MG TAB PO SCH (08:38)
[2019-11-27] MEDS: hydrALAZINE HCL 25 MG TAB PO SCH ×2 (08:39→20:09)
[2019-11-27] MEDS: amLODIPine 10 MG TAB PO SCH (08:39)
[2019-11-27] MEDS: CEFEPIME 1 GM in SODIUM CHLORIDE 0.9% 50 ML IVPB SCH ×2 (11:31→23:07)
--- NOTE | 2019-11-27 12:26 | XR ---
EXAMINATION TYPE: XR chest 1V portable DATE OF EXAM: 11/27/2019 Comparison: 11/25/2019 Clinical History: 74-year-old female increased oxygen demands Findings: Right PICC tip at the cavoatrial junction. Right heart margin partially obscured by adjacent pleural parenchymal opacity. Small right greater than left pleural effusions with adjacent opacity, increased from prior. Impression: Increasing small right greater than left pleural effusions with adjacent atelectasis and/or consolida tion. Correlate for possible fluid overload or CHF as an etiology.
[2019-11-27] MEDS ORDERED: FUROSEMIDE 10 MG/ML 4 ML VIAL IV STA (12:52)
--- NOTE | 2019-11-27 13:04 | P.PN ---
Subjective Progress Note Date: 11/27/19 Principal diagnosis: Pancytopenia, AML Hemoglobin is still less than 7, transfusion support today Objective - Vital Signs Vital signs: Vital Signs Temp 98.3 F 11/27/19 07:00 Pulse 60 11/27/19 12:32 Resp 28 H 11/27/19 08:42 BP 119/66 11/27/19 12:32 Pulse Ox 92 L 11/27/19 12:45 Intake & Output 11/26/19 11/27/19 11/27/19 18:59 06:59 18:59 Intake Total 480 1430 Balance 480 1430 Intake: Intake, IV Titration 1430 Amount Sodium Chloride 0.9% 1, 1430 000 ml @ 130 mls/hr IV . Q7H42M [facility] Rx#:[id number] Oral 480 Other: Voiding Method Toilet Toilet Toilet # Voids 1 2 - Exam Constitutional General appearance: Present: no acute distress - EENT Eyes: Present: EOMI ENT: Present: hearing grossly normal, normal oropharynx - Respiratory Respiratory: bilateral: diminished (At bases) - Cardiovascular Rhythm: regular Heart sounds: normal: S1, S2 - Gastrointestinal General gastrointestinal: Present: normal bowel sounds, soft - Integumentary Integumentary: Present: normal - Neurologic Neurologic: Present: CNII-XII intact - Musculoskeletal Musculoskeletal: Present: generalized weakness (Improved), strength equal bilaterally - Psychiatric Psychiatric: Present: A&O x's 3, appropriate affect - Labs CBC & Chem 7: 11/27/19 06:00 11/27/19 06:00 Labs: Abnormal Lab Results - Last 24 Hours (Table) 11/26/19 11/27/19 11/27/19 Range/Units 07:57 06:00 06:00 WBC 0.2 L* (3.8-10.6) k/uL RBC 2.25 L (3.80-5.40) m/uL Hgb 6.7 L* (11.4-16.0) gm/dL Hct 20.6 L (34.0-46.0) % RDW 16.2 H (11.5-15.5) % Plt Count 20 L (150-450) k/uL Sodium 136 L (137-145) mmol/L Chloride 113 H (98-107) mmol/L Carbon Dioxide 14 L (22-30) mmol/L BUN 42 H (7-17) mg/dL Creatinine 2.00 H (0.52-1.04) mg/dL Calcium 7.6 L (8.4-10.2) mg/dL Magnesium 1.4 L (1.6-2.3) mg/dL Total Protein 5.7 L (6.3-8.2) g/dL Albumin 2.6 L (3.5-5.0) g/dL Crossmatch See Detail Microbiology - Last 24 Hours (Table) 11/25/19 00:26 Blood Culture - Preliminary Blood No Growth after 48 hours 11/26/19 16:00 Urine Culture - Preliminary Urine,Voided Assessment and Plan Plan: Assessment and recommendations: Febrile Neutropenia: - ID following - Awaiting full peraza cultures - Broad abx Acute on Chronic Renal Failure: - Worsening with dehydration and infection - Monitor daily 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 - Dacogen on hold last treatment 11/03 Left upper ex picc associated DVT - No AC therapy with Thrombocytopenia Pancytopenia - Secondary to AML and Chemo - improved - Continue to monitor daily - Supportive transfusions PRN - No GCSF as patient has not acheived remission - transfuse PRBC irradiated today hemoglobin less than 7 - Transfuse platelets less than 10K PLan Transfuse one unit today of PRBC WIll plan for another BM soon CBC and CMP daily
--- NOTE | 2019-11-27 15:17 | CT ---
EXAMINATION TYPE: CT chest wo con DATE OF EXAM: 11/27/2019 COMPARISON: None HISTORY: Difficulty breathing. CT DLP: 240.1 mGycm, Automated exposure control for dose reduction was used. CONTRAST: Performed injected with 0 mL of Isovue 300. TECHNIQUE: Axial images were obtained at 5 mm thick sections. Reconstructed images are reviewed on [facility] computer in the coronal plane. FINDINGS: Portion of the thyroid visualized is normal. At the right apex or couple of areas of pleural thickening or scarring measuring 0.8-0.9 cm. Monitori ng is recommended. Neoplasm not entirely excluded. Some minimal scarring is suspected at the left ape x. Small bilateral pleural effusions are present. Some mild compressive atelectasis at the right base. M ilder compressive atelectasis at the left base. No enlarged mediastinal or hilar adenopathy is evident. The ascending aorta diameter at the level o f the main pulmonary artery is 3.3 cm. The main pulmonary artery diameter at the bifurcation is 2.9 cm. Coronary artery calcifications present. Some minimal pericardial effusion may be present. Limited CT sections are obtained through the upper abdomen. Abdomen is essentially unremarkable. IMPRESSIONS: 1. Small bilateral pleural effusions with adjacent compressive atelectasis. 2. Bilateral apical thickening. Monitoring is recommended. Neoplasm is not excluded on the basis of t his exam.
--- NOTE | 2019-11-27 16:41 | PN ---
PROGRESS NOTE DATE OF SERVICE: 11/27/2019 REASON FOR FOLLOWUP: Febrile neutropenia and question of pneumonia. INTERVAL HISTORY: Patient is currently afebrile. The patient is complaining of shortness of breath and is requiring high-flow oxygen. Denies having any chest pain, cough, not bringing up any sputum. No nausea, vomiting. No abdominal pain. No diarrhea. PHYSICAL EXAMINATION: Blood pressure 133/63 with a pulse of 81, temperature 98.8. She is 96% on non- rebreather. General description is an elderly female lying in bed in no distress. Respiratory system: Unlabored breathing, decreased breath sounds in the base, with no wheeze. Heart S1, S2. Regular rate and rhythm. Abdomen soft, no tenderness. LABS: Hemoglobin 6.7, white count 0.2, BUN of 42, creatinine 2.0. Vanco was 11.3. Blood culture has been negative so far. Urine is negative. DIAGNOSTIC IMPRESSION AND PLAN: Patient with febrile neutropenia with concern for possible pneumonia. Initial concern was for a line infection. However, the blood culture has been negative making it very unlikely. We will obtain a CT of the chest to better define underlying pneumonia to determine any evidence of any loculated effusion. We will add Zyvox to cover for gram- positive. Discontinue daptomycin. Continue cefepime. Dose has been cut back by the pharmacy because of her kidney function and overall prognosis remains to be guarded but monitor closely. MMODL / IJN: [id number] /
--- NOTE | 2019-11-27 17:00 | P.PN ---
Progress Note - Text Progress Note Date: 11/27/19 Chief Complaint: Fever History of presenting complaint: This is 74-year-old patient who follows with Dr. Boyd. Oncologist is Dr. Merrill. Chronic stable medical conditions include hypertension, hypothyroid, chronic kidney disease,. Patient has been diagnosed with AML. Has been getting chemotherapy. Patient now presents with decreased appetite nausea and vomiting 1 today. Also had fever. 100.3 documented here. Tired and rundown. Admitted for the same. Started on IV fluids. Denies any sores in the mouth. No diarrhea. No skin changes. Admitted with neutropenic fever. Empirically started on vancomycin and Zosyn. Because of renal function swished over to linezolid. Zosyn swished over to cefepime. Today-More short of breath today. Requiring high flow nasal cannula. On of the chest x-ray. Possible fluid overload. Lasix 40 mg given. Oral intake continues to be low. Tired. Review of systems: Was done for constitutional, cardiovascular, GI, pulmonary. relevant finding as above Active Medications Acetaminophen (Tylenol Tab) 650 mg PO Q6HR PRN PRN Reason: Fever and/ or Pain Last Admin: 11/26/19 19:35 Dose: 650 mg Documented by: Allopurinol (Zyloprim) 100 mg PO DAILY [facility] Last Admin: 11/27/19 08:38 Dose: 100 mg Documented by: Amlodipine Besylate (Norvasc) 10 mg PO DAILY [facility] Last Admin: 11/27/19 08:39 Dose: Not Given Documented by: Calcitriol (Rocaltrol) 0.25 mcg PO [facility] Folic Acid (Folic Acid) 1 mg PO DAILY [facility] Last Admin: 11/27/19 08:38 Dose: 1 mg Documented by: Hydralazine HCl (Apresoline) 25 mg PO BID [facility] Last Admin: 11/27/19 08:39 Dose: Not Given Documented by: Sodium Chloride (Saline 0.9%) 1,000 mls @ 130 mls/hr IV .Q7H42M [facility] Last Admin: 11/27/19 16:37 Dose: Not Given Documented by: Cefepime HCl 1 gm/ Sodium (Chloride) 50 mls @ 12.5 mls/hr IVPB Q12H [facility] Last Admin: 11/27/19 11:31 Dose: 12.5 mls/hr Documented by: Linezolid 600 mg/ IV Solution 300 mls @ 150 mls/hr IVPB Q12HR [facility]; Protocol Levothyroxine Sodium (Synthroid) 100 mcg PO DAILY@0630 [facility] Last Admin: 11/27/19 05:54 Dose: 100 mcg Documented by: Ondansetron HCl (Zofran) 4 mg IVP Q6HR PRN PRN Reason: Nausea And Vomiting Voriconazole (Vfend) 200 mg PO BID [facility] Last Admin: 11/27/19 08:38 Dose: 200 mg Documented by: Physical examination: VITAL SIGNS: 98, 83, 18, 11 9/66, 92% on 15 L GENERAL: Laying in bed, short of breath, nasal cannula EYES: Pupils equal. Conjunctiva pale. HEENT: External appearance of nose and ears normal, oral cavity grossly normal. NECK: JVD not raised; masses not palpable. HEART: First and second heart sounds are normal; no edema. LUNGS: Respiratory rate increased, decreased breath sound ABDOMEN: Soft, nontender, liver spleen not palpable, no masses palpable. PSYCH: Alert and oriented x3; mood and affect-anxious INVESTIGATIONS, reviewed in the clinical context: White count 0.2 hemoglobin 6.7 potassium 3.7 bun 42 creatinine 2.0 bicarb 14 Previous testing White count 0.2 hemoglobin 7.5 platelets 20 potassium 4 bun 41 and creatinine 1.70 CRP 174 pro-calcitonin 1.85 Chest x-ray film personally reviewed by me-questionable chronic infiltrate EKG tracing personally reviewed by me-sinus rhythm with left bundle-branch block Assessment: -Neutropenic fever in a patient getting chemotherapy for AML. No obvious source of infection. Empirically on linezolid and cefepime -Acute hypoxic respiratory failure. Text x-ray- question fluid overload. Consider PE. -Pancytopenia secondary to chemotherapy and AML-not improving -Severe anemia from pancytopenia-transfuse another unit of blood -AML -Left bundle-branch block -Chronic kidney disease stage IV, multifactorial -Essential hypertension -Hypothyroid -Metabolic acidosis from renal failure Plan: Patient currently on linezolid and IV cefepime. Did give 1 dose of IV Lasix earlier. We will do ultrasound of lower extremities also order a VQ scan. Because of low platelet cannot be anticoagulated.
--- NOTE | 2019-11-27 17:48 | US ---
EXAMINATION TYPE: US venous doppler duplex LE DATE OF EXAM: 11/27/2019 5:22 PM COMPARISON: NONE CLINICAL HISTORY: Rule out DVT. known PE SIDE PERFORMED: Bilateral TECHNIQUE: The lower extremity deep venous system is examined utilizing real time linear array sonog latoya with graded compression, doppler sonography and color-flow sonography. VESSELS IMAGED: External Iliac Vein (EIV) Common Femoral Vein Deep Femoral Vein Greater Saphenous Vein * Femoral Vein Popliteal Vein Small Saphenous Vein * Proximal Calf Veins (* superficial vessels) Right Leg: Negative for DVT Left Leg: Negative for DVT IMPRESSION: 1. Bilateral lower extremity ultrasound negative for deep venous thrombosis.
[2019-11-27] MEDS: ACETAMINOPHEN TAB 325 MG TAB PO PRN (19:41)
[2019-11-27] MEDS: LINEZOLID 600 MG in DEXTROSE/WATER 1 300ML.BAG IVPB SCH ×2 (20:15→22:54)
[2019-11-28] MEDS: LEVOTHYROXINE 100 MCG TAB PO SCH (05:46)
[2019-11-28 06:05] LABS: Anisocytosis Slight; HCT 26.1 % (34.0-46.0); MCH 29.2 pg (25.0-35.0); MCHC 32.6 g/dL (31.0-37.0); MCV 89.5 fL (80.0-100.0); Mean Platelet Volume 14.1; RBC 2.92 m/uL (3.80-5.40); RDW 16.1 % (11.5-15.5)
[2019-11-28 06:13] LABS: Albumin 2.9 g/dL (3.5-5.0); Calcium 7.9 mg/dL (8.4-10.2); Magnesium 1.4 mg/dL (1.6-2.3); Phosphorus 3.3 mg/dL (2.5-4.5); Potassium 3.4 mmol/L (3.5-5.1); Total Bilirubin 1.1 mg/dL (0.2-1.3); Total Protein 6.1 g/dL (6.3-8.2)
[2019-11-28 06:24] LABS: HGB 8.5 gm/dL (11.4-16.0); Platelet Count 24 k/uL (150-450); WBC 0.4 k/uL (3.8-10.6)
[2019-11-28] MEDS: allopurinoL 100 MG TAB PO SCH (07:22)
[2019-11-28] MEDS: FOLIC ACID 1 MG TAB PO SCH (07:22)
[2019-11-28] MEDS: LINEZOLID 600 MG in DEXTROSE/WATER 1 300ML.BAG IVPB SCH ×2 (07:23→20:24)
[2019-11-28] MEDS: VORICONAZOLE 200 MG TAB PO SCH ×2 (07:23→20:24)
[2019-11-28] MEDS: hydrALAZINE HCL 25 MG TAB PO SCH ×2 (08:27→19:46)
[2019-11-28] MEDS: amLODIPine 10 MG TAB PO SCH (08:27)
[2019-11-28] MEDS: CEFEPIME 1 GM in SODIUM CHLORIDE 0.9% 50 ML IVPB SCH ×2 (11:03→23:26)
[2019-11-28 12:35] LABS: ABG Base Excess -12.2 mmol/L; ABG HCO3 12 mmol/L (21-25); ABG Oxygen Saturation 82.5 % (94-97); ABG PH 7.42 (7.35-7.45); ABG TCO2 13 mmol/L (19-24); Allen Test Performed? Yes
[2019-11-28 12:42] LABS: ABG PCO2 19 mmHg (35-45); ABG PO2 44 mmHg (83-108)
[2019-11-28] MEDS: IPRATROPIUM-ALBUTEROL 3 ML NEB INHALATION SCH ×2 (14:35→20:37)
--- NOTE | 2019-11-28 17:34 | P.PN ---
Progress Note - Text Progress Note Date: 11/28/19 Chief Complaint: Fever History of presenting complaint: This is 74-year-old patient who follows with Dr. Boyd. Oncologist is Dr. Merrill. Chronic stable medical conditions include hypertension, hypothyroid, chronic kidney disease,. Patient has been diagnosed with AML. Has been getting chemotherapy. Patient now presents with decreased appetite nausea and vomiting 1 today. Also had fever. 100.3 documented here. Tired and rundown. Admitted for the same. Started on IV fluids. Denies any sores in the mouth. No diarrhea. No skin changes. Admitted with neutropenic fever. Empirically started on vancomycin and Zosyn. Because of renal function changed to linezolid. Also on cefepime. Patient became short of breath. Given a dose of IV Lasix. Decreased oral intake. Computed tomography scan of the chest nonspecific. Doppler ultrasound of lower extremity negative for DVT. [id number] nasal cannula about 8 L. Decreased appetite. Tired. Minimal cough. Ordered ABGs Review of systems: Was done for constitutional, cardiovascular, GI, pulmonary. relevant finding as above Active Medications Acetaminophen (Tylenol Tab) 650 mg PO Q6HR PRN PRN Reason: Fever and/ or Pain Last Admin: 11/27/19 19:41 Dose: 650 mg Documented by: Albuterol/Ipratropium (Duoneb 0.5 Mg-3 Mg/3 Ml Soln) 3 ml INHALATION RT-QID [facility] Last Admin: 11/28/19 14:35 Dose: 3 ml Documented by: Allopurinol (Zyloprim) 100 mg PO DAILY [facility] Last Admin: 11/28/19 07:22 Dose: 100 mg Documented by: Amlodipine Besylate (Norvasc) 10 mg PO DAILY [facility] Last Admin: 11/28/19 08:27 Dose: Not Given Documented by: Calcitriol (Rocaltrol) 0.25 mcg PO [facility] Folic Acid (Folic Acid) 1 mg PO DAILY [facility] Last Admin: 11/28/19 07:22 Dose: 1 mg Documented by: Hydralazine HCl (Apresoline) 25 mg PO BID [facility] Last Admin: 11/28/19 08:27 Dose: Not Given Documented by: Cefepime HCl 1 gm/ Sodium (Chloride) 50 mls @ 12.5 mls/hr IVPB Q12H [facility] Last Admin: 11/28/19 11:03 Dose: 12.5 mls/hr Documented by: Linezolid 600 mg/ IV Solution 300 mls @ 150 mls/hr IVPB Q12HR [facility]; Protocol Last Admin: 11/28/19 07:23 Dose: 150 mls/hr Documented by: Levothyroxine Sodium (Synthroid) 100 mcg PO DAILY@0630 [facility] Last Admin: 11/28/19 05:46 Dose: 100 mcg Documented by: Ondansetron HCl (Zofran) 4 mg IVP Q6HR PRN PRN Reason: Nausea And Vomiting Voriconazole (Vfend) 200 mg PO BID [facility] Last Admin: 11/28/19 07:23 Dose: 200 mg Documented by: Physical examination: VITAL SIGNS: 96.9, 51, 18, 102 x 51, 91% on 7 L GENERAL: Laying in bed, less short of breath, awake, on nasal cannula EYES: Pupils equal. Conjunctiva pale. HEENT: External appearance of nose and ears normal, oral cavity grossly normal. NECK: JVD not raised; masses not palpable. HEART: First and second heart sounds are normal; no edema. LUNGS: Respiratory rate increased, decreased breath sound ABDOMEN: Soft, nontender, liver spleen not palpable, no masses palpable. PSYCH: Alert and oriented x3; mood and affect-anxious INVESTIGATIONS, reviewed in the clinical context: White count 0.4 hemoglobin 8.5 platelets 24 potassium 3.4 creatinine 1.8 ABG-pCO2 19 pO2 44 on room air Previous testing White count 0.2 hemoglobin 7.5 platelets 20 potassium 4 bun 41 and creatinine 1 .70 CRP 174 pro-calcitonin 1.85 Chest x-ray film personally reviewed by me-questionable chronic infiltrate EKG tracing personally reviewed by me-sinus rhythm with left bundle-branch block Ultrasound lower extremity-negative for DVT Computed tomography scan of the chest-without contrast small bilateral pleural effusion with compressive atelectasis bilateral apical thickening. Assessment: -Neutropenic fever in a patient getting chemotherapy for AML. No obvious source of infection. Empirically on linezolid and cefepime-improving -Acute hypoxic respiratory failure. Chest x-ray- question fluid overload. Doppler ultrasound negative for DVT.-Slow to respond on 7 L nasal cannula -Pancytopenia secondary to chemotherapy and slow to respond -Severe anemia from pancytopenia-received 1 unit of PRBC -AML -Left bundle-branch block -Chronic kidney disease stage IV, multifactorial -Essential hypertension -Hypothyroid -Metabolic acidosis from renal failure-slow to respond Plan: Patient currently on linezolid and IV cefepime. Continue with oxygen. Use incentive spirometry. Get a pulmonary consultation. Encouraged oral intake.
--- NOTE | 2019-11-29 00:43 | PN ---
PROGRESS NOTE DATE OF SERVICE: 11/28/2019 REASON FOR FOLLOWUP: Febrile neutropenia and possible pneumonia. INTERVAL HISTORY: The patient is currently afebrile. The patient is breathing more comfortably. Oxygen Requirement is down to 7 L. The patient denies having chest pain. She did have a cough, but not bringing up any sputum. No nausea, no vomiting. No abdominal pain or diarrhea. PHYSICAL EXAMINATION: Blood pressure 102/51 with pulse of 51, temperature 96.9. She is 94% on 7 L nasal cannula. General description is an elderly female lying in bed in no distress. RESPIRATORY SYSTEM: Unlabored breathing, decreased breath sounds at the bases. No wheeze. HEART: S1, S2. Regular rate and rhythm. ABDOMEN: Soft, no tenderness. LABS: Hemoglobin 8.5, white count 0.4, BUN of 47, creatinine 1.80. Blood culture has been negative. Urine is negative. CT chest did show some bilateral effusion and does compressive atelectasis, no definite consolidation. DIAGNOSTIC IMPRESSION AND PLAN: Patient with febrile neutropenia. Initial concern was for a line infection; however, blood culture has been negative. With sputum and respiratory symptoms, CT chest was done with some compressive atelectasis but no definite consolidation. The patient's fever responded to the cefepime and Zyvox to continue while monitoring clinical course closely. MMODL / IJN: [id number] / MTDD
[2019-11-29] MEDS: LEVOTHYROXINE 100 MCG TAB PO SCH (06:10)
[2019-11-29 06:37] LABS: HCT 27.7 % (34.0-46.0); MCHC 32.3 g/dL (31.0-37.0); MCV 89.6 fL (80.0-100.0); Mean Platelet Volume 16.3; RBC 3.09 m/uL (3.80-5.40); RDW 15.9 % (11.5-15.5)
[2019-11-29 06:42] LABS: Albumin 2.7 g/dL (3.5-5.0); Calcium 7.5 mg/dL (8.4-10.2); Magnesium 1.3 mg/dL (1.6-2.3); Phosphorus 3.1 mg/dL (2.5-4.5); Platelet Count 20 k/uL (150-450); Potassium 3.1 mmol/L (3.5-5.1); Total Bilirubin 1.3 mg/dL (0.2-1.3); Total Protein 5.9 g/dL (6.3-8.2); WBC 0.4 k/uL (3.8-10.6)
[2019-11-29 07:05] LABS: Crenated RBC Present; Large Platelets Present
[2019-11-29] MEDS ORDERED: Potassium Replacement Protocol 1 EACH MISC MISCELLANE PRN (07:08)
[2019-11-29] MEDS: IPRATROPIUM-ALBUTEROL 3 ML NEB INHALATION SCH ×4 (07:34→19:56)
[2019-11-29] MEDS: LINEZOLID 600 MG in DEXTROSE/WATER 1 300ML.BAG IVPB SCH ×2 (07:57→19:59)
[2019-11-29] MEDS: VORICONAZOLE 200 MG TAB PO SCH ×2 (07:58→20:00)
[2019-11-29] MEDS: POTASSIUM CHLORIDE ER 20 MEQ TAB.ER PO SCH ×2 (07:59→11:12)
[2019-11-29] MEDS: allopurinoL 100 MG TAB PO SCH (07:59)
[2019-11-29] MEDS: FOLIC ACID 1 MG TAB PO SCH (08:00)
[2019-11-29] MEDS: ACETAMINOPHEN TAB 325 MG TAB PO PRN (08:05)
[2019-11-29] MEDS: hydrALAZINE HCL 25 MG TAB PO SCH ×2 (11:12→19:31)
[2019-11-29] MEDS: amLODIPine 10 MG TAB PO SCH (11:12)
[2019-11-29] MEDS ORDERED: FUROSEMIDE 10 MG/ML 4 ML VIAL IV STA (12:44)
--- NOTE | 2019-11-29 12:45 | P.CNPUL ---
History of Present Illness Consult date: 11/29/19 Requesting physician: Graham Fishman Reason for consult: dyspnea Chief complaint: Weakness, dyspnea, acute hypoxic respiratory failure History of present illness: 84-year-old white female patient of Dr. Boyd, with history of acute myeloid leukemia under the care of Dr. Chavez recently diagnosed in the August 2019, receiving chemotherapy, recently completing a 5 day cycle Dacogen and Ventoclax. Patient's course was complicated by to hospital hospitalizations for weakness and transfusions. She presented to the hospital on 11/25/2019 with a fever, pancytopenia, weakness, no nausea, no vomiting no chest pain, mild shortness of breath, no cough or congestion or diarrhea. Did have a fever of 100.3F on admission, with the T-max of 101F on successive vital signs. Chest x-ray showed lower lobe mild pulmonary interstitial infiltrates. Urinalysis was within normal limits. Patient was started on Zosyn and vancomycin initially. Patient blood work showed, White blood cell, 0.2, hemoglobin of 7.5, platelet count is 20, INR is 1.4, Sodium is 131, potassium is 4.0, chloride is 104, CO2 is 17, BUN is 41, creatinine is 1.7, pro calcitonin was elevated to 1.85, CRP was 174, LDH was within normal limits at 547, LFTs were within normal limits. Plasma lactic acid was 0.5. Covid 19 PCR was negative. Blood and urine cultures have shown no growth since admission. ID service is following, currently pneumatic coverage is with cefepime and Zyvox, in addition to voriconazole. On 11/27/2019 CT chest without contrast showed small bilateral pleural effusions with adjacent compressive atelectasis, bilateral apical thickening. Patient developed worsening hypoxic respiratory failure due to weekend, requiring as much as 15 L/m FiO2, blood gas showed pO2 44, pCO2 of 19, and pH of 7.42. Patie nt was given a dose of IV Lasix, lower extremity dopplers were negative for DVT. We were asked to see the patient in consultation for acute hypoxic respiratory failure Review of Systems All systems: negative Constitutional: Denies chills, Denies fever Eyes: denies blurred vision, denies pain Ears, nose, mouth and throat: Denies headache, Denies sore throat Cardiovascular: Denies chest pain, Denies shortness of breath Respiratory: Reports dyspnea, Denies cough Gastrointestinal: Denies abdominal pain, Denies diarrhea, Denies nausea, Denies vomiting Genitourinary: Denies dysuria, Denies hematuria Musculoskeletal: Denies myalgias Integumentary: Denies pruritus, Denies rash Neurological: Denies numbness, Denies weakness Psychiatric: Denies anxiety, Denies depression Endocrine: Denies fatigue, Denies weight change Past Medical History Past Medical History: Blood Disorder, Cancer, Hypertension, Renal Disease Additional Past Medical History / Comment(s): Anemia, Stage 4 kidney disease, AML- started inpt. chemo 11/17/19- History of Any Multi-Drug Resistant Organisms: None Reported Past Surgical History: Appendectomy, Hysterectomy Past Anesthesia/Blood Transfusion Reactions: No Reported Reaction Past Psychological History: Depression Smoking Status: Never smoker Past Alcohol Use History: None Reported Past Drug Use History: None Reported - Past Family History Father Family Medical History: Cancer Additional Family Medical History / Comment(s): esophageal cancer Mother Family Medical History: Hypertension Medications and Allergies Home Medications Medication Instructions Recorded Confirmed Type Folate 666 mcg PO DAILY 09/08/19 11/25/19 History allopurinoL [Zyloprim] 100 mg PO DAILY 09/08/19 11/25/19 History calcitrioL [Rocaltrol] 0.25 mcg PO TU 09/08/19 11/25/19 History Venetoclax [Venclexta] 200 mg PO DAILY 09/27/19 11/25/19 History Levothyroxine Sodium [Synthroid] 100 mcg PO DAILY@0630 #30 tab 10/25/19 11/25/19 Rx amLODIPine [Norvasc] 10 mg PO DAILY #30 tab 10/25/19 11/25/19 Rx Acetaminophen Tab [Tylenol] 325 - 650 mg PO Q4H PRN 11/19/19 11/25/19 History hydrALAZINE HCL [Apresoline] 25 mg PO BID 11/19/19 11/25/19 History Voriconazole 200 mg PO BID 11/25/19 11/25/19 History Allergies Allergy/AdvReac Type Severity Reaction Status Date / Time No Known Allergies Allergy Verified 11/25/19 08:30 Physical Exam Vitals: Vital Signs Temp Pulse Pulse Resp BP Pulse Ox 11/29/19 11:27 40 L 11/29/19 11:17 40 L 11/29/19 08:00 45 L 11/29/19 07:49 80 11/29/19 07:35 80 11/29/19 07:00 98.4 F 47 L 17 139/68 95 11/29/19 01:10 98.1 F 48 L 16 124/61 93 L 11/28/19 18:55 97.8 F 52 L 16 124/47 94 L 11/28/19 15:00 96.9 F L 51 L 18 102/51 94 L 11/28/19 14:46 84 11/28/19 14:36 84 11/28/19 12:46 91 L Intake and Output 11/28/19 11/29/19 11/29/19 22:59 06:59 14:59 Intake Total 300 350 Balance 300 350 Intake: Intake, IV Titration 300 350 Amount Cefepime 1 gm In Sodium 50 Chloride 0.9% 50 ml @ 12. 5 mls/hr IVPB Q12H [facility] Rx #:[id number] Linezolid 600 mg In 300 300 Dextrose/Water 1 300ml. bag @ 150 mls/hr IVPB Q12HR [facility] Rx#:[id number] Other: Voiding Method Toilet Toilet Toilet # Voids 2 4 GENERAL EXAM: Alert, very pleasant 74-year-old white female, on 5 L of oxygen with sats of 95% comfortable in no apparent distress. HEAD: Normocephalic/atraumatic. EYES: Normal reaction of pupils, equal size. Conjunctiva pink, sclera white. NOSE: Clear with pink turbinates. THROAT: No erythema or exudates. NECK: No masses, no JVD, no thyroid enlargement, no adenopathy. CHEST: No chest wall deformity. Symmetrical expansion. LUNGS: Equal air entry with diminished breath sounds at the bases, with crackles CVS: Regular rate and rhythm, normal S1 and S2, no gallops, no murmurs, no rubs ABDOMEN: Soft, nontender. No hepatosplenomegaly, normal bowel sounds, no guarding or rigidity. EXTREMITIES: No clubbing, no edema, no cyanosis, 2+ pulses and upper and lower extremities. MUSCULOSKELETAL: Muscle strength and tone normal. SPINE: No scoliosis or deformity SKIN: No rashes CENTRAL NERVOUS SYSTEM: Alert and oriented -3. No focal deficits, tone is normal in all 4 extremities. PSYCHIATRIC: Alert and oriented -3. Appropriate affect. Intact judgment and insight. Results - Laboratory Findings CBC and BMP: 11/29/19 06:20 11/29/19 06:20 ABG ABG pH 7.42 (7.35-7.45) 11/28/19 12:23 ABG pCO2 19 mmHg (35-45) L* 11/28/19 12:23 ABG pO2 44 mmHg (83-108) L* 11/28/19 12:23 ABG O2 Saturation 82.5 % (94-97) L 11/28/19 12:23 PT/INR, D-dimer PT 12.1 sec (9.0-12.0) H 11/26/19 11:45 INR 1.2 (<1.2) H 11/26/19 11:45 Abnormal lab findings: Abnormal Labs 11/25/19 11/25/19 11/25/19 00:26 00:26 00:26 WBC RBC Hgb Hct RDW Plt Count PT 13.7 H INR 1.4 H APTT 36.8 H ABG pCO2 ABG pO2 ABG HCO3 ABG Total CO2 ABG O2 Saturation Sodium Potassium Chloride Carbon Dioxide BUN Creatinine Plasma Lactic Acid Campbell 0.5 L Uric Acid Calcium Magnesium C-Reactive Protein Total Protein Albumin Procalcitonin 1.85 H Urine Appearance Urine Protein Urine Blood Amorphous Sediment Urine Bacteria Crossmatch 11/25/19 11/25/19 11/26/19 01:10 01:10 06:30 WBC 0.2 L* RBC 2.46 L Hgb 7.5 L D Hct 21.9 L RDW 15.6 H Plt Count 20 L PT INR APTT ABG pCO2 ABG pO2 ABG HCO3 ABG Total CO2 ABG O2 Saturation Sodium 131 L Potassium Chloride Carbon Dioxide 17 L BUN 41 H Creatinine 1.70 H Plasma Lactic Acid Campbell Uric Acid Calcium 7.9 L Magnesium 1.3 L C-Reactive Protein 174.2 H Total Protein Albumin 3.3 L Procalcitonin Urine Appearance Cloudy H Urine Protein 1+ H Urine Blood Trace H Amorphous Sediment Rare H Urine Bacteria Occasional H Crossmatch 11/26/19 11/26/19 11/26/19 07:57 07:57 07:57 WBC 0.2 L* RBC 2.19 L Hgb 6.5 L* Hct 20.1 L RDW 15.9 H Plt Count 16 L* PT INR APTT ABG pCO2 ABG pO2 ABG HCO3 ABG Total CO2 ABG O2 Saturation Sodium 131 L Potassium Chloride Carbon Dioxide 14 L BUN 38 H Creatinine 2.01 H Plasma Lactic Acid Campbell Uric Acid Calcium 7.6 L Magnesium C-Reactive Protein Total Protein Albumin Procalcitonin Urine Appearance Urine Protein Urine Blood Amorphous Sediment Urine Bacteria Crossmatch See Detail 11/26/19 11/26/19 11/27/19 07:57 11:45 06:00 WBC RBC Hgb Hct RDW Plt Count PT 12.1 H INR 1.2 H APTT 37.0 H ABG pCO2 ABG pO2 ABG HCO3 ABG Total CO2 ABG O2 Saturation Sodium 136 L Potassium Chloride 113 H Carbon Dioxide 14 L BUN 42 H Creatinine 2.00 H Plasma Lactic Acid Campbell Uric Acid 3.5 L Calcium 7.6 L Magnesium 1.4 L C-Reactive Protein Total Protein 5.7 L Albumin 2.6 L Procalcitonin Urine Appearance Urine Protein Urine Blood Amorphous Sediment Urine Bacteria Crossmatch 11/27/19 11/28/19 11/28/19 06:00 05:50 05:50 WBC 0.2 L* 0.4 L* RBC 2.25 L 2.92 L Hgb 6.7 L* 8.5 L D Hct 20.6 L 26.1 L RDW 16.2 H 16.1 H Plt Count 20 L 24 L PT INR APTT ABG pCO2 ABG pO2 ABG HCO3 ABG Total CO2 ABG O2 Saturation Sodium 133 L Potassium 3.4 L Chloride 111 H Carbon Dioxide 14 L BUN 47 H Creatinine 1.80 H Plasma Lactic Acid Campbell Uric Acid Calcium 7.9 L Magnesium 1.4 L C-Reactive Protein Total Protein 6.1 L Albumin 2.9 L Procalcitonin Urine Appearance Urine Protein Urine Blood Amorphous Sediment Urine Bacteria Crossmatch 11/28/19 11/29/19 11/29/19 12:23 06:20 06:20 WBC 0.4 L* RBC 3.09 L Hgb 9.0 L Hct 27.7 L RDW 15.9 H Plt Count 20 L PT INR APTT ABG pCO2 19 L* ABG pO2 44 L* ABG HCO3 12 L ABG Total CO2 13 L ABG O2 Saturation 82.5 L Sodium 136 L Potassium 3.1 L Chloride 112 H Carbon Dioxide 16 L BUN 45 H Creatinine 1.71 H Plasma Lactic Acid Campbell Uric Acid Calcium 7.5 L Magnesium 1.3 L C-Reactive Protein Total Protein 5.9 L Albumin 2.7 L Procalcitonin Urine Appearance Urine Protein Urine Blood Amorphous Sediment Urine Bacteria Crossmatch - Diagnostic Findings Chest x-ray: report reviewed, image reviewed CT scan - chest: report reviewed, image reviewed Additional studies: Lower extremity Dopplers reviewed, EKG reviewed Assessment and Plan Plan: Assessment: #1. Acute hypoxic respiratory failure related to fluid overload, CT of the chest showing bilateral pleural effusions with adjacent atelectasis, oxygenation has improved with a dose of IV Lasix, she still requiring high flow oxygen currently at 8 L/m #2. Febrile neutropenia #3. Acute myeloid leukemia, status post induction chemotherapy #4. Hypertension #5. Hypothyroidism #6. Chronic kidney disease, stage IV #7. History of gout #8. Previous history of ITP Plan: Chest x-ray CT chest reviewed with Dr. Maya, patient was seen and evaluated by Dr. Maya, recommend an additional dose of Lasix 40 mg 1, no plans for thoracentesis at this time especially in view of low platelet count. She seems to have responded to a single dose of Lasix given yesterday, will given and the dose today, continue with antibiotics per ID service recommendations, continue weaning FiO2, repeat chest x-ray in the morning. I performed a history & physical examination of the patient and discussed their management with my nurse practitioner, Silvina Hardwick. I reviewed the nurse practitioner's note and agree with the documented findings and plan of care. Lung sounds are positive for diminished breath sounds. The findings and the impression was discussed with the patient. I attest to the documentation by the nurse practitioner. Time with Patient: Greater than 30
[2019-11-29] MEDS: CEFEPIME 1 GM in SODIUM CHLORIDE 0.9% 50 ML IVPB SCH ×2 (12:49→23:16)
--- NOTE | 2019-11-29 13:45 | P.PN ---
Subjective Progress Note Date: 11/29/19 Principal diagnosis: Febrile neutropenia, AML In follow-up today patient is voicing her frustration with repeat hospital admissions and spending so much time in the hospital. I reminded pt that treatment is voluntary, she can discontinue treatment at any time she would like. I have just asked her to make sure that she fully understands the implications of her decisions and that she understands the prognosis with and without treatment-including realistic expectations of treatment, ie cure vs disease mgmt. She verbalized understanding. No recurrent fevers, nausea, vomiting, appetite is fair to poor, no cough, chest pain, abdominal pain or cramping, diarrhea or constipation, dysuria, hematuria, swelling of the legs or pain. Objective - Vital Signs Vital signs: Vital Signs Temp 98.4 F 11/29/19 07:00 Pulse 40 L 11/29/19 11:27 Resp 17 11/29/19 07:00 BP 139/68 11/29/19 07:00 Pulse Ox 95 11/29/19 07:00 Intake & Output 11/28/19 11/29/19 11/29/19 18:59 06:59 18:59 Intake Total 650 Balance 650 Weight 42.638 kg Intake: Intake, IV Titration 650 Amount Cefepime 1 gm In Sodium 50 Chloride 0.9% 50 ml @ 12. 5 mls/hr IVPB Q12H [facility] Rx #:[id number] Linezolid 600 mg In 600 Dextrose/Water 1 300ml. bag @ 150 mls/hr IVPB Q12HR [facility] Rx#:[id number] Other: Voiding Method Toilet Toilet Toilet # Voids 4 - Constitutional General appearance: Present: cooperative, mild distress, thin - EENT Eyes: Present: EOMI ENT: Present: hearing grossly normal, normal oropharynx - Neck Neck: Absent: lymphadenopathy - Respiratory Respiratory: right: diminished (lower), bilateral: rales (scattered posterior bases) - Cardiovascular Heart sounds: normal: S1, S2 Abnormal Heart Sounds: Absent: systolic murmur, diastolic murmur, rub, S3 Gallop , S4 Gallop, click, other - Peripheral edema leg Peripheral Edema: bilateral: None - Gastrointestinal General gastrointestinal: Present: normal bowel sounds, soft - Neurologic Neurologic: Present: CNII-XII intact - Musculoskeletal Musculoskeletal: Present: generalized weakness - Psychiatric Psychiatric Comment(s): angry, depressed Psychiatric: Present: A&O x's 3, intact judgment & insight - Labs CBC & Chem 7: 11/29/19 06:20 11/29/19 06:20 Labs: Abnormal Lab Results - Last 24 Hours (Table) 11/26/19 11/29/19 11/29/19 Range/Units 07:57 06:20 06:20 WBC 0.4 L* (3.8-10.6) k/uL RBC 3.09 L (3.80-5.40) m/uL Hgb 9.0 L (11.4-16.0) gm/dL Hct 27.7 L (34.0-46.0) % RDW 15.9 H (11.5-15.5) % Plt Count 20 L (150-450) k/uL Sodium 136 L (137-145) mmol/L Potassium 3.1 L (3.5-5.1) mmol/L Chloride 112 H (98-107) mmol/L Carbon Dioxide 16 L (22-30) mmol/L BUN 45 H (7-17) mg/dL Creatinine 1.71 H (0.52-1.04) mg/dL Calcium 7.5 L (8.4-10.2) mg/dL Magnesium 1.3 L (1.6-2.3) mg/dL Total Protein 5.9 L (6.3-8.2) g/dL Albumin 2.7 L (3.5-5.0) g/dL Crossmatch See Detail Microbiology - Last 24 Hours (Table) 11/25/19 00:26 Blood Culture - Preliminary Blood No Growth after 96 hours 11/26/19 11:45 Blood Culture - Preliminary Blood No Growth after 48 hours 11/26/19 11:47 Blood Culture - Preliminary Blood No Growth after 48 hours - Imaging and Cardiology CT scan - chest: report reviewed Assessment and Plan (1) Febrile neutropenia Narrative/Plan: Pancultures are negative at this point, ID consulted, empiric antibiotics continue, fever pattern has abated. Current Visit: Yes Status: Acute Priority: High Code(s): D70.9 - NEUTRO PENIA, UNSPECIFIED; R50.81 - FEVER PRESENTING WITH CONDITIONS CLASSIFIED ELSEWHERE SNOMED Code(s): 032101718 (2) Acute myeloid leukemia Narrative/Plan: Patient's last treatment was 11/03. Her oral dental complex the has been held. Patient was told to resume then collect Salwa after completing her full course of antibiotics. Patient has follow-up appointment with Dr. Chavez in the morning and there is another one on the schedule for about 2 weeks. Current Visit: Yes Status: Acute Priority: High Code(s): C92.00 - ACUTE MYELOBLASTIC LEUKEMIA, NOT HAVING ACHIEVED REMISSION SNOMED Code(s): 00969810 (3) Pancytopenia Narrative/Plan: Secondary to disease and treatment of disease. We will continue to monitor the patient's CBC in the outpatient setting, transfusions as needed. Current Visit: Yes Status: Acute Priority: High Code(s): D61.818 - OTHER PANCYTOPENIA SNOMED Code(s): 259864043
--- NOTE | 2019-11-29 13:59 | XR ---
EXAMINATION TYPE: XR chest 1V portable DATE OF EXAM: 11/29/2019 COMPARISON: 11/27/2019 INDICATION: Follow-up TECHNIQUE: Single frontal view of the chest is obtained. FINDINGS: The heart size is normal. The pulmonary vasculature is normal. Infiltrate is present at the right base. Some mild infiltrate may be at the posterior medial left dillon g base. PICC line enters on the right with the tip in the distal superior vena cava region. Pleural e ffusions may be improving. IMPRESSION: 1. Small bilateral pleural effusions are present. 2. Right lower lobe infiltrate. Small posterior medial left lower lobe infiltrate may be present.
--- NOTE | 2019-11-29 20:28 | P.PN ---
Progress Note - Text Progress Note Date: 11/29/19 Chief Complaint: Fever History of presenting complaint: This is 74-year-old patient who follows with Dr. Boyd. Oncologist is Dr. Merrill. Chronic stable medical conditions include hypertension, hypothyroid, chronic kidney disease,. Patient has been diagnosed with AML. Has been getting chemotherapy. Patient now presents with decreased appetite nausea and vomiting 1 today. Also had fever. 100.3 documented here. Tired and rundown. Admitted for the same. Started on IV fluids. Denies any sores in the mouth. No diarrhea. No skin changes. Admitted with neutropenic fever. Empirically started on vancomycin and Zosyn. Because of renal function changed to linezolid. Also on cefepime. Patient became short of breath. Given a dose of IV Lasix. Decreased oral intake. Computed tomography scan of the chest nonspecific. Doppler ultrasound of lower extremity negative for DVT. Today-breathing somewhat better. On 5 L of nasal cannula. Appetite still decreased. On IV antibiotics. Review of systems: Was done for constitutional, cardiovascular, GI, pulmonary. relevant finding as above Active Medications Acetaminophen (Tylenol Tab) 650 mg PO Q6HR PRN PRN Reason: Fever and/ or Pain Last Admin: 11/29/19 08:05 Dose: 650 mg Documented by: Albuterol/Ipratropium (Duoneb 0.5 Mg-3 Mg/3 Ml Soln) 3 ml INHALATION RT-QID [facility] Last Admin: 11/29/19 19:56 Dose: 3 ml Documented by: Allopurinol (Zyloprim) 100 mg PO DAILY [facility] Last Admin: 11/29/19 07:59 Dose: 100 mg Documented by: Amlodipine Besylate (Norvasc) 10 mg PO DAILY [facility] Last Admin: 11/29/19 11:12 Dose: Not Given Documented by: Calcitriol (Rocaltrol) 0.25 mcg PO [facility] [place] Folic Acid (Folic Acid) 1 mg PO DAILY [facility] Last Admin: 11/29/19 08:00 Dose: 1 mg Documented by: Hydralazine HCl (Apresoline) 25 mg PO BID [facility] Last Admin: 11/29/19 19:31 Dose: Not Given Documented by: Cefepime HCl 1 gm/ Sodium (Chloride) 50 mls @ 12.5 mls/hr IVPB Q12H [facility] Last Admin: 11/29/19 12:49 Dose: 12.5 mls/hr Documented by: Linezolid 600 mg/ IV Solution 300 mls @ 150 mls/hr IVPB Q12HR [facility]; Protocol Last Admin: 11/29/19 19:59 Dose: 150 mls/hr Documented by: Levothyroxine Sodium (Synthroid) 100 mcg PO DAILY@0630 [facility] Last Admin: 11/29/19 06:10 Dose: 100 mcg Documented by: Miscellaneous Information (Potassium Per Protocol) 1 each MISCELLANE DAILY PRN; Protocol PRN Reason: Per Protocol Ondansetron HCl (Zofran) 4 mg IVP Q6HR PRN PRN Reason: Nausea And Vomiting Voriconazole (Vfend) 200 mg PO BID [facility] Last Admin: 11/29/19 20:00 Dose: 200 mg Documented by: Physical examination: VITAL SIGNS: 98.4, 47, 17, 139 but 68, 95% on 5 L GENERAL: Laying in bed, breathing better awake, on nasal cannula EYES: Pupils equal. Conjunctiva pale. HEENT: External appearance of nose and ears normal, oral cavity grossly normal. NECK: JVD not raised; masses not palpable. HEART: First and second heart sounds are normal; no edema. LUNGS: Respiratory rate increased, decreased breath sound ABDOMEN: Soft, nontender, liver spleen not palpable, no masses palpable. PSYCH: Alert and oriented x3; mood and affect-anxious INVESTIGATIONS, reviewed in the clinical context: White count 0.4 hemoglobin 9 platelets 20 potassium 3.1 creatinine 1.71 Previous testing White count 0.2 hemoglobin 7.5 platelets 20 potassium 4 bun 41 and creatinine 1.70 CRP 174 pro-calcitonin 1.85 Chest x-ray film personally reviewed by me-questionable chronic infiltrate EKG tracing personally reviewed by me-sinus rhythm with left bundle-branch block Ultrasound lower extremity-negative for DVT Computed tomography scan of the chest-without contrast small bilateral pleural effusion with compressive atelectasis bilateral apical thickening. ABG-pCO2 19 pO2 44 on room air Assessment: -Neutropenic fever in a patient getting chemotherapy for AML. No obvious source of infection. Empirically on linezolid and cefepime-improving -Acute hypoxic respiratory failure. Chest x-ray- question fluid overload. Doppler ultrasound negative for DVT.-Slow to respond on 5 L nasal cannula -Pancytopenia secondary to chemotherapy and slow to respond -Severe anemia from pancytopenia-received 1 unit of PRBC -AML -Left bundle-branch block -Chronic kidney disease stage IV, multifactorial -Essential hypertension -Hypothyroid -Metabolic acidosis from renal failure-slow to respond Plan: Patient currently on linezolid and IV cefepime. Continue with oxygen. On 5 L. Encouraged patient to increase oral activity. Encouraged to be up in a chair.
--- NOTE | 2019-11-29 22:21 | PN ---
PROGRESS NOTE DATE OF SERVICE: 11/29/2019 REASON FOR FOLLOWUP: Febrile neutropenia and pneumonia. INTERVAL HISTORY: The patient is currently afebrile. The patient is breathing more comfortably. Denies having chest pain. Did have cough, but not bringing up any sputum. No chest pain. No nausea, vomiting, abdominal pain or diarrhea. PHYSICAL EXAMINATION: Blood pressure 126/76, pulse of 63, temperature 97.7. She is 98% on 5 L nasal cannula. General description is an elderly female lying in bed in no distress. RESPIRATORY SYSTEM: Unlabored breathing with decreased breath sounds at the base. No wheeze. HEART: S1, S2. Regular rate and rhythm. ABDOMEN: Soft. No tenderness. EXTREMITIES: No edema of the feet. LABS: Hemoglobin 9, white count 0.4, BUN of 45, creatinine 1.71. DIAGNOSTIC IMPRESSION AND PLAN: Patient with febrile neutropenia and concern for pneumonia. We are waiting for the culture to finalize. Continue with cefepime and Zyvox. Monitor clinical course closely. MMODL / IJN: [id number] /
[2019-11-29] MEDS: SODIUM BICARBONATE TAB 650 MG TAB PO SCH (23:16)
[2019-11-30] MEDS: LEVOTHYROXINE 100 MCG TAB PO SCH (05:57)
--- NOTE | 2019-11-30 06:50 | XR ---
EXAMINATION TYPE: XR chest 1V portable DATE OF EXAM: 11/30/2019 CLINICAL HISTORY: Difficulty breathing progress study. TECHNIQUE: Single AP portable upright view of the chest is obtained. COMPARISON: Chest x-ray from one day earlier and older studies. The chest 3 days ago. FINDINGS: Stable right-sided PICC line.Background chronic emphysematous change with bibasilar opacit ies. Cardiac silhouette size stable and upper limits of normal with atherosclerotic thoracic aorta. O sseous structures are intact. Somewhat low lung volumes redemonstrated. IMPRESSION: Small bilateral pleural effusions with right greater than left bibasilar acute atelectasi s and/or infiltrate. No significant change from one day earlier.
[2019-11-30 07:23] LABS: Calcium 7.9 mg/dL (8.4-10.2); Potassium 3.3 mmol/L (3.5-5.1)
[2019-11-30] MEDS: IPRATROPIUM-ALBUTEROL 3 ML NEB INHALATION SCH ×4 (07:31→19:42)
[2019-11-30] MEDS: amLODIPine 10 MG TAB PO SCH (09:09)
[2019-11-30] MEDS: hydrALAZINE HCL 25 MG TAB PO SCH ×2 (09:09→21:13)
[2019-11-30] MEDS: FOLIC ACID 1 MG TAB PO SCH (09:10)
[2019-11-30] MEDS: allopurinoL 100 MG TAB PO SCH (09:10)
[2019-11-30] MEDS: SODIUM BICARBONATE TAB 650 MG TAB PO SCH ×3 (09:10→21:13)
[2019-11-30] MEDS: VORICONAZOLE 200 MG TAB PO SCH ×2 (09:10→21:14)
[2019-11-30] MEDS: LINEZOLID 600 MG in DEXTROSE/WATER 1 300ML.BAG IVPB SCH (09:16)
--- NOTE | 2019-11-30 10:16 | P.CRDCN ---
History of Present Illness Consult date: 11/30/19 History of present illness: CHIEF COMPLAINT: Abnormal EKG/bradycardia HISTORY OF PRESENT ILLNESS: 74-year-old female with history of acute myeloid leukemia who is currently admitted to the hospital secondary to neutropenic fev er and acute hypoxic respiratory failure. Patient last received chemotherapy in October 2019. Cardiology was consulted for bradycardia. 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 Patient examined this morning at the bedside. She reports feeling weak but denies any other complaints. Denies chest pain or pressure. Denies shortness of breath. Denies lightheadedness or dizziness. DIAGNOSTICS: EKG reveals third-degree heart block Chest xray small bilateral pleural effusions with right greater than left bibasilar acute atelectasis and/or infiltrate. Laboratory data: WBC 0.4. Hemoglobin 9.0. Platelet count 20. sodium 137. Potassium 3.3. BUN 50. Creatinine 1.50. Current home cardiac medications include hydralazine 25 mg twice a day and Norvasc 10 mg daily Echocardiogram completed in September 2019 reveals ejection fraction between 55 and 60%, mild aortic stenosis, moderate mitral regurgitation, mild tricuspid regurgitation, and borderline pulmonary hypertension. REVIEW OF SYSTEMS: CONSTITUTIONAL: Denies fever or chills. Reports weakness. HEENT: Denies blurred vision, vision changes, or eye pain. Denies hemoptysis CARDIOVASCULAR: Denies chest pain, orthopnea, PND or palpitations RESPIRATORY: No shortness of breath. GASTROINTESTINAL: Denies abdominal pain. Denies nausea or vomiting. HEMATOLOGIC: Denies bleeding disorders. GENITOURINARY: Denies any blood in urine. SKIN: Denies pruitis. Denies rash. PHYSICAL EXAM: VITAL SIGNS: Reviewed. GENERAL: Well-developed in no acute distress. HEENT: Head is normocephalic. Pupils are equal, round. Sclerae anicteric. Mucous membranes of the mouth are moist. Neck supple. No JVD or thyromegaly LUNGS: Respirations even and unlabored. Lungs essentially clear to auscultation bilaterally. HEART: Regular rate and rhythm. S1 and S2 heard. Systolic murmur. ABDOMEN: Soft. Nondistended. Nontender. EXTREMITIES: Normal range of motion. No clubbing or cyanosis. Peripheral pulses intact. No lower extremity edema NEUROLOGIC: Awake and alert. Oriented x 3. ASSESSMENT: 1. Complete heart block, asymptomatic 2. Hypertension 3. Acute myeloid leukemia, receiving chemotherapy 4. Pancytopenia 5. Mild aortic stenosis PLAN: -Check TSH and free T4 -Patient is high risk for any intervention at this time due to recent chemotherapy and pancytopenia. Patient is currently asymptomatic with complete heart block. We will continue to monitor patient at this time. -Further recommendations pending patient course Nurse practitioner note has been reviewed by physician. Signing provider agrees with the documented findings, assessment, and plan of care. Past Medical History Past Medical History: Blood Disorder, Cancer, Hypertension, Renal Disease Additional Past Medical History / Comment(s): Anemia, Stage 4 kidney disease, AML- started inpt. chemo 11/17/19- History of Any Multi-Drug Resistant Organisms: None Reported Past Surgical History: Appendectomy, Hysterectomy Past Anesthesia/Blood Transfusion Reactions: No Reported Reaction Past Psychological History: Depression Smoking Status: Never smoker Past Alcohol Use History: None Reported Past Drug Use History: None Reported - Past Family History Father Family Medical History: Cancer Additional Family Medical History / Comment(s): esophageal cancer Mother Family Medical History: Hypertension Medications and Allergies Home Medications Medication Instructions Recorded Confirmed Type Folate 666 mcg PO DAILY 09/08/19 11/25/19 History allopurinoL [Zyloprim] 100 mg PO DAILY 09/08/19 11/25/19 History calcitrioL [Rocaltrol] 0.25 mcg PO TU 09/08/19 11/25/19 History Levothyroxine Sodium [Synthroid] 100 mcg PO DAILY@0630 #30 tab 10/25/19 11/25/19 Rx amLODIPine [Norvasc] 10 mg PO DAILY #30 tab 10/25/19 11/25/19 Rx Acetaminophen Tab [Tylenol] 325 - 650 mg PO Q4H PRN 11/19/19 11/25/19 History hydrALAZINE HCL [Apresoline] 25 mg PO BID 11/19/19 11/25/19 History Voriconazole 200 mg PO BID 11/25/19 11/25/19 History Venetoclax [Venclexta] 100 mg PO DAILY #3 tablet 11/29/19 Rx Allergies Allergy/AdvReac Type Severity Reaction Status Date / Time No Known Allergies Allergy Verified 11/25/19 08:30 Physical Exam Vitals: Vital Signs Temp Pulse Pulse Resp BP Pulse Ox 11/30/19 07:30 97 11/30/19 03:58 97.9 F 42 L 18 169/77 99 11/29/19 23:56 97.7 F 44 L 19 154/70 95 11/29/19 22:00 97.5 F L 43 L 19 148/68 96 11/29/19 19:56 60 11/29/19 19:32 97.7 F 46 L 14 126/76 98 11/29/19 16:18 66 11/29/19 16:08 66 11/29/19 15:00 97.4 F L 44 L 19 108/64 100 11/29/19 11:27 40 L 11/29/19 11:17 40 L Intake and Output 11/29/19 11/30/19 11/30/19 22:59 06:59 14:59 Intake Total 0 0 Output Total 300 Balance -300 0 Intake: Oral 0 0 Blood Product 0 Output: Urine 300 Other: Voiding Method Toilet Toilet # Voids 1 Weight 44.2 kg Results 11/29/19 06:20 11/30/19 06:17 Comprehensive Metabolic Panel 11/29/19 11/30/19 Range/Units 21:51 06:17 Sodium 137 (137-145) mmol/L Potassium 3.2 L 3.3 L (3.5-5.1) mmol/L Chloride 111 H (98-107) mmol/L Carbon Dioxide 16 L (22-30) mmol/L BUN 50 H (7-17) mg/dL Creatinine 1.80 H (0.52-1.04) mg/dL Glucose 81 (74-99) mg/dL Calcium 7.9 L (8.4-10.2) mg/dL Current Medications Generic Name Dose Route Start Last Admin Trade Name Freq PRN Reason Stop Dose Admin Acetaminophen 650 mg 11/25/19 08:15 11/29/19 08:05 Tylenol Tab PO 650 mg Q6HR PRN Administration Fever and/ or Pain Albuterol/Ipratropium 3 ml 11/28/19 16:00 11/30/19 07:31 Duoneb 0.5 Mg-3 Mg/3 Ml Soln INHALATION Not Given RT-QID [facility] Allopurinol 100 mg 11/25/19 10:30 11/30/19 09:10 Zyloprim PO 100 mg DAILY [facility] Administration Amlodipine Besylate 10 mg 08/27/20 10:30 11/30/19 09:09 Norvasc PO 10 mg DAILY [facility] Administration Calcitriol 0.25 mcg 11/30/19 09:00 11/30/19 09:09 Rocaltrol PO 0.25 mcg TU [facility] Administration Folic Acid 1 mg 11/25/19 10:30 11/30/19 09:10 Folic Acid PO 1 mg DAILY [facility] Administration Hydralazine HCl 25 mg 11/25/19 10:30 11/30/19 09:09 Apresoline PO 25 mg BID [facility] Administration Cefepime HCl 1 gm/ Sodium 50 mls @ 12.5 mls/hr 11/27/19 00:00 11/29/19 23:16 Chloride IVPB 12.5 mls/hr Q12H [facility] Administration Linezolid 600 mg/ IV Solution 300 mls @ 150 mls/hr 11/27/19 15:00 11/30/19 09:16 IVPB 150 mls/hr Q12HR [facility] Administration Protocol Levothyroxine Sodium 100 mcg 11/25/19 10:30 11/30/19 05:57 Synthroid PO Not Given DAILY@0630 [facility] Miscellaneous Information 1 each 11/29/19 07:08 Potassium Per Protocol MISCELLANE DAILY PRN Per Protocol Protocol Ondansetron HCl 4 mg 11/25/19 13:16 Zofran IVP Q6HR PRN Nausea And Vomiting Sodium Bicarbonate 650 mg 11/29/19 22:00 11/30/19 09:10 Sodium Bicarbonate Tab PO 650 mg TID [facility] Administration Voriconazole 200 mg 11/25/19 10:30 11/30/19 09:10 Vfend PO 200 mg BID [facility] Administration Intake and Output 11/29/19 11/30/19 11/30/19 22:59 06:59 14:59 Intake Total 0 0 Output Total 300 Balance -300 0 Intake: Oral 0 0 Blood Product 0 Output: Urine 300 Other: Voiding Method Toilet Toilet # Voids 1 Weight 44.2 kg 11/29/19 06:20 11/30/19 06:17
--- NOTE | 2019-11-30 11:52 | P.PN ---
Subjective Progress Note Date: 11/30/19 Principal diagnosis: Weakness, dyspnea, acute hypoxic respiratory failure 84-year-old white female patient of Dr. Boyd, with history of acute myeloid leukemia under the care of Dr. Chavez recently diagnosed in the August 2019, receiving chemotherapy, recently completing a 5 day cycle Dacogen and Ventoclax. Patient's course was complicated by to hospital hospitalizations for weakness and transfusions. She presented to the hospital on 11/25/2019 with a fever, pancytopenia, weakness, no nausea, no vomiting no chest pain, mild shortness of breath, no cough or congestion or diarrhea. Did have a fever of 100.3F on admission, with the T-max of 101F on successive vital signs. Chest x-ray showed lower lobe mild pulmonary interstitial infiltrates. Urinalysis was within normal limits. Patient was started on Zosyn and vancomycin initially. Patient blood work showed, White blood cell, 0.2, hemoglobin of 7.5, platelet count is 20, INR is 1.4, Sodium is 131, potassium is 4.0, chloride is 104, CO2 is 17, BUN is 41, creatinine is 1.7, pro calcitonin was elevated to 1.85, CRP was 174, LDH was within normal limits at 547, LFTs were within normal limits. Plasma lactic acid was 0.5. Covid 19 PCR was negative. Blood and urine cultures have shown no growth since admission. ID service is following, currently pneumatic coverage is with cefepime and Zyvox, in addition to voriconazole. On 11/27/2019 CT chest without contrast showed small bilateral pleural effusions with adjacent compressive atelectasis, bilateral apical thickening. Patient developed worsening hypoxic respiratory failure due to weekend, requiring as much as 15 L/m FiO2, blood gas showed pO2 44, pCO2 of 19, and pH of 7.42. Patient was given a dose of IV Lasix, lower extremity dopplers were negative for DVT. We were asked to see the patient in consultation for acute hypoxic respiratory failure On 11/30/2019 patient seen in follow-up on selective care unit, she is breathing easier on today's exam, she is awake and alert, oriented 3, she remains on 5 L of oxygen her pulse ox is 95-97%, this can probably be further wean down, her vital signs are stable, she's had no fever or chills. No CBC today, electrolytes showed a sodium of 137, potassium is 3.3, this being replaced per protocol, chloride is 111, CO2 is seen, slightly worsening function, with the BUN up to 50, and creatinine is 1.8. TSH was 0.755 within normal limits. Blood and urine cultures have shown no growth. Follow-up chest x-ray today still shows small bilateral pleural effusions with right greater than left bibasilar acute left bibasilar atelectasis and/or infiltrate, stable in appearance to yesterday's chest x-ray. Patient received additional dose of Lasix yesterday, net fluid balance is hard to estimate, but her weight has actually trended up to 44.2 kg from 42.6 kg in the last 24 hours. Clinically breathing appears to be comfortable. She remains on empiric antibiotics including cefepime, Zyvox, and voriconazole. Objective - Vital Signs Vital signs: Vital Signs Temp 97.5 F L 11/30/19 08:00 Pulse 41 L 11/30/19 08:00 Resp 18 11/30/19 03:58 BP 140/64 11/30/19 08:00 Pulse Ox 95 11/30/19 08:00 Intake & Output 11/29/19 11/30/19 11/30/19 18:59 06:59 18:59 Intake Total 0 Output Total 300 Balance -300 Weight 44.2 kg Intake: Oral 0 Blood Product 0 Output: Urine 300 Other: Voiding Method Toilet Toilet # Voids 1 - Exam GENERAL EXAM: Alert, very pleasant 74-year-old white female, on 5 L of oxygen with sats of 95% comfortable in no apparent distress. HEAD: Normocephalic/atraumatic. EYES: Normal reaction of pupils, equal size. Conjunctiva pink, sclera white. NOSE: Clear with pink turbinates. THROAT: No erythema or exudates. NECK: No masses, no JVD, no thyroid enlargement, no adenopathy. CHEST: No chest wall deformity. Symmetrical expansion. LUNGS: Equal air entry with diminished breath sounds at the bases, with crackles CVS: Regular rate and rhythm, normal S1 and S2, no gallops, no murmurs, no rubs ABDOMEN: Soft, nontender. No hepatosplenomegaly, normal bowel sounds, no guarding or rigidity. EXTREMITIES: No clubbing, no edema, no cyanosis, 2+ pulses and upper and lower extremities. MUSCULOSKELETAL: Muscle strength and tone normal. SPINE: No scoliosis or deformity SKIN: No rashes CENTRAL NERVOUS SYSTEM: Alert and oriented -3. No focal deficits, tone is normal in all 4 extremities. PSYCHIATRIC: Alert and oriented -3. Appropriate affect. Intact judgment and insight. - Labs CBC & Chem 7: 11/29/19 06:20 11/30/19 06:17 Labs: Abnormal Lab Results - Last 24 Hours (Table) 11/29/19 11/30/19 Range/Units 21:51 06:17 Potassium 3.2 L 3.3 L (3.5-5.1) mmol/L Chloride 111 H (98-107) mmol/L Carbon Dioxide 16 L (22-30) mmol/L BUN 50 H (7-17) mg/dL Creatinine 1.80 H (0.52-1.04) mg/dL Calcium 7.9 L (8.4-10.2) mg/dL Microbiology - Last 24 Hours (Table) 11/25/19 00:26 Blood Culture - Preliminary Blood No Growth after 120 hours 11/26/19 11:45 Blood Culture - Preliminary Blood No Growth after 72 hours 11/26/19 11:47 Blood Culture - Preliminary Blood No Growth after 72 hours Assessment and Plan Plan: Assessment: #1. Acute hypoxic respiratory failure related to fluid overload, CT of the chest showing bilateral pleural effusions with adjacent atelectasis, oxygenation has improved with a dose of IV Lasix, she still requiring high flow oxygen currently at 8 L/m On 11/30/2019 patient remains on supplemental oxygen, FiO2 is currently down to 5 L, received additional dose of Lasix yesterday, breathing easier today, although chest x-ray still shows bibasilar small pleural effusions and atelectasis. #2. Febrile neutropenia #3. Acute myeloid leukemia, status post induction chemotherapy #4. Hypertension #5. Hypothyroidism #6. Chronic kidney disease, stage IV #7. History of gout #8. Previous history of ITP Plan: Continue with antibiotics per ID service recommendations, continue weaning FiO2, patient is breathing has improved although chest x-ray shows stable findings of small pleural effusions and atelectasis, no additional Lasix at this time, we will continue to monitor on a daily basis, today's labs and chest x-ray have been noted. I performed a history & physical examination of the patient and discussed their management with my nurse practitioner, Silvina Hardwick. I reviewed the nurse practitioner's note and agree with the documented findings and plan of care. Lung sounds are positive for diminished breath sounds. The findings and the impression was discussed with the patient. I attest to the documentation by the nurse practitioner. Time with Patient: Less than 30
[2019-11-30] MEDS: CEFEPIME 1 GM in SODIUM CHLORIDE 0.9% 50 ML IVPB SCH ×2 (12:39→23:18)
[2019-11-30] MEDS: POTASSIUM CHLORIDE ER 20 MEQ TAB.ER PO SCH ×2 (12:39→14:43)
--- NOTE | 2019-11-30 17:36 | P.PN ---
Subjective Progress Note Date: 11/30/19 Principal diagnosis: Febrile neutropenia, AML In follow-up today patient cont to be frustrated. Weak, lacks appetite, denies fever, nausea, cough, she has some mild abd discomfort. Objective - Vital Signs Vital signs: Vital Signs Temp 97.5 F L 11/30/19 08:00 Pulse 48 L 11/30/19 16:45 Resp 18 11/30/19 03:58 BP 116/55 11/30/19 12:00 Pulse Ox 95 11/30/19 12:00 Intake & Output 11/29/19 11/30/19 11/30/19 18:59 06:59 18:59 Intake Total 0 Output Total 300 Balance -300 Weight 44.2 kg Intake: Oral 0 Blood Product 0 Output: Urine 300 Other: Voiding Method Toilet Toilet # Voids 1 2 - Constitutional General appearance: Present: cooperative, mild distress, thin - EENT Eyes: Present: anicteric sclerae, EOMI ENT: Present: hearing grossly normal, normal oropharynx - Respiratory Respiratory: bilateral: CTA - Cardiovascular Details: bradycardia Heart sounds: normal: S1, S2 - Gastrointestinal Gastrointestinal Comment(s): mild distension, generalized tenderness, no rebound General gastrointestinal: Present: soft - Neurologic Neurologic: Present: CNII-XII intact - Musculoskeletal Musculoskeletal: Present: generalized weakness - Psychiatric Psychiatric Comment(s): depressed Psychiatric: Present: A&O x's 3 - Labs CBC & Chem 7: 11/29/19 06:20 11/30/19 06:17 Labs: Abnormal Lab Results - Last 24 Hours (Table) 11/29/19 11/30/19 Range/Units 21:51 06:17 Potassium 3.2 L 3.3 L (3.5-5.1) mmol/L Chloride 111 H (98-107) mmol/L Carbon Dioxide 16 L (22-30) mmol/L BUN 50 H (7-17) mg/dL Creatinine 1.80 H (0.52-1.04) mg/dL Calcium 7.9 L (8.4-10.2) mg/dL Microbiology - Last 24 Hours (Table) 11/26/19 11:45 Blood Culture - Preliminary Blood No Growth after 96 hours 11/26/19 11:47 Blood Culture - Preliminary Blood No Growth after 96 hours 11/25/19 00:26 Blood Culture - Preliminary Blood No Growth after 120 hours Assessment and Plan (1) Febrile neutropenia Narrative/Plan: Pancultures are negative at this point, ID consulted, empiric antibiotics continue, fever pattern has abated. Current Visit: Yes Status: Acute Priority: High Code(s): D70.9 - NEUTROPENIA, UNSPECIFIED; R50.81 - FEVER PRESENTING WITH CONDITIONS CLASSIFIED ELSEWHERE SNOMED Code(s): 256425308 (2) Acute myeloid leukemia Narrative/Plan: Patient's last treatment was 11/03. Her oral venetoclax is held for now due to low counts and presentation. Recent bone marrow biopsy showing no residual acute leukemia! GCSF is able to administered. She will see Dr. Chavez in 2 weeks. Current Visit: Yes Status: Acute Priority: High Code(s): C92.00 - ACUTE MYELOBLASTIC LEUKEMIA, NOT HAVING ACHIEVED REMISSION SNOMED Code(s): 67352735 (3) Pancytopenia Narrative/Plan: Secondary to disease and treatment of disease. Transfuse for hemoglobin less than 7 or less patient is symptomatic. No transfusions today Transfuse for platelet count less than 10,000 or if patient is symptomatic. No platelet transfusion today. Patient's recent bone marrow biopsy showed no residual leukemia! Patient is going to be started on G-CSF, first dose today. CBC daily. We will continue to monitor the patient's CBC in the outpatient setting, transfusions as needed. Current Visit: Yes Status: Acute Priority: High Code(s): D61.818 - OTHER PANCYTOPENIA SNOMED Code(s): 900893270 Plan: Clear liquid diet for neutropenia I had a long conversation with patient today regarding my concerns for depression. She verbalized understanding my recommendation that she should start something for depression. I told her that I would discussed with the Attending, which I have, and Laxapro has been started. We discussed the difficulty of having acute leukemia, especially in her age group. Pros and cons of going through treatment as well as opting to not do treatment were reviewed. I reminded her that treatment requires a commitment from patients that they will do their best to comply with the recommendations and that they understand the potential problems. She verbalized understanding. Pending most recent bone marrow results. We will have a more detailed conversation tomorrow I found out about the bone marrow was negative for residual leukemia this afternoon. I did discuss that with attending physician Dr. Fishman as I asked him to follow-up with the patient regarding treatment of depression. GCSF was able to be started. Will see pt in AM. Will call daughter tomorrow. Time with Patient: Greater than 30
--- NOTE | 2019-11-30 17:47 | PN ---
PROGRESS NOTE DATE OF SERVICE: 11/30/2019 REASON FOR FOLLOWUP: Pneumonia, febrile neutropenia. INTERVAL HISTORY: The patient is currently afebrile. The patient is breathing comfortably. The patient denies having any chest pain. She did have some cough, not bringing up sputum. No nausea, no vomiting. No abdominal pain or diarrhea. PHYSICAL EXAMINATION: Blood pressure 143/84 with a pulse of 41, temperature 97.5. She is 95% on 5 L nasal cannula. General description is an elderly female lying in bed in no distress. RESPIRATORY SYSTEM: Unlabored breathing with decreased breath sounds at the base. No wheeze. HEART: Regular rate and rhythm. ABDOMEN: Soft. No tenderness. LABS: Hemoglobin is 9, white count 0.4, BUN of 50, creatinine 1.80. Blood cultures have been negative so far. Urine negative. She was unable to provide any sputum. DIAGNOSTIC IMPRESSION AND PLAN: Patient with febrile neutropenia with initial concern for possible PICC line infection. However, blood culture has been negative, making it unlikely, with concern for possible pneumonia, and the patient has been on cefepime and Zyvox. However, the admitting physician has started the patient on Lexapro with high risk of neuroleptic malignant syndrome with Zyvox. With the cultures negative for any resistant Gram-positive, we will discontinue Zyvox. Continue cefepime and monitor her clinical course closely. MMODL / IJN: [id number] /
[2019-11-30] MEDS: FILGRASTIM-SNDZ 300 MCG/0.5 ML SYRINGE SQ SCH (17:59)
--- NOTE | 2019-11-30 18:55 | XR ---
EXAMINATION TYPE: XR abdomen complete w decub DATE OF EXAM: 11/30/2019 COMPARISON: NONE HISTORY: Abdominal pain TECHNIQUE: 4 views including decubitus supine and upright abdomen FINDINGS: There are some dilated air and fluid-filled small bowel loops in the mid abdomen. There is a relative lack of large bowel gas. There is blunting of right costophrenic angle. There is infiltrat e and atelectasis at both lung bases. Heart is enlarged. I see no sign of free air. IMPRESSION: Dilated small bowel suggestive of mechanical distal small bowel obstruction. No free air. Lower lobe bilateral pulmonary infiltrates and atelectasis. Small right pleural effusion.
--- NOTE | 2019-11-30 22:12 | P.PN ---
Progress Note - Text Progress Note Date: 11/30/19 Chief Complaint: Fever History of presenting complaint: This is 74-year-old patient who follows with Dr. Boyd. Oncologist is Dr. Merrill. Chronic stable medical conditions include hypertension, hypothyroid, chronic kidney disease,. Patient has been diagnosed with AML. Has been getting chemotherapy. Patient now presents with decreased appetite nausea and vomiting 1 today. Also had fever. 100.3 documented here. Tired and rundown. Admitted for the same. Started on IV fluids. Denies any sores in the mouth. No diarrhea. No skin changes. Admitted with neutropenic fever. Empirically started on vancomycin and Zosyn. Because of renal function changed to linezolid. Also on cefepime. Patient became short of breath. Given a dose of IV Lasix. Decreased oral intake. Computed tomography scan of the chest nonspecific. Doppler ultrasound of lower extremity negative for DVT.I was informed by Yvrose from oncology that patient repeat bone marrow came back negative for AML. Today-breathing is more comfortable. Diet. Hasn't been out of bed. Somewhat d epressed. Decreased oral intake. No fever. Review of systems: Was done for constitutional, cardiovascular, GI, pulmonary. relevant finding as above Active Medications Acetaminophen (Tylenol Tab) 650 mg PO Q6HR PRN PRN Reason: Fever and/ or Pain Last Admin: 11/29/19 08:05 Dose: 650 mg Documented by: Albuterol/Ipratropium (Duoneb 0.5 Mg-3 Mg/3 Ml Soln) 3 ml INHALATION RT-QID [facility] Last Admin: 11/30/19 19:42 Dose: 3 ml Documented by: Allopurinol (Zyloprim) 100 mg PO DAILY [facility] Last Admin: 11/30/19 09:10 Dose: 100 mg Documented by: Amlodipine Besylate (Norvasc) 10 mg PO DAILY [facility] Last Admin: 11/30/19 09:09 Dose: 10 mg Documented by: Calcitriol (Rocaltrol) 0.25 mcg PO TU [facility] Last Admin: 11/30/19 09:09 Dose: 0.25 mcg Documented by: Escitalopram Oxalate (Lexapro) 10 mg PO DAILY [facility] Filgrastim-Sndz (Zarxio) 300 mcg SQ DAILY [facility] Last Admin: 11/30/19 17:59 Dose: 300 mcg Documented by: Folic Acid (Folic Acid) 1 mg PO DAILY [facility] Last Admin: 11/30/19 09:10 Dose: 1 mg Documented by: Hydralazine HCl (Apresoline) 25 mg PO BID [facility] Last Admin: 11/30/19 21:13 Dose: 25 mg Documented by: Cefepime HCl 1 gm/ Sodium (Chloride) 50 mls @ 12.5 mls/hr IVPB Q12H [facility] Last Admin: 11/30/19 12:39 Dose: 12.5 mls/hr Documented by: Levothyroxine Sodium (Synthroid) 100 mcg PO DAILY@0630 [facility] Last Admin: 11/30/19 05:57 Dose: Not Given Documented by: Miscellaneous Information (Potassium Per Protocol) 1 each MISCELLANE DAILY PRN; Protocol PRN Reason: Per Protocol Ondansetron HCl (Zofran) 4 mg IVP Q6HR PRN PRN Reason: Nausea And Vomiting Sodium Bicarbonate (Sodium Bicarbonate Tab) 650 mg PO TID [facility] Last Admin: 11/30/19 21:13 Dose: 650 mg Documented by: Voriconazole (Vfend) 200 mg PO BID [facility] Last Admin: 11/30/19 21:14 Dose: 200 mg Documented by: Physical examination: VITAL SIGNS: 97.5, 41, 16, 140/64, 95% on 5 L GENERAL: Laying in bed, breathing better awake, on nasal cannula EYES: Pupils equal. Conjunctiva pale. HEENT: External appearance of nose and ears normal, oral cavity grossly normal. NECK: JVD not raised; masses not palpable. HEART: First and second heart sounds are normal; no edema. LUNGS: Respiratory rate increased, decreased breath sound ABDOMEN: Soft, nontender, liver spleen not palpable, no masses palpable. PSYCH: Alert and oriented x3; mood and affect-anxious INVESTIGATIONS, reviewed in the clinical context: potassium 3.3 bun 50 creatinine 1.8 bicarbonate 16 Previous testing White count 0.2 hemoglobin 7.5 platelets 20 potassium 4 bun 41 and creatinine 1.70 CRP 174 pro-calcitonin 1.85 Chest x-ray film personally reviewed by me-questionable chronic infiltrate EKG tracing personally reviewed by me-sinus rhythm with left bundle-branch block Ultrasound lower extremity-negative for DVT Computed tomography scan of the chest-without contrast small bilateral pleural effusion with compressive atelectasis bilateral apical thickening. ABG-pCO2 19 pO2 44 on room air Assessment: -Neutropenic fever in a patient getting chemotherapy for AML. No obvious source of infection. Empirically on linezolid and cefepime-improving -Acute hypoxic respiratory failure. Chest x-ray- question fluid overload. Doppler ultrasound negative for DVT.-Slow to respond on 5 L nasal cannula -Pancytopenia secondary to chemotherapy and slow to respond -Severe anemia from pancytopenia-received 1 unit of PRBC -AML -Left bundle-branch block -Chronic kidney disease stage IV, multifactorial -Essential hypertension -Hypothyroid -Metabolic acidosis from renal failure-slow to respond -Depression not otherwise specified Plan: IV cefepime. decrease oxygen to 3 L. Lexapro was added after talking to pharmacy..Zyvox being discontinued by ID. PTOT consulted. Possibly rehab. Discussed with manager of case management. In the pharmacy. Also discussed with the patient. Total spent time today about 45 minutes over 30 minutes of discussion.
[2019-12-01] MEDS: LEVOTHYROXINE 100 MCG TAB PO SCH (07:04)
[2019-12-01 07:31] LABS: Anisocytosis Slight; HCT 28.5 % (34.0-46.0); HGB 9.1 gm/dL (11.4-16.0); Hypochromasia Slight; MCH 28.9 pg (25.0-35.0); MCV 90.2 fL (80.0-100.0); Mean Platelet Volume 14.8; RBC 3.16 m/uL (3.80-5.40); RDW 16.1 % (11.5-15.5)
[2019-12-01 07:36] LABS: WBC 0.8 k/uL (3.8-10.6)
[2019-12-01 07:37] LABS: Calcium 7.9 mg/dL (8.4-10.2); Potassium 3.7 mmol/L (3.5-5.1)
[2019-12-01 07:39] LABS: Platelet Count 11 k/uL (150-450)
[2019-12-01] MEDS: IPRATROPIUM-ALBUTEROL 3 ML NEB INHALATION SCH ×4 (08:50→18:53)
[2019-12-01 08:58] LABS: Large Platelets Present; Poikilocytosis (M) Present
[2019-12-01 09:05] LABS: Crenated RBC Present
[2019-12-01] MEDS: allopurinoL 100 MG TAB PO SCH (09:17)
[2019-12-01] MEDS: SODIUM BICARBONATE TAB 650 MG TAB PO SCH ×3 (09:17→23:14)
[2019-12-01] MEDS: amLODIPine 10 MG TAB PO SCH (09:17)
[2019-12-01] MEDS: FOLIC ACID 1 MG TAB PO SCH (09:17)
[2019-12-01] MEDS: ESCITALOPRAM 10 MG TAB PO SCH (09:17)
[2019-12-01] MEDS: VORICONAZOLE 200 MG TAB PO SCH ×2 (09:17→23:15)
[2019-12-01] MEDS: hydrALAZINE HCL 25 MG TAB PO SCH ×2 (09:17→23:14)
[2019-12-01] MEDS ORDERED: POTASSIUM CHLORIDE ER 20 MEQ TAB.ER PO STA (11:17)
--- NOTE | 2019-12-01 11:24 | P.PN ---
Subjective Progress Note Date: 12/01/19 CHIEF COMPLAINT: Abnormal EKG/bradycardia HISTORY OF PRESENT ILLNESS: Patient examined this morning at the bedside. Denies chest pain or pressure. Denies shortness of breath. Denies lightheadedness or dizziness. She remains in complete heart block. Heart rate is in the 40s. Platelet count 11 PHYSICAL EXAM: VITAL SIGNS: Reviewed. GENERAL: Well-developed in no acute distress. HEENT: Head is normocephalic. Pupils are equal, round. Sclerae anicteric. Mucous membranes of the mouth are moist. Neck supple. No JVD or thyromegaly LUNGS: Respirations even and unlabored. Lungs essentially clear to auscultation bilaterally. HEART: Regular rate and rhythm. S1 and S2 heard. Systolic murmur. EXTREMITIES: Normal range of motion. No clubbing or cyanosis. Peripheral pulses intact. No lower extremity edema NEUROLOGIC: Awake and alert. Oriented x 3. ASSESSMENT: 1. Complete heart block, asymptomatic 2. Hypertension 3. Acute myeloid leukemia, receiving chemotherapy 4. Pancytopenia 5. Mild aortic stenosis PLAN: Patient is high risk for any intervention at this time due to recent ch emotherapy and pancytopenia Patient is currently asymptomatic with complete heart block We will continue to monitor patient at this time Will repeat 12-lead EKG today and also tomorrow morning Further recommendations pending patient course Nurse practitioner note has been reviewed by physician. Signing provider agrees with the documented findings, assessment, and plan of care. Objective - Vital Signs Vital signs: Vital Signs Temp 97.4 F L 12/01/19 08:00 Pulse 35 L 12/01/19 09:02 Resp 20 12/01/19 08:00 BP 146/66 12/01/19 08:00 Pulse Ox 96 12/01/19 08:51 Intake & Output 11/30/19 12/01/19 12/01/19 18:59 06:59 18:59 Weight 37 kg 37 kg Other: Voiding Method Toilet Toilet # Voids 2 1 - Labs CBC & Chem 7: 12/01/19 06:48 12/01/19 06:48 Labs: Abnormal Lab Results - Last 24 Hours (Table) 12/01/19 12/01/19 12/01/19 Range/Units 06:48 06:48 06:48 WBC 0.8 L* (3.8-10.6) k/uL RBC 3.16 L (3.80-5.40) m/uL Hgb 9.1 L (11.4-16.0) gm/dL Hct 28.5 L (34.0-46.0) % RDW 16.1 H (11.5-15.5) % Plt Count 11 L* (150-450) k/uL Chloride 112 H (98-107) mmol/L Carbon Dioxide 17 L (22-30) mmol/L BUN 49 H (7-17) mg/dL Creatinine 1.83 H (0.52-1.04) mg/dL Glucose 66 L (74-99) mg/dL Calcium 7.9 L (8.4-10.2) mg/dL Magnesium 1.4 L (1.6-2.3) mg/dL Microbiology - Last 24 Hours (Table) 11/25/19 00:26 Blood Culture - Final Blood No Growth after 144 hours 11/26/19 11:45 Blood Culture - Preliminary Blood No Growth after 96 hours 11/26/19 11:47 Blood Culture - Preliminary Blood No Growth after 96 hours
[2019-12-01] MEDS ORDERED: POTASSIUM CHLORIDE ER 20 MEQ TAB.ER PO SCH (12:00)
[2019-12-01] MEDS: CEFEPIME 1 GM in SODIUM CHLORIDE 0.9% 50 ML IVPB SCH ×2 (12:31→23:36)
[2019-12-01] MEDS: FILGRASTIM-SNDZ 300 MCG/0.5 ML SYRINGE SQ SCH (12:32)
[2019-12-01] MEDS: MAGNESIUM OXIDE 400 MG TAB PO SCH ×3 (12:32→23:15)
[2019-12-01] MEDS ORDERED: bisacodyL 10 MG SUPP RECTAL STA (12:41)
[2019-12-01] MEDS ORDERED: IOPAMIDOL CONTRAST (ORAL USE) VIAL PO PRN (12:55)
--- NOTE | 2019-12-01 13:41 | P.PN ---
Subjective Progress Note Date: 12/01/19 Principal diagnosis: Febrile neutropenia, AML In follow-up today patient cont to be frustrated, can not even more her own body weight or change positions in the bed, no appetite. Denies fever, nausea, cough, she has not had a BM since admit. Abd xray suspicious for SBO. Objective - Vital Signs Vital signs: Vital Signs Temp 97.4 F L 12/01/19 08:00 Pulse 34 L 12/01/19 12:17 Resp 20 12/01/19 08:00 BP 146/66 12/01/19 08:00 Pulse Ox 96 12/01/19 08:51 Intake & Output 11/30/19 12/01/19 12/01/19 18:59 06:59 18:59 Weight 37 kg 37 kg Other: Voiding Method Toilet Toilet # Voids 2 1 - Constitutional General appearance: Present: cooperative, mild distress, thin - EENT Eyes: Present: anicteric sclerae, EOMI ENT: Present: hearing grossly normal - Respiratory Respiratory: bilateral: CTA (weak inspiratory effort) - Cardiovascular Details: bradycardia Heart sounds: normal: S1, S2 - Peripheral edema leg Peripheral Edema: bilateral: None - Gastrointestinal General gastrointestinal: Present: distended, hyperactive bowel sounds, soft - Neurologic Neurologic: Present: CNII-XII intact - Musculoskeletal Musculoskeletal: Present: generalized weakness - Psychiatric Psychiatric: Present: A&O x's 3 - Labs CBC & Chem 7: 12/01/19 06:48 12/01/19 06:48 Labs: Abnormal Lab Results - Last 24 Hours (Table) 12/01/19 12/01/19 12/01/19 Range/Units 06:48 06:48 06:48 WBC 0.8 L* (3.8-10.6) k/uL RBC 3.16 L (3.80-5.40) m/uL Hgb 9.1 L (11.4-16.0) gm/dL Hct 28.5 L (34.0-46.0) % RDW 16.1 H (11.5-15.5) % Plt Count 11 L* (150-450) k/uL Chloride 112 H (98-107) mmol/L Carbon Dioxide 17 L (22-30) mmol/L BUN 49 H (7-17) mg/dL Creatinine 1.83 H (0.52-1.04) mg/dL Glucose 66 L (74-99) mg/dL Calcium 7.9 L (8.4-10.2) mg/dL Magnesium 1.4 L (1.6-2.3) mg/dL Microbiology - Last 24 Hours (Table) 11/25/19 00:26 Blood Culture - Final Blood No Growth after 144 hours 11/26/19 11:45 Blood Culture - Preliminary Blood No Growth after 96 hours 11/26/19 11:47 Blood Culture - Preliminary Blood No Growth after 96 hours - Imaging and Cardiology Abdominal x-ray: report reviewed Assessment and Plan (1) Febrile neutropenia Narrative/Plan: Pancultures are negative. Fever pattern has abated. ID following Current Visit: Yes Status: Acute Priority: High Code(s): D70.9 - NEUTROPENIA, UNSPECIFIED; R50.81 - FEVER PRESENTING WITH CONDITIONS CLASSIFIED ELSEWHERE SNOMED Code(s): 906327308 (2) Acute myeloid leukemia Narrative/Plan: Patient's last treatment was 11/03. Her oral venetoclax was held for low counts and presentation. Will resume this week (if pt wants to). Recent bone marrow biopsy showing no residual acute leukemia! GCSF is able to administered and was started 11/29. She will see Dr. Chavez in 2 weeks. Current Visit: Yes Status: Acute Priority: High Code(s): C92.00 - ACUTE MYELOBLASTIC LEUKEMIA, NOT HAVING ACHIEVED REMISSION SNOMED Code(s): 77683129 (3) Pancytopenia Narrative/Plan: Secondary to disease and treatment of disease. Transfuse for hemoglobin less than 7 or less patient is symptomatic. No transfusions today Transfuse for platelet count less than 10,000 or if patient is symptomatic. No platelet transfusion today. Patient's recent bone marrow biopsy showed no residual leukemia! Patient started on G-CSF. WBC 0.8 today. CBC daily. We will continue to monitor the patient's CBC, transfusions as needed. Current Visit: Yes Status: Acute Priority: High Code(s): D61.818 - OTHER PANCYTOPENIA SNOMED Code(s): 001412303 (4) Small bowel obstruction Narrative/Plan: No BM for 6 days. Consulted Surgery, spoke to Surgical CLEANING STAFF SUPERVISOR. Changed diet to ice chips and meds only, pending assessment and plan. Current Visit: Yes Status: Acute Priority: High Code(s): K56.609 - UNSP INTESTNL OBST, UNSP TO PARTIAL VERSUS COMPLETE OBST SNOMED Code(s): 060751280 (5) Third degree heart block Narrative/Plan: Case discussed with Cardiology. Primary Oncologist and Ux Researcher will discuss plan to address. Current Visit: Yes Status: Acute Priority: High Code(s): I44.2 - ATRIOVENTRICULAR BLOCK, COMPLETE SNOMED Code(s): 97667510 Plan: Lexapro has been started for depression. We reviewed that the bone marrow was negative for residual leukemia today. GCSF was able to be started. Oral venetoclax neds to resumed this week and dacogen was due this week. We again review her options-treatment of disease vs treatment of symptoms. If she were to stop treatment now there is no way of knowing when AML will return. If she continues treatment there is no way of knowing how long the treatment will remain effective. She is in a very difficult position. She is also now dealing with heart block and possibly a SBO. I will contact daughter and discuss all of the above. Hopefully they will be able to come to a decision and make a plan that pt can start working towards. Time with Patient: Greater than 30
--- NOTE | 2019-12-01 15:14 | P.GSCN ---
History of Present Illness Consult date: 12/01/19 History of present illness: CHIEF COMPLAINT: Fever HISTORY OF PRESENT ILLNESS: This is a 74-year-old female with a known history of AML, hypertension hypothyroidism and chronic kidney disease. She presented to the hospital due to neutropenic fever. She had been on chemotherapy for her AML. She had some mild abdominal discomfort and an abdominal x-ray was ordered with suspicion of a small bowel obstruction. Therefore, surgical consult was placed. Patient is currently afebrile. She has not had a BM for 6 days. She denies any nausea or vomiting. WBC 0.8 hemoglobin 9.1 platelets 11 PAST MEDICAL HISTORY: See list. PAST SURGICAL HISTORY: See list. MEDICATIONS: See list. ALLERGIES: See list. SOCIAL HISTORY: No illicit drug use. REVIEW OF SYSTEMS: CONSTITUTIONAL: Denies fever or chills. HEENT: Denies blurred vision, vision changes, or eye pain. Denies hemoptysis CARDIOVASCULAR: Denies chest pain or pressure. RESPIRATORY: No shortness of breath. GASTROINTESTINAL: See HPI for pertinent findings HEMATOLOGIC: Denies bleeding disorders. GENITOURINARY: Denies any blood in urine or increased urinary frequency. SKIN: Denies pruitis. Denies rash. PHYSICAL EXAM: VITAL SIGNS: Reviewed GENERAL: Well-developed in no acute distress. HEENT: No sclera icterus. Extraocular movements grossly intact. Moist buccal mucosa. Head is atraumatic, normocephalic. No nasal drainage. ABDOMEN: Soft. Mildly distended nontender NEUROLOGIC: Alert and oriented. Cranial nerves II through XII grossly intact. LABORATORY DATA: WBC is 0.8 hemoglobin is 9.1 platelets 11 IMAGING: Abdominal x-ray showing dilated small bowel suggestive of mechanical distal small bowel obstruction. No free air. ASSESSMENT: 1. Small bowel obstruction 2. 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 Febrile neutropenia 4. Third-degree heart block followed by cardiology PLAN: -Check computed tomography scan of the abdomen and pelvis with oral contrast -Continue nothing by mouth diet Thank you for this consultation. [facility] note has been reviewed by physician. Signing provider agrees with the documented findings, assessment, and plan of care. Past Medical History Past Medical History: Blood Disorder, Cancer, Hypertension, Renal Disease Additional Past Medical History / Comment(s): Anemia, Stage 4 kidney disease, AML- started inpt. chemo 11/17/19- History of Any Multi-Drug Resistant Organisms: None Reported Past Surgical History: Appendectomy, Hysterectomy Past Anesthesia/Blood Transfusion Reactions: No Reported Reaction Past Psychological History: Depression Smoking Status: Never smoker Past Alcohol Use History: None Reported Past Drug Use History: None Reported - Past Family History Father Family Medical History: Cancer Additional Family Medical History / Comment(s): esophageal cancer Mother Family Medical History: Hypertension Medications and Allergies Home Medications Medication Instructions Recorded Confirmed Type Folate 666 mcg PO DAILY 09/08/19 11/25/19 History allopurinoL [Zyloprim] 100 mg PO DAILY 09/08/19 11/25/19 History calcitrioL [Rocaltrol] 0.25 mcg PO TU 09/08/19 11/25/19 History Levothyroxine Sodium [Synthroid] 100 mcg PO DAILY@0630 #30 tab 10/25/19 11/25/19 Rx amLODIPine [Norvasc] 10 mg PO DAILY #30 tab 10/25/19 11/25/19 Rx Acetaminophen Tab [Tylenol] 325 - 650 mg PO Q4H PRN 11/19/19 11/25/19 History hydrALAZINE HCL [Apresoline] 25 mg PO BID 11/19/19 11/25/19 History Voriconazole 200 mg PO BID 11/25/19 11/25/19 History Venetoclax [Venclexta] 100 mg PO DAILY #3 tablet 11/29/19 Rx Allergies Allergy/AdvReac Type Severity Reaction Status Date / Time No Known Allergies Allergy Verified 11/25/19 08:30 Surgical - Exam Vital Signs Temp Pulse Resp BP Pulse Ox 98.4 F 98 16 114/63 95 11/24/19 23:42 11/24/19 23:42 11/24/19 23:42 11/24/19 23:42 11/24/19 23:42 Results - Labs 12/01/19 06:48 12/01/19 06:48 Abnormal Lab Results - Last 24 Hours (Table) 12/01/19 12/01/19 12/01/19 Range/Units 06:48 06:48 06:48 WBC 0.8 L* (3.8-10.6) k/uL RBC 3.16 L (3.80-5.40) m/uL Hgb 9.1 L (11.4-16.0) gm/dL Hct 28.5 L (34.0-46.0) % RDW 16.1 H (11.5-15.5) % Plt Count 11 L* (150-450) k/uL Chloride 112 H (98-107) mmol/L Carbon Dioxide 17 L (22-30) mmol/L BUN 49 H (7-17) mg/dL Creatinine 1.83 H (0.52-1.04) mg/dL Glucose 66 L (74-99) mg/dL Calcium 7.9 L (8.4-10.2) mg/dL Magnesium 1.4 L (1.6-2.3) mg/dL Microbiology - Last 24 Hours (Table) 11/26/19 11:45 Blood Culture - Preliminary Blood No Growth after 120 hours 11/26/19 11:47 Blood Culture - Preliminary Blood No Growth after 120 hours 11/25/19 00:26 Blood Culture - Final Blood No Growth after 144 hours Diabetes panel 12/01/19 Range/Units 06:48 Sodium 138 (137-145) mmol/L Potassium 3.7 (3.5-5.1) mmol/L Chloride 112 H (98-107) mmol/L Carbon Dioxide 17 L (22-30) mmol/L BUN 49 H (7-17) mg/dL Creatinine 1.83 H (0.52-1.04) mg/dL Glucose 66 L (74-99) mg/dL Calcium 7.9 L (8.4-10.2) mg/dL Calcium panel 12/01/19 Range/Units 06:48 Calcium 7.9 L (8.4-10.2) mg/dL Pituitary panel 12/01/19 Range/Units 06:48 Sodium 138 (137-145) mmol/L Potassium 3.7 (3.5-5.1) mmol/L Chloride 112 H (98-107) mmol/L Carbon Dioxide 17 L (22-30) mmol/L BUN 49 H (7-17) mg/dL Creatinine 1.83 H (0.52-1.04) mg/dL Glucose 66 L (74-99) mg/dL Calcium 7.9 L (8.4-10.2) mg/dL Adrenal panel 12/01/19 Range/Units 06:48 Sodium 138 (137-145) mmol/L Potassium 3.7 (3.5-5.1) mmol/L Chloride 112 H (98-107) mmol/L Carbon Dioxide 17 L (22-30) mmol/L BUN 49 H (7-17) mg/dL Creatinine 1.83 H (0.52-1.04) mg/dL Glucose 66 L (74-99) mg/dL Calcium 7.9 L (8.4-10.2) mg/dL
--- NOTE | 2019-12-01 16:11 | CT ---
EXAMINATION TYPE: CT abdomen pelvis wo con DATE OF EXAM: 12/01/2019 COMPARISON: Plain film 11/30/2019 HISTORY: Abdominal pain and distention. CT DLP: 382.7 mGycm Automated exposure control for dose reduction was used. TECHNIQUE: Helical acquisition of images from the lung bases through the pelvis. FINDINGS: Lack of intravenous contrast could compromise sensitivity. There is abnormal thickening suggested at the gastroesophageal junction. LUNG BASES: Bilateral pleural effusions and associated compressive atelectasis noted.. AORTA: No significant abnormality is appreciated. LIVER/GB: No significant abnormality is appreciated. PANCREAS: No significant abnormality is seen. SPLEEN: No significant abnormality is seen. ADRENALS: No significant abnormality is seen. KIDNEYS: No significant abnormality is seen. REPRODUCTIVE ORGANS: No significant abnormality is seen. URINARY BLADDER: Distended with urine. BOWEL: Persistent small bowel obstruction is present, oral contrast has not coursed into the ileum, there is contrast in the stomach, distal esophagus, duodenum and portions of the jejunum, distal escobar l is decompressed. FREE AIR: No Free Air is visible. ASCITES: There is a small amount of ascites present.. PELVIC ADENOPATHY: None visualized. RETROPERITONEAL ADENOPATHY: No Retroperitoneal Adenopathy visible. OSSEOUS STRUCTURES: Superior endplate fracture at T12 shows retropulsion causing only mild spinal st enosis. There is an associated kyphosis.. IMPRESSION: SMALL BOWEL OBSTRUCTION. BILATERAL PLEURAL EFFUSIONS AND ASSOCIATED ATELECTASIS. ASCITES. QUESTION AB NORMAL THICKENING OF THE GASTROESOPHAGEAL JUNCTION, CONSIDER DIRECT VISUALIZATION. A Red level critical message alert has been initiated for Graham Fishman MD via the [employer] Critical Results System on 12/01/2019 4:09 PM. This message alert has been sent to Graham Fishman MD via the preferences provided by the clinician for the receipt of Radiology Critical Findings. Cubiez e ID [id number].
--- NOTE | 2019-12-01 16:50 | PN ---
PROGRESS NOTE DATE OF SERVICE: 12/01/2019 REASON FOR FOLLOWUP: Febrile neutropenia and pneumonia. INTERVAL HISTORY: The patient is currently afebrile. The patient is breathing more comfortably. She is currently on 3 L nasal cannula. Denies having any chest pain. Cough, but not bringing up any sputum. No nausea, no vomiting. No abdominal pain or diarrhea. PHYSICAL EXAMINATION: Blood pressure 136/69, pulse of 58, temperature 98. She is 96% on 3 L nasal cannula. General description is an elderly female lying in bed in no distress. RESPIRATORY SYSTEM: Unlabored breathing. Decreased breath sounds at bases. No wheeze. HEART: S1, S2. Regular rate and rhythm. C ABDOMEN: Soft. No tenderness. LABS: Hemoglobin is 9.1, white count 0.8. BUN of 49, creatinine 1.83. Blood culture negative. Urine is negative. DIAGNOSTIC IMPRESSION AND PLAN: Patient with febrile neutropenia with concern for possible pneumonia. Patient is currently covered with cefepime. Cultures have been negative so far. To continue and will monitor her clinical course closely. MMODL / IJN: [id number] /
--- NOTE | 2019-12-01 17:08 | P.PN ---
Progress Note - Text Progress Note Date: 12/01/19 Chief Complaint: Fever History of presenting complaint: This is 74-year-old patient who follows with Dr. Boyd. Oncologist is Dr. Merrill. Chronic stable medical conditions include hypertension, hypothyroid, chronic kidney disease,. Patient has been diagnosed with AML. Has been getting chemotherapy. Patient now presents with decreased appetite nausea and vomiting 1 today. Also had fever. 100.3 documented here. Tired and rundown. Admitted for the same. Started on IV fluids. Denies any sores in the mouth. No diarrhea. No skin changes. Admitted with neutropenic fever. Empirically started on vancomycin and Zosyn. Because of renal function changed to linezolid. Also on cefepime. Patient became short of breath. Given a dose of IV Lasix. Decreased oral intake. Computed tomography scan of the chest nonspecific. Doppler ultrasound of lower extremity negative for DVT.I was informed by Yvrose from oncology that patient repeat bone marrow came back negative for AML. G-CSF was started. Today-patient not a bowel movement. Abdominal x-ray showing a fluid levels. Poor appetite. No nausea vomiting. No abdominal pain. Tired Review of systems: Was done for constitutional, cardiovascular, GI, pulmonary. relevant finding as above Active Medications Acetaminophen (Tylenol Tab) 650 mg PO Q6HR PRN PRN Reason: Fever and/ or Pain Last Admin: 11/29/19 08:05 Dose: 650 mg Documented by: Albuterol/Ipratropium (Duoneb 0.5 Mg-3 Mg/3 Ml Soln) 3 ml INHALATION RT-QID [facility] Last Admin: 12/01/19 16:07 Dose: 3 ml Documented by: Allopurinol (Zyloprim) 100 mg PO DAILY [facility] Last Admin: 12/01/19 09:17 Dose: 100 mg Documented by: Amlodipine Besylate (Norvasc) 10 mg PO DAILY [facility] Last Admin: 12/01/19 09:17 Dose: 10 mg Documented by: Calcitriol (Rocaltrol) 0.25 mcg PO TU [facility] Last Admin: 11/30/19 09:09 Dose: 0.25 mcg Documented by: Escitalopram Oxalate (Lexapro) 10 mg PO DAILY [facility] Last Admin: 12/01/19 09:17 Dose: 10 mg Documented by: Filgrastim-Sndz (Zarxio) 300 mcg SQ DAILY [facility] Last Admin: 12/01/19 12:32 Dose: 300 mcg Documented by: Folic Acid (Folic Acid) 1 mg PO DAILY [facility] Last Admin: 12/01/19 09:17 Dose: 1 mg Documented by: Hydralazine HCl (Apresoline) 25 mg PO BID [facility] Last Admin: 12/01/19 09:17 Dose: 25 mg Documented by: Cefepime HCl 1 gm/ Sodium (Chloride) 50 mls @ 12.5 mls/hr IVPB Q12H [facility] Last Admin: 12/01/19 12:31 Dose: 12.5 mls/hr Documented by: Iopamidol (Isovue-300 (For Oral Use)) 30 ml PO Q60M PRN PRN Reason: CT Scan Stop: 12/02/19 12:56 Last Admin: 12/01/19 13:38 Dose: 30 ml Documented by: Levothyroxine Sodium (Synthroid) 100 mcg PO DAILY@0630 [facility] Last Admin: 12/01/19 07:04 Dose: 100 mcg Documented by: Magnesium Oxide (Mag-Ox) 200 mg PO TID [facility] Last Admin: 12/01/19 12:32 Dose: 200 mg Documented by: Miscellaneous Information (Potassium Per Protocol) 1 each MISCELLANE DAILY PRN; Protocol PRN Reason: Per Protocol Ondansetron HCl (Zofran) 4 mg IVP Q6HR PRN PRN Reason: Nausea And Vomiting Sodium Bicarbonate (Sodium Bicarbonate Tab) 650 mg PO TID [facility] Last Admin: 12/01/19 09:17 Dose: 650 mg Documented by: Voriconazole (Vfend) 200 mg PO BID [facility] Last Admin: 12/01/19 09:17 Dose: 200 mg Documented by: Physical examination: VITAL SIGNS: 97.4, 96, 20, 146 basically 6, 96% on 3 L GENERAL: Laying in bed,, tired, nasal cannula EYES: Pupils equal. Conjunctiva pale. HEENT: External appearance of nose and ears normal, oral cavity grossly normal. NECK: JVD not raised; masses not palpable. HEART: First and second heart sounds are normal; no edema. LUNGS: Respiratory rate increased, decreased breath sound ABDOMEN: Soft, minimal distention, bowel sounds present, liver spleen not palpable, no masses palpable. PSYCH: Alert and oriented x3; mood and affect-anxious INVESTIGATIONS, reviewed in clinical context: White count 0.8 hemoglobin 9.1 platelets 11 potassium 3.7 bun 49 creatinine 1.83 Abdominal x-ray showed posterior reviewed by me shows air-fluid levels Computed tomography scan of the abdomen showing small bowel obstruction question abdominal thickening of the GE junction. Previous testing White count 0.2 hemoglobin 7.5 platelets 20 potassium 4 bun 41 and creatinine 1.70 CRP 174 pro-calcitonin 1.85 Chest x-ray film personally reviewed by me-questionable chronic infiltrate EKG tracing personally reviewed by me-sinus rhythm with left bundle-branch block Ultrasound lower extremity-negative for DVT Computed tomography scan of the chest-without contrast small bilateral pleural effusion with compressive atelectasis bilateral apical thickening. ABG-pCO2 19 pO2 44 on room air Assessment: -Neutropenic fever in a patient getting chemotherapy for AML. No obvious source of infection. Empirically on linezolid and cefepime-improving -Acute hypoxic respiratory failure. Chest x-ray- question fluid overload. Doppler ultrasound negative for DVT.-Slowly improving - small bowel obstruction-new diagnosis-general surgeon consulted -Pancytopenia secondary to chemotherapy and slow to respond -Severe anemia from pancytopenia-received 1 unit of PRBC -AML-repeat bone marrow showing negative for the same. -Left bundle-branch block -Chronic kidney disease stage IV, multifactorial -Essential hypertension -Hypothyroid -Metabolic acidosis from renal failure-slow to respond -Depression not otherwise specified Plan: Remains on cefepime. We'll start the patient on IV fluids. Make the patient nothing by mouth except for medications. Patient may require NG tube. Patient had received earlier Dulcolax.
[2019-12-02] MEDS: LEVOTHYROXINE 100 MCG TAB PO SCH (05:53)
[2019-12-02 06:51] LABS: Anisocytosis Slight; HCT 29.3 % (34.0-46.0); HGB 9.6 gm/dL (11.4-16.0); Hypochromasia Slight; MCH 29.7 pg (25.0-35.0); MCHC 32.7 g/dL (31.0-37.0); Mean Platelet Volume 10.1; RBC 3.22 m/uL (3.80-5.40); RDW 16.1 % (11.5-15.5)
[2019-12-02 06:56] LABS: Platelet Count 8 k/uL (150-450); WBC 1.2 k/uL (3.8-10.6)
[2019-12-02] MEDS: SODIUM BICARBONATE TAB 650 MG TAB PO SCH ×3 (08:45→21:38)
[2019-12-02] MEDS: FILGRASTIM-SNDZ 300 MCG/0.5 ML SYRINGE SQ SCH (08:45)
[2019-12-02] MEDS: MAGNESIUM OXIDE 400 MG TAB PO SCH ×3 (08:45→21:38)
[2019-12-02] MEDS: hydrALAZINE HCL 25 MG TAB PO SCH ×2 (08:45→21:38)
[2019-12-02] MEDS: FOLIC ACID 1 MG TAB PO SCH (08:46)
[2019-12-02] MEDS: allopurinoL 100 MG TAB PO SCH (08:46)
[2019-12-02] MEDS: ESCITALOPRAM 10 MG TAB PO SCH (08:46)
[2019-12-02] MEDS: amLODIPine 10 MG TAB PO SCH (08:50)
[2019-12-02] MEDS: IPRATROPIUM-ALBUTEROL 3 ML NEB INHALATION SCH ×4 (09:04→20:46)
[2019-12-02] MEDS: VENETOCLAX 100 MG PO SCH (10:15)
[2019-12-02] MEDS: VORICONAZOLE 200 MG TAB PO SCH ×2 (10:15→21:39)
[2019-12-02 11:36] LABS: Band Neutrophils % 3 %; Lymphocytes # (M) 0.16 k/uL (1.0-4.8); Metamyelocytes # (M) 0.01 k/uL (0); Metamyelocytes % 1 %; Monocytes # (M) 0.13 k/uL (0-1.0); Myelocytes # (M) 0.01 k/uL (0); Myelocytes % 1 %; Neutrophils % (M) 71 %; Nucleated Red Blood Cells 0 /100 WBC (0-0); Poikilocytosis (M) Present; Target Cells Present; Total Cells Counted 100
--- NOTE | 2019-12-02 11:46 | P.PN ---
Subjective Progress Note Date: 12/02/19 CHIEF COMPLAINT: Abnormal EKG/bradycardia HISTORY OF PRESENT ILLNESS: Patient examined this morning at the bedside. Denies chest pain or pressure. Denies shortness of breath. Denies lightheadedness or dizziness. Her heart rate is in the 50s. Platelet count today is 8. She is due to receive a platelet transfusion today. PHYSICAL EXAM: VITAL SIGNS: Reviewed. GENERAL: Well-developed in no acute distress. HEENT: Head is normocephalic. Pupils are equal, round. Sclerae anicteric. Mucous membranes of the mouth are moist. Neck supple. No JVD or thyromegaly LUNGS: Respirations even and unlabored. Lungs essentially clear to auscultation bilaterally. HEART: Regular rate and rhythm. S1 and S2 heard. Systolic murmur. EXTREMITIES: Normal range of motion. No clubbing or cyanosis. Peripheral pulses intact. No lower extremity edema NEUROLOGIC: Awake and alert. Oriented x 3. ASSESSMENT: 1. Complete heart block, asymptomatic 2. Hypertension 3. Acute myeloid leukemia, receiving chemotherapy 4. Pancytopenia 5. Mild aortic stenosis PLAN: Repeat EKG today shows second degree heart block, improved from third degree We will continue to monitor patient at this time Will repeat 12-lead EKG tomorrow morning Further recommendations pending patient course Nurse practitioner note has been reviewed by physician. Signing provider agrees with the documented findings, assessment, and plan of care. Objective - Vital Signs Vital signs: Vital Signs Temp 97.6 F 12/02/19 08:30 Pulse 50 L 12/02/19 09:16 Resp 20 12/02/19 08:30 BP 141/60 12/02/19 08:30 Pulse Ox 94 L 12/02/19 08:30 Intake & Output 12/01/19 12/02/19 12/02/19 18:59 06:59 18:59 Intake Total 70 Output Total 1000 325 Balance -1000 -255 Weight 37 kg 41 kg Intake: Intake, IV Titration 50 Amount Cefepime 1 gm In Sodium 50 Chloride 0.9% 50 ml @ 12. 5 mls/hr IVPB Q12H [facility] Rx #:[id number] Oral 20 Output: Urine 1000 325 Straight 500 Other: Voiding Method Diaper Toilet # Voids 1 - Labs CBC & Chem 7: 12/02/19 06:32 12/01/19 06:48 Labs: Abnormal Lab Results - Last 24 Hours (Table) 12/02/19 Range/Units 06:32 WBC 1.2 L* (3.8-10.6) k/uL RBC 3.22 L (3.80-5.40) m/uL Hgb 9.6 L (11.4-16.0) gm/dL Hct 29.3 L (34.0-46.0) % RDW 16.1 H (11.5-15.5) % Plt Count 8 L* (150-450) k/uL Neutrophils # (Manual) 0.80 L (1.3-7.7) k/uL Lymphocytes # (Manual) 0.16 L (1.0-4.8) k/uL Metamyelocytes # (Man) 0.01 H (0) k/uL Myelocytes # (Manual) 0.01 H (0) k/uL Microbiology - Last 24 Hours (Table) 11/26/19 11:45 Blood Culture - Preliminary Blood No Growth after 120 hours 11/26/19 11:47 Blood Culture - Preliminary Blood No Growth after 120 hours
[2019-12-02] MEDS: CEFEPIME 1 GM in SODIUM CHLORIDE 0.9% 50 ML IVPB SCH (11:50)
--- NOTE | 2019-12-02 15:08 | P.PN ---
Subjective Progress Note Date: 12/02/19 CHIEF COMPLAINT: Fever HISTORY OF PRESENT ILLNESS: We're following patient in regards to her small bowel obstruction. Her abdomen is distended and tender. Computed tomography scan did show evidence of small bowel obstruction. Unfortunately due to her platelets of 8 we are unable to put NG tube in place. Patient denies any vomiting. She is afebrile. WBC 1.2 hemoglobin 9.6 platelets 8. She is cur rently nothing by mouth. Computed tomography scan showed small bowel obstruction. PHYSICAL EXAM: VITAL SIGNS: Reviewed. GENERAL: Well-developed in no acute distress. HEENT: No sclera icterus. Extraocular movements grossly intact. Moist buccal mucosa. Head is atraumatic, normocephalic. ABDOMEN: Soft. Distended NEUROLOGIC: Alert and oriented. Cranial nerves II through XII grossly intact. ASSESSMENT: 1. Small bowel obstruction 2. 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 Febrile neutropenia 4. Third-degree heart block followed by cardiology PLAN: -Continue nothing by mouth -Consult dietitian for PPN for nutrition support -Consult for midline placement Physician Content Strategy Lead note has been reviewed by physician. Signing provider agrees with the documented findings, assessment, and plan of care. Objective - Vital Signs Vital signs: Vital Signs Temp 97.3 F L 12/02/19 13:23 Pulse 64 12/02/19 13:23 Resp 18 12/02/19 13:23 BP 113/63 12/02/19 13:23 Pulse Ox 96 12/02/19 13:23 Intake & Output 12/01/19 12/02/19 12/02/19 18:59 06:59 18:59 Intake Total 70 100 Output Total 1000 325 Balance -1000 -255 100 Weight 37 kg 41 kg Intake: Intake, IV Titration 50 Amount Cefepime 1 gm In Sodium 50 Chloride 0.9% 50 ml @ 12. 5 mls/hr IVPB Q12H [facility] [place] Rx #:[id number] Oral 20 100 Blood Product 0 Platelet Irr Pheresis 2 0 Acda Unit [id number] Output: Urine 1000 325 Straight 500 Other: Voiding Method Diaper Toilet # Voids 1 1 - Labs CBC & Chem 7: 12/02/19 06:32 12/01/19 06:48 Labs: Abnormal Lab Results - Last 24 Hours (Table) 12/02/19 Range/Units 06:32 WBC 1.2 L* (3.8-10.6) k/uL RBC 3.22 L (3.80-5.40) m/uL Hgb 9.6 L (11.4-16.0) gm/dL Hct 29.3 L (34.0-46.0) % RDW 16.1 H (11.5-15.5) % Plt Count 8 L* (150-450) k/uL Neutrophils # (Manual) 0.80 L (1.3-7.7) k/uL Lymphocytes # (Manual) 0.16 L (1.0-4.8) k/uL Metamyelocytes # (Man) 0.01 H (0) k/uL Myelocytes # (Manual) 0.01 H (0) k/uL Microbiology - Last 24 Hours (Table) 11/26/19 11:45 Blood Culture - Final Blood No Growth after 144 hours 11/26/19 11:47 Blood Culture - Final Blood No Growth after 144 hours
[2019-12-02] MEDS ORDERED: INSULIN ASPART (NovoLOG) 100 UNIT/ML VIAL SQ SCH (15:45)
[2019-12-02 16:26] LABS: Albumin 3.2 g/dL (3.5-5.0); Calcium 8.6 mg/dL (8.4-10.2); Magnesium 1.8 mg/dL (1.6-2.3); Phosphorus 3.7 mg/dL (2.5-4.5); Potassium 4.1 mmol/L (3.5-5.1); Total Bilirubin 3.5 mg/dL (0.2-1.3); Total Protein 6.6 g/dL (6.3-8.2)
--- NOTE | 2019-12-02 16:55 | P.PN ---
Progress Note - Text Progress Note Date: 12/02/19 Chief Complaint: Fever History of presenting complaint: This is 74-year-old patient who follows with Dr. Boyd. Oncologist is Dr. Merrill. Chronic stable medical conditions include hypertension, hypothyroid, chronic kidney disease,. Patient has been diagnosed with AML. Has been getting chemotherapy. Patient now presents with decreased appetite nausea and vomiting 1 today. Also had fever. 100.3 documented here. Tired and rundown. Admitted for the same. Started on IV fluids. Denies any sores in the mouth. No diarrhea. No skin changes. Admitted with neutropenic fever. Empirically started on vancomycin and Zosyn. Because of renal function changed to linezolid. Also on cefepime. Patient became short of breath. Given a dose of IV Lasix. Decreased oral intake. Computed tomography scan of the chest nonspecific. Doppler ultrasound of lower extremity negative for DVT.I was informed by Yvrose from oncology that patient repeat bone marrow came back negative for AML. G-CSF was started.patient name to small bowel obstruction. rather depressed started on Lexapro. wentinto complete heart block. Today-laying in bed. Tired. Platelet running low. Being transfused. No nausea vomiting. External pacemaker. Pad. Review of systems: Was done for constitutional, cardiovascular, GI, pulmonary. relevant finding as above Active Medications Acetaminophen (Tylenol Tab) 650 mg PO Q6HR PRN PRN Reason: Fever and/ or Pain Last Admin: 11/29/19 08:05 Dose: 650 mg Documented by: Albuterol/Ipratropium (Duoneb 0.5 Mg-3 Mg/3 Ml Soln) 3 ml INHALATION RT-QID [facility] Last Admin: 12/02/19 16:13 Dose: 3 ml Documented by: Allopurinol (Zyloprim) 100 mg PO DAILY [facility] Last Admin: 12/02/19 08:46 Dose: 100 mg Documented by: Amlodipine Besylate (Norvasc) 10 mg PO DAILY [facility] Last Admin: 12/02/19 08:50 Dose: 10 mg Documented by: Calcitriol (Rocaltrol) 0.25 mcg PO TU [facility] Last Admin: 11/30/19 09:09 Dose: 0.25 mcg Documented by: Escitalopram Oxalate (Lexapro) 10 mg PO DAILY [facility] Last Admin: 12/02/19 08:46 Dose: 10 mg Documented by: Filgrastim-Sndz (Zarxio) 300 mcg SQ DAILY [facility] Last Admin: 12/02/19 08:45 Dose: 300 mcg Documented by: Folic Acid (Folic Acid) 1 mg PO DAILY [facility] Last Admin: 12/02/19 08:46 Dose: 1 mg Documented by: Hydralazine HCl (Apresoline) 25 mg PO BID [facility] Last Admin: 12/02/19 08:45 Dose: 25 mg Documented by: Cefepime HCl 1 gm/ Sodium (Chloride) 50 mls @ 12.5 mls/hr IVPB Q12H [facility] Last Admin: 12/02/19 11:50 Dose: 12.5 mls/hr Documented by: Parenteral Vitamin Supplement 10 ml/ Chromium/Copper/Manganese/Seleni/Zn 1 ml/Parenteral Electrolytes 20 ml/Amino Acids/Dextrose 1,031 mls @ 50 mls/hr IV .[id number] [facility] Fat Emulsion Intravenous 250 (ml/ IV Solution) 250 mls @ 21 mls/hr IV DAILY@1800 [facility] Insulin Aspart (Novolog) 0 unit SQ Q6H [facility]; Protocol Levothyroxine Sodium (Synthroid) 100 mcg PO DAILY@0630 [facility] Last Admin: 12/02/19 05:53 Dose: 100 mcg Documented by: Magnesium Oxide (Mag-Ox) 200 mg PO TID [facility] Last Admin: 12/02/19 08:45 Dose: 200 mg Documented by: Miscellaneous Information (Potassium Per Protocol) 1 each MISCELLANE DAILY PRN; Protocol PRN Reason: Per Protocol Venetoclax ( Venclexta) 100 Mg Tablet 1 each PO DAILY [facility] Last Admin: 12/02/19 10:15 Dose: 1 each Documented by: Ondansetron HCl (Zofran) 4 mg IVP Q6HR PRN PRN Reason: Nausea And Vomiting Sodium Bicarbonate (Sodium Bicarbonate Tab) 650 mg PO TID [facility] Last Admin: 12/02/19 08:45 Dose: 650 mg Documented by: Voriconazole (Vfend) 200 mg PO BID [facility] Last Admin: 12/02/19 10:15 Dose: 200 mg Documented by: Physical examination: VITAL SIGNS: 97.3, 64, 18, 113/63, 96% GENERAL: Laying in bed,, tired, nasal cannula EYES: Pupils equal. Conjunctiva pale. HEENT: External appearance of nose and ears normal, oral cavity grossly normal. NECK: JVD not raised; masses not palpable. HEART: First and second heart sounds are normal; no edema. LUNGS: Respiratory rate increased, decreased breath sound ABDOMEN: Soft, somel distention, bowel sounds present, liver spleen not pal pable, no masses palpable. PSYCH: Alert and oriented x3; mood and affect-anxious INVESTIGATIONS, reviewed in clinical context: white count 1.2 hemoglobin 9.6 platelets 8 potassium 4.1 bun 55 creatinine 1.99 Previous testing White count 0.2 hemoglobin 7.5 platelets 20 potassium 4 bun 41 and creatinine 1.70 CRP 174 pro-calcitonin 1.85 Chest x-ray film personally reviewed by me-questionable chronic infiltrate EKG tracing personally reviewed by me-sinus rhythm with left bundle-branch block Ultrasound lower extremity-negative for DVT Computed tomography scan of the chest-without contrast small bilateral pleural effusion with compressive atelectasis bilateral apical thickening. ABG-pCO2 19 pO2 44 on room air Abdominal x-ray showed posterior reviewed by me shows air-fluid levels Computed tomography scan of the abdomen showing small bowel obstruction question abdominal thickening of the GE junction. [id number] heart block Assessment: -Neutropenic fever in a patient getting chemotherapy for AML. No obvious source of infection. Empirically on linezolid and cefepime-improving -Acute hypoxic respiratory failure. Chest x-ray- question fluid overload. Doppler ultrasound negative for DVT.-Slowly improving - small bowel obstruction-slow to respond -Pancytopenia secondary to chemotherapy and slow to respond -Severe anemia from pancytopenia-received 1 unit of PRBC -Severe thrombocytopenia platelets ordered -AML-repeat bone marrow showing negative for the same. -Left bundle-branch block -Complete heart block followed by second-degree heart block -Chronic kidney disease stage IV, multifactorial -Essential hypertension -Hypothyroid -Metabolic acidosis from renal failure-slow to respond -Depression not otherwise specified Plan: Remains on cefepime. - IV fluids. could not receive NG tube because of low platelets. Patient is being transfused.platelets. Tired rundown. Overall not doing well. Discussed with patient.
[2019-12-02 17:56] LABS: Glucose,Whole Blood 63 mg/dL (75-99)
[2019-12-02 18:13] LABS: Glucose,Whole Blood 65 mg/dL (75-99)
[2019-12-02] MEDS ORDERED: DEXTROSE 50% SYRINGE 50 ML IVP ONE (18:15)
[2019-12-02] MEDS: INSULIN ASPART (NovoLOG) 100 UNIT/ML VIAL SQ SCH (18:16)
--- NOTE | 2019-12-02 19:31 | PN ---
PROGRESS NOTE DATE OF SERVICE: 12/02/2019 REASON FOR FOLLOWUP: Possible pneumonia. INTERVAL HISTORY: The patient is currently afebrile. The patient is breathing comfortably. The patient is currently on nasal cannula oxygen at 3 L. the patient denies having nausea, vomiting, abdominal pain or diarrhea. PHYSICAL EXAMINATION: Blood pressure 124/63 with a pulse of 60, temperature 97.4. She is 93% on 3 L nasal cannula. General description is an elderly female lying in bed in no distress. RESPIRATORY SYSTEM: Unlabored breathing with decreased breath sounds at the base. No wheeze. HEART: S1, S2. Regular rate and rhythm. ABDOMEN: Soft. No tenderness. LABS: Hemoglobin 9.6, white count 1.2, BUN of 55, creatinine 1.99. DIAGNOSTIC IMPRESSION AND PLAN: Patient with a fever with concern for pneumonia. The patient did have a CT of the abdomen and pelvis that has been suggestive of small bowel obstruction. The patient is currently covered with cefepime; to continue. We will monitor clinical course closely. MMODL / IJN: [id number] /
[2019-12-02 19:32] LABS: Glucose,Whole Blood 134 mg/dL (75-99)
[2019-12-02] MEDS: MVI, ADULT NO.4 WITH VIT K 10 ML, TRACE (CONC-1ML/DOSE) 1 ML, PARENTERAL ELECTROLYTES 2... IV SCH ×4 (21:39)
[2019-12-02] MEDS: FAT EMULSION 20% 250 ML in EMPTY BAG 1 BAG IV SCH (21:39)
[2019-12-03 00:04] LABS: Glucose,Whole Blood 106 mg/dL (75-99)
[2019-12-03] MEDS: CEFEPIME 1 GM in SODIUM CHLORIDE 0.9% 50 ML IVPB SCH ×2 (01:16→12:07)
[2019-12-03 06:24] LABS: Glucose,Whole Blood 127 mg/dL (75-99)
[2019-12-03] MEDS: LEVOTHYROXINE 100 MCG TAB PO SCH (06:27)
[2019-12-03] MEDS: INSULIN ASPART (NovoLOG) 100 UNIT/ML VIAL SQ SCH ×4 (06:39→19:31)
[2019-12-03 06:54] LABS: Anisocytosis Slight; HCT 27.4 % (34.0-46.0); HGB 8.7 gm/dL (11.4-16.0); Hypochromasia Slight; MCHC 31.7 g/dL (31.0-37.0); MCV 91.5 fL (80.0-100.0); Mean Platelet Volume 9.6; RDW 16.1 % (11.5-15.5); WBC 1.7 k/uL (3.8-10.6)
[2019-12-03 06:57] LABS: Ionized Calcium 5.1 mg/dL (4.5-5.3); Platelet Count 6 k/uL (150-450)
[2019-12-03 07:05] LABS: Calcium 8.5 mg/dL (8.4-10.2); Magnesium 1.9 mg/dL (1.6-2.3); Potassium 3.7 mmol/L (3.5-5.1)
[2019-12-03] MEDS: IPRATROPIUM-ALBUTEROL 3 ML NEB INHALATION SCH ×4 (08:09→18:53)
[2019-12-03 08:12] LABS: Lymphocytes # (M) 0.41 k/uL (1.0-4.8); Monocytes # (M) 0.22 k/uL (0-1.0); Neutrophils # (M) 1.07 k/uL (1.3-7.7); Neutrophils % (M) 63 %; Nucleated Red Blood Cells 0 /100 WBC (0-0); Total Cells Counted 100
[2019-12-03] MEDS: FILGRASTIM-SNDZ 300 MCG/0.5 ML SYRINGE SQ SCH (08:39)
[2019-12-03] MEDS: ESCITALOPRAM 10 MG TAB PO SCH (08:40)
[2019-12-03] MEDS: allopurinoL 100 MG TAB PO SCH (08:40)
[2019-12-03] MEDS: MAGNESIUM OXIDE 400 MG TAB PO SCH ×3 (08:40→22:38)
[2019-12-03] MEDS: SODIUM BICARBONATE TAB 650 MG TAB PO SCH ×3 (08:40→22:38)
[2019-12-03] MEDS: amLODIPine 10 MG TAB PO SCH (08:40)
[2019-12-03] MEDS: hydrALAZINE HCL 25 MG TAB PO SCH ×2 (08:40→22:37)
[2019-12-03] MEDS: FOLIC ACID 1 MG TAB PO SCH (08:40)
[2019-12-03 09:02] LABS: Albumin 3.1 g/dL (3.5-5.0); Total Bilirubin 3.2 mg/dL (0.2-1.3); Total Protein 6.4 g/dL (6.3-8.2)
[2019-12-03] MEDS: VENETOCLAX 100 MG PO SCH (09:59)
[2019-12-03] MEDS: VORICONAZOLE 200 MG TAB PO SCH ×2 (10:00→22:37)
--- NOTE | 2019-12-03 10:32 | P.PN ---
Subjective Progress Note Date: 12/03/19 CHIEF COMPLAINT: Abnormal EKG/bradycardia HISTORY OF PRESENT ILLNESS: Patient examined this morning at the bedside. Denies chest pain or pressure. Denies shortness of breath. Denies lightheadedness or dizziness. Her heart rate is in the 50s. Platelet count today is 6. PHYSICAL EXAM: VITAL SIGNS: Reviewed. GENERAL: Well-developed in no acute distress. HEENT: Head is normocephalic. Pupils are equal, round. Sclerae anicteric. Mucous membranes of the mouth are moist. Neck supple. No JVD or thyromegaly LUNGS: Respirations even and unlabored. Lungs essentially clear to auscultation bilaterally. HEART: Regular rate and rhythm. S1 and S2 heard. Systolic murmur. EXTREMITIES: Normal range of motion. No clubbing or cyanosis. Peripheral pulses intact. No lower extremity edema NEUROLOGIC: Awake and alert. Oriented x 3. ASSESSMENT: 1. Complete heart block, asymptomatic 2. Hypertension 3. Acute myeloid leukemia, receiving chemotherapy 4. Pancytopenia 5. Mild aortic stenosis PLAN: 12 lead EKG today shows second degree heart block, improved from third degree No intervention recommended from a cardiac standpoint We will follow as needed. Please call with questions or concerns Nurse practitioner note has been reviewed by physician. Signing provider agrees with the documented findings, assessment, and plan of care. Objective - Vital Signs Vital signs: Vital Signs Temp 97.9 F 12/03/19 04:31 Pulse 63 12/03/19 08:22 Resp 16 12/03/19 04:31 BP 125/79 12/03/19 04:31 Pulse Ox 94 L 12/03/19 08:09 Intake & Output 12/02/19 12/03/19 12/03/19 18:59 06:59 18:59 Intake Total 407 0 Output Total 1000 Balance 407 -1000 0 Weight 41.5 kg Intake: Oral 100 0 Blood Product 307 Platelet Irr Pheresis 2 307 Acda Unit [id number] Output: Urine 1000 Other: Voiding Method Bedside Commode # Voids 1 1 - Labs CBC & Chem 7: 12/03/19 06:35 12/03/19 06:35 Labs: Abnormal Lab Results - Last 24 Hours (Table) 12/02/19 12/02/19 12/02/19 Range/Units 06:32 15:43 15:46 WBC (3.8-10.6) k/uL RBC (3.80-5.40) m/uL Hgb (11.4-16.0) gm/dL Hct (34.0-46.0) % RDW (11.5-15.5) % Plt Count (150-450) k/uL Neutrophils # (Manual) 0.80 L (1.3-7.7) k/uL Lymphocytes # (Manual) 0.16 L (1.0-4.8) k/uL Metamyelocytes # (Man) 0.01 H (0) k/uL Myelocytes # (Manual) 0.01 H (0) k/uL Chloride 113 H (98-107) mmol/L Carbon Dioxide 14 L (22-30) mmol/L BUN 55 H (7-17) mg/dL Creatinine 1.99 H (0.52-1.04) mg/dL Glucose 61 L (74-99) mg/dL POC Glucose (mg/dL) (75-99) mg/dL Total Bilirubin 3.5 H (0.2-1.3) mg/dL AST 240 H (14-36) U/L ALT 141 H (4-34) U/L Alkaline Phosphatase 300 H (38-126) U/L Albumin 3.2 L 3.2 L (3.5-5.0) g/dL 12/02/19 12/02/19 12/02/19 Range/Units 17:54 18:12 19:29 WBC (3.8-10.6) k/uL RBC (3.80-5.40) m/uL Hgb (11.4-16.0) gm/dL Hct (34.0-46.0) % RDW (11.5-15.5) % Plt Count (150-450) k/uL Neutrophils # (Manual) (1.3-7.7) k/uL Lymphocytes # (Manual) (1.0-4.8) k/uL Metamyelocytes # (Man) (0) k/uL Myelocytes # (Manual) (0) k/uL Chloride (98-107) mmol/L Carbon Dioxide (22-30) mmol/L BUN (7-17) mg/dL Creatinine (0.52-1.04) mg/dL Glucose (74-99) mg/dL POC Glucose (mg/dL) 63 L 65 L 134 H (75-99) mg/dL Total Bilirubin (0.2-1.3) mg/dL AST (14-36) U/L ALT (4-34) U/L Alkaline Phosphatase (38-126) U/L Albumin (3.5-5.0) g/dL 12/03/19 12/03/19 12/03/19 Range/Units 00:02 06:03 06:35 WBC 1.7 L (3.8-10.6) k/uL RBC 3.00 L (3.80-5.40) m/uL Hgb 8.7 L (11.4-16.0) gm/dL Hct 27.4 L (34.0-46.0) % RDW 16.1 H (11.5-15.5) % Plt Count 6 L* (150-450) k/uL Neutrophils # (Manual) 1.07 L (1.3-7.7) k/uL Lymphocytes # (Manual) 0.41 L (1.0-4.8) k/uL Metamyelocytes # (Man) (0) k/uL Myelocytes # (Manual) (0) k/uL Chloride (98-107) mmol/L Carbon Dioxide (22-30) mmol/L BUN (7-17) mg/dL Creatinine (0.52-1.04) mg/dL Glucose (74-99) mg/dL POC Glucose (mg/dL) 106 H 127 H (75-99) mg/dL Total Bilirubin (0.2-1.3) mg/dL AST (14-36) U/L ALT (4-34) U/L Alkaline Phosphatase (38-126) U/L Albumin (3.5-5.0) g/dL 12/03/19 Range/Units 06:35 WBC (3.8-10.6) k/uL RBC (3.80-5.40) m/uL Hgb (11.4-16.0) gm/dL Hct (34.0-46.0) % RDW (11.5-15.5) % Plt Count (150-450) k/uL Neutrophils # (Manual) (1.3-7.7) k/uL Lymphocytes # (Manual) (1.0-4.8) k/uL Metamyelocytes # (Man) (0) k/uL Myelocytes # (Manual) (0) k/uL Chloride 112 H (98-107) mmol/L Carbon Dioxide 21 L (22-30) mmol/L BUN 58 H (7-17) mg/dL Creatinine 1.78 H (0.52-1.04) mg/dL Glucose 111 H (74-99) mg/dL POC Glucose (mg/dL) (75-99) mg/dL Total Bilirubin 3.2 H (0.2-1.3) mg/dL AST 295 H (14-36) U/L ALT 173 H (4-34) U/L Alkaline Phosphatase 303 H (38-126) U/L Albumin 3.1 L (3.5-5.0) g/dL Microbiology - Last 24 Hours (Table) 11/26/19 11:45 Blood Culture - Final Blood No Growth after 144 hours 11/26/19 11:47 Blood Culture - Final Blood No Growth after 144 hours
[2019-12-03] MEDS ORDERED: MAGNESIUM SULFATE-D5W PMX 1 GM in DEXTROSE/WATER 1 100ML.BAG IVPB SCH (12:00)
--- NOTE | 2019-12-03 12:37 | P.PN ---
Subjective Progress Note Date: 12/03/19 CHIEF COMPLAINT: Fever HISTORY OF PRESENT ILLNESS: We're following patient in regards to her small bowel obstruction. Her abdomen is distended. Computed tomography scan did show evidence of small bowel obstruction. Unfortunately due to her platelets of 8 we are unable to insert NG tube. Patient denies any vomiting. She did receive platelet transfusion yesterday. She is afebrile. WBC 1.7 hemoglobin 8.7 platelets 6. AST 295 ALT 173 alk phos 303 total bilirubin 3.2 She is currently nothing by mouth. PHYSICAL EXAM: VITAL SIGNS: Reviewed. GENERAL: Well-developed in no acute distress. HEENT: No sclera icterus. Extraocular movements grossly intact. Moist buccal mucosa. Head is atraumatic, normocephalic. ABDOMEN: Soft. Distended NEUROLOGIC: Alert and oriented. Cranial nerves II through XII grossly intact. ASSESSMENT: 1. Small bowel obstruction 2. 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 Febrile neutropenia 4. Third-degree heart block followed by cardiology 5. Pancytopenia 6. Elevated LFTs PLAN: -Continue conservative treatment -Continue nothing by mouth -Continue PPN for nutrition support -Continue monitor LFTs Physician Cyber Security Consultant note has been reviewed by physician. Signing provider agrees with the documented findings, assessment, and plan of care. Objective - Vital Signs Vital signs: Vital Signs Temp 97.8 F 12/03/19 07:55 Pulse 60 12/03/19 11:28 Resp 18 12/03/19 07:55 BP 149/53 12/03/19 07:55 Pulse Ox 94 L 12/03/19 08:09 Intake & Output 12/02/19 12/03/19 12/03/19 18:59 06:59 18:59 Intake Total 407 0 Output Total 1000 Balance 407 -1000 0 Weight 41.5 kg Intake: Oral 100 0 Blood Product 307 Platelet Irr Pheresis 2 307 Acda Unit [id number] Output: Urine 1000 Other: Voiding Method Bedside Commode # Voids 1 1 - Labs CBC & Chem 7: 12/03/19 06:35 12/03/19 06:35 Labs: Abnormal Lab Results - Last 24 Hours (Table) 12/02/19 12/02/19 12/02/19 Range/Units 15:43 15:46 17:54 WBC (3.8-10.6) k/uL RBC (3.80-5.40) m/uL Hgb (11.4-16.0) gm/dL Hct (34.0-46.0) % RDW (11.5-15.5) % Plt Count (150-450) k/uL Neutrophils # (Manual) (1.3-7.7) k/uL Lymphocytes # (Manual) (1.0-4.8) k/uL Chloride 113 H (98-107) mmol/L Carbon Dioxide 14 L (22-30) mmol/L BUN 55 H (7-17) mg/dL Creatinine 1.99 H (0.52-1.04) mg/dL Glucose 61 L (74-99) mg/dL POC Glucose (mg/dL) 63 L (75-99) mg/dL Total Bilirubin 3.5 H (0.2-1.3) mg/dL AST 240 H (14-36) U/L ALT 141 H (4-34) U/L Alkaline Phosphatase 300 H (38-126) U/L Albumin 3.2 L 3.2 L (3.5-5.0) g/dL 12/02/19 12/02/19 12/03/19 Range/Units 18:12 19:29 00:02 WBC (3.8-10.6) k/uL RBC (3.80-5.40) m/uL Hgb (11.4-16.0) gm/dL Hct (34.0-46.0) % RDW (11.5-15.5) % Plt Count (150-450) k/uL Neutrophils # (Manual) (1.3-7.7) k/uL Lymphocytes # (Manual) (1.0-4.8) k/uL Chloride (98-107) mmol/L Carbon Dioxide (22-30) mmol/L BUN (7-17) mg/dL Creatinine (0.52-1.04) mg/dL Glucose (74-99) mg/dL POC Glucose (mg/dL) 65 L 134 H 106 H (75-99) mg/dL Total Bilirubin (0.2-1.3) mg/dL AST (14-36) U/L ALT (4-34) U/L Alkaline Phosphatase (38-126) U/L Albumin (3.5-5.0) g/dL 12/03/19 12/03/19 12/03/19 Range/Units 06:03 06:35 06:35 WBC 1.7 L (3.8-10.6) k/uL RBC 3.00 L (3.80-5.40) m/uL Hgb 8.7 L (11.4-16.0) gm/dL Hct 27.4 L (34.0-46.0) % RDW 16.1 H (11.5-15.5) % Plt Count 6 L* (150-450) k/uL Neutrophils # (Manual) 1.07 L (1.3-7.7) k/uL Lymphocytes # (Manual) 0.41 L (1.0-4.8) k/uL Chloride 112 H (98-107) mmol/L Carbon Dioxide 21 L (22-30) mmol/L BUN 58 H (7-17) mg/dL Creatinine 1.78 H (0.52-1.04) mg/dL Glucose 111 H (74-99) mg/dL POC Glucose (mg/dL) 127 H (75-99) mg/dL Total Bilirubin 3.2 H (0.2-1.3) mg/dL AST 295 H (14-36) U/L ALT 173 H (4-34) U/L Alkaline Phosphatase 303 H (38-126) U/L Albumin 3.1 L (3.5-5.0) g/dL Microbiology - Last 24 Hours (Table) 11/26/19 11:45 Blood Culture - Final Blood No Growth after 144 hours 11/26/19 11:47 Blood Culture - Final Blood No Growth after 144 hours
[2019-12-03 12:54] LABS: Glucose,Whole Blood 139 mg/dL (75-99)
[2019-12-03] MEDS: POTASSIUM CHLORIDE 10 MEQ in WATER FOR INJECTION 1 100ML.BAG IVPB SCH ×2 (13:33→13:45)
--- NOTE | 2019-12-03 13:51 | P.PN ---
Subjective Progress Note Date: 12/03/19 Principal diagnosis: Pancytopenia, AML Still very weak, platelet transfusion yesterday without increase in platelet count. Objective - Vital Signs Vital signs: Vital Signs Temp 97.8 F 12/03/19 07:55 Pulse 60 12/03/19 11:28 Resp 18 12/03/19 07:55 BP 149/53 12/03/19 07:55 Pulse Ox 94 L 12/03/19 08:09 Intake & Output 12/02/19 12/03/19 12/03/19 18:59 06:59 18:59 Intake Total 407 0 Output Total 1000 Balance 407 -1000 0 Weight 41.5 kg 41.5 kg Intake: Oral 100 0 Blood Product 307 Platelet Irr Pheresis 2 307 Acda Unit [id number] Output: Urine 1000 Other: Voiding Method Bedside Commode # Voids 1 1 - Exam - Constitutional General appearance: Present: cooperative, mild distress, thin - EENT Eyes: Present: anicteric sclerae, EOMI ENT: Present: hearing grossly normal - Respiratory Respiratory: bilateral: CTA (weak inspiratory effort) - Cardiovascular Details: bradycardia Heart sounds: normal: S1, S2 - Peripheral edema leg Peripheral Edema: bilateral: None - Gastrointestinal General gastrointestinal: Present: distended, hyperactive bowel sounds, soft - Neurologic Neurologic: Present: CNII-XII intact - Musculoskeletal Musculoskeletal: Present: generalized weakness - Psychiatric Psychiatric: Present: A&O x's 3 - Labs CBC & Chem 7: 12/01/19 06:48 - Labs CBC & Chem 7: 12/03/19 06:35 12/03/19 06:35 Labs: Abnormal Lab Results - Last 24 Hours (Table) 12/02/19 12/02/19 12/02/19 Range/Units 15:43 15:46 17:54 WBC (3.8-10.6) k/uL RBC (3.80-5.40) m/uL Hgb (11.4-16.0) gm/dL Hct (34.0-46.0) % RDW (11.5-15.5) % Plt Count (150-450) k/uL Neutrophils # (Manual) (1.3-7.7) k/uL Lymphocytes # (Manual) (1.0-4.8) k/uL Chloride 113 H (98-107) mmol/L Carbon Dioxide 14 L (22-30) mmol/L BUN 55 H (7-17) mg/dL Creatinine 1.99 H (0.52-1.04) mg/dL Glucose 61 L (74-99) mg/dL POC Glucose (mg/dL) 63 L (75-99) mg/dL Total Bilirubin 3.5 H (0.2-1.3) mg/dL AST 240 H (14-36) U/L ALT 141 H (4-34) U/L Alkaline Phosphatase 300 H (38-126) U/L Albumin 3.2 L 3.2 L (3.5-5.0) g/dL 12/02/19 12/02/19 12/03/19 Range/Units 18:12 19:29 00:02 WBC (3.8-10.6) k/uL RBC (3.80-5.40) m/uL Hgb (11.4-16.0) gm/dL Hct (34.0-46.0) % RDW (11.5-15.5) % Plt Count (150-450) k/uL Neutrophils # (Manual) (1.3-7.7) k/uL Lymphocytes # (Manual) (1.0-4.8) k/uL Chloride (98-107) mmol/L Carbon Dioxide (22-30) mmol/L BUN (7-17) mg/dL Creatinine (0.52-1.04) mg/dL Glucose (74-99) mg/dL POC Glucose (mg/dL) 65 L 134 H 106 H (75-99) mg/dL Total Bilirubin (0.2-1.3) mg/dL AST (14-36) U/L ALT (4-34) U/L Alkaline Phosphatase (38-126) U/L Albumin (3.5-5.0) g/dL 12/03/19 12/03/19 12/03/19 Range/Units 06:03 06:35 06:35 WBC 1.7 L (3.8-10.6) k/uL RBC 3.00 L (3.80-5.40) m/uL Hgb 8.7 L (11.4-16.0) gm/dL Hct 27.4 L (34.0-46.0) % RDW 16.1 H (11.5-15.5) % Plt Count 6 L* (150-450) k/uL Neutrophils # (Manual) 1.07 L (1.3-7.7) k/uL Lymphocytes # (Manual) 0.41 L (1.0-4.8) k/uL Chloride 112 H (98-107) mmol/L Carbon Dioxide 21 L (22-30) mmol/L BUN 58 H (7-17) mg/dL Creatinine 1.78 H (0.52-1.04) mg/dL Glucose 111 H (74-99) mg/dL POC Glucose (mg/dL) 127 H (75-99) mg/dL Total Bilirubin 3.2 H (0.2-1.3) mg/dL AST 295 H (14-36) U/L ALT 173 H (4-34) U/L Alkaline Phosphatase 303 H (38-126) U/L Albumin 3.1 L (3.5-5.0) g/dL 12/03/19 Range/Units 12:25 WBC (3.8-10.6) k/uL RBC (3.80-5.40) m/uL Hgb (11.4-16.0) gm/dL Hct (34.0-46.0) % RDW (11.5-15.5) % Plt Count (150-450) k/uL Neutrophils # (Manual) (1.3-7.7) k/uL Lymphocytes # (Manual) (1.0-4.8) k/uL Chloride (98-107) mmol/L Carbon Dioxide (22-30) mmol/L BUN (7-17) mg/dL Creatinine (0.52-1.04) mg/dL Glucose (74-99) mg/dL POC Glucose (mg/dL) 139 H (75-99) mg/dL Total Bilirubin (0.2-1.3) mg/dL AST (14-36) U/L ALT (4-34) U/L Alkaline Phosphatase (38-126) U/L Albumin (3.5-5.0) g/dL Microbiology - Last 24 Hours (Table) 11/26/19 11:45 Blood Culture - Final Blood No Growth after 144 hours 11/26/19 11:47 Blood Culture - Final Blood No Growth after 144 hours Assessment and Plan Plan: Assessment and recommendations: Small bowel obstruction: - No BM for 6 days. 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 - Her oral venetoclax was held for low counts and presentation. - Will restart after resolution od SBO. - Recent bone marrow biopsy showing no residual acute leukemia! - GCSF was administered and was started 11/29. She will see Dr. Chavez in 2 weeks. - Dacogen on hold last treatment 11/03 Left upper ex picc associated DVT - No AC therapy with Thrombocytopenia Pancytopenia - Secondary to AML and Chemo - improved - Continue to monitor daily - Supportive transfusions PRN - Patient's recent bone marrow biopsy showed no residual leukemia! Patient started and to continue on G-CSF - transfuse PRBC irradiated today hemoglobin less than 7 - Transfuse platelets less than 10K Third degree heart block: - Cardiology following PLAN: - Platelets are 6K. She did have a transfusion yesterday, although did not respond. She has required crossmatched in the past for refractory, therefore will set this up for next week anticipating 2 units. In the interim continue SDP irradiated platelet less than 10. - Conservative treatment SBO given thrombocytopenia, surgery continues to follow Physician Attest: I have completed the full history and physical and developed the impression and plan, agree with above dictation dictated as a scribe.
[2019-12-03 17:11] LABS: Glucose,Whole Blood 119 mg/dL (75-99)
--- NOTE | 2019-12-03 17:22 | PN ---
PROGRESS NOTE DATE OF SERVICE: 12/03/2019 REASON FOR FOLLOWUP: Febrile neutropenia and a question of pneumonia. INTERVAL HISTORY: The patient is currently afebrile, patient is breathing comfortably. The patient denies having any chest pain. Minimal cough. No nausea, no vomiting. No abdominal pain. No diarrhea. PHYSICAL EXAMINATION: Blood pressure 149/70 with a pulse of 64, temperature 97.4. She is 95% on 3 L nasal cannula. General description is an elderly female, lying in bed in no distress. RESPIRATORY SYSTEM: Unlabored breathing, decreased breath sounds at bases, no wheeze. HEART: S1, S2. Regular rate and rhythm. ABDOMEN: Soft, no tenderness. LABS: Hemoglobin 8.7, white count 1.7, BUN of 58, creatinine 1.78. Blood culture has been negative so far. DIAGNOSTIC IMPRESSION AND PLAN: Patient admitted to hospital who did have febrile neutropenia with initial concern for possible PICC line infection. However, that has been ruled out with negative blood cultures and a question of possible pneumonia. Patient is covered cefepime which will be continued and will monitor clinical course closely. MMODL / IJN: [id number] /
[2019-12-03] MEDS: FAT EMULSION 20% 250 ML in EMPTY BAG 1 BAG IV SCH (19:03)
[2019-12-03] MEDS: MVI, ADULT NO.4 WITH VIT K 10 ML, TRACE (CONC-1ML/DOSE) 1 ML, PARENTERAL ELECTROLYTES 2... IV SCH ×4 (19:03)
[2019-12-03] MEDS: ACETAMINOPHEN TAB 325 MG TAB PO PRN (20:21)
--- NOTE | 2019-12-03 22:02 | P.PN ---
Progress Note - Text Progress Note Date: 12/03/19 Chief Complaint: Fever History of presenting complaint: This is 74-year-old patient who follows with Dr. Boyd. Oncologist is Dr. Merrill. Chronic stable medical conditions include hypertension, hypothyroid, chronic kidney disease,. Patient has been diagnosed with AML. Has been getting chemotherapy. Patient now presents with decreased appetite nausea and vomiting 1 today. Also had fever. 100.3 documented here. Tired and rundown. Admitted for the same. Started on IV fluids. Denies any sores in the mouth. No diarrhea. No skin changes. Admitted with neutropenic fever. Empirically started on vancomycin and Zosyn. Because of renal function changed to linezolid. Also on cefepime. Patient became short of breath. Given a dose of IV Lasix. Decreased oral intake. Computed tomography scan of the chest nonspecific. Doppler ultrasound of lower extremity negative for DVT.I was informed by Yvrose from oncology that patient repeat bone marrow came back negative for AML. G-CSF was started.had small bowel obstruction-no NG tube because of low platelets.. rather depressed started on Lexapro. went into complete heart block-then 2 second-degree heart block. No further intervention per cardiology.. irradiated PRBC and platelets transfused. Placed on TPN. Today-laying in bed. Tired. Platelet running low. External pad . No bowel movement. No bowel pain. Abdomen doesn't feel distended. Review of systems: Was done for constitutional, cardiovascular, GI, pulmonary. relevant finding as above Active Medications Acetaminophen (Tylenol Tab) 650 mg PO Q6HR PRN PRN Reason: Fever and/ or Pain Last Admin: 12/03/19 20:21 Dose: 650 mg Documented by: Albuterol/Ipratropium (Duoneb 0.5 Mg-3 Mg/3 Ml Soln) 3 ml INHALATION RT-QID [facility] Last Admin: 12/03/19 18:53 Dose: 3 ml Documented by: Allopurinol (Zyloprim) 100 mg PO DAILY [facility] Last Admin: 12/03/19 08:40 Dose: 100 mg Documented by: Amlodipine Besylate (Norvasc) 10 mg PO DAILY [facility] Last Admin: 12/03/19 08:40 Dose: 10 mg Documented by: Calcitriol (Rocaltrol) 0.25 mcg PO TU [facility] Last Admin: 11/30/19 09:09 Dose: 0.25 mcg Documented by: Escitalopram Oxalate (Lexapro) 10 mg PO DAILY [facility] Last Admin: 12/03/19 08:40 Dose: 10 mg Documented by: Filgrastim-Sndz (Zarxio) 300 mcg SQ DAILY [facility] Last Admin: 12/03/19 08:39 Dose: 300 mcg Documented by: Folic Acid (Folic Acid) 1 mg PO DAILY [facility] Last Admin: 12/03/19 08:40 Dose: 1 mg Documented by: Hydralazine HCl (Apresoline) 25 mg PO BID [facility] Last Admin: 12/03/19 08:40 Dose: 25 mg Documented by: Cefepime HCl 1 gm/ Sodium (Chloride) 50 mls @ 12.5 mls/hr IVPB Q12H [facility] Last Admin: 12/03/19 12:07 Dose: 12.5 mls/hr Documented by: Parenteral Vitamin Supplement 10 ml/ Chromium/Copper/Manganese/Seleni/Zn 1 ml/Parenteral Electrolytes 20 ml/Amino Acids/Dextrose 1,031 mls @ 50 mls/hr IV .[id number] [facility] Last Admin: 12/03/19 19:03 Dose: 50 mls/hr Documented by: Fat Emulsion Intravenous 250 (ml/ IV Solution) 250 mls @ 21 mls/hr IV DAILY@1800 [facility] Last Admin: 12/03/19 19:03 Dose: 21 mls/hr Documented by: Insulin Aspart (Novolog) 0 unit SQ Q6H [facility]; Protocol Last Admin: 12/03/19 19:31 Dose: Not Given Documented by: Levothyroxine Sodium (Synthroid) 100 mcg PO DAILY@0630 [facility] Last Admin: 12/03/19 06:27 Dose: 100 mcg Documented by: Magnesium Oxide (Mag-Ox) 200 mg PO TID [facility] Last Admin: 12/03/19 16:38 Dose: 200 mg Documented by: Miscellaneous Information (Potassium Per Protocol) 1 each MISCELLANE DAILY PRN; Protocol PRN Reason: Per Protocol Venetoclax ( Venclexta) 100 Mg Tablet 1 each PO DAILY [facility] Last Admin: 12/03/19 09:59 Dose: 1 each Documented by: Ondansetron HCl (Zofran) 4 mg IVP Q6HR PRN PRN Reason: Nausea And Vomiting Sodium Bicarbonate (Sodium Bicarbonate Tab) 650 mg PO TID [facility] Last Admin: 12/03/19 16:38 Dose: 650 mg Documented by: Voriconazole (Vfend) 200 mg PO BID [facility] Last Admin: 12/03/19 10:00 Dose: 200 mg Documented by: Physical examination: VITAL SIGNS: 97.6, 55, 20, 1 42 x 75, 97% on 3 L GENERAL: Propped up in bed, tired, nasal cannula EYES: Pupils equal. Conjunctiva pale. HEENT: External appearance of nose and ears normal, oral cavity grossly normal. NECK: JVD not raised; masses not palpable. HEART: First and second heart sounds are normal; no edema. LUNGS: Respiratory rate increased, decreased breath sound ABDOMEN: Soft, no tenderness, somel distention, bowel sounds present, liver spleen not palpable, no masses palpable. PSYCH: Alert and oriented x3; mood and affect-anxious INVESTIGATIONS, reviewed in clinical context: White count 1.7 hemoglobin 8.7 platelets 6 potassium 3.7 bun 58 creatinine 1.78 Previous testing White count 0.2 hemoglobin 7.5 platelets 20 potassium 4 bun 41 and creatinine 1.70 CRP 174 pro-calcitonin 1.85 Chest x-ray film personally reviewed by me-questionable chronic infiltrate EKG tracing personally reviewed by me-sinus rhythm with left bundle-branch block Ultrasound lower extremity-negative for DVT Computed tomography scan of the chest-without contrast small bilateral pleural effusion with compressive atelectasis bilateral apical thickening. ABG-pCO2 19 pO2 44 on room air Abdominal x-ray showed posterior reviewed by me shows air-fluid levels Computed tomography scan of the abdomen showing small bowel obstruction question abdominal thickening of the GE junction. [id number] heart block Assessment: -Neutropenic fever in a patient getting chemotherapy for AML. No obvious source of infection. Empirically on linezolid and cefepime-. Picklike infection ruled out. Linezolid discontinued. Possible pneumonia -Acute hypoxic respiratory failure. Chest x-ray- question fluid overload. Doppler ultrasound negative for DVT.-Slowly improving - small bowel obstruction-slow to respond -Pancytopenia secondary to chemotherapy and slow to respond -Severe anemia from pancytopenia-received PRBC -Severe thrombocytopenia platelets given -AML-repeat bone marrow showing negative for the same. -Left bundle-branch block -Complete heart block followed by second-degree heart block-no further intervention per cardiology -Chronic kidney disease stage IV, multifactorial -Essential hypertension -Hypothyroid -Metabolic acidosis from renal failure-slow to respond -Depression not otherwise specified -IV TPN Plan: Remains on cefepime. - IV fluids. Getting TPN. Follow conservatively. Platelets RBC to be transfused per oncology. Prognosis guarded.
[2019-12-03 23:51] LABS: HCT 25.3 % (34.0-46.0); HGB 8.2 gm/dL (11.4-16.0); MCH 29.2 pg (25.0-35.0); MCHC 32.3 g/dL (31.0-37.0); MCV 90.3 fL (80.0-100.0); Mean Platelet Volume 11.3; RBC 2.81 m/uL (3.80-5.40); WBC 1.8 k/uL (3.8-10.6)
[2019-12-04 00:15] LABS: Glucose,Whole Blood 100 mg/dL (75-99)
[2019-12-04] MEDS: CEFEPIME 1 GM in SODIUM CHLORIDE 0.9% 50 ML IVPB SCH ×2 (00:23→12:21)
[2019-12-04] MEDS: INSULIN ASPART (NovoLOG) 100 UNIT/ML VIAL SQ SCH ×4 (00:44→18:27)
[2019-12-04 00:59] LABS: Band Neutrophils % 5 %; Lymphocytes # (M) 0.36 k/uL (1.0-4.8); Monocytes # (M) 0.47 k/uL (0-1.0); Neutrophils % (M) 49 %; Nucleated Red Blood Cells 0 /100 WBC (0-0); Total Cells Counted 100
[2019-12-04 01:01] LABS: Platelet Count 3 k/uL (150-450)
[2019-12-04 06:30] LABS: Glucose,Whole Blood 107 mg/dL (75-99)
[2019-12-04] MEDS: LEVOTHYROXINE 100 MCG TAB PO SCH (06:50)
[2019-12-04 06:53] LABS: Anisocytosis Slight; HCT 25.4 % (34.0-46.0); HGB 8.3 gm/dL (11.4-16.0); Hypochromasia Slight; MCH 29.7 pg (25.0-35.0); MCHC 32.6 g/dL (31.0-37.0); Mean Platelet Volume 8.6; RBC 2.79 m/uL (3.80-5.40); WBC 2.2 k/uL (3.8-10.6)
[2019-12-04 06:55] LABS: Platelet Count 42 k/uL (150-450)
[2019-12-04 07:05] LABS: Albumin 2.9 g/dL (3.5-5.0); Calcium 8.2 mg/dL (8.4-10.2); Magnesium 1.8 mg/dL (1.6-2.3); Phosphorus 3.3 mg/dL (2.5-4.5); Potassium 3.8 mmol/L (3.5-5.1); Total Bilirubin 3.3 mg/dL (0.2-1.3); Total Protein 6.2 g/dL (6.3-8.2)
[2019-12-04] MEDS: IPRATROPIUM-ALBUTEROL 3 ML NEB INHALATION SCH ×4 (08:14→19:57)
[2019-12-04] MEDS: hydrALAZINE HCL 25 MG TAB PO SCH ×2 (09:12→20:50)
[2019-12-04] MEDS: FOLIC ACID 1 MG TAB PO SCH (09:12)
[2019-12-04] MEDS: ESCITALOPRAM 10 MG TAB PO SCH (09:12)
[2019-12-04] MEDS: MAGNESIUM OXIDE 400 MG TAB PO SCH ×3 (09:12→20:49)
[2019-12-04] MEDS: amLODIPine 10 MG TAB PO SCH (09:12)
[2019-12-04] MEDS: SODIUM BICARBONATE TAB 650 MG TAB PO SCH ×3 (09:12→20:49)
[2019-12-04] MEDS: allopurinoL 100 MG TAB PO SCH (09:13)
[2019-12-04] MEDS: VENETOCLAX 100 MG PO SCH (09:14)
[2019-12-04] MEDS: VORICONAZOLE 200 MG TAB PO SCH ×2 (09:14→20:50)
--- NOTE | 2019-12-04 09:24 | P.PN ---
Subjective Progress Note Date: 12/04/19 Principal diagnosis: Bowel obstruction Patient complains of fatigue. Denies abdominal pain. No flatus or bowel movement. Denies nausea or vomiting. Platelet count up to 42 after transfusion of platelets yesterday around noon. Remains nothing by mouth. Objective - Vital Signs Vital signs: Vital Signs Temp 98.2 F 12/04/19 06:52 Pulse 58 L 12/04/19 06:52 Resp 16 12/04/19 06:52 BP 134/67 12/04/19 06:52 Pulse Ox 98 12/04/19 05:35 Intake & Output 12/03/19 12/04/19 12/04/19 18:59 06:59 18:59 Intake Total 2449 861 Output Total 400 1000 Balance 9 -139 Weight 41.5 kg 35 kg Intake: IV 5 Invasive Line 2 5 Intake, IV Titration 1744 300 Amount Cefepime 1 gm In Sodium 50 50 Chloride 0.9% 50 ml @ 12. 5 mls/hr IVPB Q12H [facility] Rx #:[id number] Fat Emulsion 20% 250 ml 63 250 In Empty Bag 1 bag @ 21 mls/hr IV DAILY@1800 [facility] Rx#:[id number] Mvi, Adult No.4 with Vit 1431 K 10 ml Trace (Conc-1Ml/ Dose) 1 ml Parenteral Electrolytes 20 ml In Amino Acid 4.25%-D10w 1, 000 ml @ 50 mls/hr IV . [id number] [facility] Rx#:[id number] Potassium Chloride 10 meq 200 In Water For Injection 1 100ml.bag @ 100 mls/hr IVPB Q1H [facility] Rx#: [id number] Oral 700 Blood Product 561 Platelet Irr Pheresis Pas 321 -C Unit [id number] Output: Urine 400 1000 Other: Voiding Method Bedside Commode - Exam Abdomen: Soft, mild distention, no tenderness - Labs CBC & Chem 7: 12/04/19 06:35 12/04/19 06:35 Labs: Abnormal Lab Results - Last 24 Hours (Table) 12/03/19 12/03/19 12/03/19 Range/Units 12:25 16:54 23:40 WBC 1.8 L (3.8-10.6) k/uL RBC 2.81 L (3.80-5.40) m/uL Hgb 8.2 L (11.4-16.0) gm/dL Hct 25.3 L (34.0-46.0) % RDW 16.0 H (11.5-15.5) % Plt Count 3 L* (150-450) k/uL Neutrophils # (Manual) 0.90 L (1.3-7.7) k/uL Lymphocytes # (Manual) 0.36 L (1.0-4.8) k/uL Chloride (98-107) mmol/L BUN (7-17) mg/dL Creatinine (0.52-1.04) mg/dL Glucose (74-99) mg/dL POC Glucose (mg/dL) 139 H 119 H (75-99) mg/dL Calcium (8.4-10.2) mg/dL Total Bilirubin (0.2-1.3) mg/dL AST (14-36) U/L ALT (4-34) U/L Alkaline Phosphatase (38-126) U/L Total Protein (6.3-8.2) g/dL Albumin (3.5-5.0) g/dL 12/04/19 12/04/19 12/04/19 Range/Units 00:12 06:20 06:35 WBC (3.8-10.6) k/uL RBC (3.80-5.40) m/uL Hgb (11.4-16.0) gm/dL Hct (34.0-46.0) % RDW (11.5-15.5) % Plt Count (150-450) k/uL Neutrophils # (Manual) (1.3-7.7) k/uL Lymphocytes # (Manual) (1.0-4.8) k/uL Chloride 109 H (98-107) mmol/L BUN 58 H (7-17) mg/dL Creatinine 1.41 H (0.52-1.04) mg/dL Glucose 101 H (74-99) mg/dL POC Glucose (mg/dL) 100 H 107 H (75-99) mg/dL Calcium 8.2 L (8.4-10.2) mg/dL Total Bilirubin 3.3 H (0.2-1.3) mg/dL AST 304 H (14-36) U/L ALT 218 H (4-34) U/L Alkaline Phosphatase 284 H (38-126) U/L Total Protein 6.2 L (6.3-8.2) g/dL Albumin 2.9 L (3.5-5.0) g/dL 12/04/19 Range/Units 06:35 WBC 2.2 L (3.8-10.6) k/uL RBC 2.79 L (3.80-5.40) m/uL Hgb 8.3 L (11.4-16.0) gm/dL Hct 25.4 L (34.0-46.0) % RDW 16.0 H (11.5-15.5) % Plt Count 42 L D (150-450) k/uL Neutrophils # (Manual) (1.3-7.7) k/uL Lymphocytes # (Manual) (1.0-4.8) k/uL Chloride (98-107) mmol/L BUN (7-17) mg/dL Creatinine (0.52-1.04) mg/dL Glucose (74-99) mg/dL POC Glucose (mg/dL) (75-99) mg/dL Calcium (8.4-10.2) mg/dL Total Bilirubin (0.2-1.3) mg/dL AST (14-36) U/L ALT (4-34) U/L Alkaline Phosphatase (38-126) U/L Total Protein (6.3-8.2) g/dL Albumin (3.5-5.0) g/dL Assessment and Plan (1) Small bowel obstruction Narrative/Plan: Continue nothing by mouth for now. Continue to monitor CBC. Increase activity as tolerated. Monitor for bowel activity. Current Visit: Yes Status: Acute Priority: High Code(s): K56.609 - UNSP INTESTNL OBST, UNSP TO PARTIAL VERSUS COMPLETE OBST SNOMED Code(s): 218496185
[2019-12-04] MEDS: FILGRASTIM-SNDZ 300 MCG/0.5 ML SYRINGE SQ SCH (12:20)
[2019-12-04 12:37] LABS: Glucose,Whole Blood 110 mg/dL (75-99)
--- NOTE | 2019-12-04 13:44 | XR ---
EXAMINATION TYPE: XR abdomen 2V DATE OF EXAM: 12/04/2019 CLINICAL DATA: 74-year-old female follow-up ileus, [facility] COMPARISON: 11/30/2019 FINDINGS: No evidence for free air. There is some small effusion suspected. CVC tip at the caval atri al junction. Persistent diffuse dilated small bowel loops measuring up to 3.9 cm currently versus up to 4.5 cm, pr eviously. Some scattered colonic air is present at the splenic flexure and rectum. IMPRESSION: 1. Persistent diffusely dilated small bowel loops measuring up to 3.9 cm though improving as compared to 11/30/2019 where loops measured up to 4.5 cm. 2. Some colonic air is also now visualized at the splenic flexure and rectum. Findings suggest persis tent but improving small bowel obstruction versus ileus. 3. Small bilateral pleural effusions. 4. No free air.
--- NOTE | 2019-12-04 15:43 | PN ---
PROGRESS NOTE DATE OF SERVICE: 12/04/2019 REASON FOR FOLLOWUP: Possible pneumonia. INTERVAL HISTORY: Patient is currently afebrile. The patient is breathing comfortably. Denies having any chest pain or shortness of breath or cough. No significant abdominal pain. No vomiting or diarrhea reported. PHYSICAL EXAMINATION: Blood pressure 134/67 with pulse of 58, temperature 98.2. She is 98% on 3 L nasal cannula. General description is an elderly female lying in bed in no distress. Respiratory system: Unlabored breathing, clear to auscultation anteriorly. Heart S1, S2. Regular rate and rhythm. Abdomen soft, no tenderness. LABS: Hemoglobin 8.1, white count 2.2, BUN of 15, creatinine 1.41. Blood culture negative. Abdominal x-ray, small bowel loops dilated, improving small bowel obstruction versus areas. DIAGNOSTIC IMPRESSION AND PLAN: Patient admitted to the hospital with febrile neutropenia, initial concern for possible infection. However, culture has been negative. Also with a possible component of pneumonia, now with ileus. The patient is covered with cefepime. Has been afebrile. Cultures have been negative. Continue current antibiotic and monitor clinical course closely. MMODL / IJN: [id number] /
--- NOTE | 2019-12-04 17:50 | P.PN ---
Progress Note - Text Progress Note Date: 12/04/19 Chief Complaint: Fever History of presenting complaint: This is 74-year-old patient who follows with Dr. Boyd. Oncologist is Dr. Merrill. Chronic stable medical conditions include hypertension, hypothyroid, chronic kidney disease,. Patient has been diagnosed with AML. Has been getting chemotherapy. Patient now presents with decreased appetite nausea and vomiting 1 today. Also had fever. 100.3 documented here. Tired and rundown. Admitted for the same. Started on IV fluids. Denies any sores in the mouth. No diarrhea. No skin changes. Admitted with neutropenic fever. Empirically started on vancomycin and Zosyn. Because of renal function changed to linezolid. Also on cefepime. Patient became short of breath. Given a dose of IV Lasix. Decreased oral intake. Computed tomography scan of the chest nonspecific. Doppler ultrasound of lower extremity negative for DVT.I was informed by Yvrose from oncology that patient repeat bone marrow came back negative for AML. G-CSF was started.had small bowel obstruction-no NG tube because of low platelets.. rather depressed started on Lexapro. went into complete heart block-then 2 second-degree heart block. No further intervention per cardiology.. irradiated PRBC and platelets transfused. Placed on TPN. Today-diet. Sitting up in bed. Remains nothing by mouth. Did pass some flatus. No abdominal distention. No nausea vomiting. No abdominal pain. Getting IV TPN. Review of systems: Was done for constitutional, cardiovascular, GI, pulmonary. relevant finding as above Active Medications Acetaminophen (Tylenol Tab) 650 mg PO Q6HR PRN PRN Reason: Fever and/ or Pain Last Admin: 12/03/19 20:21 Dose: 650 mg Documented by: Albuterol/Ipratropium (Duoneb 0.5 Mg-3 Mg/3 Ml Soln) 3 ml INHALATION RT-QID [facility] Last Admin: 12/04/19 15:49 Dose: Not Given Documented by: Allopurinol (Zyloprim) 100 mg PO DAILY [facility] Last Admin: 12/04/19 09:13 Dose: 100 mg Documented by: Amlodipine Besylate (Norvasc) 10 mg PO DAILY [facility] Last Admin: 12/04/19 09:12 Dose: 10 mg Documented by: Calcitriol (Rocaltrol) 0.25 mcg PO TU [facility] Last Admin: 11/30/19 09:09 Dose: 0.25 mcg Documented by: Escitalopram Oxalate (Lexapro) 10 mg PO DAILY [facility] Last Admin: 12/04/19 09:12 Dose: 10 mg Documented by: Filgrastim-Sndz (Zarxio) 300 mcg SQ DAILY [facility] Last Admin: 12/04/19 12:20 Dose: 300 mcg Documented by: Folic Acid (Folic Acid) 1 mg PO DAILY [facility] Last Admin: 12/04/19 09:12 Dose: 1 mg Documented by: Hydralazine HCl (Apresoline) 25 mg PO BID [facility] Last Admin: 12/04/19 09:12 Dose: 25 mg Documented by: Cefepime HCl 1 gm/ Sodium (Chloride) 50 mls @ 12.5 mls/hr IVPB Q12H [facility] Last Admin: 12/04/19 12:21 Dose: 12.5 mls/hr Documented by: Parenteral Vitamin Supplement 10 ml/ Chromium/Copper/Manganese/Seleni/Zn 1 ml/Parenteral Electrolytes 20 ml/Amino Acids/Dextrose 1,031 mls @ 50 mls/hr IV .[id number] [facility] Last Admin: 12/03/19 19:03 Dose: 50 mls/hr Documented by: Fat Emulsion Intravenous 250 (ml/ IV Solution) 250 mls @ 21 mls/hr IV DAILY@1800 [facility] Last Admin: 12/03/19 19:03 Dose: 21 mls/hr Documented by: Insulin Aspart (Novolog) 0 unit SQ Q6H [facility]; Protocol Last Admin: 12/04/19 12:40 Dose: Not Given Documented by: Levothyroxine Sodium (Synthroid) 100 mcg PO DAILY@0630 [facility] Last Admin: 12/04/19 06:50 Dose: 100 mcg Documented by: Magnesium Oxide (Mag-Ox) 200 mg PO TID [facility] Last Admin: 12/04/19 17:46 Dose: Not Given Documented by: Miscellaneous Information (Potassium Per Protocol) 1 each MISCELLANE DAILY PRN; Protocol PRN Reason: Per Protocol Venetoclax ( Venclexta) 100 Mg Tablet 1 each PO DAILY [facility] Last Admin: 12/04/19 09:14 Dose: 1 each Documented by: Ondansetron HCl (Zofran) 4 mg IVP Q6HR PRN PRN Reason: Nausea And Vomiting Sodium Bicarbonate (Sodium Bicarbonate Tab) 650 mg PO TID [facility] Last Admin: 12/04/19 17:46 Dose: Not Given Documented by: Voriconazole (Vfend) 200 mg PO BID [facility] Last Admin: 12/04/19 09:14 Dose: 200 mg Documented by: Physical examination: VITAL SIGNS: 98.2, 33, 16, 160/65, 93% room air GENERAL: Propped up in bed, tired, nasal cannula EYES: Pupils equal. Conjunctiva pale. HEENT: External appearance of nose and ears normal, oral cavity grossly normal. NECK: JVD not raised; masses not palpable. HEART: First and second heart sounds are normal; no edema. LUNGS: Respiratory rate increased, decreased breath sound ABDOMEN: Soft, no tenderness, some distention, bowel sounds present, liver spleen not palpable, no masses palpable. PSYCH: Alert and oriented x3; mood and affect-anxious INVESTIGATIONS, reviewed in clinical context: White count 2.2 hemoglobin 8.3 platelets 42 potassium 3.8 creatinine 1.41 Abdominal x-ray film personally reviewed by me shows dilated small bowels Previous testing White count 0.2 hemoglobin 7.5 platelets 20 potassium 4 bun 41 and creatinine 1.70 CRP 174 pro-calcitonin 1.85 Chest x-ray film personally reviewed by me-questionable chronic infiltrate EKG tracing personally reviewed by me-sinus rhythm with left bundle-branch block Ultrasound lower extremity-negative for DVT Computed tomography scan of the chest-without contrast small bilateral pleural effusion with compressive atelectasis bilateral apical thickening. ABG-pCO2 19 pO2 44 on room air Abdominal x-ray showed posterior reviewed by me shows air-fluid levels Computed tomography scan of the abdomen showing small bowel obstruction question abdominal thickening of the GE junction. [id number] heart block Assessment: -Neutropenic fever in a patient getting chemotherapy for AML. No obvious source of infection. Empirically on linezolid and cefepime-. Picklike infection ruled out. Linezolid discontinued. Possible pneumonia -Acute hypoxic respiratory failure. Chest x-ray- question fluid overload. Doppler ultrasound negative for DVT.-Slowly improving - small bowel obstruction-persistent, slow to respond -Pancytopenia secondary to chemotherapy and slow to respond -Severe anemia from pancytopenia-received PRBC -Severe thrombocytopenia platelets given -AML-repeat bone marrow showing negative for the same. -Left bundle-branch block -Complete heart block followed by second-degree heart block-no further intervention per cardiology-slow to respond -Chronic kidney disease stage IV, multifactorial -Essential hypertension -Hypothyroid -Metabolic acidosis from renal failure-slow to respond -Depression not otherwise specified -IV TPN Plan: Remains on cefepime. - IV fluids. Getting TPN. Options limited. Continue conservative management. Discussed with patient.
[2019-12-04 17:58] LABS: Glucose,Whole Blood 90 mg/dL (75-99)
[2019-12-04] MEDS: MVI, ADULT NO.4 WITH VIT K 10 ML, TRACE (CONC-1ML/DOSE) 1 ML, PARENTERAL ELECTROLYTES 2... IV SCH ×4 (18:26)
[2019-12-04] MEDS: FAT EMULSION 20% 250 ML in EMPTY BAG 1 BAG IV SCH (18:27)
[2019-12-04] MEDS: PROCHLORPERAZINE 10 MG TAB PO PRN (20:50)
[2019-12-04 23:56] LABS: Glucose,Whole Blood 106 mg/dL (75-99)
[2019-12-05] MEDS: CEFEPIME 1 GM in SODIUM CHLORIDE 0.9% 50 ML IVPB SCH ×2 (00:23→12:30)
[2019-12-05] MEDS: INSULIN ASPART (NovoLOG) 100 UNIT/ML VIAL SQ SCH ×4 (02:04→17:50)
[2019-12-05 02:18] LABS: Albumin 3.1 g/dL (3.5-5.0); Calcium 8.5 mg/dL (8.4-10.2); Potassium 3.8 mmol/L (3.5-5.1); Total Bilirubin 3.7 mg/dL (0.2-1.3); Total Protein 6.4 g/dL (6.3-8.2)
[2019-12-05] MEDS: POTASSIUM CHLORIDE 10 MEQ in WATER FOR INJECTION 1 100ML.BAG IVPB SCH ×2 (02:59→04:03)
[2019-12-05] MEDS: LEVOTHYROXINE 100 MCG TAB PO SCH (05:59)
[2019-12-05 06:24] LABS: Glucose,Whole Blood 95 mg/dL (75-99)
[2019-12-05 06:39] LABS: Albumin 3.1 g/dL (3.5-5.0); Calcium 8.4 mg/dL (8.4-10.2); Magnesium 1.9 mg/dL (1.6-2.3); Phosphorus 2.6 mg/dL (2.5-4.5); Potassium 4.3 mmol/L (3.5-5.1); Total Protein 6.6 g/dL (6.3-8.2)
[2019-12-05] MEDS: IPRATROPIUM-ALBUTEROL 3 ML NEB INHALATION SCH ×4 (08:56→20:28)
[2019-12-05] MEDS: VENETOCLAX 100 MG PO SCH (09:24)
[2019-12-05] MEDS: amLODIPine 10 MG TAB PO SCH (09:24)
[2019-12-05] MEDS: FILGRASTIM-SNDZ 300 MCG/0.5 ML SYRINGE SQ SCH (09:24)
[2019-12-05] MEDS: ESCITALOPRAM 10 MG TAB PO SCH (09:24)
[2019-12-05] MEDS: MAGNESIUM OXIDE 400 MG TAB PO SCH ×3 (09:24→21:11)
[2019-12-05] MEDS: allopurinoL 100 MG TAB PO SCH (09:24)
[2019-12-05] MEDS: hydrALAZINE HCL 25 MG TAB PO SCH ×2 (09:24→21:11)
[2019-12-05] MEDS: FOLIC ACID 1 MG TAB PO SCH (09:24)
[2019-12-05] MEDS: SODIUM BICARBONATE TAB 650 MG TAB PO SCH ×3 (09:24→21:11)
[2019-12-05] MEDS: MVI, ADULT NO.4 WITH VIT K 10 ML, TRACE (CONC-1ML/DOSE) 1 ML, PARENTERAL ELECTROLYTES 2... IV SCH ×4 (09:25)
[2019-12-05] MEDS: VORICONAZOLE 200 MG TAB PO SCH ×2 (09:25→21:57)
--- NOTE | 2019-12-05 09:36 | P.PN ---
Subjective Progress Note Date: 12/05/19 Principal diagnosis: Bowel obstruction Patient complaining of fatigue. No nausea or vomiting. Had a bowel movement yesterday. Morning labs are pending. Objective - Vital Signs Vital signs: Vital Signs Temp 97.7 F 12/05/19 09:18 Pulse 73 12/05/19 09:18 Resp 18 12/05/19 09:18 BP 146/61 12/05/19 09:18 Pulse Ox 93 L 12/05/19 09:18 Intake & Output 12/04/19 12/05/19 12/05/19 18:59 06:59 18:59 Intake Total 1031 50 749.167 Output Total 500 Balance 1031 -450 749.167 Weight 47.1 kg Intake: Intake, IV Titration 1031 50 749.167 Amount Cefepime 1 gm In Sodium 50 Chloride 0.9% 50 ml @ 12. 5 mls/hr IVPB Q12H [facility] Rx #:[id number] Mvi, Adult No.4 with Vit 1031 749.167 K 10 ml Trace (Conc-1Ml/ Dose) 1 ml Parenteral Electrolytes 20 ml In Amino Acid 4.25%-D10w 1, 000 ml @ 50 mls/hr IV . [id number] [facility] Rx#:[id number] Output: Urine 500 Other: Voiding Method Bedside Commode Bedside Commode # Voids 1 1 - Exam Abdomen: Soft, distended, nontender - Labs CBC & Chem 7: 12/04/19 06:35 12/05/19 06:08 Labs: Abnormal Lab Results - Last 24 Hours (Table) 12/04/19 12/04/19 12/05/19 Range/Units 12:35 23:54 01:50 Chloride 108 H (98-107) mmol/L BUN 61 H (7-17) mg/dL Creatinine 1.38 H (0.52-1.04) mg/dL Glucose 100 H (74-99) mg/dL POC Glucose (mg/dL) 110 H 106 H (75-99) mg/dL Total Bilirubin 3.7 H (0.2-1.3) mg/dL AST 286 H (14-36) U/L ALT 229 H (4-34) U/L Alkaline Phosphatase 322 H (38-126) U/L Albumin 3.1 L (3.5-5.0) g/dL 12/05/19 Range/Units 06:08 Chloride 108 H (98-107) mmol/L BUN 63 H (7-17) mg/dL Creatinine 1.32 H (0.52-1.04) mg/dL Glucose (74-99) mg/dL POC Glucose (mg/dL) (75-99) mg/dL Total Bilirubin 4.0 H (0.2-1.3) mg/dL AST 290 H (14-36) U/L ALT 239 H (4-34) U/L Alkaline Phosphatase 346 H (38-126) U/L Albumin 3.1 L (3.5-5.0) g/dL Assessment and Plan (1) Small bowel obstruction Narrative/Plan: Await morning labs. Continue nothing by mouth. Increase activity as tolerated. Current Visit: Yes Status: Acute Priority: High Code(s): K56.609 - UNSP INTESTNL OBST, UNSP TO PARTIAL VERSUS COMPLETE OBST SNOMED Code(s): 182456519
[2019-12-05 11:01] LABS: HCT 27.3 % (34.0-46.0); Hypochromasia Slight; MCH 30.4 pg (25.0-35.0); Mean Platelet Volume 8.7; RBC 2.97 m/uL (3.80-5.40); RDW 15.9 % (11.5-15.5); WBC 2.7 k/uL (3.8-10.6)
--- NOTE | 2019-12-05 12:11 | P.PN ---
Subjective Progress Note Date: 12/05/19 The patient remains overall weak, and mostly bedbound. She denies any nausea or vomiting. She did have a bowel movement today. Abdomen remains somewhat distended. Objective - Vital Signs Vital signs: Vital Signs Temp 97.7 F 12/05/19 09:18 Pulse 73 12/05/19 09:18 Resp 18 12/05/19 09:18 BP 146/61 12/05/19 09:18 Pulse Ox 93 L 12/05/19 09:18 Intake & Output 12/04/19 12/05/19 12/05/19 18:59 06:59 18:59 Intake Total 1031 50 949.167 Output Total 500 Balance 1031 -450 949.167 Weight 47.1 kg Intake: Intake, IV Titration 1031 50 749.167 Amount Cefepime 1 gm In Sodium 50 Chloride 0.9% 50 ml @ 12. 5 mls/hr IVPB Q12H [facility] Rx #:[id number] Mvi, Adult No.4 with Vit 1031 749.167 K 10 ml Trace (Conc-1Ml/ Dose) 1 ml Parenteral Electrolytes 20 ml In Amino Acid 4.25%-D10w 1, 000 ml @ 50 mls/hr IV . [id number] [facility] Rx#:[id number] Oral 200 Output: Urine 500 Other: Voiding Method Bedside Commode Bedside Commode Bedside Commode # Voids 1 1 - Constitutional General appearance: Present: no acute distress - EENT Eyes: Present: EOMI ENT: Present: hearing grossly normal, normal oropharynx - Respiratory Respiratory: bilateral: CTA - Cardiovascular Rhythm: regular Heart sounds: normal: S1, S2 - Gastrointestinal General gastrointestinal: Present: absent bowel sounds, distended, soft - Integumentary Integumentary: Present: normal - Neurologic Neurologic: Present: CNII-XII intact - Musculoskeletal Musculoskeletal: Present: generalized weakness, strength equal bilaterally - Psychiatric Psychiatric: Present: A&O x's 3 - Labs CBC & Chem 7: 12/05/19 06:08 12/05/19 06:08 Labs: Abnormal Lab Results - Last 24 Hours (Table) 12/04/19 12/04/19 12/05/19 Range/Units 12:35 23:54 01:50 WBC (3.8-10.6) k/uL RBC (3.80-5.40) m/uL Hgb (11.4-16.0) gm/dL Hct (34.0-46.0) % RDW (11.5-15.5) % Plt Count (150-450) k/uL Chloride 108 H (98-107) mmol/L BUN 61 H (7-17) mg/dL Creatinine 1.38 H (0.52-1.04) mg/dL Glucose 100 H (74-99) mg/dL POC Glucose (mg/dL) 110 H 106 H (75-99) mg/dL Total Bilirubin 3.7 H (0.2-1.3) mg/dL AST 286 H (14-36) U/L ALT 229 H (4-34) U/L Alkaline Phosphatase 322 H (38-126) U/L Albumin 3.1 L (3.5-5.0) g/dL 12/05/19 12/05/19 Range/Units 06:08 06:08 WBC 2.7 L (3.8-10.6) k/uL RBC 2.97 L (3.80-5.40) m/uL Hgb 9.0 L (11.4-16.0) gm/dL Hct 27.3 L (34.0-46.0) % RDW 15.9 H (11.5-15.5) % Plt Count 13 L* D (150-450) k/uL Chloride 108 H (98-107) mmol/L BUN 63 H (7-17) mg/dL Creatinine 1.32 H (0.52-1.04) mg/dL Glucose (74-99) mg/dL POC Glucose (mg/dL) (75-99) mg/dL Total Bilirubin 4.0 H (0.2-1.3) mg/dL AST 290 H (14-36) U/L ALT 239 H (4-34) U/L Alkaline Phosphatase 346 H (38-126) U/L Albumin 3.1 L (3.5-5.0) g/dL Assessment and Plan (1) Pancytopenia Narrative/Plan: The patient is currently on white cell growth factors with slow improvement in her WBC. ANC is greater than 1000. Hemoglobin was in a safe range, at 8-9 g/dL.. Counts did show good recovery after transfusion on 12/03/19 to 42. Check CBC today and continue to monitor. Transfuse to keep hemoglobin greater than 7 and platelets greater than 10. Continue G-CSF until WBC recovers Current Visit: Yes Status: Acute Priority: High Code(s): D61.818 - OTHER PANCYTOPENIA SNOMED Code(s): 347749913 (2) Acute myeloid leukemia Narrative/Plan: In remission. The patient has been resumed on Venetoclax at low dose. However poor tolerance of treatment in general, and poor performance status remains a major concern regarding future prognosis. Current Visit: Yes Status: Acute Priority: High Code(s): C92.00 - ACUTE MYELOBLASTIC LEUKEMIA, NOT HAVING ACHIEVED REMISSION SNOMED Code(s): 05527208 (3) Small bowel obstruction Narrative/Plan: The patient did have a bowel movement today, but on exam I could not appreciate any bowel sounds. Patient is on TPN. Surgery following. Current Visit: Yes Status: Acute Priority: High Code(s): K56.609 - UNSP INTESTNL OBST, UNSP TO PARTIAL VERSUS COMPLETE OBST SNOMED Code(s): 871673244
[2019-12-05 12:17] LABS: Glucose,Whole Blood 108 mg/dL (75-99)
--- NOTE | 2019-12-05 12:41 | PN ---
PROGRESS NOTE This is a 74-year-old lady who was admitted to the hospital with febrile neutropenia and complete heart block. She has severe thrombocytopenia and is not a candidate for any invasive surgical procedures. I am seeing her for the first time today. She went from third-degree heart block to second-degree heart block. Last night she developed a polymorphic VT and came out of it spontaneously. Her potassium and magnesium are within normal limits. This morning, patient is comfortable at rest. Denies any chest pain or difficulty in breathing. PHYSICAL EXAMINATION: Heart rate is 73 beats per minute. Blood pressure is 146/60, respiratory rate 18, O2 saturation 93%. There is no jugular venous distention. Chest exam reveals good air entry bilaterally. Heart exam reveals first and second heart sounds, a grade 3/6 systolic murmur at the apex. Abdomen is soft. Exam of extremities reveals trace edema. Peripheral pulses are felt. LABS: Show a hemoglobin of 9, white cell count is 2.7, platelet count is 13. Potassium is 4.3, BUN is 63, creatinine is 1.3. AST, ALT are elevated. ASSESSMENT: 1. Pancytopenia. 2. High-grade AV block. 3. Polymorphic ventricular tachycardia. PLAN: Will continue with supportive care. Prognosis is guarded. We are not able to do any definitive interventions because of the severe thrombocytopenia that she has. MMODL / IJN: [id number] /
[2019-12-05 13:39] LABS: Band Neutrophils % 1 %; Lymphocytes # (M) 0.59 k/uL (1.0-4.8); Monocytes # (M) 0.51 k/uL (0-1.0); Neutrophils % (M) 58 %; Nucleated Red Blood Cells 0 /100 WBC (0-0); Total Cells Counted 100
[2019-12-05 13:54] LABS: Platelet Count 13 k/uL (150-450)
[2019-12-05] MEDS: MVI, ADULT NO.4 WITH VIT K 10 ML, TRACE (CONC-1ML/DOSE) 1 ML in AMINO ACID 4.25%-D10W+L... IV SCH ×3 (16:27)
[2019-12-05 17:12] LABS: Glucose,Whole Blood 109 mg/dL (75-99)
[2019-12-05] MEDS: FAT EMULSION 20% 250 ML in EMPTY BAG 1 BAG IV SCH (17:21)
[2019-12-05] MEDS: ACETAMINOPHEN TAB 325 MG TAB PO PRN (19:05)
--- NOTE | 2019-12-05 21:39 | PN ---
PROGRESS NOTE DATE OF SERVICE: 12/05/2019 REASON FOR FOLLOWUP: Possible pneumonia. INTERVAL HISTORY: The patient is currently afebrile. The patient is breathing comfortably on room air. Denies having any chest pain or cough. No abdominal pain or diarrhea. PHYSICAL EXAMINATION: Blood pressure is 167/40 with a pulse of 58, temperature 97.9. She is 100% on room air. General description is an elderly female lying in bed in no distress. Respiratory system: Unlabored breathing, decreased breath sounds in the base, no wheeze. Heart S1, S2. Regular rate and rhythm. Abdomen soft, no tenderness. LABS: Hemoglobin 9 with white count 2.7, BUN of 53, creatinine 1.32. Blood culture negative. Urine is negative. DIAGNOSTIC IMPRESSION AND PLAN: Patient admitted to the hospital with fever in this patient noted to have neutropenia and concern for underlying infection that has been ordered now with concern for pneumonia. The patient ( ) and white count is improved, to continue cefepime. Monitor clinical course closely. MMODL / IJN: [id number] /
--- NOTE | 2019-12-05 23:24 | P.PN ---
Progress Note - Text Progress Note Date: 12/05/19 Chief Complaint: Fever History of presenting complaint: This is 74-year-old patient who follows with Dr. Boyd. Oncologist is Dr. Merrill. Chronic stable medical conditions include hypertension, hypothyroid, chronic kidney disease,. Patient has been diagnosed with AML. Has been getting chemotherapy. Patient now presents with decreased appetite nausea and vomiting 1 today. Also had fever. 100.3 documented here. Tired and rundown. Admitted for the same. Started on IV fluids. Denies any sores in the mouth. No diarrhea. No skin changes. Admitted with neutropenic fever. Empirically started on vancomycin and Zosyn. Because of renal function changed to linezolid. Also on cefepime. Patient became short of breath. Given a dose of IV Lasix. Decreased oral intake. Computed tomography scan of the chest nonspecific. Doppler ultrasound of lower extremity negative for DVT.I was informed by Yvrose from oncology that patient repeat bone marrow came back negative for AML. G-CSF was started.had small bowel obstruction-no NG tube because of low platelets.. rather depressed started on Lexapro. went into complete heart block-then 2 second-degree heart block. No further intervention per cardiology.. irradiated PRBC and platelets transfused. Placed on TPN. Today-laying in bed. Tired. No abdominal pain. No nausea vomiting. Getting TPN and lipids. Had a bowel movement today. Review of systems: Was done for constitutional, cardiovascular, GI, pulmonary. relevant finding as above Active Medications Acetaminophen (Tylenol Tab) 650 mg PO Q6HR PRN PRN Reason: Fever and/ or Pain Last Admin: 12/05/19 19:05 Dose: 650 mg Documented by: Albuterol/Ipratropium (Duoneb 0.5 Mg-3 Mg/3 Ml Soln) 3 ml INHALATION RT-QID [facility] Last Admin: 12/05/19 20:28 Dose: Not Given Documented by: Allopurinol (Zyloprim) 100 mg PO DAILY [facility] Last Admin: 12/05/19 09:24 Dose: 100 mg Documented by: Amlodipine Besylate (Norvasc) 10 mg PO DAILY [facility] Last Admin: 12/05/19 09:24 Dose: 10 mg Documented by: Calcitriol (Rocaltrol) 0.25 mcg PO TU [facility] Last Admin: 11/30/19 09:09 Dose: 0.25 mcg Documented by: Escitalopram Oxalate (Lexapro) 10 mg PO DAILY [facility] Last Admin: 12/05/19 09:24 Dose: 10 mg Documented by: Filgrastim-Sndz (Zarxio) 300 mcg SQ DAILY [facility] Last Admin: 12/05/19 09:24 Dose: 300 mcg Documented by: Folic Acid (Folic Acid) 1 mg PO DAILY [facility] Last Admin: 12/05/19 09:24 Dose: 1 mg Documented by: Hydralazine HCl (Apresoline) 25 mg PO BID [facility] Last Admin: 12/05/19 21:11 Dose: 25 mg Documented by: Cefepime HCl 1 gm/ Sodium (Chloride) 50 mls @ 12.5 mls/hr IVPB Q12H [facility] Last Admin: 12/05/19 12:30 Dose: 12.5 mls/hr Documented by: Fat Emulsion Intravenous 250 (ml/ IV Solution) 250 mls @ 21 mls/hr IV DAILY@1800 [facility] Last Admin: 12/05/19 17:21 Dose: 21 mls/hr Documented by: Parenteral Vitamin Supplement 10 ml/ Chromium/Copper/Manganese/Seleni/Zn 1 ml/Amino Ac/Electrol/Dextrose/Calcium 1,011 mls @ 50 mls/hr IV .[id number] [facility] Last Admin: 12/05/19 16:27 Dose: 50 mls/hr Documented by: Insulin Aspart (Novolog) 0 unit SQ Q6H [facility]; Protocol Last Admin: 12/05/19 17:50 Dose: Not Given Documented by: Levothyroxine Sodium (Synthroid) 100 mcg PO DAILY@0630 [facility] Last Admin: 12/05/19 05:59 Dose: 100 mcg Documented by: Magnesium Oxide (Mag-Ox) 200 mg PO TID [facility] Last Admin: 12/05/19 21:11 Dose: 200 mg Documented by: Miscellaneous Information (Potassium Per Protocol) 1 each MISCELLANE DAILY PRN; Protocol PRN Reason: Per Protocol Venetoclax ( Venclexta) 100 Mg Tablet 1 each PO DAILY [facility] Last Admin: 12/05/19 09:24 Dose: 1 each Documented by: Ondansetron HCl (Zofran) 4 mg IVP Q6HR PRN PRN Reason: Nausea And Vomiting Prochlorperazine Maleate (Compazine) 10 mg PO Q6HR PRN PRN Reason: Nausea And Vomiting Last Admin: 12/04/19 20:50 Dose: 10 mg Documented by: Sodium Bicarbonate (Sodium Bicarbonate Tab) 650 mg PO TID [facility] Last Admin: 12/05/19 21:11 Dose: 650 mg Documented by: Voriconazole (Vfend) 200 mg PO BID [facility] Last Admin: 12/05/19 21:57 Dose: 200 mg Documented by: Physical examination: VITAL SIGNS:97.9, 58, 20, 1 6748, 100% on room air GENERAL: Propped up in bed, tired, nasal cannula EYES: Pupils equal. Conjunctiva pale. HEENT: External appearance of nose and ears normal, oral cavity grossly normal. NECK: JVD not raised; masses not palpable. HEART: First and second heart sounds are normal; no edema. LUNGS: Respiratory rate increased, decreased breath sound ABDOMEN: Soft, no tenderness, some distention, bowel sounds present, liver spleen not palpable, no masses palpable. PSYCH: Alert and oriented x3; mood and affect-anxious INVESTIGATIONS, reviewed in clinical context: white count 2.7 hemoglobin 9 platelets 13 potassium 4.3 creatinine 1.3 to Abdominal x-ray film personally reviewed by me shows dilated small bowels Previous testing White count 0.2 hemoglobin 7.5 platelets 20 potassium 4 bun 41 and creatinine 1.70 CRP 174 pro-calcitonin 1.85 Chest x-ray film personally reviewed by me-questionable chronic infiltrate EKG tracing personally reviewed by me-sinus rhythm with left bundle-branch block Ultrasound lower extremity-negative for DVT Computed tomography scan of the chest-without contrast small bilateral pleural effusion with compressive atelectasis bilateral apical thickening. ABG-pCO2 19 pO2 44 on room air Abdominal x-ray showed posterior reviewed by me shows air-fluid levels Computed tomography scan of the abdomen showing small bowel obstruction question abdominal thickening of the GE junction. [id number] heart block Assessment: -Neutropenic fever in a patient getting chemotherapy for AML. No obvious source of infection. Empirically on linezolid and cefepime-. Picklike infection ruled out. Linezolid discontinued. Possible pneumonia -Acute hypoxic respiratory failure. Chest x-ray- question fluid overload. Doppler ultrasound negative for DVT.-Slowly improving - small bowel obstruction-persistent, had a bowel movement today -Pancytopenia secondary to chemotherapy and slow to respond -Severe anemia from pancytopenia-received PRBC -Severe thrombocytopenia platelets given -AML-repeat bone marrow showing negative for the same. -Left bundle-branch block -Complete heart block followed by second-degree heart block-no further intervention per cardiology-slow to respond -Chronic kidney disease stage IV, multifactorial -Essential hypertension -Hypothyroid -Metabolic acidosis from renal failure-slow to respond -Depression not otherwise specified -IV TPN Plan: Remains on cefepime. - IV fluids. Getting TPN.lipids had a bowel movement. we'll try clear liquids. Repeat abdominal x-ray in the morning.discussed with Dr. Raymon Rich from oncology. Did inform him about the bone marrow be negative for AML. Options are limited because of low platelets. Did discuss within Dr. Escobar from oncology. Suggested to give platelets and proceed with pacemaker if needed. I did ask him to discuss with Dr. Raymon Cordero and take a decision from there.total time spent about 40 minutes with over 25 minutes of discussion.
[2019-12-05 23:58] LABS: Glucose,Whole Blood 111 mg/dL (75-99)
[2019-12-06] MEDS: INSULIN ASPART (NovoLOG) 100 UNIT/ML VIAL SQ SCH ×4 (00:04→17:33)
[2019-12-06] MEDS: CEFEPIME 1 GM in SODIUM CHLORIDE 0.9% 50 ML IVPB SCH ×2 (00:27→13:14)
[2019-12-06 06:27] LABS: Glucose,Whole Blood 111 mg/dL (75-99)
[2019-12-06] MEDS: LEVOTHYROXINE 100 MCG TAB PO SCH (06:44)
[2019-12-06 06:55] LABS: HCT 24.5 % (34.0-46.0); HGB 7.8 gm/dL (11.4-16.0); MCH 29.1 pg (25.0-35.0); MCHC 31.8 g/dL (31.0-37.0); MCV 91.3 fL (80.0-100.0); Mean Platelet Volume 8.1; RBC 2.68 m/uL (3.80-5.40); RDW 15.8 % (11.5-15.5); WBC 2.5 k/uL (3.8-10.6)
[2019-12-06 07:17] LABS: Calcium 8.2 mg/dL (8.4-10.2); Phosphorus 3.3 mg/dL (2.5-4.5); Total Protein 6.3 g/dL (6.3-8.2)
--- NOTE | 2019-12-06 07:53 | XR ---
EXAMINATION TYPE: XR abdomen 2V DATE OF EXAM: 12/06/2019 HISTORY: 74-year-old female with ileus. FINDINGS: Possible trace effusions. No evidence for free intraperitoneal air. Dilated loops of small bowel measure up to 4.7 cm currently. There seems to be oral contrast which is made its way to the rectum. IMPRESSION: Diffusely dilated small bowel loops redemonstrated measuring up to 4.7 cm versus 3.9 cm, previously. Unable to exclude slight worsening based on small bowel caliber. Oral contrast has progre ssed and now made its way to the rectum. No free air.
[2019-12-06] MEDS: IPRATROPIUM-ALBUTEROL 3 ML NEB INHALATION SCH ×4 (07:55→20:45)
[2019-12-06 08:11] LABS: Lymphocytes # (M) 0.53 k/uL (1.0-4.8); Monocytes # (M) 0.35 k/uL (0-1.0); Neutrophils # (M) 1.63 k/uL (1.3-7.7); Neutrophils % (M) 65 %; Nucleated Red Blood Cells 0 /100 WBC (0-0); Total Cells Counted 100
[2019-12-06 08:29] LABS: Platelet Count 3 k/uL (150-450)
[2019-12-06] MEDS: amLODIPine 10 MG TAB PO SCH (08:47)
[2019-12-06] MEDS: hydrALAZINE HCL 25 MG TAB PO SCH (08:47)
[2019-12-06] MEDS: MAGNESIUM OXIDE 400 MG TAB PO SCH ×3 (08:47→23:59)
[2019-12-06] MEDS: METOCLOPRAMIDE 5 MG/ML 2 ML VIAL IVP PRN ×2 (10:06→17:20)
--- NOTE | 2019-12-06 11:24 | P.PN ---
Subjective Progress Note Date: 12/06/19 Principal diagnosis: Bowel obstruction Patient has no new complaints. White blood cell count 2.5, platelets 3. Repeat abdominal x-rays show persistent small bowel dilation. Previous oral contrast has reached the rectum. Objective - Vital Signs Vital signs: Vital Signs Temp 97.6 F 12/06/19 08:30 Pulse 56 L 12/06/19 11:21 Resp 16 12/06/19 11:21 BP 182/61 12/06/19 11:21 Pulse Ox 94 L 12/06/19 11:21 Intake & Output 12/05/19 12/06/19 12/06/19 18:59 06:59 18:59 Intake Total 1299.167 Output Total 300 600 Balance 999.167 -600 Weight 34 kg Intake: Intake, IV Titration 1299.167 Amount Cefepime 1 gm In Sodium 50 Chloride 0.9% 50 ml @ 12. 5 mls/hr IVPB Q12H [facility] Rx #:[id number] Mvi, Adult No.4 with Vit 500 K 10 ml Trace (Conc-1Ml/ Dose) 1 ml In Amino Acid 4.25%-D10w+Lytes*E* 1,000 ml @ 50 mls/hr IV . [id number] [facility] Rx#:[id number] Mvi, Adult No.4 with Vit 749.167 K 10 ml Trace (Conc-1Ml/ Dose) 1 ml Parenteral Electrolytes 20 ml In Amino Acid 4.25%-D10w 1, 000 ml @ 50 mls/hr IV . [id number] [facility] Rx#:[id number] Oral 0 Output: Urine 300 600 Other: Voiding Method Bedside Commode Bedside Commode # Voids 1 1 1 # Bowel Movements 1 1 - Exam Abdomen: Soft, mild distention, no tenderness - Labs CBC & Chem 7: 12/06/19 05:58 12/06/19 05:58 Labs: Abnormal Lab Results - Last 24 Hours (Table) 12/05/19 12/05/19 12/05/19 Range/Units 06:08 11:52 16:58 WBC (3.8-10.6) k/uL RBC (3.80-5.40) m/uL Hgb (11.4-16.0) gm/dL Hct (34.0-46.0) % RDW (11.5-15.5) % Plt Count 13 L* D (150-450) k/uL Lymphocytes # (Manual) 0.59 L (1.0-4.8) k/uL Chloride (98-107) mmol/L BUN (7-17) mg/dL Creatinine (0.52-1.04) mg/dL Glucose (74-99) mg/dL POC Glucose (mg/dL) 108 H 109 H (75-99) mg/dL Calcium (8.4-10.2) mg/dL Total Bilirubin (0.2-1.3) mg/dL AST (14-36) U/L ALT (4-34) U/L Alkaline Phosphatase (38-126) U/L Albumin (3.5-5.0) g/dL 12/05/19 12/06/19 12/06/19 Range/Units 23:46 05:58 05:58 WBC 2.5 L (3.8-10.6) k/uL RBC 2.68 L (3.80-5.40) m/uL Hgb 7.8 L (11.4-16.0) gm/dL Hct 24.5 L (34.0-46.0) % RDW 15.8 H (11.5-15.5) % Plt Count 3 L* D (150-450) k/uL Lymphocytes # (Manual) 0.53 L (1.0-4.8) k/uL Chloride 108 H (98-107) mmol/L BUN 63 H (7-17) mg/dL Creatinine 1.36 H (0.52-1.04) mg/dL Glucose 105 H (74-99) mg/dL POC Glucose (mg/dL) 111 H (75-99) mg/dL Calcium 8.2 L (8.4-10.2) mg/dL Total Bilirubin 4.0 H (0.2-1.3) mg/dL AST 253 H (14-36) U/L ALT 232 H (4-34) U/L Alkaline Phosphatase 345 H (38-126) U/L Albumin 3.0 L (3.5-5.0) g/dL 12/06/19 Range/Units 06:22 WBC (3.8-10.6) k/uL RBC (3.80-5.40) m/uL Hgb (11.4-16.0) gm/dL Hct (34.0-46.0) % RDW (11.5-15.5) % Plt Count (150-450) k/uL Lymphocytes # (Manual) (1.0-4.8) k/uL Chloride (98-107) mmol/L BUN (7-17) mg/dL Creatinine (0.52-1.04) mg/dL Glucose (74-99) mg/dL POC Glucose (mg/dL) 111 H (75-99) mg/dL Calcium (8.4-10.2) mg/dL Total Bilirubin (0.2-1.3) mg/dL AST (14-36) U/L ALT (4-34) U/L Alkaline Phosphatase (38-126) U/L Albumin (3.5-5.0) g/dL Assessment and Plan (1) Small bowel obstruction Narrative/Plan: Continue blood product replacement. Continue nothing by mouth for now. Increase activity as able. Current Visit: Yes Status: Acute Priority: High Code(s): K56.609 - UNSP INTESTNL OBST, UNSP TO PARTIAL VERSUS COMPLETE OBST SNOMED Code(s): 662719931
--- NOTE | 2019-12-06 11:53 | P.PN ---
Subjective Progress Note Date: 12/06/19 The patient remains significantly weak overall. No obvious bleeding. She states that she has had some loose bowel movements. She had an episode of vomiting. She denied any abdominal pain. Objective - Vital Signs Vital signs: Vital Signs Temp 97.6 F 12/06/19 08:30 Pulse 56 L 12/06/19 11:21 Resp 16 12/06/19 11:21 BP 182/61 12/06/19 11:21 Pulse Ox 94 L 12/06/19 11:21 Intake & Output 12/05/19 12/06/19 12/06/19 18:59 06:59 18:59 Intake Total 1299.167 Output Total 300 600 Balance 999.167 -600 Weight 34 kg 34 kg Intake: Intake, IV Titration 1299.167 Amount Cefepime 1 gm In Sodium 50 Chloride 0.9% 50 ml @ 12. 5 mls/hr IVPB Q12H [facility] Rx #:[id number] Mvi, Adult No.4 with Vit 500 K 10 ml Trace (Conc-1Ml/ Dose) 1 ml In Amino Acid 4.25%-D10w+Lytes*E* 1,000 ml @ 50 mls/hr IV . [id number] [facility] Rx#:[id number] Mvi, Adult No.4 with Vit 749.167 K 10 ml Trace (Conc-1Ml/ Dose) 1 ml Parenteral Electrolytes 20 ml In Amino Acid 4.25%-D10w 1, 000 ml @ 50 mls/hr IV . [id number] [facility] Rx#:[id number] Oral 0 Output: Urine 300 600 Other: Voiding Method Bedside Commode Bedside Commode # Voids 1 1 1 # Bowel Movements 1 1 - Constitutional General appearance: Present: no acute distress - EENT Eyes: Present: EOMI ENT: Present: hearing grossly normal, normal oropharynx - Respiratory Respiratory: bilateral: CTA - Cardiovascular Rhythm: regular Heart sounds: normal: S1, S2 - Gastrointestinal General gastrointestinal: Present: decreased bowel sounds, soft - Integumentary Integumentary: Present: normal - Neurologic Neurologic: Present: CNII-XII intact - Musculoskeletal Musculoskeletal: Present: generalized weakness, strength equal bilaterally - Labs CBC & Chem 7: 12/06/19 05:58 12/06/19 05:58 Labs: Abnormal Lab Results - Last 24 Hours (Table) 12/05/19 12/05/19 12/05/19 Range/Units 06:08 11:52 16:58 WBC (3.8-10.6) k/uL RBC (3.80-5.40) m/uL Hgb (11.4-16.0) gm/dL Hct (34.0-46.0) % RDW (11.5-15.5) % Plt Count 13 L* D (150-450) k/uL Lymphocytes # (Manual) 0.59 L (1.0-4.8) k/uL Chloride (98-107) mmol/L BUN (7-17) mg/dL Creatinine (0.52-1.04) mg/dL Glucose (74-99) mg/dL POC Glucose (mg/dL) 108 H 109 H (75-99) mg/dL Calcium (8.4-10.2) mg/dL Total Bilirubin (0.2-1.3) mg/dL AST (14-36) U/L ALT (4-34) U/L Alkaline Phosphatase (38-126) U/L Albumin (3.5-5.0) g/dL 12/05/19 12/06/19 12/06/19 Range/Units 23:46 05:58 05:58 WBC 2.5 L (3.8-10.6) k/uL RBC 2.68 L (3.80-5.40) m/uL Hgb 7.8 L (11.4-16.0) gm/dL Hct 24.5 L (34.0-46.0) % RDW 15.8 H (11.5-15.5) % Plt Count 3 L* D (150-450) k/uL Lymphocytes # (Manual) 0.53 L (1.0-4.8) k/uL Chloride 108 H (98-107) mmol/L BUN 63 H (7-17) mg/dL Creatinine 1.36 H (0.52-1.04) mg/dL Glucose 105 H (74-99) mg/dL POC Glucose (mg/dL) 111 H (75-99) mg/dL Calcium 8.2 L (8.4-10.2) mg/dL Total Bilirubin 4.0 H (0.2-1.3) mg/dL AST 253 H (14-36) U/L ALT 232 H (4-34) U/L Alkaline Phosphatase 345 H (38-126) U/L Albumin 3.0 L (3.5-5.0) g/dL 12/06/19 Range/Units 06:22 WBC (3.8-10.6) k/uL RBC (3.80-5.40) m/uL Hgb (11.4-16.0) gm/dL Hct (34.0-46.0) % RDW (11.5-15.5) % Plt Count (150-450) k/uL Lymphocytes # (Manual) (1.0-4.8) k/uL Chloride (98-107) mmol/L BUN (7-17) mg/dL Creatinine (0.52-1.04) mg/dL Glucose (74-99) mg/dL POC Glucose (mg/dL) 111 H (75-99) mg/dL Calcium (8.4-10.2) mg/dL Total Bilirubin (0.2-1.3) mg/dL AST (14-36) U/L ALT (4-34) U/L Alkaline Phosphatase (38-126) U/L Albumin (3.5-5.0) g/dL Assessment and Plan (1) Pancytopenia Narrative/Plan: WBC is 2.5 with ANC 1.6. Hemoglobin was stable at 7.8. Platelets dropped again to 3000 today. Additional platelet transfusion will be ordered. We will also order another batch of crossmatched platelets to be transfused when available - Continue monitoring with transfusion support as needed Current Visit: Yes Status: Acute Priority: High Code(s): D61.818 - OTHER P ANCYTOPENIA SNOMED Code(s): 570078494 (2) Acute myeloid leukemia Narrative/Plan: Continue Venetoclax Current Visit: Yes Status: Acute Priority: High Code(s): C92.00 - ACUTE MYELOBLASTIC LEUKEMIA, NOT HAVING ACHIEVED REMISSION SNOMED Code(s): 39069682 (3) Small bowel obstruction Narrative/Plan: Surgical note reviewed. Passage of contrast through the bowel appears to be quite slow. She did have some nausea and vomiting today no she is having loose bowel movements. Continue TPN. Advance diet as recommended by surgery Current Visit: Yes Status: Acute Priority: High Code(s): K56.609 - UNSP INTESTNL OBST, UNSP TO PARTIAL VERSUS COMPLETE OBST SNOMED Code(s): 657474460 Plan: Case discussed with cardiology. Ideally the patient should have a pacemaker placement but there are concerns because of her pancytopenia and overall prognosis. Her WBC is actually sufficient for pacemaker placement with ANC greater than 1000. She does have significant thrombocytopenia but that issue c an be overcome with platelet transfusions at the time of the procedure. - It is also discussed with the patient is in remission from her acute myeloid leukemia though prognosis going forward is guarded because of her poor performance status and tolerance issues with medications required for mainten ance therapy.
[2019-12-06 12:06] LABS: Glucose,Whole Blood 123 mg/dL (75-99)
[2019-12-06] MEDS: SODIUM BICARBONATE TAB 650 MG TAB PO SCH ×2 (12:16→17:20)
[2019-12-06] MEDS: ESCITALOPRAM 10 MG TAB PO SCH (12:16)
[2019-12-06] MEDS: FOLIC ACID 1 MG TAB PO SCH (12:16)
[2019-12-06] MEDS: FILGRASTIM-SNDZ 300 MCG/0.5 ML SYRINGE SQ SCH (13:14)
[2019-12-06] MEDS: hydrALAZINE HCL 50 MG TAB PO SCH ×3 (13:14→23:59)
[2019-12-06] MEDS: PROCHLORPERAZINE 10 MG TAB PO PRN (13:15)
[2019-12-06] MEDS: VORICONAZOLE 200 MG TAB PO SCH (13:16)
[2019-12-06] MEDS: VENETOCLAX 100 MG PO SCH (13:16)
[2019-12-06] MEDS: MVI, ADULT NO.4 WITH VIT K 10 ML, TRACE (CONC-1ML/DOSE) 1 ML in AMINO ACID 4.25%-D10W+L... IV SCH ×3 (14:17)
--- NOTE | 2019-12-06 14:55 | P.PN ---
Progress Note - Text Progress Note Date: 12/06/19 Chief Complaint: Fever History of presenting complaint: This is 74-year-old patient who follows with Dr. Boyd. Oncologist is Dr. Merrill. Chronic stable medical conditions include hypertension, hypothyroid, chronic kidney disease,. Patient has been diagnosed with AML. Has been getting chemotherapy. Patient now presents with decreased appetite nausea and vomiting 1 today. Also had fever. 100.3 documented here. Tired and rundown. Admitted for the same. Started on IV fluids. Denies any sores in the mouth. No diarrhea. No skin changes. Admitted with neutropenic fever. Empirically started on vancomycin and Zosyn. Because of renal function changed to linezolid. Also on cefepime. Patient became short of breath. Given a dose of IV Lasix. Decreased oral intake. Computed tomography scan of the chest nonspecific. Doppler ultrasound of lower extremity negative for DVT.I was informed by Yvrose from oncology that patient repeat bone marrow came back negative for AML. G-CSF was started.had small bowel obstruction-no NG tube because of low platelets.. rather depressed started on Lexapro. went into complete heart block-then 2 second-degree heart block. No further intervention per cardiology.. irradiated PRBC and platelets transfused. Placed on TPN. Today-patient platelets are dropped again. Remains in second-degree block. Had some nausea. Some clear liquids were attempted. Tired. Review of systems: Was done for constitutional, cardiovascular, GI, pulmonary. relevant finding as above Active Medications Acetaminophen (Tylenol Tab) 650 mg PO Q6HR PRN PRN Reason: Fever and/ or Pain Last Admin: 12/05/19 19:05 Dose: 650 mg Documented by: Albuterol/Ipratropium (Duoneb 0.5 Mg-3 Mg/3 Ml Soln) 3 ml INHALATION RT-QID [facility] Last Admin: 12/06/19 11:09 Dose: 3 ml Documented by: Amlodipine Besylate (Norvasc) 10 mg PO DAILY [facility] Last Admin: 12/06/19 08:47 Dose: 10 mg Documented by: Calcitriol (Rocaltrol) 0.25 mcg PO TU [facility] Last Admin: 11/30/19 09:09 Dose: 0.25 mcg Documented by: Escitalopram Oxalate (Lexapro) 10 mg PO DAILY [facility] Last Admin: 12/06/19 12:16 Dose: Not Given Documented by: Filgrastim-Sndz (Zarxio) 300 mcg SQ DAILY [facility] Last Admin: 12/06/19 13:14 Dose: 300 mcg Documented by: Folic Acid (Folic Acid) 1 mg PO DAILY [facility] Last Admin: 12/06/19 12:16 Dose: Not Given Documented by: Hydralazine HCl (Apresoline) 50 mg PO Q6H [facility] Last Admin: 12/06/19 13:14 Dose: 50 mg Documented by: Cefepime HCl 1 gm/ Sodium (Chloride) 50 mls @ 12.5 mls/hr IVPB Q12H [facility] Last Admin: 12/06/19 13:14 Dose: 12.5 mls/hr Documented by: Fat Emulsion Intravenous 250 (ml/ IV Solution) 250 mls @ 21 mls/hr IV DAILY@1800 [facility] Last Admin: 12/05/19 17:21 Dose: 21 mls/hr Documented by: Parenteral Vitamin Supplement 10 ml/ Chromium/Copper/Manganese/Seleni/Zn 1 ml/Amino Ac/Electrol/Dextrose/Calcium 1,011 mls @ 50 mls/hr IV .[id number] [facility] Last Admin: 12/06/19 14:17 Dose: 50 mls/hr Documented by: Insulin Aspart (Novolog) 0 unit SQ Q6H [facility]; Protocol Last Admin: 12/06/19 12:16 Dose: Not Given Documented by: Levothyroxine Sodium (Synthroid) 100 mcg PO DAILY@0630 [facility] Last Admin: 12/06/19 06:44 Dose: 100 mcg Documented by: Magnesium Oxide (Mag-Ox) 200 mg PO TID [facility] Last Admin: 12/06/19 08:47 Dose: 200 mg Documented by: Metoclopramide HCl (Reglan) 5 mg IVP Q6HR PRN PRN Reason: Nausea Last Admin: 12/06/19 10:06 Dose: 5 mg Documented by: Miscellaneous Information (Potassium Per Protocol) 1 each MISCELLANE DAILY PRN; Protocol PRN Reason: Per Protocol Venetoclax ( Venclexta) 100 Mg Tablet 1 each PO DAILY [facility] Last Admin: 12/06/19 13:16 Dose: 1 each Documented by: Prochlorperazine Maleate (Compazine) 10 mg PO Q6HR PRN PRN Reason: Nausea And Vomiting Last Admin: 12/06/19 13:15 Dose: 10 mg Documented by: Sodium Bicarbonate (Sodium Bicarbonate Tab) 650 mg PO TID [facility] Last Admin: 12/06/19 12:16 Dose: Not Given Documented by: Voriconazole (Vfend) 200 mg PO BID [facility] Last Admin: 12/06/19 13:16 Dose: 200 mg Documented by: Physical examination: VITAL SIGNS: 97.6, 54, 16, 164.51, 96% room air GENERAL: Propped up in bed, tired, nasal cannula EYES: Pupils equal. Conjunctiva pale. HEENT: External appearance of nose and ears normal, oral cavity grossly normal. NECK: JVD not raised; masses not palpable. HEART: First and second heart sounds are normal; no edema. LUNGS: Respiratory rate increased, decreased breath sound ABDOMEN: Soft, no tenderness, some distention, bowel sounds present, liver spleen not palpable, no masses palpable. PSYCH: Alert and oriented x3; mood and affect-anxious INVESTIGATIONS, reviewed in clinical context: White count 2.5 hemoglobin 7.8 platelets 3 potassium 4 bun 63 creatinine 1.36 AST 253 ALT 232 December 05 Abdominal x-ray film personally reviewed by me shows worsening is by mouth Previous testing White count 0.2 hemoglobin 7.5 platelets 20 potassium 4 bun 41 and creatinine 1.70 CRP 174 pro-calcitonin 1.85 Chest x-ray film personally reviewed by me-questionable chronic infiltrate EKG tracing personally reviewed by me-sinus rhythm with left bundle-branch block Ultrasound lower extremity-negative for DVT Computed tomography scan of the chest-without contrast small bilateral pleural effusion with compressive atelectasis bilateral apical thickening. ABG-pCO2 19 pO2 44 on room air Abdominal x-ray showed posterior reviewed by me shows air-fluid levels Computed tomography scan of the abdomen showing small bowel obstruction question abdominal thickening of the GE junction. [id number]-[id number] heart block Abdominal x-ray film personally reviewed by me shows dilated small bowels Assessment: -Neutropenic fever in a patient getting chemotherapy for AML. No obvious source of infection. Empirically on linezolid and cefepime-. Picklike infection ruled out. Linezolid discontinued. Possible pneumonia. Completed a course of cefepime. -Acute hypoxic respiratory failure. Chest x-ray- question fluid overload. Doppler ultrasound negative for DVT.-Slowly improving - small bowel obstruction-persistent, had a bowel movement on December 04. Today's x-ray worsening. Make nothing by mouth again. -Pancytopenia secondary to chemotherapy and slow to respond -Severe anemia from pancytopenia-received PRBC -Severe thrombocytopenia platelets given -AML-repeat bone marrow showing negative for the same. On Venclexta -Left bundle-branch block -Complete heart block followed by second-degree heart block-no further intervention per cardiology-slow to respond -Chronic kidney disease stage IV, multifactorial -Essential hypertension -Hypothyroid -Metabolic acidosis from renal failure-slow to respond -Depression not otherwise specified -IV TPN -Possible drug-induced hepatitis.-Vfend stoped -Full code Plan: Patient to continue with IV cefepime. IV TPN and lipids. LFTs are gone up. Discussed with Dr. Doan. Will DC Vfend. We'll also DC cefepime. More platelets ordered. Advanced care planning: Had a lengthy discussion with the patient regarding her overall care. Patient continues to be in second-degree heart block. Pacemaker cannot be placed because of low platelets. Pacemaker can only be placed up to giving transfusion. Small bowel obstruction persistent. CODE STATUS is discussed at length. Patient will discussed with the daughter. At this point she wishes to remain full code. Though may consider becoming DO NOT RESUSCITATE in the future. 20 minutes was spent on this.
[2019-12-06] MEDS: FAT EMULSION 20% 250 ML in EMPTY BAG 1 BAG IV SCH (17:20)
[2019-12-06 17:34] LABS: Glucose,Whole Blood 116 mg/dL (75-99)
[2019-12-06] MEDS: allopurinoL 100 MG TAB PO SCH (21:10)
[2019-12-06 23:57] LABS: Glucose,Whole Blood 102 mg/dL (75-99)
[2019-12-07] MEDS: INSULIN ASPART (NovoLOG) 100 UNIT/ML VIAL SQ SCH ×4 (00:05→17:35)
--- NOTE | 2019-12-07 01:06 | PN ---
PROGRESS NOTE Roxane is a 74-year-old lady with history of acute myeloid leukemia, pancytopenia, severe thrombocytopenia and leukopenia. Her platelet count today is 3. White cell count is 2.5 who is in second-degree heart block and had a run of polymorphic VT yesterday. This has resolved. She continues to be in second-degree heart block, has not had any syncopal event. I spoke to Dr. Escobar who feels that if patient needs a permanent pacemaker this can be done while giving platelet transfusion. We need to speak to patient's daughter and revisit this issue tomorrow. On exam, heart rate is 56 beats per minute. Blood pressure is 182/60. Respiratory rate is 18. Chest exam reveals good air entry bilaterally. Heart exam reveals first and second heart sounds. Ejection systolic murmur in the aortic area. Systolic murmur at the apex. Abdomen is soft. Examination of the extremities did not reveal any edema. ASSESSMENT: 1. Second-degree heart block. 2. Pancytopenia. 3. Uncontrolled hypertension. PLAN: I will increase the dose of hydralazine to 50 for better blood pressure control. MMODL / IJN: [id number] /
--- NOTE | 2019-12-07 05:36 | PN ---
PROGRESS NOTE DATE OF SERVICE: 12/06/2019 REASON FOR FOLLOWUP: Pneumonia. INTERVAL HISTORY: The patient is currently afebrile. The patient is breathing more comfortably. Denies having any chest pain or shortness of breath. Minimal cough. Some abdominal pain, but no nausea, vomiting, or any diarrhea. PHYSICAL EXAMINATION: Blood pressure is 133/59 with a pulse of 55, temperature 98. She is 95% on room air. General description is an elderly female lying in bed in no distress. RESPIRATORY SYSTEM: Unlabored breathing, decreased breath sounds at the bases. No wheeze. HEART: S1, S2. Regular rate and rhythm. ABDOMEN: Soft, no tenderness. LABS: Hemoglobin 7.8, white count of 2.5, BUN of 63, creatinine 1.36. Liver enzymes are elevated. DIAGNOSTIC IMPRESSION AND PLAN: Patient with febrile neutropenia in this patient initially consulted for PICC line infection that has been ruled out with subsequent concern for pneumonia. Adequately treated as she received more than 10 days of antibiotic therapy, now with worsening of her liver enzymes. Both cefepime and Vfend has been discontinued and we will monitor the patient closely off antibiotic therapy. Plan of care was discussed with the primary admitting team. Continue with supportive care. MMODL / IJN: [id number] /
[2019-12-07 06:29] LABS: Glucose,Whole Blood 125 mg/dL (75-99)
[2019-12-07] MEDS: LEVOTHYROXINE 100 MCG TAB PO SCH (06:44)
[2019-12-07] MEDS: hydrALAZINE HCL 50 MG TAB PO SCH ×4 (06:44→23:27)
[2019-12-07 07:16] LABS: HCT 22.8 % (34.0-46.0); HGB 7.1 gm/dL (11.4-16.0); Hypochromasia Slight; MCH 28.9 pg (25.0-35.0); MCHC 31.2 g/dL (31.0-37.0); MCV 92.7 fL (80.0-100.0); Mean Platelet Volume 7.1; RBC 2.46 m/uL (3.80-5.40); RDW 15.8 % (11.5-15.5); WBC 2.8 k/uL (3.8-10.6)
[2019-12-07 07:22] LABS: Calcium 8.1 mg/dL (8.4-10.2); Magnesium 2.2 mg/dL (1.6-2.3); Potassium 4.1 mmol/L (3.5-5.1); Total Bilirubin 3.1 mg/dL (0.2-1.3); Total Protein 6.2 g/dL (6.3-8.2)
[2019-12-07 07:38] LABS: Platelet Count 2 k/uL (150-450)
[2019-12-07] MEDS: IPRATROPIUM-ALBUTEROL 3 ML NEB INHALATION SCH ×4 (08:18→20:25)
[2019-12-07] MEDS: FILGRASTIM-SNDZ 300 MCG/0.5 ML SYRINGE SQ SCH (10:04)
[2019-12-07] MEDS: ACETAMINOPHEN TAB 325 MG TAB PO PRN (10:04)
[2019-12-07] MEDS: MVI, ADULT NO.4 WITH VIT K 10 ML, TRACE (CONC-1ML/DOSE) 1 ML in AMINO ACID 4.25%-D10W+L... IV SCH ×3 (10:49)
[2019-12-07 10:52] LABS: Band Neutrophils % 2 %; Lymphocytes # (M) 0.31 k/uL (1.0-4.8); Neutrophils % (M) 62 %; Nucleated Red Blood Cells 0 /100 WBC (0-0); Total Cells Counted 100
[2019-12-07 10:53] LABS: Poikilocytosis (M) Present
--- NOTE | 2019-12-07 11:19 | P.PN ---
Subjective 74-year-old patient who follows with Dr. Boyd. Oncologist is Dr. Merrill. Chronic stable medical conditions include hypertension, hypothyroid, chronic kidney disease,. Patient has been diagnosed with AML. Has been getting chemotherapy. Patient now presents with decreased appetite nausea and vomiting 1 today. Also had fever. 100.3 documented here. Tired and rundown. Admitted for the same. Started on IV fluids. Denies any sores in the mouth. No diarrhea. No skin changes. Admitted with neutropenic fever. Empirically started on vancomycin and Zosyn. Because of renal function changed to linezolid. Also on cefepime. Patient became short of breath. Given a dose of IV Lasix. Decreased oral intake. Computed tomography scan of the chest nonspecific. Doppler ultrasound of lower extremity negative for DVT.I was informed by Yvrose from oncology that patient repeat bone marrow came back negative for AML. G-CSF was started.had small bowel obstruction-no NG tube because of low platelets.. rather depressed started on Lexapro. went into complete heart block-then 2 second-degree heart block. No further intervention per cardiology.. irradiated PRBC and platelets transfused. Placed on TPN. Today-patient platelets are dropped again. Remains in second-degree block. Had some nausea. Some clear liquids were attempted. Tired. 11/06/2019 Patient had a bowel movement today does have good bowel sounds were still not read tolerating oral diet. Patient is severely thrombocytopenic awaiting the transfusion of irradiated platelets. Patient is being treated for pneumonia linezolid was discontinued as patient is a pancytopenic. There is no evidence of gram-positive infection at this time. Patient is receiving GM-CSF at this time. Patient was treated for the acute myeloid leukemia with chemotherapy which is in remission at this time. Patient overall clinical condition is guarded and patient prognosis for patient has second-degree type II AV block for which patient will need a pacemaker unfortunately unable to have the procedure done because of the severe thrombocytopenia. Constitutional: Patient does have severe fatigue Cardio vascular: denied any chest pain, palpitations Gastrointestinal denied any nausea vomiting Pulmonary: Denied any shortness of breath cough Neurologic denied any new focal deficits All inpatient medications were reviewed and appropriate changes in these medications as dictated in the interval history and assessment and plan. Objective - Vital Signs Vital signs: Vital Signs Temp 98.2 F 09/08/20 04:00 Pulse 56 L 12/07/19 08:30 Resp 17 12/07/19 04:00 BP 157/63 12/07/19 04:00 Pulse Ox 97 12/07/19 00:00 Intake & Output 12/06/19 12/07/19 12/07/19 18:59 06:59 18:59 Intake Total 1011 1011 Balance 1011 1011 Weight 34 kg 43.5 kg Intake: Intake, IV Titration 1011 1011 Amount Mvi, Adult No.4 with Vit 1011 1011 K 10 ml Trace (Conc-1Ml/ Dose) 1 ml In Amino Acid 4.25%-D10w+Lytes*E* 1,000 ml @ 50 mls/hr IV . [id number] [facility] Rx#:[id number] Oral 0 Other: Voiding Method Bedside Commode Bedside Commode # Voids 1 2 # Bowel Movements 1 - Exam PHYSICAL EXAMINATION: GENERAL: The patient is alert and oriented x3, not in any acute distress. Well developed, well nourished. HEENT: Pupils are round and equally reacting to light. EOMI. No scleral icterus. Does have conjunctival pallor. Normocephalic, atraumatic. No pharyngeal erythema. No thyromegaly. CARDIOVASCULAR: S1 and S2 present. No murmurs, rubs, or gallops. PULMONARY: Chest is clear to auscultation, no wheezing or crackles. ABDOMEN: Soft, nontender, nondistended, normoactive bowel sounds. No palpable organomegaly. MUSCULOSKELETAL: No joint swelling or deformity. EXTREMITIES: No cyanosis, clubbing, or pedal edema. NEUROLOGICAL: Gross neurological examination did not reveal any focal deficits. SKIN: No rashes. - Labs CBC & Chem 7: 12/07/19 06:44 12/07/19 06:44 Labs: Abnormal Lab Results - Last 24 Hours (Table) 12/06/19 12/06/19 12/06/19 Range/Units 12:04 17:32 23:54 WBC (3.8-10.6) k/uL RBC (3.80-5.40) m/uL Hgb (11.4-16.0) gm/dL Hct (34.0-46.0) % RDW (11.5-15.5) % Plt Count (150-450) k/uL Lymphocytes # (Manual) (1.0-4.8) k/uL Chloride (98-107) mmol/L Carbon Dioxide (22-30) mmol/L BUN (7-17) mg/dL Creatinine (0.52-1.04) mg/dL Glucose (74-99) mg/dL POC Glucose (mg/dL) 123 H 116 H 102 H (75-99) mg/dL Calcium (8.4-10.2) mg/dL Total Bilirubin (0.2-1.3) mg/dL AST (14-36) U/L ALT (4-34) U/L Alkaline Phosphatase (38-126) U/L Total Protein (6.3-8.2) g/dL Albumin (3.5-5.0) g/dL 12/07/19 12/07/19 12/07/19 Range/Units 06:27 06:44 06:44 WBC 2.8 L (3.8-10.6) k/uL RBC 2.46 L (3.80-5.40) m/uL Hgb 7.1 L (11.4-16.0) gm/dL Hct 22.8 L (34.0-46.0) % RDW 15.8 H (11.5-15.5) % Plt Count 2 L* (150-450) k/uL Lymphocytes # (Manual) 0.31 L (1.0-4.8) k/uL Chloride 109 H (98-107) mmol/L Carbon Dioxide 21 L (22-30) mmol/L BUN 71 H (7-17) mg/dL Creatinine 1.26 H (0.52-1.04) mg/dL Glucose 107 H (74-99) mg/dL POC Glucose (mg/dL) 125 H (75-99) mg/dL Calcium 8.1 L (8.4-10.2) mg/dL Total Bilirubin 3.1 H (0.2-1.3) mg/dL AST 193 H (14-36) U/L ALT 219 H (4-34) U/L Alkaline Phosphatase 323 H (38-126) U/L Total Protein 6.2 L (6.3-8.2) g/dL Albumin 3.0 L (3.5-5.0) g/dL Assessment and Plan Plan: -Neutropenic fever in a patient getting chemotherapy for AML. No obvious source of infection although newly pneumonia cannot be ruled out. Empirically on l cefepime-. PICC line infection ruled out. Linezolid discontinued. Due to pancytopenia -Acute hypoxic respiratory failure. Chest x-ray- question fluid overload. Doppler ultrasound negative for DVT.-Slowly improving - small bowel obstruction-persistent, had a bowel movement on December 04. Clinically improving -Pancytopenia secondary to chemotherapy and slow to respond -Severe anemia from pancytopenia-received PRBC -Severe thrombocytopenia platelets given -AML-repeat bone marrow showing negative for the same. On Venclexta -Second degree type II AV block, occasional complete heart block: Cardiology is following the patient -Chronic kidney disease stage IV, multifactorial -Essential hypertension -Hypothyroid -Metabolic acidosis from renal failure -Depression not otherwise specified -IV TPN -Possible drug-induced hepatitis.-Vfend stoped -Full code
[2019-12-07 12:17] LABS: Glucose,Whole Blood 108 mg/dL (75-99)
[2019-12-07] MEDS: HYDROmorphone 0.5 MG/0.5 ML SYRINGE IVP PRN (12:30)
--- NOTE | 2019-12-07 12:48 | US ---
EXAMINATION TYPE: US liver DATE OF EXAM: 12/07/2019 COMPARISON: CT 12/01/19; US 09/29/19 CLINICAL HISTORY: worsening LFTs. EXAM MEASUREMENTS: Liver Length: 18.3 cm Gallbladder Wall: 0.3 cm CBD: 0.3 cm Right Kidney: 9.9 x 4.6 x 4.9 cm Pancreas: Mostly obscured; not seen well Liver: Size is upper limits of normal; small amount of perihepatic ascites Gallbladder: Sludge; pericholecystic fluid vs ascites Evidence for sonographic Silva's sign: No CBD: wnl Right Kidney: No hydronephrosis or masses seen heterogeneous liver with trace ascites. No concerning mass and images saved. Gallbladder shows small stones and/or gallbladder sludge. IMPRESSION: No worrisome intrahepatic mass or hepatic ductal dilatation. Persistent mild hepatomegal y. Trace surrounding ascites. Possible diffuse fatty infiltration or underlying hepatocellular diseas e. Consider ultrasound elastography.
--- NOTE | 2019-12-07 14:15 | P.PN ---
Subjective Progress Note Date: 12/07/19 CHIEF COMPLAINT: Fever HISTORY OF PRESENT ILLNESS: We're following patient in regards to her small bowel obstruction. Her abdomen is distended. Computed tomography scan did show evidence of small bowel obstruction. Unfortunately due to her platelets of 8 we are unable to insert NG tube. Patient denies any vomiting. She did have a loose bowel movement. She is afebrile. WBC 2.8 hemoglobin 7.1 and platelets 2 patient is scheduled for platelet transfusion total bili 3.1 AST 193 ALT 219. Patient did have episodes of V. tach weekend and second heart block cardiology is following. PHYSICAL EXAM: VITAL SIGNS: Reviewed. GENERAL: Patient jaundice HEENT: sclera icterus. Extraocular movements grossly intact. Moist buccal mucosa. Head is atraumatic, normocephalic. ABDOMEN: Soft. Distended NEUROLOGIC: Alert and oriented. Cranial nerves II through XII grossly intact. ASSESSMENT: 1. Small bowel obstruction 2. 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 Febrile neutropenia 4. Third-degree heart block followed by cardiology 5. Pancytopenia 6. Elevated LFTs PLAN: -Continue conservative treatment -Continue nothing by mouth -Continue PPN for nutrition support -Continue monitor LFTs Physician Dried Fruit Washer note has been reviewed by physician. Signing provider agrees with the documented findings, assessment, and plan of care. Objective - Vital Signs Vital signs: Vital Signs Temp 97.5 F L 12/07/19 13:00 Pulse 55 L 12/07/19 13:00 Resp 16 12/07/19 13:00 BP 152/63 12/07/19 13:00 Pulse Ox 97 12/07/19 00:00 Intake & Output 12/06/19 12/07/19 12/07/19 18:59 06:59 18:59 Intake Total 1011 1011 Balance 1011 1011 Weight 34 kg 43.5 kg Intake: Intake, IV Titration 1011 1011 Amount Mvi, Adult No.4 with Vit 1011 1011 K 10 ml Trace (Conc-1Ml/ Dose) 1 ml In Amino Acid 4.25%-D10w+Lytes*E* 1,000 ml @ 50 mls/hr IV . [id number] [facility] Rx#:[id number] Oral 0 Blood Product 0 Platelet Irr Pheresis 2 0 Acda Unit [id number] Other: Voiding Method Bedside Commode Bedside Commode # Voids 1 2 # Bowel Movements 1 - Labs CBC & Chem 7: 12/07/19 06:44 12/07/19 06:44 Labs: Abnormal Lab Results - Last 24 Hours (Table) 12/06/19 12/06/19 12/07/19 Range/Units 17:32 23:54 06:27 WBC (3.8-10.6) k/uL RBC (3.80-5.40) m/uL Hgb (11.4-16.0) gm/dL Hct (34.0-46.0) % RDW (11.5-15.5) % Plt Count (150-450) k/uL Lymphocytes # (Manual) (1.0-4.8) k/uL Chloride (98-107) mmol/L Carbon Dioxide (22-30) mmol/L BUN (7-17) mg/dL Creatinine (0.52-1.04) mg/dL Glucose (74-99) mg/dL POC Glucose (mg/dL) 116 H 102 H 125 H (75-99) mg/dL Calcium (8.4-10.2) mg/dL Total Bilirubin (0.2-1.3) mg/dL AST (14-36) U/L ALT (4-34) U/L Alkaline Phosphatase (38-126) U/L Total Protein (6.3-8.2) g/dL Albumin (3.5-5.0) g/dL 12/07/19 12/07/19 12/07/19 Range/Units 06:44 06:44 11:59 WBC 2.8 L (3.8-10.6) k/uL RBC 2.46 L (3.80-5.40) m/uL Hgb 7.1 L (11.4-16.0) gm/dL Hct 22.8 L (34.0-46.0) % RDW 15.8 H (11.5-15.5) % Plt Count 2 L* (150-450) k/uL Lymphocytes # (Manual) 0.31 L (1.0-4.8) k/uL Chloride 109 H (98-107) mmol/L Carbon Dioxide 21 L (22-30) mmol/L BUN 71 H (7-17) mg/dL Creatinine 1.26 H (0.52-1.04) mg/dL Glucose 107 H (74-99) mg/dL POC Glucose (mg/dL) 108 H (75-99) mg/dL Calcium 8.1 L (8.4-10.2) mg/dL Total Bilirubin 3.1 H (0.2-1.3) mg/dL AST 193 H (14-36) U/L ALT 219 H (4-34) U/L Alkaline Phosphatase 323 H (38-126) U/L Total Protein 6.2 L (6.3-8.2) g/dL Albumin 3.0 L (3.5-5.0) g/dL
--- NOTE | 2019-12-07 14:21 | P.PN ---
Subjective Progress Note Date: 12/07/19 CHIEF COMPLAINT: Abnormal EKG/bradycardia HISTORY OF PRESENT ILLNESS: Patient examined this morning at the bedside. Denies chest pain or pressure. Denies shortness of breath. Denies lightheadedness or dizziness. Her heart rate is in the 50s. Remains in second degree block. No further episodes of V-tach. Platelet count today is 2 and she is due to receive transfusion. PHYSICAL EXAM: VITAL SIGNS: Reviewed. GENERAL: Well-developed in no acute distress. HEENT: Head is normocephalic. Pupils are equal, round. Sclerae anicteric. Mucous membranes of the mouth are moist. Neck supple. No JVD or thyromegaly LUNGS: Respirations even and unlabored. Lungs essentially clear to auscultation bilaterally. HEART: Regular rate and rhythm. S1 and S2 heard. Systolic murmur. EXTREMITIES: Normal range of motion. No clubbing or cyanosis. Peripheral pulses intact. No lower extremity edema NEUROLOGIC: Lethargic. ASSESSMENT: 1. Complete heart block, resolved, now maintaining second degree heart block 2. Hypertension 3. Acute myeloid leukemia 4. Pancytopenia 5. Mild aortic stenosis PLAN: Dr. Murphy spoke with the daughter at the bedside. Patient would require PPM for second degree heart block. However, due to patients current condition, pancytopenia, and unknown prognosis regarding AML, patient is not a candidate at this time for PPM insertion. Will continue to see patient daily and make further recommendations. Nurse practitioner note has been reviewed by physician. Signing provider agrees with the documented findings, assessment, and plan of care. Objective - Vital Signs Vital signs: Vital Signs Temp 98.2 F 12/07/19 04:00 Pulse 50 L 12/07/19 11:35 Resp 17 12/07/19 04:00 BP 157/63 12/07/19 04:00 Pulse Ox 97 12/07/19 00:00 Intake & Output 12/06/19 12/07/19 12/07/19 18:59 06:59 18:59 Intake Total 1011 1011 Balance 1011 1011 Weight 34 kg 43.5 kg Intake: Intake, IV Titration 1011 1011 Amount Mvi, Adult No.4 with Vit 1011 1011 K 10 ml Trace (Conc-1Ml/ Dose) 1 ml In Amino Acid 4.25%-D10w+Lytes*E* 1,000 ml @ 50 mls/hr IV . [id number] [facility] Rx#:[id number] Oral 0 Other: Voiding Method Bedside Commode Bedside Commode # Voids 1 2 # Bowel Movements 1 - Labs CBC & Chem 7: 12/07/19 06:44 12/07/19 06:44 Labs: Abnormal Lab Results - Last 24 Hours (Table) 12/06/19 12/06/19 12/07/19 Range/Units 17:32 23:54 06:27 WBC (3.8-10.6) k/uL RBC (3.80-5.40) m/uL Hgb (11.4-16.0) gm/dL Hct (34.0-46.0) % RDW (11.5-15.5) % Plt Count (150-450) k/uL Lymphocytes # (Manual) (1.0-4.8) k/uL Chloride (98-107) mmol/L Carbon Dioxide (22-30) mmol/L BUN (7-17) mg/dL Creatinine (0.52-1.04) mg/dL Glucose (74-99) mg/dL POC Glucose (mg/dL) 116 H 102 H 125 H (75-99) mg/dL Calcium (8.4-10.2) mg/dL Total Bilirubin (0.2-1.3) mg/dL AST (14-36) U/L ALT (4-34) U/L Alkaline Phosphatase (38-126) U/L Total Protein (6.3-8.2) g/dL Albumin (3.5-5.0) g/dL 12/07/19 12/07/19 12/07/19 Range/Units 06:44 06:44 11:59 WBC 2.8 L (3.8-10.6) k/uL RBC 2.46 L (3.80-5.40) m/uL Hgb 7.1 L (11.4-16.0) gm/dL Hct 22.8 L (34.0-46.0) % RDW 15.8 H (11.5-15.5) % Plt Count 2 L* (150-450) k/uL Lymphocytes # (Manual) 0.31 L (1.0-4.8) k/uL Chloride 109 H (98-107) mmol/L Carbon Dioxide 21 L (22-30) mmol/L BUN 71 H (7-17) mg/dL Creatinine 1.26 H (0.52-1.04) mg/dL Glucose 107 H (74-99) mg/dL POC Glucose (mg/dL) 108 H (75-99) mg/dL Calcium 8.1 L (8.4-10.2) mg/dL Total Bilirubin 3.1 H (0.2-1.3) mg/dL AST 193 H (14-36) U/L ALT 219 H (4-34) U/L Alkaline Phosphatase 323 H (38-126) U/L Total Protein 6.2 L (6.3-8.2) g/dL Albumin 3.0 L (3.5-5.0) g/dL
[2019-12-07] MEDS: amLODIPine 10 MG TAB PO SCH (15:42)
[2019-12-07] MEDS: SODIUM BICARBONATE TAB 650 MG TAB PO SCH ×4 (15:43→23:26)
[2019-12-07] MEDS: FOLIC ACID 1 MG TAB PO SCH (15:43)
[2019-12-07] MEDS: ESCITALOPRAM 10 MG TAB PO SCH (15:43)
[2019-12-07] MEDS: VENETOCLAX 100 MG PO SCH (15:43)
[2019-12-07] MEDS: MAGNESIUM OXIDE 400 MG TAB PO SCH ×3 (15:43→23:26)
[2019-12-07 17:09] LABS: Glucose,Whole Blood 90 mg/dL (75-99)
[2019-12-07] MEDS: FAT EMULSION 20% 250 ML in EMPTY BAG 1 BAG IV SCH (17:30)
[2019-12-07 20:25] LABS: Glucose,Whole Blood 90 mg/dL (75-99)
--- NOTE | 2019-12-07 21:27 | P.PN ---
Subjective Progress Note Date: 12/07/19 Principal diagnosis: Pancytopenia, AML Platelet count 2K today, platelet transfusion ordered. LFTs continue to increase, will check coags today. Objective - Vital Signs Vital signs: Vital Signs Temp 98.2 F 12/07/19 04:00 Pulse 56 L 12/07/19 08:30 Resp 17 12/07/19 04:00 BP 157/63 12/07/19 04:00 Pulse Ox 97 12/07/19 00:00 Intake & Output 12/06/19 12/07/19 12/07/19 18:59 06:59 18:59 Intake Total 1011 1011 Balance 1011 1011 Weight 34 kg 43.5 kg Intake: Intake, IV Titration 1011 1011 Amount Mvi, Adult No.4 with Vit 1011 1011 K 10 ml Trace (Conc-1Ml/ Dose) 1 ml In Amino Acid 4.25%-D10w+Lytes*E* 1,000 ml @ 50 mls/hr IV . [id number] [facility] Rx#:[id number] Oral 0 Other: Voiding Method Bedside Commode Bedside Commode # Voids 1 2 # Bowel Movements 1 - Exam - Constitutional General appearance: Present: cooperative, mild distress, thin - EENT Eyes: Present: anicteric sclerae, EOMI ENT: Present: hearing grossly normal - Respiratory Respiratory: bilateral: CTA (weak inspiratory effort) - Cardiovascular Details: bradycardia Heart sounds: normal: S1, S2 - Peripheral edema leg Peripheral Edema: bilateral: None - Gastrointestinal General gastrointestinal: Present: distended, hyperactive bowel sounds, soft - Neurologic Neurologic: Present: CNII-XII intact - Musculoskeletal Musculoskeletal: Present: generalized weakness - Psychiatric Psychiatric: Present: A&O x's 3 - Labs CBC & Chem 7: 12/01/19 06:48 - Labs CBC & Chem 7: 12/07/19 06:44 12/07/19 06:44 Labs: Abnormal Lab Results - Last 24 Hours (Table) 12/06/19 12/06/19 12/06/19 Range/Units 12:04 17:32 23:54 WBC (3.8-10.6) k/uL RBC (3.80-5.40) m/uL Hgb (11.4-16.0) gm/dL Hct (34.0-46.0) % RDW (11.5-15.5) % Plt Count (150-450) k/uL Lymphocytes # (Manual) (1.0-4.8) k/uL Chloride (98-107) mmol/L Carbon Dioxide (22-30) mmol/L BUN (7-17) mg/dL Creatinine (0.52-1.04) mg/dL Glucose (74-99) mg/dL POC Glucose (mg/dL) 123 H 116 H 102 H (75-99) mg/dL Calcium (8.4-10.2) mg/dL Total Bilirubin (0.2-1.3) mg/dL AST (14-36) U/L ALT (4-34) U/L Alkaline Phosphatase (38-126) U/L Total Protein (6.3-8.2) g/dL Albumin (3.5-5.0) g/dL 12/07/19 12/07/19 12/07/19 Range/Units 06:27 06:44 06:44 WBC 2.8 L (3.8-10.6) k/uL RBC 2.46 L (3.80-5.40) m/uL Hgb 7.1 L (11.4-16.0) gm/dL Hct 22.8 L (34.0-46.0) % RDW 15.8 H (11.5-15.5) % Plt Count 2 L* (150-450) k/uL Lymphocytes # (Manual) 0.31 L (1.0-4.8) k/uL Chloride 109 H (98-107) mmol/L Carbon Dioxide 21 L (22-30) mmol/L BUN 71 H (7-17) mg/dL Creatinine 1.26 H (0.52-1.04) mg/dL Glucose 107 H (74-99) mg/dL POC Glucose (mg/dL) 125 H (75-99) mg/dL Calcium 8.1 L (8.4-10.2) mg/dL Total Bilirubin 3.1 H (0.2-1.3) mg/dL AST 193 H (14-36) U/L ALT 219 H (4-34) U/L Alkaline Phosphatase 323 H (38-126) U/L Total Protein 6.2 L (6.3-8.2) g/dL Albumin 3.0 L (3.5-5.0) g/dL Assessment and Plan Plan: Assessment and recommendations: Small bowel obstruction: - Surgery is following - With Thrombocytopenia no intervention able - NPO, Continue on TPN Febrile Neutropenia: Resolved - ID following - Broad abx Acute on Chronic Renal Failure: - Monitor daily 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 - Her oral venetoclax was held for low counts and presentation. - Restarted and is to continue - Recent bone marrow biopsy showing no residual acute leukemia! - GCSF was administered and was started 11/29. She will see Dr. Chavez in 2 weeks. - Dacogen on hold last treatment 11/03 Left upper ex picc associated DVT - No AC therapy with Thrombocytopenia Pancytopenia - Secondary to AML and Chemo - improved - Continue to monitor daily - Supportive transfusions PRN - Patient's recent bone marrow biopsy showed no residual leukemia! Patient started and to continue on G-CSF - transfuse PRBC irradiated today hemoglobin less than 7 - Transfuse platelets less than 10K - Crossmatched platelets ordered for week - Transfuse today platelet of 2K Third degree heart block: - Cardiology following - With persistent thrombocytopenia, pacemaker is unable to be placed at this time. - If pacemaker is felt to be emergent the option of transfusion of platelets during the procedure, Neutrophils are sufficient/safe for procedure Increased LFTs - Recheck coags today with persistently low, not improved thrombocytopenia - Ultrasound Liver - Review of medication
--- NOTE | 2019-12-07 22:53 | PN ---
PROGRESS NOTE DATE OF SERVICE: 12/07/2019 REASON FOR FOLLOWUP: Pneumonia and febrile neutropenia. INTERVAL HISTORY: The patient is currently afebrile. The patient is breathing comfortably. The patient denies having any chest pain or shortness of breath. No cough. Some abdominal discomfort but no nausea or vomiting. Oral intake remains poor. No diarrhea. PHYSICAL EXAMINATION: Blood pressure 116/61 with a pulse of 50, temperature 97.7. She is 96% on room air. General description is an elderly female lying in bed in no distress. RESPIRATORY SYSTEM: Unlabored breathing with decreased breath sounds at the base. No wheeze. HEART: S1, S2. Regular rate and rhythm. ABDOMEN: Soft. No tenderness. LABS: Liver enzymes have improved. Hemoglobin is 7.9, white count of 2.8. DIAGNOSTIC IMPRESSION AND PLAN: Patient admitted to hospital with a fever with concern for possibly line-related. That has been ruled out with the culture negative. Subsequent concern for pneumonia; has been adequately treated and now with evidence of elevated liver enzymes, possibly drug- related, as the ultrasound of the liver did not show any significant abnormality. The patient's liver enzymes are improving discontinuation of cefepime and Levaquin and Vfend. The patient will be monitored closely off antibiotic therapy. Continue with supportive care. MMODL / IJN: [id number] /
[2019-12-08 00:24] LABS: Glucose,Whole Blood 88 mg/dL (75-99)
[2019-12-08] MEDS: INSULIN ASPART (NovoLOG) 100 UNIT/ML VIAL SQ SCH ×4 (01:21→18:15)
[2019-12-08 06:24] LABS: Glucose,Whole Blood 97 mg/dL (75-99)
[2019-12-08] MEDS: LEVOTHYROXINE 100 MCG TAB PO SCH (06:30)
[2019-12-08] MEDS: hydrALAZINE HCL 50 MG TAB PO SCH ×3 (06:30→16:34)
[2019-12-08] MEDS: MVI, ADULT NO.4 WITH VIT K 10 ML, TRACE (CONC-1ML/DOSE) 1 ML in AMINO ACID 4.25%-D10W+L... IV SCH ×6 (06:47→16:33)
[2019-12-08 07:44] LABS: HCT 20.9 % (34.0-46.0); Hypochromasia Slight; MCH 29.1 pg (25.0-35.0); MCHC 31.2 g/dL (31.0-37.0); MCV 93.2 fL (80.0-100.0); Mean Platelet Volume 7.8; RBC 2.24 m/uL (3.80-5.40); RDW 15.9 % (11.5-15.5); WBC 2.5 k/uL (3.8-10.6)
[2019-12-08 07:47] LABS: Platelet Count 3 k/uL (150-450)
[2019-12-08 07:48] LABS: HGB 6.5 gm/dL (11.4-16.0)
[2019-12-08 08:00] LABS: Calcium 8.3 mg/dL (8.4-10.2); Magnesium 2.1 mg/dL (1.6-2.3); Phosphorus 4.1 mg/dL (2.5-4.5); Potassium 4.1 mmol/L (3.5-5.1)
[2019-12-08] MEDS: IPRATROPIUM-ALBUTEROL 3 ML NEB INHALATION SCH ×4 (09:20→20:11)
[2019-12-08] MEDS: amLODIPine 10 MG TAB PO SCH (09:42)
[2019-12-08] MEDS: MAGNESIUM OXIDE 400 MG TAB PO SCH ×3 (09:42→20:42)
[2019-12-08] MEDS: FILGRASTIM-SNDZ 300 MCG/0.5 ML SYRINGE SQ SCH (09:42)
[2019-12-08] MEDS: ESCITALOPRAM 10 MG TAB PO SCH (09:42)
[2019-12-08] MEDS: FOLIC ACID 1 MG TAB PO SCH (09:42)
[2019-12-08] MEDS: SODIUM BICARBONATE TAB 650 MG TAB PO SCH ×3 (09:43→20:42)
[2019-12-08] MEDS: VENETOCLAX 100 MG PO SCH (09:43)
--- NOTE | 2019-12-08 10:57 | P.PN ---
Subjective 74-year-old patient who follows with Dr. Boyd. Oncologist is Dr. Merrill. Chronic stable medical conditions include hypertension, hypothyroid, chronic kidney disease,. Patient has been diagnosed with AML. Has been getting chemotherapy. Patient now presents with decreased appetite nausea and vomiting 1 today. Also had fever. 100.3 documented here. Tired and rundown. Admitted for the same. Started on IV fluids. Denies any sores in the mouth. No diarrhea. No skin changes. Admitted with neutropenic fever. Empirically started on vancomycin and Zosyn. Because of renal function changed to linezolid. Also on cefepime. Patient became short of breath. Given a dose of IV Lasix. Decreased oral intake. Computed tomography scan of the chest nonspecific. Doppler ultrasound of lower extremity negative for DVT.I was informed by Yvrose from oncology that patient repeat bone marrow came back negative for AML. G-CSF was started.had small bowel obstruction-no NG tube because of low platelets.. rather depressed started on Lexapro. went into complete heart block-then 2 second-degree heart block. No further intervention per cardiology.. irradiated PRBC and platelets transfused. Placed on TPN. Today-patient platelets are dropped again. Remains in second-degree block. Had some nausea. Some clear liquids were attempted. Tired. 12/07/2019 Patient had a bowel movement today does have good bowel sounds were still not read tolerating oral diet. Patient is severely thrombocytopenic awaiting the transfusion of irradiated platelets. Patient is being treated for pneumonia linezolid was discontinued as patient is a pancytopenic. There is no evidence of gram-positive infection at this time. Patient is receiving GM-CSF at this time. Patient was treated for the acute myeloid leukemia with chemotherapy which is in remission at this time. Patient overall clinical condition is guarded and patient prognosis for patient has second-degree type II AV block for which patient will need a pacemaker unfortunately unable to have the procedure done because of the severe thrombocytopenia. 12/08/2019 Patient overall condition did not improve patient is not doing well patient remains in second-degree type II AV block patient is unable to tolerate diet patient remains on TPN barely arousable and barely responsive we will discuss the CODE STATUS with the daughter today. Review of systems: Unable to obtain due to her clinical condition All inpatient medications were reviewed and appropriate changes in these medications as dictated in the interval history and assessment and plan. Objective - Vital Signs Vital signs: Vital Signs Temp 97.7 F 12/08/19 04:00 Pulse 55 L 12/08/19 09:39 Resp 19 12/08/19 04:00 BP 183/61 12/08/19 04:00 Pulse Ox 94 L 12/08/19 04:00 Intake & Output 12/07/19 12/08/19 12/08/19 18:59 06:59 18:59 Intake Total 1643 Output Total 0 Balance 1643 0 Weight 40 kg 40 kg Intake: Intake, IV Titration 1011 Amount Mvi, Adult No.4 with Vit 1011 K 10 ml Trace (Conc-1Ml/ Dose) 1 ml In Amino Acid 4.25%-D10w+Lytes*E* 1,000 ml @ 50 mls/hr IV . [id number] [facility] Rx#:[id number] Oral 10 Blood Product 622 Platelet Irr Pheresis 2 312 [address] Unit [id number] Output: Urine 0 Other: Voiding Method Bedside Commode Diaper # Voids 0 # Bowel Movements 2 - Exam PHYSICAL EXAMINATION: GENERAL: is drowsy barely arousable HEENT: Pupils are round and equally reacting to light. EOMI. No scleral icterus. Does have conjunctival pallor. Normocephalic, atraumatic. No pharyngeal erythema. No thyromegaly. CARDIOVASCULAR: S1 and S2 present. No murmurs, rubs, or gallops. PULMONARY: Chest is clear to auscultation, no wheezing or crackles. ABDOMEN: Soft, nontender, nondistended, normoactive bowel sounds. No palpable organomegaly. MUSCULOSKELETAL: No joint swelling or deformity. EXTREMITIES: No cyanosis, clubbing, or pedal edema. NEUROLOGICAL: Gross neurological examination did not reveal any focal deficits. SKIN: No rashes. - Labs CBC & Chem 7: 12/08/19 06:45 12/08/19 06:45 Labs: Abnormal Lab Results - Last 24 Hours (Table) 12/07/19 12/08/19 12/08/19 Range/Units 11:59 06:45 06:45 WBC 2.5 L (3.8-10.6) k/uL RBC 2.24 L (3.80-5.40) m/uL Hgb 6.5 L* (11.4-16.0) gm/dL Hct 20.9 L (34.0-46.0) % RDW 15.9 H (11.5-15.5) % Plt Count 3 L* (150-450) k/uL Chloride 112 H (98-107) mmol/L Carbon Dioxide 20 L (22-30) mmol/L BUN 69 H (7-17) mg/dL Creatinine 1.26 H (0.52-1.04) mg/dL POC Glucose (mg/dL) 108 H (75-99) mg/dL Calcium 8.3 L (8.4-10.2) mg/dL Assessment and Plan Plan: -Neutropenic fever in a patient getting chemotherapy for AML. No obvious source of infection although newly pneumonia cannot be ruled out. Empirically on l cef epime-. PICC line infection ruled out. Linezolid discontinued. Due to pancytopenia -Acute hypoxic respiratory failure. Chest x-ray- question fluid overload. Doppler ultrasound negative for DVT.-Slowly improving - small bowel obstruction-persistent, had a bowel movement on December 04. Clinically improving -Pancytopenia secondary to chemotherapy and slow to respond, patient the will receive PRBC transfusion today radiate. Along with the platelets -Severe anemia from receiving PRBC as needed -Severe thrombocytopenia receiving platelet transfusion as needed -AML-repeat bone marrow showing negative for the same. On Venclexta -Second degree type II AV block, occasional complete heart block: Cardiology is following the patient -Chronic kidney disease stage IV, multifactorial -Essential hypertension -Hypothyroid -Metabolic acidosis from renal failure -Depression not otherwise specified -IV TPN -Possible drug-induced hepatitis.-Vfend stoped -Full code
[2019-12-08 11:19] LABS: Band Neutrophils % 2 %; Myelocytes # (M) 0.03 k/uL (0); Myelocytes % 1 %; Neutrophils % (M) 57 %; Nucleated Red Blood Cells 0 /100 WBC (0-0); Total Cells Counted 100
[2019-12-08 11:22] LABS: Anisocytosis (M) Present; Poikilocytosis (M) Present
--- NOTE | 2019-12-08 11:35 | P.PN ---
Subjective Progress Note Date: 12/08/19 CHIEF COMPLAINT: Fever HISTORY OF PRESENT ILLNESS: We're following patient in regards to her small bowel obstruction. Her abdomen is distended. Computed tomography scan did show evidence of small bowel obstruction. Unfortunately due to her low platelets we are unable to insert NG tube. Patient denies any vomiting. She did have a bowel movement. She is afebrile. WBC 2.5 hemoglobin 6.5 and platelets 3 PHYSICAL EXAM: VITAL SIGNS: Reviewed. GENERAL: Patient jaundice HEENT: sclera icterus. Extraocular movements grossly intact. Moist buccal mucosa. Head is atraumatic, normocephalic. ABDOMEN: Soft. Distended NEUROLOGIC: Alert and oriented. Cranial nerves II through XII grossly intact. ASSESSMENT: 1. Small bowel obstruction 2. 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 Febrile neutropenia 4. Second-degree heart block followed by cardiology. 5. Pancytopenia 6. Elevated LFTs likely medication induced PLAN: -Continue conservative treatment -Continue nothing by mouth -Continue PPN for nutrition support -Continue monitor LFTs Physician Maternity Nurse note has been reviewed by physician. Signing provider agrees with the documented findings, assessment, and plan of care. Objective - Vital Signs Vital signs: Vital Signs Temp 97.7 F 12/08/19 04:00 Pulse 55 L 12/08/19 09:39 Resp 19 12/08/19 04:00 BP 183/61 12/08/19 04:00 Pulse Ox 94 L 12/08/19 04:00 Intake & Output 12/07/19 12/08/19 12/08/19 18:59 06:59 18:59 Intake Total 1643 Output Total 0 Balance 1643 0 Weight 40 kg 40 kg Intake: Intake, IV Titration 1011 Amount Mvi, Adult No.4 with Vit 1011 K 10 ml Trace (Conc-1Ml/ Dose) 1 ml In Amino Acid 4.25%-D10w+Lytes*E* 1,000 ml @ 50 mls/hr IV . [id number] [facility] Rx#:[id number] Oral 10 Blood Product 622 Platelet Irr Pheresis 2 312 Acda Unit [id number] Output: Urine 0 Other: Voiding Method Bedside Commode Diaper # Voids 0 4 # Bowel Movements 2 2 - Labs CBC & Chem 7: 12/08/19 06:45 12/08/19 06:45 Labs: Abnormal Lab Results - Last 24 Hours (Table) 12/07/19 12/08/19 12/08/19 Range/Units 11:59 06:45 06:45 WBC 2.5 L (3.8-10.6) k/uL RBC 2.24 L (3.80-5.40) m/uL Hgb 6.5 L* (11.4-16.0) gm/dL Hct 20.9 L (34.0-46.0) % RDW 15.9 H (11.5-15.5) % Plt Count 3 L* (150-450) k/uL Lymphocytes # (Manual) 0.30 L (1.0-4.8) k/uL Myelocytes # (Manual) 0.03 H (0) k/uL Chloride 112 H (98-107) mmol/L Carbon Dioxide 20 L (22-30) mmol/L BUN 69 H (7-17) mg/dL Creatinine 1.26 H (0.52-1.04) mg/dL POC Glucose (mg/dL) 108 H (75-99) mg/dL Calcium 8.3 L (8.4-10.2) mg/dL
[2019-12-08 11:46] LABS: Glucose,Whole Blood 137 mg/dL (75-99)
[2019-12-08] MEDS: hydrALAZINE HCL 20 MG/ML 1 ML VIAL IVP PRN ×2 (12:43→23:21)
--- NOTE | 2019-12-08 13:00 | ECHOF ---
Referral Reason:lv function MEASUREMENTS -------- HEIGHT: 142.2 cm WEIGHT: 39.9 kg BP: 183/61 IVSd: 1.0 cm (0.6 - 1.1) LVIDd: 3.8 cm (3.9 - 5.3) LVPWd: 0.9 cm (0.6 - 1.1) IVSs: 1.4 cm LVIDs: 2.0 cm LVPWs: 1.6 cm LAESV Index (A-L): 49.44 ml/m Ao Diam: 2.8 cm (2.0 - 3.7) AV Cusp: 1.5 cm (1.5 - 2.6) LA Diam: 3.1 cm (2.7 - 3.8) MV EXCURSION: 15.965 mm (> 18.000) MV EF SLOPE: 75 mm/s (70 - 150) EPSS: 0.6 cm MV E Eliot: 1.38 m/s MV DecT: 148 ms MV A Eliot: 1.78 m/s MV E/A Ratio: 0.77 AV maxP.82 mmHg AV meanP.19 mmHg RAP: 5.00 mmHg RVSP: 43.86 mmHg FINDINGS -------- This was a technically difficult study with suboptimal views. The left ventricular size is normal. Left ventricular wall thickness is normal. Overall left vent ricular systolic function is normal with, an EF between 55 - 60 %. Increased LAP Grade 2 Diastolic Dysfunction. The right ventricle is normal in size. LA is severely dilated >40 ml/m2 The right atrial size is normal. Aortic valve is trileaflet and is mildly thickened. There is mild aortic valve sclerosis. Peak/me an gradient across the Aortic Valve is 13.82mmHg / 7.19mmHg. The mitral valve is normal. The mitral valve leaflets are mildly thickened. Mild mitral annular c alcification present. Moderate mitral regurgitation is present. The tricuspid valve appears structurally normal. Mild tricuspid regurgitation present. There is m ild pulmonary hypertension. The right ventricular systolic pressure, as measured by Doppler, is 43. 86mmHg. There is no pulmonic regurgitation present. The aortic root size is normal. Normal inferior vena cava with normal inspiratory collapse consistent with estimated right atrial pre ssure of 5 mmHg. There is a trivial pericardial effusion present. CONCLUSIONS -------- 1. The left ventricular size is normal. 2. Left ventricular wall thickness is normal. 3. Overall left ventricular systolic function is normal with, an EF between 55 - 60 %. 4. Increased LAP Grade 2 Diastolic Dysfunction. 5. LA is severely dilated >40 ml/m2 6. Aortic valve is trileaflet and is mildly thickened. 7. There is mild aortic valve sclerosis. 8. Peak/mean gradient across the Aortic Valve is 13.82mmHg / 7.19mmHg. 9. The mitral valve leaflets are mildly thickened. 10. Mild mitral annular calcification present. 11. Moderate mitral regurgitation is present. 12. Mild tricuspid regurgitation present. 13. There is mild pulmonary hypertension. 14. The right ventricular systolic pressure, as measured by Doppler, is 43.86mmHg. 15. There is a trivial pericardial effusion present. LAUNDRY PRESS OPERATOR: Meliza Mir RDCS
[2019-12-08 13:11] LABS: Partial Thromboplastin Time 27.8 sec (22.0-30.0); Prothrombin Time 10.6 sec (9.0-12.0)
--- NOTE | 2019-12-08 13:51 | P.PN ---
Subjective Progress Note Date: 12/08/19 CHIEF COMPLAINT: Abnormal EKG/bradycardia HISTORY OF PRESENT ILLNESS: Patient examined this morning at the bedside. Denies chest pain or pressure. Denies shortness of breath. Denies lightheadedness or dizziness. Her heart rate is in the 50s. Remains in second degree block. No further episodes of V-tach. Platelet count today is 3 and she is due to receive transfusion. Hemoglobin 6.5. Patient is also scheduled to receive RBC transfusion. Patients blood pressure remains elevated. Per nursing, patient is refusing to take any oral medications. PHYSICAL EXAM: VITAL SIGNS: Reviewed. GENERAL: Well-developed in no acute distress. HEENT: Head is normocephalic. Pupils are equal, round. Sclerae anicteric. Mucous membranes of the mouth are moist. Neck supple. No JVD or thyromegaly LUNGS: Respirations even and unlabored. Lungs essentially clear to auscultation bilaterally. HEART: Regular rate and rhythm. S1 and S2 heard. Systolic murmur. EXTREMITIES: Normal range of motion. No clubbing or cyanosis. Peripheral pulses intact. No lower extremity edema NEUROLOGIC: Lethargic. ASSESSMENT: 1. Complete heart block, resolved, now maintaining second degree heart block 2. Hypertension 3. Acute myeloid leukemia 4. Pancytopenia 5. Mild aortic stenosis PLAN: Patient would require PPM for second degree heart block. However, due to patients current condition, pancytopenia, and unknown prognosis regarding AML, patient is not a candidate at this time for PPM insertion Hydralazine 10mg IV q8 hours PRN for hypertension as patient is refusing oral medications Recommend internal medicine and oncology discussing code status and prognosis with the patient and her daughter Nurse practitioner note has been reviewed by physician. Signing provider agrees with the documented findings, assessment, and plan of care. Objective - Vital Signs Vital signs: Vital Signs Temp 97.5 F L 12/08/19 13:08 Pulse 49 L 12/08/19 13:08 Resp 12 12/08/19 13:08 BP 167/47 12/08/19 13:08 Pulse Ox 96 12/08/19 13:08 Intake & Output 12/07/19 12/08/19 12/08/19 18:59 06:59 18:59 Intake Total 1643 0 Output Total 0 Balance 1643 0 0 Weight 40 kg 40 kg Intake: Intake, IV Titration 1011 Amount Mvi, Adult No.4 with Vit 1011 K 10 ml Trace (Conc-1Ml/ Dose) 1 ml In Amino Acid 4.25%-D10w+Lytes*E* 1,000 ml @ 50 mls/hr IV . [id number] [facility] Rx#:[id number] Oral 10 0 Blood Product 622 0 Platelet Irr Pheresis 2 [address] [id number] Platelet Irr Pheresis Pas 0 -C Unit [id number] Output: Urine 0 Other: Voiding Method Bedside Commode Diaper Diaper # Voids 0 4 # Bowel Movements 2 2 - Labs CBC & Chem 7: 12/08/19 06:45 12/08/19 06:45 Labs: Abnormal Lab Results - Last 24 Hours (Table) 12/08/19 12/08/19 12/08/19 Range/Units 06:45 06:45 11:00 WBC 2.5 L (3.8-10.6) k/uL RBC 2.24 L (3.80-5.40) m/uL Hgb 6.5 L* (11.4-16.0) gm/dL Hct 20.9 L (34.0-46.0) % RDW 15.9 H (11.5-15.5) % Plt Count 3 L* (150-450) k/uL Lymphocytes # (Manual) 0.30 L (1.0-4.8) k/uL Myelocytes # (Manual) 0.03 H (0) k/uL Chloride 112 H (98-107) mmol/L Carbon Dioxide 20 L (22-30) mmol/L BUN 69 H (7-17) mg/dL Creatinine 1.26 H (0.52-1.04) mg/dL POC Glucose (mg/dL) (75-99) mg/dL Calcium 8.3 L (8.4-10.2) mg/dL Crossmatch See Detail 12/08/19 Range/Units 11:44 WBC (3.8-10.6) k/uL RBC (3.80-5.40) m/uL Hgb (11.4-16.0) gm/dL Hct (34.0-46.0) % RDW (11.5-15.5) % Plt Count (150-450) k/uL Lymphocytes # (Manual) (1.0-4.8) k/uL Myelocytes # (Manual) (0) k/uL Chloride (98-107) mmol/L Carbon Dioxide (22-30) mmol/L BUN (7-17) mg/dL Creatinine (0.52-1.04) mg/dL POC Glucose (mg/dL) 137 H (75-99) mg/dL Calcium (8.4-10.2) mg/dL Crossmatch
--- NOTE | 2019-12-08 15:38 | PN ---
PROGRESS NOTE DATE OF SERVICE: 12/08/2019 REASON FOR FOLLOWUP: Pneumonia. INTERVAL HISTORY: The patient is currently afebrile. The patient is breathing comfortably on room air. The patient denies having any chest pain or shortness of breath or cough. Some abdominal pain . No nausea, vomiting or diarrhea. PHYSICAL EXAMINATION: Blood pressure 167/47 with a pulse of 50, temperature 97.4. She is 96% on room air. General description is an elderly female lying in bed in no distress. RESPIRATORY SYSTEM: Unlabored breathing with decreased breath sounds at the base. No wheeze. HEART: S1, S2. Regular rate and rhythm. ABDOMEN: Soft. No tenderness. LABS: Hemoglobin 6.5, white count 2.5. DIAGNOSTIC IMPRESSION AND PLAN: Patient admitted to hospital with febrile neutropenia in this patient who did have an age concern for line sepsis. That has been ruled out. Subsequently with ; has been adequately treated. Antibiotic will be discontinued because of elevated liver enzymes. not repeated today. Clinical course will be monitored closely off antibiotic therapy. Continue with supportive care. MMODL / IJN: [id number] /
[2019-12-08] MEDS: FAT EMULSION 20% 250 ML in EMPTY BAG 1 BAG IV SCH (16:33)
--- NOTE | 2019-12-08 17:28 | CT ---
EXAMINATION TYPE: CT brain wo con DATE OF EXAM: 12/08/2019 HISTORY: ams and weakness. CT DLP: 1090.4 mGycm. Automated Exposure Control for Dose Reduction was Utilized. TECHNIQUE: CT scan of the head is performed without contrast. COMPARISON: None. FINDINGS: There is no acute intracranial hemorrhage or midline shift identified. There is diffuse v entricular and sulcal prominence consistent with diffuse age-related cerebral atrophy. There is low- attenuation in the periventricular white matter consistent with chronic small vessel ischemic change. There is 8 mm mucous retention cyst or polyp in the right frontal sinus otherwise the visualized sin uses are clear. The globes are intact bilaterally. IMPRESSION: No acute intracranial hemorrhage or midline shift. There is mild diffuse cerebral atrop hy and moderate chronic small vessel ischemic change noted.
[2019-12-08 18:09] LABS: Glucose,Whole Blood 134 mg/dL (75-99)
[2019-12-08 20:37] LABS: HCT 23.5 % (34.0-46.0); HGB 7.5 gm/dL (11.4-16.0); Hypochromasia Slight; MCH 29.4 pg (25.0-35.0); MCHC 31.9 g/dL (31.0-37.0); MCV 92.2 fL (80.0-100.0); Mean Platelet Volume 7.9; Platelet Count 33 k/uL (150-450); RBC 2.55 m/uL (3.80-5.40); RDW 15.9 % (11.5-15.5); WBC 2.6 k/uL (3.8-10.6)
--- NOTE | 2019-12-08 21:32 | P.PN ---
Subjective Progress Note Date: 12/08/19 Principal diagnosis: Pancytopenia, AML lethargic and confused today, awakens to stimuli but change from yesterday. Objective - Vital Signs Vital signs: Vital Signs Temp 97.4 F L 12/08/19 14:37 Pulse 50 L 12/08/19 14:37 Resp 12 12/08/19 14:37 BP 167/47 12/08/19 14:37 Pulse Ox 96 12/08/19 13:08 Intake & Output 12/07/19 12/08/19 12/08/19 18:59 06:59 18:59 Intake Total 1643 223 Output Total 0 Balance 1643 0 223 Weight 40 kg 40 kg Intake: Intake, IV Titration 1011 Amount Mvi, Adult No.4 with Vit 1011 K 10 ml Trace (Conc-1Ml/ Dose) 1 ml In Amino Acid 4.25%-D10w+Lytes*E* 1,000 ml @ 50 mls/hr IV . [id number] [facility] Rx#:[id number] Oral 10 0 Blood Product 622 223 Platelet Irr Pheresis 2 [address] [id number] Platelet Irr Pheresis Pas 223 -C Unit [id number] Rc Irr As1 Unit 0 [id number] Output: Urine 0 Other: Voiding Method Bedside Commode Diaper Diaper # Voids 0 4 # Bowel Movements 2 2 - Exam - Constitutional General appearance: Present:Lethargic, weak, easily re-oriented confusion - EENT Eyes: Present: anicteric sclerae, EOMI ENT: Present: hearing grossly normal - Respiratory Respiratory: bilateral: CTA (weak inspiratory effort) - Cardiovascular Details: bradycardia Heart sounds: normal: S1, S2 - Peripheral edema leg Peripheral Edema: bilateral: None - Gastrointestinal General gastrointestinal: Present: distended, hyperactive bowel sounds, soft - Neurologic Neurologic: Present: JERRI - Musculoskeletal Musculoskeletal: Present: generalized weakness - Psychiatric Psychiatric: Present: after continued stimuli awakens enough - Labs CBC & Chem 7: 12/08/19 06:45 12/08/19 06:45 Labs: Abnormal Lab Results - Last 24 Hours (Table) 12/08/19 12/08/19 12/08/19 Range/Units 06:45 06:45 11:00 WBC 2.5 L (3.8-10.6) k/uL RBC 2.24 L (3.80-5.40) m/uL Hgb 6.5 L* (11.4-16.0) gm/dL Hct 20.9 L (34.0-46.0) % RDW 15.9 H (11.5-15.5) % Plt Count 3 L* (150-450) k/uL Lymphocytes # (Manual) 0.30 L (1.0-4.8) k/uL Myelocytes # (Manual) 0.03 H (0) k/uL Chloride 112 H (98-107) mmol/L Carbon Dioxide 20 L (22-30) mmol/L BUN 69 H (7-17) mg/dL Creatinine 1.26 H (0.52-1.04) mg/dL POC Glucose (mg/dL) (75-99) mg/dL Calcium 8.3 L (8.4-10.2) mg/dL Crossmatch See Detail 12/08/19 Range/Units 11:44 WBC (3.8-10.6) k/uL RBC (3.80-5.40) m/uL Hgb (11.4-16.0) gm/dL Hct (34.0-46.0) % RDW (11.5-15.5) % Plt Count (150-450) k/uL Lymphocytes # (Manual) (1.0-4.8) k/uL Myelocytes # (Manual) (0) k/uL Chloride (98-107) mmol/L Carbon Dioxide (22-30) mmol/L BUN (7-17) mg/dL Creatinine (0.52-1.04) mg/dL POC Glucose (mg/dL) 137 H (75-99) mg/dL Calcium (8.4-10.2) mg/dL Crossmatch Assessment and Plan Plan: Assessment and recommendations: Mental Status Changes: - CT head rule out bleed with persistent low platelets - Metabolic encephalopathy and increased LFTs Small bowel obstruction: - Surgery is following - With Thrombocytopenia no intervention able - NPO, Continue on TPN Febrile Neutropenia: Resolved - ID following - Broad abx Acute on Chronic Renal Failure: - Monitor daily 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 - Her oral venetoclax was held for low counts and presentation. - Restarted and is to continue - Recent bone marrow biopsy showing no residual acute leukemia! - GCSF was administered and was started 11/29. She will see Dr. Chavez in 2 weeks. - Dacogen on hold last treatment 11/03 Left upper ex picc associated DVT - No AC therapy with Thrombocytopenia Pancytopenia - Secondary to AML and Chemo - improved - Continue to monitor daily - Supportive transfusions PRN - Patient's recent bone marrow biopsy showed no residual leukemia! Patient started and to continue on G-CSF - transfuse PRBC irradiated today hemoglobin less than 7 - Transfuse platelets less than 10K - Crossmatched platelets ordered for week - Transfuse today platelet of 2K Third degree heart block: - Cardiology following - With persistent thrombocytopenia, pacemaker is unable to be placed at this time. - If pacemaker is felt to be emergent the option of transfusion of platelets during the procedure, Neutrophils are sufficient/safe for procedure Increased LFTs - Recheck coags today with persistently low, not improved thrombocytopenia - Ultrasound Liver reviewed no acute finding - Review of medication Plan: 12/08/19 - CT head - Alba Culture - Transfusion plt and PRBC - Attempting to expedite crossmatched platelets - Check ammonia Physician Attest: I have completed the full history and physical and agree with dictation, dictated as a scribe
[2019-12-08 22:14] LABS: Anisocytosis (M) Present; Band Neutrophils % 8 %; Hypochromasia (M) Present; Lymphocytes # (M) 0.36 k/uL (1.0-4.8); Monocytes # (M) 0.36 k/uL (0-1.0); Neutrophils % (M) 64 %; Nucleated Red Blood Cells 0 /100 WBC (0-0); Total Cells Counted 100
[2019-12-08 23:59] LABS: Glucose,Whole Blood 125 mg/dL (75-99)
[2019-12-09] MEDS: hydrALAZINE HCL 50 MG TAB PO SCH ×4 (00:04→18:38)
[2019-12-09] MEDS: INSULIN ASPART (NovoLOG) 100 UNIT/ML VIAL SQ SCH ×4 (00:05→18:38)
[2019-12-09 06:12] LABS: Glucose,Whole Blood 120 mg/dL (75-99)
[2019-12-09] MEDS: LEVOTHYROXINE 100 MCG TAB PO SCH (06:15)
[2019-12-09 06:46] LABS: Anisocytosis Slight; HCT 22.3 % (34.0-46.0); HGB 7.2 gm/dL (11.4-16.0); MCH 29.3 pg (25.0-35.0); MCHC 32.2 g/dL (31.0-37.0); MCV 90.9 fL (80.0-100.0); Mean Platelet Volume 8.1; RBC 2.46 m/uL (3.80-5.40); RDW 16.1 % (11.5-15.5); WBC 2.5 k/uL (3.8-10.6)
[2019-12-09 07:09] LABS: Platelet Count 20 k/uL (150-450)
[2019-12-09 07:41] LABS: Magnesium 2.1 mg/dL (1.6-2.3); Phosphorus 3.9 mg/dL (2.5-4.5); Potassium 3.7 mmol/L (3.5-5.1); Total Bilirubin 2.2 mg/dL (0.2-1.3); Total Protein 6.3 g/dL (6.3-8.2)
[2019-12-09 08:38] LABS: Band Neutrophils % 1 %; Monocytes # (M) 0.55 k/uL (0-1.0); Neutrophils % (M) 57 %; Nucleated Red Blood Cells 0 /100 WBC (0-0); Poikilocytosis (M) Present; Total Cells Counted 100
[2019-12-09] MEDS: IPRATROPIUM-ALBUTEROL 3 ML NEB INHALATION SCH ×4 (09:00→20:13)
--- NOTE | 2019-12-09 10:52 | P.PN ---
Subjective 74-year-old patient who follows with Dr. Boyd. Oncologist is Dr. Merrill. Chronic stable medical conditions include hypertension, hypothyroid, chronic kidney disease,. Patient has been diagnosed with AML. Has been getting chemotherapy. Patient now presents with decreased appetite nausea and vomiting 1 today. Also had fever. 100.3 documented here. Tired and rundown. Admitted for the same. Started on IV fluids. Denies any sores in the mouth. No diarrhea. No skin changes. Admitted with neutropenic fever. Empirically started on vancomycin and Zosyn. Because of renal function changed to linezolid. Also on cefepime. Patient became short of breath. Given a dose of IV Lasix. Decreased oral intake. Computed tomography scan of the chest nonspecific. Doppler ultrasound of lower extremity negative for DVT.I was informed by Yvrose from oncology that patient repeat bone marrow came back negative for AML. G-CSF was started.had small bowel obstruction-no NG tube because of low platelets.. rather depressed started on Lexapro. went into complete heart block-then 2 second-degree heart block. No further intervention per cardiology.. irradiated PRBC and platelets transfused. Placed on TPN. Today-patient platelets are dropped again. Remains in second-degree block. Had some nausea. Some clear liquids were attempted. Tired. 12/07/2019 Patient had a bowel movement today does have good bowel sounds were still not read tolerating oral diet. Patient is severely thrombocytopenic awaiting the transfusion of irradiated platelets. Patient is being treated for pneumonia linezolid was discontinued as patient is a pancytopenic. There is no evidence of gram-positive infection at this time. Patient is receiving GM-CSF at this time. Patient was treated for the acute myeloid leukemia with chemotherapy which is in remission at this time. Patient overall clinical condition is guarded and patient prognosis for patient has second-degree type II AV block for which patient will need a pacemaker unfortunately unable to have the procedure done because of the severe thrombocytopenia. 12/08/2019 Patient overall condition did not improve patient is not doing well patient remains in second-degree type II AV block patient is unable to tolerate diet patient remains on TPN barely arousable and barely responsive we will discuss the CODE STATUS with the daughter today. 12/09/2019 I did discuss with the daughter regarding the CODE STATUS in the patient will be seen by the daughter and she'll make the decision. Patient is bit elevated today although still nonverbal. Bone marrow Appears to be responding patient's platelet count is better not sure if this is from transfusion and hemoglobin is better because of transfusion Review of systems: Unable to obtain due to her clinical condition All inpatient medications were reviewed and appropriate changes in these medications as dictated in the interval history and assessment and plan. Objective - Vital Signs Vital signs: Vital Signs Temp 97.9 F 12/09/19 03:20 Pulse 56 L 12/09/19 09:14 Resp 18 12/09/19 03:20 BP 170/64 12/09/19 03:20 Pulse Ox 93 L 12/09/19 03:20 Intake & Output 12/08/19 12/09/19 12/09/19 18:59 06:59 18:59 Intake Total 2228 Output Total 200 Balance 2228 -200 Weight 40 kg Intake: Intake, IV Titration 1161 Amount Fat Emulsion 20% 250 ml 150 In Empty Bag 1 bag @ 21 mls/hr IV DAILY@1800 [facility] Rx#:[id number] Mvi, Adult No.4 with Vit 1011 K 10 ml Trace (Conc-1Ml/ Dose) 1 ml In Amino Acid 4.25%-D10w+Lytes*E* 1,000 ml @ 50 mls/hr IV . [id number] [facility] Rx#:[id number] Oral 0 Blood Product 1067 Platelet Irr Pheresis Pas 223 -C Unit [id number] Rc Irr As1 Unit 310 [id number] Output: Urine 200 Other: Voiding Method Diaper Diaper # Voids 4 1 # Bowel Movements 2 - Exam PHYSICAL EXAMINATION: GENERAL: Patient is awake nonverbal still lethargic HEENT: Pupils are round and equally reacting to light. EOMI. No scleral icterus. Does have conjunctival pallor. Normocephalic, atraumatic. No pharyngeal erythema. No thyromegaly. CARDIOVASCULAR: S1 and S2 present. No murmurs, rubs, or gallops. PULMONARY: Chest is clear to auscultation, no wheezing or crackles. Not a reliable as patient doesn't follow commands ABDOMEN: Soft, nontender, nondistended, normoactive bowel sounds. No palpable organomegaly. MUSCULOSKELETAL: No joint swelling or deformity. EXTREMITIES: No cyanosis, clubbing, or pedal edema. NEUROLOGICAL: Unable to assess due to her clinical condition SKIN: No rashes. - Labs CBC & Chem 7: 12/09/19 05:30 12/09/19 05:30 Labs: Abnormal Lab Results - Last 24 Hours (Table) 11/26/19 12/08/19 12/08/19 Range/Units 07:57 06:45 11:00 WBC (3.8-10.6) k/uL RBC (3.80-5.40) m/uL Hgb (11.4-16.0) gm/dL Hct (34.0-46.0) % RDW (11.5-15.5) % Plt Count (150-450) k/uL Lymphocytes # (Manual) 0.30 L (1.0-4.8) k/uL Myelocytes # (Manual) 0.03 H (0) k/uL Chloride (98-107) mmol/L Carbon Dioxide (22-30) mmol/L BUN (7-17) mg/dL Creatinine (0.52-1.04) mg/dL Glucose (74-99) mg/dL POC Glucose (mg/dL) (75-99) mg/dL Calcium (8.4-10.2) mg/dL Total Bilirubin (0.2-1.3) mg/dL AST (14-36) U/L ALT (4-34) U/L Alkaline Phosphatase (38-126) U/L Albumin (3.5-5.0) g/dL Crossmatch See Detail See Detail 12/08/19 12/08/19 12/08/19 Range/Units 11:44 18:08 20:06 WBC 2.6 L (3.8-10.6) k/uL RBC 2.55 L (3.80-5.40) m/uL Hgb 7.5 L (11.4-16.0) gm/dL Hct 23.5 L (34.0-46.0) % RDW 15.9 H (11.5-15.5) % Plt Count 33 L D (150-450) k/uL Lymphocytes # (Manual) 0.36 L (1.0-4.8) k/uL Myelocytes # (Manual) (0) k/uL Chloride (98-107) mmol/L Carbon Dioxide (22-30) mmol/L BUN (7-17) mg/dL Creatinine (0.52-1.04) mg/dL Glucose (74-99) mg/dL POC Glucose (mg/dL) 137 H 134 H (75-99) mg/dL Calcium (8.4-10.2) mg/dL Total Bilirubin (0.2-1.3) mg/dL AST (14-36) U/L ALT (4-34) U/L Alkaline Phosphatase (38-126) U/L Albumin (3.5-5.0) g/dL Crossmatch 12/08/19 12/09/19 12/09/19 Range/Units 23:57 05:30 05:30 WBC 2.5 L (3.8-10.6) k/uL RBC 2.46 L (3.80-5.40) m/uL Hgb 7.2 L (11.4-16.0) gm/dL Hct 22.3 L (34.0-46.0) % RDW 16.1 H (11.5-15.5) % Plt Count 20 L (150-450) k/uL Lymphocytes # (Manual) 0.50 L (1.0-4.8) k/uL Myelocytes # (Manual) (0) k/uL Chloride 113 H (98-107) mmol/L Carbon Dioxide 21 L (22-30) mmol/L BUN 71 H (7-17) mg/dL Creatinine 1.13 H (0.52-1.04) mg/dL Glucose 109 H (74-99) mg/dL POC Glucose (mg/dL) 125 H (75-99) mg/dL Calcium 8.0 L (8.4-10.2) mg/dL Total Bilirubin 2.2 H (0.2-1.3) mg/dL AST 103 H (14-36) U/L ALT 165 H (4-34) U/L Alkaline Phosphatase 308 H (38-126) U/L Albumin 3.0 L (3.5-5.0) g/dL Crossmatch 12/09/19 Range/Units 06:10 WBC (3.8-10.6) k/uL RBC (3.80-5.40) m/uL Hgb (11.4-16.0) gm/dL Hct (34.0-46.0) % RDW (11.5-15.5) % Plt Count (150-450) k/uL Lymphocytes # (Manual) (1.0-4.8) k/uL Myelocytes # (Manual) (0) k/uL Chloride (98-107) mmol/L Carbon Dioxide (22-30) mmol/L BUN (7-17) mg/dL Creatinine (0.52-1.04) mg/dL Glucose (74-99) mg/dL POC Glucose (mg/dL) 120 H (75-99) mg/dL Calcium (8.4-10.2) mg/dL Total Bilirubin (0.2-1.3) mg/dL AST (14-36) U/L ALT (4-34) U/L Alkaline Phosphatase (38-126) U/L Albumin (3.5-5.0) g/dL Crossmatch Assessment and Plan Plan: -Neutropenic fever in a patient getting chemotherapy for AML. No obvious source of infection although newly pneumonia cannot be ruled out. Empirically on l cefepime-. PICC line infection ruled out. Linezolid discontinued. Due to pancytopenia -Acute hypoxic respiratory failure. Chest x-ray- question fluid overload. Doppler ultrasound negative for DVT.-Slowly improving - small bowel obstruction-persistent, had a bowel movement on December 04. Clinically improving -Pancytopenia secondary to chemotherapy and slow to respond, patient the will receive PRBC transfusion today radiate. Along with the platelets -Severe anemia from receiving PRBC as needed -Severe thrombocytopenia receiving platelet transfusion as needed -AML-repeat bone marrow showing negative for the same. On Venclexta -Second degree type II AV block, occasional complete heart block: Cardiology is following the patient -Chronic kidney disease stage IV, multifactorial -Essential hypertension -Hypothyroid -Metabolic acidosis from renal failure -Depression not otherwise specified -IV TPN -Possible drug-induced hepatitis.-Vfend stoped -Full code
--- NOTE | 2019-12-09 11:04 | P.PN ---
Subjective Progress Note Date: 12/09/19 CHIEF COMPLAINT: Fever HISTORY OF PRESENT ILLNESS: We're following patient in regards to her small bowel obstruction. Computed tomography scan did show evidence of small bowel obstruction. Patient denies any vomiting. She did have a bowel movement. She is afebrile. WBC 2.5 hemoglobin 7.2 and platelets 20 patient did receive blood transfusion and platelet transfusion and hasn't had improvement in both her hemoglobin and platelets PHYSICAL EXAM: VITAL SIGNS: Reviewed. GENERAL: Patient jaundice HEENT: sclera icterus. Extraocular movements grossly intact. Moist buccal mucosa. Head is atraumatic, normocephalic. ABDOMEN: Soft. Distended NEUROLOGIC: Alert and oriented. Cranial nerves II through XII grossly intact. ASSESSMENT: 1. Small bowel obstruction 2. 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 Febrile neutropenia 4. Second-degree heart block followed by cardiology. 5. Pancytopenia 6. Elevated LFTs likely medication induced PLAN: -Continue conservative treatment -Continue nothing by mouth -Continue PPN for nutrition support Physician Reading Coach note has been reviewed by physician. Signing provider agrees with the documented findings, assessment, and plan of care. Objective - Vital Signs Vital signs: Vital Signs Temp 97.9 F 12/09/19 08:00 Pulse 56 L 12/09/19 09:14 Resp 18 12/09/19 08:00 BP 166/49 12/09/19 08:00 Pulse Ox 90 L 12/09/19 08:00 Intake & Output 12/08/19 12/09/19 12/09/19 18:59 06:59 18:59 Intake Total 2228 Output Total 200 Balance 2228 -200 Weight 40 kg Intake: Intake, IV Titration 1161 Amount Fat Emulsion 20% 250 ml 150 In Empty Bag 1 bag @ 21 mls/hr IV DAILY@1800 [facility] Rx#:[id number] Mvi, Adult No.4 with Vit 1011 K 10 ml Trace (Conc-1Ml/ Dose) 1 ml In Amino Acid 4.25%-D10w+Lytes*E* 1,000 ml @ 50 mls/hr IV . [id number] [facility] Rx#:[id number] Oral 0 Blood Product 1067 Platelet Irr Pheresis Pas 223 -C Unit [id number] Rc Irr As1 Unit 310 [id number] Output: Urine 200 Other: Voiding Method Diaper Diaper Diaper Incontinent # Voids 4 1 1 # Bowel Movements 2 - Labs CBC & Chem 7: 12/09/19 05:30 12/09/19 05:30 Labs: Abnormal Lab Results - Last 24 Hours (Table) 11/26/19 12/08/19 12/08/19 Range/Units 07:57 06:45 11:00 WBC (3.8-10.6) k/uL RBC (3.80-5.40) m/uL Hgb (11.4-16.0) gm/dL Hct (34.0-46.0) % RDW (11.5-15.5) % Plt Count (150-450) k/uL Lymphocytes # (Manual) 0.30 L (1.0-4.8) k/uL Myelocytes # (Manual) 0.03 H (0) k/uL Chloride (98-107) mmol/L Carbon Dioxide (22-30) mmol/L BUN (7-17) mg/dL Creatinine (0.52-1.04) mg/dL Glucose (74-99) mg/dL POC Glucose (mg/dL) (75-99) mg/dL Calcium (8.4-10.2) mg/dL Total Bilirubin (0.2-1.3) mg/dL AST (14-36) U/L ALT (4-34) U/L Alkaline Phosphatase (38-126) U/L Albumin (3.5-5.0) g/dL Crossmatch See Detail See Detail 12/08/19 12/08/19 12/08/19 Range/Units 11:44 18:08 20:06 WBC 2.6 L (3.8-10.6) k/uL RBC 2.55 L (3.80-5.40) m/uL Hgb 7.5 L (11.4-16.0) gm/dL Hct 23.5 L (34.0-46.0) % RDW 15.9 H (11.5-15.5) % Plt Count 33 L D (150-450) k/uL Lymphocytes # (Manual) 0.36 L (1.0-4.8) k/uL Myelocytes # (Manual) (0) k/uL Chloride (98-107) mmol/L Carbon Dioxide (22-30) mmol/L BUN (7-17) mg/dL Creatinine (0.52-1.04) mg/dL Glucose (74-99) mg/dL POC Glucose (mg/dL) 137 H 134 H (75-99) mg/dL Calcium (8.4-10.2) mg/dL Total Bilirubin (0.2-1.3) mg/dL AST (14-36) U/L ALT (4-34) U/L Alkaline Phosphatase (38-126) U/L Albumin (3.5-5.0) g/dL Crossmatch 12/08/19 12/09/19 12/09/19 Range/Units 23:57 05:30 05:30 WBC 2.5 L (3.8-10.6) k/uL RBC 2.46 L (3.80-5.40) m/uL Hgb 7.2 L (11.4-16.0) gm/dL Hct 22.3 L (34.0-46.0) % RDW 16.1 H (11.5-15.5) % Plt Count 20 L (150-450) k/uL Lymphocytes # (Manual) 0.50 L (1.0-4.8) k/uL Myelocytes # (Manual) (0) k/uL Chloride 113 H (98-107) mmol/L Carbon Dioxide 21 L (22-30) mmol/L BUN 71 H (7-17) mg/dL Creatinine 1.13 H (0.52-1.04) mg/dL Glucose 109 H (74-99) mg/dL POC Glucose (mg/dL) 125 H (75-99) mg/dL Calcium 8.0 L (8.4-10.2) mg/dL Total Bilirubin 2.2 H (0.2-1.3) mg/dL AST 103 H (14-36) U/L ALT 165 H (4-34) U/L Alkaline Phosphatase 308 H (38-126) U/L Albumin 3.0 L (3.5-5.0) g/dL Crossmatch 12/09/19 Range/Units 06:10 WBC (3.8-10.6) k/uL RBC (3.80-5.40) m/uL Hgb (11.4-16.0) gm/dL Hct (34.0-46.0) % RDW (11.5-15.5) % Plt Count (150-450) k/uL Lymphocytes # (Manual) (1.0-4.8) k/uL Myelocytes # (Manual) (0) k/uL Chloride (98-107) mmol/L Carbon Dioxide (22-30) mmol/L BUN (7-17) mg/dL Creatinine (0.52-1.04) mg/dL Glucose (74-99) mg/dL POC Glucose (mg/dL) 120 H (75-99) mg/dL Calcium (8.4-10.2) mg/dL Total Bilirubin (0.2-1.3) mg/dL AST (14-36) U/L ALT (4-34) U/L Alkaline Phosphatase (38-126) U/L Albumin (3.5-5.0) g/dL Crossmatch
[2019-12-09] MEDS ORDERED: [UNRECOGNIZED DRUG - OTHER] IV SCH ×7 (12:00)
[2019-12-09] MEDS ORDERED: CALCIUM GLUCONATE IV SCH ×7 (12:00)
[2019-12-09] MEDS ORDERED: POTASSIUM PHOSPHATE IV SCH ×7 (12:00)
[2019-12-09] MEDS ORDERED: SODIUM ACETATE IV SCH ×7 (12:00)
[2019-12-09] MEDS: amLODIPine 10 MG TAB PO SCH (12:04)
[2019-12-09] MEDS: SODIUM BICARBONATE TAB 650 MG TAB PO SCH ×3 (12:04→21:17)
[2019-12-09] MEDS: MAGNESIUM OXIDE 400 MG TAB PO SCH ×3 (12:04→21:17)
[2019-12-09] MEDS: FOLIC ACID 1 MG TAB PO SCH (12:04)
[2019-12-09] MEDS: ESCITALOPRAM 10 MG TAB PO SCH (12:04)
[2019-12-09 12:21] LABS: Glucose,Whole Blood 131 mg/dL (75-99)
--- NOTE | 2019-12-09 12:50 | P.PN ---
Subjective Progress Note Date: 12/09/19 CHIEF COMPLAINT: Abnormal EKG/bradycardia HISTORY OF PRESENT ILLNESS: Patient examined this morning at the bedside. Denies chest pain or pressure. Denies shortness of breath. Denies lightheadedness or dizziness. Her heart rate is in the 50s. Remains in second degree block. Platelet count 20. PHYSICAL EXAM: VITAL SIGNS: Reviewed. GENERAL: Well-developed in no acute distress. HEENT: Head is normocephalic. Pupils are equal, round. Sclerae anicteric. Mucous membranes of the mouth are moist. Neck supple. No JVD or thyromegaly LUNGS: Respirations even and unlabored. Lungs essentially clear to auscultation bilaterally. HEART: Regular rate and rhythm. S1 and S2 heard. Systolic murmur. EXTREMITIES: Normal range of motion. No clubbing or cyanosis. Peripheral pulses intact. No lower extremity edema NEUROLOGIC: Lethargic. ASSESSMENT: 1. Complete heart block, resolved, now maintaining second degree heart block 2. Hypertension 3. Acute myeloid leukemia 4. Pancytopenia 5. Mild aortic stenosis PLAN: Patient would require PPM for second degree heart block. However, due to patie nts current condition, pancytopenia, and unknown prognosis regarding AML, patient is not a candidate at this time for PPM insertion Continue Hydralazine 10mg IV q8 hours PRN for hypertension as patient is refusing oral medications Recommend internal medicine and oncology discussing code status and prognosis with the patient and her daughter We will follow on an as-needed basis. Please call with questions or concerns Nurse practitioner note has been reviewed by physician. Signing provider agrees with the documented findings, assessment, and plan of care. Objective - Vital Signs Vital signs: Vital Signs Temp 97.9 F 12/09/19 08:00 Pulse 52 L 12/09/19 12:34 Resp 18 12/09/19 08:00 BP 166/49 12/09/19 08:00 Pulse Ox 90 L 12/09/19 08:00 Intake & Output 12/08/19 12/09/19 12/09/19 18:59 06:59 18:59 Intake Total 2228 Output Total 200 Balance 2228 -200 Weight 40 kg Intake: Intake, IV Titration 1161 Amount Fat Emulsion 20% 250 ml 150 In Empty Bag 1 bag @ 21 mls/hr IV DAILY@1800 [facility] Rx#:[id number] Mvi, Adult No.4 with Vit 1011 K 10 ml Trace (Conc-1Ml/ Dose) 1 ml In Amino Acid 4.25%-D10w+Lytes*E* 1,000 ml @ 50 mls/hr IV . [id number] [facility] Rx#:[id number] Oral 0 Blood Product 1067 Platelet Irr Pheresis Pas 223 -C Unit [id number] Rc Irr As1 Unit 310 [id number] Output: Urine 200 Other: Voiding Method Diaper Diaper Diaper Incontinent # Voids 4 1 1 # Bowel Movements 2 - Labs CBC & Chem 7: 12/09/19 05:30 12/09/19 05:30 Labs: Abnormal Lab Results - Last 24 Hours (Table) 11/26/19 12/08/19 12/08/19 Range/Units 07:57 11:00 18:08 WBC (3.8-10.6) k/uL RBC (3.80-5.40) m/uL Hgb (11.4-16.0) gm/dL Hct (34.0-46.0) % RDW (11.5-15.5) % Plt Count (150-450) k/uL Lymphocytes # (Manual) (1.0-4.8) k/uL Chloride (98-107) mmol/L Carbon Dioxide (22-30) mmol/L BUN (7-17) mg/dL Creatinine (0.52-1.04) mg/dL Glucose (74-99) mg/dL POC Glucose (mg/dL) 134 H (75-99) mg/dL Calcium (8.4-10.2) mg/dL Total Bilirubin (0.2-1.3) mg/dL AST (14-36) U/L ALT (4-34) U/L Alkaline Phosphatase (38-126) U/L Albumin (3.5-5.0) g/dL Crossmatch See Detail See Detail 12/08/19 12/08/19 12/09/19 Range/Units 20:06 23:57 05:30 WBC 2.6 L (3.8-10.6) k/uL RBC 2.55 L (3.80-5.40) m/uL Hgb 7.5 L (11.4-16.0) gm/dL Hct 23.5 L (34.0-46.0) % RDW 15.9 H (11.5-15.5) % Plt Count 33 L D (150-450) k/uL Lymphocytes # (Manual) 0.36 L (1.0-4.8) k/uL Chloride 113 H (98-107) mmol/L Carbon Dioxide 21 L (22-30) mmol/L BUN 71 H (7-17) mg/dL Creatinine 1.13 H (0.52-1.04) mg/dL Glucose 109 H (74-99) mg/dL POC Glucose (mg/dL) 125 H (75-99) mg/dL Calcium 8.0 L (8.4-10.2) mg/dL Total Bilirubin 2.2 H (0.2-1.3) mg/dL AST 103 H (14-36) U/L ALT 165 H (4-34) U/L Alkaline Phosphatase 308 H (38-126) U/L Albumin 3.0 L (3.5-5.0) g/dL Crossmatch 12/09/19 12/09/19 12/09/19 Range/Units 05:30 06:10 12:09 WBC 2.5 L (3.8-10.6) k/uL RBC 2.46 L (3.80-5.40) m/uL Hgb 7.2 L (11.4-16.0) gm/dL Hct 22.3 L (34.0-46.0) % RDW 16.1 H (11.5-15.5) % Plt Count 20 L (150-450) k/uL Lymphocytes # (Manual) 0.50 L (1.0-4.8) k/uL Chloride (98-107) mmol/L Carbon Dioxide (22-30) mmol/L BUN (7-17) mg/dL Creatinine (0.52-1.04) mg/dL Glucose (74-99) mg/dL POC Glucose (mg/dL) 120 H 131 H (75-99) mg/dL Calcium (8.4-10.2) mg/dL Total Bilirubin (0.2-1.3) mg/dL AST (14-36) U/L ALT (4-34) U/L Alkaline Phosphatase (38-126) U/L Albumin (3.5-5.0) g/dL Crossmatch
[2019-12-09] MEDS: VENETOCLAX 100 MG PO SCH (14:01)
[2019-12-09] MEDS: FILGRASTIM-SNDZ 300 MCG/0.5 ML SYRINGE SQ SCH (14:01)
--- NOTE | 2019-12-09 16:34 | PN ---
PROGRESS NOTE DATE OF SERVICE: 12/09/2019 REASON FOR FOLLOWUP: Pneumonia, infection. INTERVAL HISTORY: Patient is currently afebrile. The patient is breathing comfortably. The patient remains to be lethargic and did not answer any question. Overall oral intake has improved. No vomiting or diarrhea has been reported by nursing staff. PHYSICAL EXAMINATION: Blood pressure 130/52 with a pulse of 52, temperature 97.5. She is 91% on room air. General description is an elderly female, lying in bed in no distress. Respiratory System: Unlabored breathing, clear to auscultation anteriorly. HEART S1, S2. Regular rate and rhythm. ABDOMEN: Soft, no tenderness. LABS: Hemoglobin 7.2, white count 2.5, BUN of 71, creatinine 1.13. Blood culture negative. DIAGNOSTIC IMPRESSION AND PLAN: Patient admitted to the hospital with febrile neutropenia with initial concern for possible line sepsis which has been ruled out. Subsequently, with concern for the pneumonia that has been adequately treated. Patient fever resolved. White count has improved and is currently being monitored closely off antibiotic therapy. Overall prognosis remains poor per the nurse working on possible hospice which may . Continue supportive care. MMODL / IJN: [id number] /
[2019-12-09 17:11] LABS: Glucose,Whole Blood 113 mg/dL (75-99)
--- NOTE | 2019-12-09 17:46 | P.PN ---
Subjective Progress Note Date: 12/09/19 Principal diagnosis: Pancytopenia, AML Roxane does not seem to be improving, we are unable to increase her Venetoclax to ensure a remission of her AML, her performance is on a persistent decline, and her response to transfusion is minimal. We have discussed with patient and family and recommendations for goals of care to be changed to palliative/hospice. Most appropriate given her rapid and progressive decline. Objective - Vital Signs Vital signs: Vital Signs Temp 97.5 F L 12/09/19 16:00 Pulse 69 12/09/19 16:00 Resp 18 12/09/19 16:00 BP 156/65 12/09/19 16:00 Pulse Ox 90 L 12/09/19 16:00 Intake & Output 12/08/19 12/09/19 12/09/19 18:59 06:59 18:59 Intake Total 2228 300 Output Total 200 1200 Balance 2228 -200 -900 Weight 40 kg Intake: Intake, IV Titration 1161 300 Amount Fat Emulsion 20% 250 ml 150 In Empty Bag 1 bag @ 21 mls/hr IV DAILY@1800 [facility] Rx#:[id number] Mvi, Adult No.4 with Vit 1011 K 10 ml Trace (Conc-1Ml/ Dose) 1 ml In Amino Acid 4.25%-D10w+Lytes*E* 1,000 ml @ 50 mls/hr IV . [id number] [facility] Rx#:[id number] Sodium Acetate 20 meq 300 Potassium Phosphate 30 mmol Calcium Gluconate 1 gm Magnesium Sulfate gm 1 gm Mvi, Adult No.4 with Vit K 10 ml Trace (Conc- 1Ml/Dose) 1 ml In Amino Acid 4.25%-D10w 1,000 ml @ 50 mls/hr IV .[id number] [facility] Rx#:[id number] Oral 0 Blood Product 1067 Platelet Irr Pheresis Pas 223 -C Unit [id number] Rc Irr As1 Unit 310 [id number] Output: Urine 200 1200 Other: Voiding Method Diaper Diaper Diaper Incontinent # Voids 4 1 1 # Bowel Movements 2 - Exam - Constitutional General appearance: Present:Lethargic, weak, easily re-oriented confusion - EENT Eyes: Present: anicteric sclerae, EOMI ENT: Present: hearing grossly normal - Respiratory Respiratory: bilateral: CTA (weak inspiratory effort) - Cardiovascular Details: bradycardia Heart sounds: normal: S1, S2 - Peripheral edema leg Peripheral Edema: bilateral: None - Gastrointestinal General gastrointestinal: Present: distended, hyperactive bowel sounds, soft - Neurologic Neurologic: Present: JERRI - Musculoskeletal Musculoskeletal: Present: generalized weakness - Psychiatric Psychiatric: Present: after continued stimuli awakens enough - Labs CBC & Chem 7: 12/09/19 05:30 12/09/19 05:30 Labs: Abnormal Lab Results - Last 24 Hours (Table) 12/08/19 12/08/19 12/08/19 Range/Units 18:08 20:06 23:57 WBC 2.6 L (3.8-10.6) k/uL RBC 2.55 L (3.80-5.40) m/uL Hgb 7.5 L (11.4-16.0) gm/dL Hct 23.5 L (34.0-46.0) % RDW 15.9 H (11.5-15.5) % Plt Count 33 L D (150-450) k/uL Lymphocytes # (Manual) 0.36 L (1.0-4.8) k/uL Chloride (98-107) mmol/L Carbon Dioxide (22-30) mmol/L BUN (7-17) mg/dL Creatinine (0.52-1.04) mg/dL Glucose (74-99) mg/dL POC Glucose (mg/dL) 134 H 125 H (75-99) mg/dL Calcium (8.4-10.2) mg/dL Total Bilirubin (0.2-1.3) mg/dL AST (14-36) U/L ALT (4-34) U/L Alkaline Phosphatase (38-126) U/L Albumin (3.5-5.0) g/dL 12/09/19 12/09/19 12/09/19 Range/Units 05:30 05:30 06:10 WBC 2.5 L (3.8-10.6) k/uL RBC 2.46 L (3.80-5.40) m/uL Hgb 7.2 L (11.4-16.0) gm/dL Hct 22.3 L (34.0-46.0) % RDW 16.1 H (11.5-15.5) % Plt Count 20 L (150-450) k/uL Lymphocytes # (Manual) 0.50 L (1.0-4.8) k/uL Chloride 113 H (98-107) mmol/L Carbon Dioxide 21 L (22-30) mmol/L BUN 71 H (7-17) mg/dL Creatinine 1.13 H (0.52-1.04) mg/dL Glucose 109 H (74-99) mg/dL POC Glucose (mg/dL) 120 H (75-99) mg/dL Calcium 8.0 L (8.4-10.2) mg/dL Total Bilirubin 2.2 H (0.2-1.3) mg/dL AST 103 H (14-36) U/L ALT 165 H (4-34) U/L Alkaline Phosphatase 308 H (38-126) U/L Albumin 3.0 L (3.5-5.0) g/dL 12/09/19 12/09/19 Range/Units 12:09 17:01 WBC (3.8-10.6) k/uL RBC (3.80-5.40) m/uL Hgb (11.4-16.0) gm/dL Hct (34.0-46.0) % RDW (11.5-15.5) % Plt Count (150-450) k/uL Lymphocytes # (Manual) (1.0-4.8) k/uL Chloride (98-107) mmol/L Carbon Dioxide (22-30) mmol/L BUN (7-17) mg/dL Creatinine (0.52-1.04) mg/dL Glucose (74-99) mg/dL POC Glucose (mg/dL) 131 H 113 H (75-99) mg/dL Calcium (8.4-10.2) mg/dL Total Bilirubin (0.2-1.3) mg/dL AST (14-36) U/L ALT (4-34) U/L Alkaline Phosphatase (38-126) U/L Albumin (3.5-5.0) g/dL Microbiology - Last 24 Hours (Table) 12/08/19 12:30 Blood Culture - Preliminary Blood No Growth after 24 hours 12/08/19 11:00 Blood Culture - Preliminary Blood No Growth after 24 hours Assessment and Plan Plan: Assessment and recommendations: Mental Status Changes: - CT head rule out bleed with persistent low platelets - Metabolic encephalopathy and increased LFTs Small bowel obstruction: - Surgery is following - With Thrombocytopenia no intervention able - NPO, Continue on TPN Febrile Neutropenia: Resolved - ID following - Broad abx Acute on Chronic Renal Failure: - Monitor daily 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 - Her oral venetoclax was held for low counts and presentation. - Restarted and is to continue - Recent bone marrow biopsy showing no residual acute leukemia! - GCSF was administered and was started 11/29. She will see Dr. Chavez in 2 weeks. - Dacogen on hold last treatment 11/03 - Unable to acheive therapeutic dosing secondary to other mobitities and declining performance. Left upper ex picc associated DVT - No AC therapy with Thrombocytopenia Pancytopenia - Secondary to AML and Chemo - improved - Continue to monitor daily - Supportive transfusions PRN - Patient's recent bone marrow biopsy showed no residual leukemia! Patient started and to continue on G-CSF - transfuse PRBC irradiated today hemoglobin less than 7 - Transfuse platelets less than 10K - Crossmatched platelets Third degree heart block: - Cardiology following - With persistent thrombocytopenia, pacemaker is unable to be placed at this time. - If pacemaker is felt to be emergent the option of transfusion of platelets during the procedure, Neutrophils are sufficient/safe for procedure Increased LFTs - Recheck coags today with persistently low, not improved thrombocytopenia - Ultrasound Liver reviewed no acute finding - Review of medication Plan: 12/09/19 Goals of care changed to palliative, hospice care is appropriate. Patient is rapidly declining in overall performance and unable to continue on a treatment dose effective to remain in remission. Long discussion with patient and family - Code status has been changed. Physician Attest: I have completed the full history and physical and agree with dictation, dictated as a scribe
[2019-12-09] MEDS: FAT EMULSION 20% 250 ML in EMPTY BAG 1 BAG IV SCH (18:43)
[2019-12-09] MEDS: HYDROmorphone 0.5 MG/0.5 ML SYRINGE IVP PRN (19:50)
[2019-12-10] MEDS: hydrALAZINE HCL 20 MG/ML 1 ML VIAL IVP PRN (00:20)
[2019-12-10 00:23] LABS: Glucose,Whole Blood 123 mg/dL (75-99)
[2019-12-10] MEDS: INSULIN ASPART (NovoLOG) 100 UNIT/ML VIAL SQ SCH ×3 (00:41→12:12)
[2019-12-10] MEDS: hydrALAZINE HCL 50 MG TAB PO SCH ×3 (00:41→12:11)
[2019-12-10 04:13] VITALS: TEMP 97.7
[2019-12-10] MEDS: HYDROmorphone 0.5 MG/0.5 ML SYRINGE IVP PRN (04:45)
[2019-12-10 06:19] LABS: Glucose,Whole Blood 125 mg/dL (75-99)
[2019-12-10] MEDS: LEVOTHYROXINE 100 MCG TAB PO SCH (06:19)
[2019-12-10 07:03] LABS: Potassium 4.2 mmol/L (3.5-5.1)
[2019-12-10 07:04] LABS: Calcium 7.7 mg/dL (8.4-10.2); Magnesium 2.1 mg/dL (1.6-2.3); Phosphorus 5.1 mg/dL (2.5-4.5); Total Bilirubin 1.8 mg/dL (0.2-1.3); Total Protein 6.2 g/dL (6.3-8.2)
[2019-12-10 07:33] LABS: HCT 20.3 % (34.0-46.0); MCH 29.6 pg (25.0-35.0); MCHC 32.4 g/dL (31.0-37.0); MCV 91.3 fL (80.0-100.0); Mean Platelet Volume 9.3; RBC 2.22 m/uL (3.80-5.40); WBC 1.6 k/uL (3.8-10.6)
[2019-12-10 07:35] LABS: HGB 6.6 gm/dL (11.4-16.0); Platelet Count 12 k/uL (150-450)
[2019-12-10] MEDS ORDERED: FUROSEMIDE 10 MG/ML 2 ML VIAL IV ONE (08:00)
[2019-12-10 08:41] LABS: Band Neutrophils % 1 %; Lymphocytes # (M) 0.22 k/uL (1.0-4.8); Monocytes # (M) 0.48 k/uL (0-1.0); Myelocytes # (M) 0.02 k/uL (0); Myelocytes % 1 %; Neutrophils % (M) 56 %; Nucleated Red Blood Cells 0 /100 WBC (0-0); Poikilocytosis (M) Present; Total Cells Counted 200
[2019-12-10] MEDS: FILGRASTIM-SNDZ 300 MCG/0.5 ML SYRINGE SQ SCH (08:48)
[2019-12-10] MEDS: IPRATROPIUM-ALBUTEROL 3 ML NEB INHALATION SCH ×3 (08:49→16:23)
[2019-12-10] MEDS: amLODIPine 10 MG TAB PO SCH (08:50)
[2019-12-10] MEDS: VENETOCLAX 100 MG PO SCH (08:50)
[2019-12-10] MEDS: FOLIC ACID 1 MG TAB PO SCH (08:50)
[2019-12-10] MEDS: SODIUM BICARBONATE TAB 650 MG TAB PO SCH (08:50)
[2019-12-10] MEDS: MAGNESIUM OXIDE 400 MG TAB PO SCH (08:50)
[2019-12-10] MEDS: ESCITALOPRAM 10 MG TAB PO SCH (08:50)
[2019-12-10 08:52] VITALS: PULSE 45; RESP 16
[2019-12-10] MEDS ORDERED: POTASSIUM PHOSPHATE IV SCH ×8 (10:00)
[2019-12-10] MEDS ORDERED: SODIUM ACETATE IV SCH ×8 (10:00)
[2019-12-10] MEDS ORDERED: POTASSIUM ACETATE IV SCH ×8 (10:00)
[2019-12-10] MEDS ORDERED: [UNRECOGNIZED DRUG - OTHER] IV SCH ×8 (10:00)
--- NOTE | 2019-12-10 11:08 | P.PN ---
Subjective Progress Note Date: 12/10/19 CHIEF COMPLAINT: Fever HISTORY OF PRESENT ILLNESS: We're following patient in regards to her small bowel obstruction. Computed tomography scan did show evidence of small bowel obstruction. Patient denies any vomiting. She did have a bowel movement. She is afebrile. WBC 1.6 hemoglobin 6.6 platelets 12. Patient and family had meeting with hospice nurse. Awaiting family's final decision in regards to proceeding with hospice. CODE STATUS DO NOT RESUSCITATE PHYSICAL EXAM: VITAL SIGNS: Reviewed. GENERAL: Patient jaundice HEENT: sclera icterus. Extraocular movements grossly intact. Moist buccal mucosa. Head is atraumatic, normocephalic. ABDOMEN: Soft. Mildly Distended NEUROLOGIC: Sleeping. Cranial nerves II through XII grossly intact. ASSESSMENT: 1. Small bowel obstruction 2. 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 Febrile neutropenia 4. Second-degree heart block followed by cardiology. 5. Pancytopenia 6. Elevated LFTs likely medication induced PLAN: -Continue conservative treatment -Continue nothing by mouth -Continue PPN for nutrition support Physician Application Security Architect note has been reviewed by physician. Signing provider agrees with the documented findings, assessment, and plan of care. Objective - Vital Signs Vital signs: Vital Signs Temp 97.7 F 12/10/19 08:00 Pulse 45 L 12/10/19 08:00 Resp 16 12/10/19 08:00 BP 170/71 12/10/19 08:00 Pulse Ox 97 12/10/19 08:00 Intake & Output 12/09/19 12/10/19 12/10/19 18:59 06:59 18:59 Intake Total 300 Output Total 1200 Balance -900 Weight 43.5 kg Intake: Intake, IV Titration 300 Amount Sodium Acetate 20 meq 300 Potassium Phosphate 30 mmol Calcium Gluconate 1 gm Magnesium Sulfate gm 1 gm Mvi, Adult No.4 with Vit K 10 ml Trace (Conc- 1Ml/Dose) 1 ml In Amino Acid 4.25%-D10w 1,000 ml @ 50 mls/hr IV .[id number] [facility] Rx#:[id number] Output: Urine 1200 Other: Voiding Method Diaper Diaper Diaper Incontinent Incontinent Incontinent # Voids 1 0 - Labs CBC & Chem 7: 12/10/19 06:40 12/10/19 06:40 Labs: Abnormal Lab Results - Last 24 Hours (Table) 12/09/19 12/09/19 12/10/19 Range/Units 12:09 17:01 00:22 WBC (3.8-10.6) k/uL RBC (3.80-5.40) m/uL Hgb (11.4-16.0) gm/dL Hct (34.0-46.0) % RDW (11.5-15.5) % Plt Count (150-450) k/uL Neutrophils # (Manual) (1.3-7.7) k/uL Lymphocytes # (Manual) (1.0-4.8) k/uL Myelocytes # (Manual) (0) k/uL Chloride (98-107) mmol/L BUN (7-17) mg/dL Creatinine (0.52-1.04) mg/dL Glucose (74-99) mg/dL POC Glucose (mg/dL) 131 H 113 H 123 H (75-99) mg/dL Calcium (8.4-10.2) mg/dL Phosphorus (2.5-4.5) mg/dL Total Bilirubin (0.2-1.3) mg/dL AST (14-36) U/L ALT (4-34) U/L Alkaline Phosphatase (38-126) U/L Total Protein (6.3-8.2) g/dL Albumin (3.5-5.0) g/dL 12/10/19 12/10/19 12/10/19 Range/Units 06:15 06:40 06:40 WBC 1.6 L (3.8-10.6) k/uL RBC 2.22 L (3.80-5.40) m/uL Hgb 6.6 L* (11.4-16.0) gm/dL Hct 20.3 L (34.0-46.0) % RDW 16.0 H (11.5-15.5) % Plt Count 12 L* (150-450) k/uL Neutrophils # (Manual) 0.90 L (1.3-7.7) k/uL Lymphocytes # (Manual) 0.22 L (1.0-4.8) k/uL Myelocytes # (Manual) 0.02 H (0) k/uL Chloride 114 H (98-107) mmol/L BUN 73 H (7-17) mg/dL Creatinine 1.05 H (0.52-1.04) mg/dL Glucose 116 H (74-99) mg/dL POC Glucose (mg/dL) 125 H (75-99) mg/dL Calcium 7.7 L (8.4-10.2) mg/dL Phosphorus 5.1 H (2.5-4.5) mg/dL Total Bilirubin 1.8 H (0.2-1.3) mg/dL AST 79 H (14-36) U/L ALT 148 H (4-34) U/L Alkaline Phosphatase 271 H (38-126) U/L Total Protein 6.2 L (6.3-8.2) g/dL Albumin 3.0 L (3.5-5.0) g/dL Microbiology - Last 24 Hours (Table) 12/08/19 12:30 Blood Culture - Preliminary Blood No Growth after 24 hours 12/08/19 11:00 Blood Culture - Preliminary Blood No Growth after 24 hours
[2019-12-10 11:36] LABS: Glucose,Whole Blood 103 mg/dL (75-99)
--- NOTE | 2019-12-10 11:37 | P.PN ---
Subjective 74-year-old patient who follows with Dr. Boyd. Oncologist is Dr. Merrill. Chronic stable medical conditions include hypertension, hypothyroid, chronic kidney disease,. Patient has been diagnosed with AML. Has been getting chemotherapy. Patient now presents with decreased appetite nausea and vomiting 1 today. Also had fever. 100.3 documented here. Tired and rundown. Admitted for the same. Started on IV fluids. Denies any sores in the mouth. No diarrhea. No skin changes. Admitted with neutropenic fever. Empirically started on vancomycin and Zosyn. Because of renal function changed to linezolid. Also on cefepime. Patient became short of breath. Given a dose of IV Lasix. Decreased oral intake. Computed tomography scan of the chest nonspecific. Doppler ultrasound of lower extremity negative for DVT.I was informed by Yvrose from oncology that patient repeat bone marrow came back negative for AML. G-CSF was started.had small bowel obstruction-no NG tube because of low platelets.. rather depressed started on Lexapro. went into complete heart block-then 2 second-degree heart block. No further intervention per cardiology.. irradiated PRBC and platelets transfused. Placed on TPN. Today-patient platelets are dropped again. Remains in second-degree block. Had some nausea. Some clear liquids were attempted. Tired. 12/07/2019 Patient had a bowel movement today does have good bowel sounds were still not read tolerating oral diet. Patient is severely thrombocytopenic awaiting the transfusion of irradiated platelets. Patient is being treated for pneumonia linezolid was discontinued as patient is a pancytopenic. There is no evidence of gram-positive infection at this time. Patient is receiving GM-CSF at this time. Patient was treated for the acute myeloid leukemia with chemotherapy which is in remission at this time. Patient overall clinical condition is guarded and patient prognosis for patient has second-degree type II AV block for which patient will need a pacemaker unfortunately unable to have the procedure done because of the severe thrombocytopenia. 12/08/2019 Patient overall condition did not improve patient is not doing well patient remains in second-degree type II AV block patient is unable to tolerate diet patient remains on TPN barely arousable and barely responsive we will discuss the CODE STATUS with the daughter today. 12/09/2019 I did discuss with the daughter regarding the CODE STATUS in the patient will be seen by the daughter and she'll make the decision. Patient is bit elevated today although still nonverbal. Bone marrow Appears to be responding patient's platelet count is better not sure if this is from transfusion and hemoglobin is better because of transfusion 12/10/2019 Patient did not have any improvement after discussion with oncology family medical decision of hospice patient is presently comfort care awaiting the hospice services to take over. Review of systems: Unable to obtain due to her clinical condition All inpatient medications were reviewed and appropriate changes in these medications as dictated in the interval history and assessment and plan. Objective - Vital Signs Vital signs: Vital Signs Temp 97.7 F 12/10/19 08:00 Pulse 45 L 12/10/19 08:00 Resp 16 12/10/19 11:12 BP 170/71 12/10/19 08:00 Pulse Ox 97 12/10/19 08:00 Intake & Output 12/09/19 12/10/19 12/10/19 18:59 06:59 18:59 Intake Total 300 Output Total 1200 Balance -900 Weight 43.5 kg Intake: Intake, IV Titration 300 Amount Sodium Acetate 20 meq 300 Potassium Phosphate 30 mmol Calcium Gluconate 1 gm Magnesium Sulfate gm 1 gm Mvi, Adult No.4 with Vit K 10 ml Trace (Conc- 1Ml/Dose) 1 ml In Amino Acid 4.25%-D10w 1,000 ml @ 50 mls/hr IV .[id number] [facility] Rx#:[id number] Output: Urine 1200 Other: Voiding Method Diaper Diaper Diaper Incontinent Incontinent Incontinent # Voids 1 0 0 - Exam PHYSICAL EXAMINATION: GENERAL: Patient is comfortable barely arousable HEENT: Pupils are round and equally reacting to light. EOMI. No scleral icterus. Does have conjunctival pallor. Normocephalic, atraumatic. No pharyngeal erythema. No thyromegaly. CARDIOVASCULAR: S1 and S2 present. No murmurs, rubs, or gallops. PULMONARY: Chest is clear to auscultation, no wheezing or crackles. Not a reliable as patient doesn't follow commands ABDOMEN: Soft, nontender, nondistended, normoactive bowel sounds. No palpable organomegaly. MUSCULOSKELETAL: No joint swelling or deformity. EXTREMITIES: No cyanosis, clubbing, or pedal edema. NEUROLOGICAL: Unable to assess due to her clinical condition SKIN: No rashes. - Labs CBC & Chem 7: 12/10/19 06:40 12/10/19 06:40 Labs: Abnormal Lab Results - Last 24 Hours (Table) 12/08/19 12/09/19 12/09/19 Range/Units 11:00 12:09 17:01 WBC (3.8-10.6) k/uL RBC (3.80-5.40) m/uL Hgb (11.4-16.0) gm/dL Hct (34.0-46.0) % RDW (11.5-15.5) % Plt Count (150-450) k/uL Neutrophils # (Manual) (1.3-7.7) k/uL Lymphocytes # (Manual) (1.0-4.8) k/uL Myelocytes # (Manual) (0) k/uL Chloride (98-107) mmol/L BUN (7-17) mg/dL Creatinine (0.52-1.04) mg/dL Glucose (74-99) mg/dL POC Glucose (mg/dL) 131 H 113 H (75-99) mg/dL Calcium (8.4-10.2) mg/dL Phosphorus (2.5-4.5) mg/dL Total Bilirubin (0.2-1.3) mg/dL AST (14-36) U/L ALT (4-34) U/L Alkaline Phosphatase (38-126) U/L Total Protein (6.3-8.2) g/dL Albumin (3.5-5.0) g/dL Crossmatch See Detail 12/10/19 12/10/19 12/10/19 Range/Units 00:22 06:15 06:40 WBC (3.8-10.6) k/uL RBC (3.80-5.40) m/uL Hgb (11.4-16.0) gm/dL Hct (34.0-46.0) % RDW (11.5-15.5) % Plt Count (150-450) k/uL Neutrophils # (Manual) (1.3-7.7) k/uL Lymphocytes # (Manual) (1.0-4.8) k/uL Myelocytes # (Manual) (0) k/uL Chloride 114 H (98-107) mmol/L BUN 73 H (7-17) mg/dL Creatinine 1.05 H (0.52-1.04) mg/dL Glucose 116 H (74-99) mg/dL POC Glucose (mg/dL) 123 H 125 H (75-99) mg/dL Calcium 7.7 L (8.4-10.2) mg/dL Phosphorus 5.1 H (2.5-4.5) mg/dL Total Bilirubin 1.8 H (0.2-1.3) mg/dL AST 79 H (14-36) U/L ALT 148 H (4-34) U/L Alkaline Phosphatase 271 H (38-126) U/L Total Protein 6.2 L (6.3-8.2) g/dL Albumin 3.0 L (3.5-5.0) g/dL Crossmatch 12/10/19 Range/Units 06:40 WBC 1.6 L (3.8-10.6) k/uL RBC 2.22 L (3.80-5.40) m/uL Hgb 6.6 L* (11.4-16.0) gm/dL Hct 20.3 L (34.0-46.0) % RDW 16.0 H (11.5-15.5) % Plt Count 12 L* (150-450) k/uL Neutrophils # (Manual) 0.90 L (1.3-7.7) k/uL Lymphocytes # (Manual) 0.22 L (1.0-4.8) k/uL Myelocytes # (Manual) 0.02 H (0) k/uL Chloride (98-107) mmol/L BUN (7-17) mg/dL Creatinine (0.52-1.04) mg/dL Glucose (74-99) mg/dL POC Glucose (mg/dL) (75-99) mg/dL Calcium (8.4-10.2) mg/dL Phosphorus (2.5-4.5) mg/dL Total Bilirubin (0.2-1.3) mg/dL AST (14-36) U/L ALT (4-34) U/L Alkaline Phosphatase (38-126) U/L Total Protein (6.3-8.2) g/dL Albumin (3.5-5.0) g/dL Crossmatch Microbiology - Last 24 Hours (Table) 12/08/19 12:30 Blood Culture - Preliminary Blood No Growth after 24 hours 12/08/19 11:00 Blood Culture - Preliminary Blood No Growth after 24 hours Assessment and Plan Plan: -Neutropenic fever in a patient getting chemotherapy for AML. -Acute hypoxic respiratory failure. Secondary to pneumonia most probably - small bowel obstruction-persistent, this actually improved -Pancytopenia secondary to chemotherapy and slow to respond, patient received multiple units of PRBC and platelet transfusion presently hospice -Severe anemia from receiving PRBC as needed -Severe thrombocytopenia receiving platelet transfusion as needed -AML-repeat bone marrow showing negative for the same. On Venclexta, patient only received the induction chemotherapy at a low dose the and patient even didn't tolerate that with significant affect of the bone marrow which never recovered because of these reasons her prognosis is extremely poor patient was subsequently made hospice of the discussion with oncology by family -Second degree type II AV block, occasional complete heart block: -Chronic kidney disease stage IV, multifactorial -Essential hypertension -Hypothyroid -Metabolic acidosis from renal failure -Depression not otherwise specified -IV TPN Patient is presently comfort care and hospice only
[2019-12-10 13:53] VITALS: BMI 23.1
[2019-12-10 16:42] VITALS: BP 160/60
--- NOTE | 2019-12-10 16:50 | P.DS ---
Providers Date of admission: 11/25/19 00:19 Attending physician: Graham Fishman Consults: 11/25/19 17:55 Consult Physician Routine Consulting Provider: Keagan Escobar Consult Reason/Comments: AML Do you want consulting provider notified?: Yes 11/25/19 17:59 Consult Physician Routine Consulting Provider: Olga Lidia Ness Consult Reason/Comments: Neutropenic fever Do you want consulting provider notified?: Yes 11/28/19 17:34 Consult Physician Routine Consulting Provider: Xi Martines Consult Reason/Comments: Hypoxia Do you want consulting provider notified?: Yes 12/01/19 10:27 Consult Physician Routine Consulting Provider: Devyn Nguyen Consult Reason/Comments: possible SBO Do you want consulting provider notified?: Already Contacted Primary care physician: [facility] Course: Patient is being discharged today to a facility with hospice. Patient hospice was initiated at that facility. Please refer to my progress note for further details of hospitalization and other medical problems that were addressed. Patient Condition at Discharge: Fair Plan - Discharge Summary Discharge Rx Participant: No New Discharge Prescriptions: New Venetoclax [Venclexta] 100 mg PO DAILY #3 tablet Discontinued Venetoclax [Venclexta] 200 mg PO DAILY No Action calcitrioL [Rocaltrol] 0.25 mcg PO TU allopurinoL [Zyloprim] 100 mg PO DAILY Folate 666 mcg PO DAILY amLODIPine [Norvasc] 10 mg PO DAILY #30 tab Levothyroxine Sodium [Synthroid] 100 mcg PO DAILY@0630 #30 tab Acetaminophen Tab [Tylenol] 325 - 650 mg PO Q4H PRN PRN Reason: Pain hydrALAZINE HCL [Apresoline] 25 mg PO BID Voriconazole 200 mg PO BID Discharge Medication List Folate 666 mcg PO DAILY 09/08/19 [History] allopurinoL [Zyloprim] 100 mg PO DAILY 09/08/19 [History] calcitrioL [Rocaltrol] 0.25 mcg PO TU 09/08/19 [History] Levothyroxine Sodium [Synthroid] 100 mcg PO DAILY@0630 #30 tab 10/25/19 [Rx] amLODIPine [Norvasc] 10 mg PO DAILY #30 tab 10/25/19 [Rx] Acetaminophen Tab [Tylenol] 325 - 650 mg PO Q4H PRN 11/19/19 [History] hydrALAZINE HCL [Apresoline] 25 mg PO BID 11/19/19 [History] Voriconazole 200 mg PO BID 11/25/19 [History] Venetoclax [Venclexta] 100 mg PO DAILY #3 tablet 11/29/19 [Rx] Follow up Appointment(s)/Referral(s): Db Boyd MD [Primary Care Provider] - 1-2 days Activity/Diet/Wound Care/Special Instructions: Resume venetoclax 100mg daily once completed with antibiotics COVID test ordered for Sun 12/04 Discharge Disposition: DISCH TO [facility]
--- NOTE | 2019-12-14 06:26 | CDI ---
Documentation Clarification Form Date: 12/13 From: Luann Ny Phone: If you have a question about this query, please contact April Crawford, Pot Filler at [phone] between 8am and 5pm. Admit Date: 11/25/19 Discharge Date: 12/10/19 Patient Name: KATIE HAM Visit Number: [id number] ATTENTION: The Clinical Documentation Specialists (CDI) and [facility] Coding Staff appreciate your assistance in clarifying documentation. Please respond to the clarification below the line at the bottom and electronically sign. The CDI & [facility] Coding staff will review the response and follow-up if needed. Please note: Queries are made part of the Legal Health Record. If you have any questions, please contact the author of this message via ITS. Dear Dr. Maria G Desai, The patient presents with decreased appetite, nausea and vomiting. History/Risk Factors: Admitted with neutropenic fever, AML, severe anemia, pancytpenia secondary to chemotherapy, PNA, metabolic encephalopathy, complete AV block, SBO, CARRIE, V tachycardia, COPD Clinical Indicators: Not tolerating diet, c/o nausea, vomiting clear liquids, 1- 25% consumed. Labs: Current BMI: 12/05-18.1, 12/07- 21.2, 12/09-23.1 Insufficient energy intake: 0.25% consumed Decreased strength: unable to move own body weight or change positions in the bed. Treatment: Enlive, TPN 12/07 Dietary Consult: Not consuming anything. Underweight. Inadequate energy intake. TPN: Amino Acid 4.25%-D10 w Lytes Lab monitorin/27-12/10/19 Total Protein: 6.6, 5.7, 6.1, 5.9, 6.6, 6.4, 6.2, 6.4, 6.6, 6.3, 6.2, 6.3, 6.2 Albumin: 3.3, 2.6, 2.9, 2.7, 3.2, 3.2, 3.1, 2.9, 3.1, 2.9, 3.1, 3.1, 3.0, 3.0, 3.0, 3.0 In your professional opinion, can you please clarify if these findings signify one of the following conditions? Underweight Mild Protein-Calorie Malnutrition Moderate Protein-Calorie Malnutrition Severe Protein-Calorie Malnutrition Malnutrition, unspecified Other condition, please specify Unable to determine Mild Protein-Calorie Malnutrition MTDD
--- NOTE | 2019-12-14 06:39 | CDI ---
Documentation Clarification Form Date: 12/13 From: Luann Ny Phone: If you have a question about this query, please contact April Crawford [employer] at [phone] between 8am and 5pm. Admit Date: 11/25/19 Discharge Date: 12/10/19 Patient Name: KATIE HAM Visit Number: [id number] ATTENTION: The Clinical Documentation Specialists (CDI) and [facility] Coding Staff appreciate your assistance in clarifying documentation. Please respond to the clarification below the line at the bottom and electronically sign. The CDI & [facility] Coding staff will review the response and follow-up if needed. Please note: Queries are made part of the Legal Health Record. If you have any questions, please contact the author of this message via ITS. Dear Dr. Maria G Desai, A pressure ulcer of the coccyx, stage II was documented in the 12/03 wound assessment. 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 Per 12/03 wound assessment-coccyx pressure injury, hospital acquired, Stage II. Wound description: no further description Treatment: no additional orders Elements for accurate and compliant documentation of an ulcer: *The location/laterality of the ulcer *Etiology (decubitus/pressure, diabetic, PVD) *Stage I-IV, Unstageable, Suspected Deep Tissue Injury (To the deepest stage) *If the ulcer was present at admission (POA) or occurred after admission In your professional opinion, can you please clarify the diagnosis, location, laterality and whether present on admission (POA): Stage 1 Pressure/Decubitus Ulcer (intact skin, non-blanching redness of local area) Stage 2 Pressure/Decubitus Ulcer (Partial thickness, loss of dermis, pink wound bed) Stage 3 Pressure/Decubitus Ulcer (Full thickness tissue loss) Stage 4 Pressure/Decubitus Ulcer (Full thickness tissue loss with exposed bone, tendon, or muscle. May have slough or eschar present) Unstageable Pressure ulcer ruled out Other condition, please specify Unable to determine Please indicate etiology of pressure ulcer (if known). Unable to determine MTDD
--- NOTE | 2019-12-16 11:49 | CDI ---
Documentation Clarification Form Date: 12/16/19 From: Tejal Porter Phone: If you have a question about this query, please contact April Crawford, [employer] at [phone] between 8am and 5pm. Admit Date: 11/25/19 Discharge Date:12/10/19 Patient Name: Roxane Jules Visit Number: [id number] ATTENTION: The Clinical Documentation Specialists (CDI) and [facility] Coding Staff appreciate your assistance in clarifying documentation. Please respond to the clarification below the line at the bottom and electronically sign. The CDI & [facility] Coding staff will review the response and follow-up if needed. Please note: Queries are made part of the Legal Health Record. If you have any questions, please contact the author of this message via ITS. Dear Dr. Rich The patient presented with the following neutropenic fever History/Risk Factors: Complete heart block developed on 11/29, AML receiving chemotherapy, pancytopenia secondary to chemotherapy, possible pneumonia, SBO Clinical Indicators: Elevated BP on 12/05 Lab findings: 12/06/19 - chloride 108, creatinine 63, BUN 1.36, glucose 105, calcium 8.2, total bili 4.0, AST 253, ALT 232, Alk phos 345 Vital Signs: Blood pressure on 12/05 - 175/53, 179/69, 172/117, 133/59, 146/57. T. 97.6, P. 54, R. 16 Treatment: Hydralazine increased from 25 mg to 50 mg q 6h In your professional opinion, can you please clarify the uncontrolled hypertension? Crisis Urgency Emergency Other, please specify Unable to determine urgency _ MTDD
== END 2019-12-10 19:30 | disposition hospice, inpatient (51) | DRG 808 ==
LOC: EC 23:40 → 4SSUR 11-25 00:19 → 3SCARD 11-29 20:27
PROVIDERS: ADMIT Hospitalist; ATTEND Hospitalist
PROC: 30233N1 Transfusion of Nonautologous Red Blood Cells into Peripheral Vein, Percutaneous Approach (ICD-10-PCS; 2019-11-27)
PROC: 30233R1 Transfusion of Nonautologous Platelets into Peripheral Vein, Percutaneous Approach (ICD-10-PCS; 2019-12-02)
PROC: 3E0436Z Introduction of Nutritional Substance into Central Vein, Percutaneous Approach (ICD-10-PCS; 2019-12-02)
PROC: 05HF33Z Insertion of Infusion Device into Left Cephalic Vein, Percutaneous Approach (ICD-10-PCS; principal; 2019-12-02 14:05)
DX: D61.810 Antineoplastic chemotherapy induced pancytopenia (principal); J96.01 Acute respiratory failure with hypoxia; G93.41 Metabolic encephalopathy; J18.9 Pneumonia, unspecified organism; I44.2 Atrioventricular block, complete; C92.00 Acute myeloblastic leukemia, not having achieved remission; K56.609 Unspecified intestinal obstruction, unspecified as to partial versus complete obstruction; T82.868A Thrombosis due to vascular prosthetic devices, implants and grafts, initial encounter; I82.622 Acute embolism and thrombosis of deep veins of left upper extremity; N17.9 Acute kidney failure, unspecified; I47.2 Ventricular tachycardia; E87.2 Acidosis; J90 Pleural effusion, not elsewhere classified; N18.4 Chronic kidney disease, stage 4 (severe); J98.11 Atelectasis; E44.1 Mild protein-calorie malnutrition; I27.20 Pulmonary hypertension, unspecified; Z66 Do not resuscitate; Z51.5 Encounter for palliative care; Z20.828 Contact with and (suspected) exposure to other viral communicable diseases; I12.9 Hypertensive chronic kidney disease with stage 1 through stage 4 chronic kidney disease, or unspecified chronic kidney disease; I16.0 Hypertensive urgency; R50.81 Fever presenting with conditions classified elsewhere; I44.7 Left bundle-branch block, unspecified; I08.3 Combined rheumatic disorders of mitral, aortic and tricuspid valves; E03.9 Hypothyroidism, unspecified; E86.0 Dehydration; E87.70 Fluid overload, unspecified; F32.9 Major depressive disorder, single episode, unspecified; T45.1X5A Adverse effect of antineoplastic and immunosuppressive drugs, initial encounter; R74.8 Abnormal levels of other serum enzymes; T50.915A Adverse effect of multiple unspecified drugs, medicaments and biological substances, initial encounter; M10.9 Gout, unspecified; Z68.22 Body mass index [BMI] 22.0-22.9, adult; Z79.890 Hormone replacement therapy; Z79.899 Other long term (current) drug therapy; Z90.49 Acquired absence of other specified parts of digestive tract; Z87.19 Personal history of other diseases of the digestive system; Z98.890 Other specified postprocedural states; Z90.710 Acquired absence of both cervix and uterus; Z87.42 Personal history of other diseases of the female genital tract; Z86.2 Personal history of diseases of the blood and blood-forming organs and certain disorders involving the immune mechanism; Z74.01 Bed confinement status; Z80.0 Family history of malignant neoplasm of digestive organs; Z82.49 Family history of ischemic heart disease and other diseases of the circulatory system
CPT/HCPCS: 36410; 36415; 36600; 70450; 71045; 71250; 74019; 74021; 74176; 76705; 76937; 80048; 80053; 80202; 81001; 82040; 82140; 82330; 82805; 83605; 83615; 83735; 84100; 84132; 84145; 84443; 84478; 84550; 85025; 85027; 85610; 85730; 86140; 86850; 86900; 86901; 86920; 87040; 87086; 93005; 93306; 93970; 94640; 94760; 96365; 96366; 99291